=== PATIENT | male | born 1945 | race Hispanic/Latino ===

== ENCOUNTER 2017-07-27 17:54 | Inpatient (IN) | payer MEDICARE ==
[~2017-07-27 17:54] MED LIST: AMIDATE IV ONE
[2017-07-27] MEDS ORDERED: ADRENALIN IV ONE (17:55)
[2017-07-27] MEDS ORDERED: LEVOPHED DRIP 4 MG/NS 250 ML 4 MG/250 ML BAG IV ONE (18:08)
[2017-07-27] MEDS ORDERED: NACL 0.9% 1000 ML 1,000 ML IV ONE (18:18)
[2017-07-27] MEDS ORDERED: ARTIFICIAL TEARS OPHTH OINT OU PRN (18:19)
[2017-07-27] MEDS ORDERED: VASELINE LIP THERAPY TP PRN (18:19)
[2017-07-27] MEDS: LEVOPHED DRIP 4 MG/NS 250 ML 4 MG/250 ML BAG IV SCH ×3 (18:20→18:57)
--- NOTE | 2017-07-27 18:24 | Emergency Department Report ---
ED CPR HPI - General Chief Complaint: Cardiac Arrest/CPR Stated Complaint: CARDIAC ARREST Time Seen by Provider: 07/27/17 18:18 Source: EMS (verbal report received from EMS.ems notes not available at time of chart dictation) Mode of arrival: Stretcher Limitations: Other - History of Present Illness Initial Comments: This is a 71-year-old male who was previously unknown to this provider. Patient brought to the hospital by EMS as out of hospital cardiac arrest. As per verbal report from EMS, patient collapsed, they've had some convulsive-like activity, and lost pulses. EMS reports initial rhythm was either ventricular tachycardia or ventricular fibrillation. Patient received epinephrine in the field, multiple shocks in the field, chest compressions, intubation, high quality CPR, and 300 mg of amiodarone. EMS for further reported that patient was pulseless for approximately 40 minutes prior to arrival to this emergency Department. Upon arrival to the ER, patient is intubated, pupils are fixed and dilated and do not react to light. He is pulseless and his rhythm appears to be pulseless electrical activity. High quality CPR is continued. Patient given 2 g of magnesium sulfate. Standard ACLS interventions are provided. Patient's pulses were able to be obtained in the emergency department. His postresuscitation EKG demonstrated a ventricular escape rhythm. He was markedly unstable, and therefore required emergent central line placement for vasopressor therapy. Given that patient is hemodynamically unstable, and in extremis, standard barrier precautions were not followed, as patient required emergent placement of a central line. Patient started on norepinephrine, and subsequently vasopressin. EKG and case were transmitted to customer support representative, Dr. Missy Hernandez, who indicated he will closely follow with the patient , but also indicated that the patient was not suitable for the catheterization lab at this time given hemodynamic instability, and prolonged downtime. Even convulsive event, there is also concern for possible intracranial hemorrhage. Patient is currently at CT scan getting a CAT scan of the brain, chest, abdomen , pelvis. EMS reports that there is no head trauma, and that patient wasn't home laying down. Contacted [facility], discussed with Dr. 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 MD Complaint: stopped breathing -: minute(s) Place: home Initial Findings in the Field: VTACH/VFIB ROSC in the Field: No Treatments Prior to Arrival: intubation, chest compressions, defribrillated shocks #, epinephrine mgs #, amiodarone, magnesium (given in the emergency room) - Related Data Allergies Allergy/AdvReac Type Severity Reaction Status Date / Time acetaminophen [From Vicodin] Allergy Unknown Verified 07/27/17 18:13 hydrocodone [From Vicodin] Allergy Unknown Verified 07/27/17 18:13 zolpidem [From Ambien] Allergy Unknown Verified 07/27/17 18:13 ED Review of Systems ROS: Stated complaint: CARDIAC ARREST Other details as noted in HPI Comment: Unobtainable due to pts medical conditions ED Past Medical Hx - Past Medical History Hx Hypertension: Yes Hx Heart Attack/AMI: Yes - Social History Smoking Status: Unknown if ever smoked ED Physical Exam - General Limitations: Other (patient intubated, nonverbal) General appearance: obtunded - Head Head exam: Present: atraumatic, normocephalic - Eye Eye exam: Present: other (fixed and dilated pupils they do not react to light). Absent: normal appearance - ENT ENT exam: Present: other (endotracheal tube is noted in the oropharynx) - Neck Neck exam: Present: normal inspection - Respiratory Respiratory exam: Present: rhonchi. Absent: chest wall tenderness, accessory muscle use - Cardiovascular Cardiovascular Exam: Present: normal rhythm, bradycardia, normal heart sounds - GI/Abdominal GI/Abdominal exam: Present: soft, normal bowel sounds. Absent: distended, tenderness, guarding, rebound, rigid, pulsatile mass - exam: Present: normal inspection External exam: Present: normal external exam - Extremities Exam Extremities exam: Absent: tenderness, joint swelling - Back Exam Back exam: Absent: tenderness, CVA tenderness (R) - Neurological Exam Neurological exam: Present: altered - Psychiatric Psychiatric exam: Present: other (intubated, GCS of 3) - Skin Skin exam: Present: dry ED Course Vital Signs 07/27/17 07/27/17 07/27/17 18:02 18:13 18:16 Pulse Rate 28 L 46 L 45 L Respiratory 12 16 15 Rate Blood Pressure 91/62 84/53 Blood Pressure [Left] O2 Sat by Pulse 97 99 Oximetry 07/27/17 07/27/17 07/27/17 18:20 18:30 18:40 Pulse Rate 44 L 39 L 49 L Respiratory 23 16 16 Rate Blood Pressure 87/54 Blood Pressure 87/54 75/52 126/74 [Left] O2 Sat by Pulse 100 96 97 Oximetry 07/27/17 07/27/17 07/27/17 18:46 18:50 19:00 Pulse Rate 54 L 55 L 51 L Respiratory 16 16 22 Rate Blood Pressure 126/74 77/57 Blood Pressure 86/56 [Left] O2 Sat by Pulse 84 99 100 Oximetry 07/27/17 07/27/17 07/27/17 19:16 19:20 19:30 Pulse Rate 51 L 53 L 57 L Respiratory 15 16 Rate Blood Pressure 72/35 69/33 69/30 Blood Pressure [Left] O2 Sat by Pulse 100 100 100 Oximetry 07/27/17 07/27/17 07/27/17 19:46 20:00 20:15 Pulse Rate 58 L 58 L 57 L Respiratory 16 16 16 Rate Blood Pressure 78/45 86/28 146/122 Blood Pressure [Left] O2 Sat by Pulse 100 100 99 Oximetry 07/27/17 07/27/17 07/27/17 20:30 21:03 21:15 Pulse Rate 58 L 61 65 Respiratory 15 13 14 Rate Blood Pressure 67/25 67/25 85/31 Blood Pressure [Left] O2 Sat by Pulse 99 100 Oximetry - Reevaluation(s) Reevaluation #1: 07/27/17 20:54 Differential diagnosis, including but not limited to: Acute coronary syndrome, intracranial hemorrhage, diaphragmatic rupture, Assessment and plan: 71-year-old male with out of hospital cardiac arrest, with return of spontaneous circulation. Case is presented to interventional cardiology, Dr. Hernandez there closely following in consultation. Patient's hemodynamics are tenuous, cardiology indicates not suitable for Property Damage Claims Adjustor at this time, but they would like to be closely appraised of the patient's status. Noncontrast CT scan of the brain is pending to exclude intracranial hemorrhage. Patient's intubation x-ray demonstrated elevated left hemidiaphragm, therefore noncontrast CT scan of chest, abdomen, pelvis pending. We will discussed with critical care provider contracting consultant once his scans have resulted. Reevaluation #2: 07/27/17 22:[address] scan of the brain is negative. CT scan of the chest demonstrates lower lobe pneumonia. CT scan of the abdomen and pelvis suggests no acute or obstructive pathology noted. Patient started on sepsis pathway. Case presented to Hospital physician , Dr. Mcduffie, she accepts the patient to the medical service. Case rediscussed with cardiology, Dr. Hernandez, given sepsis, underlying comorbidities, cardiology does not feel that patient will benefit from emergent catheterization at this time. 07/27/17 22:06 - Consultations Consultation #1: 07/27/17 21:[address] Sagar Anglin, critical care, he agrees with placement into the intensive care unit, this [facility] does not have hypothermia protocol, so therefore the patient cannot be started on hypothermia protocol. - Central Line Placement Left Femoral Consent Obtained: emergent situation Time Out Performed: Yes Patient Placed on Monitor/Pulse Ox: Yes Prep: gloves Central Line Prep: Chlorhexidine scrub Ultrasound Used for Placement: Yes Central Line Lumen Inserted: triple Bloods Obtained for Lab: Yes Central Line Position: good blood return Dressing Applied: Tegaderm Patient Tolerated Procedure: well Complications: none Additional Comments: Patient hemodynamically unstable status post cardiac arrest required emergent placement of central line for vasopressor therapy administration, therefore standard barrier precautions were not followed. ED Medical Decision Making - Lab Data Result diagrams: 07/27/17 18:26 07/27/17 18:26 Vital Signs 07/27/17 07/27/17 07/27/17 18:13 18:20 18:30 Pulse Rate 46 L 44 L 39 L Respiratory 16 23 27 H Rate Blood Pressure 91/62 Blood Pressure 87/54 75/52 [Left] O2 Sat by Pulse 97 100 96 Oximetry 07/27/17 07/27/17 07/27/17 18:40 18:50 19:20 Pulse Rate 49 L 55 L 53 L Respiratory 16 16 Rate Blood Pressure 69/33 Blood Pressure 126/74 86/56 [Left] O2 Sat by Pulse 97 99 100 Oximetry Lab Results 07/27/17 07/27/17 07/27/17 Range/Units 18:24 18:26 18:26 WBC 15.6 H (4.5-11.0) K/mm3 RBC 4.64 (3.65-5.03) M/mm3 Hgb 13.1 (11.8-15.2) gm/dl Hct 41.5 (35.5-45.6) % MCV 89 (84-94) fl MCH 28 (28-32) pg MCHC 32 (32-34) % RDW 14.3 (13.2-15.2) % Plt Count 115 L (140-440) K/mm3 Add Manual Diff Complete Total Counted 100 Seg Neuts % (Manual) 57.0 (40.0-70.0) % Band Neutrophils % 0 % Lymphocytes % (Manual) 36.0 H (13.4-35.0) % Reactive Lymphs % (Man) 0 % Monocytes % (Manual) 7.0 (0.0-7.3) % Eosinophils % (Manual) 0 (0.0-4.3) % Basophils % (Manual) 0 (0.0-1.8) % Metamyelocytes % 0 % Myelocytes % 0 % Promyelocytes % 0 % Blast Cells % 0 % Nucleated RBC % Not Reportable Seg Neutrophils # Man 8.9 H (1.8-7.7) K/mm3 Band Neutrophils # 0.0 K/mm3 Lymphocytes # (Manual) 5.6 H (1.2-5.4) K/mm3 Abs React Lymphs (Man) 0.0 K/mm3 Monocytes # (Manual) 1.1 H (0.0-0.8) K/mm3 Eosinophils # (Manual) 0.0 (0.0-0.4) K/mm3 Basophils # (Manual) 0.0 (0.0-0.1) K/mm3 Metamyelocytes # 0.0 K/mm3 Myelocytes # 0.0 K/mm3 Promyelocytes # 0.0 K/mm3 Blast Cells # 0.0 K/mm3 WBC Morphology Not Reportable Hypersegmented Neuts Not Reportable Hyposegmented Neuts Not Reportable Hypogranular Neuts Not Reportable Smudge Cells Not Reportable Toxic Granulation Not Reportable Toxic Vacuolation Not Reportable Dohle Bodies Not Reportable Pelger-Huet Anomaly Not Reportable [place] Rods Not Reportable Platelet Estimate Consistent w auto Clumped Platelets Not Reportable Plt Clumps, EDTA Not Reportable Large Platelets Not Reportable Giant Platelets Not Reportable Platelet Satelliting Not Reportable Plt Morphology Comment Not Reportable RBC Morphology Not Reportable Dimorphic RBCs Not Reportable Polychromasia Not Reportable Hypochromasia Not Reportable Poikilocytosis Not Reportable Anisocytosis Rare Microcytosis Not Reportable Macrocytosis Not Reportable Spherocytes Not Reportable Pappenheimer Bodies Not Reportable Sickle Cells Not Reportable Target Cells Not Reportable Tear Drop Cells Not Reportable Ovalocytes Not Reportable Helmet Cells Not Reportable [place] Bodies Not Reportable [place] Not Reportable [place] Cells Not Reportable Bite Cells Not Reportable Crenated Cell Not Reportable Elliptocytes Not Reportable Acanthocytes (Spur) Not Reportable Rouleaux Not Reportable Hemoglobin C Crystals Not Reportable Schistocytes Not Reportable Malaria parasites Not Reportable Mina Bodies Not Reportable Hem Pathologist Commnt No PT 15.6 H (12.2-14.9) Sec. INR 1.18 H (0.87-1.13) APTT 38.5 H (24.2-36.6) Sec. POC ABG pH (7.35-7.45) POC ABG pCO2 (35-45) POC ABG pO2 (80-105) POC ABG HCO3 POC ABG Total CO2 POC ABG O2 Sat POC ABG Base Excess FiO2 % Sodium (137-145) mmol/L Potassium (3.6-5.0) mmol/L Chloride (98-107) mmol/L Carbon Dioxide (22-30) mmol/L Anion Gap mmol/L BUN (9-20) mg/dL Creatinine (0.8-1.5) mg/dL Estimated GFR ml/min BUN/Creatinine Ratio % Glucose (75-100) mg/dL Lactic Acid (0.7-2.0) mmol/L Calcium (8.4-10.2) mg/dL Total Creatine Kinase (55-170) units/L CK-MB (CK-2) (0.0-4.0) ng/mL CK-MB (CK-2) Rel Index (0-4) Troponin T (0.00-0.029) ng/mL Triglycerides (2-149) mg/dL Cholesterol (50-199) mg/dL LDL Cholesterol Direct (50-130) mg/dL HDL Cholesterol (40-59) mg/dL Cholesterol/HDL Ratio % Blood Type A POSITIVE Antibody Screen Negative 07/27/17 07/27/17 07/27/17 Range/Units 18:26 19:02 19:25 WBC (4.5-11.0) K/mm3 RBC (3.65-5.03) M/mm3 Hgb (11.8-15.2) gm/dl Hct (35.5-45.6) % MCV (84-94) fl MCH (28-32) pg MCHC (32-34) % RDW (13.2-15.2) % Plt Count (140-440) K/mm3 Add Manual Diff Total Counted Seg Neuts % (Manual) (40.0-70.0) % Band Neutrophils % % Lymphocytes % (Manual) (13.4-35.0) % Reactive Lymphs % (Man) % Monocytes % (Manual) (0.0-7.3) % Eosinophils % (Manual) (0.0-4.3) % Basophils % (Manual) (0.0-1.8) % Metamyelocytes % % Myelocytes % % Promyelocytes % % Blast Cells % % Nucleated RBC % Seg Neutrophils # Man (1.8-7.7) K/mm3 Band Neutrophils # K/mm3 Lymphocytes # (Manual) (1.2-5.4) K/mm3 Abs React Lymphs (Man) K/mm3 Monocytes # (Manual) (0.0-0.8) K/mm3 Eosinophils # (Manual) (0.0-0.4) K/mm3 Basophils # (Manual) (0.0-0.1) K/mm3 Metamyelocytes # K/mm3 Myelocytes # K/mm3 Promyelocytes # K/mm3 Blast Cells # K/mm3 WBC Morphology Hypersegmented Neuts Hyposegmented Neuts Hypogranular Neuts Smudge Cells Toxic Granulation Toxic Vacuolation Dohle Bodies Pelger-Huet Anomaly [place] Rod[place] Platelet Estimate Clumped Platelets Plt Clumps, EDTA Large Platelets Giant Platelets Platelet Satelliting Plt Morphology Comment RBC Morphology Dimorphic RBCs Polychromasia Hypochromasia Poikilocytosis Anisocytosis Microcytosis Macrocytosis Spherocytes Pappenheimer Bodies Sickle Cells Target Cells Tear Drop Cells Ovalocytes Helmet Cells [place] Bodies [place] Cells Bite Cells Crenated Cell Elliptocytes Acanthocytes (Spur) Rouleaux Hemoglobin C Crystals Schistocytes Malaria parasites Mina Bodies Hem Pathologist Commnt PT (12.2-14.9) Sec. INR (0.87-1.13) APTT (24.2-36.6) Sec. POC ABG pH 7.155 L (7.35-7.45) POC ABG pCO2 47.7 H (35-45) POC ABG pO2 229 H (80-105) POC ABG HCO3 16.8 POC ABG Total CO2 18 POC ABG O2 Sat 100 POC ABG Base Excess -12 FiO2 100 % Sodium 143 (137-145) mmol/L Potassium 4.2 (3.6-5.0) mmol/L Chloride 103.6 (98-107) mmol/L Carbon Dioxide 21 L (22-30) mmol/L Anion Gap 23 mmol/L BUN 19 (9-20) mg/dL Creatinine 1.3 (0.8-1.5) mg/dL Estimated GFR 55 ml/min BUN/Creatinine Ratio 15 % Glucose 252 H (75-100) mg/dL Lactic Acid 6.00 H* (0.7-2.0) mmol/L Calcium 7.7 L (8.4-10.2) mg/dL Total Creatine Kinase 101 (55-170) units/L CK-MB (CK-2) 3.9 (0.0-4.0) ng/mL CK-MB (CK-2) Rel Index 3.8 (0-4) Troponin T 0.090 H (0.00-0.029) ng/mL Triglycerides 190 H (2-149) mg/dL Cholesterol 93 (50-199) mg/dL LDL Cholesterol Direct 34 L (50-130) mg/dL HDL Cholesterol 21 L (40-59) mg/dL Cholesterol/HDL Ratio 4.42 % Blood Type Antibody Screen - EKG Data 07/27/17 20:58 EKG #1 demonstrates junctional rhythm, bradycardic, 45 bpm, left axis deviation , QTC prolonged, abnormal EKG, not morphologically consistent with ST elevation myocardial infarction. EKG #2 suggests accelerated junctional rhythm, motion artifact, left axis, 58 bpm, not morphologically consistent with ST elevation myocardial infarction. - Radiology Data Radiology results: report reviewed, image reviewed [facility] [address] [place] [address] XRay Report Signed Patient: MARY SANTANA MR#: [id number] : 1945 Acct:[id number] Age/Sex: 71 / M ADM Date: 07/27/17 Loc: ED Attending Dr: Ordering Physician: KRANTHI VEGA MD Date of Service: 07/27/17 Procedure(s): XR chest 1V ap Accession Number(s): [id number] cc: KRANTHI VEGA MD Fluoro Time In Minutes: FINAL REPORT PROCEDURE: XR CHEST 1V AP TECHNIQUE: Chest radiograph anteroposterior view. CPT 63729 HISTORY: ETT placement COMPARISON: No prior studies are available for comparison. FINDINGS: Heart: Moderate cardiomegaly. One Mediastinum/Vessels: Mild central congestion. Midline sternotomy wires and vascular clips. Lungs/Pleural space: Elevation left hemidiaphragm with left lung base atelectasis. COPD. Bony thorax: No acute osseous abnormality. Life support devices: Endotracheal tube tip 6 centimeters from the bifurcation. NG tube along the esophagus terminating in the left upper quadrant region of fundus. IMPRESSION: Elevation left hemidiaphragm with left lung base atelectasis. Heart is not enlarged with central vascular congestion Transcribed By: WEP Dictated By: ALBER CHOI MD Electronically Authenticated By: ALBER CHOI MD Signed Date/Time: 07/27/17 1606 Critical Care Time: Yes Critical care time in (mins) excluding proc time.: 60 Critical care attestation.: If time is entered above; I have spent that time in minutes in the direct care of this critically ill patient, excluding procedure time. ED Disposition Clinical Impression: SIRS (systemic inflammatory response syndrome), Cardiac arrest Disposition: OP ADMIT IP TO THIS HOSP Is pt being admited?: Yes Condition: Critical Referrals: PRIMARY CARE, [Referring] - 3-5 Days
[2017-07-27] MEDS ORDERED: NACL 0.9% 1000 ML 2,000 ML IV ONE (18:25)
[2017-07-27 18:46] LABS: Hematocrit 41.5 % (35.5-45.6); Hemoglobin 13.1 gm/dl (11.8-15.2); Mean Corpuscular HGB Conc 32 % (32-34); Mean Corpuscular Hemoglobin 28 pg (28-32); Mean Corpuscular Volume 89 fl (84-94); Platelet Count 115 K/mm3 (140-440); Red Blood Count 4.64 M/mm3 (3.65-5.03); Red Cell Distribution Width 14.3 % (13.2-15.2)
[2017-07-27 18:56] LABS: INR 1.18 (0.87-1.13)
[2017-07-27 18:57] LABS: Partial Thromboplastin Time 38.5 Sec. (24.2-36.6)
[2017-07-27] MEDS ORDERED: ATIVAN 100 MG in NACL 0.9% 50 ML, VIAFLEX EMPTY CONTAINER 0 ML IV SCH (19:00)
[2017-07-27] MEDS ORDERED: fentaNYL DRIP Premix 2,000 MCG/100 ML BAG IV SCH (19:00)
[2017-07-27] MEDS ORDERED: NACL 0.9% 500 ML IV SCH (19:00)
[2017-07-27 19:14] LABS: Calcium 7.7 mg/dL (8.4-10.2)
[2017-07-27 19:16] LABS: Creatine Kinase MB 3.9 ng/mL (0.0-4.0)
[2017-07-27 19:29] LABS: Chol/HDL Ratio 4.42 %
[2017-07-27] MEDS: Vasostrict 20 UNIT in NACL 0.9% 100 ML IV SCH (19:35)
[2017-07-27 19:58] LABS: Basophils % (Manual) 0 % (0.0-1.8); Eosinophils % (Manual) 0 % (0.0-4.3); Total Cells Counted 100
[2017-07-27 19:59] LABS: Anisocytosis RARE; Platelet Estimate Consistent w Auto
--- NOTE | 2017-07-27 20:09 | XRay Report ---
FINAL REPORT PROCEDURE: XR CHEST 1V AP TECHNIQUE: Chest radiograph anteroposterior view. CPT 36904 HISTORY: ETT placement COMPARISON: No prior studies are available for comparison. FINDINGS: Heart: Moderate cardiomegaly. One Mediastinum/Vessels: Mild central congestion. Midline sternotomy wires and vascular clips. Lungs/Pleural space: Elevation left hemidiaphragm with left lung base atelectasis. COPD. Bony thorax: No acute osseous abnormality. Life support devices: Endotracheal tube tip 6 centimeters from the bifurcation. NG tube along the esophagus terminating in the left upper quadrant region of fundus. IMPRESSION: Elevation left hemidiaphragm with left lung base atelectasis. Heart is not enlarged with central vascular congestion
--- NOTE | 2017-07-27 21:13 | Cat Scan Report ---
FINAL REPORT PROCEDURE: CT HEAD/BRAIN WO CON TECHNIQUE: Computerized tomography of the head was performed without contrast material. HISTORY: ams COMPARISON: No prior studies are available for comparison. FINDINGS: Skull and scalp: Normal. Paranasal sinuses: Air-fluid level and thickening maxillary sinuses left greater than right Ventricles and subarachnoid spaces: Normal. Cerebrum: No evidence of hemorrhage, acute infarction or mass . Cerebellum and brainstem: No evidence of hemorrhage, acute infarction or mass. Vasculature: No hyperdense MCA Comments: Moderate diffuse atrophy with mild to moderate periventricular microischemic change and central lacunar infarct disease. IMPRESSION: No definite evidence of acute intracranial pathology seen at this time. If symptoms and or concern persists recommend followup MRI.
--- NOTE | 2017-07-27 21:47 | Cat Scan Report ---
FINAL REPORT PROCEDURE: CT ABDOMEN PELVIS WO CON TECHNIQUE: Computerized axial tomography of the abdomen and pelvis was performed without intravenous contrast. This study is performed without intravascular contrast material and its sensitivity for abdominal and pelvic pathology, including neoplasms, inflammation, abscess, free fluid, thrombosis, arterial dissection and infarction, is reduced compared with a contrast enhanced study. HISTORY: cardiac arrest COMPARISON: No prior studies are available for comparison. FINDINGS: Streak artifact related to EKG wires and leads arm positioning Visualized lower thorax: Defer to CT chest. Patchy atelectasis lower lung zones. Elevation left hemidiaphragm. Liver: Enlarged heterogeneous appearing liver with mild perihepatic ascites. Spleen: Splenic atrophy. Gallbladder and biliary system: Metallic clips from prior cholecystectomy Pancreas: No diffuse pancreatic atrophy with slight indistinctness about the pancreatic head. Adrenals: Normal. Kidneys: Heterogeneous kidneys with low attenuated lesions in each kidney largest seen in the right lower kidney in the 4 centimeter range likely cysts. Mild stranding around each kidney. 2 millimeter nephrolith right upper kidney 2 millimeter urolith left mid upper kidney. GI tract: No oral contrast. NG tube in the fundus.. Moderate stool density throughout the large bowel normal caliber appendix. Mild thickening of the mid transverse colon nonspecific. Fluid-filled mildly distended cecum Lymph nodes and mesentery: Normal. Vasculature: Normal. Bladder: Jacob balloon catheter in the decompressed bladder . Reproductive organs: Metallic seed implants in the prostate region Peritoneum: No free fluid. Musculoskeletal structures: No significant abnormality. Other: Bilateral inguinal herniations fat without bowel involvement. Left common femoral venous catheter tip in the external iliac vein IMPRESSION: No acute or obstructive pathology seen of the abdomen pelvis.
--- NOTE | 2017-07-27 21:53 | Cat Scan Report ---
FINAL REPORT PROCEDURE: CT CHEST WO CON TECHNIQUE: Computerized axial tomography of the chest was performed without contrast material. This study is performed without intravenous contrast and the sensitivity for pathology, including neoplasms, adenopathy, abscess, pulmonary embolism and aortic dissection, is reduced. HISTORY: arrest COMPARISON: CT abdomen pelvis today TECHNICAL QUALITY: Satisfactory. FINDINGS: Heart and pericardium: Mild to moderate cardiomegaly. Prior sternotomy Thoracic aorta: Atherosclerosis. Pulmonary vasculature: Mild to moderate central congestion. Indeterminate evaluation of the lumen of the pulmonary vessels without IV contrast Lymph nodes: Mediastinal and hilar lymph nodes mildly prominent. Right pretracheal and left periaortic lymphadenopathy measuring in the 1 x 1.5 centimeter range seen. Lungs/pleural space: Elevation left hemidiaphragm. Airspace process in the left lower lung zone with consolidative features.. Bilateral pleural thickening and posterior lower lung zone atelectasis. Hazy interstitial markings in the lower lung zones with bronchovascular sheath thickening. Trace left pleural effusion. Musculoskeletal structures: No significant abnormality. Upper abdominal structures: Contracted gallbladder with possible stones. Indeterminate for slight stranding around the gallbladder fossa area. Adrenal hyperplasia left adrenal gland Endotracheal tube tip above the bifurcation. NG tube along the esophagus. IMPRESSION: Patchy airspace infiltrate in the left lower lung zone with trace pleural effusion. Elevation left hemidiaphragm. Posterior lower lung zone atelectasis. Heavily calcified atherosclerosis aorta. Endotracheal tube and NG tube in place.
[2017-07-27] MEDS ORDERED: ROCEPHIN/NS 1 GM/50 ML 1 GM/50 ML BAG IV ONE (22:03)
[2017-07-27] MEDS ORDERED: NACL 0.9% 1000 ML IV ONE (22:03)
[2017-07-27] MEDS ORDERED: ASPIRIN PR ONE (22:06)
[2017-07-27 22:13] LABS: Creatine Kinase MB 4.8 ng/mL (0.0-4.0)
[2017-07-27] MEDS ORDERED: ROCEPHIN 1 GM in NACL 0.9% 20 ML IV ONE (22:15)
[2017-07-27] MEDS ORDERED: ZOFRAN IV PRN (22:36)
[2017-07-27] MEDS ORDERED: PROVENTIL IH PRN (22:36)
--- NOTE | 2017-07-27 22:50 | History and Physical Report ---
History of Present Illness Date of examination: 07/27/17 History of present illness: 71 year old man with history of CAD, CHF was brought to the emerghency room after he had a cardiac arrest at home. Spouse at bedside states that he had a cough productive of yellow phlegm, fever 3 days. Today he was healthy and his family at home to put away packages, he became short of breath and 5 minutes later, the family went to check on him, he was not breathing, they started CPR. EMS was called, CPR was continued for another 40 minutes prior to arrival in the emergency room, he had a V. fib or V. tach rhythm for which he was shocked per EMS. CPR was continued in the emergency room, he was hypotensive and placed on levothyroid and vasopressin. Her review of system is unobtainable PAST MEDICAL HISTORY:CAD, CHF PAST SURGICAL HISTORY CABG, wrist: FAMILY HISTORY: Hypertension SOCIAL HISTORY: No alcohol, tobacco or drugs Medications and Allergies Allergies Allergy/AdvReac Type Severity Reaction Status Date / Time acetaminophen [From Vicodin] Allergy Unknown Verified 07/27/17 18:13 hydrocodone [From Vicodin] Allergy Unknown Verified 07/27/17 18:13 zolpidem [From Ambien] Allergy Unknown Verified 07/27/17 18:13 Home Medications Medication Instructions Recorded Confirmed Last Taken Type Aspirin [Aspirin BABY CHEW TAB] 1 tab PO QDAY 07/29/17 07/29/17 07/25/17 History AtorvaSTATin [Lipitor] 40 mg PO QHS 07/29/17 07/29/17 07/25/17 History Clopidogrel [Plavix] 75 mg PO QDAY 07/29/17 07/29/17 07/25/17 History ISOSORBIDE MONOnitrate [Imdur ER] 30 mg PO DAILY 07/29/17 07/29/17 07/25/17 History Spironolactone [Aldactone] 25 mg PO QDAY 07/29/17 07/29/17 07/25/17 History Tamsulosin HCl [Flomax] 1 tab PO QDAY 07/29/17 07/29/17 07/25/17 History Carvedilol [Coreg] 12.5 mg PO BID 07/30/17 07/30/17 07/27/17 09:00 History Sacubitril/Valsartan [Entresto 49 49 - 51 mg PO BID 07/30/17 07/30/17 07/27/17 09:00 History mg-51 mg Tablet] Active Meds: Active Medications Albuterol (Proventil) 2.5 mg IH Q3HRT PRN PRN Reason: Shortness Of Breath Enoxaparin Sodium (Lovenox) 40 mg SUB-Q QDAY DANIEL Hydrophilic Ointment (Vaseline Lip Therapy) 1 applic TP Q2HR PRN PRN Reason: Dry Lips Fentanyl Citrate (Fentanyl Drip Premix) 2,000 mcg in 100 mls @ 5.216 mls/hr IV TITR DANIEL; 1 MCG/KG/HR PRN Reason: Protocol Lorazepam 100 mg/ Sodium Chloride/ Miscellaneous Information 100 mls @ 1 mls/ hr IV TITR DANIEL; 1 MG/HR PRN Reason: Protocol Norepinephrine (Levophed Drip 4 Mg/Ns 250 Ml) 4 mg in 250 mls @ 7.5 mls/hr IV TITR DANIEL; 2 MCG/MIN PRN Reason: Protocol Last Admin: 07/27/17 18:57 Dose: 25 mcg/min, 93.75 mls/hr Vasopressin 20 unit/ Sodium (Chloride) 101 mls @ 9.09 mls/hr IV TITR DANIEL; 0.03 UNITS/MIN PRN Reason: Protocol Last Admin: 07/27/17 19:35 Dose: 0.03 units/min, 9.09 mls/hr Piperacillin Sod/Tazobactam Sod (Zosyn/Ns 3.375gm/50ml) 3.375 gm in 50 mls @ 100 mls/hr IV Q8HR DANIEL PRN Reason: Protocol Multi-Ingred Cream/Lotion/Oil/Oint (Artificial Tears Ophth Oint) 1 applic OU Q4HR PRN PRN Reason: Dry Eye(s) Ondansetron HCl (Zofran) 4 mg IV Q8H PRN PRN Reason: N/V unrelieved by Reglan Sodium Chloride (Nacl 0.9% 500 Ml) 1 ml IV DIRECT DANIEL Exam - Physical Exam Narrative exam: Gen. appearance: Patient lying in bed in no acute distress, intubated HEENT: Normocephalic/atraumatic, pupils non-reactive, unable to do extra occular movement , no scleral icterus, no JVD or thyromegaly or nodule, neck is supple, mucous membrane moist, unable to examine oral cavity Heart: S1-S2, regular rate and rhythm Lungs: Clear to auscultation bilateral breathing comfortable Abdomen: Positive bowel sounds, soft, nondistended, no organomegaly Extremities: No edema, cyanosis, clubbing Neuro:: Sedated Skin: No rash, nodules, warm dry - Constitutional Vitals: Temp Pulse Resp BP Pulse Ox 66 18 112/37 99 07/27/17 22:15 07/27/17 22:15 07/27/17 22:15 07/27/17 22:15 Results - Labs CBC & Chem 7: 08/07/17 05:24 08/07/17 05:24 Labs: Abnormal lab results 07/27/17 07/27/17 07/27/17 Range/Units 18:26 18:26 18:26 WBC 15.6 H (4.5-11.0) K/mm3 Plt Count 115 L (140-440) K/mm3 Lymphocytes % (Manual) 36.0 H (13.4-35.0) % Seg Neutrophils # Man 8.9 H (1.8-7.7) K/mm3 Lymphocytes # (Manual) 5.6 H (1.2-5.4) K/mm3 Monocytes # (Manual) 1.1 H (0.0-0.8) K/mm3 PT 15.6 H (12.2-14.9) Sec. INR 1.18 H (0.87-1.13) APTT 38.5 H (24.2-36.6) Sec. POC ABG pH (7.35-7.45) POC ABG pCO2 (35-45) POC ABG pO2 (80-105) Carbon Dioxide 21 L (22-30) mmol/L Glucose 252 H (75-100) mg/dL Lactic Acid (0.7-2.0) mmol/L Calcium 7.7 L (8.4-10.2) mg/dL CK-MB (CK-2) (0.0-4.0) ng/mL Troponin T 0.090 H (0.00-0.029) ng/mL Triglycerides 190 H (2-149) mg/dL LDL Cholesterol Direct 34 L (50-130) mg/dL HDL Cholesterol 21 L (40-59) mg/dL 07/27/17 07/27/1707/27/17 Range/Units 19:02 19:25 21:43 WBC (4.5-11.0) K/mm3 Plt Count (140-440) K/mm3 Lymphocytes % (Manual) (13.4-35.0) % Seg Neutrophils # Man (1.8-7.7) K/mm3 Lymphocytes # (Manual) (1.2-5.4) K/mm3 Monocytes # (Manual) (0.0-0.8) K/mm3 PT (12.2-14.9) Sec. INR (0.87-1.13) APTT (24.2-36.6) Sec. POC ABG pH 7.155 L (7.35-7.45) POC ABG pCO2 47.7 H (35-45) POC ABG pO2 229 H (80-105) Carbon Dioxide (22-30) mmol/L Glucose (75-100) mg/dL Lactic Acid 6.00 H* (0.7-2.0) mmol/L Calcium (8.4-10.2) mg/dL CK-MB (CK-2) 4.8 H (0.0-4.0) ng/mL Troponin T 0.149 H* D (0.00-0.029) ng/mL Triglycerides (2-149) mg/dL LDL Cholesterol Direct (50-130) mg/dL HDL Cholesterol (40-59) mg/dL - Imaging and Cardiology EKG: image reviewed Chest x-ray: image reviewed CT scan - abdomen: report reviewed CT scan - chest: report reviewed CT Scan - head: report reviewed Assessment and Plan Assessment Cardiac arrest Acute respiratory failure Septic shock Coronary artery disease CHF, stable Thrombocytopenia Plan Admit to medicine Continue levothyroid, vasopressin, and IV fluid, the patient with CHF Start Zosyn, first dose now, vancomycin, continue Rocephin, follow cultures Check serial lactate, check cardiac enzymes, echo Consult cardiology, critical care DT prophylaxis
[2017-07-27 23:19] LABS: Amphetamine Screen,Urine PRESUMPTIVE NEGATIVE; Benzodiazepines Screen,Urine PRESUMPTIVE NEGATIVE; Cannabinoid Screen,Urine PRESUMPTIVE NEGATIVE; Cocaine Screen,Urine PRESUMPTIVE NEGATIVE; Methadone Screen,Urine PRESUMPTIVE NEGATIVE; Opiate Screen,Urine PRESUMPTIVE NEGATIVE
[2017-07-27 23:41] LABS: Creatine Kinase MB 9.4 ng/mL (0.0-4.0)
[2017-07-27 23:51] LABS: Bacteria,Urine 1+ /HPF (Negative); Mucus,Urine FEW /HPF
[2017-07-27 23:57] LABS: Bilirubin,Urine Negative (Negative); Color,Urine Yellow (Yellow)
[2017-07-27 23:58] LABS: Blood,Urine Trace (Negative)
[2017-07-27 23:59] LABS: Nitrite,Urine Negative (Negative); Urobilinogen,Urine < 2.0 mg/dL (<2.0)
[2017-07-28] MEDS: ZOSYN/NS 3.375GM/50ML 3.375 GM/50 ML BAG IV SCH ×2 (00:08→08:40)
[2017-07-28] MEDS: LEVOPHED DRIP 4 MG/NS 250 ML 4 MG/250 ML BAG IV SCH ×2 (00:37→02:52)
[2017-07-28] MEDS ORDERED: LEVOPHED DRIP 4 MG/NS 250 ML 4 MG/250 ML BAG IV SCH (01:00)
[2017-07-28] MEDS ORDERED: VANCOMYCIN/NS 1 GM/250 ML 1 GM/250 ML BAG IV ONE (02:00)
--- NOTE | 2017-07-28 02:39 | XRay Report ---
FINAL REPORT EXAM: XR CHEST 1V AP HISTORY: follow up respiratory failure TECHNIQUE: A portable upright view of the chest was submitted. Comparison is made the study of 07/27/2017. FINDINGS: There are sternotomy sutures. The heart is moderately enlarged. The lungs are mildly congested. There is chronic elevation of the left hemidiaphragm. The ET tube and NG tube appear in good position. The bones and soft tissues otherwise are unchanged. IMPRESSION: Previous bypass surgery. Cardiomegaly with mild vascular congestion.
[2017-07-28] MEDS: Vasostrict 20 UNIT in NACL 0.9% 100 ML IV SCH ×2 (03:44→15:48)
[2017-07-28 06:46] LABS: Hematocrit 42.8 % (35.5-45.6); Hemoglobin 13.3 gm/dl (11.8-15.2); Lymphocytes # (Auto) 1.4 K/mm3 (1.2-5.4); Lymphocytes % (Auto) 8.4 % (13.4-35.0); Mean Corpuscular HGB Conc 31 % (32-34); Mean Corpuscular Hemoglobin 28 pg (28-32); Mean Corpuscular Volume 90 fl (84-94); Monocytes # (Auto) 1.3 K/mm3 (0.0-0.8); Monocytes % (Auto) 7.5 % (0.0-7.3); Platelet Count 141 K/mm3 (140-440); Red Blood Count 4.79 M/mm3 (3.65-5.03); Red Cell Distribution Width 14.5 % (13.2-15.2)
[2017-07-28 07:09] LABS: Calcium 6.8 mg/dL (8.4-10.2)
[2017-07-28 07:11] LABS: Creatine Kinase MB 10.8 ng/mL (0.0-4.0)
--- NOTE | 2017-07-28 08:44 | Progress Note ---
Assessment and Plan Assessment and plan: Cardio-resp arrest at home. Admitted to ICU. He is intubated, on vent. Pulm consulted. As per ED Physician notes, downtime about 40 mins, no pulse for about 40 mins. He had ventricular fib/v tach rhythm, was shocked, given Amiodarone,intubated by paramedics before before brought to ED. CPR continued in ED before he regained pulse. Cardiology and Pulmonology consulted. Shock. Cardiogenic +/- septic shock. He is on 2 pressors-Levophed and Vasopressin. Titrate to keep MAP > 65 Acute kidney Injury due to acute tubular necrosis. Creatinine increased. Was 1.3 on admission, now 2.0. Consult Nephrology. Elevated Troponin. To r/o NSTEMI CAD s/p CABG. cardiology consulted. Ischemic cardiomyopathy Encephalopathy Full code status Discussed with at bedside. I informed her that prognosis is poor because of about 40mins downtime. I discussed code status and she wishes to continue full code. History Interval history: Patient had cardio-resp arrest at home, brought to ED by paramadics, Intubated, on vent Hospitalist Physical - Physical exam Narrative exam: GEN APPEARANCE : Intubated,on ventilator HEENT: Normocephalic, atraumatic NECK : supple, no JVD LUNGS: Clear to auscultation bilaterally, no wheeze, HEART: S1 and S2 regular, no murmurs, rubs or gallop, ABD: Soft, non tender, non distended, normal bowel sounds EXT: No edema, no clubbing, no cyanosis NEURO: Unresponsive, intubated - Constitutional Vitals: Temp Pulse Resp BP Pulse Ox 99.4 F 61 16 119/74 98 07/28/17 07:55 07/28/17 07:40 07/28/17 07:40 07/28/17 07:40 07/28/17 07:40 Results - Labs CBC & Chem 7: 07/28/17 06:30 07/28/17 05:44 Labs: Laboratory Last Values WBC 16.9 K/mm3 (4.5-11.0) H 07/28/17 06:30 RBC 4.79 M/mm3 (3.65-5.03) 07/28/17 06:30 Hgb 13.3 gm/dl (11.8-15.2) 07/28/17 06:30 Hct 42.8 % (35.5-45.6) 07/28/17 06:30 MCV 90 fl (84-94) 07/28/17 06:30 MCH 28 pg (28-32) 07/28/17 06:30 MCHC 31 % (32-34) L 07/28/17 06:30 RDW 14.5 % (13.2-15.2) 07/28/17 06:30 Plt Count 141 K/mm3 (140-440) 07/28/17 06:30 Lymph % (Auto) 8.4 % (13.4-35.0) L 07/28/17 06:30 [place] % (Auto) 7.5 % (0.0-7.3) H 07/28/17 06:30 Eos % (Auto) 0.0 % (0.0-4.3) 07/28/17 06:30 Baso % (Auto) 0.0 % (0.0-1.8) 07/28/17 06:30 Lymph # 1.4 K/mm3 (1.2-5.4) 07/28/17 06:30 [place] # 1.3 K/mm3 (0.0-0.8) H 07/28/17 06:30 Eos # 0.0 K/mm3 (0.0-0.4) 07/28/17 06:30 Baso # 0.0 K/mm3 (0.0-0.1) 07/28/17 06:30 Add Manual Diff Complete 07/27/17 18:26 Total Counted 100 07/27/17 18:26 Seg Neutrophils % 84.1 % (40.0-70.0) H 07/28/17 06:30 Seg Neuts % (Manual) 57.0 % (40.0-70.0) 07/27/17 18:26 Band Neutrophils % 0 % 07/27/17 18:26 Lymphocytes % (Manual) 36.0 % (13.4-35.0) H 07/27/17 18:26 Reactive Lymphs % (Man) 0 % 07/27/17 18:26 Monocytes % (Manual) 7.0 % (0.0-7.3) 07/27/17 18:26 Eosinophils % (Manual) 0 % (0.0-4.3) 07/27/17 18:26 Basophils % (Manual) 0 % (0.0-1.8) 07/27/17 18:26 Metamyelocytes % 0 % 07/27/17 18:26 Myelocytes % 0 % 07/27/17 18:26 Promyelocytes % 0 % 07/27/17 18:26 Blast Cells % 0 % 07/27/17 18:26 Nucleated RBC % Not Reportable 07/27/17 18:26 Seg Neutrophils # 14.2 K/mm3 (1.8-7.7) H 07/28/17 06:30 Seg Neutrophils # Man 8.9 K/mm3 (1.8-7.7) H 07/27/17 18:26 Band Neutrophils # 0.0 K/mm3 07/27/17 18:26 Lymphocytes # (Manual) 5.6 K/mm3 (1.2-5.4) H 07/27/17 18:26 Abs React Lymphs (Man) 0.0 K/mm3 07/27/17 18:26 Monocytes # (Manual) 1.1 K/mm3 (0.0-0.8) H 07/27/17 18:26 Eosinophils # (Manual) 0.0 K/mm3 (0.0-0.4) 07/27/17 18:26 Basophils # (Manual) 0.0 K/mm3 (0.0-0.1) 07/27/17 18:26 Metamyelocytes # 0.0 K/mm3 07/27/17 18:26 Myelocytes # 0.0 K/mm3 07/27/17 18:26 Promyelocytes # 0.0 K/mm3 07/27/17 18:26 Blast Cells # 0.0 K/mm3 07/27/17 18:26 WBC Morphology Not Reportable 07/27/17 18:26 Hypersegmented Neuts Not Reportable 07/27/17 18:26 Hyposegmented Neuts Not Reportable 07/27/17 18:26 Hypogranular Neuts Not Reportable 07/27/17 18:26 Smudge Cells Not Reportable 07/27/17 18:26 Toxic Granulation Not Reportable 07/27/17 18:26 Toxic Vacuolation Not Reportable 07/27/17 18:26 Dohle Bodies Not Reportable 07/27/17 18:26 Pel[place]-Huet Anomaly Not Reportable 07/27/17 18:26 [place] Rods Not Reportable 07/27/17 18:26 Platelet Estimate Consistent w auto 07/27/17 18:26 Clumped Platelets Not Reportable 07/27/17 18:26 Plt Clumps, EDTA Not Reportable 07/27/17 18:26 Large Platelets Not Reportable 07/27/17 18:26 Giant Platelets Not Reportable 07/27/17 18:26 Platelet Satelliting Not Reportable 07/27/17 18:26 Plt Morphology Comment Not Reportable 07/27/17 18:26 RBC Morphology Not Reportable 07/27/17 18:26 Dimorphic RBCs Not Reportable 07/27/17 18:26 Polychromasia Not Reportable 07/27/17 18:26 Hypochromasia Not Reportable 07/27/17 18:26 Poikilocytosis Not Reportable 07/27/17 18:26 Anisocytosis Rare 07/27/17 18:26 Microcytosis Not Reportable 07/27/17 18:26 Macrocytosis Not Reportable 07/27/17 18:26 Spherocytes Not Reportable 07/27/17 18:26 Pappenheimer Bodies Not Reportable 07/27/17 18:26 Sickle Cells Not Reportable 07/27/17 18:26 Target Cells Not Reportable 07/27/17 18:26 Tear Drop Cells Not Reportable 07/27/17 18:26 Ovalocytes Not Reportable 07/27/17 18:26 Helmet Cells Not Reportable 07/27/17 18:26 [place] Bodies Not Reportable 07/27/17 18:26 [place] Rings Not Reportable 07/27/17 18:26 [place] Cells Not Reportable 07/27/17 18:26 Bite Cells Not Reportable 07/27/17 18:26 Crenated Cell Not Reportable 07/27/17 18:26 Elliptocytes Not Reportable 07/27/17 18:26 Acanthocytes (Spur) Not Reportable 07/27/17 18:26 Rouleaux Not Reportable 07/27/17 18:26 Hemoglobin C Crystals Not Reportable 07/27/17 18:26 Schistocytes Not Reportable 07/27/17 18:26 Malaria parasites Not Reportable 07/27/17 18:26 [place] Bodies Not Reportable 07/27/17 18:26 Hem Pathologist Commnt No 07/27/17 18:26 PT 15.6 Sec. (12.2-14.9) H 07/27/17 18:26 INR 1.18 (0.87-1.13) H 07/27/17 18:26 APTT 38.5 Sec. (24.2-36.6) H 07/27/17 18:26 POC ABG pH 7.268 (7.35-7.45) L 07/28/17 05:29 POC ABG pCO2 34.8 (35-45) L 07/28/17 05:29 POC ABG pO2 99 (80-105) 07/28/17 05:29 POC ABG HCO3 15.9 07/28/17 05:29 POC ABG Total CO2 17 07/28/17 05:29 POC ABG O2 Sat 97 07/28/17 05:29 POC ABG Base Excess -11 07/28/17 05:29 FiO2 50 % 07/28/17 05:29 Sodium 146 mmol/L (137-145) H 07/28/17 05:44 Potassium 5.1 mmol/L (3.6-5.0) H D 07/28/17 05:44 Chloride 113.3 mmol/L (98-107) H 07/28/17 05:44 Carbon Dioxide 18 mmol/L (22-30) L 07/28/17 05:44 Anion Gap 20 mmol/L 07/28/17 05:44 BUN 29 mg/dL (9-20) H 07/28/17 05:44 Creatinine 2.0 mg/dL (0.8-1.5) H D 07/28/17 05:44 Estimated GFR 33 ml/min 07/28/17 05:44 BUN/Creatinine Ratio 15 % 07/28/17 05:44 Glucose 194 mg/dL (75-100) H 07/28/17 05:44 POC Glucose 199 (70-105) H 07/28/17 01:47 Lactic Acid 2.10 mmol/L (0.7-2.0) H* 07/28/17 05:44 Calcium 6.8 mg/dL (8.4-10.2) L 07/28/17 05:44 Total Creatine Kinase 434 units/L (55-170) H 07/28/17 05:44 CK-MB (CK-2) 10.8 ng/mL (0.0-4.0) H 07/28/17 05:44 CK-MB (CK-2) Rel Index 2.4 (0-4) 07/28/17 05:44 Troponin T 0.521 ng/mL (0.00-0.029) H* D 07/28/17 05:44 Triglycerides 190 mg/dL (2-149) H 07/27/17 18:26 Cholesterol 93 mg/dL (50-199) 07/27/17 18:26 LDL Cholesterol Direct 34 mg/dL (50-130) L 07/27/17 18:26 HDL Cholesterol 21 mg/dL (40-59) L 07/27/17 18:26 Cholesterol/HDL Ratio 4.42 % 07/27/17 18:26 Urine Color Yellow (Yellow) 07/27/17 22:46 Urine Turbidity Hazy (Clear) 07/27/17 22:46 Urine pH 5.0 (5.0-7.0) 07/27/17 22:46 Ur Specific Telephone 1.030 (1.003-1.030) 07/27/17 22:46 Urine Protein 30 mg/dl mg/dL (Negative) 07/27/17 22:46 Urine Glucose (UA) Negative mg/dL (Negative) 07/27/17 22:46 Urine Ketones Negative mg/dL (Negative) 07/27/17 22:46 Urine Blood Trace (Negative) 07/27/17 22:46 Urine Nitrite Negative (Negative) 07/27/17 22:46 Ur Reducing Substances Not Reportable 07/27/17 22:46 Urine Bilirubin Negative (Negative) 07/27/17 22:46 Urine Ictotest Not Reportable 07/27/17 22:46 Urine Urobilinogen < 2.0 mg/dL (<2.0) 07/27/17 22:46 Ur Leukocyte Esterase Trace (Negative) 07/27/17 22:46 Urine WBC (Auto) 6.0 /HPF (0.0-6.0) 07/27/17 22:46 Urine RBC (Auto) 9.0 /HPF (0.0-6.0) 07/27/17 22:46 U Epithel Cells (Auto) < 1.0 /HPF (0-13.0) 07/27/17 22:46 Urine Bacteria (Auto) 1+ /HPF (Negative) 07/27/17 22:46 Urine Mucus Few /HPF 07/27/17 22:46 Urine Opiates Screen Presumptive negative 07/27/17 22:46 Urine Methadone Screen Presumptive negative 07/27/17 22:46 Ur Barbiturates Screen Presumptive negative 07/27/17 22:46 Ur Phencyclidine Scrn Presumptive negative 07/27/17 22:46 Ur Amphetamines Screen Presumptive negative 07/27/17 22:46 U Benzodiazepines Scrn Presumptive negative 07/27/17 22:46 Urine Cocaine Screen Presumptive negative 07/27/17 22:46 U Marijuana (THC) Screen Presumptive negative 07/27/17 22:46 Drugs of Abuse Note Disclamer 07/27/17 22:46 Blood Type A POSITIVE 07/27/17 18:24 Antibody Screen Negative 07/27/17 18:24
[2017-07-28] MEDS ORDERED: cefTRIAXone 1 GM in NACL 0.9% 20 ML IV SCH (10:00)
[2017-07-28] MEDS ORDERED: LOVENOX SUB-Q SCH (10:00)
--- NOTE | 2017-07-28 11:40 | Consultation ---
History of Present Illness Consult date: 07/28/17 Consult reason: cardiac arrest History of present illness: 71yr old male who is admitted with out of the hospital cardiac arrest. Reported VF in the field requiring defibrillation multiple times. Post rescusitation ECG : ventricular escape rhythm. Patient is currently intubated on mechanical ventilation and on multiple pressors. Medications and Allergies Allergies Allergy/AdvReac Type Severity Reaction Status Date / Time acetaminophen [From Vicodin] Allergy Unknown Verified 07/27/17 18:13 hydrocodone [From Vicodin] Allergy Unknown Verified 07/27/17 18:13 zolpidem [From Ambien] Allergy Unknown Verified 07/27/17 18:13 Active Meds: Active Medications Albuterol (Proventil) 2.5 mg IH Q3HRT PRN PRN Reason: Shortness Of Breath Famotidine (Pepcid) 20 mg IV DAILY DANIEL Hydrophilic Ointment (Vaseline Lip Therapy) 1 applic TP Q2HR PRN PRN Reason: Dry Lips Vasopressin 20 unit/ Sodium (Chloride) 101 mls @ 9.09 mls/hr IV TITR DANIEL; 0.03 UNITS/MIN PRN Reason: Protocol Last Admin: 07/28/17 03:44 Dose: 0.03 units/min, 9.09 mls/hr Norepinephrine (Levophed Drip 4 Mg/Ns 250 Ml) 4 mg in 250 mls @ 7.5 mls/hr IV TITR DANIEL; 2 MCG/MIN PRN Reason: Protocol Influenza Virus Vaccine Quadrival (Fluarix Quad [id number](36 Mos+) 0.5 ml IM .ONCE ONE Stop: 07/28/17 12:01 Multi-Ingred Cream/Lotion/Oil/Oint (Artificial Tears Ophth Oint) 1 applic OU Q4HR PRN PRN Reason: Dry Eye(s) Ondansetron HCl (Zofran) 4 mg IV Q8H PRN PRN Reason: N/V unrelieved by Reglan Pneumococcal Polyvalent Vaccine (Pneumovax 23) 0.5 ml IM .ONCE ONE Stop: 07/28/17 12:01 Sodium Chloride (Nacl 0.9% 500 Ml) 1 ml IV DIRECT DANIEL Physical Examination Vital Signs Pulse Resp 28 L 12 07/27/17 18:02 07/27/17 18:02 General appearance: other (intubated on the vent) Cardiac: Positive: Reg Rate and Rhythm Results 12/21/17 06:30 07/28/17 05:44 Cardiac Enzymes 07/27/17 07/27/17 07/27/17 Range/Units 18:26 21:43 22:47 CK-MB (CK-2) 3.9 4.8 H 9.4 H (0.0-4.0) ng/mL 07/28/17 Range/Units 05:44 CK-MB (CK-2) 10.8 H (0.0-4.0) ng/mL Coagulation 07/27/17 Range/Units 18:26 PT 15.6 H (12.2-14.9) Sec. INR 1.18 H (0.87-1.13) APTT 38.5 H (24.2-36.6) Sec. Lipids 07/27/17 Range/Units 18:26 Triglycerides 190 H (2-149) mg/dL Cholesterol 93 (50-199) mg/dL HDL Cholesterol 21 L (40-59) mg/dL Cholesterol/HDL Ratio 4.42 % CBC 07/27/17 07/28/17 Range/Units 18:26 06:30 WBC 15.6 H 16.9 H (4.5-11.0) K/mm3 RBC 4.64 4.79 (3.65-5.03) M/mm3 Hgb 13.1 13.3 (11.8-15.2) gm/dl Hct 41.5 42.8 (35.5-45.6) % Plt Count 115 L 141 (140-440) K/mm3 Lymph # 1.4 (1.2-5.4) K/mm3 [place] # 1.3 H (0.0-0.8) K/mm3 Eos # 0.0 (0.0-0.4) K/mm3 Baso # 0.0 (0.0-0.1) K/mm3 Comprehensive Metabolic Panel 07/27/17 07/28/17 Range/Units 18:26 05:44 Sodium 143 146 H (137-145) mmol/L Potassium 4.2 5.1 H D (3.6-5.0) mmol/L Chloride 103.6 113.3 H (98-107) mmol/L Carbon Dioxide 21 L 18 L (22-30) mmol/L BUN 19 29 H (9-20) mg/dL Creatinine 1.3 2.0 H D (0.8-1.5) mg/dL Glucose 252 H 194 H (75-100) mg/dL Calcium 7.7 L 6.8 L (8.4-10.2) mg/dL Assessment and Plan Out of the hospital Cardiac arrest Acute respiratory failure on mechanical ventilation Acute renal failure Lactic acidosis Hx of CAD with CABG Hx of Ischemic CMP Recommendations: Amiodarone drip for VF. Echocardiogram for LVEF assessment. Patient is considered not suitable for further ischemic evaluation at this time given hemodynamic instability and prolonged downtime. Continue supportive care.
--- NOTE | 2017-07-28 11:54 | Consultation ---
History of Present Illness Consult date: 07/28/17 Requesting physician: KRANTHI RODRIGUEZ Reason for consult: other (cardiac arrest and acute respiratory failure) History of present illness: 71 y/o male with out of hospital cardiac arrest. CPR started at home and continued here in the ED for at least 40 minutes. Currently on 2 pressors. Started on sedation for "jerks", but I have discontinued those this morning. at bedside. States patient was down at home for at least 10-12 minutes prior to EMS arrival. Patient with extensive cardiac history. Past History Past Medical History: CAD Medications and Allergies Allergies Allergy/AdvReac Type Severity Reaction Status Date / Time acetaminophen [From Vicodin] Allergy Unknown Verified 07/27/17 18:13 hydrocodone [From Vicodin] Allergy Unknown Verified 07/27/17 18:13 zolpidem [From Ambien] Allergy Unknown Verified 07/27/17 18:13 Active Meds: Active Medications Albuterol (Proventil) 2.5 mg IH Q3HRT PRN PRN Reason: Shortness Of Breath Famotidine (Pepcid) 20 mg IV DAILY DANIEL Hydrophilic Ointment (Vaseline Lip Therapy) 1 applic TP Q2HR PRN PRN Reason: Dry Lips Vasopressin 20 unit/ Sodium (Chloride) 101 mls @ 9.09 mls/hr IV TITR DANIEL; 0.03 UNITS/MIN PRN Reason: Protocol Last Admin: 07/28/17 03:44 Dose: 0.03 units/min, 9.09 mls/hr Norepinephrine (Levophed Drip 4 Mg/Ns 250 Ml) 4 mg in 250 mls @ 7.5 mls/hr IV TITR DANIEL; 2 MCG/MIN PRN Reason: Protocol Influenza Virus Vaccine Quadrival (Fluarix Quad [id number](36 Mos+) 0.5 ml IM .ONCE ONE Stop: 07/28/17 12:01 Multi-Ingred Cream/Lotion/Oil/Oint (Artificial Tears Ophth Oint) 1 applic OU Q4HR PRN PRN Reason: Dry Eye(s) Ondansetron HCl (Zofran) 4 mg IV Q8H PRN PRN Reason: N/V unrelieved by Reglan Pneumococcal Polyvalent Vaccine (Pneumovax 23) 0.5 ml IM .ONCE ONE Stop: 07/28/17 12:01 Sodium Chloride (Nacl 0.9% 500 Ml) 1 ml IV DIRECT DANIEL Review of Systems ROS unobtainable: due to endotracheal tube, due to mental status Physical Examination Vital signs: Vital Signs Pulse Resp 28 L 12 07/27/17 18:02 07/27/17 18:02 General appearance: comatose Eyes: non-icteric ENT: other (orally intubated and sedated) Neck: supple Effort: normal Ascultation: Bilateral: clear Percussion: Bilateral: not dull Cardiovascular: regular rate and rhythm Gastrointestinal: hypoactive bowel sounds Extremities: no edema Results - Laboratory Findings CBC and BMP: 07/28/17 06:30 07/28/17 05:44 ABG POC ABG pH 7.268 (7.35-7.45) L 07/28/17 05:29 POC ABG pCO2 34.8 (35-45) L 07/28/17 05:29 POC ABG pO2 99 (80-105) 07/28/17 05:29 POC ABG HCO3 15.9 07/28/17 05:29 POC ABG Total CO2 17 07/28/17 05:29 POC ABG O2 Sat 97 07/28/17 05:29 PT/INR, D-dimer PT 15.6 Sec. (12.2-14.9) H 07/27/17 18:26 INR 1.18 (0.87-1.13) H 07/27/17 18:26 Abnormal lab findings: Abnormal Labs 07/27/17 07/27/17 07/27/17 18:26 18:26 18:26 WBC 15.6 H MCHC Plt Count 115 L Lymph % (Auto) [place] % (Auto) [place] # Seg Neutrophils % Lymphocytes % (Manual) 36.0 H Seg Neutrophils # Seg Neutrophils # Man 8.9 H Lymphocytes # (Manual) 5.6 H Monocytes # (Manual) 1.1 H PT 15.6 H INR 1.18 H APTT 38.5 H POC ABG pH POC ABG pCO2 POC ABG pO2 Sodium Potassium Chloride Carbon Dioxide 21 L BUN Creatinine Glucose 252 H POC Glucose Lactic Acid Calcium 7.7 L Total Creatine Kinase CK-MB (CK-2) CK-MB (CK-2) Rel Index Troponin T 0.090 H Triglycerides 190 H LDL Cholesterol Direct 34 L HDL Cholesterol 21 L 07/27/17 07/27/17 07/27/17 19:02 19:25 21:43 WBC MCHC Plt Count Lymph % (Auto) [place] % (Auto) [place] # Seg Neutrophils % Lymphocytes % (Manual) Seg Neutrophils # Seg Neutrophils # Man Lymphocytes # (Manual) Monocytes # (Manual) PT INR APTT POC ABG pH 7.155 L POC ABG pCO2 47.7 H POC ABG pO2 229 H Sodium Potassium Chloride Carbon Dioxide BUN Creatinine Glucose POC Glucose Lactic Acid 6.00 H* Calcium Total Creatine Kinase CK-MB (CK-2) 4.8 H CK-MB (CK-2) Rel Index Troponin T 0.149 H* D Triglycerides LDL Cholesterol Direct HDL Cholesterol 07/27/17 07/27/17 07/28/17 22:47 22:47 01:47 WBC MCHC Plt Count Lymph % (Auto) [place] % (Auto) [place] # Seg Neutrophils % Lymphocytes % (Manual) Seg Neutrophils # Seg Neutrophils # Man Lymphocytes # (Manual) Monocytes # (Manual) PT INR APTT POC ABG pH POC ABG pCO2 POC ABG pO2 Sodium Potassium Chloride Carbon Dioxide BUN Creatinine Glucose POC Glucose 199 H Lactic Acid 2.40 H* Calcium Total Creatine Kinase 222 H CK-MB (CK-2) 9.4 H CK-MB (CK-2) Rel Index 4.2 H Troponin T 0.852 H* D Triglycerides LDL Cholesterol Direct HDL Cholesterol 07/28/17 07/28/17 07/28/17 05:29 05:44 05:44 WBC MCHC Plt Count Lymph % (Auto) [place] % (Auto) [place] # Seg Neutrophils % Lymphocytes % (Manual) Seg Neutrophils # Seg Neutrophils # Man Lymphocytes # (Manual) Monocytes # (Manual) PT INR APTT POC ABG pH 7.268 L POC ABG pCO2 34.8 L POC ABG pO2 Sodium 146 H Potassium 5.1 H D Chloride 113.3 H Carbon Dioxide 18 L BUN 29 H Creatinine 2.0 H D Glucose 194 H POC Glucose Lactic Acid 2.10 H* Calcium 6.8 L Total Creatine Kinase CK-MB (CK-2) CK-MB (CK-2) Rel Index Troponin T Triglycerides LDL Cholesterol Direct HDL Cholesterol 07/28/17 07/28/17 05:44 06:30 WBC 16.9 H MCHC 31 L Plt Count Lymph % (Auto) 8.4 L [place] % (Auto) 7.5 H [place] # 1.3 H Seg Neutrophils % 84.1 H Lymphocytes % (Manual) Seg Neutrophils # 14.2 H Seg Neutrophils # Man Lymphocytes # (Manual) Monocytes # (Manual) PT INR APTT POC ABG pH POC ABG pCO2 POC ABG pO2 Sodium Potassium Chloride Carbon Dioxide BUN Creatinine Glucose POC Glucose Lactic Acid Calcium Total Creatine Kinase 434 H CK-MB (CK-2) 10.8 H CK-MB (CK-2) Rel Index Troponin T 0.521 H* D Triglycerides LDL Cholesterol Direct HDL Cholesterol - Diagnostic Findings Chest x-ray: image reviewed (cardiomegaly, post-CABG with some pulmonary vascular congestion) Assessment and Plan 71 y/o male with out of hospital cardiac arrest (Vfib/Vtach), with acute renal failure, and metabolic acidosis. 1. Continue vent support, wean FiO2 for sats >88% 2. Discontinue sedation to evaluate neurologic status 3. Agree with renal consult for renal failure 4. Follow up any cardiology recs, if any 5. Long discussion with at bedside. Given prolonged downtime and lack of blood flow to major organs, overall prognosis here is poor. He was started on sedation so I cannot accurately assess his mental state at this time. The understands how sick her (the patient) is but wishes to continue full code status at this time. CCT 31 minutes.
[2017-07-28] MEDS ORDERED: Fluarix Quad 2017-2018(36 MOS+ IM ONE (12:00)
[2017-07-28] MEDS ORDERED: PNEUMOVAX 23 IM ONE (12:00)
--- NOTE | 2017-07-28 13:54 | Consultation ---
History of Present Illness - Reason for Consult Consult date: 07/28/17 acute renal failure Requesting physician: KRANTHI RODRIGUEZ - History of Present Illness 71 year old man with history of CAD, CHF was brought to the emerghency room after he had a cardiac arrest at home. Spouse at bedside states that he had a cough productive of yellow phlegm, fever 3 days. According to her he had pneumonia for which he was being treated with oral antibiotics. Yesterday he was healthy and his family at home to put away packages, he became short of breath and 5 minutes later, the family went to check on him, he was not breathing, they started CPR. EMS was called, CPR was continued for another 40 minutes prior to arrival in the emergency room, he had a V. fib or V. tach rhythm for which he was shocked per EMS. CPR was continued in the emergency room, he was hypotensive and placed on levothyroid and vasopressin. He is currently in the intensive care unit. On the ventilator. Unresponsive. He does have a history of nonsteroidal intake at home. His serum creatinine was 1.0 and admission. It has gone up to 2.0 today and therefore does consultation. Past History Past Medical History: CAD Social history: no significant social history (denies smoking or drinking) Family history: no significant family history (negative for kidney disease) Medications and Allergies Allergies Allergy/AdvReac Type Severity Reaction Status Date / Time acetaminophen [From Vicodin] Allergy Unknown Verified 07/27/17 18:13 hydrocodone [From Vicodin] Allergy Unknown Verified 07/27/17 18:13 zolpidem [From Ambien] Allergy Unknown Verified 07/27/17 18:13 Active Meds: Active Medications Albuterol (Proventil) 2.5 mg IH Q3HRT PRN PRN Reason: Shortness Of Breath Famotidine (Pepcid) 20 mg IV DAILY DANIEL Hydrophilic Ointment (Vaseline Lip Therapy) 1 applic TP Q2HR PRN PRN Reason: Dry Lips Vasopressin 20 unit/ Sodium (Chloride) 101 mls @ 9.09 mls/hr IV TITR DANIEL; 0.03 UNITS/MIN PRN Reason: Protocol Last Admin: 07/28/17 03:44 Dose: 0.03 units/min, 9.09 mls/hr Norepinephrine (Levophed Drip 4 Mg/Ns 250 Ml) 4 mg in 250 mls @ 7.5 mls/hr IV TITR DANIEL; 2 MCG/MIN PRN Reason: Protocol Sodium Chloride (Nacl 0.9% 1000 Ml) 1,000 mls @ 125 mls/hr IV DIRECT DANIEL Multi-Ingred Cream/Lotion/Oil/Oint (Artificial Tears Ophth Oint) 1 applic OU Q4HR PRN PRN Reason: Dry Eye(s) Ondansetron HCl (Zofran) 4 mg IV Q8H PRN PRN Reason: N/V unrelieved by Reglan Sodium Chloride (Nacl 0.9% 500 Ml) 1 ml IV DIRECT DANIEL Review of Systems All systems: negative (negative except as noted above. Obtain from patient's at bedside.) Exam - Vital Signs Vital signs: Vital Signs Pulse Resp 28 L 12 07/27/17 18:02 07/27/17 18:02 - General Appearance General appearance: well-developed, well-nourished, appears stated age, intubated EENT: PERRL, mucous membranes moist Neck: Present: neck supple, trachea midline. Absent: JVD/HJR, Masses Respiratory: Clear to Ascultation Heart: regular, normal heart rate, S1S2, no murmurs Gastrointestinal: Present: normal, normoactive bowel sounds Integumentary: no rash, other (no edema) Results - Lab Results 07/28/17 06:30 07/28/17 05:44 Most recent lab results Calcium 6.8 mg/dL (8.4-10.2) L 07/28/17 05:44 Assessment and Plan Impression * Acute renal failure * Status post cardiac arrest * History of coronary artery disease * Hypertension * Mild metabolic acidosis * Hypotension Recommendations * Patient most likely has progressed to ATN. His urine specific gravity however noted to be elevated. He may have a prerenal component as well. * Shall check a fractional excretion of sodium * Shall do vasculitis workup as well to rule out glomerular disease. He does have 1+ dipstick protein in his urine * Shall add isotonic IV fluid * His acidosis is most likely secondary to lactic acidosis * Renal ultrasound to assess kidney size and echogenicity * He has put out approximately 250 mL of urine overnight. * Monitor fluid status and electrolytes closely. No urgent indication for renal replacement therapy at this time * Discussed possibility of dialysis with patient's and brother at bedside, if renal function fails to improve * Avoid nephrotoxins * Adjust meds for GFR less than 10 * Thank you very much for the consultation. Shall follow along with you
[2017-07-28] MEDS: PEPCID IV SCH (13:58)
[2017-07-28] MEDS: NACL 0.9% 1000 ML 1,000 ML IV SCH ×2 (14:44→22:42)
[2017-07-28] MEDS: CORDARONE 900 MG in D5W 482 ML IV SCH (15:47)
[2017-07-28 16:56] LABS: Amorphous Crystals,Urine Few; Bilirubin,Urine NEG (Negative); Blood,Urine MOD (Negative); Color,Urine Yellow (Yellow); Mucus,Urine FEW /HPF; Nitrite,Urine NEG (Negative); Urobilinogen,Urine < 2.0 mg/dL (<2.0)
[2017-07-28 17:18] LABS: Creatinine,Urine 58.4 mg/dL (0.1-20.0)
[2017-07-28 17:33] LABS: Hepatitis A Antibody IgM Non-Reactive (NonReactive); Hepatitis B Core IgM Non-Reactive (NonReactive); Hepatitis B Surface Antigen Non-Reactive (Negative); Hepatitis C Virus Antibody Non-Reactive (NonReactive)
[2017-07-28 17:34] LABS: Fractional Sodium Excretion 2.6
[2017-07-29] MEDS: Vasostrict 20 UNIT in NACL 0.9% 100 ML IV SCH ×3 (00:35→23:15)
--- NOTE | 2017-07-29 02:44 | XRay Report ---
FINAL REPORT EXAM: XR CHEST 1V AP HISTORY: follow up respiratory failure TECHNIQUE: A portable upright view of the chest was obtained and compared to the study of 07/28/2017. FINDINGS: There are sternotomy sutures. Heart remains moderately enlarged. There is very mild vascular congestion. There are no localized infiltrates. There is stable elevation of the left hemidiaphragm. The ET tube and NG tube appear in good position. The bones and soft tissues are unchanged. IMPRESSION: Cardiomegaly with stable mild congestion. Chronic elevation of left hemidiaphragm. No localized infiltrates since the previous study
--- NOTE | 2017-07-29 05:05 | Progress Note ---
Assessment and Plan 71 y/o male with out of hospital cardiac arrest (Vfib/Vtach), with acute renal failure, and metabolic acidosis. 1. Continue vent support, wean FiO2 for sats >88% 2. Discontinue sedation to evaluate neurologic status. Off now since yesterday morning. Still not awake. Continue no sedation for now. 3. Reviewed renal note. Follow up renal suggestions and work up. 4. Currently on amio drip, will continue 5. Remains on Vasopressin, wean for MAP >65 6. Follow up echo, done but not resulted 7. Follow up AM labs 8. Long discussion with at bedside. Given prolonged downtime and lack of blood flow to major organs, overall prognosis here is poor. He was started on sedation so I cannot accurately assess his mental state at this time. The understands how sick her (the patient) is but wishes to continue full code status at this time. CCT 31 minutes. Subjective Date of service: 07/29/17 Interval history: Called by Nursing this am for fever of 102.6. Patient was last cultured on . Tylenol order given. Family asleep in the closet in room. Patient currently on amio. Levophed is off. sedation is off. Objective Vital Signs - 12hr 07/28/17 07/28/17 07/28/17 17:10 17:20 17:30 Temperature Pulse Rate 69 69 68 Respiratory 16 16 16 Rate Blood Pressure 113/71 119/72 120/72 O2 Sat by Pulse 99 99 98 Oximetry 07/28/17 07/28/17 07/28/17 17:40 17:50 18:00 Temperature Pulse Rate 70 69 72 Respiratory 16 16 16 Rate Blood Pressure 120/72 116/69 117/68 O2 Sat by Pulse 98 98 99 Oximetry 07/28/17 07/28/17 07/28/17 18:10 18:20 18:30 Temperature Pulse Rate 75 71 72 Respiratory 17 16 16 Rate Blood Pressure 117/68 117/69 124/70 O2 Sat by Pulse 99 98 97 Oximetry 07/28/17 07/28/17 07/28/17 18:40 18:50 19:00 Temperature Pulse Rate 72 69 72 Respiratory 16 16 16 Rate Blood Pressure 124/70 116/71 115/69 O2 Sat by Pulse 97 97 98 Oximetry 07/28/17 07/28/17 07/28/17 19:10 19:20 19:30 Temperature Pulse Rate 71 71 73 Respiratory 16 16 16 Rate Blood Pressure 115/69 115/68 112/69 O2 Sat by Pulse 98 97 97 Oximetry 07/28/17 07/28/17 07/28/17 19:40 19:50 19:52 Temperature Pulse Rate 73 71 67 Respiratory 15 14 Rate Blood Pressure 112/69 111/69 111/69 O2 Sat by Pulse 97 97 98 Oximetry 07/28/17 07/28/17 07/28/17 20:00 20:10 20:20 Temperature 98.9 F Pulse Rate 73 74 73 Respiratory 15 17 16 Rate Blood Pressure 115/79 115/79 126/68 O2 Sat by Pulse 97 98 98 Oximetry 07/28/17 07/28/17 07/28/17 20:30 20:40 20:50 Temperature Pulse Rate 74 76 79 Respiratory 16 18 19 Rate Blood Pressure 113/72 113/72 128/84 O2 Sat by Pulse 98 97 97 Oximetry 07/28/17 07/28/17 07/28/17 21:00 21:10 21:20 Temperature Pulse Rate 89 73 79 Respiratory 18 17 16 Rate Blood Pressure 126/78 126/78 128/76 O2 Sat by Pulse 97 97 98 Oximetry 07/28/17 07/28/17 07/28/17 21:30 21:40 21:50 Temperature Pulse Rate 78 77 79 Respiratory 17 17 17 Rate Blood Pressure 119/78 119/78 126/71 O2 Sat by Pulse 97 97 97 Oximetry 07/28/17 07/28/17 07/28/17 22:00 22:10 22:20 Temperature Pulse Rate 77 78 75 Respiratory 17 17 18 Rate Blood Pressure 124/77 128/76 115/73 O2 Sat by Pulse 97 97 97 Oximetry 07/28/17 07/28/17 07/28/17 22:30 22:40 22:50 Temperature Pulse Rate 71 71 71 Respiratory 16 17 17 Rate Blood Pressure 112/73 112/73 119/70 O2 Sat by Pulse 98 98 97 Oximetry 07/28/17 07/28/17 07/28/17 23:00 23:10 23:20 Temperature Pulse Rate 74 70 71 Respiratory 17 19 17 Rate Blood Pressure 115/70 115/70 106/73 O2 Sat by Pulse 97 97 97 Oximetry 07/28/17 07/28/17 07/28/17 23:30 23:40 23:44 Temperature Pulse Rate 74 75 76 Respiratory 21 19 18 Rate Blood Pressure 109/76 109/76 109/76 O2 Sat by Pulse 97 97 97 Oximetry 07/28/17 07/28/17 07/29/17 23:45 23:50 00:00 Temperature 99.8 F H Pulse Rate 76 75 74 Respiratory 19 19 Rate Blood Pressure 109/76 110/74 121/74 O2 Sat by Pulse 97 97 98 Oximetry 07/29/17 07/29/17 07/29/17 00:10 00:20 00:30 Temperature Pulse Rate 75 75 75 Respiratory 19 19 18 Rate Blood Pressure 121/74 126/79 125/77 O2 Sat by Pulse 97 97 97 Oximetry 07/29/17 07/29/17 07/29/17 00:40 00:50 01:00 Temperature Pulse Rate 74 74 75 Respiratory 19 18 20 Rate Blood Pressure 126/79 122/77 114/71 O2 Sat by Pulse 97 97 97 Oximetry 07/29/17 07/29/17 07/29/17 01:10 01:20 01:30 Temperature Pulse Rate 74 74 74 Respiratory 19 19 19 Rate Blood Pressure 114/71 120/77 125/76 O2 Sat by Pulse 97 96 97 Oximetry 07/29/17 07/29/17 07/29/17 01:40 01:50 02:00 Temperature Pulse Rate 74 73 73 Respiratory 19 17 20 Rate Blood Pressure 125/76 119/77 127/78 O2 Sat by Pulse 96 97 97 Oximetry 07/29/17 07/29/17 07/29/17 02:10 02:20 02:30 Temperature Pulse Rate 76 75 78 Respiratory 24 21 17 Rate Blood Pressure 127/78 130/77 134/78 O2 Sat by Pulse 96 96 97 Oximetry 07/29/17 07/29/17 07/29/17 02:40 02:50 03:00 Temperature Pulse Rate 77 82 77 Respiratory 21 18 19 Rate Blood Pressure 130/77 146/90 136/74 O2 Sat by Pulse 97 95 97 Oximetry 07/29/17 07/29/17 07/29/17 03:10 03:20 03:30 Temperature Pulse Rate 75 75 74 Respiratory 18 18 18 Rate Blood Pressure 136/74 122/71 120/71 O2 Sat by Pulse 97 97 97 Oximetry 07/29/17 07/29/17 07/29/17 03:40 03:50 04:00 Temperature 102.6 F H Pulse Rate 75 76 Respiratory 18 18 18 Rate Blood Pressure 122/71 117/69 117/69 O2 Sat by Pulse 96 96 96 Oximetry Constitutional: comatose Eyes: non-icteric ENT: other (orally intubated and sedated) Neck: supple Effort: normal Ascultation: Bilateral: clear Percussion: Bilateral: not dull Cardiovascular: regular rate and rhythm Gastrointestinal: hypoactive bowel sounds Extremities: no edema CBC and BMP: 07/28/17 06:30 07/28/17 16:00 ABG, PT/INR, D-dimer: ABG POC ABG pH 7.304 (7.35-7.45) L 07/29/17 04:02 POC ABG pCO2 31.6 (35-45) L 07/29/17 04:02 POC ABG pO2 96 (80-105) 07/29/17 04:02 POC ABG HCO3 15.7 07/29/17 04:02 POC ABG Total CO2 17 07/29/17 04:02 POC ABG O2 Sat 97 07/29/17 04:02 PT/INR, D-dimer PT 15.6 Sec. (12.2-14.9) H 07/27/17 18:26 INR 1.18 (0.87-1.13) H 07/27/17 18:26 Abnormal lab findings: Abnormal Labs 07/27/17 07/27/17 07/27/17 18:26 18:26 18:26 WBC 15.6 H MCHC Plt Count 115 L Lymph % (Auto) [place] % (Auto) [place] # Seg Neutrophils % Lymphocytes % (Manual) 36.0 H Seg Neutrophils # Seg Neutrophils # Man 8.9 H Lymphocytes # (Manual) 5.6 H Monocytes # (Manual) 1.1 H PT 15.6 H INR 1.18 H APTT 38.5 H POC ABG pH POC ABG pCO2 POC ABG pO2 Sodium Potassium Chloride Carbon Dioxide 21 L BUN Creatinine Glucose 252 H POC Glucose Lactic Acid Calcium 7.7 L Total Creatine Kinase CK-MB (CK-2) CK-MB (CK-2) Rel Index Troponin T 0.090 H Triglycerides 190 H LDL Cholesterol Direct 34 L HDL Cholesterol 21 L Urine WBC (Auto) Urine Creatinine 07/27/17 07/27/17 07/27/17 19:02 19:25 21:43 WBC MCHC Plt Count Lymph % (Auto) [place] % (Auto) [place] # Seg Neutrophils % Lymphocytes % (Manual) Seg Neutrophils # Seg Neutrophils # Man Lymphocytes # (Manual) Monocytes # (Manual) PT INR APTT POC ABG pH 7.155 L POC ABG pCO2 47.7 H POC ABG pO2 229 H Sodium Potassium Chloride Carbon Dioxide BUN Creatinine Glucose POC Glucose Lactic Acid 6.00 H* Calcium Total Creatine Kinase CK-MB (CK-2) 4.8 H CK-MB (CK-2) Rel Index Troponin T 0.149 H* D Triglycerides LDL Cholesterol Direct HDL Cholesterol Urine WBC (Auto) Urine Creatinine 07/27/17 07/27/17 07/28/17 22:47 22:47 01:47 WBC MCHC Plt Count Lymph % (Auto) [place] % (Auto) [place] # Seg Neutrophils % Lymphocytes % (Manual) Seg Neutrophils # Seg Neutrophils # Man Lymphocytes # (Manual) Monocytes # (Manual) PT INR APTT POC ABG pH POC ABG pCO2 POC ABG pO2 Sodium Potassium Chloride Carbon Dioxide BUN Creatinine Glucose POC Glucose 199 H Lactic Acid 2.40 H* Calcium Total Creatine Kinase 222 H CK-MB (CK-2) 9.4 H CK-MB (CK-2) Rel Index 4.2 H Troponin T 0.852 H* D Triglycerides LDL Cholesterol Direct HDL Cholesterol Urine WBC (Auto) Urine Creatinine 07/28/17 07/28/17 07/28/17 05:29 05:44 05:44 WBC MCHC Plt Count Lymph % (Auto) [place] % (Auto) [place] # Seg Neutrophils % Lymphocytes % (Manual) Seg Neutrophils # Seg Neutrophils # Man Lymphocytes # (Manual) Monocytes # (Manual) PT INR APTT POC ABG pH 7.268 L POC ABG pCO2 34.8 L POC ABG pO2 Sodium 146 H Potassium 5.1 H D Chloride 113.3 H Carbon Dioxide 18 L BUN 29 H Creatinine 2.0 H D Glucose 194 H POC Glucose Lactic Acid 2.10 H* Calcium 6.8 L Total Creatine Kinase CK-MB (CK-2) CK-MB (CK-2) Rel Index Troponin T Triglycerides LDL Cholesterol Direct HDL Cholesterol Urine WBC (Auto) Urine Creatinine 07/28/17 07/28/17 07/28/17 05:44 06:30 16:00 WBC 16.9 H MCHC 31 L Plt Count Lymph % (Auto) 8.4 L [place] % (Auto) 7.5 H Rankin # 1.3 H Seg Neutrophils % 84.1 H Lymphocytes % (Manual) Seg Neutrophils # 14.2 H Seg Neutrophils # Man Lymphocytes # (Manual) Monocytes # (Manual) PT INR APTT POC ABG pH POC ABG pCO2 POC ABG pO2 Sodium 146 H Potassium Chloride Carbon Dioxide BUN Creatinine 2.4 H Glucose POC Glucose Lactic Acid Calcium Total Creatine Kinase 434 H CK-MB (CK-2) 10.8 H CK-MB (CK-2) Rel Index Troponin T 0.521 H* D Triglycerides LDL Cholesterol Direct HDL Cholesterol Urine WBC (Auto) Urine Creatinine 07/28/17 07/28/17 07/29/17 16:20 16:20 04:02 WBC MCHC Plt Count Lymph % (Auto) [place] % (Auto) [place] # Seg Neutrophils % Lymphocytes % (Manual) Seg Neutrophils # Seg Neutrophils # Man Lymphocytes # (Manual) Monocytes # (Manual) PT INR APTT POC ABG pH 7.304 L POC ABG pCO2 31.6 L POC ABG pO2 Sodium Potassium Chloride Carbon Dioxide BUN Creatinine Glucose POC Glucose Lactic Acid Calcium Total Creatine Kinase CK-MB (CK-2) CK-MB (CK-2) Rel Index Troponin T Triglycerides LDL Cholesterol Direct HDL Cholesterol Urine WBC (Auto) 12.0 H Urine Creatinine 58.4 H
[2017-07-29] MEDS: NACL 0.9% 1000 ML 1,000 ML IV SCH ×3 (06:12→23:15)
[2017-07-29 06:43] LABS: Hematocrit 38.1 % (35.5-45.6); Hemoglobin 12.3 gm/dl (11.8-15.2); Mean Corpuscular HGB Conc 32 % (32-34); Mean Corpuscular Hemoglobin 29 pg (28-32); Mean Corpuscular Volume 89 fl (84-94); Platelet Count 125 K/mm3 (140-440); Red Blood Count 4.27 M/mm3 (3.65-5.03); Red Cell Distribution Width 14.3 % (13.2-15.2)
[2017-07-29 08:41] LABS: Calcium 6.9 mg/dL (8.4-10.2)
--- NOTE | 2017-07-29 08:46 | Progress Note ---
Assessment and Plan Assessment and plan: Cardio-resp arrest at home. Admitted to ICU. He is intubated, on vent. Pulmonology was consulted and he was evaluated. As per ED Physician notes, downtime about 40 mins, no pulse for about 40 mins. He had ventricular fib/v tach rhythm, was shocked, given Amiodarone,intubated by paramedics before before brought to ED. CPR continued in ED before he regained pulse. Cardiology and Pulmonology following. Cardiology states he is not a candidate for further ischemic evaluation because of current poor condition, co-morbidities. Shock. Cardiogenic +/- septic shock. He is now on Vasopressin only, was on 2 pressors-Levophed and Vasopressin yesterday. Titrate to keep MAP > 65 Acute kidney Injury due to acute tubular necrosis. Creatinine increased to 2.1 today, was 1.3 on admission. Nephrology following Elevated Troponin. To r/o NSTEMI CAD s/p CABG. cardiology consulted. Ischemic cardiomyopathy Encephalopathy Full code status Discussed with at bedside. I informed her that prognosis is poor because of about 40mins downtime. I discussed code status and she wishes to continue full code. History Interval history: Patient had cardio-resp arrest at home, brought to ED by paramadics, Intubated, on vent, Unresponsive Hospitalist Physical - Physical exam Narrative exam: GEN APPEARANCE : Intubated,on ventilator HEENT: Normocephalic, atraumatic NECK : supple, no JVD LUNGS: Clear to auscultation bilaterally, no wheeze, HEART: S1 and S2 regular, no murmurs, rubs or gallop, ABD: Soft, non tender, non distended, normal bowel sounds EXT: No edema, no clubbing, no cyanosis NEURO: Unresponsive, intubated - Constitutional Vitals: Temp Pulse Resp BP Pulse Ox 98.0 F 66 17 103/64 97 07/29/17 07:32 07/29/17 08:08 07/29/17 07:21 07/29/17 08:08 07/29/17 08:08 General appearance: Present: other (intubated on the vent) Results - Labs CBC & Chem 7: 07/29/17 Unknown 07/29/17 05:00 Labs: Laboratory Last Values WBC 14.4 K/mm3 (4.5-11.0) H 07/29/17 Unknown RBC 4.27 M/mm3 (3.65-5.03) 07/29/17 Unknown Hgb 12.3 gm/dl (11.8-15.2) 07/29/17 Unknown Hct 38.1 % (35.5-45.6) 07/29/17 Unknown MCV 89 fl (84-94) 07/29/17 Unknown MCH 29 pg (28-32) 07/29/17 Unknown MCHC 32 % (32-34) 07/29/17 Unknown RDW 14.3 % (13.2-15.2) 07/29/17 Unknown Plt Count 125 K/mm3 (140-440) L 07/29/17 Unknown Lymph % (Auto) 8.4 % (13.4-35.0) L 07/28/17 06:30 [place] % (Auto) 7.5 % (0.0-7.3) H 07/28/17 06:30 Eos % (Auto) 0.0 % (0.0-4.3) 07/28/17 06:30 Baso % (Auto) 0.0 % (0.0-1.8) 07/28/17 06:30 Lymph # 1.4 K/mm3 (1.2-5.4) 07/28/17 06:30 [place] # 1.3 K/mm3 (0.0-0.8) H 07/28/17 06:30 Eos # 0.0 K/mm3 (0.0-0.4) 07/28/17 06:30 Baso # 0.0 K/mm3 (0.0-0.1) 07/28/17 06:30 Add Manual Diff Complete 07/27/17 18:26 Total Counted 100 07/27/17 18:26 Seg Neutrophils % 84.1 % (40.0-70.0) H 07/28/17 06:30 Seg Neuts % (Manual) 57.0 % (40.0-70.0) 07/27/17 18:26 Band Neutrophils % 0 % 07/27/17 18:26 Lymphocytes % (Manual) 36.0 % (13.4-35.0) H 07/27/17 18:26 Reactive Lymphs % (Man) 0 % 07/27/17 18:26 Monocytes % (Manual) 7.0 % (0.0-7.3) 07/27/17 18:26 Eosinophils % (Manual) 0 % (0.0-4.3) 07/27/17 18:26 Basophils % (Manual) 0 % (0.0-1.8) 07/27/17 18:26 Metamyelocytes % 0 % 07/27/17 18:26 Myelocytes % 0 % 07/27/17 18:26 Promyelocytes % 0 % 07/27/17 18:26 Blast Cells % 0 % 07/27/17 18:26 Nucleated RBC % Not Reportable 07/27/17 18:26 Seg Neutrophils # 14.2 K/mm3 (1.8-7.7) H 07/28/17 06:30 Seg Neutrophils # Man 8.9 K/mm3 (1.8-7.7) H 07/27/17 18:26 Band Neutrophils # 0.0 K/mm3 07/27/17 18:26 Lymphocytes # (Manual) 5.6 K/mm3 (1.2-5.4) H 07/27/17 18:26 Abs React Lymphs (Man) 0.0 K/mm3 07/27/17 18:26 Monocytes # (Manual) 1.1 K/mm3 (0.0-0.8) H 07/27/17 18:26 Eosinophils # (Manual) 0.0 K/mm3 (0.0-0.4) 07/27/17 18:26 Basophils # (Manual) 0.0 K/mm3 (0.0-0.1) 07/27/17 18:26 Metamyelocytes # 0.0 K/mm3 07/27/17 18:26 Myelocytes # 0.0 K/mm3 07/27/17 18:26 Promyelocytes # 0.0 K/mm3 07/27/17 18:26 Blast Cells # 0.0 K/mm3 07/27/17 18:26 WBC Morphology Not Reportable 07/27/17 18:26 Hypersegmented Neuts Not Reportable 07/27/17 18:26 Hyposegmented Neuts Not Reportable 07/27/17 18:26 Hypogranular Neuts Not Reportable 07/27/17 18:26 Smudge Cells Not Reportable 07/27/17 18:26 Toxic Granulation Not Reportable 07/27/17 18:26 Toxic Vacuolation Not Reportable 07/27/17 18:26 Dohle Bodies Not Reportable 07/27/17 18:26 Pelger-Huet Anomaly Not Reportable 07/27/17 18:26 [place] Rods Not Reportable 07/27/17 18:26 Platelet Estimate Consistent w auto 07/27/17 18:26 Clumped Platelets Not Reportable 07/27/17 18:26 Plt Clumps, EDTA Not Reportable 07/27/17 18:26 Large Platelets Not Reportable 07/27/17 18:26 Giant Platelets Not Reportable 07/27/17 18:26 Platelet Satelliting Not Reportable 07/27/17 18:26 Plt Morphology Comment Not Reportable 07/27/17 18:26 RBC Morphology Not Reportable 07/27/17 18:26 Dimorphic RBCs Not Reportable 07/27/17 18:26 Polychromasia Not Reportable 07/27/17 18:26 Hypochromasia Not Reportable 07/27/17 18:26 Poikilocytosis Not Reportable 07/27/17 18:26 Anisocytosis Rare 07/27/17 18:26 Microcytosis Not Reportable 07/27/17 18:26 Macrocytosis Not Reportable 07/27/17 18:26 Spherocytes Not Reportable 07/27/17 18:26 Pappenheimer Bodies Not Reportable 07/27/17 18:26 Sickle Cells Not Reportable 07/27/17 18:26 Target Cells Not Reportable 07/27/17 18:26 Tear Drop Cells Not Reportable 07/27/17 18:26 Ovalocytes Not Reportable 07/27/17 18:26 Helmet Cells Not Reportable 07/27/17 18:26 [place] Bodies Not Reportable 07/27/17 18:26 [place] Rings Not Reportable 07/27/17 18:26 [place] Cells Not Reportable 07/27/17 18:26 Bite Cells Not Reportable 07/27/17 18:26 Crenated Cell Not Reportable 07/27/17 18:26 Elliptocytes Not Reportable 07/27/17 18:26 Acanthocytes (Spur) Not Reportable 07/27/17 18:26 Rouleaux Not Reportable 07/27/17 18:26 Hemoglobin C Crystals Not Reportable 07/27/17 18:26 Schistocytes Not Reportable 07/27/17 18:26 Malaria parasites Not Reportable 07/27/17 18:26 [place] Bodies Not Reportable 07/27/17 18:26 Hem Pathologist Commnt No 07/27/17 18:26 PT 15.6 Sec. (12.2-14.9) H 07/27/17 18:26 INR 1.18 (0.87-1.13) H 07/27/17 18:26 APTT 38.5 Sec. (24.2-36.6) H 07/27/17 18:26 POC ABG pH 7.304 (7.35-7.45) L 07/29/17 04:02 POC ABG pCO2 31.6 (35-45) L 07/29/17 04:02 POC ABG pO2 96 (80-105) 07/29/17 04:02 POC ABG HCO3 15.7 07/29/17 04:02 POC ABG Total CO2 17 07/29/17 04:02 POC ABG O2 Sat 97 07/29/17 04:02 POC ABG Base Excess -11 07/29/17 04:02 FiO2 50 % 07/29/17 04:02 Sodium 145 mmol/L (137-145) 07/29/17 05:00 Potassium 4.8 mmol/L (3.6-5.0) 07/29/17 05:00 Chloride 111.7 mmol/L (98-107) H 07/29/17 05:00 Carbon Dioxide 18 mmol/L (22-30) L 07/29/17 05:00 Anion Gap 20 mmol/L 07/29/17 05:00 BUN 37 mg/dL (9-20) H 07/29/17 05:00 Creatinine 2.1 mg/dL (0.8-1.5) H 07/29/17 05:00 Estimated GFR 31 ml/min 07/29/17 05:00 BUN/Creatinine Ratio 18 % 07/29/17 05:00 Glucose 213 mg/dL (75-100) H 07/29/17 05:00 POC Glucose 199 (70-105) H 07/28/17 01:47 Lactic Acid 2.10 mmol/L (0.7-2.0) H* 07/28/17 05:44 Calcium 6.9 mg/dL (8.4-10.2) L 07/29/17 05:00 Total Creatine Kinase 434 units/L (55-170) H 07/28/17 05:44 CK-MB (CK-2) 10.8 ng/mL (0.0-4.0) H 07/28/17 05:44 CK-MB (CK-2) Rel Index 2.4 (0-4) 07/28/17 05:44 Troponin T 0.521 ng/mL (0.00-0.029) H* D 07/28/17 05:44 Triglycerides 190 mg/dL (2-149) H 07/27/17 18:26 Cholesterol 93 mg/dL (50-199) 07/27/17 18:26 LDL Cholesterol Direct 34 mg/dL (50-130) L 07/27/17 18:26 HDL Cholesterol 21 mg/dL (40-59) L 07/27/17 18:26 Cholesterol/HDL Ratio 4.42 % 07/27/17 18:26 Urine Color Yellow (Yellow) 07/28/17 16:20 Urine Turbidity Clear (Clear) 07/28/17 16:20 Urine pH 5.0 (5.0-7.0) 07/28/17 16:20 Ur Specific [place] 1.016 (1.003-1.030) 07/28/17 16:20 Urine Protein 100 mg/dl mg/dL (Negative) 07/28/17 16:20 Urine Glucose (UA) 50 mg/dL (Negative) 07/28/17 16:20 Urine Ketones Neg mg/dL (Negative) 07/28/17 16:20 Urine Blood Mod (Negative) 07/28/17 16:20 Urine Nitrite Neg (Negative) 07/28/17 16:20 Ur Reducing Substances Not Reportable 07/27/17 22:46 Urine Bilirubin Neg (Negative) 07/28/17 16:20 Urine Ictotest Not Reportable 07/27/17 22:46 Urine Urobilinogen < 2.0 mg/dL (<2.0) 07/28/17 16:20 Ur Leukocyte Esterase Neg (Negative) 07/28/17 16:20 Urine WBC (Auto) 12.0 /HPF (0.0-6.0) H 07/28/17 16:20 Urine RBC (Auto) 26.0 /HPF (0.0-6.0) 07/28/17 16:20 U Epithel Cells (Auto) < 1.0 /HPF (0-13.0) 07/28/17 16:20 Urine Bacteria (Auto) 1+ /HPF (Negative) 07/27/17 22:46 Amorphous Crystals Few 07/28/17 16:20 Urine Mucus Few /HPF 07/28/17 16:20 Urine Yeast (Budding) Few /HPF 07/28/17 16:20 Urine Eosinophils None seen (None Seen) 07/28/17 16:20 Urine Creatinine 58.4 mg/dL (0.1-20.0) H 07/28/17 16:20 Urine Sodium 94 mmol/L 07/28/17 16:20 Fraction Sodium Excret 2.6 07/28/17 16:20 Urine Opiates Screen Presumptive negative 07/27/17 22:46 Urine Methadone Screen Presumptive negative 07/27/17 22:46 Ur Barbiturates Screen Presumptive negative 07/27/17 22:46 Ur Phencyclidine Scrn Presumptive negative 07/27/17 22:46 Ur Amphetamines Screen Presumptive negative 07/27/17 22:46 U Benzodiazepines Scrn Presumptive negative 07/27/17 22:46 Urine Cocaine Screen Presumptive negative 07/27/17 22:46 U Marijuana (THC) Screen Presumptive negative 07/27/17 22:46 Drugs of Abuse Note Disclamer 07/27/17 22:46 Hepatitis A IgM Ab Non-reactive (NonReactive) 07/28/17 16:00 Hep Bs Antigen Non-reactive (Negative) 07/28/17 16:00 Hep B Core IgM Ab Non-reactive (NonReactive) 07/28/17 16:00 Hepatitis C Antibody Non-reactive (NonReactive) 07/28/17 16:00 Blood Type A POSITIVE 07/27/17 18:24 Antibody Screen Negative 07/27/17 18:24
--- NOTE | 2017-07-29 09:45 | Progress Note ---
Assessment and Plan Out of the hospital Cardiac arrest Acute respiratory failure on mechanical ventilation Acute renal failure Lactic acidosis Hx of CAD with remote 4v CABG Hx of Ischemic CMP EF 15-20% on echocardiogram reports the patient declined an ICD in the past Subjective Date of service: 07/29/17 Interval history: Intubated on mechanical ventilation without sedation. Family members at bedside. Objective Vital Signs Temp Pulse Resp BP Pulse Ox 07/29/17 09:11 67 16 114/70 97 07/29/17 09:00 69 16 114/70 97 07/29/17 08:51 66 16 105/61 98 07/29/17 08:41 67 16 108/62 98 07/29/17 08:30 66 17 108/62 98 07/29/17 08:21 75 21 113/72 99 07/29/17 08:11 69 16 103/64 97 07/29/17 08:08 66 103/64 97 07/29/17 08:00 66 17 103/64 96 07/29/17 07:51 68 17 102/55 97 07/29/17 07:41 67 16 109/66 97 07/29/17 07:33 100 07/29/17 07:32 98.0 F 07/29/17 07:30 70 19 109/66 96 07/29/17 07:21 67 17 107/61 96 07/29/17 07:11 66 16 102/58 97 07/29/17 07:00 67 15 105/62 97 07/29/17 06:50 68 16 102/58 97 07/29/17 06:40 68 17 99/59 97 07/29/17 06:30 69 16 99/59 97 07/29/17 06:20 68 19 94/57 97 07/29/17 06:10 68 16 104/57 97 07/29/17 06:00 68 16 104/57 96 07/29/17 05:50 71 20 97/55 96 07/29/17 05:40 79 16 97/64 96 07/29/17 05:30 75 23 97/64 95 07/29/17 05:20 72 17 105/57 96 07/29/17 05:10 72 17 101/61 95 07/29/17 05:00 74 19 101/61 95 07/29/17 04:50 76 17 105/59 95 07/29/17 04:40 74 19 119/69 94 17 04:30 74 17 119/69 96 07/29/17 04:20 74 18 113/68 96 07/29/17 04:10 75 18 117/69 95 07/29/17 04:00 102.6 F H 76 20 133/75 97 07/29/17 03:50 76 18 117/69 96 07/29/17 03:40 75 18 122/71 96 07/29/17 03:30 74 18 120/71 97 07/29/17 03:20 75 18 122/71 97 07/29/17 03:10 75 18 136/74 97 07/29/17 03:00 77 19 136/74 97 07/29/17 02:50 82 18 146/90 95 07/29/17 02:40 77 21 130/77 97 07/29/17 02:30 78 17 134/78 97 07/29/17 02:20 75 21 130/77 96 07/29/17 02:10 76 24 127/78 96 07/29/17 02:00 73 20 127/78 97 07/29/17 01:50 73 17 119/77 97 07/29/17 01:40 74 19 125/76 96 07/29/17 01:30 74 19 125/76 97 07/29/17 01:20 74 19 120/77 96 07/29/17 01:10 74 19 114/71 97 07/29/17 01:00 75 20 114/71 97 07/29/17 00:50 74 18 122/77 97 07/29/17 00:40 74 19 126/79 97 07/29/17 00:30 75 18 125/77 97 07/29/17 00:20 75 19 126/79 97 07/29/17 00:10 75 19 121/74 97 07/29/17 00:00 99.8 F H 74 19 121/74 98 17 23:50 75 19 110/74 97 17 23:45 76 109/76 97 17 23:44 76 18 109/76 97 17 23:40 75 19 109/76 97 17 23:30 74 21 109/76 97 17 23:20 71 17 106/73 97 17 23:10 70 19 115/70 97 07/28/17 23:00 74 17 115/70 97 07/28/17 22:50 71 17 119/70 97 17 22:40 71 17 112/73 98 07/28/17 22:30 71 16 112/73 98 07/28/17 22:20 75 18 115/73 97 07/28/17 22:10 78 17 128/76 97 07/28/17 22:00 77 17 124/77 97 07/28/17 21:50 79 17 126/71 97 07/28/17 21:40 77 17 119/78 97 07/28/17 21:30 78 17 119/78 97 07/28/17 21:20 79 16 128/76 98 07/28/17 21:10 73 17 126/78 97 07/28/17 21:00 89 18 126/78 97 07/28/17 20:50 79 19 128/84 97 07/28/17 20:40 76 18 113/72 97 07/28/17 20:30 74 16 113/72 98 07/28/17 20:20 73 16 126/68 98 07/28/17 20:10 74 17 115/79 98 07/28/17 20:00 98.9 F 73 15 115/79 97 07/28/17 19:52 67 111/69 98 07/28/17 19:50 71 14 111/69 97 07/28/17 19:40 73 15 112/69 97 07/28/17 19:30 73 16 112/69 97 07/28/17 19:20 71 16 115/68 97 07/28/17 19:10 71 16 115/69 98 07/28/17 19:00 72 16 115/69 98 07/28/17 18:50 69 16 116/71 97 07/28/17 18:40 72 16 124/70 97 07/28/17 18:30 72 16 124/70 97 07/28/17 18:20 71 16 117/69 98 07/28/17 18:10 75 17 117/68 99 07/28/17 18:00 72 16 117/68 99 17 17:50 69 16 116/69 98 17 17:40 70 16 120/72 98 07/28/17 17:30 68 16 120/72 98 07/28/17 17:20 69 16 119/72 99 07/28/17 17:10 69 16 113/71 99 07/28/17 17:00 66 16 113/71 98 07/28/17 16:50 66 16 107/65 99 07/28/17 16:40 66 16 108/68 99 07/28/17 16:30 66 16 108/68 99 07/28/17 16:20 66 16 105/60 99 07/28/17 16:10 66 16 111/65 98 07/28/17 16:00 64 16 111/65 99 07/28/17 15:58 98.9 F 07/28/17 15:50 65 16 110/67 98 07/28/17 15:40 68 16 106/62 96 07/28/17 15:30 68 16 106/62 98 07/28/17 15:20 68 16 115/68 98 07/28/17 15:10 65 16 123/73 99 07/28/17 15:00 67 16 123/73 99 07/28/17 14:50 66 16 122/72 100 07/28/17 14:40 67 15 118/72 99 07/28/17 14:30 66 16 118/72 100 07/28/17 14:20 65 16 121/69 99 07/28/17 14:10 64 16 112/59 99 07/28/17 14:00 66 16 112/59 98 07/28/17 13:50 65 16 118/73 98 07/28/17 13:40 65 17 110/67 98 07/28/17 13:30 67 16 110/67 98 07/28/17 13:20 64 16 118/69 98 07/28/17 13:10 64 16 119/71 98 07/28/17 13:00 63 16 112/59 98 07/28/17 12:50 64 16 118/71 98 07/28/17 12:40 64 16 115/71 98 07/28/17 12:30 64 16 115/71 98 07/28/17 12:20 63 16 114/69 98 07/28/17 12:10 63 16 109/70 98 07/28/17 12:00 99.3 F 62 16 109/70 98 07/28/17 11:50 62 16 106/64 98 07/28/17 11:40 61 16 112/70 98 07/28/17 11:30 62 16 112/70 98 07/28/17 11:20 61 16 107/66 98 07/28/17 11:10 61 16 108/65 98 07/28/17 11:00 62 16 108/65 98 07/28/17 10:50 62 16 106/66 98 07/28/17 10:40 59 L 16 104/65 98 07/28/17 10:30 62 16 104/65 98 07/28/17 10:20 63 16 104/65 98 07/28/17 10:10 61 16 89/59 97 07/28/17 10:00 64 16 89/59 99 07/28/17 09:50 60 16 93/58 97 07/28/17 09:48 62 93/58 97 07/28/17 09:40 62 16 118/58 98 - Physical Examination General: Other (intubated on the vent) Cardiac: Positive: Reg Rate and Rhythm - Labs and Meds CBC 07/29/17 Range/Units Unknown WBC 14.4 H (4.5-11.0) K/mm3 RBC 4.27 (3.65-5.03) M/mm3 Hgb 12.3 (11.8-15.2) gm/dl Hct 38.1 (35.5-45.6) % Plt Count 125 L (140-440) K/mm3 Comprehensive Metabolic Panel 07/28/17 07/29/17 Range/Units 16:00 05:00 Sodium 146 H 145 (137-145) mmol/L Potassium 4.8 (3.6-5.0) mmol/L Chloride 111.7 H (98-107) mmol/L Carbon Dioxide 18 L (22-30) mmol/L BUN 37 H (9-20) mg/dL Creatinine 2.4 H 2.1 H (0.8-1.5) mg/dL Glucose 213 H (75-100) mg/dL Calcium 6.9 L (8.4-10.2) mg/dL - Imaging and Cardiology EKG: image reviewed
[2017-07-29] MEDS: PEPCID IV SCH (09:54)
--- NOTE | 2017-07-29 12:11 | Progress Note ---
Assessment and Plan Impression * Acute renal failure * Status post cardiac arrest * History of coronary artery disease * Hypertension * Mild metabolic acidosis * Hypotension Recommendations * History of creatinine seems to be plateauing. His fractional excretion of sodium is 2.6%. He most likely has ATN. * He is currently nonoliguric and his serum potassium is also better this morning. No indication for dialysis at this time. * Continue IV hydration for now. * His urine did show 2+ dipstick protein and moderate blood. Follow-up results of vasculitis workup. * Hepatitis B and C both are negative * His acidosis is most likely secondary to lactic acidosis * CT scan of his abdomen showed bilateral kidney cysts as well as stones * Monitor fluid status and electrolytes closely. * Discussed with patient's and brother at bedside, * Avoid nephrotoxins * Adjust meds for GFR less than 10 Subjective Date of service: 07/29/17 Interval history: Patient remains on the ventilator. Currently on 45% FiO2. Unresponsive. Still on 2 pressors. Objective - Vital Signs Vital signs: Vital Signs - 12hr 07/29/17 07/29/17 07/29/17 00:10 00:20 00:30 Temperature Pulse Rate 75 75 75 Respiratory 19 19 18 Rate Blood Pressure 121/74 126/79 125/77 O2 Sat by Pulse 97 97 97 Oximetry 07/29/17 07/29/17 07/29/17 00:40 00:50 01:00 Temperature Pulse Rate 74 74 75 Respiratory 19 18 20 Rate Blood Pressure 126/79 122/77 114/71 O2 Sat by Pulse 97 97 97 Oximetry 07/29/17 07/29/17 07/29/17 01:10 01:20 01:30 Temperature Pulse Rate 74 74 74 Respiratory 19 19 19 Rate Blood Pressure 114/71 120/77 125/76 O2 Sat by Pulse 97 96 97 Oximetry 07/29/17 07/29/17 07/29/17 01:40 01:50 02:00 Temperature Pulse Rate 74 73 73 Respiratory 19 17 20 Rate Blood Pressure 125/76 119/77 127/78 O2 Sat by Pulse 96 97 97 Oximetry 07/29/17 07/29/17 07/29/17 02:10 02:20 02:30 Temperature Pulse Rate 76 75 78 Respiratory 24 21 17 Rate Blood Pressure 127/78 130/77 134/78 O2 Sat by Pulse 96 96 97 Oximetry 12/07/29/17 07/29/17 02:40 02:50 03:00 Temperature Pulse Rate 77 82 77 Respiratory 21 18 19 Rate Blood Pressure 130/77 146/90 136/74 O2 Sat by Pulse 97 95 97 Oximetry 07/29/17 07/29/17 07/29/17 03:10 03:20 03:30 Temperature Pulse Rate 75 75 74 Respiratory 18 18 18 Rate Blood Pressure 136/74 122/71 120/71 O2 Sat by Pulse 97 97 97 Oximetry 07/29/17 07/29/17 07/29/17 03:40 03:50 04:00 Temperature 102.6 F H Pulse Rate 75 76 76 Respiratory 18 18 20 Rate Blood Pressure 122/71 117/69 133/75 O2 Sat by Pulse 96 96 97 Oximetry 07/29/17 07/29/17 07/29/17 04:10 04:20 04:30 Temperature Pulse Rate 75 74 74 Respiratory 18 18 17 Rate Blood Pressure 117/69 113/68 119/69 O2 Sat by Pulse 95 96 96 Oximetry 07/29/17 07/29/17 07/29/17 04:40 04:50 05:00 Temperature Pulse Rate 74 76 74 Respiratory 19 17 19 Rate Blood Pressure 119/69 105/59 101/61 O2 Sat by Pulse 94 95 95 Oximetry 07/29/17 07/29/17 07/29/17 05:10 05:20 05:30 Temperature Pulse Rate 72 72 75 Respiratory 17 17 23 Rate Blood Pressure 101/61 105/57 97/64 O2 Sat by Pulse 95 96 95 Oximetry 07/29/17 07/29/17 07/29/17 05:40 05:50 06:00 Temperature Pulse Rate 79 71 68 Respiratory 16 20 16 Rate Blood Pressure 97/64 97/55 104/57 O2 Sat by Pulse 96 96 96 Oximetry 07/29/17 07/29/17 07/29/17 06:10 06:20 06:30 Temperature Pulse Rate 68 68 69 Respiratory 16 19 16 Rate Blood Pressure 104/57 94/57 99/59 O2 Sat by Pulse 97 97 97 Oximetry 07/29/17 07/29/17 07/29/17 06:40 06:50 07:00 Temperature Pulse Rate 68 68 67 Respiratory 17 16 15 Rate Blood Pressure 99/59 102/58 105/62 O2 Sat by Pulse 97 97 97 Oximetry 12/07/29/17 07/29/17 07:11 07:21 07:30 Temperature Pulse Rate 66 67 70 Respiratory 16 17 19 Rate Blood Pressure 102/58 107/61 109/66 O2 Sat by Pulse 97 96 96 Oximetry 07/29/17 07/29/17 07/29/17 07:32 07:33 07:41 Temperature 98.0 F Pulse Rate 67 Respiratory 16 Rate Blood Pressure 109/66 O2 Sat by Pulse 100 97 Oximetry 07/29/17 07/29/17 07/29/17 07:51 08:00 08:08 Temperature Pulse Rate 68 66 66 Respiratory 17 17 Rate Blood Pressure 102/55 103/64 103/64 O2 Sat by Pulse 97 96 97 Oximetry 07/29/17 07/29/17 07/29/17 08:11 08:21 08:30 Temperature Pulse Rate 69 75 66 Respiratory 16 21 17 Rate Blood Pressure 103/64 113/72 108/62 O2 Sat by Pulse 97 99 98 Oximetry 07/29/17 07/29/17 07/29/17 08:41 08:51 09:00 Temperature Pulse Rate 67 66 69 Respiratory 16 16 16 Rate Blood Pressure 108/62 105/61 114/70 O2 Sat by Pulse 98 98 97 Oximetry 07/29/17 07/29/17 07/29/17 09:11 09:21 09:30 Temperature Pulse Rate 67 67 68 Respiratory 16 16 16 Rate Blood Pressure 114/70 106/63 116/69 O2 Sat by Pulse 97 97 97 Oximetry 07/29/17 07/29/17 07/29/17 09:41 09:51 10:00 Temperature Pulse Rate 67 66 67 Respiratory 16 16 16 Rate Blood Pressure 116/69 108/65 113/70 O2 Sat by Pulse 97 97 97 Oximetry 07/29/17 07/29/17 07/29/17 10:11 10:21 10:30 Temperature Pulse Rate 70 68 67 Respiratory 16 17 17 Rate Blood Pressure 113/70 112/62 118/68 O2 Sat by Pulse 97 97 98 Oximetry 07/29/17 07/29/17 07/29/17 10:41 10:51 11:00 Temperature Pulse Rate 64 66 68 Respiratory 17 16 17 Rate Blood Pressure 118/68 112/62 111/65 O2 Sat by Pulse 97 97 97 Oximetry 07/29/17 07/29/17 07/29/17 11:11 11:21 11:30 Temperature Pulse Rate 69 67 69 Respiratory 17 16 Rate Blood Pressure 111/65 119/70 121/76 O2 Sat by Pulse 97 98 98 Oximetry 07/29/17 11:53 Temperature Pulse Rate Respiratory Rate Blood Pressure O2 Sat by Pulse 98 Oximetry - General Appearance General appearance: well-developed, well-nourished, appears stated age, intubated EENT: PERRL, mucous membranes moist Neck: no JVD, no thyromegaly, no carotid bruit, supple Respiratory: Present: Clear to Ascultation Cardiology: regular, normal heart rate, S1S2, no murmurs Gastrointestinal: normal, normoactive bowel sounds Integumentary: no rash, other (no edema) - Lab 07/29/17 Unknown 07/29/17 05:00 Most recent lab results Calcium 6.9 mg/dL (8.4-10.2) L 07/29/17 05:00 Urine Creatinine 58.4 mg/dL (0.1-20.0) H 07/28/17 16:20 Urine Sodium 94 mmol/L 07/28/17 16:20
[2017-07-29] MEDS: CORDARONE 900 MG in D5W 482 ML IV SCH (14:55)
--- NOTE | 2017-07-30 02:20 | Ultrasound Report ---
FINAL REPORT EXAM: US RENAL BILAT HISTORY: KATELYN TECHNIQUE: Routine imaging was obtained of the kidneys and bladder. FINDINGS: The right kidney measures 12.7 cm x 5.3 cm x 5.6 cm. The cortical thickness is 1.9 cm. There are multiple benign cortical cysts in the right kidney the largest measuring 4.2 cm x 3.5 cm x 4.2 cm. There is a small amount of perinephric fluid on the right side. There is no evidence of hydronephrosis. The overall echotexture of the cortex of the right kidney is increased. The left kidney measures 11.9 cm x 6.4 cm x 4.5 cm. The cortical thickness is 2.0 cm. There are multiple benign cortical cysts in left kidney measuring up to 2.4 cm in diameter. The cortical echotexture is increased also in the left kidney. There is a 7 millimeter shadowing stone centrally in the left kidney. There is no evidence of hydronephrosis. There is a Jacob catheter in the bladder. IMPRESSION: Bilateral cortical cysts in both kidneys noted. No evidence of hydronephrosis Increased cortical texture of both kidneys compatible with underlying renal medical disease Nonobstructing 7 millimeter stone in left kidney. Very small amount of localized fluid in the right perinephric space.
--- NOTE | 2017-07-30 03:41 | XRay Report ---
FINAL REPORT EXAM: XR CHEST 1V AP HISTORY: follow up respiratory failure TECHNIQUE: A portable semi-upright view of the chest was obtained and compared to the study of 07/29/2017. FINDINGS: The heart is mildly enlarged. There are sternotomy sutures. The lungs remain mildly congested. There is elevation of left hemidiaphragm. There are no localized infiltrates. The ET tube and NG tube appear in good position. There are EKG leads overlying the chest wall. The bones and soft tissues are unchanged. IMPRESSION: Cardiomegaly with stable mild congestion. No localized infiltrates or effusions.
[2017-07-30] MEDS: NACL 0.9% 1000 ML 1,000 ML IV SCH (05:32)
[2017-07-30 05:45] LABS: Mean Corpuscular HGB Conc 32 % (32-34); Mean Corpuscular Hemoglobin 28 pg (28-32); Mean Corpuscular Volume 89 fl (84-94); Platelet Count 117 K/mm3 (140-440); Red Blood Count 4.28 M/mm3 (3.65-5.03); Red Cell Distribution Width 14.2 % (13.2-15.2)
[2017-07-30 06:08] LABS: Calcium 6.9 mg/dL (8.4-10.2)
--- NOTE | 2017-07-30 08:40 | Progress Note ---
Assessment and Plan Assessment and plan: Cardio-resp arrest at home. Admitted to ICU. He is intubated, on vent. Pulmonology was consulted and he was evaluated. As per ED Physician notes, downtime about 40 mins, no pulse for about 40 mins. He had ventricular fib/v tach rhythm, was shocked, given Amiodarone,intubated by paramedics before before brought to ED. CPR continued in ED before he regained pulse. Cardiology and Pulmonology following. Cardiology states he is not a candidate for further ischemic evaluation because of current poor condition, co-morbidities. Shock. Cardiogenic +/- septic shock. He is now on Vasopressin only, was on 2 pressors-Levophed and Vasopressin .Titrate to keep MAP > 65 Acute kidney Injury due to acute tubular necrosis. Improving, Creatinine improved 1.8 today. Nephrology following. I discussed with Nephrology. Elevated Troponin. To r/o NSTEMI CAD s/p CABG. cardiology consulted. Ischemic cardiomyopathy Encephalopathy Comatose. he is unresponsive Anoxic encephalopathy, clinically Full code status Discussed with at bedside. I informed her that prognosis is poor because of about 40mins downtime. I discussed code status and she wishes to continue full code. History Interval history: Patient had cardio-resp arrest at home, brought to ED by paramadics, Intubated, on vent, Unresponsive Hospitalist Physical - Physical exam Narrative exam: GEN APPEARANCE : Intubated,on ventilator HEENT: Normocephalic, atraumatic NECK : supple, no JVD LUNGS: Clear to auscultation bilaterally, no wheeze, HEART: S1 and S2 regular, no murmurs, rubs or gallop, ABD: Soft, non tender, non distended, normal bowel sounds EXT: No edema, no clubbing, no cyanosis NEURO: Unresponsive, intubated - Constitutional Vitals: Temp Pulse Resp BP Pulse Ox 99.6 F 72 18 148/88 97 07/30/17 03:39 07/30/17 06:30 07/30/17 06:30 07/30/17 06:30 07/30/17 06:30 General appearance: Present: other (intubated on the vent) Results - Labs CBC & Chem 7: 07/30/17 Unknown 07/30/17 Unknown Labs: Laboratory Last Values WBC 15.6 K/mm3 (4.5-11.0) H 07/30/17 Unknown RBC 4.28 M/mm3 (3.65-5.03) 07/30/17 Unknown Hgb 12.0 gm/dl (11.8-15.2) 07/30/17 Unknown Hct 38.0 % (35.5-45.6) 07/30/17 Unknown MCV 89 fl (84-94) 07/30/17 Unknown MCH 28 pg (28-32) 07/30/17 Unknown MCHC 32 % (32-34) 07/30/17 Unknown RDW 14.2 % (13.2-15.2) 07/30/17 Unknown Plt Count 117 K/mm3 (140-440) L 07/30/17 Unknown Lymph % (Auto) 8.4 % (13.4-35.0) L 07/28/17 06:30 [place] % (Auto) 7.5 % (0.0-7.3) H 07/28/17 06:30 Eos % (Auto) 0.0 % (0.0-4.3) 07/28/17 06:30 Baso % (Auto) 0.0 % (0.0-1.8) 07/28/17 06:30 Lymph # 1.4 K/mm3 (1.2-5.4) 07/28/17 06:30 [place] # 1.3 K/mm3 (0.0-0.8) H 07/28/17 06:30 Eos # 0.0 K/mm3 (0.0-0.4) 07/28/17 06:30 Baso # 0.0 K/mm3 (0.0-0.1) 07/28/17 06:30 Add Manual Diff Complete 07/27/17 18:26 Total Counted 100 07/27/17 18:26 Seg Neutrophils % 84.1 % (40.0-70.0) H 07/28/17 06:30 Seg Neuts % (Manual) 57.0 % (40.0-70.0) 07/27/17 18:26 Band Neutrophils % 0 % 07/27/17 18:26 Lymphocytes % (Manual) 36.0 % (13.4-35.0) H 07/27/17 18:26 Reactive Lymphs % (Man) 0 % 07/27/17 18:26 Monocytes % (Manual) 7.0 % (0.0-7.3) 07/27/17 18:26 Eosinophils % (Manual) 0 % (0.0-4.3) 07/27/17 18:26 Basophils % (Manual) 0 % (0.0-1.8) 07/27/17 18:26 Metamyelocytes % 0 % 07/27/17 18:26 Myelocytes % 0 % 07/27/17 18:26 Promyelocytes % 0 % 07/27/17 18:26 Blast Cells % 0 % 07/27/17 18:26 Nucleated RBC % Not Reportable 07/27/17 18:26 Seg Neutrophils # 14.2 K/mm3 (1.8-7.7) H 07/28/17 06:30 Seg Neutrophils # Man 8.9 K/mm3 (1.8-7.7) H 07/27/17 18:26 Band Neutrophils # 0.0 K/mm3 07/27/17 18:26 Lymphocytes # (Manual) 5.6 K/mm3 (1.2-5.4) H 07/27/17 18:26 Abs React Lymphs (Man) 0.0 K/mm3 07/27/17 18:26 Monocytes # (Manual) 1.1 K/mm3 (0.0-0.8) H 07/27/17 18:26 Eosinophils # (Manual) 0.0 K/mm3 (0.0-0.4) 07/27/17 18:26 Basophils # (Manual) 0.0 K/mm3 (0.0-0.1) 07/27/17 18:26 Metamyelocytes # 0.0 K/mm3 07/27/17 18:26 Myelocytes # 0.0 K/mm3 07/27/17 18:26 Promyelocytes # 0.0 K/mm3 07/27/17 18:26 Blast Cells # 0.0 K/mm3 07/27/17 18:26 WBC Morphology Not Reportable 07/27/17 18:26 Hypersegmented Neuts Not Reportable 07/27/17 18:26 Hyposegmented Neuts Not Reportable 07/27/17 18:26 Hypogranular Neuts Not Reportable 07/27/17 18:26 Smudge Cells Not Reportable 07/27/17 18:26 Toxic Granulation Not Reportable 07/27/17 18:26 Toxic Vacuolation Not Reportable 07/27/17 18:26 Dohle Bodies Not Reportable 07/27/17 18:26 Pelger-Huet Anomaly Not Reportable 07/27/17 18:26 [place] Rods Not Reportable 07/27/17 18:26 Platelet Estimate Consistent w auto 07/27/17 18:26 Clumped Platelets Not Reportable 07/27/17 18:26 Plt Clumps, EDTA Not Reportable 07/27/17 18:26 Large Platelets Not Reportable 07/27/17 18:26 Giant Platelets Not Reportable 07/27/17 18:26 Platelet Satelliting Not Reportable 07/27/17 18:26 Plt Morphology Comment Not Reportable 07/27/17 18:26 RBC Morphology Not Reportable 07/27/17 18:26 Dimorphic RBCs Not Reportable 07/27/17 18:26 Polychromasia Not Reportable 07/27/17 18:26 Hypochromasia Not Reportable 07/27/17 18:26 Poikilocytosis Not Reportable 07/27/17 18:26 Anisocytosis Rare 07/27/17 18:26 Microcytosis Not Reportable 07/27/17 18:26 Macrocytosis Not Reportable 07/27/17 18:26 Spherocytes Not Reportable 07/27/17 18:26 Pappenheimer Bodies Not Reportable 07/27/17 18:26 Sickle Cells Not Reportable 07/27/17 18:26 Target Cells Not Reportable 07/27/17 18:26 Tear Drop Cells Not Reportable 07/27/17 18:26 Ovalocytes Not Reportable 07/27/17 18:26 Helmet Cells Not Reportable 07/27/17 18:26 [place] Bodies Not Reportable 07/27/17 18:26 [place] Rings Not Reportable 07/27/17 18:26 [place] Cells Not Reportable 07/27/17 18:26 Bite Cells Not Reportable 07/27/17 18:26 Crenated Cell Not Reportable 07/27/17 18:26 Elliptocytes Not Reportable 07/27/17 18:26 Acanthocytes (Spur) Not Reportable 07/27/17 18:26 Rouleaux Not Reportable 07/27/17 18:26 Hemoglobin C Crystals Not Reportable 07/27/17 18:26 Schistocytes Not Reportable 07/27/17 18:26 Malaria parasites Not Reportable 07/27/17 18:26 Mina Bodies Not Reportable 07/27/17 18:26 Hem Pathologist Commnt No 07/27/17 18:26 PT 15.6 Sec. (12.2-14.9) H 07/27/17 18:26 INR 1.18 (0.87-1.13) H 07/27/17 18:26 APTT 38.5 Sec. (24.2-36.6) H 07/27/17 18:26 POC ABG pH 7.319 (7.35-7.45) L 07/30/17 04:07 POC ABG pCO2 27.8 (35-45) L 07/30/17 04:07 POC ABG pO2 121 (80-105) H 07/30/17 04:07 POC ABG HCO3 14.3 07/30/17 04:07 POC ABG Total CO2 15 07/30/17 04:07 POC ABG O2 Sat 98 07/30/17 04:07 POC ABG Base Excess -12 07/30/17 04:07 FiO2 40 % 07/30/17 04:07 Sodium 146 mmol/L (137-145) H 07/30/17 Unknown Potassium 4.8 mmol/L (3.6-5.0) 07/30/17 Unknown Chloride 113.8 mmol/L (98-107) H 07/30/17 Unknown Carbon Dioxide 18 mmol/L (22-30) L 07/30/17 Unknown Anion Gap 19 mmol/L 07/30/17 Unknown BUN 36 mg/dL (9-20) H 07/30/17 Unknown Creatinine 1.8 mg/dL (0.8-1.5) H 07/30/17 Unknown Estimated GFR 37 ml/min 07/30/17 Unknown BUN/Creatinine Ratio 20 % 07/30/17 Unknown Glucose 177 mg/dL (75-100) H 07/30/17 Unknown POC Glucose 199 (70-105) H 07/28/17 01:47 Lactic Acid 2.10 mmol/L (0.7-2.0) H* 07/28/17 05:44 Calcium 6.9 mg/dL (8.4-10.2) L 07/30/17 Unknown Total Creatine Kinase 434 units/L (55-170) H 07/28/17 05:44 CK-MB (CK-2) 10.8 ng/mL (0.0-4.0) H 07/28/17 05:44 CK-MB (CK-2) Rel Index 2.4 (0-4) 07/28/17 05:44 Troponin T 0.521 ng/mL (0.00-0.029) H* D 07/28/17 05:44 Triglycerides 190 mg/dL (2-149) H 07/27/17 18:26 Cholesterol 93 mg/dL (50-199) 07/27/17 18:26 LDL Cholesterol Direct 34 mg/dL (50-130) L 07/27/17 18:26 HDL Cholesterol 21 mg/dL (40-59) L 07/27/17 18:26 Cholesterol/HDL Ratio 4.42 % 07/27/17 18:26 Urine Color Yellow (Yellow) 07/28/17 16:20 Urine Turbidity Clear (Clear) 07/28/17 16:20 Urine pH 5.0 (5.0-7.0) 07/28/17 16:20 Ur Specific [place] 1.016 (1.003-1.030) 07/28/17 16:20 Urine Protein 100 mg/dl mg/dL (Negative) 07/28/17 16:20 Urine Glucose (UA) 50 mg/dL (Negative) 07/28/17 16:20 Urine Ketones Neg mg/dL (Negative) 07/28/17 16:20 Urine Blood Mod (Negative) 07/28/17 16:20 Urine Nitrite Neg (Negative) 07/28/17 16:20 Ur Reducing Substances Not Reportable 07/27/17 22:46 Urine Bilirubin Neg (Negative) 07/28/17 16:20 Urine Ictotest Not Reportable 07/27/17 22:46 Urine Urobilinogen < 2.0 mg/dL (<2.0) 07/28/17 16:20 Ur Leukocyte Esterase Neg (Negative) 07/28/17 16:20 Urine WBC (Auto) 12.0 /HPF (0.0-6.0) H 07/28/17 16:20 Urine RBC (Auto) 26.0 /HPF (0.0-6.0) 07/28/17 16:20 U Epithel Cells (Auto) < 1.0 /HPF (0-13.0) 07/28/17 16:20 Urine Bacteria (Auto) 1+ /HPF (Negative) 07/27/17 22:46 Amorphous Crystals Few 07/28/17 16:20 Urine Mucus Few /HPF 07/28/17 16:20 Urine Yeast (Budding) Few /HPF 07/28/17 16:20 Urine Eosinophils None seen (None Seen) 07/28/17 16:20 Urine Creatinine 58.4 mg/dL (0.1-20.0) H 07/28/17 16:20 Urine Sodium 94 mmol/L 07/28/17 16:20 Fraction Sodium Excret 2.6 07/28/17 16:20 Urine Opiates Screen Presumptive negative 07/27/17 22:46 Urine Methadone Screen Presumptive negative 07/27/17 22:46 Ur Barbiturates Screen Presumptive negative 07/27/17 22:46 Ur Phencyclidine Scrn Presumptive negative 07/27/17 22:46 Ur Amphetamines Screen Presumptive negative 07/27/17 22:46 U Benzodiazepines Scrn Presumptive negative 07/27/17 22:46 Urine Cocaine Screen Presumptive negative 07/27/17 22:46 U Marijuana (THC) Screen Presumptive negative 07/27/17 22:46 Drugs of Abuse Note Disclamer 07/27/17 22:46 Hepatitis A IgM Ab Non-reactive (NonReactive) 07/28/17 16:00 Hep Bs Antigen Non-reactive (Negative) 07/28/17 16:00 Hep B Core IgM Ab Non-reactive (NonReactive) 07/28/17 16:00 Hepatitis C Antibody Non-reactive (NonReactive) 07/28/17 16:00 Blood Type A POSITIVE 07/27/17 18:24 Antibody Screen Negative 07/27/17 18:24
[2017-07-30] MEDS: PEPCID IV SCH (09:16)
--- NOTE | 2017-07-30 09:54 | Progress Note ---
Assessment and Plan Out of hospital cardiac arrest 40 minutes of ACLS before ROSC On IV amiodarone Apparently, patient declined ICD 30 days ago Ischemic cardiomyopathy, LVEF 15-20% CAD s/p CABG 2005 at [facility] ONEILL to LAD; COREY to RI; SVG to PLOM; SVG to RV branch and PDA branch Non-specific troponin Not consistent with ACS Acute renal failure Recommendations: Supportive ICU care Neuro assessment and follow-up Any further cardiac intervention will solely depend on neuro recovery Subjective Date of service: 07/30/17 Principal diagnosis: out of hospital cardiac arrest Interval history: Remains unresponsive observation Objective Vital Signs Temp Pulse Pulse Pulse Pulse Pulse Resp 07/30/17 08:45 74 07/30/17 08:41 80 27 H 07/30/17 08:30 68 17 07/30/17 08:21 67 16 07/30/17 08:11 71 19 07/30/17 08:00 100.4 F H 69 69 16 07/30/17 07:51 69 16 07/30/17 07:41 73 18 07/30/17 07:30 69 19 07/30/17 07:21 67 16 07/30/17 07:11 71 26 H 07/30/17 07:00 70 22 07/30/17 06:51 70 19 07/30/17 06:41 77 24 07/30/17 06:30 72 18 07/30/17 06:21 67 16 07/30/17 06:11 71 16 07/30/17 06:00 75 22 07/30/17 05:51 67 18 07/30/17 05:41 72 24 07/30/17 05:30 78 31 H 07/30/17 05:21 72 23 07/30/17 05:11 75 20 07/30/17 05:01 71 19 07/30/17 04:51 78 12 07/30/17 04:41 71 17 07/30/17 04:30 74 19 07/30/17 04:21 68 17 07/30/17 04:11 68 16 07/30/17 04:00 69 25 H 07/30/17 03:52 67 67 67 21 07/30/17 03:51 66 17 07/30/17 03:41 67 17 07/30/17 03:39 99.6 F 07/30/17 03:30 68 17 07/30/17 03:21 72 21 07/30/17 03:11 69 19 07/30/17 03:01 66 17 07/30/17 02:51 69 15 07/30/17 02:41 68 20 07/30/17 02:30 64 17 07/30/17 02:21 63 17 07/30/17 02:11 67 16 07/30/17 02:00 65 16 07/30/17 01:51 65 19 07/30/17 01:41 66 17 07/30/17 01:30 69 17 07/30/17 01:21 69 18 07/30/17 01:11 64 16 07/30/17 01:01 67 20 07/30/17 00:51 69 15 07/30/17 00:41 67 17 07/30/17 00:30 64 17 07/30/17 00:21 65 17 07/30/17 00:11 70 17 07/30/17 00:04 68 07/30/17 00:00 67 18 07/29/17 23:51 67 19 07/29/17 23:41 69 22 07/29/17 23:30 69 21 07/29/17 23:23 69 16 07/29/17 23:21 69 21 07/29/17 23:18 101.8 F H 07/29/17 23:11 68 19 07/29/17 23:01 73 21 07/29/17 22:51 70 18 07/29/17 22:49 76 76 76 22 07/29/17 22:41 71 18 07/29/17 22:30 68 20 07/29/17 22:21 69 18 07/29/17 22:11 66 16 07/29/17 22:00 70 21 07/29/17 21:51 70 24 17 21:41 70 16 17 21:30 69 20 17 21:21 70 19 17 21:11 73 17 07/29/17 21:02 74 07/29/17 21:00 72 16 17 20:51 70 18 07/29/17 20:41 74 26 H 07/29/17 20:30 69 15 17 20:21 68 16 17 20:11 69 17 07/29/17 20:00 99.7 F H 72 17 12/22/17 19:51 68 23 07/29/17 19:41 67 17 07/29/17 19:30 68 18 07/29/17 19:22 67 07/29/17 19:21 68 24 07/29/17 19:11 70 17 07/29/17 19:00 68 17 07/29/17 18:51 67 20 07/29/17 18:41 68 15 07/29/17 18:30 69 28 H 07/29/17 18:21 67 17 07/29/17 18:11 67 18 07/29/17 18:00 67 16 07/29/17 17:51 65 16 07/29/17 17:41 68 20 07/29/17 17:30 68 18 07/29/17 17:21 67 16 07/29/17 17:11 72 23 07/29/17 17:00 68 16 07/29/17 16:51 68 16 07/29/17 16:41 67 17 07/29/17 16:30 69 20 07/29/17 16:21 67 17 07/29/17 16:10 68 18 07/29/17 16:00 99.9 F H 68 18 07/29/17 15:51 72 18 07/29/17 15:47 69 07/29/17 15:41 67 17 07/29/17 15:30 73 16 07/29/17 15:21 68 17 07/29/17 15:11 67 17 07/29/17 15:00 66 18 07/29/17 14:51 70 21 07/29/17 14:41 66 16 07/29/17 14:30 67 16 07/29/17 14:21 69 17 07/29/17 14:11 71 20 07/29/17 14:06 07/29/17 14:00 69 17 07/29/17 13:51 68 18 07/29/17 13:41 71 24 07/29/17 13:30 67 16 07/29/17 13:21 65 16 07/29/17 13:11 68 19 07/29/17 13:00 66 16 07/29/17 12:51 68 17 07/29/17 12:41 66 16 07/29/17 12:30 65 16 07/29/17 12:21 68 16 07/29/17 12:11 68 16 07/29/17 12:00 98.7 F 65 16 07/29/17 11:53 07/29/17 11:51 69 17 07/29/17 11:41 65 16 07/29/17 11:30 69 18 07/29/17 11:21 67 16 07/29/17 11:11 69 17 07/29/17 11:00 68 17 07/29/17 10:51 66 16 07/29/17 10:41 64 17 07/29/17 10:30 67 17 07/29/17 10:21 68 17 07/29/17 10:11 70 16 07/29/17 10:00 67 16 BP Pulse Ox 07/30/17 08:45 169/95 96 07/30/17 08:41 143/78 97 07/30/17 08:30 143/78 96 07/30/17 08:21 146/85 96 07/30/17 08:11 146/85 96 07/30/17 08:00 146/85 97 07/30/17 07:51 148/89 97 07/30/17 07:41 153/83 97 07/30/17 07:30 153/83 97 07/30/17 07:21 150/86 96 07/30/17 07:11 154/87 97 07/30/17 07:00 154/87 97 07/30/17 06:51 151/89 96 07/30/17 06:41 148/88 96 07/30/17 06:30 148/88 97 07/30/17 06:21 137/83 96 07/30/17 06:11 147/87 95 07/30/17 06:00 147/87 95 07/30/17 05:51 144/82 95 07/30/17 05:41 156/97 95 07/30/17 05:30 156/97 95 07/30/17 05:21 136/90 94 07/30/17 05:11 136/90 95 07/30/17 05:01 136/90 95 07/30/17 04:51 136/90 90 07/30/17 04:41 147/90 96 07/30/17 04:30 147/90 96 07/30/17 04:21 149/84 96 07/30/17 04:11 150/87 97 07/30/17 04:00 150/87 98 07/30/17 03:52 98 07/30/17 03:51 146/80 98 07/30/17 03:41 142/90 98 07/30/17 03:39 07/30/17 03:30 142/90 98 07/30/17 03:21 143/92 97 07/30/17 03:11 141/75 98 07/30/17 03:01 141/75 98 07/30/17 02:51 140/80 98 07/30/17 02:41 126/73 98 07/30/17 02:30 126/73 98 07/30/17 02:21 132/77 98 07/30/17 02:11 134/73 98 07/30/17 02:00 134/73 98 07/30/17 01:51 140/86 98 07/30/17 01:41 142/84 98 07/30/17 01:30 142/84 98 07/30/17 01:21 141/84 98 07/30/17 01:11 144/87 98 07/30/17 01:01 151/79 98 07/30/17 00:51 129/82 98 07/30/17 00:41 141/87 97 07/30/17 00:30 141/82 98 07/30/17 00:21 144/87 98 07/30/17 00:11 147/93 98 07/30/17 00:04 150/88 97 07/30/17 00:00 141/87 97 07/29/17 23:51 147/93 98 17 23:41 150/88 98 17 23:30 150/88 97 07/29/17 23:23 141/85 98 17 23:21 141/85 97 07/29/17 23:18 17 23:11 159/89 97 17 23:01 159/89 97 17 22:51 117/78 96 07/29/17 22:49 100 17 22:41 126/74 97 07/29/17 22:30 126/74 97 07/29/17 22:21 121/71 97 17 22:11 136/82 97 17 22:00 136/82 97 17 21:51 127/81 97 17 21:41 128/75 97 17 21:30 128/75 97 17 21:21 124/74 97 17 21:11 133/77 97 17 21:02 07/29/17 21:00 133/77 97 17 20:51 139/77 96 17 20:41 139/89 97 17 20:30 139/89 99 17 20:21 132/78 98 17 20:11 131/78 98 17 20:00 131/78 98 17 19:51 140/78 98 17 19:41 141/81 98 17 19:30 141/81 98 17 19:22 139/82 98 17 19:21 139/82 98 07/29/17 19:11 126/79 98 07/29/17 19:00 126/79 98 17 18:51 133/81 98 17 18:41 128/81 98 17 18:30 128/81 98 17 18:21 130/79 98 07/29/17 18:11 117/70 98 17 18:00 117/70 98 17 17:51 126/70 98 17 17:41 131/78 98 17 17:30 131/78 98 17 17:21 126/76 98 17 17:11 126/77 98 17 17:00 126/77 98 17 16:51 129/74 98 17 16:41 123/75 98 17 16:30 123/75 98 17 16:21 129/76 98 17 16:10 122/74 98 17 16:00 122/74 97 17 15:51 125/67 97 17 15:47 125/67 98 17 15:41 128/71 98 17 15:30 128/71 97 07/29/17 15:21 128/77 98 07/29/17 15:11 132/75 98 07/29/17 15:00 132/75 98 07/29/17 14:51 120/77 97 07/29/17 14:41 122/76 98 07/29/17 14:30 122/76 98 07/29/17 14:21 138/85 98 07/29/17 14:11 131/77 97 07/29/17 14:06 98 07/29/17 14:00 131/77 97 07/29/17 13:51 117/65 97 07/29/17 13:41 112/55 98 07/29/17 13:30 112/55 98 07/29/17 13:21 117/65 98 07/29/17 13:11 117/57 98 07/29/17 13:00 117/57 98 07/29/17 12:51 111/68 97 07/29/17 12:41 113/71 97 07/29/17 12:30 113/71 98 07/29/17 12:21 118/71 97 07/29/17 12:11 105/69 97 07/29/17 12:00 105/69 97 07/29/17 11:53 98 07/29/17 11:51 116/70 96 07/29/17 11:41 121/76 97 07/29/17 11:30 121/76 98 07/29/17 11:21 119/70 98 07/29/17 11:11 111/65 97 07/29/17 11:00 111/65 97 07/29/17 10:51 112/62 97 07/29/17 10:41 118/68 97 07/29/17 10:30 118/68 98 07/29/17 10:21 112/62 97 07/29/17 10:11 113/70 97 07/29/17 10:00 113/70 97 - Physical Examination Narrative exam: Physical examination Vitals reviewed GEN: Ventilated HEENT: Carotids 2+ NECK: Supple CVS: S1 and S2 heard no significant murmur or gallop noted LUNGS/CHEST: Normal auscultation ABD: Soft nontender Extremities: No edema noted normal color NEURO: No response to verbal or pain stimuli General: Other (intubated on the vent) Neck: Positive: neck supple, trachea midline. Negative: JVD/HJR, Masses - Labs and Meds CBC 07/30/17 Range/Units Unknown WBC 15.6 H (4.5-11.0) K/mm3 RBC 4.28 (3.65-5.03) M/mm3 Hgb 12.0 (11.8-15.2) gm/dl Hct 38.0 (35.5-45.6) % Plt Count 117 L (140-440) K/mm3 Comprehensive Metabolic Panel 07/30/17 Range/Units Unknown Sodium 146 H (137-145) mmol/L Potassium 4.8 (3.6-5.0) mmol/L Chloride 113.8 H (98-107) mmol/L Carbon Dioxide 18 L (22-30) mmol/L BUN 36 H (9-20) mg/dL Creatinine 1.8 H (0.8-1.5) mg/dL Glucose 177 H (75-100) mg/dL Calcium 6.9 L (8.4-10.2) mg/dL - Imaging and Cardiology EKG: image reviewed
--- NOTE | 2017-07-30 11:15 | Progress Note ---
Assessment and Plan Impression * Acute renal failure * Status post cardiac arrest * History of coronary artery disease * Hypertension * Mild metabolic acidosis * Hypotension Recommendations * History of creatinine seems to be slowly improving. His fractional excretion of sodium is 2.6%. He most likely has ATN. * He is currently nonoliguric No indication for dialysis at this time. * Serum sodium is rising and his bicarbonate level is also low. She'll change his IV fluid to half normal saline and add 50 and the cues of sodium bicarbonate * Continue IV hydration for now. * His urine did show 2+ dipstick protein and moderate blood. Follow-up results of vasculitis workup. * Hepatitis B and C both are negative * His acidosis is most likely secondary to lactic acidosis * CT scan of his abdomen showed bilateral kidney cysts as well as stones * Monitor fluid status and electrolytes closely. * Avoid nephrotoxins Subjective Date of service: 07/30/17 Principal diagnosis: out of hospital cardiac arrest Interval history: Patient remains in the ICU. Currently on 30% FiO2. Unresponsive. He just came off pressors. Currently on an amiodarone drip. Objective - Vital Signs Vital signs: Vital Signs - 12hr 07/29/17 07/29/17 07/29/17 23:18 23:21 23:23 Temperature 101.8 F H Pulse Rate 69 69 Pulse Rate [ Apical] Pulse Rate [ From Monitor] Pulse Rate [ Left Radial] Pulse Rate [ Right Radial] Respiratory 21 16 Rate Blood Pressure 141/85 141/85 O2 Sat by Pulse 97 98 Oximetry 07/29/17 07/29/17 07/29/17 23:30 23:41 23:51 Temperature Pulse Rate 69 69 67 Pulse Rate [ Apical] Pulse Rate [ From Monitor] Pulse Rate [ Left Radial] Pulse Rate [ Right Radial] Respiratory 21 22 19 Rate Blood Pressure 150/88 150/88 147/93 O2 Sat by Pulse 97 98 98 Oximetry 07/30/17 07/30/17 07/30/17 00:00 00:04 00:11 Temperature Pulse Rate 67 68 70 Pulse Rate [ Apical] Pulse Rate [ From Monitor] Pulse Rate [ Left Radial] Pulse Rate [ Right Radial] Respiratory 18 17 Rate Blood Pressure 141/87 150/88 147/93 O2 Sat by Pulse 97 97 98 Oximetry 07/30/17 07/30/17 07/30/17 00:21 00:30 00:41 Temperature Pulse Rate 65 64 67 Pulse Rate [ Apical] Pulse Rate [ From Monitor] Pulse Rate [ Left Radial] Pulse Rate [ Right Radial] Respiratory 17 17 17 Rate Blood Pressure 144/87 141/82 141/87 O2 Sat by Pulse 98 98 97 Oximetry 07/30/17 07/30/17 07/30/17 00:51 01:01 01:11 Temperature Pulse Rate 69 67 64 Pulse Rate [ Apical] Pulse Rate [ From Monitor] Pulse Rate [ Left Radial] Pulse Rate [ Right Radial] Respiratory 15 20 16 Rate Blood Pressure 129/82 151/79 144/87 O2 Sat by Pulse 98 98 98 Oximetry 07/30/17 07/30/17 07/30/17 01:21 01:30 01:41 Temperature Pulse Rate 69 69 66 Pulse Rate [ Apical] Pulse Rate [ From Monitor] Pulse Rate [ Left Radial] Pulse Rate [ Right Radial] Respiratory 18 17 17 Rate Blood Pressure 141/84 142/84 142/84 O2 Sat by Pulse 98 98 98 Oximetry 07/30/17 07/30/17 07/30/17 01:51 02:00 02:11 Temperature Pulse Rate 65 65 67 Pulse Rate [ Apical] Pulse Rate [ From Monitor] Pulse Rate [ Left Radial] Pulse Rate [ Right Radial] Respiratory 19 16 16 Rate Blood Pressure 140/86 134/73 134/73 O2 Sat by Pulse 98 98 98 Oximetry 07/30/17 07/30/17 07/30/17 02:21 02:30 02:41 Temperature Pulse Rate 63 64 68 Pulse Rate [ Apical] Pulse Rate [ From Monitor] Pulse Rate [ Left Radial] Pulse Rate [ Right Radial] Respiratory 17 17 20 Rate Blood Pressure 132/77 126/73 126/73 O2 Sat by Pulse 98 98 98 Oximetry 07/30/17 07/30/17 07/30/17 02:51 03:01 03:11 Temperature Pulse Rate 69 66 69 Pulse Rate [ Apical] Pulse Rate [ From Monitor] Pulse Rate [ Left Radial] Pulse Rate [ Right Radial] Respiratory 15 17 19 Rate Blood Pressure 140/80 141/75 141/75 O2 Sat by Pulse 98 98 98 Oximetry 07/30/17 07/30/17 07/30/17 03:21 03:30 03:39 Temperature 99.6 F Pulse Rate 72 68 Pulse Rate [ Apical] Pulse Rate [ From Monitor] Pulse Rate [ Left Radial] Pulse Rate [ Right Radial] Respiratory 21 17 Rate Blood Pressure 143/92 142/90 O2 Sat by Pulse 97 98 Oximetry 07/30/17 07/30/17 07/30/17 03:41 03:51 03:52 Temperature Pulse Rate 67 66 Pulse Rate [ 67 Apical] Pulse Rate [ From Monitor] Pulse Rate [ 67 Left Radial] Pulse Rate [ 67 Right Radial] Respiratory 17 17 21 Rate Blood Pressure 142/90 146/80 O2 Sat by Pulse 98 98 98 Oximetry 07/30/17 07/30/17 07/30/17 04:00 04:11 04:21 Temperature Pulse Rate 69 68 68 Pulse Rate [ Apical] Pulse Rate [ From Monitor] Pulse Rate [ Left Radial] Pulse Rate [ Right Radial] Respiratory 25 H 16 17 Rate Blood Pressure 150/87 150/87 149/84 O2 Sat by Pulse 98 97 96 Oximetry 07/30/17 07/30/17 07/30/17 04:30 04:41 04:51 Temperature Pulse Rate 74 71 78 Pulse Rate [ Apical] Pulse Rate [ From Monitor] Pulse Rate [ Left Radial] Pulse Rate [ Right Radial] Respiratory 19 17 12 Rate Blood Pressure 147/90 147/90 136/90 O2 Sat by Pulse 96 96 90 Oximetry 07/30/17 07/30/17 07/30/17 05:01 05:11 05:21 Temperature Pulse Rate 71 75 72 Pulse Rate [ Apical] Pulse Rate [ From Monitor] Pulse Rate [ Left Radial] Pulse Rate [ Right Radial] Respiratory 19 20 23 Rate Blood Pressure 136/90 136/90 136/90 O2 Sat by Pulse 95 95 94 Oximetry 07/30/17 07/30/17 07/30/17 05:30 05:41 05:51 Temperature Pulse Rate 78 72 67 Pulse Rate [ Apical] Pulse Rate [ From Monitor] Pulse Rate [ Left Radial] Pulse Rate [ Right Radial] Respiratory 31 H 24 18 Rate Blood Pressure 156/97 156/97 144/82 O2 Sat by Pulse 95 95 95 Oximetry 07/30/17 07/30/17 07/30/17 06:00 06:11 06:21 Temperature Pulse Rate 75 71 67 Pulse Rate [ Apical] Pulse Rate [ From Monitor] Pulse Rate [ Left Radial] Pulse Rate [ Right Radial] Respiratory 22 16 16 Rate Blood Pressure 147/87 147/87 137/83 O2 Sat by Pulse 95 95 96 Oximetry 07/30/17 07/30/17 07/30/17 06:30 06:41 06:51 Temperature Pulse Rate 72 77 70 Pulse Rate [ Apical] Pulse Rate [ From Monitor] Pulse Rate [ Left Radial] Pulse Rate [ Right Radial] Respiratory 18 24 19 Rate Blood Pressure 148/88 148/88 151/89 O2 Sat by Pulse 97 96 96 Oximetry 07/30/17 07/30/17 07/30/17 07:00 07:11 07:21 Temperature Pulse Rate 70 71 67 Pulse Rate [ Apical] Pulse Rate [ From Monitor] Pulse Rate [ Left Radial] Pulse Rate [ Right Radial] Respiratory 22 26 H 16 Rate Blood Pressure 154/87 154/87 150/86 O2 Sat by Pulse 97 97 96 Oximetry 07/30/17 07/30/17 07/30/17 07:30 07:41 07:51 Temperature Pulse Rate 69 73 69 Pulse Rate [ Apical] Pulse Rate [ From Monitor] Pulse Rate [ Left Radial] Pulse Rate [ Right Radial] Respiratory 19 18 16 Rate Blood Pressure 153/83 153/83 148/89 O2 Sat by Pulse 97 97 97 Oximetry 07/30/17 07/30/17 07/30/17 08:00 08:11 08:21 Temperature 100.4 F H Pulse Rate 69 71 67 Pulse Rate [ Apical] Pulse Rate [ 69 From Monitor] Pulse Rate [ Left Radial] Pulse Rate [ Right Radial] Respiratory 16 19 16 Rate Blood Pressure 146/85 146/85 146/85 O2 Sat by Pulse 97 96 96 Oximetry 07/30/17 07/30/17 07/30/17 08:30 08:41 08:45 Temperature Pulse Rate 68 80 74 Pulse Rate [ Apical] Pulse Rate [ From Monitor] Pulse Rate [ Left Radial] Pulse Rate [ Right Radial] Respiratory 17 27 H Rate Blood Pressure 143/78 143/78 169/95 O2 Sat by Pulse 96 97 96 Oximetry 07/30/17 07/30/17 07/30/17 08:51 09:00 09:11 Temperature Pulse Rate 72 71 71 Pulse Rate [ Apical] Pulse Rate [ From Monitor] Pulse Rate [ Left Radial] Pulse Rate [ Right Radial] Respiratory 20 16 20 Rate Blood Pressure 143/78 152/87 152/87 O2 Sat by Pulse 96 96 96 Oximetry 07/30/17 07/30/17 07/30/17 09:21 09:30 09:41 Temperature Pulse Rate 71 71 71 Pulse Rate [ Apical] Pulse Rate [ From Monitor] Pulse Rate [ Left Radial] Pulse Rate [ Right Radial] Respiratory 21 20 18 Rate Blood Pressure 146/88 148/92 143/83 O2 Sat by Pulse 96 97 97 Oximetry 07/30/17 07/30/17 07/30/17 09:51 10:00 10:11 Temperature Pulse Rate 74 75 74 Pulse Rate [ Apical] Pulse Rate [ From Monitor] Pulse Rate [ Left Radial] Pulse Rate [ Right Radial] Respiratory 22 20 20 Rate Blood Pressure 146/82 145/84 145/84 O2 Sat by Pulse 97 97 96 Oximetry - General Appearance General appearance: well-developed, well-nourished, appears stated age, intubated EENT: PERRL, mucous membranes moist Neck: no JVD, no thyromegaly, no carotid bruit, supple Respiratory: Present: Clear to Ascultation Cardiology: regular, normal heart rate, S1S2, no murmurs Gastrointestinal: normal, normoactive bowel sounds Integumentary: no rash, other (trace to 1+ edema) - Lab 07/30/17 Unknown 07/30/17 Unknown Most recent lab results Calcium 6.9 mg/dL (8.4-10.2) L 07/30/17 Unknown Urine Creatinine 58.4 mg/dL (0.1-20.0) H 07/28/17 16:20 Urine Sodium 94 mmol/L 07/28/17 16:20
[2017-07-30] MEDS: TYLENOL PO PRN (11:50)
--- NOTE | 2017-07-30 12:53 | Consultation ---
History of Present Illness Consult date: 07/30/17 History of present illness: patient seen and spoke to Dr. Sanderson... patient continues on the vent minimal gag reflex... Do's eyes are present and normal PERRL no spontaneous movement... Impression no evidence of recovery from severe anoxic encephalopathy went over the CT of the head from admission and it looks OK to me neuro event did not trigger this arrest full note dictated plan to check EEG will follow Thanks Past History Past Medical History: CAD Social history: no significant social history (denies smoking or drinking) Family history: no significant family history (negative for kidney disease) Medications and Allergies Allergies Allergy/AdvReac Type Severity Reaction Status Date / Time acetaminophen [From Vicodin] Allergy Unknown Verified 07/27/17 18:13 hydrocodone [From Vicodin] Allergy Unknown Verified 07/27/17 18:13 zolpidem [From Ambien] Allergy Unknown Verified 07/27/17 18:13 Home Medications Medication Instructions Recorded Confirmed Last Taken Type Aspirin [Aspirin BABY CHEW TAB] 1 tab PO QDAY 07/29/17 07/29/17 07/25/17 History AtorvaSTATin [Lipitor] 40 mg PO QHS 07/29/17 07/29/17 07/25/17 History Clopidogrel [Plavix] 75 mg PO QDAY 07/29/17 07/29/17 07/25/17 History ISOSORBIDE MONOnitrate [Imdur ER] 30 mg PO DAILY 07/29/17 07/29/17 07/25/17 History Spironolactone [Aldactone] 25 mg PO QDAY 07/29/17 07/29/17 07/25/17 History Tamsulosin HCl [Flomax] 1 tab PO QDAY 07/29/17 07/29/17 07/25/17 History Carvedilol [Coreg] 12.5 mg PO BID 07/30/17 07/30/17 07/27/17 09:00 History Sacubitril/Valsartan [Entresto 49 49 - 51 mg PO BID 07/30/17 07/30/17 07/27/17 09:00 History mg-51 mg Tablet] Active Meds: Active Medications Acetaminophen (Tylenol) 650 mg PO Q6HR PRN PRN Reason: Fever Last Admin: 07/30/17 11:50 Dose: 650 mg Albuterol (Proventil) 2.5 mg IH Q3HRT PRN PRN Reason: Shortness Of Breath Famotidine (Pepcid) 20 mg IV DAILY DANIEL Last Admin: 07/30/17 09:16 Dose: 20 mg Hydrophilic Ointment (Vaseline Lip Therapy) 1 applic TP Q2HR PRN PRN Reason: Dry Lips Vasopressin 20 unit/ Sodium (Chloride) 101 mls @ 9.09 mls/hr IV TITR DANIEL; 0.03 UNITS/MIN PRN Reason: Protocol Last Titration: 07/30/17 09:21 Dose: 0 units/min, 0 mls/hr Norepinephrine (Levophed Drip 4 Mg/Ns 250 Ml) 4 mg in 250 mls @ 7.5 mls/hr IV TITR DANIEL; 2 MCG/MIN PRN Reason: Protocol Amiodarone HCl 900 mg/ (Dextrose) 500 mls @ 33.33 mls/hr IV DIRECT DANIEL; 1 MG /MIN PRN Reason: Protocol Last Admin: 07/29/17 14:55 Dose: 0.5 mg/min, 16.66 mls/hr Sodium Bicarbonate 50 meq/ (Sodium Chloride) 1,050 mls @ 100 mls/hr IV DIRECT DANIEL Multi-Ingred Cream/Lotion/Oil/Oint (Artificial Tears Ophth Oint) 1 applic OU Q4HR PRN PRN Reason: Dry Eye(s) Ondansetron HCl (Zofran) 4 mg IV Q8H PRN PRN Reason: N/V unrelieved by Reglan Sodium Chloride (Nacl 0.9% 500 Ml) 1 ml IV DIRECT DANIEL Physical Examination - Vital Signs Vital Signs: Vital Signs Pulse Resp 28 L 12 07/27/17 18:02 07/27/17 18:02 Results - Laboratory Findings CBC and BMP: 07/30/17 Unknown 07/30/17 Unknown Abnormal Lab Findings: Abnormal Labs 07/27/17 07/27/17 07/27/17 18:26 18:26 18:26 WBC 15.6 H MCHC Plt Count 115 L Lymph % (Auto) [place] % (Auto) [place] # Seg Neutrophils % Lymphocytes % (Manual) 36.0 H Seg Neutrophils # Seg Neutrophils # Man 8.9 H Lymphocytes # (Manual) 5.6 H Monocytes # (Manual) 1.1 H PT 15.6 H INR 1.18 H APTT 38.5 H POC ABG pH POC ABG pCO2 POC ABG pO2 Sodium Potassium Chloride Carbon Dioxide 21 L BUN Creatinine Glucose 252 H POC Glucose Lactic Acid Calcium 7.7 L Total Creatine Kinase CK-MB (CK-2) CK-MB (CK-2) Rel Index Troponin T 0.090 H Triglycerides 190 H LDL Cholesterol Direct 34 L HDL Cholesterol 21 L Urine WBC (Auto) Urine Creatinine 07/27/17 07/27/17 07/27/17 19:02 19:25 21:43 WBC MCHC Plt Count Lymph % (Auto) [place] % (Auto) [place] # Seg Neutrophils % Lymphocytes % (Manual) Seg Neutrophils # Seg Neutrophils # Man Lymphocytes # (Manual) Monocytes # (Manual) PT INR APTT POC ABG pH 7.155 L POC ABG pCO2 47.7 H POC ABG pO2 229 H Sodium Potassium Chloride Carbon Dioxide BUN Creatinine Glucose POC Glucose Lactic Acid 6.00 H* Calcium Total Creatine Kinase CK-MB (CK-2) 4.8 H CK-MB (CK-2) Rel Index Troponin T 0.149 H* D Triglycerides LDL Cholesterol Direct HDL Cholesterol Urine WBC (Auto) Urine Creatinine 07/27/17 07/27/17 07/28/17 22:47 22:47 01:47 WBC MCHC Plt Count Lymph % (Auto) [place] % (Auto) [place] # Seg Neutrophils % Lymphocytes % (Manual) Seg Neutrophils # Seg Neutrophils # Man Lymphocytes # (Manual) Monocytes # (Manual) PT INR APTT POC ABG pH POC ABG pCO2 POC ABG pO2 Sodium Potassium Chloride Carbon Dioxide BUN Creatinine Glucose POC Glucose 199 H Lactic Acid 2.40 H* Calcium Total Creatine Kinase 222 H CK-MB (CK-2) 9.4 H CK-MB (CK-2) Rel Index 4.2 H Troponin T 0.852 H* D Triglycerides LDL Cholesterol Direct HDL Cholesterol Urine WBC (Auto) Urine Creatinine 07/28/17 07/28/17 07/28/17 05:29 05:44 05:44 WBC MCHC Plt Count Lymph % (Auto) [place] % (Auto) [place] # Seg Neutrophils % Lymphocytes % (Manual) Seg Neutrophils # Seg Neutrophils # Man Lymphocytes # (Manual) Monocytes # (Manual) PT INR APTT POC ABG pH 7.268 L POC ABG pCO2 34.8 L POC ABG pO2 Sodium 146 H Potassium 5.1 H D Chloride 113.3 H Carbon Dioxide 18 L BUN 29 H Creatinine 2.0 H D Glucose 194 H POC Glucose Lactic Acid 2.10 H* Calcium 6.8 L Total Creatine Kinase CK-MB (CK-2) CK-MB (CK-2) Rel Index Troponin T Triglycerides LDL Cholesterol Direct HDL Cholesterol Urine WBC (Auto) Urine Creatinine 07/28/17 07/28/17 07/28/17 05:44 06:30 16:00 WBC 16.9 H MCHC 31 L Plt Count Lymph % (Auto) 8.4 L [place] % (Auto) 7.5 H [place] # 1.3 H Seg Neutrophils % 84.1 H Lymphocytes % (Manual) Seg Neutrophils # 14.2 H Seg Neutrophils # Man Lymphocytes # (Manual) Monocytes # (Manual) PT INR APTT POC ABG pH POC ABG pCO2 POC ABG pO2 Sodium 146 H Potassium Chloride Carbon Dioxide BUN Creatinine 2.4 H Glucose POC Glucose Lactic Acid Calcium Total Creatine Kinase 434 H CK-MB (CK-2) 10.8 H CK-MB (CK-2) Rel Index Troponin T 0.521 H* D Triglycerides LDL Cholesterol Direct HDL Cholesterol Urine WBC (Auto) Urine Creatinine 07/28/17 07/28/17 07/29/17 16:20 16:20 04:02 WBC MCHC Plt Count Lymph % (Auto) [place] % (Auto) [place] # Seg Neutrophils % Lymphocytes % (Manual) Seg Neutrophils # Seg Neutrophils # Man Lymphocytes # (Manual) Monocytes # (Manual) PT INR APTT POC ABG pH 7.304 L POC ABG pCO2 31.6 L POC ABG pO2 Sodium Potassium Chloride Carbon Dioxide BUN Creatinine Glucose POC Glucose Lactic Acid Calcium Total Creatine Kinase CK-MB (CK-2) CK-MB (CK-2) Rel Index Troponin T Triglycerides LDL Cholesterol Direct HDL Cholesterol Urine WBC (Auto) 12.0 H Urine Creatinine 58.4 H 07/29/17 07/29/17 07/30/17 05:00 Unknown 04:07 WBC 14.4 H MCHC Plt Count 125 L Lymph % (Auto) [place] % (Auto) [place] # Seg Neutrophils % Lymphocytes % (Manual) Seg Neutrophils # Seg Neutrophils # Man Lymphocytes # (Manual) Monocytes # (Manual) PT INR APTT POC ABG pH 7.319 L POC ABG pCO2 27.8 L POC ABG pO2 121 H Sodium Potassium Chloride 111.7 H Carbon Dioxide 18 L BUN 37 H Creatinine 2.1 H Glucose 213 H POC Glucose Lactic Acid Calcium 6.9 L Total Creatine Kinase CK-MB (CK-2) CK-MB (CK-2) Rel Index Troponin T Triglycerides LDL Cholesterol Direct HDL Cholesterol Urine WBC (Auto) Urine Creatinine 07/30/17 07/30/17 Unknown Unknown WBC 15.6 H MCHC Plt Count 117 L Lymph % (Auto) [place] % (Auto) [place] # Seg Neutrophils % Lymphocytes % (Manual) Seg Neutrophils # Seg Neutrophils # Man Lymphocytes # (Manual) Monocytes # (Manual) PT INR APTT POC ABG pH POC ABG pCO2 POC ABG pO2 Sodium 146 H Potassium Chloride 113.8 H Carbon Dioxide 18 L BUN 36 H Creatinine 1.8 H Glucose 177 H POC Glucose Lactic Acid Calcium 6.9 L Total Creatine Kinase CK-MB (CK-2) CK-MB (CK-2) Rel Index Troponin T Triglycerides LDL Cholesterol Direct HDL Cholesterol Urine WBC (Auto) Urine Creatinine
[2017-07-30] MEDS ORDERED: SODIUM BICARBONATE FEEDTUBE PRN (13:17)
[2017-07-30] MEDS ORDERED: SIMPLE SYRUP FEEDTUBE PRN ×2 (13:17)
[2017-07-30] MEDS ORDERED: PANCREAZE DR 10,500 UNIT FEEDTUBE PRN (13:17)
[2017-07-30] MEDS ORDERED: NACL 0.45% 1000 ML 1,000 ML IV SCH (14:00)
--- NOTE | 2017-07-30 14:28 | Progress Note ---
Assessment and Plan y/o male with out of hospital cardiac arrest (Vfib/Vtach), with acute renal failure, anoxic encephalopathy and metabolic acidosis. Congestive heart failure with ejection fraction of 15-20%. 1. Continue vent support, wean FiO2 for sats >88% 2. Discontinue sedation to evaluate neurologic status. Off now for last 2 days. Still not awake. Continue no sedation for now. Needle consult ordered 3. Reviewed renal note. Follow up renal suggestions and work up. 4. Currently on amio drip, will continue 5. Remains on Vasopressin, wean for MAP >65 6. Consider cardiology elevation 7. Follow up AM labs 8. Monitor temperature, given anoxic encephalopathy and negative cultures recently, suspect central fever. CCT 31 minutes. Subjective Date of service: 07/30/17 Principal diagnosis: out of hospital cardiac arrest Interval history: No significant change remain unresponsive on mechanical ventilator. Family wishes to have neurological evaluation. Continue to have fevers culture data negative 2- 3 days ago Objective Vital Signs - 12hr 07/30/17 07/30/17 07/30/17 02:30 02:41 02:51 Temperature Pulse Rate 64 68 69 Pulse Rate [ Apical] Pulse Rate [ From Monitor] Pulse Rate [ Left Radial] Pulse Rate [ Right Radial] Respiratory 17 20 15 Rate Blood Pressure 126/73 126/73 140/80 O2 Sat by Pulse 98 98 98 Oximetry 07/30/17 07/30/17 07/30/17 03:01 03:11 03:21 Temperature Pulse Rate 66 69 72 Pulse Rate [ Apical] Pulse Rate [ From Monitor] Pulse Rate [ Left Radial] Pulse Rate [ Right Radial] Respiratory 17 19 21 Rate Blood Pressure 141/75 141/75 143/92 O2 Sat by Pulse 98 98 97 Oximetry 07/30/17 07/30/17 07/30/17 03:30 03:39 03:41 Temperature 99.6 F Pulse Rate 68 67 Pulse Rate [ Apical] Pulse Rate [ From Monitor] Pulse Rate [ Left Radial] Pulse Rate [ Right Radial] Respiratory 17 17 Rate Blood Pressure 142/90 142/90 O2 Sat by Pulse 98 98 Oximetry 07/30/17 07/30/17 07/30/17 03:51 03:52 04:00 Temperature Pulse Rate 66 69 Pulse Rate [ 67 Apical] Pulse Rate [ From Monitor] Pulse Rate [ 67 Left Radial] Pulse Rate [ 67 Right Radial] Respiratory 17 21 25 H Rate Blood Pressure 146/80 150/87 O2 Sat by Pulse 98 98 98 Oximetry 07/30/17 07/30/17 07/30/17 04:11 04:21 04:30 Temperature Pulse Rate 68 68 74 Pulse Rate [ Apical] Pulse Rate [ From Monitor] Pulse Rate [ Left Radial] Pulse Rate [ Right Radial] Respiratory 16 17 19 Rate Blood Pressure 150/87 149/84 147/90 O2 Sat by Pulse 97 96 96 Oximetry 07/30/17 07/30/17 07/30/17 04:41 04:51 05:01 Temperature Pulse Rate 71 78 71 Pulse Rate [ Apical] Pulse Rate [ From Monitor] Pulse Rate [ Left Radial] Pulse Rate [ Right Radial] Respiratory 17 12 19 Rate Blood Pressure 147/90 136/90 136/90 O2 Sat by Pulse 96 90 95 Oximetry 07/30/17 07/30/17 07/30/17 05:11 05:21 05:30 Temperature Pulse Rate 75 72 78 Pulse Rate [ Apical] Pulse Rate [ From Monitor] Pulse Rate [ Left Radial] Pulse Rate [ Right Radial] Respiratory 20 23 31 H Rate Blood Pressure 136/90 136/90 156/97 O2 Sat by Pulse 95 94 95 Oximetry 07/30/17 07/30/17 07/30/17 05:41 05:51 06:00 Temperature Pulse Rate 72 67 75 Pulse Rate [ Apical] Pulse Rate [ From Monitor] Pulse Rate [ Left Radial] Pulse Rate [ Right Radial] Respiratory 24 18 22 Rate Blood Pressure 156/97 144/82 147/87 O2 Sat by Pulse 95 95 95 Oximetry 07/30/17 07/30/17 07/30/17 06:11 06:21 06:30 Temperature Pulse Rate 71 67 72 Pulse Rate [ Apical] Pulse Rate [ From Monitor] Pulse Rate [ Left Radial] Pulse Rate [ Right Radial] Respiratory 16 16 18 Rate Blood Pressure 147/87 137/83 148/88 O2 Sat by Pulse 95 96 97 Oximetry 07/30/17 07/30/17 07/30/17 06:41 06:51 07:00 Temperature Pulse Rate 77 70 70 Pulse Rate [ Apical] Pulse Rate [ From Monitor] Pulse Rate [ Left Radial] Pulse Rate [ Right Radial] Respiratory 24 19 22 Rate Blood Pressure 148/88 151/89 154/87 O2 Sat by Pulse 96 96 97 Oximetry 07/30/17 07/30/17 07/30/17 07:11 07:21 07:30 Temperature Pulse Rate 71 67 69 Pulse Rate [ Apical] Pulse Rate [ From Monitor] Pulse Rate [ Left Radial] Pulse Rate [ Right Radial] Respiratory 26 H 16 19 Rate Blood Pressure 154/87 150/86 153/83 O2 Sat by Pulse 97 96 97 Oximetry 07/30/17 07/30/17 07/30/17 07:41 07:51 08:00 Temperature 100.4 F H Pulse Rate 73 69 69 Pulse Rate [ Apical] Pulse Rate [ 69 From Monitor] Pulse Rate [ Left Radial] Pulse Rate [ Right Radial] Respiratory 18 16 16 Rate Blood Pressure 153/83 148/89 146/85 O2 Sat by Pulse 97 97 97 Oximetry 07/30/17 07/30/17 07/30/17 08:11 08:21 08:30 Temperature Pulse Rate 71 67 68 Pulse Rate [ Apical] Pulse Rate [ From Monitor] Pulse Rate [ Left Radial] Pulse Rate [ Right Radial] Respiratory 19 16 17 Rate Blood Pressure 146/85 146/85 143/78 O2 Sat by Pulse 96 96 96 Oximetry 07/30/17 07/30/17 07/30/17 08:41 08:45 08:51 Temperature Pulse Rate 80 74 72 Pulse Rate [ Apical] Pulse Rate [ From Monitor] Pulse Rate [ Left Radial] Pulse Rate [ Right Radial] Respiratory 27 H 20 Rate Blood Pressure 143/78 169/95 143/78 O2 Sat by Pulse 97 96 96 Oximetry 07/30/17 07/30/17 07/30/17 09:00 09:11 09:21 Temperature Pulse Rate 71 71 71 Pulse Rate [ Apical] Pulse Rate [ From Monitor] Pulse Rate [ Left Radial] Pulse Rate [ Right Radial] Respiratory 16 20 21 Rate Blood Pressure 152/87 152/87 146/88 O2 Sat by Pulse 96 96 96 Oximetry 07/30/17 07/30/17 07/30/17 09:30 09:41 09:51 Temperature Pulse Rate 71 71 74 Pulse Rate [ Apical] Pulse Rate [ From Monitor] Pulse Rate [ Left Radial] Pulse Rate [ Right Radial] Respiratory 20 18 22 Rate Blood Pressure 148/92 143/83 146/82 O2 Sat by Pulse 97 97 97 Oximetry 07/30/17 07/30/17 07/30/17 10:00 10:11 10:21 Temperature Pulse Rate 75 74 77 Pulse Rate [ Apical] Pulse Rate [ From Monitor] Pulse Rate [ Left Radial] Pulse Rate [ Right Radial] Respiratory 20 20 17 Rate Blood Pressure 145/84 145/84 143/80 O2 Sat by Pulse 97 96 97 Oximetry 07/30/17 07/30/17 07/30/17 10:30 10:41 10:51 Temperature Pulse Rate 75 78 80 Pulse Rate [ Apical] Pulse Rate [ From Monitor] Pulse Rate [ Left Radial] Pulse Rate [ Right Radial] Respiratory 23 23 20 Rate Blood Pressure 143/84 143/84 135/84 O2 Sat by Pulse 97 96 96 Oximetry 07/30/17 07/30/17 07/30/17 11:00 11:11 11:21 Temperature Pulse Rate 77 78 76 Pulse Rate [ Apical] Pulse Rate [ From Monitor] Pulse Rate [ Left Radial] Pulse Rate [ Right Radial] Respiratory 20 20 17 Rate Blood Pressure 147/79 147/79 148/83 O2 Sat by Pulse 95 96 96 Oximetry 07/30/17 07/30/17 07/30/17 11:30 11:41 11:51 Temperature Pulse Rate 79 78 79 Pulse Rate [ Apical] Pulse Rate [ From Monitor] Pulse Rate [ Left Radial] Pulse Rate [ Right Radial] Respiratory 18 26 H 26 H Rate Blood Pressure 139/82 139/82 145/86 O2 Sat by Pulse 96 95 96 Oximetry 07/30/17 07/30/17 07/30/17 12:00 12:11 12:21 Temperature 101.4 F H Pulse Rate 88 77 76 Pulse Rate [ Apical] Pulse Rate [ 88 From Monitor] Pulse Rate [ Left Radial] Pulse Rate [ Right Radial] Respiratory 25 H 24 21 Rate Blood Pressure 158/83 158/83 152/85 O2 Sat by Pulse 95 96 96 Oximetry 07/30/17 07/30/17 07/30/17 12:30 12:41 12:51 Temperature Pulse Rate 75 74 76 Pulse Rate [ Apical] Pulse Rate [ From Monitor] Pulse Rate [ Left Radial] Pulse Rate [ Right Radial] Respiratory 19 22 17 Rate Blood Pressure 140/78 140/78 150/66 O2 Sat by Pulse 95 95 96 Oximetry 07/30/17 07/30/17 07/30/17 13:00 13:11 13:21 Temperature Pulse Rate 76 75 75 Pulse Rate [ Apical] Pulse Rate [ From Monitor] Pulse Rate [ Left Radial] Pulse Rate [ Right Radial] Respiratory 19 23 19 Rate Blood Pressure 148/83 148/83 143/82 O2 Sat by Pulse 95 95 95 Oximetry 07/30/17 13:30 Temperature Pulse Rate 75 Pulse Rate [ Apical] Pulse Rate [ From Monitor] Pulse Rate [ Left Radial] Pulse Rate [ Right Radial] Respiratory 21 Rate Blood Pressure 145/89 O2 Sat by Pulse 96 Oximetry Constitutional: comatose Eyes: non-icteric ENT: other (orally intubated and sedated) Neck: supple Effort: normal Ascultation: Bilateral: clear Percussion: Bilateral: not dull Cardiovascular: regular rate and rhythm Gastrointestinal: hypoactive bowel sounds Extremities: no edema CBC and BMP: 07/30/17 Unknown 07/30/17 Unknown ABG, PT/INR, D-dimer: ABG POC ABG pH 7.319 (7.35-7.45) L 07/30/17 04:07 POC ABG pCO2 27.8 (35-45) L 07/30/17 04:07 POC ABG pO2 121 (80-105) H 07/30/17 04:07 POC ABG HCO3 14.3 07/30/17 04:07 POC ABG Total CO2 15 07/30/17 04:07 POC ABG O2 Sat 98 07/30/17 04:07 PT/INR, D-dimer PT 15.6 Sec. (12.2-14.9) H 07/27/17 18:26 INR 1.18 (0.87-1.13) H 07/27/17 18:26 Abnormal lab findings: Abnormal Labs 07/27/17 07/27/17 07/27/17 18:26 18:26 18:26 WBC 15.6 H MCHC Plt Count 115 L Lymph % (Auto) Lyman % (Auto) Lyman # Seg Neutrophils % Lymphocytes % (Manual) 36.0 H Seg Neutrophils # Seg Neutrophils # Man 8.9 H Lymphocytes # (Manual) 5.6 H Monocytes # (Manual) 1.1 H PT 15.6 H INR 1.18 H APTT 38.5 H POC ABG pH POC ABG pCO2 POC ABG pO2 Sodium Potassium Chloride Carbon Dioxide 21 L BUN Creatinine Glucose 252 H POC Glucose Lactic Acid Calcium 7.7 L Total Creatine Kinase CK-MB (CK-2) CK-MB (CK-2) Rel Index Troponin T 0.090 H Triglycerides 190 H LDL Cholesterol Direct 34 L HDL Cholesterol 21 L Urine WBC (Auto) Urine Creatinine 07/27/17 07/27/17 07/27/17 19:02 19:25 21:43 WBC MCHC Plt Count Lymph % (Auto) Lyman % (Auto) Lyman # Seg Neutrophils % Lymphocytes % (Manual) Seg Neutrophils # Seg Neutrophils # Man Lymphocytes # (Manual) Monocytes # (Manual) PT INR APTT POC ABG pH 7.155 L POC ABG pCO2 47.7 H POC ABG pO2 229 H Sodium Potassium Chloride Carbon Dioxide BUN Creatinine Glucose POC Glucose Lactic Acid 6.00 H* Calcium Total Creatine Kinase CK-MB (CK-2) 4.8 H CK-MB (CK-2) Rel Index Troponin T 0.149 H* D Triglycerides LDL Cholesterol Direct HDL Cholesterol Urine WBC (Auto) Urine Creatinine 07/27/17 07/27/17 07/28/17 22:47 22:47 01:47 WBC MCHC Plt Count Lymph % (Auto) Lyman % (Auto) Lyman # Seg Neutrophils % Lymphocytes % (Manual) Seg Neutrophils # Seg Neutrophils # Man Lymphocytes # (Manual) Monocytes # (Manual) PT INR APTT POC ABG pH POC ABG pCO2 POC ABG pO2 Sodium Potassium Chloride Carbon Dioxide BUN Creatinine Glucose POC Glucose 199 H Lactic Acid 2.40 H* Calcium Total Creatine Kinase 222 H CK-MB (CK-2) 9.4 H CK-MB (CK-2) Rel Index 4.2 H Troponin T 0.852 H* D Triglycerides LDL Cholesterol Direct HDL Cholesterol Urine WBC (Auto) Urine Creatinine 07/28/17 07/28/17 07/28/17 05:29 05:44 05:44 WBC MCHC Plt Count Lymph % (Auto) Lyman % (Auto) Lyman # Seg Neutrophils % Lymphocytes % (Manual) Seg Neutrophils # Seg Neutrophils # Man Lymphocytes # (Manual) Monocytes # (Manual) PT INR APTT POC ABG pH 7.268 L POC ABG pCO2 34.8 L POC ABG pO2 Sodium 146 H Potassium 5.1 H D Chloride 113.3 H Carbon Dioxide 18 L BUN 29 H Creatinine 2.0 H D Glucose 194 H POC Glucose Lactic Acid 2.10 H* Calcium 6.8 L Total Creatine Kinase CK-MB (CK-2) CK-MB (CK-2) Rel Index Troponin T Triglycerides LDL Cholesterol Direct HDL Cholesterol Urine WBC (Auto) Urine Creatinine 07/28/17 07/28/17 07/28/17 05:44 06:30 16:00 WBC 16.9 H MCHC 31 L Plt Count Lymph % (Auto) 8.4 L Lyman % (Auto) 7.5 H Lyman # 1.3 H Seg Neutrophils % 84.1 H Lymphocytes % (Manual) Seg Neutrophils # 14.2 H Seg Neutrophils # Man Lymphocytes # (Manual) Monocytes # (Manual) PT INR APTT POC ABG pH POC ABG pCO2 POC ABG pO2 Sodium 146 H Potassium Chloride Carbon Dioxide BUN Creatinine 2.4 H Glucose POC Glucose Lactic Acid Calcium Total Creatine Kinase 434 H CK-MB (CK-2) 10.8 H CK-MB (CK-2) Rel Index Troponin T 0.521 H* D Triglycerides LDL Cholesterol Direct HDL Cholesterol Urine WBC (Auto) Urine Creatinine 07/28/17 07/28/17 07/29/17 16:20 16:20 04:02 WBC MCHC Plt Count Lymph % (Auto) Lyman % (Auto) Lyman # Seg Neutrophils % Lymphocytes % (Manual) Seg Neutrophils # Seg Neutrophils # Man Lymphocytes # (Manual) Monocytes # (Manual) PT INR APTT POC ABG pH 7.304 L POC ABG pCO2 31.6 L POC ABG pO2 Sodium Potassium Chloride Carbon Dioxide BUN Creatinine Glucose POC Glucose Lactic Acid Calcium Total Creatine Kinase CK-MB (CK-2) CK-MB (CK-2) Rel Index Troponin T Triglycerides LDL Cholesterol Direct HDL Cholesterol Urine WBC (Auto) 12.0 H Urine Creatinine 58.4 H 07/29/17 07/29/17 07/30/17 05:00 Unknown 04:07 WBC 14.4 H MCHC Plt Count 125 L Lymph % (Auto) Lyman % (Auto) Lyman # Seg Neutrophils % Lymphocytes % (Manual) Seg Neutrophils # Seg Neutrophils # Man Lymphocytes # (Manual) Monocytes # (Manual) PT INR APTT POC ABG pH 7.319 L POC ABG pCO2 27.8 L POC ABG pO2 121 H Sodium Potassium Chloride 111.7 H Carbon Dioxide 18 L BUN 37 H Creatinine 2.1 H Glucose 213 H POC Glucose Lactic Acid Calcium 6.9 L Total Creatine Kinase CK-MB (CK-2) CK-MB (CK-2) Rel Index Troponin T Triglycerides LDL Cholesterol Direct HDL Cholesterol Urine WBC (Auto) Urine Creatinine 07/30/17 07/30/17 Unknown Unknown WBC 15.6 H MCHC Plt Count 117 L Lymph % (Auto) Lyman % (Auto) Lyman # Seg Neutrophils % Lymphocytes % (Manual) Seg Neutrophils # Seg Neutrophils # Man Lymphocytes # (Manual) Monocytes # (Manual) PT INR APTT POC ABG pH POC ABG pCO2 POC ABG pO2 Sodium 146 H Potassium Chloride 113.8 H Carbon Dioxide 18 L BUN 36 H Creatinine 1.8 H Glucose 177 H POC Glucose Lactic Acid Calcium 6.9 L Total Creatine Kinase CK-MB (CK-2) CK-MB (CK-2) Rel Index Troponin T Triglycerides LDL Cholesterol Direct HDL Cholesterol Urine WBC (Auto) Urine Creatinine
[2017-07-30] MEDS: NACL 0.45% 1000 ML 1,000 ML with SODIUM BICARBONATE 50 MEQ IV SCH (15:14)
[2017-07-30] MEDS: CORDARONE 900 MG in D5W 482 ML IV SCH (19:52)
--- NOTE | 2017-07-31 04:43 | XRay Report ---
FINAL REPORT PROCEDURE: XR CHEST 1V AP TECHNIQUE: Chest radiograph anteroposterior view. CPT 88177 HISTORY: follow up respiratory failure COMPARISON: 07/30/2017 FINDINGS: Heart: Heart is enlarged Mediastinum/Vessels: Normal. Lungs/Pleural space: There is suboptimal inspiration. There is atelectasis at the left lung base. There is mild bilateral perihilar pulmonary edema. There are no effusions or pneumothoraces.. Bony thorax: No acute osseous abnormality. Life support devices: ET tube is in the mid trachea. NG tube is in the stomach.. IMPRESSION: Heart is enlarged There is suboptimal inspiration. There is atelectasis at the left lung base. There is mild bilateral perihilar pulmonary edema. There are no effusions or pneumothoraces.. ET tube is in the mid trachea. NG tube is in the stomach.. .
[2017-07-31] MEDS: NACL 0.45% 1000 ML 1,000 ML with SODIUM BICARBONATE 50 MEQ IV SCH ×3 (05:27→15:45)
--- NOTE | 2017-07-31 05:58 | Consultation ---
HISTORY OF PRESENT ILLNESS: This is a 71-year-old white male that was admitted to [facility] on 07/27/2017. This patient presented to the hospital initially with a history of a cardiac arrest and I spoke with Dr. Sanderson, he apparently was brought by an EMS, in and out of the hospital cardiac arrest. By verbal history, the patient collapsed, had a convulsive-like activity. Initial rhythm was ventricular tachycardia, ventricular fibrillation. He was resuscitated in the field and ____ CPR and got 300 mg amiodarone. EMS stated the patient was pulseless for about 40 minutes. When the patient was initially seen in the ED, his pupils were fixed and dilated. The patient was pulseless, his rhythm was pulseless electrical activity. He was given 2 grams of magnesium sulfate at that point and subsequently the patient's pulse was regained. He had a prior history of heart disease and had had a coronary artery bypass surgery, diabetes, hypertension, ischemic cardiomyopathy, ejection fraction of 20%. He has also had a history of congestive heart failure. Subsequent to admission, the patient has remained on the ventilator and is basically unarousable except to deep pain. My examination shows that he has no spontaneous movements. He has an occasional very faint respiration and on checking him, he has a slightly positive gag reflex, but this is very brief and very weak. He has full ocular movements to doll's eye maneuver, does not respond to verbal stimulation, does not have any seizure activity noted. Does not respond to pain spontaneously except a very deep pain and then a very feebly. I do not notice that he has any other reflexive movement such as a blink reflex, such as a grimace such as reactions to verbal stimulation or light stimulation. IMPRESSION: Profound anoxic encephalopathy post-arrest 2 days at this point. I have reviewed over a CT scan on admission and I did not see any evidence of anoxic damage on that CT and there was no bleed. I suspect that the agonal activity the patient had with his movements were more likely than not simply profound agonal movements, which are a vagal response rather than a seizure. I certainly see no seizures at present time. I will have an EEG ordered, this will be facilitated. We will speak to family members at next opportunity. I did speak with Dr. Sanderson about the patient's history and current care pattern. JOB# [id number] ERICH/NORIS
[2017-07-31 06:14] LABS: Hematocrit 38.4 % (35.5-45.6); Hemoglobin 12.3 gm/dl (11.8-15.2); Mean Corpuscular HGB Conc 32 % (32-34); Mean Corpuscular Hemoglobin 28 pg (28-32); Mean Corpuscular Volume 89 fl (84-94); Platelet Count 135 K/mm3 (140-440); Red Blood Count 4.33 M/mm3 (3.65-5.03)
[2017-07-31 06:35] LABS: Calcium 7.1 mg/dL (8.4-10.2)
[2017-07-31] MEDS ORDERED: VANCOMYCIN PHARMACY TO DOSE IV SCH (08:00)
[2017-07-31] MEDS: ZOSYN/NS 4.5GM/100ML 4.5 GM/100 ML VIAL IV SCH ×2 (08:05→14:47)
[2017-07-31] MEDS: TYLENOL PO PRN (09:23)
[2017-07-31] MEDS: PEPCID IV SCH (09:25)
--- NOTE | 2017-07-31 09:43 | Progress Note ---
Assessment and Plan Out of hospital cardiac arrest 40 minutes of ACLS before ROSC On IV amiodarone drip. Change to oral/NGT amiodarone Apparently, patient declined ICD 30 days ago Ischemic cardiomyopathy, LVEF 15-20% CAD s/p CABG 2006 at [place] ONE[place] to LAD; COREY to RI; SVG to PLOM; SVG to RV branch and PDA branch Non-specific troponin Not consistent with ACS Acute renal failure Recommendations: Supportive ICU care Neuro assessment and follow-up, neurology sees no change in clinical status Any further cardiac intervention will solely depend on neuro recovery Subjective Date of service: 07/31/17 Principal diagnosis: out of hospital cardiac arrest Interval history: Remains unresponsive observation Objective Vital Signs Temp Pulse Pulse Pulse Pulse Pulse Resp 07/31/17 08:47 75 07/31/17 08:20 74 21 07/31/17 08:10 70 20 07/31/17 08:00 99.0 F 80 80 26 H 07/31/17 07:50 71 16 07/31/17 07:40 74 22 07/31/17 07:30 72 17 07/31/17 07:20 73 20 07/31/17 07:10 73 20 07/31/17 07:00 73 23 07/31/17 06:50 73 18 07/31/17 06:40 75 24 07/31/17 06:30 73 21 07/31/17 06:20 73 19 07/31/17 06:10 72 22 07/31/17 06:00 75 21 07/31/17 05:50 73 19 07/31/17 05:40 74 21 07/31/17 05:30 74 27 H 07/31/17 05:20 73 23 07/31/17 05:10 73 17 07/31/17 05:00 73 16 07/31/17 04:50 72 16 07/31/17 04:40 73 18 07/31/17 04:30 82 07/31/17 04:20 85 19 07/31/17 04:10 75 19 07/31/17 04:03 75 07/31/17 04:00 75 76 76 76 21 07/31/17 03:50 74 26 H 07/31/17 03:40 74 20 07/31/17 03:33 97.9 F 07/31/17 03:30 75 22 07/31/17 03:20 75 18 12/24/17 03:10 87 31 H 07/31/17 03:00 73 19 07/31/17 02:50 79 18 07/31/17 02:40 75 21 07/31/17 02:30 75 17 07/31/17 02:20 74 24 07/31/17 02:10 74 20 07/31/17 02:00 76 23 07/31/17 01:50 75 21 07/31/17 01:40 77 16 07/31/17 01:30 79 24 07/31/17 01:20 75 20 07/31/17 01:10 77 18 07/31/17 01:00 76 22 07/31/17 00:50 77 20 07/31/17 00:40 76 17 07/31/17 00:30 77 25 H 07/31/17 00:20 77 18 07/31/17 00:10 79 18 07/31/17 00:00 99.5 F 75 17 07/30/17 23:54 79 21 07/30/17 23:50 77 17 07/30/17 23:45 78 78 78 78 17 07/30/17 23:42 76 17 07/30/17 23:40 77 18 07/30/17 23:37 77 07/30/17 23:30 77 23 07/30/17 23:21 80 27 H 07/30/17 23:20 79 22 07/30/17 23:10 76 19 07/30/17 23:00 75 15 07/30/17 22:50 74 21 07/30/17 22:40 78 17 07/30/17 22:30 76 20 07/30/17 22:20 76 18 07/30/17 22:10 77 25 H 07/30/17 22:00 79 18 07/30/17 21:50 75 24 07/30/17 21:40 77 26 H 07/30/17 21:30 78 19 07/30/17 21:20 76 16 07/30/17 21:10 76 18 07/30/17 21:00 77 16 07/30/17 20:50 77 17 07/30/17 20:40 74 21 07/30/17 20:30 78 25 H 07/30/17 20:20 77 22 07/30/17 20:10 78 22 07/30/17 20:00 78 22 07/30/17 19:56 99.7 F H 07/30/17 19:50 79 21 07/30/17 19:45 79 07/30/17 19:40 80 11 L 07/30/17 19:30 79 24 07/30/17 19:20 76 19 07/30/17 19:10 75 20 07/30/17 19:00 76 19 07/30/17 18:50 77 20 07/30/17 18:40 77 20 07/30/17 18:30 78 22 07/30/17 18:20 77 18 07/30/17 18:10 76 17 07/30/17 18:00 74 17 07/30/17 17:50 77 20 07/30/17 17:40 77 20 07/30/17 17:37 78 07/30/17 17:30 79 25 H 07/30/17 17:20 77 19 07/30/17 17:10 75 18 07/30/17 17:00 74 18 07/30/17 16:51 75 19 07/30/17 16:41 75 22 07/30/17 16:31 80 19 07/30/17 16:21 73 22 07/30/17 16:11 75 19 07/30/17 16:00 99.8 F H 74 74 25 H 07/30/17 15:51 76 21 07/30/17 15:41 73 20 07/30/17 15:31 75 22 07/30/17 15:21 73 16 07/30/17 15:11 75 20 07/30/17 15:00 74 17 07/30/17 14:50 75 15 07/30/17 14:41 74 24 17 14:31 78 16 07/30/17 14:21 74 18 07/30/17 14:10 71 18 07/30/17 14:00 72 19 07/30/17 13:51 74 18 07/30/17 13:41 74 24 17 13:30 75 21 07/30/17 13:21 75 19 07/30/17 13:11 75 23 07/30/17 13:00 76 19 07/30/17 12:51 76 17 07/30/17 12:41 74 22 07/30/17 12:30 75 19 07/30/17 12:21 76 21 07/30/17 12:11 77 24 07/30/17 12:00 101.4 F H 74 88 25 H 07/30/17 11:51 79 26 H 07/30/17 11:41 78 26 H 07/30/17 11:30 79 18 07/30/17 11:21 76 17 07/30/17 11:11 78 20 07/30/17 11:00 77 20 07/30/17 10:51 80 20 07/30/17 10:41 78 23 07/30/17 10:30 75 23 07/30/17 10:21 77 17 07/30/17 10:11 74 20 07/30/17 10:00 75 20 07/30/17 09:51 74 22 BP Pulse Ox 07/31/17 08:47 159/73 95 07/31/17 08:20 151/88 95 07/31/17 08:10 151/88 95 07/31/17 08:00 143/95 95 07/31/17 07:50 143/95 95 07/31/17 07:40 143/95 95 07/31/17 07:30 143/95 95 07/31/17 07:20 143/95 96 07/31/17 07:10 143/95 95 07/31/17 07:00 151/88 95 07/31/17 06:50 143/95 95 07/31/17 06:40 143/95 95 07/31/17 06:30 143/95 94 07/31/17 06:20 143/95 95 07/31/17 06:10 143/95 94 07/31/17 06:00 153/91 95 07/31/17 05:50 153/91 95 07/31/17 05:40 153/91 95 07/31/17 05:30 153/91 94 07/31/17 05:20 153/91 94 07/31/17 05:10 153/91 95 07/31/17 05:00 153/91 95 07/31/17 04:50 153/91 95 07/31/17 04:40 153/91 94 07/31/17 04:30 153/91 95 07/31/17 04:20 153/91 93 07/31/17 04:10 153/91 94 07/31/17 04:03 153/91 94 12/24/17 04:00 153/91 94 07/31/17 03:50 149/87 94 07/31/17 03:40 149/87 94 07/31/17 03:33 07/31/17 03:30 149/87 94 07/31/17 03:20 149/87 94 07/31/17 03:10 149/87 94 07/31/17 03:00 152/92 95 07/31/17 02:50 152/92 95 07/31/17 02:40 152/92 95 07/31/17 02:30 152/92 95 07/31/17 02:20 152/92 95 07/31/17 02:10 152/92 95 07/31/17 02:00 149/92 93 07/31/17 01:50 152/92 94 07/31/17 01:40 152/92 94 07/31/17 01:30 152/92 94 07/31/17 01:20 152/92 95 07/31/17 01:10 152/92 95 07/31/17 01:00 155/89 95 07/31/17 00:50 155/89 95 07/31/17 00:40 155/89 95 07/31/17 00:30 155/89 95 07/31/17 00:20 155/89 95 07/31/17 00:10 155/89 95 07/31/17 00:00 155/89 95 07/30/17 23:54 147/91 95 07/30/17 23:50 147/91 96 17 23:45 99 17 23:42 147/91 95 17 23:40 147/91 95 17 23:37 147/91 95 17 23:30 147/91 94 17 23:21 147/91 95 17 23:20 147/91 91 17 23:10 147/91 95 17 23:00 149/95 95 17 22:50 149/95 94 17 22:40 149/95 95 17 22:30 149/95 94 17 22:20 149/95 94 17 22:10 149/95 94 17 22:00 148/87 94 17 21:50 148/87 94 17 21:40 148/87 95 17 21:30 148/87 95 17 21:20 148/87 96 17 21:10 148/87 95 17 21:00 148/87 94 17 20:50 158/87 93 17 20:40 158/87 94 17 20:30 158/87 94 17 20:20 158/87 94 17 20:10 158/87 93 17 20:00 152/92 93 17 19:56 07/30/17 19:50 152/92 94 17 19:45 152/92 93 17 19:40 152/92 93 17 19:30 152/92 94 17 19:20 175/105 95 17 19:10 166/97 95 17 19:00 169/81 96 17 18:50 169/81 95 17 18:40 169/81 95 17 18:30 155/100 95 17 18:20 155/100 96 17 18:10 159/99 95 17 18:00 158/89 96 17 17:50 158/89 95 17 17:40 168/97 95 17 17:37 167/97 95 17 17:30 158/108 95 17 17:20 158/108 96 17 17:10 96 17 17:00 170/95 96 17 16:51 170/95 96 17 16:41 165/97 95 17 16:31 162/103 95 17 16:21 159/93 95 17 16:11 158/98 95 17 16:00 164/98 95 17 15:51 159/96 95 17 15:41 158/98 95 07/30/17 15:31 158/98 95 07/30/17 15:21 154/95 95 07/30/17 15:11 153/91 95 07/30/17 15:00 153/91 96 07/30/17 14:50 149/88 96 07/30/17 14:41 149/88 96 07/30/17 14:31 149/88 96 07/30/17 14:21 143/87 95 07/30/17 14:10 144/84 94 07/30/17 14:00 144/84 94 07/30/17 13:51 145/81 96 07/30/17 13:41 145/89 95 07/30/17 13:30 145/89 96 07/30/17 13:21 143/82 95 07/30/17 13:11 148/83 95 07/30/17 13:00 148/83 95 07/30/17 12:51 150/66 96 07/30/17 12:41 140/78 95 07/30/17 12:30 140/78 95 07/30/17 12:21 152/85 96 07/30/17 12:11 158/83 96 07/30/17 12:00 145/87 96 07/30/17 11:51 145/86 96 07/30/17 11:41 139/82 95 07/30/17 11:30 139/82 96 07/30/17 11:21 148/83 96 07/30/17 11:11 147/79 96 07/30/17 11:00 147/79 95 07/30/17 10:51 135/84 96 07/30/17 10:41 143/84 96 07/30/17 10:30 143/84 97 07/30/17 10:21 143/80 97 07/30/17 10:11 145/84 96 07/30/17 10:00 145/84 97 07/30/17 09:51 146/82 97 - Physical Examination Narrative exam: Physical examination Vitals reviewed GEN: Ventilated HEENT: Carotids 2+ NECK: Supple CVS: S1 and S2 heard no significant murmur or gallop noted LUNGS/CHEST: Normal auscultation ABD: Soft nontender Extremities: No edema noted normal color NEURO: No response to verbal or pain stimuli General: Other (intubated on the vent) Neck: Positive: neck supple, trachea midline. Negative: JVD/HJR, Masses - Labs and Meds CBC 07/31/17 Range/Units 05:00 WBC 18.5 H (4.5-11.0) K/mm3 RBC 4.33 (3.65-5.03) M/mm3 Hgb 12.3 (11.8-15.2) gm/dl Hct 38.4 (35.5-45.6) % Plt Count 135 L (140-440) K/mm3 Comprehensive Metabolic Panel 07/31/17 Range/Units 05:00 Sodium 148 H (137-145) mmol/L Potassium 4.2 (3.6-5.0) mmol/L Chloride 112.8 H (98-107) mmol/L Carbon Dioxide 20 L (22-30) mmol/L BUN 33 H (9-20) mg/dL Creatinine 1.6 H (0.8-1.5) mg/dL Glucose 188 H (75-100) mg/dL Calcium 7.1 L (8.4-10.2) mg/dL - Imaging and Cardiology EKG: image reviewed
[2017-07-31] MEDS ORDERED: VANCOMYCIN 1,500 MG in NACL 0.9% 500 ML 500 ML IV NR (10:00)
[2017-07-31] MEDS ORDERED: HEPARIN SUB-Q SCH (10:00)
[2017-07-31] MEDS: CORDARONE PO SCH ×2 (10:57→21:30)
--- NOTE | 2017-07-31 11:15 | Progress Note ---
Assessment and Plan Impression * Acute renal failure * Status post cardiac arrest * History of coronary artery disease * Hypertension * Mild metabolic acidosis * Hypotension Recommendations * His serum creatinine is improving. His fractional excretion of sodium is 2.6%. He most likely has ATN. * He is currently nonoliguric No indication for dialysis at this time. * Serum sodium is rising . Add free water to the NG tube. Bicarbonate level is also improving. Reduce bicarbonate drip. * Continue IV hydration for now. * His urine did show 2+ dipstick protein and moderate blood. Follow-up results of vasculitis workup. * Hepatitis B and C both are negative * His acidosis is most likely secondary to lactic acidosis * CT scan of his abdomen showed bilateral kidney cysts as well as stones * Monitor fluid status and electrolytes closely. * Avoid nephrotoxins * His blood pressure is noted to be elevated. Shall add carvedilol present antihypertensive regimen Subjective Date of service: 07/31/17 Principal diagnosis: out of hospital cardiac arrest Interval history: Patient remains in ICU. He is currently on 25% FiO2. His blood pressure noted to be elevated. He currently has an NG tube in place. Objective - Vital Signs Vital signs: Vital Signs - 12hr 07/30/17 07/30/17 07/30/17 23:20 23:21 23:30 Temperature Pulse Rate 79 80 77 Pulse Rate [ Apical] Pulse Rate [ From Monitor] Pulse Rate [ Left Radial] Pulse Rate [ Right Radial] Respiratory 22 27 H 23 Rate Blood Pressure 147/91 147/91 147/91 O2 Sat by Pulse 91 95 94 Oximetry 07/30/17 07/30/17 07/30/17 23:37 23:40 23:42 Temperature Pulse Rate 77 77 76 Pulse Rate [ Apical] Pulse Rate [ From Monitor] Pulse Rate [ Left Radial] Pulse Rate [ Right Radial] Respiratory 18 17 Rate Blood Pressure 147/91 147/91 147/91 O2 Sat by Pulse 95 95 95 Oximetry 07/30/17 07/30/17 07/30/17 23:45 23:50 23:54 Temperature Pulse Rate 77 79 Pulse Rate [ 78 Apical] Pulse Rate [ 78 From Monitor] Pulse Rate [ 78 Left Radial] Pulse Rate [ 78 Right Radial] Respiratory 17 17 21 Rate Blood Pressure 147/91 147/91 O2 Sat by Pulse 99 96 95 Oximetry 07/31/17 07/31/17 07/31/17 00:00 00:10 00:20 Temperature 99.5 F Pulse Rate 75 79 77 Pulse Rate [ Apical] Pulse Rate [ From Monitor] Pulse Rate [ Left Radial] Pulse Rate [ Right Radial] Respiratory 17 18 18 Rate Blood Pressure 155/89 155/89 155/89 O2 Sat by Pulse 95 95 95 Oximetry 07/31/17 07/31/17 07/31/17 00:30 00:40 00:50 Temperature Pulse Rate 77 76 77 Pulse Rate [ Apical] Pulse Rate [ From Monitor] Pulse Rate [ Left Radial] Pulse Rate [ Right Radial] Respiratory 25 H 17 20 Rate Blood Pressure 155/89 155/89 155/89 O2 Sat by Pulse 95 95 95 Oximetry 07/31/17 07/31/17 07/31/17 01:00 01:10 01:20 Temperature Pulse Rate 76 77 75 Pulse Rate [ Apical] Pulse Rate [ From Monitor] Pulse Rate [ Left Radial] Pulse Rate [ Right Radial] Respiratory 22 18 20 Rate Blood Pressure 155/89 152/92 152/92 O2 Sat by Pulse 95 95 95 Oximetry 07/31/17 07/31/17 07/31/17 01:30 01:40 01:50 Temperature Pulse Rate 79 77 75 Pulse Rate [ Apical] Pulse Rate [ From Monitor] Pulse Rate [ Left Radial] Pulse Rate [ Right Radial] Respiratory 24 16 21 Rate Blood Pressure 152/92 152/92 152/92 O2 Sat by Pulse 94 94 94 Oximetry 07/31/17 07/31/17 07/31/17 02:00 02:10 02:20 Temperature Pulse Rate 76 74 74 Pulse Rate [ Apical] Pulse Rate [ From Monitor] Pulse Rate [ Left Radial] Pulse Rate [ Right Radial] Respiratory 23 20 24 Rate Blood Pressure 149/92 152/92 152/92 O2 Sat by Pulse 93 95 95 Oximetry 07/31/17 07/31/17 07/31/17 02:30 02:40 02:50 Temperature Pulse Rate 75 75 79 Pulse Rate [ Apical] Pulse Rate [ From Monitor] Pulse Rate [ Left Radial] Pulse Rate [ Right Radial] Respiratory 17 21 18 Rate Blood Pressure 152/92 152/92 152/92 O2 Sat by Pulse 95 95 95 Oximetry 07/31/17 07/31/17 07/31/17 03:00 03:10 03:20 Temperature Pulse Rate 73 87 75 Pulse Rate [ Apical] Pulse Rate [ From Monitor] Pulse Rate [ Left Radial] Pulse Rate [ Right Radial] Respiratory 19 31 H 18 Rate Blood Pressure 152/92 149/87 149/87 O2 Sat by Pulse 95 94 94 Oximetry 07/31/17 07/31/17 07/31/17 03:30 03:33 03:40 Temperature 97.9 F Pulse Rate 75 74 Pulse Rate [ Apical] Pulse Rate [ From Monitor] Pulse Rate [ Left Radial] Pulse Rate [ Right Radial] Respiratory 22 20 Rate Blood Pressure 149/87 149/87 O2 Sat by Pulse 94 94 Oximetry 07/31/17 07/31/17 07/31/17 03:50 04:00 04:03 Temperature Pulse Rate 74 75 75 Pulse Rate [ 76 Apical] Pulse Rate [ 76 From Monitor] Pulse Rate [ Left Radial] Pulse Rate [ 76 Right Radial] Respiratory 26 H 21 Rate Blood Pressure 149/87 153/91 153/91 O2 Sat by Pulse 94 94 94 Oximetry 07/31/17 07/31/17 07/31/17 04:10 04:20 04:30 Temperature Pulse Rate 75 85 82 Pulse Rate [ Apical] Pulse Rate [ From Monitor] Pulse Rate [ Left Radial] Pulse Rate [ Right Radial] Respiratory 19 19 Rate Blood Pressure 153/91 153/91 153/91 O2 Sat by Pulse 94 93 95 Oximetry 07/31/17 07/31/17 07/31/17 04:40 04:50 05:00 Temperature Pulse Rate 73 72 73 Pulse Rate [ Apical] Pulse Rate [ From Monitor] Pulse Rate [ Left Radial] Pulse Rate [ Right Radial] Respiratory 18 16 16 Rate Blood Pressure 153/91 153/91 153/91 O2 Sat by Pulse 94 95 95 Oximetry 07/31/17 07/31/17 07/31/17 05:10 05:20 05:30 Temperature Pulse Rate 73 73 74 Pulse Rate [ Apical] Pulse Rate [ From Monitor] Pulse Rate [ Left Radial] Pulse Rate [ Right Radial] Respiratory 17 23 27 H Rate Blood Pressure 153/91 153/91 153/91 O2 Sat by Pulse 95 94 94 Oximetry 07/31/17 07/31/17 07/31/17 05:40 05:50 06:00 Temperature Pulse Rate 74 73 75 Pulse Rate [ Apical] Pulse Rate [ From Monitor] Pulse Rate [ Left Radial] Pulse Rate [ Right Radial] Respiratory 21 19 21 Rate Blood Pressure 153/91 153/91 153/91 O2 Sat by Pulse 95 95 95 Oximetry 07/31/17 07/31/17 07/31/17 06:10 06:20 06:30 Temperature Pulse Rate 72 73 73 Pulse Rate [ Apical] Pulse Rate [ From Monitor] Pulse Rate [ Left Radial] Pulse Rate [ Right Radial] Respiratory 22 19 21 Rate Blood Pressure 143/95 143/95 143/95 O2 Sat by Pulse 94 95 94 Oximetry 07/31/17 07/31/17 07/31/17 06:40 06:50 07:00 Temperature Pulse Rate 75 73 73 Pulse Rate [ Apical] Pulse Rate [ From Monitor] Pulse Rate [ Left Radial] Pulse Rate [ Right Radial] Respiratory 24 18 23 Rate Blood Pressure 143/95 143/95 151/88 O2 Sat by Pulse 95 95 95 Oximetry 07/31/17 07/31/17 07/31/17 07:10 07:20 07:30 Temperature Pulse Rate 73 73 72 Pulse Rate [ Apical] Pulse Rate [ From Monitor] Pulse Rate [ Left Radial] Pulse Rate [ Right Radial] Respiratory 20 20 17 Rate Blood Pressure 143/95 143/95 143/95 O2 Sat by Pulse 95 96 95 Oximetry 07/31/17 07/31/17 07/31/17 07:40 07:50 08:00 Temperature 99.0 F Pulse Rate 74 71 80 Pulse Rate [ Apical] Pulse Rate [ 80 From Monitor] Pulse Rate [ Left Radial] Pulse Rate [ Right Radial] Respiratory 22 16 26 H Rate Blood Pressure 143/95 143/95 143/95 O2 Sat by Pulse 95 95 95 Oximetry 07/31/17 07/31/17 07/31/17 08:10 08:20 08:30 Temperature Pulse Rate 70 74 68 Pulse Rate [ Apical] Pulse Rate [ From Monitor] Pulse Rate [ Left Radial] Pulse Rate [ Right Radial] Respiratory 20 21 20 Rate Blood Pressure 151/88 151/88 151/88 O2 Sat by Pulse 95 95 95 Oximetry 07/31/17 07/31/17 07/31/17 08:40 08:47 08:50 Temperature Pulse Rate 74 75 74 Pulse Rate [ Apical] Pulse Rate [ From Monitor] Pulse Rate [ Left Radial] Pulse Rate [ Right Radial] Respiratory 22 15 Rate Blood Pressure 151/88 159/73 159/73 O2 Sat by Pulse 95 95 95 Oximetry 07/31/17 07/31/17 07/31/17 09:00 09:10 09:20 Temperature Pulse Rate 82 74 72 Pulse Rate [ Apical] Pulse Rate [ From Monitor] Pulse Rate [ Left Radial] Pulse Rate [ Right Radial] Respiratory 29 H 19 24 Rate Blood Pressure 159/73 176/101 176/101 O2 Sat by Pulse 95 94 95 Oximetry 07/31/17 07/31/17 07/31/17 09:30 09:40 09:50 Temperature Pulse Rate 72 72 73 Pulse Rate [ Apical] Pulse Rate [ From Monitor] Pulse Rate [ Left Radial] Pulse Rate [ Right Radial] Respiratory 21 16 23 Rate Blood Pressure 176/101 195/93 195/93 O2 Sat by Pulse 95 95 95 Oximetry 07/31/17 07/31/17 07/31/17 10:00 10:10 10:20 Temperature Pulse Rate 72 71 71 Pulse Rate [ Apical] Pulse Rate [ From Monitor] Pulse Rate [ Left Radial] Pulse Rate [ Right Radial] Respiratory 19 17 21 Rate Blood Pressure 195/93 184/91 184/91 O2 Sat by Pulse 95 96 95 Oximetry 07/31/17 07/31/17 07/31/17 10:30 10:40 10:50 Temperature Pulse Rate 68 71 69 Pulse Rate [ Apical] Pulse Rate [ From Monitor] Pulse Rate [ Left Radial] Pulse Rate [ Right Radial] Respiratory 17 22 22 Rate Blood Pressure 184/91 184/91 184/91 O2 Sat by Pulse 95 95 95 Oximetry 07/31/17 11:00 Temperature Pulse Rate 69 Pulse Rate [ Apical] Pulse Rate [ From Monitor] Pulse Rate [ Left Radial] Pulse Rate [ Right Radial] Respiratory 21 Rate Blood Pressure 201/90 O2 Sat by Pulse 95 Oximetry - General Appearance General appearance: well-developed, well-nourished, appears stated age, intubated EENT: PERRL, mucous membranes moist Neck: no JVD, no thyromegaly Respiratory: Present: Clear to Ascultation Cardiology: regular, normal heart rate, S1S2, no murmurs Gastrointestinal: normal, normoactive bowel sounds Integumentary: other (1+ edema) - Lab 07/31/17 05:00 07/31/17 05:00 Most recent lab results Calcium 7.1 mg/dL (8.4-10.2) L 07/31/17 05:00 Urine Creatinine 58.4 mg/dL (0.1-20.0) H 07/28/17 16:20 Urine Sodium 94 mmol/L 12/21/17 16:20
--- NOTE | 2017-07-31 13:35 | Progress Note ---
Assessment and Plan y/o male with out of hospital cardiac arrest (Vfib/Vtach), with acute renal failure, anoxic encephalopathy and metabolic acidosis. Congestive heart failure with ejection fraction of 15-20%. Blood pressure is elevated 1. Continue vent support, wean FiO2 for sats >88% 2. Discontinue sedation to evaluate neurologic status. Off now for last 2 days. Still not awake. Continue no sedation for now. Needle consult ordered 3. Reviewed renal note. Follow up renal suggestions and work up. 4. Currently on amio drip, 5. Remains off Vasopressin, 6. Consider cardiology elevation 7. Follow seems to have increased today 8. Monitor temperature, given anoxic encephalopathy and negative cultures recently, suspect central fever. 9. Monitor blood pressure, controlled per attending CCT 31 minutes. Subjective Date of service: 07/31/17 Principal diagnosis: out of hospital cardiac arrest Interval history: No significant change remain unresponsive on mechanical ventilator. Family wishes to have neurological evaluation. No longer has fevers culture data negative 2- 3 days ago Objective Vital Signs - 12hr 07/31/17 07/31/17 07/31/17 01:30 01:40 01:50 Temperature Pulse Rate 79 77 75 Pulse Rate [ Apical] Pulse Rate [ From Monitor] Pulse Rate [ Right Radial] Respiratory 24 16 21 Rate Blood Pressure 152/92 152/92 152/92 O2 Sat by Pulse 94 94 94 Oximetry 07/31/17 07/31/17 07/31/17 02:00 02:10 02:20 Temperature Pulse Rate 76 74 74 Pulse Rate [ Apical] Pulse Rate [ From Monitor] Pulse Rate [ Right Radial] Respiratory 23 20 24 Rate Blood Pressure 149/92 152/92 152/92 O2 Sat by Pulse 93 95 95 Oximetry 07/31/17 07/31/17 07/31/17 02:30 02:40 02:50 Temperature Pulse Rate 75 75 79 Pulse Rate [ Apical] Pulse Rate [ From Monitor] Pulse Rate [ Right Radial] Respiratory 17 21 18 Rate Blood Pressure 152/92 152/92 152/92 O2 Sat by Pulse 95 95 95 Oximetry 07/31/17 07/31/17 07/31/17 03:00 03:10 03:20 Temperature Pulse Rate 73 87 75 Pulse Rate [ Apical] Pulse Rate [ From Monitor] Pulse Rate [ Right Radial] Respiratory 19 31 H 18 Rate Blood Pressure 152/92 149/87 149/87 O2 Sat by Pulse 95 94 94 Oximetry 07/31/17 07/31/17 07/31/17 03:30 03:33 03:40 Temperature 97.9 F Pulse Rate 75 74 Pulse Rate [ Apical] Pulse Rate [ From Monitor] Pulse Rate [ Right Radial] Respiratory 22 20 Rate Blood Pressure 149/87 149/87 O2 Sat by Pulse 94 94 Oximetry 07/31/17 07/31/17 07/31/17 03:50 04:00 04:03 Temperature Pulse Rate 74 75 75 Pulse Rate [ 76 Apical] Pulse Rate [ 76 From Monitor] Pulse Rate [ 76 Right Radial] Respiratory 26 H 21 Rate Blood Pressure 149/87 153/91 153/91 O2 Sat by Pulse 94 94 94 Oximetry 07/31/17 07/31/17 07/31/17 04:10 04:20 04:30 Temperature Pulse Rate 75 85 82 Pulse Rate [ Apical] Pulse Rate [ From Monitor] Pulse Rate [ Right Radial] Respiratory 19 19 Rate Blood Pressure 153/91 153/91 153/91 O2 Sat by Pulse 94 93 95 Oximetry 07/31/17 07/31/17 07/31/17 04:40 04:50 05:00 Temperature Pulse Rate 73 72 73 Pulse Rate [ Apical] Pulse Rate [ From Monitor] Pulse Rate [ Right Radial] Respiratory 18 16 16 Rate Blood Pressure 153/91 153/91 153/91 O2 Sat by Pulse 94 95 95 Oximetry 07/31/17 07/31/17 07/31/17 05:10 05:20 05:30 Temperature Pulse Rate 73 73 74 Pulse Rate [ Apical] Pulse Rate [ From Monitor] Pulse Rate [ Right Radial] Respiratory 17 23 27 H Rate Blood Pressure 153/91 153/91 153/91 O2 Sat by Pulse 95 94 94 Oximetry 07/31/17 07/31/17 07/31/17 05:40 05:50 06:00 Temperature Pulse Rate 74 73 75 Pulse Rate [ Apical] Pulse Rate [ From Monitor] Pulse Rate [ Right Radial] Respiratory 21 19 21 Rate Blood Pressure 153/91 153/91 153/91 O2 Sat by Pulse 95 95 95 Oximetry 07/31/17 07/31/17 07/31/17 06:10 06:20 06:30 Temperature Pulse Rate 72 73 73 Pulse Rate [ Apical] Pulse Rate [ From Monitor] Pulse Rate [ Right Radial] Respiratory 22 19 21 Rate Blood Pressure 143/95 143/95 143/95 O2 Sat by Pulse 94 95 94 Oximetry 07/31/17 07/31/17 07/31/17 06:40 06:50 07:00 Temperature Pulse Rate 75 73 73 Pulse Rate [ Apical] Pulse Rate [ From Monitor] Pulse Rate [ Right Radial] Respiratory 24 18 23 Rate Blood Pressure 143/95 143/95 151/88 O2 Sat by Pulse 95 95 95 Oximetry 07/31/17 07/31/17 07/31/17 07:10 07:20 07:30 Temperature Pulse Rate 73 73 72 Pulse Rate [ Apical] Pulse Rate [ From Monitor] Pulse Rate [ Right Radial] Respiratory 20 20 17 Rate Blood Pressure 143/95 143/95 143/95 O2 Sat by Pulse 95 96 95 Oximetry 07/31/17 07/31/17 07/31/17 07:40 07:50 08:00 Temperature 99.0 F Pulse Rate 74 71 80 Pulse Rate [ Apical] Pulse Rate [ 80 From Monitor] Pulse Rate [ Right Radial] Respiratory 22 16 26 H Rate Blood Pressure 143/95 143/95 143/95 O2 Sat by Pulse 95 95 95 Oximetry 07/31/17 07/31/17 07/31/17 08:10 08:20 08:30 Temperature Pulse Rate 70 74 68 Pulse Rate [ Apical] Pulse Rate [ From Monitor] Pulse Rate [ Right Radial] Respiratory 20 21 20 Rate Blood Pressure 151/88 151/88 151/88 O2 Sat by Pulse 95 95 95 Oximetry 07/31/17 07/31/17 07/31/17 08:40 08:47 08:50 Temperature Pulse Rate 74 75 74 Pulse Rate [ Apical] Pulse Rate [ From Monitor] Pulse Rate [ Right Radial] Respiratory 22 15 Rate Blood Pressure 151/88 159/73 159/73 O2 Sat by Pulse 95 95 95 Oximetry 07/31/17 07/31/17 07/31/17 09:00 09:10 09:20 Temperature Pulse Rate 82 74 72 Pulse Rate [ Apical] Pulse Rate [ From Monitor] Pulse Rate [ Right Radial] Respiratory 29 H 19 24 Rate Blood Pressure 159/73 176/101 176/101 O2 Sat by Pulse 95 94 95 Oximetry 07/31/17 07/31/17 07/31/17 09:30 09:40 09:50 Temperature Pulse Rate 72 72 73 Pulse Rate [ Apical] Pulse Rate [ From Monitor] Pulse Rate [ Right Radial] Respiratory 21 16 23 Rate Blood Pressure 176/101 195/93 195/93 O2 Sat by Pulse 95 95 95 Oximetry 07/31/17 07/31/17 07/31/17 10:00 10:10 10:20 Temperature Pulse Rate 72 71 71 Pulse Rate [ Apical] Pulse Rate [ From Monitor] Pulse Rate [ Right Radial] Respiratory 19 17 21 Rate Blood Pressure 195/93 184/91 184/91 O2 Sat by Pulse 95 96 95 Oximetry 07/31/17 07/31/17 07/31/17 10:30 10:40 10:50 Temperature Pulse Rate 68 71 69 Pulse Rate [ Apical] Pulse Rate [ From Monitor] Pulse Rate [ Right Radial] Respiratory 17 22 22 Rate Blood Pressure 184/91 184/91 184/91 O2 Sat by Pulse 95 95 95 Oximetry 07/31/17 07/31/17 07/31/17 11:00 11:54 12:00 Temperature 99.6 F Pulse Rate 69 69 Pulse Rate [ Apical] Pulse Rate [ From Monitor] Pulse Rate [ Right Radial] Respiratory 21 Rate Blood Pressure 201/90 149/90 O2 Sat by Pulse 95 94 Oximetry Constitutional: comatose Eyes: non-icteric ENT: other (orally intubated and sedated) Neck: supple Effort: normal Ascultation: Bilateral: clear Percussion: Bilateral: not dull Cardiovascular: regular rate and rhythm Gastrointestinal: hypoactive bowel sounds Extremities: no edema CBC and BMP: 07/31/17 05:00 07/31/17 05:00 ABG, PT/INR, D-dimer: ABG POC ABG pH 7.399 (7.35-7.45) 07/31/17 04:13 POC ABG pCO2 26.8 (35-45) L 07/31/17 04:13 POC ABG pO2 74 (80-105) L 07/31/17 04:13 POC ABG HCO3 16.6 07/31/17 04:13 POC ABG Total CO2 17 07/31/17 04:13 POC ABG O2 Sat 95 07/31/17 04:13 PT/INR, D-dimer PT 15.6 Sec. (12.2-14.9) H 07/27/17 18:26 INR 1.18 (0.87-1.13) H 07/27/17 18:26 Abnormal lab findings: Abnormal Labs 1207/27/17 07/27/17 18:26 18:26 18:26 WBC 15.6 H MCHC Plt Count 115 L Lymph % (Auto) Tyrrell % (Auto) Tyrrell # Seg Neutrophils % Lymphocytes % (Manual) 36.0 H Seg Neutrophils # Seg Neutrophils # Man 8.9 H Lymphocytes # (Manual) 5.6 H Monocytes # (Manual) 1.1 H PT 15.6 H INR 1.18 H APTT 38.5 H POC ABG pH POC ABG pCO2 POC ABG pO2 Sodium Potassium Chloride Carbon Dioxide 21 L BUN Creatinine Glucose 252 H POC Glucose Lactic Acid Calcium 7.7 L Total Creatine Kinase CK-MB (CK-2) CK-MB (CK-2) Rel Index Troponin T 0.090 H Triglycerides 190 H LDL Cholesterol Direct 34 L HDL Cholesterol 21 L Urine WBC (Auto) Urine Creatinine 07/27/17 07/27/17 07/27/17 19:02 19:25 21:43 WBC MCHC Plt Count Lymph % (Auto) Tyrrell % (Auto) Tyrrell # Seg Neutrophils % Lymphocytes % (Manual) Seg Neutrophils # Seg Neutrophils # Man Lymphocytes # (Manual) Monocytes # (Manual) PT INR APTT POC ABG pH 7.155 L POC ABG pCO2 47.7 H POC ABG pO2 229 H Sodium Potassium Chloride Carbon Dioxide BUN Creatinine Glucose POC Glucose Lactic Acid 6.00 H* Calcium Total Creatine Kinase CK-MB (CK-2) 4.8 H CK-MB (CK-2) Rel Index Troponin T 0.149 H* D Triglycerides LDL Cholesterol Direct HDL Cholesterol Urine WBC (Auto) Urine Creatinine 07/27/17 07/27/17 07/28/17 22:47 22:47 01:47 WBC MCHC Plt Count Lymph % (Auto) Tyrrell % (Auto) Tyrrell # Seg Neutrophils % Lymphocytes % (Manual) Seg Neutrophils # Seg Neutrophils # Man Lymphocytes # (Manual) Monocytes # (Manual) PT INR APTT POC ABG pH POC ABG pCO2 POC ABG pO2 Sodium Potassium Chloride Carbon Dioxide BUN Creatinine Glucose POC Glucose 199 H Lactic Acid 2.40 H* Calcium Total Creatine Kinase 222 H CK-MB (CK-2) 9.4 H CK-MB (CK-2) Rel Index 4.2 H Troponin T 0.852 H* D Triglycerides LDL Cholesterol Direct HDL Cholesterol Urine WBC (Auto) Urine Creatinine 07/28/17 07/28/17 07/28/17 05:29 05:44 05:44 WBC MCHC Plt Count Lymph % (Auto) Tyrrell % (Auto) Tyrrell # Seg Neutrophils % Lymphocytes % (Manual) Seg Neutrophils # Seg Neutrophils # Man Lymphocytes # (Manual) Monocytes # (Manual) PT INR APTT POC ABG pH 7.268 L POC ABG pCO2 34.8 L POC ABG pO2 Sodium 146 H Potassium 5.1 H D Chloride 113.3 H Carbon Dioxide 18 L BUN 29 H Creatinine 2.0 H D Glucose 194 H POC Glucose Lactic Acid 2.10 H* Calcium 6.8 L Total Creatine Kinase CK-MB (CK-2) CK-MB (CK-2) Rel Index Troponin T Triglycerides LDL Cholesterol Direct HDL Cholesterol Urine WBC (Auto) Urine Creatinine 07/28/17 07/28/17 07/28/17 05:44 06:30 16:00 WBC 16.9 H MCHC 31 L Plt Count Lymph % (Auto) 8.4 L Tyrrell % (Auto) 7.5 H Tyrrell # 1.3 H Seg Neutrophils % 84.1 H Lymphocytes % (Manual) Seg Neutrophils # 14.2 H Seg Neutrophils # Man Lymphocytes # (Manual) Monocytes # (Manual) PT INR APTT POC ABG pH POC ABG pCO2 POC ABG pO2 Sodium 146 H Potassium Chloride Carbon Dioxide BUN Creatinine 2.4 H Glucose POC Glucose Lactic Acid Calcium Total Creatine Kinase 434 H CK-MB (CK-2) 10.8 H CK-MB (CK-2) Rel Index Troponin T 0.521 H* D Triglycerides LDL Cholesterol Direct HDL Cholesterol Urine WBC (Auto) Urine Creatinine 07/28/17 07/28/17 07/29/17 16:20 16:20 04:02 WBC MCHC Plt Count Lymph % (Auto) Tyrrell % (Auto) Tyrrell # Seg Neutrophils % Lymphocytes % (Manual) Seg Neutrophils # Seg Neutrophils # Man Lymphocytes # (Manual) Monocytes # (Manual) PT INR APTT POC ABG pH 7.304 L POC ABG pCO2 31.6 L POC ABG pO2 Sodium Potassium Chloride Carbon Dioxide BUN Creatinine Glucose POC Glucose Lactic Acid Calcium Total Creatine Kinase CK-MB (CK-2) CK-MB (CK-2) Rel Index Troponin T Triglycerides LDL Cholesterol Direct HDL Cholesterol Urine WBC (Auto) 12.0 H Urine Creatinine 58.4 H 07/29/17 07/29/17 07/30/17 05:00 Unknown 04:07 WBC 14.4 H MCHC Plt Count 125 L Lymph % (Auto) Tyrrell % (Auto) Tyrrell # Seg Neutrophils % Lymphocytes % (Manual) Seg Neutrophils # Seg Neutrophils # Man Lymphocytes # (Manual) Monocytes # (Manual) PT INR APTT POC ABG pH 7.319 L POC ABG pCO2 27.8 L POC ABG pO2 121 H Sodium Potassium Chloride 111.7 H Carbon Dioxide 18 L BUN 37 H Creatinine 2.1 H Glucose 213 H POC Glucose Lactic Acid Calcium 6.9 L Total Creatine Kinase CK-MB (CK-2) CK-MB (CK-2) Rel Index Troponin T Triglycerides LDL Cholesterol Direct HDL Cholesterol Urine WBC (Auto) Urine Creatinine 07/30/17 07/30/17 07/30/17 12:43 17:22 23:27 WBC MCHC Plt Count Lymph % (Auto) Tyrrell % (Auto) Tyrrell # Seg Neutrophils % Lymphocytes % (Manual) Seg Neutrophils # Seg Neutrophils # Man Lymphocytes # (Manual) Monocytes # (Manual) PT INR APTT POC ABG pH POC ABG pCO2 POC ABG pO2 Sodium Potassium Chloride Carbon Dioxide BUN Creatinine Glucose POC Glucose 134 H 117 H 173 H Lactic Acid Calcium Total Creatine Kinase CK-MB (CK-2) CK-MB (CK-2) Rel Index Troponin T Triglycerides LDL Cholesterol Direct HDL Cholesterol Urine WBC (Auto) Urine Creatinine 07/30/17 07/30/17 07/31/17 Unknown Unknown 04:13 WBC 15.6 H MCHC Plt Count 117 L Lymph % (Auto) Tyrrell % (Auto) Tyrrell # Seg Neutrophils % Lymphocytes % (Manual) Seg Neutrophils # Seg Neutrophils # Man Lymphocytes # (Manual) Monocytes # (Manual) PT INR APTT POC ABG pH POC ABG pCO2 26.8 L POC ABG pO2 74 L Sodium 146 H Potassium Chloride 113.8 H Carbon Dioxide 18 L BUN 36 H Creatinine 1.8 H Glucose 177 H POC Glucose Lactic Acid Calcium 6.9 L Total Creatine Kinase CK-MB (CK-2) CK-MB (CK-2) Rel Index Troponin T Triglycerides LDL Cholesterol Direct HDL Cholesterol Urine WBC (Auto) Urine Creatinine 07/31/17 07/31/17 07/31/17 05:00 05:00 05:01 WBC 18.5 H MCHC Plt Count 135 L Lymph % (Auto) Tyrrell % (Auto) Tyrrell # Seg Neutrophils % Lymphocytes % (Manual) Seg Neutrophils # Seg Neutrophils # Man Lymphocytes # (Manual) Monocytes # (Manual) PT INR APTT POC ABG pH POC ABG pCO2 POC ABG pO2 Sodium 148 H Potassium Chloride 112.8 H Carbon Dioxide 20 L BUN 33 H Creatinine 1.6 H Glucose 188 H POC Glucose 219 H Lactic Acid Calcium 7.1 L Total Creatine Kinase CK-MB (CK-2) CK-MB (CK-2) Rel Index Troponin T Triglycerides LDL Cholesterol Direct HDL Cholesterol Urine WBC (Auto) Urine Creatinine
[2017-07-31] MEDS: COREG PO SCH ×2 (14:34→21:31)
--- NOTE | 2017-07-31 15:07 | Progress Note ---
Assessment and Plan Assessment and plan: Cardio-resp arrest at home. Admitted to ICU. All interdisciplinary notes reviewed. Patient is unresponsive, family in the room. He is intubated, on vent. As per ED Physician notes, downtime about 40 mins, no pulse for about 40 mins. He had ventricular fib/v tach rhythm, was shocked, given Amiodarone, intubated by paramedics before before brought to ED. CPR continued in ED before he regained pulse. Cardiology and Pulmonology following. Cardiology states he is not a candidate for further ischemic evaluation because of current poor condition, co-morbidities. Shock. Cardiogenic +/- septic shock. He is off vasopressor, BPs moderately high. will monitor Acute kidney Injury due to acute tubular necrosis. Improving, Creatinine improved 1.6 today. Nephrology following. I discussed with Nephrology. CAD s/p CABG. cardiology note reviewed and appreciated Ischemic cardiomyopathy: EF 15 - 20 % Acute Encephalopathy: Secondary to cardiac arrest. Likely anoxic encephalopathy Patient is unresponsive Hypernatremia: Increase free water intake Leukocytosis: Blood cultures no growth to date. Continue Zosyn Hyperglycemia: Monitor blood sugars with sliding scale coverage for now Full code status Subjective Date of service: 07/31/17 Principal diagnosis: out of hospital cardiac arrest Interval history: Patient is intubated and unresponsive He is off vasopressors and blood pressure is mildly elevated Family in the room Discussed with family about his condition Objective - Constitutional Vitals: Vital Signs - 12hr 07/31/17 07/31/17 07/31/17 03:10 03:20 03:30 Temperature Pulse Rate 87 75 75 Pulse Rate [ Apical] Pulse Rate [ From Monitor] Pulse Rate [ Right Radial] Respiratory 31 H 18 22 Rate Blood Pressure 149/87 149/87 149/87 O2 Sat by Pulse 94 94 94 Oximetry 07/31/17 07/31/17 07/31/17 03:33 03:40 03:50 Temperature 97.9 F Pulse Rate 74 74 Pulse Rate [ Apical] Pulse Rate [ From Monitor] Pulse Rate [ Right Radial] Respiratory 20 26 H Rate Blood Pressure 149/87 149/87 O2 Sat by Pulse 94 94 Oximetry 07/31/17 07/31/17 07/31/17 04:00 04:03 04:10 Temperature Pulse Rate 75 75 75 Pulse Rate [ 76 Apical] Pulse Rate [ 76 From Monitor] Pulse Rate [ 76 Right Radial] Respiratory 21 19 Rate Blood Pressure 153/91 153/91 153/91 O2 Sat by Pulse 94 94 94 Oximetry 07/31/17 07/31/17 07/31/17 04:20 04:30 04:40 Temperature Pulse Rate 85 82 73 Pulse Rate [ Apical] Pulse Rate [ From Monitor] Pulse Rate [ Right Radial] Respiratory 19 18 Rate Blood Pressure 153/91 153/91 153/91 O2 Sat by Pulse 93 95 94 Oximetry 07/31/17 07/31/17 07/31/17 04:50 05:00 05:10 Temperature Pulse Rate 72 73 73 Pulse Rate [ Apical] Pulse Rate [ From Monitor] Pulse Rate [ Right Radial] Respiratory 16 16 17 Rate Blood Pressure 153/91 153/91 153/91 O2 Sat by Pulse 95 95 95 Oximetry 07/31/17 07/31/17 07/31/17 05:20 05:30 05:40 Temperature Pulse Rate 73 74 74 Pulse Rate [ Apical] Pulse Rate [ From Monitor] Pulse Rate [ Right Radial] Respiratory 23 27 H 21 Rate Blood Pressure 153/91 153/91 153/91 O2 Sat by Pulse 94 94 95 Oximetry 07/31/17 07/31/17 07/31/17 05:50 06:00 06:10 Temperature Pulse Rate 73 75 72 Pulse Rate [ Apical] Pulse Rate [ From Monitor] Pulse Rate [ Right Radial] Respiratory 19 21 22 Rate Blood Pressure 153/91 153/91 143/95 O2 Sat by Pulse 95 95 94 Oximetry 07/31/17 07/31/17 07/31/17 06:20 06:30 06:40 Temperature Pulse Rate 73 73 75 Pulse Rate [ Apical] Pulse Rate [ From Monitor] Pulse Rate [ Right Radial] Respiratory 19 21 24 Rate Blood Pressure 143/95 143/95 143/95 O2 Sat by Pulse 95 94 95 Oximetry 07/31/17 07/31/17 07/31/17 06:50 07:00 07:10 Temperature Pulse Rate 73 73 73 Pulse Rate [ Apical] Pulse Rate [ From Monitor] Pulse Rate [ Right Radial] Respiratory 18 23 20 Rate Blood Pressure 143/95 151/88 143/95 O2 Sat by Pulse 95 95 95 Oximetry 07/31/17 07/31/17 07/31/17 07:20 07:30 07:40 Temperature Pulse Rate 73 72 74 Pulse Rate [ Apical] Pulse Rate [ From Monitor] Pulse Rate [ Right Radial] Respiratory 20 17 22 Rate Blood Pressure 143/95 143/95 143/95 O2 Sat by Pulse 96 95 95 Oximetry 07/31/17 07/31/17 07/31/17 07:50 08:00 08:10 Temperature 99.0 F Pulse Rate 71 80 70 Pulse Rate [ Apical] Pulse Rate [ 80 From Monitor] Pulse Rate [ Right Radial] Respiratory 16 26 H 20 Rate Blood Pressure 143/95 143/95 151/88 O2 Sat by Pulse 95 95 95 Oximetry 07/31/17 07/31/17 07/31/17 08:20 08:30 08:40 Temperature Pulse Rate 74 68 74 Pulse Rate [ Apical] Pulse Rate [ From Monitor] Pulse Rate [ Right Radial] Respiratory 21 20 22 Rate Blood Pressure 151/88 151/88 151/88 O2 Sat by Pulse 95 95 95 Oximetry 07/31/17 07/31/17 07/31/17 08:47 08:50 09:00 Temperature Pulse Rate 75 74 82 Pulse Rate [ Apical] Pulse Rate [ From Monitor] Pulse Rate [ Right Radial] Respiratory 15 29 H Rate Blood Pressure 159/73 159/73 159/73 O2 Sat by Pulse 95 95 95 Oximetry 07/31/17 07/31/17 07/31/17 09:10 09:20 09:30 Temperature Pulse Rate 74 72 72 Pulse Rate [ Apical] Pulse Rate [ From Monitor] Pulse Rate [ Right Radial] Respiratory 19 24 21 Rate Blood Pressure 176/101 176/101 176/101 O2 Sat by Pulse 94 95 95 Oximetry 07/31/17 07/31/17 07/31/17 09:40 09:50 10:00 Temperature Pulse Rate 72 73 72 Pulse Rate [ Apical] Pulse Rate [ From Monitor] Pulse Rate [ Right Radial] Respiratory 16 23 19 Rate Blood Pressure 195/93 195/93 195/93 O2 Sat by Pulse 95 95 95 Oximetry 07/31/17 07/31/17 07/31/17 10:10 10:20 10:30 Temperature Pulse Rate 71 71 68 Pulse Rate [ Apical] Pulse Rate [ From Monitor] Pulse Rate [ Right Radial] Respiratory 17 21 17 Rate Blood Pressure 184/91 184/91 184/91 O2 Sat by Pulse 96 95 95 Oximetry 07/31/17 07/31/17 07/31/17 10:40 10:50 11:00 Temperature Pulse Rate 71 69 69 Pulse Rate [ Apical] Pulse Rate [ From Monitor] Pulse Rate [ Right Radial] Respiratory 22 22 21 Rate Blood Pressure 184/91 184/91 201/90 O2 Sat by Pulse 95 95 95 Oximetry 07/31/17 07/31/17 07/31/17 11:54 12:00 14:34 Temperature 99.6 F Pulse Rate 69 65 Pulse Rate [ Apical] Pulse Rate [ From Monitor] Pulse Rate [ Right Radial] Respiratory Rate Blood Pressure 149/90 152/89 O2 Sat by Pulse 94 Oximetry General appearance: Present: no acute distress, other (unresponsive) - EENT Eyes: PERRL - Neck Neck: supple, no masses or JVD - Respiratory Respiratory: bilateral: CTA - Cardiovascular Rhythm: regular Heart Sounds: Present: S1 & S2 Extremities: No edema - Gastrointestinal General gastrointestinal: Present: soft. Absent: hepatomegaly, splenomegaly Rectal Exam: deferred - Integumentary Integumentary: clear - Neurologic Neurologic: other (patient is unresponsive and intubated) - Labs CBC & Chem 7: 07/31/17 05:00 07/31/17 05:00 Labs: Abnormal lab results 07/30/17 07/30/17 07/30/17 Range/Units 12:43 17:22 23:27 WBC (4.5-11.0) K/mm3 Plt Count (140-440) K/mm3 POC ABG pCO2 (35-45) POC ABG pO2 (80-105) Sodium (137-145) mmol/L Chloride (98-107) mmol/L Carbon Dioxide (22-30) mmol/L BUN (9-20) mg/dL Creatinine (0.8-1.5) mg/dL Glucose (75-100) mg/dL POC Glucose 134 H 117 H 173 H (70-105) Calcium (8.4-10.2) mg/dL 07/31/17 07/31/17 07/31/17 Range/Units 04:13 05:00 05:00 WBC 18.5 H (4.5-11.0) K/mm3 Plt Count 135 L (140-440) K/mm3 POC ABG pCO2 26.8 L (35-45) POC ABG pO2 74 L (80-105) Sodium 148 H (137-145) mmol/L Chloride 112.8 H (98-107) mmol/L Carbon Dioxide 20 L (22-30) mmol/L BUN 33 H (9-20) mg/dL Creatinine 1.6 H (0.8-1.5) mg/dL Glucose 188 H (75-100) mg/dL POC Glucose (70-105) Calcium 7.1 L (8.4-10.2) mg/dL 07/31/17 07/31/17 Range/Units 05:01 14:36 WBC (4.5-11.0) K/mm3 Plt Count (140-440) K/mm3 POC ABG pCO2 (35-45) POC ABG pO2 (80-105) Sodium (137-145) mmol/L Chloride (98-107) mmol/L Carbon Dioxide (22-30) mmol/L BUN (9-20) mg/dL Creatinine (0.8-1.5) mg/dL Glucose (75-100) mg/dL POC Glucose 219 H 199 H (70-105) Calcium (8.4-10.2) mg/dL
[2017-07-31] MEDS ORDERED: ZOSYN/NS 4.5GM/100ML 4.5 GM/100 ML VIAL IV SCH (16:00)
[2017-07-31] MEDS: ZOSYN/NS 3.375GM/50ML 3.375 GM/50 ML BAG IV SCH (21:33)
--- NOTE | 2017-07-31 22:20 | XRay Report ---
FINAL REPORT EXAM: XR ABDOMEN 1V AP HISTORY: dobbhoff tube placement TECHNIQUE: KUB will was performed Comparison: Chest x-ray 07/30 FINDINGS: Limited KUB demonstrates placement of a weighted feeding tube with the tip in the region the gastric body. Recommend the patient return in the right lateral decubitus position and the Dobhoff tube be advanced slowly approximately 15-18 centimeters. Bowel gas pattern is nonspecific. There has been previous median sternotomy. Cardiac silhouette is enlarged. There is left basal consolidation and possibly effusion. Nasogastric tube has been removed. IMPRESSION: Weighted tip feeding tube in the region of the gastric body. It should be slowly advanced approximately 15-18 centimeters with the patient in the right lateral decubitus position. Nasogastric tube has been removed. Persistent left basal consolidation and marked cardiomegaly.
[2017-08-01] MEDS: NOVOLOG SUB-Q SCH ×2 (01:42→22:02)
--- NOTE | 2017-08-01 02:44 | XRay Report ---
FINAL REPORT EXAM: XR CHEST 1V AP HISTORY: follow up respiratory failure TECHNIQUE: A portable upright view of the chest was obtained and compared to the study of 07/31/2017. FINDINGS: The heart remains enlarged. There are sternotomy sutures. The ET tube appears in good position above the pérez. The Dobhoff tube is coiled in the stomach. The lungs remain mildly congested. There are bilateral effusions. There are atelectatic changes left lung base. The bones and soft tissues do not show any acute changes. IMPRESSION: Stable pulmonary edema with bilateral effusions. Stable atelectatic changes in the left lung base.
[2017-08-01 04:35] LABS: Hematocrit 36.9 % (35.5-45.6); Hemoglobin 12.2 gm/dl (11.8-15.2); Mean Corpuscular HGB Conc 33 % (32-34); Mean Corpuscular Hemoglobin 28 pg (28-32); Mean Corpuscular Volume 86 fl (84-94); Platelet Count 129 K/mm3 (140-440); Red Cell Distribution Width 13.8 % (13.2-15.2)
[2017-08-01 04:58] LABS: Calcium 7.3 mg/dL (8.4-10.2)
[2017-08-01] MEDS: ZOSYN/NS 3.375GM/50ML 3.375 GM/50 ML BAG IV SCH ×3 (06:38→17:36)
[2017-08-01] MEDS: NACL 0.45% 1000 ML 1,000 ML with SODIUM BICARBONATE 50 MEQ IV SCH (07:00)
[2017-08-01] MEDS: COREG PO SCH ×2 (10:09→22:02)
[2017-08-01] MEDS: CORDARONE PO SCH ×2 (10:09→22:02)
[2017-08-01] MEDS: PEPCID IV SCH ×2 (10:10→22:07)
[2017-08-01] MEDS: VANCOMYCIN 1,250 MG in NACL 0.9% 250ML 250 ML IV SCH (10:18)
--- NOTE | 2017-08-01 10:53 | Progress Note ---
Assessment and Plan Out of hospital cardiac arrest 40 minutes of ACLS before ROSC Off IV amiodarone drip. Currently on oral/NGT amiodarone Apparently, patient declined ICD 30 days ago Ischemic cardiomyopathy, LVEF 15-20% CAD s/p CABG 2006 at [place] ONEILL to LAD; COREY to RI; SVG to PLOM; SVG to RV branch and PDA branch Non-specific troponin Not consistent with ACS Acute renal failure Recommendations: Supportive ICU care Neuro assessment and follow-up, neurology sees no change in clinical status Any further cardiac intervention will solely depend on neuro recovery Subjective Principal diagnosis: out of hospital cardiac arrest Interval history: Remains unresponsive observation Objective Vital Signs Temp Pulse Pulse Pulse Pulse Pulse Resp 08/01/17 10:09 84 08/01/17 09:50 84 08/01/17 08:00 99.7 F H 08/01/17 06:21 73 23 08/01/17 06:11 72 25 H 08/01/17 06:01 77 16 08/01/17 05:51 08/01/17 05:41 72 18 08/01/17 05:31 72 19 08/01/17 05:21 72 20 08/01/17 05:10 73 16 08/01/17 05:00 72 19 08/01/17 04:50 70 19 08/01/17 04:40 70 19 08/01/17 04:30 70 18 08/01/17 04:20 71 16 08/01/17 04:10 70 21 08/01/17 04:00 70 71 71 71 18 08/01/17 03:50 70 22 08/01/17 03:40 70 25 H 08/01/17 03:37 97.6 F 08/01/17 03:30 69 19 08/01/17 03:20 67 24 08/01/17 03:10 69 16 08/01/17 03:08 72 08/01/17 03:00 70 18 08/01/17 02:51 68 18 08/01/17 02:41 68 17 08/01/17 02:31 68 17 08/01/17 02:21 66 12 08/01/17 02:11 68 10 L 08/01/17 02:00 69 24 08/01/17 01:51 68 17 08/01/17 01:41 68 17 08/01/17 01:31 69 17 08/01/17 01:21 69 14 08/01/17 01:10 67 21 08/01/17 01:00 67 19 08/01/17 00:50 66 17 08/01/17 00:40 66 24 08/01/17 00:30 67 16 08/01/17 00:20 66 21 08/01/17 00:10 83 24 08/01/17 00:00 65 72 72 72 72 17 07/31/17 23:50 66 18 07/31/17 23:47 100.1 F H 07/31/17 23:40 66 24 07/31/17 23:30 66 25 H 07/31/17 23:21 66 07/31/17 23:20 67 19 07/31/17 23:10 66 26 H 07/31/17 23:00 66 18 07/31/17 22:50 67 20 07/31/17 22:40 65 22 07/31/17 22:30 63 19 07/31/17 22:20 66 20 07/31/17 22:10 65 23 07/31/17 22:04 68 18 07/31/17 22:00 64 21 07/31/17 21:50 67 23 07/31/17 21:40 65 24 07/31/17 21:31 65 07/31/17 21:30 65 17 07/31/17 21:20 66 25 H 07/31/17 21:10 68 13 07/31/17 21:00 67 22 07/31/17 20:50 75 15 07/31/17 20:40 68 24 07/31/17 20:30 66 16 07/31/17 20:20 66 17 07/31/17 20:10 07/31/17 20:00 66 83 83 83 83 23 07/31/17 19:50 65 26 H 07/31/17 19:43 67 07/31/17 19:40 98 F 66 23 07/31/17 19:30 64 23 07/31/17 19:20 65 21 07/31/17 19:10 66 24 07/31/17 19:00 65 22 07/31/17 18:50 65 22 07/31/17 18:40 65 24 07/31/17 18:30 76 29 H 07/31/17 18:20 64 22 07/31/17 18:10 62 23 12/24/17 18:00 63 22 07/31/17 17:50 64 20 07/31/17 17:40 65 20 07/31/17 17:30 64 23 07/31/17 17:20 63 22 07/31/17 17:10 65 24 07/31/17 17:00 64 21 07/31/17 16:50 64 23 07/31/17 16:40 63 22 07/31/17 16:30 64 18 07/31/17 16:20 65 22 07/31/17 16:10 63 23 07/31/17 16:00 64 64 21 07/31/17 15:59 99.1 F 07/31/17 15:50 64 20 07/31/17 15:40 67 25 H 07/31/17 15:33 72 07/31/17 15:30 71 23 07/31/17 15:20 66 19 07/31/17 15:10 67 17 07/31/17 15:00 66 23 07/31/17 14:50 68 21 07/31/17 14:40 66 22 07/31/17 14:34 65 07/31/17 14:30 66 23 07/31/17 14:20 66 22 07/31/17 14:10 66 18 07/31/17 14:00 66 20 07/31/17 13:50 66 23 07/31/17 13:40 66 20 07/31/17 13:30 64 22 07/31/17 13:20 67 22 07/31/17 13:10 72 28 H 07/31/17 13:00 73 25 H 07/31/17 12:50 76 16 07/31/17 12:40 67 21 07/31/17 12:30 67 23 07/31/17 12:20 67 22 07/31/17 12:10 67 24 07/31/17 12:00 99.6 F 71 71 26 H 07/31/17 11:54 69 07/31/17 11:50 77 18 07/31/17 11:40 67 21 07/31/17 11:30 67 21 07/31/17 11:20 67 19 07/31/17 11:10 70 23 07/31/17 11:00 69 21 Resp BP Pulse Ox 08/01/17 10:09 156/87 08/01/17 09:50 156/87 93 08/01/17 08:00 17 06:21 135/79 94 17 06:11 135/79 94 17 06:01 135/79 92 17 05:51 135/79 94 17 05:41 135/79 94 17 05:31 135/79 94 17 05:21 135/79 93 17 05:10 135/79 94 17 05:00 135/79 94 17 04:50 145/82 94 17 04:40 145/82 94 17 04:30 145/82 94 17 04:20 145/82 94 17 04:10 145/82 94 08/01/17 04:00 145/82 95 17 03:50 147/86 94 17 03:40 147/86 95 17 03:37 17 03:30 147/90 95 17 03:20 147/90 96 17 03:10 147/90 94 08/01/17 03:08 147/86 94 08/01/17 03:00 147/86 95 17 02:51 147/90 95 17 02:41 147/90 95 17 02:31 147/90 94 17 02:21 147/90 94 17 02:11 147/90 94 17 02:00 147/90 95 17 01:51 152/91 96 17 01:41 152/91 95 17 01:31 146/83 94 17 01:21 146/83 94 17 01:10 146/83 95 17 01:00 152/91 95 17 00:50 146/83 95 17 00:40 146/83 94 17 00:30 146/83 95 17 00:20 146/83 94 17 00:10 146/83 93 12/25/17 00:00 146/83 95 07/31/17 23:50 154/88 95 07/31/17 23:47 07/31/17 23:40 154/88 95 07/31/17 23:30 154/88 95 07/31/17 23:21 154/88 94 07/31/17 23:20 154/88 94 07/31/17 23:10 154/88 94 07/31/17 23:00 154/88 95 07/31/17 22:50 154/88 95 07/31/17 22:40 154/88 95 07/31/17 22:30 154/88 94 07/31/17 22:20 154/88 94 07/31/17 22:10 154/88 94 07/31/17 22:04 154/88 95 07/31/17 22:00 18 154/88 95 07/31/17 21:50 160/91 95 07/31/17 21:40 160/91 95 07/31/17 21:31 160/65 07/31/17 21:30 160/91 95 07/31/17 21:20 160/91 94 07/31/17 21:10 160/91 96 07/31/17 21:00 155/85 95 07/31/17 20:50 155/85 95 07/31/17 20:40 155/85 96 07/31/17 20:30 155/85 96 07/31/17 20:20 155/85 96 07/31/17 20:10 155/85 95 07/31/17 20:00 150/88 95 07/31/17 19:50 150/88 97 07/31/17 19:43 150/88 95 07/31/17 19:40 150/88 95 07/31/17 19:30 150/88 95 07/31/17 19:20 150/88 96 07/31/17 19:10 150/88 95 07/31/17 19:00 150/90 95 07/31/17 18:50 150/90 95 07/31/17 18:40 150/90 95 07/31/17 18:30 150/90 95 07/31/17 18:20 150/90 95 07/31/17 18:10 150/90 95 07/31/17 18:00 150/90 95 07/31/17 17:50 148/90 96 07/31/17 17:40 148/90 95 07/31/17 17:30 148/90 96 07/31/17 17:20 148/90 94 07/31/17 17:10 148/90 95 07/31/17 17:00 148/90 95 07/31/17 16:50 147/92 95 07/31/17 16:40 147/92 95 07/31/17 16:30 147/92 94 07/31/17 16:20 147/92 94 07/31/17 16:10 147/92 94 07/31/17 16:00 141/86 95 07/31/17 15:59 07/31/17 15:50 141/86 95 07/31/17 15:40 141/86 96 07/31/17 15:33 141/86 93 07/31/17 15:30 141/86 94 07/31/17 15:20 141/86 95 07/31/17 15:10 141/86 94 07/31/17 15:00 141/86 94 07/31/17 14:50 152/89 95 07/31/17 14:40 152/89 94 07/31/17 14:34 152/89 07/31/17 14:30 152/89 94 07/31/17 14:20 152/89 95 07/31/17 14:10 152/89 95 07/31/17 14:00 152/89 95 07/31/17 13:50 159/108 94 07/31/17 13:40 159/108 95 07/31/17 13:30 159/108 94 07/31/17 13:20 159/108 93 07/31/17 13:10 159/108 93 07/31/17 13:00 157/98 86 07/31/17 12:50 157/98 93 07/31/17 12:40 157/98 94 07/31/17 12:30 157/98 94 07/31/17 12:20 157/98 94 07/31/17 12:10 157/98 94 07/31/17 12:00 157/98 95 07/31/17 11:54 149/90 94 07/31/17 11:50 149/90 94 07/31/17 11:40 149/90 95 07/31/17 11:30 149/90 96 07/31/17 11:20 201/90 95 07/31/17 11:10 201/90 95 07/31/17 11:00 95 - Physical Examination Narrative exam: Physical examination Vitals reviewed GEN: Ventilated HEENT: Carotids 2+ NECK: Supple CVS: S1 and S2 heard no significant murmur or gallop noted LUNGS/CHEST: Normal auscultation ABD: Soft nontender Extremities: No edema noted normal color NEURO: No response to verbal or pain stimuli General: Other (intubated on the vent) Neck: Positive: neck supple, trachea midline. Negative: JVD/HJR, Masses - Labs and Meds CBC 08/01/17 Range/Units 04:10 WBC 19.3 H (4.5-11.0) K/mm3 RBC 4.30 (3.65-5.03) M/mm3 Hgb 12.2 (11.8-15.2) gm/dl Hct 36.9 (35.5-45.6) % Plt Count 129 L (140-440) K/mm3 Comprehensive Metabolic Panel 08/01/17 Range/Units 04:10 Sodium 148 H (137-145) mmol/L Potassium 3.7 (3.6-5.0) mmol/L Chloride 113.2 H (98-107) mmol/L Carbon Dioxide 21 L (22-30) mmol/L BUN 29 H (9-20) mg/dL Creatinine 1.3 (0.8-1.5) mg/dL Glucose 173 H (75-100) mg/dL Calcium 7.3 L (8.4-10.2) mg/dL - Imaging and Cardiology EKG: image reviewed
--- NOTE | 2017-08-01 10:58 | Progress Note ---
Assessment and Plan Impression * Acute renal failure * Status post cardiac arrest * History of coronary artery disease * Hypertension * Mild metabolic acidosis * Hypotension Recommendations * His serum creatinine is improving. His fractional excretion of sodium is 2.6%. He most likely has ATN. * He is currently nonoliguric No indication for dialysis at this time. * Serum sodium is rising . Continue free water to the NG tube. * He is getting edematous and blood pressure is elevated. Shall discontinue his IV fluid. Shall also given small dose of Lasix. * His urine did show 2+ dipstick protein and moderate blood. Follow-up results of vasculitis workup. * Hepatitis B and C both are negative * His acidosis is most likely secondary to lactic acidosis * CT scan of his abdomen showed bilateral kidney cysts as well as stones * Monitor fluid status and electrolytes closely. * Avoid nephrotoxins * His blood pressure is better today. * Discussed with patient's family at bedside Subjective Date of service: 08/01/17 Principal diagnosis: out of hospital cardiac arrest Interval history: Patient remains on the ventilator. Currently on 25% FiO2. Unresponsive. Off sedation. Objective - Vital Signs Vital signs: Vital Signs - 12hr 07/31/17 07/31/17 07/31/17 23:00 23:10 23:20 Temperature Pulse Rate 66 66 67 Pulse Rate [ Apical] Pulse Rate [ From Monitor] Pulse Rate [ Left Radial] Pulse Rate [ Right Radial] Respiratory 18 26 H 19 Rate Blood Pressure 154/88 154/88 154/88 O2 Sat by Pulse 95 94 94 Oximetry 07/31/17 07/31/17 07/31/17 23:21 23:30 23:40 Temperature Pulse Rate 66 66 66 Pulse Rate [ Apical] Pulse Rate [ From Monitor] Pulse Rate [ Left Radial] Pulse Rate [ Right Radial] Respiratory 25 H 24 Rate Blood Pressure 154/88 154/88 154/88 O2 Sat by Pulse 94 95 95 Oximetry 07/31/17 07/31/17 08/01/17 23:47 23:50 00:00 Temperature 100.1 F H Pulse Rate 66 65 Pulse Rate [ 72 Apical] Pulse Rate [ 72 From Monitor] Pulse Rate [ 72 Left Radial] Pulse Rate [ 72 Right Radial] Respiratory 18 17 Rate Blood Pressure 154/88 146/83 O2 Sat by Pulse 95 95 Oximetry 08/01/17 08/01/17 08/01/17 00:10 00:20 00:30 Temperature Pulse Rate 83 66 67 Pulse Rate [ Apical] Pulse Rate [ From Monitor] Pulse Rate [ Left Radial] Pulse Rate [ Right Radial] Respiratory 24 21 16 Rate Blood Pressure 146/83 146/83 146/83 O2 Sat by Pulse 93 94 95 Oximetry 08/01/17 08/01/17 08/01/17 00:40 00:50 01:00 Temperature Pulse Rate 66 66 67 Pulse Rate [ Apical] Pulse Rate [ From Monitor] Pulse Rate [ Left Radial] Pulse Rate [ Right Radial] Respiratory 24 17 19 Rate Blood Pressure 146/83 146/83 152/91 O2 Sat by Pulse 94 95 95 Oximetry 08/01/17 08/01/17 08/01/17 01:10 01:21 01:31 Temperature Pulse Rate 67 69 69 Pulse Rate [ Apical] Pulse Rate [ From Monitor] Pulse Rate [ Left Radial] Pulse Rate [ Right Radial] Respiratory 21 14 17 Rate Blood Pressure 146/83 146/83 146/83 O2 Sat by Pulse 95 94 94 Oximetry 08/01/17 08/01/17 08/01/17 01:41 01:51 02:00 Temperature Pulse Rate 68 68 69 Pulse Rate [ Apical] Pulse Rate [ From Monitor] Pulse Rate [ Left Radial] Pulse Rate [ Right Radial] Respiratory 17 17 24 Rate Blood Pressure 152/91 152/91 147/90 O2 Sat by Pulse 95 96 95 Oximetry 08/01/17 08/01/17 08/01/17 02:11 02:21 02:31 Temperature Pulse Rate 68 66 68 Pulse Rate [ Apical] Pulse Rate [ From Monitor] Pulse Rate [ Left Radial] Pulse Rate [ Right Radial] Respiratory 10 L 12 17 Rate Blood Pressure 147/90 147/90 147/90 O2 Sat by Pulse 94 94 94 Oximetry 08/01/17 08/01/17 08/01/17 02:41 02:51 03:00 Temperature Pulse Rate 68 68 70 Pulse Rate [ Apical] Pulse Rate [ From Monitor] Pulse Rate [ Left Radial] Pulse Rate [ Right Radial] Respiratory 17 18 18 Rate Blood Pressure 147/90 147/90 147/86 O2 Sat by Pulse 95 95 95 Oximetry 08/01/17 08/01/17 08/01/17 03:08 03:10 03:20 Temperature Pulse Rate 72 69 67 Pulse Rate [ Apical] Pulse Rate [ From Monitor] Pulse Rate [ Left Radial] Pulse Rate [ Right Radial] Respiratory 16 24 Rate Blood Pressure 147/86 147/90 147/90 O2 Sat by Pulse 94 94 96 Oximetry 08/01/17 08/01/17 08/01/17 03:30 03:37 03:40 Temperature 97.6 F Pulse Rate 69 70 Pulse Rate [ Apical] Pulse Rate [ From Monitor] Pulse Rate [ Left Radial] Pulse Rate [ Right Radial] Respiratory 19 25 H Rate Blood Pressure 147/90 147/86 O2 Sat by Pulse 95 95 Oximetry 08/01/17 08/01/17 08/01/17 03:50 04:00 04:10 Temperature Pulse Rate 70 70 70 Pulse Rate [ 71 Apical] Pulse Rate [ 71 From Monitor] Pulse Rate [ Left Radial] Pulse Rate [ 71 Right Radial] Respiratory 22 18 21 Rate Blood Pressure 147/86 145/82 145/82 O2 Sat by Pulse 94 95 94 Oximetry 08/01/17 08/01/17 08/01/17 04:20 04:30 04:40 Temperature Pulse Rate 71 70 70 Pulse Rate [ Apical] Pulse Rate [ From Monitor] Pulse Rate [ Left Radial] Pulse Rate [ Right Radial] Respiratory 16 18 19 Rate Blood Pressure 145/82 145/82 145/82 O2 Sat by Pulse 94 94 94 Oximetry 08/01/17 08/01/17 08/01/17 04:50 05:00 05:10 Temperature Pulse Rate 70 72 73 Pulse Rate [ Apical] Pulse Rate [ From Monitor] Pulse Rate [ Left Radial] Pulse Rate [ Right Radial] Respiratory 19 19 16 Rate Blood Pressure 145/82 135/79 135/79 O2 Sat by Pulse 94 94 94 Oximetry 08/01/17 08/01/17 08/01/17 05:21 05:31 05:41 Temperature Pulse Rate 72 72 72 Pulse Rate [ Apical] Pulse Rate [ From Monitor] Pulse Rate [ Left Radial] Pulse Rate [ Right Radial] Respiratory 20 19 18 Rate Blood Pressure 135/79 135/79 135/79 O2 Sat by Pulse 93 94 94 Oximetry 08/01/17 08/01/17 08/01/17 05:51 06:01 06:11 Temperature Pulse Rate 77 72 Pulse Rate [ Apical] Pulse Rate [ From Monitor] Pulse Rate [ Left Radial] Pulse Rate [ Right Radial] Respiratory 16 25 H Rate Blood Pressure 135/79 135/79 135/79 O2 Sat by Pulse 94 92 94 Oximetry 1208/01/17 08/01/17 06:21 08:00 09:50 Temperature 99.7 F H Pulse Rate 73 84 Pulse Rate [ Apical] Pulse Rate [ From Monitor] Pulse Rate [ Left Radial] Pulse Rate [ Right Radial] Respiratory 23 Rate Blood Pressure 135/79 156/87 O2 Sat by Pulse 94 93 Oximetry 08/01/17 10:09 Temperature Pulse Rate 84 Pulse Rate [ Apical] Pulse Rate [ From Monitor] Pulse Rate [ Left Radial] Pulse Rate [ Right Radial] Respiratory Rate Blood Pressure 156/87 O2 Sat by Pulse Oximetry - General Appearance General appearance: well-developed, well-nourished, appears stated age, intubated EENT: PERRL, mucous membranes moist Neck: no JVD, no thyromegaly, no carotid bruit, supple Respiratory: Present: Clear to Ascultation Cardiology: regular, normal heart rate, S1S2, no murmurs Gastrointestinal: normal, normoactive bowel sounds Integumentary: no rash, other (1+ edema) - Lab 08/01/17 04:10 08/01/17 04:10 Most recent lab results Calcium 7.3 mg/dL (8.4-10.2) L 08/01/17 04:10 Urine Creatinine 58.4 mg/dL (0.1-20.0) H 07/28/17 16:20 Urine Sodium 94 mmol/L 07/28/17 16:20
[2017-08-01] MEDS ORDERED: LASIX IV ONE ×2 (10:59→11:30)
--- NOTE | 2017-08-01 12:39 | Progress Note ---
Assessment and Plan Assessment and plan: Cardio-resp arrest at home. Admitted to ICU. All interdisciplinary notes reviewed. Patient is unresponsive, . He is intubated, on vent. Shock. Cardiogenic +/- septic shock. He is off vasopressor, BP is fair. will monitor Acute kidney Injury due to acute tubular necrosis. Improving, Creatinine improved 1.3 today. Nephrology following. CAD s/p CABG. cardiology note reviewed and appreciated Ischemic cardiomyopathy: EF 15 - 20 % Acute Encephalopathy: Secondary to cardiac arrest. Likely anoxic encephalopathy Patient is unresponsive Hypernatremia: Increase free water intake Leukocytosis: Progressively worsening Blood cultures no growth to date. Continue Zosyn/ vanco We'll request ID consult Hyperglycemia: Monitor blood sugars with sliding scale coverage for now Full code status Subjective Date of service: 08/01/17 Principal diagnosis: out of hospital cardiac arrest Interval history: Patient is intubated and unresponsive He is off vasopressors and blood pressure is fair Family is not in the room All interdisciplinary notes reviewed Labs reviewed Objective - Constitutional Vitals: Vital Signs - 12hr 08/01/17 08/01/17 08/01/17 00:40 00:50 01:00 Temperature Pulse Rate 66 66 67 Pulse Rate [ Apical] Pulse Rate [ From Monitor] Pulse Rate [ Right Radial] Respiratory 24 17 19 Rate Blood Pressure 146/83 146/83 152/91 O2 Sat by Pulse 94 95 95 Oximetry 08/01/17 08/01/17 08/01/17 01:10 01:21 01:31 Temperature Pulse Rate 67 69 69 Pulse Rate [ Apical] Pulse Rate [ From Monitor] Pulse Rate [ Right Radial] Respiratory 21 14 17 Rate Blood Pressure 146/83 146/83 146/83 O2 Sat by Pulse 95 94 94 Oximetry 08/01/17 08/01/17 08/01/17 01:41 01:51 02:00 Temperature Pulse Rate 68 68 69 Pulse Rate [ Apical] Pulse Rate [ From Monitor] Pulse Rate [ Right Radial] Respiratory 17 17 24 Rate Blood Pressure 152/91 152/91 147/90 O2 Sat by Pulse 95 96 95 Oximetry 08/01/17 08/01/17 08/01/17 02:11 02:21 02:31 Temperature Pulse Rate 68 66 68 Pulse Rate [ Apical] Pulse Rate [ From Monitor] Pulse Rate [ Right Radial] Respiratory 10 L 12 17 Rate Blood Pressure 147/90 147/90 147/90 O2 Sat by Pulse 94 94 94 Oximetry 08/01/17 08/01/17 08/01/17 02:41 02:51 03:00 Temperature Pulse Rate 68 68 70 Pulse Rate [ Apical] Pulse Rate [ From Monitor] Pulse Rate [ Right Radial] Respiratory 17 18 18 Rate Blood Pressure 147/90 147/90 147/86 O2 Sat by Pulse 95 95 95 Oximetry 08/01/17 08/01/17 08/01/17 03:08 03:10 03:20 Temperature Pulse Rate 72 69 67 Pulse Rate [ Apical] Pulse Rate [ From Monitor] Pulse Rate [ Right Radial] Respiratory 16 24 Rate Blood Pressure 147/86 147/90 147/90 O2 Sat by Pulse 94 94 96 Oximetry 08/01/17 08/01/17 08/01/17 03:30 03:37 03:40 Temperature 97.6 F Pulse Rate 69 70 Pulse Rate [ Apical] Pulse Rate [ From Monitor] Pulse Rate [ Right Radial] Respiratory 19 25 H Rate Blood Pressure 147/90 147/86 O2 Sat by Pulse 95 95 Oximetry 08/01/17 08/01/17 08/01/17 03:50 04:00 04:10 Temperature Pulse Rate 70 70 70 Pulse Rate [ 71 Apical] Pulse Rate [ 71 From Monitor] Pulse Rate [ 71 Right Radial] Respiratory 22 18 21 Rate Blood Pressure 147/86 145/82 145/82 O2 Sat by Pulse 94 95 94 Oximetry 08/01/17 08/01/17 08/01/17 04:20 04:30 04:40 Temperature Pulse Rate 71 70 70 Pulse Rate [ Apical] Pulse Rate [ From Monitor] Pulse Rate [ Right Radial] Respiratory 16 18 19 Rate Blood Pressure 145/82 145/82 145/82 O2 Sat by Pulse 94 94 94 Oximetry 08/01/17 08/01/17 08/01/17 04:50 05:00 05:10 Temperature Pulse Rate 70 72 73 Pulse Rate [ Apical] Pulse Rate [ From Monitor] Pulse Rate [ Right Radial] Respiratory 19 19 16 Rate Blood Pressure 145/82 135/79 135/79 O2 Sat by Pulse 94 94 94 Oximetry 08/01/17 08/01/17 08/01/17 05:21 05:31 05:41 Temperature Pulse Rate 72 72 72 Pulse Rate [ Apical] Pulse Rate [ From Monitor] Pulse Rate [ Right Radial] Respiratory 20 19 18 Rate Blood Pressure 135/79 135/79 135/79 O2 Sat by Pulse 93 94 94 Oximetry 08/01/17 08/01/17 08/01/17 05:51 06:01 06:11 Temperature Pulse Rate 77 72 Pulse Rate [ Apical] Pulse Rate [ From Monitor] Pulse Rate [ Right Radial] Respiratory 16 25 H Rate Blood Pressure 135/79 135/79 135/79 O2 Sat by Pulse 94 92 94 Oximetry 08/01/17 08/01/17 08/01/17 06:21 08:00 09:50 Temperature 99.7 F H Pulse Rate 73 84 Pulse Rate [ Apical] Pulse Rate [ From Monitor] Pulse Rate [ Right Radial] Respiratory 23 Rate Blood Pressure 135/79 156/87 O2 Sat by Pulse 94 93 Oximetry 08/01/17 10:09 Temperature Pulse Rate 84 Pulse Rate [ Apical] Pulse Rate [ From Monitor] Pulse Rate [ Right Radial] Respiratory Rate Blood Pressure 156/87 O2 Sat by Pulse Oximetry General appearance: Present: no acute distress, other (unresponsive) - Neck Neck: supple, no masses or JVD - Respiratory Respiratory effort: other (intubated and on assist control) Respiratory: bilateral: rhonchi - Cardiovascular Rhythm: regular Heart Sounds: Present: S1 & S2 Extremities: No edema - Gastrointestinal General gastrointestinal: Present: soft, non-tender. Absent: hepatomegaly, splenomegaly - Integumentary Integumentary: clear - Labs CBC & Chem 7: 08/01/17 04:10 08/01/17 04:10 Labs: Abnormal lab results 07/31/17 07/31/17 08/01/17 Range/Units 14:36 17:57 00:02 WBC (4.5-11.0) K/mm3 Plt Count (140-440) K/mm3 POC ABG pH (7.35-7.45) POC ABG pCO2 (35-45) POC ABG pO2 (80-105) Sodium (137-145) mmol/L Chloride (98-107) mmol/L Carbon Dioxide (22-30) mmol/L BUN (9-20) mg/dL Glucose (75-100) mg/dL POC Glucose 199 H 216 H 131 H (70-105) Calcium (8.4-10.2) mg/dL 08/01/17 08/01/17 08/01/17 Range/Units 03:22 04:10 04:10 WBC 19.3 H (4.5-11.0) K/mm3 Plt Count 129 L (140-440) K/mm3 POC ABG pH 7.481 H (7.35-7.45) POC ABG pCO2 29.6 L (35-45) POC ABG pO2 65 L (80-105) Sodium 148 H (137-145) mmol/L Chloride 113.2 H (98-107) mmol/L Carbon Dioxide 21 L (22-30) mmol/L BUN 29 H (9-20) mg/dL Glucose 173 H (75-100) mg/dL POC Glucose (70-105) Calcium 7.3 L (8.4-10.2) mg/dL 08/01/17 Range/Units 05:18 WBC (4.5-11.0) K/mm3 Plt Count (140-440) K/mm3 POC ABG pH (7.35-7.45) POC ABG pCO2 (35-45) POC ABG pO2 (80-105) Sodium (137-145) mmol/L Chloride (98-107) mmol/L Carbon Dioxide (22-30) mmol/L BUN (9-20) mg/dL Glucose (75-100) mg/dL POC Glucose 179 H (70-105) Calcium (8.4-10.2) mg/dL
[2017-08-01] MEDS: TYLENOL PO PRN (13:51)
--- NOTE | 2017-08-01 16:18 | Progress Note ---
Assessment and Plan y/o male with out of hospital cardiac arrest (Vfib/Vtach), with acute renal failure, anoxic encephalopathy and metabolic acidosis. Congestive heart failure with ejection fraction of 15-20%. Blood pressure is elevated. Recurrence of fever and progressive elevation in WBC counts. 1. Continue vent support, wean FiO2 for sats >88% 2. Continue to monitor off sedation 3. Reviewed renal note. Follow up renal suggestions and work up. 4. Currently on amio drip, 5. Remains off Vasopressin, 6. Consider cardiology elevation 7. Fever seems to have increased today, we will reculture. Patient is on vancomycin and Zosyn 8. Monitor temperature, given anoxic encephalopathy and negative cultures recently, suspect central fever. 9. Monitor blood pressure, controlled per attending CCT 31 minutes. Subjective Date of service: 08/01/17 Principal diagnosis: out of hospital cardiac arrest Interval history: No significant change remain unresponsive on mechanical ventilator. Family wishes to have neurological evaluation.Now has fevers culture data negative 2- 3 days ago Objective Vital Signs - 12hr 08/01/17 08/01/17 08/01/17 04:20 04:30 04:40 Temperature Pulse Rate 71 70 70 Pulse Rate [ Apical] Pulse Rate [ From Monitor] Pulse Rate [ Left Radial] Pulse Rate [ Right Radial] Respiratory 16 18 19 Rate Blood Pressure 145/82 145/82 145/82 O2 Sat by Pulse 94 94 94 Oximetry 08/01/17 08/01/17 08/01/17 04:50 05:00 05:10 Temperature Pulse Rate 70 72 73 Pulse Rate [ Apical] Pulse Rate [ From Monitor] Pulse Rate [ Left Radial] Pulse Rate [ Right Radial] Respiratory 19 19 16 Rate Blood Pressure 145/82 135/79 135/79 O2 Sat by Pulse 94 94 94 Oximetry 08/01/17 08/01/17 08/01/17 05:21 05:31 05:41 Temperature Pulse Rate 72 72 72 Pulse Rate [ Apical] Pulse Rate [ From Monitor] Pulse Rate [ Left Radial] Pulse Rate [ Right Radial] Respiratory 20 19 18 Rate Blood Pressure 135/79 135/79 135/79 O2 Sat by Pulse 93 94 94 Oximetry 08/01/17 08/01/17 08/01/17 05:51 06:01 06:11 Temperature Pulse Rate 77 72 Pulse Rate [ Apical] Pulse Rate [ From Monitor] Pulse Rate [ Left Radial] Pulse Rate [ Right Radial] Respiratory 16 25 H Rate Blood Pressure 135/79 135/79 135/79 O2 Sat by Pulse 94 92 94 Oximetry 08/01/17 08/01/17 08/01/17 06:21 08:00 09:50 Temperature 99.7 F H Pulse Rate 73 84 Pulse Rate [ 85 Apical] Pulse Rate [ 87 From Monitor] Pulse Rate [ 82 Left Radial] Pulse Rate [ 80 Right Radial] Respiratory 23 15 Rate Blood Pressure 135/79 156/87 O2 Sat by Pulse 94 93 93 Oximetry 08/01/17 08/01/17 10:09 14:45 Temperature Pulse Rate 84 73 Pulse Rate [ Apical] Pulse Rate [ From Monitor] Pulse Rate [ Left Radial] Pulse Rate [ Right Radial] Respiratory Rate Blood Pressure 156/87 143/71 O2 Sat by Pulse 94 Oximetry Constitutional: comatose Eyes: non-icteric ENT: other (orally intubated and sedated) Neck: supple Effort: normal Ascultation: Bilateral: clear Percussion: Bilateral: not dull Cardiovascular: regular rate and rhythm Gastrointestinal: hypoactive bowel sounds Extremities: no edema CBC and BMP: 08/01/17 04:10 08/01/17 04:10 ABG, PT/INR, D-dimer: ABG POC ABG pH 7.481 (7.35-7.45) H 08/01/17 03:22 POC ABG pCO2 29.6 (35-45) L 08/01/17 03:22 POC ABG pO2 65 (80-105) L 08/01/17 03:22 POC ABG HCO3 22.1 08/01/17 03:22 POC ABG Total CO2 23 08/01/17 03:22 POC ABG O2 Sat 94 08/01/17 03:22 PT/INR, D-dimer PT 15.6 Sec. (12.2-14.9) H 07/27/17 18:26 INR 1.18 (0.87-1.13) H 07/27/17 18:26 Abnormal lab findings: Abnormal Labs 07/27/17 07/27/17 07/27/17 18:26 18:26 18:26 WBC 15.6 H MCHC Plt Count 115 L Lymph % (Auto) Gilliam % (Auto) Gilliam # Seg Neutrophils % Lymphocytes % (Manual) 36.0 H Seg Neutrophils # Seg Neutrophils # Man 8.9 H Lymphocytes # (Manual) 5.6 H Monocytes # (Manual) 1.1 H PT 15.6 H INR 1.18 H APTT 38.5 H POC ABG pH POC ABG pCO2 POC ABG pO2 Sodium Potassium Chloride Carbon Dioxide 21 L BUN Creatinine Glucose 252 H POC Glucose Lactic Acid Calcium 7.7 L Total Creatine Kinase CK-MB (CK-2) CK-MB (CK-2) Rel Index Troponin T 0.090 H Triglycerides 190 H LDL Cholesterol Direct 34 L HDL Cholesterol 21 L Urine WBC (Auto) Urine Creatinine 07/27/17 07/27/17 07/27/17 19:02 19:25 21:43 WBC MCHC Plt Count Lymph % (Auto) Gilliam % (Auto) Gilliam # Seg Neutrophils % Lymphocytes % (Manual) Seg Neutrophils # Seg Neutrophils # Man Lymphocytes # (Manual) Monocytes # (Manual) PT INR APTT POC ABG pH 7.155 L POC ABG pCO2 47.7 H POC ABG pO2 229 H Sodium Potassium Chloride Carbon Dioxide BUN Creatinine Glucose POC Glucose Lactic Acid 6.00 H* Calcium Total Creatine Kinase CK-MB (CK-2) 4.8 H CK-MB (CK-2) Rel Index Troponin T 0.149 H* D Triglycerides LDL Cholesterol Direct HDL Cholesterol Urine WBC (Auto) Urine Creatinine 07/27/17 07/27/17 07/28/17 22:47 22:47 01:47 WBC MCHC Plt Count Lymph % (Auto) Gilliam % (Auto) Gilliam # Seg Neutrophils % Lymphocytes % (Manual) Seg Neutrophils # Seg Neutrophils # Man Lymphocytes # (Manual) Monocytes # (Manual) PT INR APTT POC ABG pH POC ABG pCO2 POC ABG pO2 Sodium Potassium Chloride Carbon Dioxide BUN Creatinine Glucose POC Glucose 199 H Lactic Acid 2.40 H* Calcium Total Creatine Kinase 222 H CK-MB (CK-2) 9.4 H CK-MB (CK-2) Rel Index 4.2 H Troponin T 0.852 H* D Triglycerides LDL Cholesterol Direct HDL Cholesterol Urine WBC (Auto) Urine Creatinine 07/28/17 07/28/17 07/28/17 05:29 05:44 05:44 WBC MCHC Plt Count Lymph % (Auto) Gilliam % (Auto) Gilliam # Seg Neutrophils % Lymphocytes % (Manual) Seg Neutrophils # Seg Neutrophils # Man Lymphocytes # (Manual) Monocytes # (Manual) PT INR APTT POC ABG pH 7.268 L POC ABG pCO2 34.8 L POC ABG pO2 Sodium 146 H Potassium 5.1 H D Chloride 113.3 H Carbon Dioxide 18 L BUN 29 H Creatinine 2.0 H D Glucose 194 H POC Glucose Lactic Acid 2.10 H* Calcium 6.8 L Total Creatine Kinase CK-MB (CK-2) CK-MB (CK-2) Rel Index Troponin T Triglycerides LDL Cholesterol Direct HDL Cholesterol Urine WBC (Auto) Urine Creatinine 07/28/17 07/28/17 07/28/17 05:44 06:30 16:00 WBC 16.9 H MCHC 31 L Plt Count Lymph % (Auto) 8.4 L Gilliam % (Auto) 7.5 H Gilliam # 1.3 H Seg Neutrophils % 84.1 H Lymphocytes % (Manual) Seg Neutrophils # 14.2 H Seg Neutrophils # Man Lymphocytes # (Manual) Monocytes # (Manual) PT INR APTT POC ABG pH POC ABG pCO2 POC ABG pO2 Sodium 146 H Potassium Chloride Carbon Dioxide BUN Creatinine 2.4 H Glucose POC Glucose Lactic Acid Calcium Total Creatine Kinase 434 H CK-MB (CK-2) 10.8 H CK-MB (CK-2) Rel Index Troponin T 0.521 H* D Triglycerides LDL Cholesterol Direct HDL Cholesterol Urine WBC (Auto) Urine Creatinine 07/28/17 07/28/17 07/29/17 16:20 16:20 04:02 WBC MCHC Plt Count Lymph % (Auto) Gilliam % (Auto) Gilliam # Seg Neutrophils % Lymphocytes % (Manual) Seg Neutrophils # Seg Neutrophils # Man Lymphocytes # (Manual) Monocytes # (Manual) PT INR APTT POC ABG pH 7.304 L POC ABG pCO2 31.6 L POC ABG pO2 Sodium Potassium Chloride Carbon Dioxide BUN Creatinine Glucose POC Glucose Lactic Acid Calcium Total Creatine Kinase CK-MB (CK-2) CK-MB (CK-2) Rel Index Troponin T Triglycerides LDL Cholesterol Direct HDL Cholesterol Urine WBC (Auto) 12.0 H Urine Creatinine 58.4 H 07/29/17 07/29/17 07/30/17 05:00 Unknown 04:07 WBC 14.4 H MCHC Plt Count 125 L Lymph % (Auto) Gilliam % (Auto) Gilliam # Seg Neutrophils % Lymphocytes % (Manual) Seg Neutrophils # Seg Neutrophils # Man Lymphocytes # (Manual) Monocytes # (Manual) PT INR APTT POC ABG pH 7.319 L POC ABG pCO2 27.8 L POC ABG pO2 121 H Sodium Potassium Chloride 111.7 H Carbon Dioxide 18 L BUN 37 H Creatinine 2.1 H Glucose 213 H POC Glucose Lactic Acid Calcium 6.9 L Total Creatine Kinase CK-MB (CK-2) CK-MB (CK-2) Rel Index Troponin T Triglycerides LDL Cholesterol Direct HDL Cholesterol Urine WBC (Auto) Urine Creatinine 07/30/17 07/30/17 07/30/17 12:43 17:22 23:27 WBC MCHC Plt Count Lymph % (Auto) Gilliam % (Auto) Gilliam # Seg Neutrophils % Lymphocytes % (Manual) Seg Neutrophils # Seg Neutrophils # Man Lymphocytes # (Manual) Monocytes # (Manual) PT INR APTT POC ABG pH POC ABG pCO2 POC ABG pO2 Sodium Potassium Chloride Carbon Dioxide BUN Creatinine Glucose POC Glucose 134 H 117 H 173 H Lactic Acid Calcium Total Creatine Kinase CK-MB (CK-2) CK-MB (CK-2) Rel Index Troponin T Triglycerides LDL Cholesterol Direct HDL Cholesterol Urine WBC (Auto) Urine Creatinine 07/30/17 07/30/17 07/31/17 Unknown Unknown 04:13 WBC 15.6 H MCHC Plt Count 117 L Lymph % (Auto) Gilliam % (Auto) Gilliam # Seg Neutrophils % Lymphocytes % (Manual) Seg Neutrophils # Seg Neutrophils # Man Lymphocytes # (Manual) Monocytes # (Manual) PT INR APTT POC ABG pH POC ABG pCO2 26.8 L POC ABG pO2 74 L Sodium 146 H Potassium Chloride 113.8 H Carbon Dioxide 18 L BUN 36 H Creatinine 1.8 H Glucose 177 H POC Glucose Lactic Acid Calcium 6.9 L Total Creatine Kinase CK-MB (CK-2) CK-MB (CK-2) Rel Index Troponin T Triglycerides LDL Cholesterol Direct HDL Cholesterol Urine WBC (Auto) Urine Creatinine 07/31/17 07/31/17 07/31/17 05:00 05:00 05:01 WBC 18.5 H MCHC Plt Count 135 L Lymph % (Auto) Gilliam % (Auto) Gilliam # Seg Neutrophils % Lymphocytes % (Manual) Seg Neutrophils # Seg Neutrophils # Man Lymphocytes # (Manual) Monocytes # (Manual) PT INR APTT POC ABG pH POC ABG pCO2 POC ABG pO2 Sodium 148 H Potassium Chloride 112.8 H Carbon Dioxide 20 L BUN 33 H Creatinine 1.6 H Glucose 188 H POC Glucose 219 H Lactic Acid Calcium 7.1 L Total Creatine Kinase CK-MB (CK-2) CK-MB (CK-2) Rel Index Troponin T Triglycerides LDL Cholesterol Direct HDL Cholesterol Urine WBC (Auto) Urine Creatinine 07/31/17 07/31/17 08/01/17 14:36 17:57 00:02 WBC MCHC Plt Count Lymph % (Auto) Gilliam % (Auto) Gilliam # Seg Neutrophils % Lymphocytes % (Manual) Seg Neutrophils # Seg Neutrophils # Man Lymphocytes # (Manual) Monocytes # (Manual) PT INR APTT POC ABG pH POC ABG pCO2 POC ABG pO2 Sodium Potassium Chloride Carbon Dioxide BUN Creatinine Glucose POC Glucose 199 H 216 H 131 H Lactic Acid Calcium Total Creatine Kinase CK-MB (CK-2) CK-MB (CK-2) Rel Index Troponin T Triglycerides LDL Cholesterol Direct HDL Cholesterol Urine WBC (Auto) Urine Creatinine 08/01/17 08/01/17 08/01/17 03:22 04:10 04:10 WBC 19.3 H MCHC Plt Count 129 L Lymph % (Auto) Gilliam % (Auto) Gilliam # Seg Neutrophils % Lymphocytes % (Manual) Seg Neutrophils # Seg Neutrophils # Man Lymphocytes # (Manual) Monocytes # (Manual) PT INR APTT POC ABG pH 7.481 H POC ABG pCO2 29.6 L POC ABG pO2 65 L Sodium 148 H Potassium Chloride 113.2 H Carbon Dioxide 21 L BUN 29 H Creatinine Glucose 173 H POC Glucose Lactic Acid Calcium 7.3 L Total Creatine Kinase CK-MB (CK-2) CK-MB (CK-2) Rel Index Troponin T Triglycerides LDL Cholesterol Direct HDL Cholesterol Urine WBC (Auto) Urine Creatinine 08/01/17 05:18 WBC MCHC Plt Count Lymph % (Auto) Gilliam % (Auto) Gilliam # Seg Neutrophils % Lymphocytes % (Manual) Seg Neutrophils # Seg Neutrophils # Man Lymphocytes # (Manual) Monocytes # (Manual) PT INR APTT POC ABG pH POC ABG pCO2 POC ABG pO2 Sodium Potassium Chloride Carbon Dioxide BUN Creatinine Glucose POC Glucose 179 H Lactic Acid Calcium Total Creatine Kinase CK-MB (CK-2) CK-MB (CK-2) Rel Index Troponin T Triglycerides LDL Cholesterol Direct HDL Cholesterol Urine WBC (Auto) Urine Creatinine
--- NOTE | 2017-08-01 16:57 | Consultation ---
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 Per his , patient has been complaining of a- week history of productive yellow cough and chest congestion. He did not have pneumonia or flu shot. Denies sick contact. Denies fever, chills, N/V/D, urinary symptoms. As per verbal report from EMS, patient collapsed, they've had some convulsive-like activity, and lost pulses. EMS reports initial rhythm was either ventricular tachycardia or ventricular fibrillation. Patient received epinephrine in the field, multiple shocks in the field, chest compressions, intubation, high quality CPR, and 300 mg of amiodarone. EMS for further reported that patient was pulseless for approximately 40 minutes prior to arrival to this emergency Department. Upon arrival to the ER, patient is intubated, pupils are fixed and dilated and do not react to light. He is pulseless and his rhythm appears to be pulseless electrical activity. High quality CPR was continued. He was then placed on vasopressor therapy. Initial temperature 99.4, heart rate 28 which went down to 46. Respirations 12. Blood pressure 191/62. Initial white count 15.6. Hemoglobin 13.1. Platelets 115. CT they have the head was negative. Chest x-ray showed left hemidiaphragm elevation and left sided atelectasis. CT chest showed patchy airspace disease with left sided trace pleural effusion. Current Antimicrobials: Zosyn 07/31 Vancomycin 07/31 Previous Antimicrobials: Microbiology: Blood cultures: 07/27 ngtd Respiratory cultures: 07/27 normal resp niko Urine cultures: 07/28 neg Past History Past Medical History: CAD Social history: no significant social history (denies smoking or drinking) Family history: no significant family history (negative for kidney disease) Medications and Allergies Allergies Allergy/AdvReac Type Severity Reaction Status Date / Time acetaminophen [From Vicodin] Allergy Unknown Verified 07/27/17 18:13 hydrocodone [From Vicodin] Allergy Unknown Verified 07/27/17 18:13 zolpidem [From Ambien] Allergy Unknown Verified 07/27/17 18:13 Home Medications Medication Instructions Recorded Confirmed Last Taken Type Aspirin [Aspirin BABY CHEW TAB] 1 tab PO QDAY 07/29/17 07/29/17 07/25/17 History AtorvaSTATin [Lipitor] 40 mg PO QHS 07/29/17 07/29/17 07/25/17 History Clopidogrel [Plavix] 75 mg PO QDAY 07/29/17 07/29/17 07/25/17 History ISOSORBIDE MONOnitrate [Imdur ER] 30 mg PO DAILY 07/29/17 07/29/17 07/25/17 History Spironolactone [Aldactone] 25 mg PO QDAY 07/29/17 07/29/17 07/25/17 History Tamsulosin HCl [Flomax] 1 tab PO QDAY 07/29/17 07/29/17 07/25/17 History Carvedilol [Coreg] 12.5 mg PO BID 07/30/17 07/30/17 07/27/17 09:00 History Sacubitril/Valsartan [Entresto 49 49 - 51 mg PO BID 07/30/17 07/30/17 07/27/17 09:00 History mg-51 mg Tablet] Active Meds: Active Medications Acetaminophen (Tylenol) 650 mg PO Q6HR PRN PRN Reason: Fever Last Admin: 08/01/17 13:51 Dose: 650 mg Albuterol (Proventil) 2.5 mg IH Q3HRT PRN PRN Reason: Shortness Of Breath Amiodarone HCl (Cordarone) 200 mg PO BID [facility] Last Admin: 08/01/17 10:09 Dose: 200 mg Lipase/Protease/Amylase (Pancreaze Dr 10,500 Unit) 1 each FEEDTUBE PRN PRN PRN Reason: For Clogged Feeding Tube Last Admin: 07/31/17 10:07 Dose: 1 each Carvedilol (Coreg) 3.125 mg PO BID [facility] Last Admin: 08/01/17 10:09 Dose: 3.125 mg Famotidine (Pepcid) 20 mg IV BID DANIEL Hydrophilic Ointment (Vaseline Lip Therapy) 1 applic TP Q2HR PRN PRN Reason: Dry Lips Vasopressin 20 unit/ Sodium (Chloride) 101 mls @ 9.09 mls/hr IV TITR DANIEL; 0.03 UNITS/MIN PRN Reason: Protocol Last Titration: 07/30/17 09:21 Dose: 0 units/min, 0 mls/hr Norepinephrine (Levophed Drip 4 Mg/Ns 250 Ml) 4 mg in 250 mls @ 7.5 mls/hr IV TITR DANIEL; 2 MCG/MIN PRN Reason: Protocol Vancomycin HCl 1,250 mg/ (Sodium Chloride) 262.5 mls @ 166.667 mls/hr IV Q24H DANIEL Last Admin: 08/01/17 10:18 Dose: 166.667 mls/hr Piperacillin Sod/Tazobactam Sod (Zosyn/Ns 3.375gm/50ml) 3.375 gm in 50 mls @ 100 mls/hr IV Q6HR DANIEL PRN Reason: Protocol Last Admin: 08/01/17 11:50 Dose: 100 mls/hr Insulin Aspart (Novolog) 0 units SUB-Q QHS DANIEL PRN Reason: Protocol Last Admin: 08/01/17 01:42 Dose: Not Given Insulin Human Regular (Novolin R) 0 units SUB-Q Q6HR DANIEL PRN Reason: Protocol Last Admin: 08/01/17 06:00 Dose: 1 units Multi-Ingred Cream/Lotion/Oil/Oint (Artificial Tears Ophth Oint) 1 applic OU Q4HR PRN PRN Reason: Dry Eye(s) Ondansetron HCl (Zofran) 4 mg IV Q8H PRN PRN Reason: N/V unrelieved by Reglan Simple Syrup (Simple Syrup) 15 ml FEEDTUBE PRN PRN PRN Reason: Hypoglycemia Simple Syrup (Simple Syrup) 30 ml FEEDTUBE PRN PRN PRN Reason: Hypoglycemia Sodium Bicarbonate (Sodium Bicarbonate) 325 mg FEEDTUBE PRN PRN PRN Reason: For Clogged Feeding Tube Last Admin: 07/31/17 10:06 Dose: 162.5 mg Sodium Chloride (Nacl 0.9% 500 Ml) 1 ml IV DIRECT DANIEL Vancomycin HCl (Vancomycin Pharmacy To Dose) 1 each IV PKCONSULT DANIEL PRN Reason: Protocol Review of Systems ROS unobtainable: due to mental status Physical Examination - Physical Exam Narrative exam: General appearance: sedated on the vent Eyes: anicteric sclerae, moist conjunctivae; no lid-lag; PERRLA HENT: Atraumatic; oropharynx +ETT + NGT Neck: Trachea midline; supple, no thyromegaly or lymphadenopathy Lungs: CTA, with normal respiratory effort and no intercostal retractions CV: RRR Abdomen: Soft, non-tender Extremities: No peripheral edema or extremity lymphadenopathy Skin: Normal temperature, turgor and texture; no rash, ulcers or subcutaneous nodules Psych: sedated Neuro: sedated Lines: femoral line - Constitutional Vitals: Vital Signs Temp Pulse Resp BP Pulse Ox 99.7 F H 73 15 143/71 94 08/01/17 08:00 08/01/17 14:45 08/01/17 08:00 08/01/17 14:45 08/01/17 14:45 Temperature -Last 24 Hours Temperature 99.7 F Temperature 97.6 F Temperature 100.1 F Temperature 98 F Results - Labs CBC & Chem 7: 08/01/17 04:10 08/01/17 04:10 Labs: Abnormal lab results 07/31/17 08/01/17 08/01/17 Range/Units 17:57 00:02 03:22 WBC (4.5-11.0) K/mm3 Plt Count (140-440) K/mm3 POC ABG pH 7.481 H (7.35-7.45) POC ABG pCO2 29.6 L (35-45) POC ABG pO2 65 L (80-105) Sodium (137-145) mmol/L Chloride (98-107) mmol/L Carbon Dioxide (22-30) mmol/L BUN (9-20) mg/dL Glucose (75-100) mg/dL POC Glucose 216 H 131 H (70-105) Calcium (8.4-10.2) mg/dL 08/01/17 08/01/17 08/01/17 Range/Units 04:10 04:10 05:18 WBC 19.3 H (4.5-11.0) K/mm3 Plt Count 129 L (140-440) K/mm3 POC ABG pH (7.35-7.45) POC ABG pCO2 (35-45) POC ABG pO2 (80-105) Sodium 148 H (137-145) mmol/L Chloride 113.2 H (98-107) mmol/L Carbon Dioxide 21 L (22-30) mmol/L BUN 29 H (9-20) mg/dL Glucose 173 H (75-100) mg/dL POC Glucose 179 H (70-105) Calcium 7.3 L (8.4-10.2) mg/dL Assessment and Plan Assessment: 1) S/P prolonged cardiac arrest with presumed sepsis with initial septic vs cardiogenic shock: Present on admission, manifested by low grade fever, hypotension, leukocytosis, increased lactate. Septic Etiology most likely - pneumonia. 2) Presumed aspiration versus CAP pneumonia: CT chest showed patchy airspace disease with left sided trace pleural effusion. Resp culture + normal resp niko 3) Respiratory failure 4) Encephalopathy / seizures post cardiac arrest 5) CAD s/p CABG 6) Diabetes, 7) Ischemic cardiac myopathy with an ejection fraction of 20-25% 8) Thrombocytopenia Plan: -follow-up blood cultures -obtain respiratory cultures, C-reactive protein (CRP) -check influenza antigen PCR in nasopharinx -check Legionella urine antigen, Streptococcus pneumoniae urine antigen -continue zosyn and vanco for now -add levaquin -neuro eval +/- brain MRI in view of ongoing seizures Prognosis guarded Thank you Dr Peralta for your consultation, will follow up with you. Kathie Magdaleno MD Infectious Diseases Specialist [facility] ([facility] M [phone] O [phone]
[2017-08-01 21:22] LABS: Bilirubin,Urine NEG (Negative); Blood,Urine MOD (Negative); Color,Urine Yellow (Yellow); Mucus,Urine FEW /HPF; Nitrite,Urine NEG (Negative); Urobilinogen,Urine < 2.0 mg/dL (<2.0)
[2017-08-02] MEDS: ZOSYN/NS 3.375GM/50ML 3.375 GM/50 ML BAG IV SCH ×5 (03:30→23:39)
[2017-08-02 05:15] LABS: Calcium 6.8 mg/dL (8.4-10.2)
[2017-08-02 07:35] LABS: Hematocrit 36.2 % (35.5-45.6); Hemoglobin 11.7 gm/dl (11.8-15.2); Mean Corpuscular HGB Conc 32 % (32-34); Mean Corpuscular Hemoglobin 28 pg (28-32); Mean Corpuscular Volume 86 fl (84-94); Platelet Count 127 K/mm3 (140-440); Red Blood Count 4.22 M/mm3 (3.65-5.03); Red Cell Distribution Width 14.5 % (13.2-15.2)
--- NOTE | 2017-08-02 07:52 | XRay Report ---
PORTABLE CHEST INDICATION: Follow up respiratory failure. COMPARISON: Yesterday. FINDINGS: Portable, frontal chest radiograph, 1:30 PM, 10/03/2016 demonstrates slight increased right lower lung haziness/pleural fluid with greater obscuration of the right hemidiaphragm. Stable left mid to lower lung opacity with obscured hemidiaphragm. Stable cardiomediastinal silhouette/possible cardiomegaly, post CABG changes, endotracheal tube and a Dobbhoff tube looped in the proximal stomach with its tip directed cephalad. EKG leads. Stable bones. CONCLUSION: 1. Mild increased right basilar hazy opacity/effusion, as above. 2. Otherwise stable exam. Thank you for the opportunity to participate in this patient's care.
[2017-08-02] MEDS: PEPCID IV SCH ×2 (09:13→21:41)
[2017-08-02] MEDS: COREG PO SCH ×2 (09:13→21:41)
[2017-08-02] MEDS: CORDARONE PO SCH ×2 (09:13→21:42)
[2017-08-02] MEDS: VANCOMYCIN 1,250 MG in NACL 0.9% 250ML 250 ML IV SCH (09:13)
--- NOTE | 2017-08-02 11:01 | Progress Note ---
Assessment and Plan Assessment: 1) S/P prolonged cardiac arrest with presumed sepsis with initial septic vs cardiogenic shock: still high fever and worsening leukocytosis. Etiology ? pneumonia 2) Presumed aspiration versus CAP pneumonia: -CT chest showed patchy airspace disease with left sided trace pleural effusion. -Resp culture + normal resp niko -CXR repeat increased RLL opacities -influenza neg -crp=4 3) Respiratory failure 4) Encephalopathy / seizures post cardiac arrest 5) CAD s/p CABG 6) Diabetes 7) Ischemic cardiac myopathy with an ejection fraction of 20-25% 8) Thrombocytopenia - better Plan: -follow-up Legionella urine antigen, Streptococcus pneumoniae urine antigen -continue zosyn - day 3 -stop vanco for now -neuro eval +/- brain MRI in view of ongoing seizures Prognosis guarded Thank you Dr Hernandez for your consultation, will follow up with you. Kathie Magdaleno MD Infectious Diseases Specialist [facility] ([facility]) M [phone] O [phone] Subjective Date of service: 08/02/17 Principal diagnosis: out of hospital cardiac arrest Interval history: Remains on the vent on CPAP, intubated, had a tmax 103.7 Current Antimicrobials: Zosyn 07/31 Vancomycin 07/31 Previous Antimicrobials: Microbiology: Blood cultures: 07/27 ngtd Respiratory cultures: 07/27 normal resp niko Urine cultures: 07/28 neg Objective - Exam Narrative Exam: General appearance: sedated on the vent Eyes: anicteric sclerae, moist conjunctivae; no lid-lag; PERRLA HENT: Atraumatic; oropharynx +ETT + NGT Neck: Trachea midline; supple, no thyromegaly or lymphadenopathy Lungs: marcin rhonchi CV: RRR Abdomen: Soft, non-tender Extremities: No peripheral edema or extremity lymphadenopathy Skin: Normal temperature, turgor and texture; no rash, ulcers or subcutaneous nodules Psych: sedated Neuro: sedated Lines: femoral line - Constitutional Vitals: Vital Signs Temp Pulse Resp BP Pulse Ox 99.5 F 72 32 H 159/94 94 08/02/17 10:11 08/02/17 10:10 08/02/17 10:10 08/02/17 10:10 08/02/17 10:10 Temperature -Last 24 Hours Temperature 99.5 F Temperature 99.1 F Temperature 98.9 F Temperature 99.0 F Temperature 100.7 F Temperature 103.1 F - Labs CBC & Chem 7: 08/02/17 07:09 08/02/17 04:10 Labs: Abnormal lab results 07/28/17 07/28/17 08/01/17 Range/Units 16:00 16:00 11:55 WBC (4.5-11.0) K/mm3 Hgb (11.8-15.2) gm/dl Plt Count (140-440) K/mm3 POC ABG pH (7.35-7.45) POC ABG pCO2 (35-45) POC ABG pO2 (80-105) Sodium (137-145) mmol/L Chloride (98-107) mmol/L BUN (9-20) mg/dL Glucose (75-100) mg/dL POC Glucose 174 H (70-105) Calcium (8.4-10.2) mg/dL C-Reactive Protein (0.00-1.30) mg/dL Complement C3 67 L (90-180) mg/dL Complement C4 14 L (16-47) mg/dL 08/01/17 08/01/17 08/01/17 Range/Units 18:13 19:42 22:01 WBC (4.5-11.0) K/mm3 Hgb (11.8-15.2) gm/dl Plt Count (140-440) K/mm3 POC ABG pH (7.35-7.45) POC ABG pCO2 (35-45) POC ABG pO2 (80-105) Sodium (137-145) mmol/L Chloride (98-107) mmol/L BUN (9-20) mg/dL Glucose (75-100) mg/dL POC Glucose 189 H 165 H (70-105) Calcium (8.4-10.2) mg/dL C-Reactive Protein 4.00 H (0.00-1.30) mg/dL Complement C3 (90-180) mg/dL Complement C4 (16-47) mg/dL 08/02/17 08/02/17 08/02/17 Range/Units 03:40 04:10 06:00 WBC (4.5-11.0) K/mm3 Hgb (11.8-15.2) gm/dl Plt Count (140-440) K/mm3 POC ABG pH 7.474 H (7.35-7.45) POC ABG pCO2 33.8 L (35-45) POC ABG pO2 73 L (80-105) Sodium 148 H (137-145) mmol/L Chloride 109.3 H (98-107) mmol/L BUN 31 H (9-20) mg/dL Glucose 168 H (75-100) mg/dL POC Glucose 172 H (70-105) Calcium 6.8 L (8.4-10.2) mg/dL C-Reactive Protein (0.00-1.30) mg/dL Complement C3 (90-180) mg/dL Complement C4 (16-47) mg/dL 08/02/17 Range/Units 07:09 WBC 20.1 H (4.5-11.0) K/mm3 Hgb 11.7 L (11.8-15.2) gm/dl Plt Count 127 L (140-440) K/mm3 POC ABG pH (7.35-7.45) POC ABG pCO2 (35-45) POC ABG pO2 (80-105) Sodium (137-145) mmol/L Chloride (98-107) mmol/L BUN (9-20) mg/dL Glucose (75-100) mg/dL POC Glucose (70-105) Calcium (8.4-10.2) mg/dL C-Reactive Protein (0.00-1.30) mg/dL Complement C3 (90-180) mg/dL Complement C4 (16-47) mg/dL
--- NOTE | 2017-08-02 11:33 | Progress Note ---
Assessment and Plan Impression * Acute renal failure * Status post cardiac arrest * History of coronary artery disease * Hypertension * Mild metabolic acidosis * Hypernatremia Recommendations * His serum creatinine seems to be leveling off. His fractional excretion of sodium is 2.6%. He most likely has ATN. * He is currently nonoliguric No indication for dialysis at this time. * Serum sodium is still elevated. Continue free water to the NG tube. * He is getting edematous and blood pressure is elevated. His IV fluids have been discontinued. * His urine did show 2+ dipstick protein and moderate blood. Follow-up results of vasculitis workup. * Hepatitis B and C both are negative * His acidosis has been corrected. Shall discontinue oral sodium bicarbonate * CT scan of his abdomen showed bilateral kidney cysts as well as stones * Monitor fluid status and electrolytes closely. * Avoid nephrotoxins * His blood pressure is better today. * Discussed with patient's family at bedside Subjective Date of service: 08/02/17 Principal diagnosis: out of hospital cardiac arrest Interval history: Patient remains on the ventilator. On 25% FiO2. Unresponsive. Objective - Vital Signs Vital signs: Vital Signs - 12hr 08/01/17 08/01/17 08/02/17 23:40 23:50 00:00 Temperature 98.9 F Pulse Rate 61 66 62 Pulse Rate [ From Monitor] Respiratory 16 15 19 Rate Respiratory Rate [ Generalized] Blood Pressure 140/79 140/79 142/84 O2 Sat by Pulse 95 96 94 Oximetry 08/02/17 08/02/17 08/02/17 00:10 00:20 00:30 Temperature Pulse Rate 63 63 68 Pulse Rate [ From Monitor] Respiratory 17 17 19 Rate Respiratory Rate [ Generalized] Blood Pressure 142/84 142/84 142/84 O2 Sat by Pulse 95 94 95 Oximetry 08/02/17 08/02/17 08/02/17 00:40 00:45 00:50 Temperature Pulse Rate 74 63 64 Pulse Rate [ From Monitor] Respiratory 24 16 20 Rate Respiratory 17 Rate [ Generalized] Blood Pressure 142/84 142/84 O2 Sat by Pulse 91 96 93 Oximetry 08/02/17 08/02/17 08/02/17 01:00 01:10 01:20 Temperature Pulse Rate 65 64 64 Pulse Rate [ From Monitor] Respiratory 17 17 23 Rate Respiratory Rate [ Generalized] Blood Pressure 149/92 149/92 149/92 O2 Sat by Pulse 93 93 93 Oximetry 08/02/17 08/02/17 08/02/17 01:30 01:40 01:50 Temperature Pulse Rate 63 63 62 Pulse Rate [ From Monitor] Respiratory 16 18 17 Rate Respiratory Rate [ Generalized] Blood Pressure 149/92 149/92 149/92 O2 Sat by Pulse 94 93 94 Oximetry 08/02/17 08/02/17 08/02/17 02:00 02:10 02:20 Temperature Pulse Rate 63 63 63 Pulse Rate [ From Monitor] Respiratory 17 19 18 Rate Respiratory Rate [ Generalized] Blood Pressure 150/86 150/86 150/86 O2 Sat by Pulse 94 94 94 Oximetry 08/02/17 08/02/17 08/02/17 02:30 02:40 02:50 Temperature Pulse Rate 63 64 63 Pulse Rate [ From Monitor] Respiratory 22 18 19 Rate Respiratory Rate [ Generalized] Blood Pressure 150/86 150/86 150/86 O2 Sat by Pulse 94 94 94 Oximetry 08/02/17 08/02/17 08/02/17 02:55 03:00 03:10 Temperature Pulse Rate 63 63 Pulse Rate [ From Monitor] Respiratory 16 16 20 Rate Respiratory Rate [ Generalized] Blood Pressure 150/86 150/86 O2 Sat by Pulse 96 95 94 Oximetry 08/02/17 08/02/17 08/02/17 03:20 03:26 03:30 Temperature Pulse Rate 64 64 64 Pulse Rate [ From Monitor] Respiratory 20 18 Rate Respiratory Rate [ Generalized] Blood Pressure 150/86 150/86 150/86 O2 Sat by Pulse 94 95 95 Oximetry 08/02/17 08/02/17 08/02/17 03:40 03:50 04:00 Temperature 99.1 F Pulse Rate 65 63 64 Pulse Rate [ From Monitor] Respiratory 20 18 17 Rate Respiratory Rate [ Generalized] Blood Pressure 150/86 150/86 152/85 O2 Sat by Pulse 95 95 95 Oximetry 08/02/17 08/02/17 08/02/17 04:10 04:20 04:30 Temperature Pulse Rate 64 65 64 Pulse Rate [ From Monitor] Respiratory 20 23 16 Rate Respiratory Rate [ Generalized] Blood Pressure 150/86 150/86 150/86 O2 Sat by Pulse 95 95 95 Oximetry 08/02/17 08/02/17 08/02/17 04:40 04:50 05:00 Temperature Pulse Rate 63 66 65 Pulse Rate [ From Monitor] Respiratory 23 22 17 Rate Respiratory Rate [ Generalized] Blood Pressure 150/86 150/86 155/89 O2 Sat by Pulse 95 95 96 Oximetry 08/02/17 08/02/17 08/02/17 05:10 05:20 05:30 Temperature Pulse Rate 64 63 63 Pulse Rate [ From Monitor] Respiratory 19 19 17 Rate Respiratory Rate [ Generalized] Blood Pressure 155/89 155/89 155/89 O2 Sat by Pulse 95 96 95 Oximetry 08/02/17 08/02/17 08/02/17 05:40 05:50 06:00 Temperature Pulse Rate 64 63 63 Pulse Rate [ From Monitor] Respiratory 20 18 16 Rate Respiratory Rate [ Generalized] Blood Pressure 155/89 155/89 133/76 O2 Sat by Pulse 95 94 94 Oximetry 08/02/17 08/02/17 08/02/17 06:03 06:10 06:20 Temperature Pulse Rate 71 67 Pulse Rate [ From Monitor] Respiratory 26 H 17 Rate Respiratory Rate [ Generalized] Blood Pressure 155/89 155/89 O2 Sat by Pulse 96 95 95 Oximetry 08/02/17 08/02/17 08/02/17 06:30 06:40 06:50 Temperature Pulse Rate 70 71 67 Pulse Rate [ From Monitor] Respiratory 16 24 25 H Rate Respiratory Rate [ Generalized] Blood Pressure 155/89 133/76 133/76 O2 Sat by Pulse 93 96 95 Oximetry 08/02/17 08/02/17 08/02/17 07:00 07:10 07:20 Temperature Pulse Rate 67 67 68 Pulse Rate [ From Monitor] Respiratory 19 19 25 H Rate Respiratory Rate [ Generalized] Blood Pressure 152/85 152/85 152/85 O2 Sat by Pulse 95 95 95 Oximetry 08/02/17 08/02/17 08/02/17 07:30 07:40 07:50 Temperature Pulse Rate 68 68 68 Pulse Rate [ From Monitor] Respiratory 22 21 21 Rate Respiratory Rate [ Generalized] Blood Pressure 152/85 152/85 152/85 O2 Sat by Pulse 95 95 95 Oximetry 08/02/17 08/02/17 08/02/17 08:00 08:10 08:20 Temperature Pulse Rate 67 68 68 Pulse Rate [ 72 From Monitor] Respiratory 19 17 19 Rate Respiratory Rate [ Generalized] Blood Pressure 146/83 146/83 146/83 O2 Sat by Pulse 95 95 95 Oximetry 12/08/02/17 08/02/17 08:30 08:40 08:50 Temperature Pulse Rate 68 69 70 Pulse Rate [ From Monitor] Respiratory 19 29 H 29 H Rate Respiratory Rate [ Generalized] Blood Pressure 146/83 146/83 146/83 O2 Sat by Pulse 95 94 95 Oximetry 08/02/17 08/02/17 08/02/17 09:00 09:10 09:13 Temperature Pulse Rate 72 71 71 Pulse Rate [ From Monitor] Respiratory 30 H 31 H Rate Respiratory Rate [ Generalized] Blood Pressure 146/83 156/87 156/87 O2 Sat by Pulse 94 94 Oximetry 08/02/17 08/02/17 08/02/17 09:20 09:30 09:40 Temperature Pulse Rate 72 71 71 Pulse Rate [ From Monitor] Respiratory 33 H 31 H 33 H Rate Respiratory Rate [ Generalized] Blood Pressure 156/87 156/87 156/87 O2 Sat by Pulse 94 94 94 Oximetry 08/02/17 08/02/17 08/02/17 09:50 10:00 10:10 Temperature Pulse Rate 72 81 72 Pulse Rate [ From Monitor] Respiratory 30 H 32 H 32 H Rate Respiratory Rate [ Generalized] Blood Pressure 156/87 156/87 159/94 O2 Sat by Pulse 94 88 94 Oximetry 08/02/17 10:11 Temperature 99.5 F Pulse Rate Pulse Rate [ From Monitor] Respiratory Rate Respiratory Rate [ Generalized] Blood Pressure O2 Sat by Pulse Oximetry - General Appearance General appearance: well-developed, well-nourished, appears stated age, intubated EENT: PERRL, mucous membranes moist Neck: no JVD, no thyromegaly, no carotid bruit, supple Respiratory: Present: Clear to Ascultation Cardiology: regular, normal heart rate, S1S2, no murmurs Gastrointestinal: normal, normoactive bowel sounds Integumentary: no rash, other (trace to 1+ edema) - Lab 08/02/17 07:09 08/02/17 04:10 Most recent lab results Calcium 6.8 mg/dL (8.4-10.2) L 08/02/17 04:10 Urine Creatinine 58.4 mg/dL (0.1-20.0) H 07/28/17 16:20 Urine Sodium 94 mmol/L 07/28/17 16:20
--- NOTE | 2017-08-02 12:08 | Progress Note ---
Assessment and Plan - Patient Problems (1) Cardiac arrest Current Visit: Yes Status: Acute Plan to address problem: Patient is status post out of hospital cardiopulmonary arrest. Cardiac arrest was manifested by ventricular fibrillation. Post resuscitation, has remained stable sinus rhythm on IV and now oral amiodarone. He has a history of coronary artery disease, previous coronary artery bypass, ischemic cardiomyopathy. He is reported to have declined a recommendation for prophylactic ICD by his doctors at [facility]. We'll continue supportive care for his hemodynamics and continue anti-ischemic cardiac medications as tolerated. Neurology consultation and follow-up is in place for his neuro status assessment. Subjective Date of service: 08/02/17 Principal diagnosis: out of hospital cardiac arrest Interval history: Patient is unresponsive, on the vent, stable sinus rhythm on traffic monitor specialist, blood pressure 150 systolic. Objective Vital Signs Temp Pulse Pulse Resp Resp BP Pulse Ox 08/02/17 11:30 67 27 H 146/94 94 08/02/17 11:20 68 30 H 146/94 93 08/02/17 11:10 75 29 H 146/94 94 08/02/17 11:00 69 24 146/94 94 08/02/17 10:50 68 29 H 159/94 95 08/02/17 10:40 69 30 H 159/94 95 08/02/17 10:30 71 30 H 159/94 94 08/02/17 10:20 71 30 H 159/94 94 08/02/17 10:11 99.5 F 08/02/17 10:10 72 32 H 159/94 94 08/02/17 10:00 81 32 H 156/87 88 08/02/17 09:50 72 30 H 156/87 94 08/02/17 09:40 71 33 H 156/87 94 08/02/17 09:30 71 31 H 156/87 94 08/02/17 09:20 72 33 H 156/87 94 08/02/17 09:13 71 156/87 08/02/17 09:10 71 31 H 156/87 94 08/02/17 09:00 72 30 H 146/83 94 08/02/17 08:50 70 29 H 146/83 95 08/02/17 08:40 69 29 H 146/83 94 08/02/17 08:30 68 19 146/83 95 08/02/17 08:20 68 19 146/83 95 08/02/17 08:10 68 17 146/83 95 08/02/17 08:00 67 72 19 146/83 95 08/02/17 07:50 68 21 152/85 95 08/02/17 07:40 68 21 152/85 95 08/02/17 07:30 68 22 152/85 95 08/02/17 07:20 68 25 H 152/85 95 08/02/17 07:10 67 19 152/85 95 08/02/17 07:00 67 19 152/85 95 08/02/17 06:50 67 25 H 133/76 95 08/02/17 06:40 71 24 133/76 96 08/02/17 06:30 70 16 155/89 93 08/02/17 06:20 67 17 155/89 95 08/02/17 06:10 71 26 H 155/89 95 08/02/17 06:03 96 08/02/17 06:00 63 16 133/76 94 08/02/17 05:50 63 18 155/89 94 08/02/17 05:40 64 20 155/89 95 08/02/17 05:30 63 17 155/89 95 08/02/17 05:20 63 19 155/89 96 08/02/17 05:10 64 19 155/89 95 08/02/17 05:00 65 17 155/89 96 08/02/17 04:50 66 22 150/86 95 08/02/17 04:40 63 23 150/86 95 08/02/17 04:30 64 16 150/86 95 08/02/17 04:20 65 23 150/86 95 08/02/17 04:10 64 20 150/86 95 08/02/17 04:00 99.1 F 64 17 152/85 95 08/02/17 03:50 63 18 150/86 95 08/02/17 03:40 65 20 150/86 95 08/02/17 03:30 64 18 150/86 95 08/02/17 03:26 64 150/86 95 08/02/17 03:20 64 20 150/86 94 08/02/17 03:10 63 20 150/86 94 08/02/17 03:00 63 16 150/86 95 08/02/17 02:55 16 96 08/02/17 02:50 63 19 150/86 94 08/02/17 02:40 64 18 150/86 94 08/02/17 02:30 63 22 150/86 94 08/02/17 02:20 63 18 150/86 94 08/02/17 02:10 63 19 150/86 94 08/02/17 02:00 63 17 150/86 94 08/02/17 01:50 62 17 149/92 94 08/02/17 01:40 63 18 149/92 93 08/02/17 01:30 63 16 149/92 94 08/02/17 01:20 64 23 149/92 93 08/02/17 01:10 64 17 149/92 93 08/02/17 01:00 65 17 149/92 93 08/02/17 00:50 64 20 142/84 93 08/02/17 00:45 63 16 17 96 08/02/17 00:40 74 24 142/84 91 08/02/17 00:30 68 19 142/84 95 08/02/17 00:20 63 17 142/84 94 08/02/17 00:10 63 17 142/84 95 08/02/17 00:00 98.9 F 62 19 142/84 94 08/01/17 23:50 66 15 140/79 96 08/01/17 23:40 61 16 140/79 95 08/01/17 23:30 62 21 140/79 95 08/01/17 23:20 62 15 140/79 95 08/01/17 23:19 62 140/79 95 08/01/17 23:10 63 19 95 08/01/17 23:00 61 13 126/69 95 08/01/17 22:51 61 16 126/69 95 08/01/17 22:41 62 19 126/69 95 08/01/17 22:31 64 23 126/69 95 08/01/17 22:21 64 20 126/69 95 08/01/17 22:11 66 19 126/69 95 08/01/17 22:10 61 17 17 96 08/01/17 22:07 69 15 126/69 95 08/01/17 22:02 61 125/69 08/01/17 22:00 61 15 126/69 92 08/01/17 21:51 63 16 125/69 92 08/01/17 21:41 60 17 125/69 93 08/01/17 21:31 60 16 125/69 94 08/01/17 21:21 61 18 125/69 94 08/01/17 21:11 60 16 125/69 94 08/01/17 21:00 60 17 125/69 94 08/01/17 20:51 60 18 118/71 94 08/01/17 20:41 59 L 16 118/71 94 08/01/17 20:31 60 20 118/71 94 08/01/17 20:21 59 L 16 118/71 93 08/01/17 20:11 60 16 118/71 93 08/01/17 20:00 99.0 F 59 L 16 118/71 93 08/01/17 19:51 59 L 18 125/71 94 08/01/17 19:45 59 L 16 97 08/01/17 19:41 60 18 125/71 94 08/01/17 19:33 60 125/71 94 08/01/17 19:31 59 L 20 125/71 93 08/01/17 19:21 57 L 16 125/71 96 08/01/17 19:11 59 L 16 125/71 95 08/01/17 19:00 59 L 16 125/71 94 08/01/17 18:51 60 17 119/71 95 08/01/17 18:41 60 17 119/71 95 08/01/17 18:40 70 119/71 95 08/01/17 18:31 61 17 119/71 95 08/01/17 18:20 61 16 119/71 94 08/01/17 18:10 62 16 119/71 94 08/01/17 18:00 62 16 119/71 94 08/01/17 17:50 63 16 139/81 94 08/01/17 17:40 64 18 139/81 95 08/01/17 17:30 64 16 139/81 95 08/01/17 17:20 64 18 139/81 95 08/01/17 17:10 64 19 139/81 94 08/01/17 17:00 66 22 135/72 94 08/01/17 16:50 65 18 135/72 95 08/01/17 16:40 68 23 135/72 94 08/01/17 16:30 67 19 135/72 93 08/01/17 16:20 68 18 135/72 94 08/01/17 16:10 72 19 135/72 94 08/01/17 16:00 100.7 F H 69 17 143/71 93 08/01/17 15:50 71 17 143/71 94 08/01/17 15:40 73 17 143/71 94 08/01/17 15:30 74 26 H 143/71 93 08/01/17 15:20 79 18 143/71 94 08/01/17 15:10 72 23 143/71 93 08/01/17 15:00 77 24 143/71 92 08/01/17 14:50 72 26 H 141/75 92 08/01/17 14:45 73 143/71 94 08/01/17 14:40 77 25 H 141/75 92 08/01/17 14:30 78 17 141/75 91 08/01/17 14:20 80 20 141/75 91 08/01/17 14:10 85 23 141/75 91 08/01/17 14:00 78 28 H 148/87 93 08/01/17 13:50 79 29 H 148/87 93 08/01/17 13:40 79 29 H 148/87 93 08/01/17 13:30 80 25 H 148/87 93 08/01/17 13:20 80 24 148/87 93 08/01/17 13:10 80 19 148/87 93 08/01/17 13:00 80 22 148/87 93 08/01/17 12:50 80 20 164/95 93 08/01/17 12:40 80 22 164/95 93 08/01/17 12:30 88 26 H 164/95 92 08/01/17 12:20 83 29 H 164/95 93 08/01/17 12:10 83 26 H 164/95 91 - Physical Examination General: Other (intubated on the vent) Neck: Positive: neck supple, trachea midline. Negative: JVD/HJR, Masses Cardiac: Positive: Reg Rate and Rhythm Lungs: Positive: Decreased Breath Sounds Neuro: Positive: Other (unresponsive on the vent) Abdomen: Positive: Soft Skin: Positive: Clear Extremities: Absent: edema - Labs and Meds CBC 08/02/17 Range/Units 07:09 WBC 20.1 H (4.5-11.0) K/mm3 RBC 4.22 (3.65-5.03) M/mm3 Hgb 11.7 L (11.8-15.2) gm/dl Hct 36.2 (35.5-45.6) % Plt Count 127 L (140-440) K/mm3 Comprehensive Metabolic Panel 08/02/17 Range/Units 04:10 Sodium 148 H (137-145) mmol/L Potassium 3.7 (3.6-5.0) mmol/L Chloride 109.3 H (98-107) mmol/L Carbon Dioxide 26 (22-30) mmol/L BUN 31 H (9-20) mg/dL Creatinine 1.4 (0.8-1.5) mg/dL Glucose 168 H (75-100) mg/dL Calcium 6.8 L (8.4-10.2) mg/dL - Imaging and Cardiology EKG: image reviewed
--- NOTE | 2017-08-02 15:18 | Progress Note ---
Assessment and Plan Imp: 1. S/p CP arrest, ? primary cardiac event (e.g. arrhythmia) in setting of ICMP 2. Anoxic enceph 3. Acute respiratory failure, hypoxia 4. KATELYN 5. Hypernatremia 6. ICMP 7. 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 ? LLL aspiration pneumonia/sepsis Rec: 1. ABX per ID; f/u cultures; fever may be central 2. Remove groin line as has been HD stable off pressors 3. Hold all sedation 4. D/c IVFs; cont. TFs; increase free water per FT 5. Awaiting neurology recs/EEG, etc. 6. GI PPx 7. SCDs; monitor platelets 8. Guarded prognosis Plan of care reviewed with patient's , she understand/agree CCt 31 minutes Subjective Date of service: 08/02/17 Principal diagnosis: out of hospital cardiac arrest Interval history: No events. On vent. Unresponsive although eyes open. Off all pressors. Active Medications Acetaminophen (Tylenol) 650 mg PO Q6HR PRN PRN Reason: Fever Last Admin: 08/01/17 13:51 Dose: 650 mg Albuterol (Proventil) 2.5 mg IH Q3HRT PRN PRN Reason: Shortness Of Breath Amiodarone HCl (Cordarone) 200 mg PO BID [facility] Last Admin: 08/02/17 09:13 Dose: 200 mg Lipase/Protease/Amylase (Pancreaze Dr 10,500 Unit) 1 each FEEDTUBE PRN PRN PRN Reason: For Clogged Feeding Tube Last Admin: 07/31/17 10:07 Dose: 1 each Carvedilol (Coreg) 3.125 mg PO BID [facility] Last Admin: 08/02/17 09:13 Dose: 3.125 mg Famotidine (Pepcid) 20 mg IV BID [facility] Last Admin: 08/02/17 09:13 Dose: 20 mg Hydrophilic Ointment (Vaseline Lip Therapy) 1 applic TP Q2HR PRN PRN Reason: Dry Lips Vasopressin 20 unit/ Sodium (Chloride) 101 mls @ 9.09 mls/hr IV TITR DANIEL; 0.03 UNITS/MIN PRN Reason: Protocol Last Titration: 07/30/17 09:21 Dose: 0 units/min, 0 mls/hr Norepinephrine (Levophed Drip 4 Mg/Ns 250 Ml) 4 mg in 250 mls @ 7.5 mls/hr IV TITR DANIEL; 2 MCG/MIN PRN Reason: Protocol Piperacillin Sod/Tazobactam Sod (Zosyn/Ns 3.375gm/50ml) 3.375 gm in 50 mls @ 100 mls/hr IV Q6HR DANIEL PRN Reason: Protocol Last Admin: 08/02/17 13:29 Dose: 100 mls/hr Insulin Aspart (Novolog) 0 units SUB-Q QHS DANIEL PRN Reason: Protocol Last Admin: 08/01/17 22:02 Dose: 2 units Insulin Human Regular (Novolin R) 0 units SUB-Q Q6HR DANIEL PRN Reason: Protocol Last Admin: 08/02/17 12:59 Dose: Not Given Lorazepam (Ativan) 1 mg IV Q4H PRN PRN Reason: seizures/twitching Multi-Ingred Cream/Lotion/Oil/Oint (Artificial Tears Ophth Oint) 1 applic OU Q4HR PRN PRN Reason: Dry Eye(s) Ondansetron HCl (Zofran) 4 mg IV Q8H PRN PRN Reason: N/V unrelieved by Reglan Simple Syrup (Simple Syrup) 15 ml FEEDTUBE PRN PRN PRN Reason: Hypoglycemia Simple Syrup (Simple Syrup) 30 ml FEEDTUBE PRN PRN PRN Reason: Hypoglycemia Sodium Chloride (Nacl 0.9% 500 Ml) 1 ml IV DIRECT DANIEL Vancomycin HCl (Vancomycin Pharmacy To Dose) 1 each IV PKCONSULT DANIEL PRN Reason: Protocol Objective Vital Signs - 12hr 08/02/17 08/02/17 08/02/17 03:20 03:26 03:30 Temperature Pulse Rate 64 64 64 Pulse Rate [ From Monitor] Respiratory 20 18 Rate Blood Pressure 150/86 150/86 150/86 O2 Sat by Pulse 94 95 95 Oximetry 08/02/17 08/02/17 08/02/17 03:40 03:50 04:00 Temperature 99.1 F Pulse Rate 65 63 64 Pulse Rate [ From Monitor] Respiratory 20 18 17 Rate Blood Pressure 150/86 150/86 152/85 O2 Sat by Pulse 95 95 95 Oximetry 08/02/17 08/02/17 08/02/17 04:10 04:20 04:30 Temperature Pulse Rate 64 65 64 Pulse Rate [ From Monitor] Respiratory 20 23 16 Rate Blood Pressure 150/86 150/86 150/86 O2 Sat by Pulse 95 95 95 Oximetry 08/02/17 08/02/17 08/02/17 04:40 04:50 05:00 Temperature Pulse Rate 63 66 65 Pulse Rate [ From Monitor] Respiratory 23 22 17 Rate Blood Pressure 150/86 150/86 155/89 O2 Sat by Pulse 95 95 96 Oximetry 08/02/17 08/02/17 08/02/17 05:10 05:20 05:30 Temperature Pulse Rate 64 63 63 Pulse Rate [ From Monitor] Respiratory 19 19 17 Rate Blood Pressure 155/89 155/89 155/89 O2 Sat by Pulse 95 96 95 Oximetry 08/02/17 08/02/17 08/02/17 05:40 05:50 06:00 Temperature Pulse Rate 64 63 63 Pulse Rate [ From Monitor] Respiratory 20 18 16 Rate Blood Pressure 155/89 155/89 133/76 O2 Sat by Pulse 95 94 94 Oximetry 08/02/17 08/02/17 08/02/17 06:03 06:10 06:20 Temperature Pulse Rate 71 67 Pulse Rate [ From Monitor] Respiratory 26 H 17 Rate Blood Pressure 155/89 155/89 O2 Sat by Pulse 96 95 95 Oximetry 08/02/17 08/02/17 08/02/17 06:30 06:40 06:50 Temperature Pulse Rate 70 71 67 Pulse Rate [ From Monitor] Respiratory 16 24 25 H Rate Blood Pressure 155/89 133/76 133/76 O2 Sat by Pulse 93 96 95 Oximetry 08/02/17 08/02/17 08/02/17 07:00 07:10 07:20 Temperature Pulse Rate 67 67 68 Pulse Rate [ From Monitor] Respiratory 19 19 25 H Rate Blood Pressure 152/85 152/85 152/85 O2 Sat by Pulse 95 95 95 Oximetry 08/02/17 08/02/17 08/02/17 07:30 07:40 07:50 Temperature Pulse Rate 68 68 68 Pulse Rate [ From Monitor] Respiratory 22 21 21 Rate Blood Pressure 152/85 152/85 152/85 O2 Sat by Pulse 95 95 95 Oximetry 08/02/17 08/02/17 08/02/17 08:00 08:10 08:20 Temperature Pulse Rate 67 68 68 Pulse Rate [ 72 From Monitor] Respiratory 19 17 19 Rate Blood Pressure 146/83 146/83 146/83 O2 Sat by Pulse 95 95 95 Oximetry 08/02/17 08/02/17 08/02/17 08:30 08:40 08:50 Temperature Pulse Rate 68 69 70 Pulse Rate [ From Monitor] Respiratory 19 29 H 29 H Rate Blood Pressure 146/83 146/83 146/83 O2 Sat by Pulse 95 94 95 Oximetry 08/02/17 08/02/17 08/02/17 09:00 09:10 09:13 Temperature Pulse Rate 72 71 71 Pulse Rate [ From Monitor] Respiratory 30 H 31 H Rate Blood Pressure 146/83 156/87 156/87 O2 Sat by Pulse 94 94 Oximetry 08/02/17 08/02/17 08/02/17 09:20 09:30 09:40 Temperature Pulse Rate 72 71 71 Pulse Rate [ From Monitor] Respiratory 33 H 31 H 33 H Rate Blood Pressure 156/87 156/87 156/87 O2 Sat by Pulse 94 94 94 Oximetry 08/02/17 08/02/17 08/02/17 09:50 10:00 10:10 Temperature Pulse Rate 72 81 72 Pulse Rate [ From Monitor] Respiratory 30 H 32 H 32 H Rate Blood Pressure 156/87 156/87 159/94 O2 Sat by Pulse 94 88 94 Oximetry 08/02/17 08/02/17 08/02/17 10:11 10:20 10:30 Temperature 99.5 F Pulse Rate 71 71 Pulse Rate [ From Monitor] Respiratory 30 H 30 H Rate Blood Pressure 159/94 159/94 O2 Sat by Pulse 94 94 Oximetry 08/02/17 08/02/17 08/02/17 10:40 10:50 11:00 Temperature Pulse Rate 69 68 69 Pulse Rate [ From Monitor] Respiratory 30 H 29 H 24 Rate Blood Pressure 159/94 159/94 146/94 O2 Sat by Pulse 95 95 94 Oximetry 08/02/17 08/02/17 08/02/17 11:10 11:20 11:30 Temperature Pulse Rate 75 68 67 Pulse Rate [ From Monitor] Respiratory 29 H 30 H 27 H Rate Blood Pressure 146/94 146/94 146/94 O2 Sat by Pulse 94 93 94 Oximetry 08/02/17 08/02/17 08/02/17 11:40 11:50 11:59 Temperature Pulse Rate 67 68 64 Pulse Rate [ From Monitor] Respiratory 26 H 28 H Rate Blood Pressure 146/94 146/94 139/82 O2 Sat by Pulse 94 94 94 Oximetry 08/02/17 08/02/17 08/02/17 12:00 12:10 12:20 Temperature Pulse Rate 64 64 63 Pulse Rate [ From Monitor] Respiratory 18 22 19 Rate Blood Pressure 139/82 139/82 146/94 O2 Sat by Pulse 93 93 93 Oximetry 08/02/17 08/02/17 08/02/17 12:30 12:40 12:50 Temperature Pulse Rate 63 63 67 Pulse Rate [ From Monitor] Respiratory 15 15 14 Rate Blood Pressure 146/94 146/94 146/94 O2 Sat by Pulse 93 93 94 Oximetry 08/02/17 08/02/17 08/02/17 12:53 13:00 13:10 Temperature 98.7 F Pulse Rate 66 65 Pulse Rate [ From Monitor] Respiratory 25 H 17 Rate Blood Pressure 152/86 152/86 O2 Sat by Pulse 93 95 Oximetry 08/02/17 08/02/17 08/02/17 13:20 13:30 13:40 Temperature Pulse Rate 65 65 65 Pulse Rate [ From Monitor] Respiratory 20 17 17 Rate Blood Pressure 152/86 152/86 152/86 O2 Sat by Pulse 94 94 95 Oximetry 08/02/17 08/02/17 08/02/17 13:50 14:00 14:10 Temperature Pulse Rate 64 65 65 Pulse Rate [ From Monitor] Respiratory 17 15 14 Rate Blood Pressure 152/86 155/89 155/89 O2 Sat by Pulse 96 95 95 Oximetry 08/02/17 08/02/17 08/02/17 14:20 14:30 14:40 Temperature Pulse Rate 65 66 66 Pulse Rate [ From Monitor] Respiratory 21 14 21 Rate Blood Pressure 152/86 152/86 152/86 O2 Sat by Pulse 94 95 95 Oximetry Constitutional: comatose (eyes open, not following commands, flaccid extremities ) Eyes: non-icteric ENT: oropharynx moist Neck: supple Effort: normal Ascultation: Bilateral: clear Cardiovascular: regular rate and rhythm (no mrg) Gastrointestinal: normoactive bowel sounds, soft, non-tender, non-distended Integumentary: normal Extremities: no cyanosis, no edema, pink and warm Neurologic: other (see above) Psychiatric: other (unable to assess) CBC and BMP: 08/02/17 07:09 08/02/17 04:10 ABG, PT/INR, D-dimer: ABG POC ABG pH 7.474 (7.35-7.45) H 08/02/17 03:40 POC ABG pCO2 33.8 (35-45) L 08/02/17 03:40 POC ABG pO2 73 (80-105) L 08/02/17 03:40 POC ABG HCO3 24.9 08/02/17 03:40 POC ABG Total CO2 26 08/02/17 03:40 POC ABG O2 Sat 96 08/02/17 03:40 PT/INR, D-dimer PT 15.6 Sec. (12.2-14.9) H 07/27/17 18:26 INR 1.18 (0.87-1.13) H 07/27/17 18:26 Abnormal lab findings: Abnormal Labs 07/27/17 07/27/17 07/27/17 18:26 18:26 18:26 WBC 15.6 H Hgb MCHC Plt Count 115 L Lymph % (Auto) [place] % (Auto) [place] # Seg Neutrophils % Lymphocytes % (Manual) 36.0 H Seg Neutrophils # Seg Neutrophils # Man 8.9 H Lymphocytes # (Manual) 5.6 H Monocytes # (Manual) 1.1 H PT 15.6 H INR 1.18 H APTT 38.5 H POC ABG pH POC ABG pCO2 POC ABG pO2 Sodium Potassium Chloride Carbon Dioxide 21 L BUN Creatinine Glucose 252 H POC Glucose Lactic Acid Calcium 7.7 L Total Creatine Kinase CK-MB (CK-2) CK-MB (CK-2) Rel Index Troponin T 0.090 H C-Reactive Protein Triglycerides 190 H LDL Cholesterol Direct 34 L HDL Cholesterol 21 L Urine WBC (Auto) Urine Creatinine Complement C3 Complement C4 07/27/17 07/27/17 07/27/17 19:02 19:25 21:43 WBC Hgb MCHC Plt Count Lymph % (Auto) [place] % (Auto) [place] # Seg Neutrophils % Lymphocytes % (Manual) Seg Neutrophils # Seg Neutrophils # Man Lymphocytes # (Manual) Monocytes # (Manual) PT INR APTT POC ABG pH 7.155 L POC ABG pCO2 47.7 H POC ABG pO2 229 H Sodium Potassium Chloride Carbon Dioxide BUN Creatinine Glucose POC Glucose Lactic Acid 6.00 H* Calcium Total Creatine Kinase CK-MB (CK-2) 4.8 H CK-MB (CK-2) Rel Index Troponin T 0.149 H* D C-Reactive Protein Triglycerides LDL Cholesterol Direct HDL Cholesterol Urine WBC (Auto) Urine Creatinine Complement C3 Complement C4 07/27/17 07/27/17 07/28/17 22:47 22:47 01:47 WBC Hgb MCHC Plt Count Lymph % (Auto) [place] % (Auto) [place] # Seg Neutrophils % Lymphocytes % (Manual) Seg Neutrophils # Seg Neutrophils # Man Lymphocytes # (Manual) Monocytes # (Manual) PT INR APTT POC ABG pH POC ABG pCO2 POC ABG pO2 Sodium Potassium Chloride Carbon Dioxide BUN Creatinine Glucose POC Glucose 199 H Lactic Acid 2.40 H* Calcium Total Creatine Kinase 222 H CK-MB (CK-2) 9.4 H CK-MB (CK-2) Rel Index 4.2 H Troponin T 0.852 H* D C-Reactive Protein Triglycerides LDL Cholesterol Direct HDL Cholesterol Urine WBC (Auto) Urine Creatinine Complement C3 Complement C4 07/28/17 07/28/17 07/28/17 05:29 05:44 05:44 WBC Hgb MCHC Plt Count Lymph % (Auto) [place] % (Auto) [place] # Seg Neutrophils % Lymphocytes % (Manual) Seg Neutrophils # Seg Neutrophils # Man Lymphocytes # (Manual) Monocytes # (Manual) PT INR APTT POC ABG pH 7.268 L POC ABG pCO2 34.8 L POC ABG pO2 Sodium 146 H Potassium 5.1 H D Chloride 113.3 H Carbon Dioxide 18 L BUN 29 H Creatinine 2.0 H D Glucose 194 H POC Glucose Lactic Acid 2.10 H* Calcium 6.8 L Total Creatine Kinase CK-MB (CK-2) CK-MB (CK-2) Rel Index Troponin T C-Reactive Protein Triglycerides LDL Cholesterol Direct HDL Cholesterol Urine WBC (Auto) Urine Creatinine Complement C3 Complement C4 07/28/17 07/28/17 07/28/17 05:44 06:30 16:00 WBC 16.9 H Hgb MCHC 31 L Plt Count Lymph % (Auto) 8.4 L [place] % (Auto) 7.5 H [place] # 1.3 H Seg Neutrophils % 84.1 H Lymphocytes % (Manual) Seg Neutrophils # 14.2 H Seg Neutrophils # Man Lymphocytes # (Manual) Monocytes # (Manual) PT INR APTT POC ABG pH POC ABG pCO2 POC ABG pO2 Sodium 146 H Potassium Chloride Carbon Dioxide BUN Creatinine 2.4 H Glucose POC Glucose Lactic Acid Calcium Total Creatine Kinase 434 H CK-MB (CK-2) 10.8 H CK-MB (CK-2) Rel Index Troponin T 0.521 H* D C-Reactive Protein Triglycerides LDL Cholesterol Direct HDL Cholesterol Urine WBC (Auto) Urine Creatinine Complement C3 Complement C4 07/28/17 07/28/17 07/28/17 16:00 16:00 16:20 WBC Hgb MCHC Plt Count Lymph % (Auto) [place] % (Auto) [place] # Seg Neutrophils % Lymphocytes % (Manual) Seg Neutrophils # Seg Neutrophils # Man Lymphocytes # (Manual) Monocytes # (Manual) PT INR APTT POC ABG pH POC ABG pCO2 POC ABG pO2 Sodium Potassium Chloride Carbon Dioxide BUN Creatinine Glucose POC Glucose Lactic Acid Calcium Total Creatine Kinase CK-MB (CK-2) CK-MB (CK-2) Rel Index Troponin T C-Reactive Protein Triglycerides LDL Cholesterol Direct HDL Cholesterol Urine WBC (Auto) 12.0 H Urine Creatinine Complement C3 67 L Complement C4 14 L 07/28/17 07/29/17 07/29/17 16:20 04:02 05:00 WBC Hgb MCHC Plt Count Lymph % (Auto) [place] % (Auto) [place] # Seg Neutrophils % Lymphocytes % (Manual) Seg Neutrophils # Seg Neutrophils # Man Lymphocytes # (Manual) Monocytes # (Manual) PT INR APTT POC ABG pH 7.304 L POC ABG pCO2 31.6 L POC ABG pO2 Sodium Potassium Chloride 111.7 H Carbon Dioxide 18 L BUN 37 H Creatinine 2.1 H Glucose 213 H POC Glucose Lactic Acid Calcium 6.9 L Total Creatine Kinase CK-MB (CK-2) CK-MB (CK-2) Rel Index Troponin T C-Reactive Protein Triglycerides LDL Cholesterol Direct HDL Cholesterol Urine WBC (Auto) Urine Creatinine 58.4 H Complement C3 Complement C4 07/29/17 07/30/17 07/30/17 Unknown 04:07 12:43 WBC 14.4 H Hgb MCHC Plt Count 125 L Lymph % (Auto) [place] % (Auto) [place] # Seg Neutrophils % Lymphocytes % (Manual) Seg Neutrophils # Seg Neutrophils # Man Lymphocytes # (Manual) Monocytes # (Manual) PT INR APTT POC ABG pH 7.319 L POC ABG pCO2 27.8 L POC ABG pO2 121 H Sodium Potassium Chloride Carbon Dioxide BUN Creatinine Glucose POC Glucose 134 H Lactic Acid Calcium Total Creatine Kinase CK-MB (CK-2) CK-MB (CK-2) Rel Index Troponin T C-Reactive Protein Triglycerides LDL Cholesterol Direct HDL Cholesterol Urine WBC (Auto) Urine Creatinine Complement C3 Complement C4 07/30/17 07/30/17 07/30/17 17:22 23:27 Unknown WBC Hgb MCHC Plt Count Lymph % (Auto) [place] % (Auto) [place] # Seg Neutrophils % Lymphocytes % (Manual) Seg Neutrophils # Seg Neutrophils # Man Lymphocytes # (Manual) Monocytes # (Manual) PT INR APTT POC ABG pH POC ABG pCO2 POC ABG pO2 Sodium 146 H Potassium Chloride 113.8 H Carbon Dioxide 18 L BUN 36 H Creatinine 1.8 H Glucose 177 H POC Glucose 117 H 173 H Lactic Acid Calcium 6.9 L Total Creatine Kinase CK-MB (CK-2) CK-MB (CK-2) Rel Index Troponin T C-Reactive Protein Triglycerides LDL Cholesterol Direct HDL Cholesterol Urine WBC (Auto) Urine Creatinine Complement C3 Complement C4 07/30/17 07/31/17 07/31/17 Unknown 04:13 05:00 WBC 15.6 H Hgb MCHC Plt Count 117 L Lymph % (Auto) [place] % (Auto) [place] # Seg Neutrophils % Lymphocytes % (Manual) Seg Neutrophils # Seg Neutrophils # Man Lymphocytes # (Manual) Monocytes # (Manual) PT INR APTT POC ABG pH POC ABG pCO2 26.8 L POC ABG pO2 74 L Sodium 148 H Potassium Chloride 112.8 H Carbon Dioxide 20 L BUN 33 H Creatinine 1.6 H Glucose 188 H POC Glucose Lactic Acid Calcium 7.1 L Total Creatine Kinase CK-MB (CK-2) CK-MB (CK-2) Rel Index Troponin T C-Reactive Protein Triglycerides LDL Cholesterol Direct HDL Cholesterol Urine WBC (Auto) Urine Creatinine Complement C3 Complement C4 07/31/17 07/31/17 07/31/17 05:00 05:01 14:36 WBC 18.5 H Hgb MCHC Plt Count 135 L Lymph % (Auto) [place] % (Auto) [place] # Seg Neutrophils % Lymphocytes % (Manual) Seg Neutrophils # Seg Neutrophils # Man Lymphocytes # (Manual) Monocytes # (Manual) PT INR APTT POC ABG pH POC ABG pCO2 POC ABG pO2 Sodium Potassium Chloride Carbon Dioxide BUN Creatinine Glucose POC Glucose 219 H 199 H Lactic Acid Calcium Total Creatine Kinase CK-MB (CK-2) CK-MB (CK-2) Rel Index Troponin T C-Reactive Protein Triglycerides LDL Cholesterol Direct HDL Cholesterol Urine WBC (Auto) Urine Creatinine Complement C3 Complement C4 07/31/17 08/01/17 08/01/17 17:57 00:02 03:22 WBC Hgb MCHC Plt Count Lymph % (Auto) [place] % (Auto) [place] # Seg Neutrophils % Lymphocytes % (Manual) Seg Neutrophils # Seg Neutrophils # Man Lymphocytes # (Manual) Monocytes # (Manual) PT INR APTT POC ABG pH 7.481 H POC ABG pCO2 29.6 L POC ABG pO2 65 L Sodium Potassium Chloride Carbon Dioxide BUN Creatinine Glucose POC Glucose 216 H 131 H Lactic Acid Calcium Total Creatine Kinase CK-MB (CK-2) CK-MB (CK-2) Rel Index Troponin T C-Reactive Protein Triglycerides LDL Cholesterol Direct HDL Cholesterol Urine WBC (Auto) Urine Creatinine Complement C3 Complement C4 08/01/17 08/01/17 08/01/17 04:10 04:10 05:18 WBC 19.3 H Hgb MCHC Plt Count 129 L Lymph % (Auto) [place] % (Auto) [place] # Seg Neutrophils % Lymphocytes % (Manual) Seg Neutrophils # Seg Neutrophils # Man Lymphocytes # (Manual) Monocytes # (Manual) PT INR APTT POC ABG pH POC ABG pCO2 POC ABG pO2 Sodium 148 H Potassium Chloride 113.2 H Carbon Dioxide 21 L BUN 29 H Creatinine Glucose 173 H POC Glucose 179 H Lactic Acid Calcium 7.3 L Total Creatine Kinase CK-MB (CK-2) CK-MB (CK-2) Rel Index Troponin T C-Reactive Protein Triglycerides LDL Cholesterol Direct HDL Cholesterol Urine WBC (Auto) Urine Creatinine Complement C3 Complement C4 08/01/17 08/01/17 08/01/17 11:55 18:13 19:42 WBC Hgb MCHC Plt Count Lymph % (Auto) [place] % (Auto) [place] # Seg Neutrophils % Lymphocytes % (Manual) Seg Neutrophils # Seg Neutrophils # Man Lymphocytes # (Manual) Monocytes # (Manual) PT INR APTT POC ABG pH POC ABG pCO2 POC ABG pO2 Sodium Potassium Chloride Carbon Dioxide BUN Creatinine Glucose POC Glucose 174 H 189 H Lactic Acid Calcium Total Creatine Kinase CK-MB (CK-2) CK-MB (CK-2) Rel Index Troponin T C-Reactive Protein 4.00 H Triglycerides LDL Cholesterol Direct HDL Cholesterol Urine WBC (Auto) Urine Creatinine Complement C3 Complement C4 08/01/17 08/02/17 08/02/17 22:01 03:40 04:10 WBC Hgb MCHC Plt Count Lymph % (Auto) [place] % (Auto) [place] # Seg Neutrophils % Lymphocytes % (Manual) Seg Neutrophils # Seg Neutrophils # Man Lymphocytes # (Manual) Monocytes # (Manual) PT INR APTT POC ABG pH 7.474 H POC ABG pCO2 33.8 L POC ABG pO2 73 L Sodium 148 H Potassium Chloride 109.3 H Carbon Dioxide BUN 31 H Creatinine Glucose 168 H POC Glucose 165 H Lactic Acid Calcium 6.8 L Total Creatine Kinase CK-MB (CK-2) CK-MB (CK-2) Rel Index Troponin T C-Reactive Protein Triglycerides LDL Cholesterol Direct HDL Cholesterol Urine WBC (Auto) Urine Creatinine Complement C3 Complement C4 08/02/17 08/02/17 08/02/17 06:00 07:09 11:25 WBC 20.1 H Hgb 11.7 L MCHC Plt Count 127 L Lymph % (Auto) [place] % (Auto) [place] # Seg Neutrophils % Lymphocytes % (Manual) Seg Neutrophils # Seg Neutrophils # Man Lymphocytes # (Manual) Monocytes # (Manual) PT INR APTT POC ABG pH POC ABG pCO2 POC ABG pO2 Sodium Potassium Chloride Carbon Dioxide BUN Creatinine Glucose POC Glucose 172 H 159 H Lactic Acid Calcium Total Creatine Kinase CK-MB (CK-2) CK-MB (CK-2) Rel Index Troponin T C-Reactive Protein Triglycerides LDL Cholesterol Direct HDL Cholesterol Urine WBC (Auto) Urine Creatinine Complement C3 Complement C4 Chest x-ray: report reviewed, image reviewed
[2017-08-02] MEDS ORDERED: TRIPLE ANTIBIOTIC TP ONE ×2 (15:49→15:57)
--- NOTE | 2017-08-02 16:41 | Consultation ---
History of Present Illness Consult date: 08/02/17 History of present illness: follow up neuro exam reveals him to have eyes open and does \looks around hard to tell if this is purposeful no spontaneous limb movements Stacia is in the room and do not see that he responds to verbal stimulation exlained to the the clinical course of illness will check EEG at present he is in minimally responsive state Past History Past Medical History: CAD Social history: no significant social history (denies smoking or drinking) Family history: no significant family history (negative for kidney disease) Medications and Allergies Allergies Allergy/AdvReac Type Severity Reaction Status Date / Time acetaminophen [From Vicodin] Allergy Unknown Verified 07/27/17 18:13 hydrocodone [From Vicodin] Allergy Unknown Verified 07/27/17 18:13 zolpidem [From Ambien] Allergy Unknown Verified 07/27/17 18:13 Home Medications Medication Instructions Recorded Confirmed Last Taken Type Aspirin [Aspirin BABY CHEW TAB] 1 tab PO QDAY 07/29/17 07/29/17 07/25/17 History AtorvaSTATin [Lipitor] 40 mg PO QHS 07/29/17 07/29/17 07/25/17 History Clopidogrel [Plavix] 75 mg PO QDAY 07/29/17 07/29/17 07/25/17 History ISOSORBIDE MONOnitrate [Imdur ER] 30 mg PO DAILY 07/29/17 07/29/17 07/25/17 History Spironolactone [Aldactone] 25 mg PO QDAY 07/29/17 07/29/17 07/25/17 History Tamsulosin HCl [Flomax] 1 tab PO QDAY 07/29/17 07/29/17 07/25/17 History Carvedilol [Coreg] 12.5 mg PO BID 07/30/17 07/30/17 07/27/17 09:00 History Sacubitril/Valsartan [Entresto 49 49 - 51 mg PO BID 07/30/17 07/30/17 07/27/17 09:00 History mg-51 mg Tablet] Active Meds: Active Medications Acetaminophen (Tylenol) 650 mg PO Q6HR PRN PRN Reason: Fever Last Admin: 08/01/17 13:51 Dose: 650 mg Albuterol (Proventil) 2.5 mg IH Q3HRT PRN PRN Reason: Shortness Of Breath Amiodarone HCl (Cordarone) 200 mg PO BID [facility] Last Admin: 08/02/17 09:13 Dose: 200 mg Lipase/Protease/Amylase (Pancrelaurita Cuenca 10,500 Unit) 1 each FEEDTUBE PRN PRN PRN Reason: For Clogged Feeding Tube Last Admin: 07/31/17 10:07 Dose: 1 each Carvedilol (Coreg) 3.125 mg PO BID [facility] Last Admin: 08/02/17 09:13 Dose: 3.125 mg Famotidine (Pepcid) 20 mg IV BID [facility] Last Admin: 08/02/17 09:13 Dose: 20 mg Hydrophilic Ointment (Vaseline Lip Therapy) 1 applic TP Q2HR PRN PRN Reason: Dry Lips Vasopressin 20 unit/ Sodium (Chloride) 101 mls @ 9.09 mls/hr IV TITR DANIEL; 0.03 UNITS/MIN PRN Reason: Protocol Last Titration: 07/30/17 09:21 Dose: 0 units/min, 0 mls/hr Norepinephrine (Levophed Drip 4 Mg/Ns 250 Ml) 4 mg in 250 mls @ 7.5 mls/hr IV TITR DANIEL; 2 MCG/MIN PRN Reason: Protocol Piperacillin Sod/Tazobactam Sod (Zosyn/Ns 3.375gm/50ml) 3.375 gm in 50 mls @ 100 mls/hr IV Q6HR DANIEL PRN Reason: Protocol Last Admin: 08/02/17 13:29 Dose: 100 mls/hr Insulin Aspart (Novolog) 0 units SUB-Q QHS [facility] PRN Reason: Protocol Last Admin: 08/01/17 22:02 Dose: 2 units Insulin Human Regular (Novolin R) 0 units SUB-Q Q6HR [facility] PRN Reason: Protocol Last Admin: 08/02/17 12:59 Dose: Not Given Lorazepam (Ativan) 1 mg IV Q4H PRN PRN Reason: seizures/twitching Multi-Ingred Cream/Lotion/Oil/Oint (Artificial Tears Ophth Oint) 1 applic OU Q4HR PRN PRN Reason: Dry Eye(s) Ondansetron HCl (Zofran) 4 mg IV Q8H PRN PRN Reason: N/V unrelieved by Reglan Simple Syrup (Simple Syrup) 15 ml FEEDTUBE PRN PRN PRN Reason: Hypoglycemia Simple Syrup (Simple Syrup) 30 ml FEEDTUBE PRN PRN PRN Reason: Hypoglycemia Sodium Chloride (Nacl 0.9% 500 Ml) 1 ml IV DIRECT DANIEL Vancomycin HCl (Vancomycin Pharmacy To Dose) 1 each IV PKCONSULT DANIEL PRN Reason: Protocol Physical Examination - Vital Signs Vital Signs: Vital Signs Pulse Resp 28 L 12 07/27/17 18:02 07/27/17 18:02 Results - Laboratory Findings CBC and BMP: 08/02/17 07:09 08/02/17 04:10 Abnormal Lab Findings: Abnormal Labs 07/27/17 07/27/17 07/27/17 18:26 18:26 18:26 WBC 15.6 H Hgb MCHC Plt Count 115 L Lymph % (Auto) [place] % (Auto) [place] # Seg Neutrophils % Lymphocytes % (Manual) 36.0 H Seg Neutrophils # Seg Neutrophils # Man 8.9 H Lymphocytes # (Manual) 5.6 H Monocytes # (Manual) 1.1 H PT 15.6 H INR 1.18 H APTT 38.5 H POC ABG pH POC ABG pCO2 POC ABG pO2 Sodium Potassium Chloride Carbon Dioxide 21 L BUN Creatinine Glucose 252 H POC Glucose Lactic Acid Calcium 7.7 L Total Creatine Kinase CK-MB (CK-2) CK-MB (CK-2) Rel Index Troponin T 0.090 H C-Reactive Protein Triglycerides 190 H LDL Cholesterol Direct 34 L HDL Cholesterol 21 L Urine WBC (Auto) Urine Creatinine Complement C3 Complement C4 07/27/17 07/27/17 07/27/17 19:02 19:25 21:43 WBC Hgb MCHC Plt Count Lymph % (Auto) [place] % (Auto) [place] # Seg Neutrophils % Lymphocytes % (Manual) Seg Neutrophils # Seg Neutrophils # Man Lymphocytes # (Manual) Monocytes # (Manual) PT INR APTT POC ABG pH 7.155 L POC ABG pCO2 47.7 H POC ABG pO2 229 H Sodium Potassium Chloride Carbon Dioxide BUN Creatinine Glucose POC Glucose Lactic Acid 6.00 H* Calcium Total Creatine Kinase CK-MB (CK-2) 4.8 H CK-MB (CK-2) Rel Index Troponin T 0.149 H* D C-Reactive Protein Triglycerides LDL Cholesterol Direct HDL Cholesterol Urine WBC (Auto) Urine Creatinine Complement C3 Complement C4 07/27/17 07/27/1717 22:47 22:47 01:47 WBC Hgb MCHC Plt Count Lymph % (Auto) [place] % (Auto) [place] # Seg Neutrophils % Lymphocytes % (Manual) Seg Neutrophils # Seg Neutrophils # Man Lymphocytes # (Manual) Monocytes # (Manual) PT INR APTT POC ABG pH POC ABG pCO2 POC ABG pO2 Sodium Potassium Chloride Carbon Dioxide BUN Creatinine Glucose POC Glucose 199 H Lactic Acid 2.40 H* Calcium Total Creatine Kinase 222 H CK-MB (CK-2) 9.4 H CK-MB (CK-2) Rel Index 4.2 H Troponin T 0.852 H* D C-Reactive Protein Triglycerides LDL Cholesterol Direct HDL Cholesterol Urine WBC (Auto) Urine Creatinine Complement C3 Complement C4 07/28/17 07/28/17 07/28/17 05:29 05:44 05:44 WBC Hgb MCHC Plt Count Lymph % (Auto) [place] % (Auto) [place] # Seg Neutrophils % Lymphocytes % (Manual) Seg Neutrophils # Seg Neutrophils # Man Lymphocytes # (Manual) Monocytes # (Manual) PT INR APTT POC ABG pH 7.268 L POC ABG pCO2 34.8 L POC ABG pO2 Sodium 146 H Potassium 5.1 H D Chloride 113.3 H Carbon Dioxide 18 L BUN 29 H Creatinine 2.0 H D Glucose 194 H POC Glucose Lactic Acid 2.10 H* Calcium 6.8 L Total Creatine Kinase CK-MB (CK-2) CK-MB (CK-2) Rel Index Troponin T C-Reactive Protein Triglycerides LDL Cholesterol Direct HDL Cholesterol Urine WBC (Auto) Urine Creatinine Complement C3 Complement C4 07/28/17 07/28/17 07/28/17 05:44 06:30 16:00 WBC 16.9 H Hgb MCHC 31 L Plt Count Lymph % (Auto) 8.4 L [place] % (Auto) 7.5 H [place] # 1.3 H Seg Neutrophils % 84.1 H Lymphocytes % (Manual) Seg Neutrophils # 14.2 H Seg Neutrophils # Man Lymphocytes # (Manual) Monocytes # (Manual) PT INR APTT POC ABG pH POC ABG pCO2 POC ABG pO2 Sodium 146 H Potassium Chloride Carbon Dioxide BUN Creatinine 2.4 H Glucose POC Glucose Lactic Acid Calcium Total Creatine Kinase 434 H CK-MB (CK-2) 10.8 H CK-MB (CK-2) Rel Index Troponin T 0.521 H* D C-Reactive Protein Triglycerides LDL Cholesterol Direct HDL Cholesterol Urine WBC (Auto) Urine Creatinine Complement C3 Complement C4 07/28/17 07/28/17 07/28/17 16:00 16:00 16:20 WBC Hgb MCHC Plt Count Lymph % (Auto) [place] % (Auto) [place] # Seg Neutrophils % Lymphocytes % (Manual) Seg Neutrophils # Seg Neutrophils # Man Lymphocytes # (Manual) Monocytes # (Manual) PT INR APTT POC ABG pH POC ABG pCO2 POC ABG pO2 Sodium Potassium Chloride Carbon Dioxide BUN Creatinine Glucose POC Glucose Lactic Acid Calcium Total Creatine Kinase CK-MB (CK-2) CK-MB (CK-2) Rel Index Troponin T C-Reactive Protein Triglycerides LDL Cholesterol Direct HDL Cholesterol Urine WBC (Auto) 12.0 H Urine Creatinine Complement C3 67 L Complement C4 14 L 07/28/17 07/29/17 07/29/17 16:20 04:02 05:00 WBC Hgb MCHC Plt Count Lymph % (Auto) [place] % (Auto) [place] # Seg Neutrophils % Lymphocytes % (Manual) Seg Neutrophils # Seg Neutrophils # Man Lymphocytes # (Manual) Monocytes # (Manual) PT INR APTT POC ABG pH 7.304 L POC ABG pCO2 31.6 L POC ABG pO2 Sodium Potassium Chloride 111.7 H Carbon Dioxide 18 L BUN 37 H Creatinine 2.1 H Glucose 213 H POC Glucose Lactic Acid Calcium 6.9 L Total Creatine Kinase CK-MB (CK-2) CK-MB (CK-2) Rel Index Troponin T C-Reactive Protein Triglycerides LDL Cholesterol Direct HDL Cholesterol Urine WBC (Auto) Urine Creatinine 58.4 H Complement C3 Complement C4 07/29/17 07/30/17 07/30/17 Unknown 04:07 12:43 WBC 14.4 H Hgb MCHC Plt Count 125 L Lymph % (Auto) [place] % (Auto) [place] # Seg Neutrophils % Lymphocytes % (Manual) Seg Neutrophils # Seg Neutrophils # Man Lymphocytes # (Manual) Monocytes # (Manual) PT INR APTT POC ABG pH 7.319 L POC ABG pCO2 27.8 L POC ABG pO2 121 H Sodium Potassium Chloride Carbon Dioxide BUN Creatinine Glucose POC Glucose 134 H Lactic Acid Calcium Total Creatine Kinase CK-MB (CK-2) CK-MB (CK-2) Rel Index Troponin T C-Reactive Protein Triglycerides LDL Cholesterol Direct HDL Cholesterol Urine WBC (Auto) Urine Creatinine Complement C3 Complement C4 07/30/17 07/30/17 07/30/17 17:22 23:27 Unknown WBC Hgb MCHC Plt Count Lymph % (Auto) [place] % (Auto) [place] # Seg Neutrophils % Lymphocytes % (Manual) Seg Neutrophils # Seg Neutrophils # Man Lymphocytes # (Manual) Monocytes # (Manual) PT INR APTT POC ABG pH POC ABG pCO2 POC ABG pO2 Sodium 146 H Potassium Chloride 113.8 H Carbon Dioxide 18 L BUN 36 H Creatinine 1.8 H Glucose 177 H POC Glucose 117 H 173 H Lactic Acid Calcium 6.9 L Total Creatine Kinase CK-MB (CK-2) CK-MB (CK-2) Rel Index Troponin T C-Reactive Protein Triglycerides LDL Cholesterol Direct HDL Cholesterol Urine WBC (Auto) Urine Creatinine Complement C3 Complement C4 07/30/17 07/31/17 07/31/17 Unknown 04:13 05:00 WBC 15.6 H Hgb MCHC Plt Count 117 L Lymph % (Auto) [place] % (Auto) [place] # Seg Neutrophils % Lymphocytes % (Manual) Seg Neutrophils # Seg Neutrophils # Man Lymphocytes # (Manual) Monocytes # (Manual) PT INR APTT POC ABG pH POC ABG pCO2 26.8 L POC ABG pO2 74 L Sodium 148 H Potassium Chloride 112.8 H Carbon Dioxide 20 L BUN 33 H Creatinine 1.6 H Glucose 188 H POC Glucose Lactic Acid Calcium 7.1 L Total Creatine Kinase CK-MB (CK-2) CK-MB (CK-2) Rel Index Troponin T C-Reactive Protein Triglycerides LDL Cholesterol Direct HDL Cholesterol Urine WBC (Auto) Urine Creatinine Complement C3 Complement C4 07/31/17 07/31/17 07/31/17 05:00 05:01 14:36 WBC 18.5 H Hgb MCHC Plt Count 135 L Lymph % (Auto) [place] % (Auto) [place] # Seg Neutrophils % Lymphocytes % (Manual) Seg Neutrophils # Seg Neutrophils # Man Lymphocytes # (Manual) Monocytes # (Manual) PT INR APTT POC ABG pH POC ABG pCO2 POC ABG pO2 Sodium Potassium Chloride Carbon Dioxide BUN Creatinine Glucose POC Glucose 219 H 199 H Lactic Acid Calcium Total Creatine Kinase CK-MB (CK-2) CK-MB (CK-2) Rel Index Troponin T C-Reactive Protein Triglycerides LDL Cholesterol Direct HDL Cholesterol Urine WBC (Auto) Urine Creatinine Complement C3 Complement C4 07/31/17 08/01/17 08/01/17 17:57 00:02 03:22 WBC Hgb MCHC Plt Count Lymph % (Auto) [place] % (Auto) [place] # Seg Neutrophils % Lymphocytes % (Manual) Seg Neutrophils # Seg Neutrophils # Man Lymphocytes # (Manual) Monocytes # (Manual) PT INR APTT POC ABG pH 7.481 H POC ABG pCO2 29.6 L POC ABG pO2 65 L Sodium Potassium Chloride Carbon Dioxide BUN Creatinine Glucose POC Glucose 216 H 131 H Lactic Acid Calcium Total Creatine Kinase CK-MB (CK-2) CK-MB (CK-2) Rel Index Troponin T C-Reactive Protein Triglycerides LDL Cholesterol Direct HDL Cholesterol Urine WBC (Auto) Urine Creatinine Complement C3 Complement C4 08/01/17 08/01/17 08/01/17 04:10 04:10 05:18 WBC 19.3 H Hgb MCHC Plt Count 129 L Lymph % (Auto) [place] % (Auto) [place] # Seg Neutrophils % Lymphocytes % (Manual) Seg Neutrophils # Seg Neutrophils # Man Lymphocytes # (Manual) Monocytes # (Manual) PT INR APTT POC ABG pH POC ABG pCO2 POC ABG pO2 Sodium 148 H Potassium Chloride 113.2 H Carbon Dioxide 21 L BUN 29 H Creatinine Glucose 173 H POC Glucose 179 H Lactic Acid Calcium 7.3 L Total Creatine Kinase CK-MB (CK-2) CK-MB (CK-2) Rel Index Troponin T C-Reactive Protein Triglycerides LDL Cholesterol Direct HDL Cholesterol Urine WBC (Auto) Urine Creatinine Complement C3 Complement C4 08/01/17 08/01/17 08/01/17 11:55 18:13 19:42 WBC Hgb MCHC Plt Count Lymph % (Auto) [place] % (Auto) [place] # Seg Neutrophils % Lymphocytes % (Manual) Seg Neutrophils # Seg Neutrophils # Man Lymphocytes # (Manual) Monocytes # (Manual) PT INR APTT POC ABG pH POC ABG pCO2 POC ABG pO2 Sodium Potassium Chloride Carbon Dioxide BUN Creatinine Glucose POC Glucose 174 H 189 H Lactic Acid Calcium Total Creatine Kinase CK-MB (CK-2) CK-MB (CK-2) Rel Index Troponin T C-Reactive Protein 4.00 H Triglycerides LDL Cholesterol Direct HDL Cholesterol Urine WBC (Auto) Urine Creatinine Complement C3 Complement C4 08/01/17 08/02/17 08/02/17 22:01 03:40 04:10 WBC Hgb MCHC Plt Count Lymph % (Auto) [place] % (Auto) [place] # Seg Neutrophils % Lymphocytes % (Manual) Seg Neutrophils # Seg Neutrophils # Man Lymphocytes # (Manual) Monocytes # (Manual) PT INR APTT POC ABG pH 7.474 H POC ABG pCO2 33.8 L POC ABG pO2 73 L Sodium 148 H Potassium Chloride 109.3 H Carbon Dioxide BUN 31 H Creatinine Glucose 168 H POC Glucose 165 H Lactic Acid Calcium 6.8 L Total Creatine Kinase CK-MB (CK-2) CK-MB (CK-2) Rel Index Troponin T C-Reactive Protein Triglycerides LDL Cholesterol Direct HDL Cholesterol Urine WBC (Auto) Urine Creatinine Complement C3 Complement C4 08/02/17 08/02/17 08/02/17 06:00 07:09 11:25 WBC 20.1 H Hgb 11.7 L MCHC Plt Count 127 L Lymph % (Auto) [place] % (Auto) [place] # Seg Neutrophils % Lymphocytes % (Manual) Seg Neutrophils # Seg Neutrophils # Man Lymphocytes # (Manual) Monocytes # (Manual) PT INR APTT POC ABG pH POC ABG pCO2 POC ABG pO2 Sodium Potassium Chloride Carbon Dioxide BUN Creatinine Glucose POC Glucose 172 H 159 H Lactic Acid Calcium Total Creatine Kinase CK-MB (CK-2) CK-MB (CK-2) Rel Index Troponin T C-Reactive Protein Triglycerides LDL Cholesterol Direct HDL Cholesterol Urine WBC (Auto) Urine Creatinine Complement C3 Complement C4
--- NOTE | 2017-08-02 17:34 | Progress Note ---
Assessment and Plan 71 year old man with history of CAD, CHF was brought to the emerghency room after he had a cardiac arrest at home. He had a cough productive of yellow phlegm, fever 3 days. EMS was called, CPR was continued for another 40 minutes prior to arrival in the emergency room, he had a V. fib or V. tach rhythm for which he was shocked per EMS. CPR was continued in the emergency room, he was hypotensive and placed on levothyroid and vasopressin. Remains unresponsive. Neurologist evaluating EEG pending - Cardio-resp arrest at home. All interdisciplinary notes reviewed. Remiains unresponsive. Intubated and vent supported. - Shock. Cardiogenic +/- septic shock. off vasopressor, BP is stable. - Acute kidney Injury due to acute tubular necrosis. Improving, Creatinine improved to nl. Bun slightly levated Nephrology following. - CAD s/p CABG. 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 Anoxic encephalopathy. EEG for evolution of cerebrovascular function. Neurologist following. Discussed with Dr. Brown - Hypernatremia: Increase free water intake - Leukocytosis: From presumed aspiration pneumonia versus community acquired pneumonia. Blood cultures no growth to date. Continue Zosyn/ vanco ID following - Seizure: Post arrest. Neurologist on board. - Hyperglycemia: Monitor blood sugars with sliding scale coverage for now - Full code status Discussed at length with patient's regarding patient's status. Discussed with neurologreina Brown - Prophylaxis with Lovenox, GI with Pepcid. Spent 35 minutes of critical care time in direct patient, review of consultants recommendation, laboratory and radiological data Subjective Date of service: 08/02/17 Principal diagnosis: cardiac arrest at home. Intubated and unresponcsive Interval history: No new cultures reported to me by the nurse. Patient remains intubated. Unresponsive. Patient is by depressed side Objective - Constitutional Vitals: Vital Signs - 12hr 08/02/17 08/02/17 08/02/17 05:30 05:40 05:50 Temperature Pulse Rate 63 64 63 Pulse Rate [ From Monitor] Respiratory 17 20 18 Rate Blood Pressure 155/89 155/89 155/89 O2 Sat by Pulse 95 95 94 Oximetry 08/02/17 08/02/17 08/02/17 06:00 06:03 06:10 Temperature Pulse Rate 63 71 Pulse Rate [ From Monitor] Respiratory 16 26 H Rate Blood Pressure 133/76 155/89 O2 Sat by Pulse 94 96 95 Oximetry 08/02/17 08/02/17 08/02/17 06:20 06:30 06:40 Temperature Pulse Rate 67 70 71 Pulse Rate [ From Monitor] Respiratory 17 16 24 Rate Blood Pressure 155/89 155/89 133/76 O2 Sat by Pulse 95 93 96 Oximetry 08/02/17 08/02/17 08/02/17 06:50 07:00 07:10 Temperature Pulse Rate 67 67 67 Pulse Rate [ From Monitor] Respiratory 25 H 19 19 Rate Blood Pressure 133/76 152/85 152/85 O2 Sat by Pulse 95 95 95 Oximetry 08/02/17 08/02/17 08/02/17 07:20 07:30 07:40 Temperature Pulse Rate 68 68 68 Pulse Rate [ From Monitor] Respiratory 25 H 22 21 Rate Blood Pressure 152/85 152/85 152/85 O2 Sat by Pulse 95 95 95 Oximetry 08/02/17 08/02/17 08/02/17 07:50 08:00 08:10 Temperature Pulse Rate 68 67 68 Pulse Rate [ 72 From Monitor] Respiratory 21 19 17 Rate Blood Pressure 152/85 146/83 146/83 O2 Sat by Pulse 95 95 95 Oximetry 08/02/17 08/02/17 08/02/17 08:20 08:30 08:40 Temperature Pulse Rate 68 68 69 Pulse Rate [ From Monitor] Respiratory 19 19 29 H Rate Blood Pressure 146/83 146/83 146/83 O2 Sat by Pulse 95 95 94 Oximetry 08/02/17 08/02/17 08/02/17 08:50 09:00 09:10 Temperature Pulse Rate 70 72 71 Pulse Rate [ From Monitor] Respiratory 29 H 30 H 31 H Rate Blood Pressure 146/83 146/83 156/87 O2 Sat by Pulse 95 94 94 Oximetry 08/02/17 08/02/17 08/02/17 09:13 09:20 09:30 Temperature Pulse Rate 71 72 71 Pulse Rate [ From Monitor] Respiratory 33 H 31 H Rate Blood Pressure 156/87 156/87 156/87 O2 Sat by Pulse 94 94 Oximetry 08/02/17 08/02/17 08/02/17 09:40 09:50 10:00 Temperature Pulse Rate 71 72 81 Pulse Rate [ From Monitor] Respiratory 33 H 30 H 32 H Rate Blood Pressure 156/87 156/87 156/87 O2 Sat by Pulse 94 94 88 Oximetry 08/02/17 08/02/17 08/02/17 10:10 10:11 10:20 Temperature 99.5 F Pulse Rate 72 71 Pulse Rate [ From Monitor] Respiratory 32 H 30 H Rate Blood Pressure 159/94 159/94 O2 Sat by Pulse 94 94 Oximetry 08/02/17 08/02/17 08/02/17 10:30 10:40 10:50 Temperature Pulse Rate 71 69 68 Pulse Rate [ From Monitor] Respiratory 30 H 30 H 29 H Rate Blood Pressure 159/94 159/94 159/94 O2 Sat by Pulse 94 95 95 Oximetry 08/02/17 08/02/17 08/02/17 11:00 11:10 11:20 Temperature Pulse Rate 69 75 68 Pulse Rate [ From Monitor] Respiratory 24 29 H 30 H Rate Blood Pressure 146/94 146/94 146/94 O2 Sat by Pulse 94 94 93 Oximetry 08/02/17 08/02/17 08/02/17 11:30 11:40 11:50 Temperature Pulse Rate 67 67 68 Pulse Rate [ From Monitor] Respiratory 27 H 26 H 28 H Rate Blood Pressure 146/94 146/94 146/94 O2 Sat by Pulse 94 94 94 Oximetry 08/02/17 08/02/17 08/02/17 11:59 12:00 12:10 Temperature Pulse Rate 64 64 64 Pulse Rate [ From Monitor] Respiratory 18 22 Rate Blood Pressure 139/82 139/82 139/82 O2 Sat by Pulse 94 93 93 Oximetry 08/02/17 08/02/17 08/02/17 12:20 12:30 12:40 Temperature Pulse Rate 63 63 63 Pulse Rate [ From Monitor] Respiratory 19 15 15 Rate Blood Pressure 146/94 146/94 146/94 O2 Sat by Pulse 93 93 93 Oximetry 08/02/17 08/02/17 08/02/17 12:50 12:53 13:00 Temperature 98.7 F Pulse Rate 67 66 Pulse Rate [ From Monitor] Respiratory 14 25 H Rate Blood Pressure 146/94 152/86 O2 Sat by Pulse 94 93 Oximetry 08/02/17 08/02/17 08/02/17 13:10 13:20 13:30 Temperature Pulse Rate 65 65 65 Pulse Rate [ From Monitor] Respiratory 17 20 17 Rate Blood Pressure 152/86 152/86 152/86 O2 Sat by Pulse 95 94 94 Oximetry 08/02/17 08/02/17 08/02/17 13:40 13:50 14:00 Temperature Pulse Rate 65 64 65 Pulse Rate [ From Monitor] Respiratory 17 17 15 Rate Blood Pressure 152/86 152/86 155/89 O2 Sat by Pulse 95 96 95 Oximetry 08/02/17 08/02/17 08/02/17 14:10 14:20 14:30 Temperature Pulse Rate 65 65 66 Pulse Rate [ From Monitor] Respiratory 14 21 14 Rate Blood Pressure 155/89 152/86 152/86 O2 Sat by Pulse 95 94 95 Oximetry 08/02/17 08/02/17 08/02/17 14:40 14:50 15:00 Temperature Pulse Rate 66 66 65 Pulse Rate [ From Monitor] Respiratory 21 17 21 Rate Blood Pressure 152/86 152/86 158/90 O2 Sat by Pulse 95 94 94 Oximetry 08/02/17 08/02/17 08/02/17 15:10 15:20 15:30 Temperature Pulse Rate 65 66 66 Pulse Rate [ From Monitor] Respiratory 16 14 14 Rate Blood Pressure 158/90 155/89 155/89 O2 Sat by Pulse 94 95 95 Oximetry 08/02/17 08/02/17 08/02/17 15:40 15:50 15:56 Temperature Pulse Rate 67 67 67 Pulse Rate [ From Monitor] Respiratory 17 23 Rate Blood Pressure 155/89 158/90 158/90 O2 Sat by Pulse 94 94 94 Oximetry 08/02/17 08/02/17 08/02/17 16:00 16:10 16:20 Temperature Pulse Rate 71 67 67 Pulse Rate [ From Monitor] Respiratory 16 19 18 Rate Blood Pressure 166/97 166/97 166/97 O2 Sat by Pulse 99 94 94 Oximetry 08/02/17 08/02/17 08/02/17 16:22 16:30 16:40 Temperature 99.5 F Pulse Rate 67 67 Pulse Rate [ From Monitor] Respiratory 17 16 Rate Blood Pressure 166/97 166/97 O2 Sat by Pulse 94 94 Oximetry 08/02/17 08/02/17 16:50 17:00 Temperature Pulse Rate 67 68 Pulse Rate [ From Monitor] Respiratory 18 17 Rate Blood Pressure 166/97 158/85 O2 Sat by Pulse 94 94 Oximetry General appearance: Present: no acute distress, well-nourished - EENT Eyes: PERRL, EOM intact - Neck Neck: supple, normal ROM - Respiratory Respiratory effort: normal Respiratory: bilateral: CTA - Cardiovascular Rhythm: regular Heart Sounds: Present: S1 & S2. Absent: gallop, rub Extremities: pulses intact, No edema, normal color, Full ROM - Gastrointestinal General gastrointestinal: Present: soft, non-tender - Integumentary Integumentary: clear, warm, dry - Musculoskeletal Musculoskeletal: 1, strength equal bilaterally - Neurologic Neurologic: moves all extremities - Psychiatric Psychiatric: memory intact, appropriate mood/affect, intact judgment & insight - Labs CBC & Chem 7: 08/02/17 07:09 08/02/17 04:10 Labs: Abnormal lab results 07/28/17 07/28/17 08/01/17 Range/Units 16:00 16:00 11:55 WBC (4.5-11.0) K/mm3 Hgb (11.8-15.2) gm/dl Plt Count (140-440) K/mm3 POC ABG pH (7.35-7.45) POC ABG pCO2 (35-45) POC ABG pO2 (80-105) Sodium (137-145) mmol/L Chloride (98-107) mmol/L BUN (9-20) mg/dL Glucose (75-100) mg/dL POC Glucose 174 H (70-105) Calcium (8.4-10.2) mg/dL C-Reactive Protein (0.00-1.30) mg/dL Complement C3 67 L (90-180) mg/dL Complement C4 14 L (16-47) mg/dL 08/01/17 08/01/17 08/01/17 Range/Units 18:13 19:42 22:01 WBC (4.5-11.0) K/mm3 Hgb (11.8-15.2) gm/dl Plt Count (140-440) K/mm3 POC ABG pH (7.35-7.45) POC ABG pCO2 (35-45) POC ABG pO2 (80-105) Sodium (137-145) mmol/L Chloride (98-107) mmol/L BUN (9-20) mg/dL Glucose (75-100) mg/dL POC Glucose 189 H 165 H (70-105) Calcium (8.4-10.2) mg/dL C-Reactive Protein 4.00 H (0.00-1.30) mg/dL Complement C3 (90-180) mg/dL Complement C4 (16-47) mg/dL 08/02/17 08/02/17 08/02/17 Range/Units 03:40 04:10 06:00 WBC (4.5-11.0) K/mm3 Hgb (11.8-15.2) gm/dl Plt Count (140-440) K/mm3 POC ABG pH 7.474 H (7.35-7.45) POC ABG pCO2 33.8 L (35-45) POC ABG pO2 73 L (80-105) Sodium 148 H (137-145) mmol/L Chloride 109.3 H (98-107) mmol/L BUN 31 H (9-20) mg/dL Glucose 168 H (75-100) mg/dL POC Glucose 172 H (70-105) Calcium 6.8 L (8.4-10.2) mg/dL C-Reactive Protein (0.00-1.30) mg/dL Complement C3 (90-180) mg/dL Complement C4 (16-47) mg/dL 08/02/17 08/02/17 Range/Units 07:09 11:25 WBC 20.1 H (4.5-11.0) K/mm3 Hgb 11.7 L (11.8-15.2) gm/dl Plt Count 127 L (140-440) K/mm3 POC ABG pH (7.35-7.45) POC ABG pCO2 (35-45) POC ABG pO2 (80-105) Sodium (137-145) mmol/L Chloride (98-107) mmol/L BUN (9-20) mg/dL Glucose (75-100) mg/dL POC Glucose 159 H (70-105) Calcium (8.4-10.2) mg/dL C-Reactive Protein (0.00-1.30) mg/dL Complement C3 (90-180) mg/dL Complement C4 (16-47) mg/dL
[2017-08-02] MEDS ORDERED: ASPIRIN PO SCH (18:00)
[2017-08-02] MEDS: ZESTRIL PO SCH (18:14)
[2017-08-02] MEDS: BABY ASPIRIN FEEDTUBE SCH (21:41)
[2017-08-02] MEDS: LOVENOX SUB-Q SCH (21:42)
[2017-08-02] MEDS: NOVOLOG SUB-Q SCH (22:53)
[2017-08-03 03:54] LABS: Basophils % (Auto) 0.1 % (0.0-1.8); Eosinophils # (Auto) 0.1 K/mm3 (0.0-0.4); Eosinophils % (Auto) 0.4 % (0.0-4.3); Hematocrit 36.2 % (35.5-45.6); Hemoglobin 11.9 gm/dl (11.8-15.2); Lymphocytes # (Auto) 1.4 K/mm3 (1.2-5.4); Mean Corpuscular HGB Conc 33 % (32-34); Mean Corpuscular Hemoglobin 29 pg (28-32); Mean Corpuscular Volume 87 fl (84-94); Monocytes # (Auto) 2.2 K/mm3 (0.0-0.8); Monocytes % (Auto) 11.1 % (0.0-7.3); Platelet Count 130 K/mm3 (140-440); Red Blood Count 4.15 M/mm3 (3.65-5.03); Red Cell Distribution Width 14.2 % (13.2-15.2)
[2017-08-03 04:07] LABS: Calcium 6.9 mg/dL (8.4-10.2)
[2017-08-03 05:00] LABS: Albumin 2.9 g/dL (3.8-4.8); Gamma Globulin 0.5 g/dL (0.8-1.7)
[2017-08-03] MEDS: ZOSYN/NS 3.375GM/50ML 3.375 GM/50 ML BAG IV SCH ×3 (05:00→17:36)
--- NOTE | 2017-08-03 06:16 | XRay Report ---
FINAL REPORT PROCEDURE: XR CHEST 1V AP TECHNIQUE: Chest radiograph anteroposterior view. CPT 38331 HISTORY: follow up respiratory failure COMPARISON: No prior studies are available for comparison. FINDINGS: Heart: Enlarged Mediastinum/Vessels: Normal. Lungs/Pleural space: There are infiltrates and effusion at the left lung base. There are no pneumothoraces.. Bony thorax: No acute osseous abnormality. Life support devices: ET tube is in the mid trachea. NG tube is in the stomach.. IMPRESSION: Heart is enlarged.. There are infiltrates and effusion at the left lung base. There are no pneumothoraces.. ET tube is in the mid trachea. NG tube is in the stomach..
--- NOTE | 2017-08-03 08:33 | Progress Note ---
Assessment and Plan 71 year old man with history of CAD, CHF was brought to the emerghency room after he had a cardiac arrest at home. He had a cough productive of yellow phlegm, fever 3 days. EMS was called, CPR was continued for another 40 minutes prior to arrival in the emergency room, he had a V. fib or V. tach rhythm for which he was shocked per EMS. CPR was continued in the emergency room, he was hypotensive and placed on levothyroid and vasopressin. Remains unresponsive. Neurologist evaluating EEG pending - Cardio-resp arrest at home. All interdisciplinary notes reviewed. Remains unresponsive. Intubated and vent supported. Opening eyes - Shock. Cardiogenic +/- septic shock. off vasopressor, BP is stable. - Acute kidney Injury due to acute tubular necrosis. Improving, Creatinine improved to nl. BUN slightly elevated Nephrology following. - CAD s/p CABG. 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 Anoxic encephalopathy. EEG for evolution of cerebral function. Neurologist following. Discussed with Dr. Brown - Hypernatremia: Increase free water intake - Leukocytosis: From presumed aspiration pneumonia versus community acquired pneumonia. Blood cultures no growth to date. Continue Zosyn/ vanco ID following -Pneumonia: left lobar, likely aspiration Blood culture so far are neg. - Seizure: Post arrest. Neurologist on board. - Hyperglycemia: Monitor blood sugars with sliding scale coverage for now - Full code status Discussed at length with patient's regarding patient's status. Discussed with marium Brown - Prophylaxis with Lovenox, GI with Pepcid. Spent 33 minutes of critical care time in direct patient, review of consultants recommendation, laboratory and radiological data Discussed with pt at [facility]. Subjective Date of service: 08/03/17 Principal diagnosis: cardiac arrest at home. Intubated and unresponcsive Interval history: Pt seen and examined. Consulted with his nurse. No overnight event reported. Reviewed laboratory and radiological data. Pt in [facility] room. Pt open eyes but not tracking Objective - Constitutional Vitals: Vital Signs - 12hr 08/02/17 08/02/17 08/02/17 20:30 21:00 21:30 Temperature Pulse Rate 67 68 67 Pulse Rate [ From Monitor] Respiratory 16 20 18 Rate Blood Pressure 161/90 157/91 157/91 O2 Sat by Pulse 95 95 95 Oximetry 08/02/17 08/02/17 08/02/17 21:41 22:00 22:22 Temperature Pulse Rate 68 67 64 Pulse Rate [ From Monitor] Respiratory 17 17 Rate Blood Pressure 157/91 147/84 147/84 O2 Sat by Pulse 96 96 Oximetry 08/02/17 08/02/17 08/02/17 22:30 23:00 23:30 Temperature Pulse Rate 63 62 60 Pulse Rate [ From Monitor] Respiratory 16 17 17 Rate Blood Pressure 147/84 123/68 123/68 O2 Sat by Pulse 96 95 95 Oximetry 08/02/17 08/03/17 08/03/17 23:45 00:00 00:30 Temperature 99.6 F Pulse Rate 64 64 Pulse Rate [ 65 From Monitor] Respiratory 20 19 19 Rate Blood Pressure 145/82 145/82 O2 Sat by Pulse 95 95 96 Oximetry 08/03/17 08/03/17 08/03/17 00:53 01:00 01:30 Temperature Pulse Rate 63 63 62 Pulse Rate [ From Monitor] Respiratory 20 14 Rate Blood Pressure 139/81 139/81 139/81 O2 Sat by Pulse 97 95 96 Oximetry 08/03/17 08/03/17 08/03/17 02:00 02:30 03:00 Temperature Pulse Rate 63 62 62 Pulse Rate [ From Monitor] Respiratory 19 17 15 Rate Blood Pressure 139/81 139/81 147/82 O2 Sat by Pulse 94 95 96 Oximetry 08/03/17 08/03/17 08/03/17 03:30 04:00 04:16 Temperature 99.8 F H Pulse Rate 63 61 60 Pulse Rate [ 59 L From Monitor] Respiratory 19 17 Rate Blood Pressure 147/82 146/83 146/83 O2 Sat by Pulse 95 93 93 Oximetry 08/03/17 08/03/17 08/03/17 04:30 05:00 05:30 Temperature Pulse Rate 59 L 57 L 63 Pulse Rate [ From Monitor] Respiratory 16 15 17 Rate Blood Pressure 147/82 147/82 132/70 O2 Sat by Pulse 94 95 Oximetry 08/03/17 08/03/17 08/03/17 06:00 06:30 07:00 Temperature Pulse Rate 62 62 61 Pulse Rate [ From Monitor] Respiratory 18 17 19 Rate Blood Pressure 158/87 158/87 157/86 O2 Sat by Pulse 93 94 92 Oximetry 08/03/17 08/03/17 08/03/17 07:30 07:32 08:00 Temperature Pulse Rate 61 61 61 Pulse Rate [ 60 From Monitor] Respiratory 19 16 Rate Blood Pressure 157/86 157/86 161/88 O2 Sat by Pulse 94 92 92 Oximetry General appearance: Present: no acute distress, well-nourished (intubated and vent supported), other - EENT Eyes: PERRL, EOM intact ENT: other (corneal reflexes intact) - Neck Neck: supple, normal ROM - Respiratory Respiratory effort: normal Respiratory: bilateral: diminished - Breasts Breasts: change in shape - Cardiovascular Rhythm: regular Heart Sounds: Present: S1 & S2. Absent: gallop, rub Extremities: pulses intact, normal color, Full ROM - Gastrointestinal General gastrointestinal: Present: soft, non-tender, non-distended, normal bowel sounds - Integumentary Integumentary: clear, warm, dry - Musculoskeletal Musculoskeletal: other (intubated) - Neurologic Neurologic: other (unresponsive) - Psychiatric Psychiatric: other (un reponsive) - Labs CBC & Chem 7: 08/03/17 03:29 08/03/17 03:29 Labs: Abnormal lab results 07/29/17 08/02/17 08/02/17 Range/Units Unknown 00:01 11:25 WBC (4.5-11.0) K/mm3 Plt Count (140-440) K/mm3 Lymph % (Auto) (13.4-35.0) % [place] % (Auto) (0.0-7.3) % [place] # (0.0-0.8) K/mm3 Seg Neutrophils % (40.0-70.0) % Seg Neutrophils # (1.8-7.7) K/mm3 POC ABG pH (7.35-7.45) POC ABG pO2 (80-105) Sodium (137-145) mmol/L Chloride (98-107) mmol/L BUN (9-20) mg/dL Glucose (75-100) mg/dL POC Glucose 129 H 159 H (70-105) Calcium (8.4-10.2) mg/dL Serum Total Protein 4.9 L (6.1-8.1) g/dL Albumin 2.9 L (3.8-4.8) g/dL Gmfzd-4-Yeslfpkvu 0.4 H (0.2-0.3) g/dL Gamma Globulins 0.5 L (0.8-1.7) g/dL PEP Interpretation see below H 08/02/17 08/02/17 08/03/17 Range/Units 17:46 22:30 00:05 WBC (4.5-11.0) K/mm3 Plt Count (140-440) K/mm3 Lymph % (Auto) (13.4-35.0) % [place] % (Auto) (0.0-7.3) % [place] # (0.0-0.8) K/mm3 Seg Neutrophils % (40.0-70.0) % Seg Neutrophils # (1.8-7.7) K/mm3 POC ABG pH (7.35-7.45) POC ABG pO2 (80-105) Sodium (137-145) mmol/L Chloride (98-107) mmol/L BUN (9-20) mg/dL Glucose (75-100) mg/dL POC Glucose 171 H 179 H 199 H (70-105) Calcium (8.4-10.2) mg/dL Serum Total Protein (6.1-8.1) g/dL Albumin (3.8-4.8) g/dL Ybkvc-2-Qqwvcrlnx (0.2-0.3) g/dL Gamma Globulins (0.8-1.7) g/dL PEP Interpretation 08/03/17 08/03/17 08/03/17 Range/Units 03:29 03:29 05:40 WBC 19.9 H (4.5-11.0) K/mm3 Plt Count 130 L (140-440) K/mm3 Lymph % (Auto) 7.0 L (13.4-35.0) % [place] % (Auto) 11.1 H (0.0-7.3) % [place] # 2.2 H (0.0-0.8) K/mm3 Seg Neutrophils % 81.4 H (40.0-70.0) % Seg Neutrophils # 16.2 H (1.8-7.7) K/mm3 POC ABG pH 7.468 H (7.35-7.45) POC ABG pO2 70 L (80-105) Sodium 148 H (137-145) mmol/L Chloride 109.1 H (98-107) mmol/L BUN 32 H (9-20) mg/dL Glucose 179 H (75-100) mg/dL POC Glucose (70-105) Calcium 6.9 L (8.4-10.2) mg/dL Serum Total Protein (6.1-8.1) g/dL Albumin (3.8-4.8) g/dL Yirxa-5-Wvgxrjdii (0.2-0.3) g/dL Gamma Globulins (0.8-1.7) g/dL PEP Interpretation 08/03/17 Range/Units 06:01 WBC (4.5-11.0) K/mm3 Plt Count (140-440) K/mm3 Lymph % (Auto) (13.4-35.0) % [place] % (Auto) (0.0-7.3) % [place] # (0.0-0.8) K/mm3 Seg Neutrophils % (40.0-70.0) % Seg Neutrophils # (1.8-7.7) K/mm3 POC ABG pH (7.35-7.45) POC ABG pO2 (80-105) Sodium (137-145) mmol/L Chloride (98-107) mmol/L BUN (9-20) mg/dL Glucose (75-100) mg/dL POC Glucose 179 H (70-105) Calcium (8.4-10.2) mg/dL Serum Total Protein (6.1-8.1) g/dL Albumin (3.8-4.8) g/dL Nrgzn-0-Qbuazbhhw (0.2-0.3) g/dL Gamma Globulins (0.8-1.7) g/dL PEP Interpretation
[2017-08-03] MEDS: LASIX IV SCH (09:19)
[2017-08-03] MEDS: COREG PO SCH ×2 (09:19→21:59)
[2017-08-03] MEDS: BABY ASPIRIN FEEDTUBE SCH (09:19)
[2017-08-03] MEDS: PEPCID IV SCH ×2 (09:19→22:07)
[2017-08-03] MEDS: CORDARONE PO SCH ×2 (09:20→22:07)
[2017-08-03] MEDS: ZESTRIL PO SCH (09:20)
--- NOTE | 2017-08-03 10:20 | Progress Note ---
Assessment and Plan Ventricular fibrillation 40 minutes of ACLS before ROSC Apparently, patient declined ICD 30 days ago Anoxic encephalopathy Ischemic cardiomyopathy, LVEF 15-20% CAD s/p CABG 2006 at [place] ONEILL to LAD; COREY to RI; SVG to PLOM; SVG to RV branch and PDA branch Non-specific troponin Not consistent with ACS Acute renal failure LLL pneumonia Recommendations: Supportive ICU care Neuro assessment and follow-up Any further cardiac intervention will solely depend on neuro recovery Discussed in details with family at the bedside Awaiting EEG Subjective Date of service: 08/03/17 Principal diagnosis: cardiac arrest at home. Intubated and unresponcsive Interval history: No cardiac events on tele Objective Vital Signs Temp Pulse Pulse Resp BP Pulse Ox 08/03/17 09:30 62 16 161/88 94 08/03/17 09:20 62 154/83 08/03/17 09:19 62 154/83 08/03/17 09:00 63 16 154/83 90 08/03/17 08:30 71 25 H 161/88 95 08/03/17 08:00 100.4 F H 61 60 16 161/88 92 08/03/17 07:32 61 157/86 92 08/03/17 07:30 61 19 157/86 94 08/03/17 07:00 61 19 157/86 92 08/03/17 06:30 62 17 158/87 94 08/03/17 06:00 62 18 158/87 93 08/03/17 05:30 63 17 132/70 95 08/03/17 05:00 57 L 15 147/82 08/03/17 04:30 59 L 16 147/82 94 08/03/17 04:16 60 146/83 93 08/03/17 04:00 99.8 F H 61 59 L 17 146/83 93 08/03/17 03:30 63 19 147/82 95 08/03/17 03:00 62 15 147/82 96 08/03/17 02:30 62 17 139/81 95 08/03/17 02:00 63 19 139/81 94 08/03/17 01:30 62 14 139/81 96 08/03/17 01:00 63 20 139/81 95 08/03/17 00:53 63 139/81 97 08/03/17 00:30 64 19 145/82 96 08/03/17 00:00 99.6 F 64 19 145/82 95 08/02/17 23:45 65 20 95 08/02/17 23:30 60 17 123/68 95 08/02/17 23:00 62 17 123/68 95 08/02/17 22:30 63 16 147/84 96 08/02/17 22:22 64 17 147/84 96 08/02/17 22:00 67 17 147/84 96 08/02/17 21:41 68 157/91 08/02/17 21:30 67 18 157/91 95 08/02/17 21:00 68 20 157/91 95 08/02/17 20:30 67 16 161/90 95 08/02/17 20:00 66 67 20 161/90 95 08/02/17 19:56 100.4 F H 08/02/17 19:30 65 10 L 154/89 95 08/02/17 19:00 63 16 134/75 94 08/02/17 18:30 65 19 154/89 94 08/02/17 18:20 65 17 154/89 94 08/02/17 18:14 66 154/89 08/02/17 18:10 66 17 154/89 94 08/02/17 18:00 67 21 154/89 93 08/02/17 17:50 68 19 158/85 94 08/02/17 17:40 68 17 158/85 95 08/02/17 17:30 68 17 158/85 94 08/02/17 17:20 64 16 158/85 94 08/02/17 17:10 66 17 158/85 94 08/02/17 17:00 68 17 158/85 94 08/02/17 16:50 67 18 166/97 94 08/02/17 16:40 67 16 166/97 94 08/02/17 16:30 67 17 166/97 94 08/02/17 16:22 99.5 F 08/02/17 16:20 67 18 166/97 94 08/02/17 16:10 67 19 166/97 94 08/02/17 16:00 71 16 166/97 99 08/02/17 15:56 67 158/90 94 08/02/17 15:50 67 23 158/90 94 08/02/17 15:40 67 17 155/89 94 08/02/17 15:30 66 14 155/89 95 08/02/17 15:20 66 14 155/89 95 08/02/17 15:10 65 16 158/90 94 08/02/17 15:00 65 21 158/90 94 08/02/17 14:50 66 17 152/86 94 08/02/17 14:40 66 21 152/86 95 08/02/17 14:30 66 14 152/86 95 08/02/17 14:20 65 21 152/86 94 08/02/17 14:10 65 14 155/89 95 08/02/17 14:00 65 15 155/89 95 08/02/17 13:50 64 17 152/86 96 08/02/17 13:40 65 17 152/86 95 08/02/17 13:30 65 17 152/86 94 08/02/17 13:20 65 20 152/86 94 08/02/17 13:10 65 17 152/86 95 08/02/17 13:00 66 25 H 152/86 93 08/02/17 12:53 98.7 F 08/02/17 12:50 67 14 146/94 94 08/02/17 12:40 63 15 146/94 93 08/02/17 12:30 63 15 146/94 93 08/02/17 12:20 63 19 146/94 93 08/02/17 12:10 64 22 139/82 93 08/02/17 12:00 64 18 139/82 93 08/02/17 11:59 64 139/82 94 08/02/17 11:50 68 28 H 146/94 94 08/02/17 11:40 67 26 H 146/94 94 08/02/17 11:30 67 27 H 146/94 94 08/02/17 11:20 68 30 H 146/94 93 08/02/17 11:10 75 29 H 146/94 94 08/02/17 11:00 69 24 146/94 94 08/02/17 10:50 68 29 H 159/94 95 08/02/17 10:40 69 30 H 159/94 95 08/02/17 10:30 71 30 H 159/94 94 08/02/17 10:20 71 30 H 159/94 94 - Physical Examination General: Other (intubated on the vent) Neck: Positive: neck supple, trachea midline. Negative: JVD/HJR, Masses Cardiac: Positive: Reg Rate and Rhythm Lungs: Positive: Ventilated Respirations Neuro: Positive: Other (unresponsive on the vent) Abdomen: Positive: Soft Skin: Positive: Clear Extremities: Absent: edema - Labs and Meds CBC 08/03/17 Range/Units 03:29 WBC 19.9 H (4.5-11.0) K/mm3 RBC 4.15 (3.65-5.03) M/mm3 Hgb 11.9 (11.8-15.2) gm/dl Hct 36.2 (35.5-45.6) % Plt Count 130 L (140-440) K/mm3 Lymph # 1.4 (1.2-5.4) K/mm3 [place] # 2.2 H (0.0-0.8) K/mm3 Eos # 0.1 (0.0-0.4) K/mm3 Baso # 0.0 (0.0-0.1) K/mm3 Comprehensive Metabolic Panel 07/29/17 08/03/17 Range/Units Unknown 03:29 Sodium 148 H (137-145) mmol/L Potassium 3.9 (3.6-5.0) mmol/L Chloride 109.1 H (98-107) mmol/L Carbon Dioxide 26 (22-30) mmol/L BUN 32 H (9-20) mg/dL Creatinine 1.3 (0.8-1.5) mg/dL Glucose 179 H (75-100) mg/dL Calcium 6.9 L (8.4-10.2) mg/dL Albumin 2.9 L (3.8-4.8) g/dL - Imaging and Cardiology EKG: image reviewed
--- NOTE | 2017-08-03 10:20 | Progress Note ---
Assessment and Plan Impression * Nonoliguric acute kidney injury due to ischemic ATN s/p cardiac arrest --Hepatitis B and C both are negative --Abd/Pelvis CT - bilateral kidney cysts as well as stones * Status post OOH cardiac arrest * History of coronary artery disease * Hypertension * Metabolic acidosis * Hypernatremia * Microscopic hematuria/proteinuria Recommendations * No indication for renal replacement therapy. * Continue free water to the NG tube. * Recommend holding diuresis for now - Na elevated, FiO2 25% * Await pending vasculitis workup. * Monitor fluid status and electrolytes closely. * Avoid nephrotoxins * Family member at bedside - questions answered Subjective Date of service: 08/03/17 Principal diagnosis: cardiac arrest at home. Intubated and unresponcsive Interval history: No acute events overnight Objective - Vital Signs Vital signs: Vital Signs - 12hr 08/02/17 08/02/17 08/02/17 22:22 22:30 23:00 Temperature Pulse Rate 64 63 62 Pulse Rate [ From Monitor] Respiratory 17 16 17 Rate Blood Pressure 147/84 147/84 123/68 O2 Sat by Pulse 96 96 95 Oximetry 08/02/17 08/02/17 08/03/17 23:30 23:45 00:00 Temperature 99.6 F Pulse Rate 60 64 Pulse Rate [ 65 From Monitor] Respiratory 17 20 19 Rate Blood Pressure 123/68 145/82 O2 Sat by Pulse 95 95 95 Oximetry 08/03/17 08/03/17 08/03/17 00:30 00:53 01:00 Temperature Pulse Rate 64 63 63 Pulse Rate [ From Monitor] Respiratory 19 20 Rate Blood Pressure 145/82 139/81 139/81 O2 Sat by Pulse 96 97 95 Oximetry 08/03/17 08/03/17 08/03/17 01:30 02:00 02:30 Temperature Pulse Rate 62 63 62 Pulse Rate [ From Monitor] Respiratory 14 19 17 Rate Blood Pressure 139/81 139/81 139/81 O2 Sat by Pulse 96 94 95 Oximetry 08/03/17 08/03/17 08/03/17 03:00 03:30 04:00 Temperature 99.8 F H Pulse Rate 62 63 61 Pulse Rate [ 59 L From Monitor] Respiratory 15 19 17 Rate Blood Pressure 147/82 147/82 146/83 O2 Sat by Pulse 96 95 93 Oximetry 08/03/17 08/03/17 08/03/17 04:16 04:30 05:00 Temperature Pulse Rate 60 59 L 57 L Pulse Rate [ From Monitor] Respiratory 16 15 Rate Blood Pressure 146/83 147/82 147/82 O2 Sat by Pulse 93 94 Oximetry 08/03/17 08/03/17 08/03/17 05:30 06:00 06:30 Temperature Pulse Rate 63 62 62 Pulse Rate [ From Monitor] Respiratory 17 18 17 Rate Blood Pressure 132/70 158/87 158/87 O2 Sat by Pulse 95 93 94 Oximetry 08/03/17 08/03/17 08/03/17 07:00 07:30 07:32 Temperature Pulse Rate 61 61 61 Pulse Rate [ From Monitor] Respiratory 19 19 Rate Blood Pressure 157/86 157/86 157/86 O2 Sat by Pulse 92 94 92 Oximetry 08/03/17 08/03/17 08/03/17 08:00 08:30 09:00 Temperature 100.4 F H Pulse Rate 61 71 63 Pulse Rate [ 60 From Monitor] Respiratory 16 25 H 16 Rate Blood Pressure 161/88 161/88 154/83 O2 Sat by Pulse 92 95 90 Oximetry 08/03/17 08/03/17 08/03/17 09:19 09:20 09:30 Temperature Pulse Rate 62 62 62 Pulse Rate [ From Monitor] Respiratory 16 Rate Blood Pressure 154/83 154/83 161/88 O2 Sat by Pulse 94 Oximetry - General Appearance General appearance: well-developed, well-nourished, intubated EENT: ATNC Respiratory: Present: Other (coarse BS) Cardiology: regular, S1S2 Gastrointestinal: normal, no tenderness, no distended Integumentary: no rash, warm and dry Musculoskeletal: other (trace edema) - Lab 08/03/17 03:29 08/03/17 03:29 Most recent lab results Calcium 6.9 mg/dL (8.4-10.2) L 08/03/17 03:29 Urine Creatinine 58.4 mg/dL (0.1-20.0) H 07/28/17 16:20 Urine Sodium 94 mmol/L 07/28/17 16:20
--- NOTE | 2017-08-03 11:22 | Progress Note ---
Assessment and Plan Assessment: 1) S/P prolonged cardiac arrest with presumed sepsis with initial septic vs cardiogenic shock: still fever and leukocytosis. Etiology ? pneumonia 2) Presumed aspiration versus CAP pneumonia: -CT chest showed patchy airspace disease with left sided trace pleural effusion. -Resp culture + normal resp niko -CXR repeat increased RLL opacities -influenza neg -crp=4 3) Respiratory failure 4) Encephalopathy / seizures post cardiac arrest 5) CAD s/p CABG 6) Diabetes 7) Ischemic cardiac myopathy with an ejection fraction of 20-25% 8) Thrombocytopenia - better 9) KATELYN - better 10) Low complement levels ? Plan: -follow-up Legionella urine antigen, Streptococcus pneumoniae urine antigen -continue zosyn - day 4 of 7 -neuro eval +/- EGG Prognosis guarded Thank you Dr Hernandez for your consultation, will follow up with you. Kathie Magdaleno MD Infectious Diseases Specialist [facility] M [phone] Subjective Date of service: 08/03/17 Principal diagnosis: cardiac arrest at home. Intubated and unresponcsive Interval history: Remains on the vent intubated, fio2 25% p5, had a tmax 100.4 Current Antimicrobials: Zosyn 07/31 Vancomycin 07/31 Previous Antimicrobials: Microbiology: Blood cultures: 07/27 ngtd Respiratory cultures: 07/27 normal resp niko Urine cultures: 07/28 neg Influenza: neg Objective - Exam Narrative Exam: General appearance: sedated on the vent Eyes: anicteric sclerae, moist conjunctivae; no lid-lag; PERRLA HENT: Atraumatic; oropharynx +ETT + NGT Neck: Trachea midline; supple, no thyromegaly or lymphadenopathy Lungs: marcin rhonchi CV: RRR Abdomen: Soft, non-tender Extremities: No peripheral edema or extremity lymphadenopathy Skin: Normal temperature, turgor and texture; no rash, ulcers or subcutaneous nodules Psych: sedated Neuro: sedated Lines: femoral line - Constitutional Vitals: Vital Signs Temp Pulse Resp BP Pulse Ox 100.4 F H 60 16 149/83 92 08/03/17 08:00 08/03/17 11:00 08/03/17 11:00 08/03/17 11:00 08/03/17 11:00 Temperature -Last 24 Hours Temperature 100.4 F Temperature 99.8 F Temperature 99.6 F Temperature 100.4 F Temperature 99.5 F Temperature 98.7 F - Labs CBC & Chem 7: 08/03/17 03:29 08/03/17 03:29 Labs: Abnormal lab results 07/29/17 08/02/17 08/02/17 Range/Units Unknown 00:01 11:25 WBC (4.5-11.0) K/mm3 Plt Count (140-440) K/mm3 Lymph % (Auto) (13.4-35.0) % [place] % (Auto) (0.0-7.3) % [place] # (0.0-0.8) K/mm3 Seg Neutrophils % (40.0-70.0) % Seg Neutrophils # (1.8-7.7) K/mm3 POC ABG pH (7.35-7.45) POC ABG pO2 (80-105) Sodium (137-145) mmol/L Chloride (98-107) mmol/L BUN (9-20) mg/dL Glucose (75-100) mg/dL POC Glucose 129 H 159 H (70-105) Calcium (8.4-10.2) mg/dL Serum Total Protein 4.9 L (6.1-8.1) g/dL Albumin 2.9 L (3.8-4.8) g/dL Idylb-7-Ernxgreoi 0.4 H (0.2-0.3) g/dL Gamma Globulins 0.5 L (0.8-1.7) g/dL PEP Interpretation see below H 08/02/17 08/02/17 08/03/17 Range/Units 17:46 22:30 00:05 WBC (4.5-11.0) K/mm3 Plt Count (140-440) K/mm3 Lymph % (Auto) (13.4-35.0) % [place] % (Auto) (0.0-7.3) % [place] # (0.0-0.8) K/mm3 Seg Neutrophils % (40.0-70.0) % Seg Neutrophils # (1.8-7.7) K/mm3 POC ABG pH (7.35-7.45) POC ABG pO2 (80-105) Sodium (137-145) mmol/L Chloride (98-107) mmol/L BUN (9-20) mg/dL Glucose (75-100) mg/dL POC Glucose 171 H 179 H 199 H (70-105) Calcium (8.4-10.2) mg/dL Serum Total Protein (6.1-8.1) g/dL Albumin (3.8-4.8) g/dL Bfumv-3-Vdrunwoxi (0.2-0.3) g/dL Gamma Globulins (0.8-1.7) g/dL PEP Interpretation 08/03/17 08/03/17 08/03/17 Range/Units 03:29 03:29 05:40 WBC 19.9 H (4.5-11.0) K/mm3 Plt Count 130 L (140-440) K/mm3 Lymph % (Auto) 7.0 L (13.4-35.0) % [place] % (Auto) 11.1 H (0.0-7.3) % [place] # 2.2 H (0.0-0.8) K/mm3 Seg Neutrophils % 81.4 H (40.0-70.0) % Seg Neutrophils # 16.2 H (1.8-7.7) K/mm3 POC ABG pH 7.468 H (7.35-7.45) POC ABG pO2 70 L (80-105) Sodium 148 H (137-145) mmol/L Chloride 109.1 H (98-107) mmol/L BUN 32 H (9-20) mg/dL Glucose 179 H (75-100) mg/dL POC Glucose (70-105) Calcium 6.9 L (8.4-10.2) mg/dL Serum Total Protein (6.1-8.1) g/dL Albumin (3.8-4.8) g/dL Eqlro-0-Sgdqkdmap (0.2-0.3) g/dL Gamma Globulins (0.8-1.7) g/dL PEP Interpretation 08/03/17 Range/Units 06:01 WBC (4.5-11.0) K/mm3 Plt Count (140-440) K/mm3 Lymph % (Auto) (13.4-35.0) % [place] % (Auto) (0.0-7.3) % [place] # (0.0-0.8) K/mm3 Seg Neutrophils % (40.0-70.0) % Seg Neutrophils # (1.8-7.7) K/mm3 POC ABG pH (7.35-7.45) POC ABG pO2 (80-105) Sodium (137-145) mmol/L Chloride (98-107) mmol/L BUN (9-20) mg/dL Glucose (75-100) mg/dL POC Glucose 179 H (70-105) Calcium (8.4-10.2) mg/dL Serum Total Protein (6.1-8.1) g/dL Albumin (3.8-4.8) g/dL Bvryv-3-Ffdxrgkvs (0.2-0.3) g/dL Gamma Globulins (0.8-1.7) g/dL PEP Interpretation
--- NOTE | 2017-08-03 13:35 | Consultation ---
History of Present Illness - Reason for Consult Consult date: 08/03/17 - History of Present Illness spoke to no basic change in exam plan EEG patient is neuro stable explained ourse of therapy to her Past History Past Medical History: CAD Social history: no significant social history (denies smoking or drinking) Family history: no significant family history (negative for kidney disease) Medications and Allergies Allergies Allergy/AdvReac Type Severity Reaction Status Date / Time acetaminophen [From Vicodin] Allergy Unknown Verified 07/27/17 18:13 hydrocodone [From Vicodin] Allergy Unknown Verified 07/27/17 18:13 zolpidem [From Ambien] Allergy Unknown Verified 07/27/17 18:13 Home Medications Medication Instructions Recorded Confirmed Last Taken Type Aspirin [Aspirin BABY CHEW TAB] 1 tab PO QDAY 07/29/17 07/29/17 07/25/17 History AtorvaSTATin [Lipitor] 40 mg PO QHS 07/29/17 07/29/17 07/25/17 History Clopidogrel [Plavix] 75 mg PO QDAY 07/29/17 07/29/17 07/25/17 History ISOSORBIDE MONOnitrate [Imdur ER] 30 mg PO DAILY 07/29/17 07/29/17 07/25/17 History Spironolactone [Aldactone] 25 mg PO QDAY 07/29/17 07/29/17 07/25/17 History Tamsulosin HCl [Flomax] 1 tab PO QDAY 07/29/17 07/29/17 07/25/17 History Carvedilol [Coreg] 12.5 mg PO BID 07/30/17 07/30/17 07/27/17 09:00 History Sacubitril/Valsartan [Entresto 49 49 - 51 mg PO BID 07/30/17 07/30/17 07/27/17 09:00 History mg-51 mg Tablet] Active Meds: Active Medications Acetaminophen (Tylenol) 650 mg PO Q6HR PRN PRN Reason: Fever Last Admin: 08/01/17 13:51 Dose: 650 mg Albuterol (Proventil) 2.5 mg IH Q3HRT PRN PRN Reason: Shortness Of Breath Amiodarone HCl (Cordarone) 200 mg PO BID DANIEL Last Admin: 08/03/17 09:20 Dose: 200 mg Lipase/Protease/Amylase (Pancreaze Dr 10,500 Unit) 1 each FEEDTUBE PRN PRN PRN Reason: For Clogged Feeding Tube Last Admin: 07/31/17 10:07 Dose: 1 each Aspirin (Baby Aspirin) 81 mg FEEDTUBE QDAY [facility] Last Admin: 08/03/17 09:19 Dose: 81 mg Carvedilol (Coreg) 3.125 mg PO BID [facility] Last Admin: 08/03/17 09:19 Dose: 3.125 mg Enoxaparin Sodium (Lovenox) 40 mg SUB-Q QDAY@2200 [facility] Last Admin: 08/02/17 21:42 Dose: 40 mg Famotidine (Pepcid) 20 mg IV BID [facility] Last Admin: 08/03/17 09:19 Dose: 20 mg Furosemide (Lasix) 20 mg IV QDAY [facility] Last Admin: 08/03/17 09:19 Dose: 20 mg Hydrophilic Ointment (Vaseline Lip Therapy) 1 applic TP Q2HR PRN PRN Reason: Dry Lips Vasopressin 20 unit/ Sodium (Chloride) 101 mls @ 9.09 mls/hr IV TITR DANIEL; 0.03 UNITS/MIN PRN Reason: Protocol Last Titration: 07/30/17 09:21 Dose: 0 units/min, 0 mls/hr Norepinephrine (Levophed Drip 4 Mg/Ns 250 Ml) 4 mg in 250 mls @ 7.5 mls/hr IV TITR DANIEL; 2 MCG/MIN PRN Reason: Protocol Piperacillin Sod/Tazobactam Sod (Zosyn/Ns 3.375gm/50ml) 3.375 gm in 50 mls @ 100 mls/hr IV Q6HR DANIEL PRN Reason: Protocol Last Admin: 08/03/17 12:11 Dose: 100 mls/hr Insulin Aspart (Novolog) 0 units SUB-Q QHS DANIEL PRN Reason: Protocol Last Admin: 08/02/17 22:53 Dose: 2 units Insulin Human Regular (Novolin R) 0 units SUB-Q Q6HR DANIEL PRN Reason: Protocol Last Admin: 08/03/17 12:11 Dose: 1 units Lisinopril (Zestril) 5 mg PO QDAY [facility] Last Admin: 08/03/17 09:20 Dose: 5 mg Lorazepam (Ativan) 1 mg IV Q4H PRN PRN Reason: seizures/twitching Multi-Ingred Cream/Lotion/Oil/Oint (Artificial Tears Ophth Oint) 1 applic OU Q4HR PRN PRN Reason: Dry Eye(s) Ondansetron HCl (Zofran) 4 mg IV Q8H PRN PRN Reason: N/V unrelieved by Reglan Simple Syrup (Simple Syrup) 15 ml FEEDTUBE PRN PRN PRN Reason: Hypoglycemia Simple Syrup (Simple Syrup) 30 ml FEEDTUBE PRN PRN PRN Reason: Hypoglycemia Sodium Chloride (Nacl 0.9% 500 Ml) 1 ml IV DIRECT DANIEL Exam - Constitutional Vitals: Temp Pulse Resp BP Pulse Ox 100.4 F H 61 16 150/81 92 08/03/17 08:00 08/03/17 13:00 08/03/17 13:00 08/03/17 13:00 08/03/17 13:00 Results - Labs CBC & Chem 7: 08/03/17 03:29 08/03/17 03:29 Labs: Abnormal lab results 07/29/17 08/02/17 08/02/17 Range/Units Unknown 00:01 17:46 WBC (4.5-11.0) K/mm3 Plt Count (140-440) K/mm3 Lymph % (Auto) (13.4-35.0) % [place] % (Auto) (0.0-7.3) % Meade # (0.0-0.8) K/mm3 Seg Neutrophils % (40.0-70.0) % Seg Neutrophils # (1.8-7.7) K/mm3 POC ABG pH (7.35-7.45) POC ABG pO2 (80-105) Sodium (137-145) mmol/L Chloride (98-107) mmol/L BUN (9-20) mg/dL Glucose (75-100) mg/dL POC Glucose 129 H 171 H (70-105) Calcium (8.4-10.2) mg/dL Serum Total Protein 4.9 L (6.1-8.1) g/dL Albumin 2.9 L (3.8-4.8) g/dL Oreve-9-Hwjfvrsde 0.4 H (0.2-0.3) g/dL Gamma Globulins 0.5 L (0.8-1.7) g/dL PEP Interpretation see below H 08/02/17 08/03/17 08/03/17 Range/Units 22:30 00:05 03:29 WBC (4.5-11.0) K/mm3 Plt Count (140-440) K/mm3 Lymph % (Auto) (13.4-35.0) % [place] % (Auto) (0.0-7.3) % [place]ade # (0.0-0.8) K/mm3 Seg Neutrophils % (40.0-70.0) % Seg Neutrophils # (1.8-7.7) K/mm3 POC ABG pH (7.35-7.45) POC ABG pO2 (80-105) Sodium 148 H (137-145) mmol/L Chloride 109.1 H (98-107) mmol/L BUN 32 H (9-20) mg/dL Glucose 179 H (75-100) mg/dL POC Glucose 179 H 199 H (70-105) Calcium 6.9 L (8.4-10.2) mg/dL Serum Total Protein (6.1-8.1) g/dL Albumin (3.8-4.8) g/dL Azpvc-8-Szzilhewl (0.2-0.3) g/dL Gamma Globulins (0.8-1.7) g/dL PEP Interpretation 08/03/17 08/03/17 08/03/17 Range/Units 03:29 05:40 06:01 WBC 19.9 H (4.5-11.0) K/mm3 Plt Count 130 L (140-440) K/mm3 Lymph % (Auto) 7.0 L (13.4-35.0) % [place] % (Auto) 11.1 H (0.0-7.3) % Meade # 2.2 H (0.0-0.8) K/mm3 Seg Neutrophils % 81.4 H (40.0-70.0) % Seg Neutrophils # 16.2 H (1.8-7.7) K/mm3 POC ABG pH 7.468 H (7.35-7.45) POC ABG pO2 70 L (80-105) Sodium (137-145) mmol/L Chloride (98-107) mmol/L BUN (9-20) mg/dL Glucose (75-100) mg/dL POC Glucose 179 H (70-105) Calcium (8.4-10.2) mg/dL Serum Total Protein (6.1-8.1) g/dL Albumin (3.8-4.8) g/dL Adqzh-1-Aawgmtmdm (0.2-0.3) g/dL Gamma Globulins (0.8-1.7) g/dL PEP Interpretation
--- NOTE | 2017-08-03 14:25 | Progress Note ---
Assessment and Plan Imp: 1. S/p CP arrest, ? primary cardiac event (e.g. arrhythmia) in setting of ICMP 2. Anoxic enceph 3. Acute respiratory failure, hypoxia 4. KATELYN 5. Hypernatremia 6. ICMP 7. 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 ? LLL aspiration pneumonia/sepsis Rec: 1. ABX per ID; f/u cultures; fever may be central 2. Removed groin line 3. Hold all sedation 4. D/c IVFs; cont. TFs; increased free water per FT; defer Lasix to renal 5. Awaiting neurology recs/EEG, etc. 6. GI PPx 7. SCDs; monitor platelets 8. Guarded prognosis Plan of care reviewed with patient's , she understand/agree CCt 31 minutes Subjective Date of service: 08/03/17 Principal diagnosis: cardiac arrest at home. Intubated and unresponcsive Interval history: No events. On vent. Unresponsive although eyes open. Off all pressors. Active Medications Acetaminophen (Tylenol) 650 mg PO Q6HR PRN PRN Reason: Fever Last Admin: 08/01/17 13:51 Dose: 650 mg Albuterol (Proventil) 2.5 mg IH Q3HRT PRN PRN Reason: Shortness Of Breath Amiodarone HCl (Cordarone) 200 mg PO BID [facility] Last Admin: 08/03/17 09:20 Dose: 200 mg Lipase/Protease/Amylase (Pancreaze Dr 10,500 Unit) 1 each FEEDTUBE PRN PRN PRN Reason: For Clogged Feeding Tube Last Admin: 07/31/17 10:07 Dose: 1 each Aspirin (Baby Aspirin) 81 mg FEEDTUBE QDAY [facility] Last Admin: 08/03/17 09:19 Dose: 81 mg Carvedilol (Coreg) 3.125 mg PO BID [facility] Last Admin: 08/03/17 09:19 Dose: 3.125 mg Enoxaparin Sodium (Lovenox) 40 mg SUB-Q QDAY@2200 [facility] Last Admin: 08/02/17 21:42 Dose: 40 mg Famotidine (Pepcid) 20 mg IV BID [facility] Last Admin: 08/03/17 09:19 Dose: 20 mg Furosemide (Lasix) 20 mg IV QDAY [facility] Last Admin: 08/03/17 09:19 Dose: 20 mg Hydrophilic Ointment (Vaseline Lip Therapy) 1 applic TP Q2HR PRN PRN Reason: Dry Lips Vasopressin 20 unit/ Sodium (Chloride) 101 mls @ 9.09 mls/hr IV TITR DANIEL; 0.03 UNITS/MIN PRN Reason: Protocol Last Titration: 07/30/17 09:21 Dose: 0 units/min, 0 mls/hr Norepinephrine (Levophed Drip 4 Mg/Ns 250 Ml) 4 mg in 250 mls @ 7.5 mls/hr IV TITR DANIEL; 2 MCG/MIN PRN Reason: Protocol Piperacillin Sod/Tazobactam Sod (Zosyn/Ns 3.375gm/50ml) 3.375 gm in 50 mls @ 100 mls/hr IV Q6HR DANIEL PRN Reason: Protocol Last Admin: 08/03/17 12:11 Dose: 100 mls/hr Insulin Aspart (Novolog) 0 units SUB-Q QHS DANIEL PRN Reason: Protocol Last Admin: 08/02/17 22:53 Dose: 2 units Insulin Human Regular (Novolin R) 0 units SUB-Q Q6HR DANIEL PRN Reason: Protocol Last Admin: 08/03/17 12:11 Dose: 1 units Lisinopril (Zestril) 5 mg PO QDAY DANIEL Last Admin: 08/03/17 09:20 Dose: 5 mg Lorazepam (Ativan) 1 mg IV Q4H PRN PRN Reason: seizures/twitching Multi-Ingred Cream/Lotion/Oil/Oint (Artificial Tears Ophth Oint) 1 applic OU Q4HR PRN PRN Reason: Dry Eye(s) Ondansetron HCl (Zofran) 4 mg IV Q8H PRN PRN Reason: N/V unrelieved by Reglan Simple Syrup (Simple Syrup) 15 ml FEEDTUBE PRN PRN PRN Reason: Hypoglycemia Simple Syrup (Simple Syrup) 30 ml FEEDTUBE PRN PRN PRN Reason: Hypoglycemia Sodium Chloride (Nacl 0.9% 500 Ml) 1 ml IV DIRECT DANIEL Objective Vital Signs - 12hr 08/03/17 08/03/17 08/03/17 02:30 03:00 03:30 Temperature Pulse Rate 62 62 63 Pulse Rate [ From Monitor] Respiratory 17 15 19 Rate Blood Pressure 139/81 147/82 147/82 O2 Sat by Pulse 95 96 95 Oximetry 08/03/17 08/03/17 08/03/17 04:00 04:16 04:30 Temperature 99.8 F H Pulse Rate 61 60 59 L Pulse Rate [ 59 L From Monitor] Respiratory 17 16 Rate Blood Pressure 146/83 146/83 147/82 O2 Sat by Pulse 93 93 94 Oximetry 08/03/17 08/03/17 08/03/17 05:00 05:30 06:00 Temperature Pulse Rate 57 L 63 62 Pulse Rate [ From Monitor] Respiratory 15 17 18 Rate Blood Pressure 147/82 132/70 158/87 O2 Sat by Pulse 95 93 Oximetry 08/03/17 08/03/17 08/03/17 06:30 07:00 07:30 Temperature Pulse Rate 62 61 61 Pulse Rate [ From Monitor] Respiratory 17 19 19 Rate Blood Pressure 158/87 157/86 157/86 O2 Sat by Pulse 94 92 94 Oximetry 08/03/17 08/03/17 08/03/17 07:32 08:00 08:30 Temperature 100.4 F H Pulse Rate 61 61 71 Pulse Rate [ 60 From Monitor] Respiratory 16 25 H Rate Blood Pressure 157/86 161/88 161/88 O2 Sat by Pulse 92 92 95 Oximetry 08/03/17 08/03/17 08/03/17 09:00 09:19 09:20 Temperature Pulse Rate 63 62 62 Pulse Rate [ From Monitor] Respiratory 16 Rate Blood Pressure 154/83 154/83 154/83 O2 Sat by Pulse 90 Oximetry 08/03/17 08/03/17 08/03/17 09:30 10:00 10:30 Temperature Pulse Rate 62 60 59 L Pulse Rate [ From Monitor] Respiratory 16 16 16 Rate Blood Pressure 161/88 141/77 141/77 O2 Sat by Pulse 94 92 94 Oximetry 08/03/17 08/03/17 08/03/17 11:00 11:30 11:38 Temperature Pulse Rate 60 62 60 Pulse Rate [ From Monitor] Respiratory 16 16 Rate Blood Pressure 149/83 149/83 149/83 O2 Sat by Pulse 92 95 92 Oximetry 08/03/17 08/03/17 08/03/17 12:00 12:30 13:00 Temperature 100.2 F H Pulse Rate 62 61 61 Pulse Rate [ From Monitor] Respiratory 17 17 16 Rate Blood Pressure 153/81 153/81 150/81 O2 Sat by Pulse 91 94 92 Oximetry 08/03/17 08/03/17 13:30 14:00 Temperature Pulse Rate 61 60 Pulse Rate [ From Monitor] Respiratory 16 16 Rate Blood Pressure 150/81 151/83 O2 Sat by Pulse 95 93 Oximetry Constitutional: comatose (eyes open, not following commands, flaccid extremities ) Eyes: non-icteric ENT: oropharynx moist Neck: supple Effort: normal Ascultation: Bilateral: clear Cardiovascular: regular rate and rhythm (no mrg) Gastrointestinal: normoactive bowel sounds, soft, non-tender, non-distended Integumentary: normal Extremities: no cyanosis, no edema, pink and warm Neurologic: other (see above) Psychiatric: other (unable to assess) CBC and BMP: 08/03/17 03:29 08/03/17 03:29 ABG, PT/INR, D-dimer: ABG POC ABG pH 7.468 (7.35-7.45) H 08/03/17 05:40 POC ABG pCO2 37.0 (35-45) 08/03/17 05:40 POC ABG pO2 70 (80-105) L 08/03/17 05:40 POC ABG HCO3 26.8 08/03/17 05:40 POC ABG Total CO2 28 08/03/17 05:40 POC ABG O2 Sat 95 08/03/17 05:40 PT/INR, D-dimer PT 15.6 Sec. (12.2-14.9) H 07/27/17 18:26 INR 1.18 (0.87-1.13) H 07/27/17 18:26 Abnormal lab findings: Abnormal Labs 07/27/17 07/27/17 07/27/17 18:26 18:26 18:26 WBC 15.6 H Hgb MCHC Plt Count 115 L Lymph % (Auto) [place] % (Auto) [place] # Seg Neutrophils % Lymphocytes % (Manual) 36.0 H Seg Neutrophils # Seg Neutrophils # Man 8.9 H Lymphocytes # (Manual) 5.6 H Monocytes # (Manual) 1.1 H PT 15.6 H INR 1.18 H APTT 38.5 H POC ABG pH POC ABG pCO2 POC ABG pO2 Sodium Potassium Chloride Carbon Dioxide 21 L BUN Creatinine Glucose 252 H POC Glucose Lactic Acid Calcium 7.7 L Total Creatine Kinase CK-MB (CK-2) CK-MB (CK-2) Rel Index Troponin T 0.090 H C-Reactive Protein Serum Total Protein Albumin Obnzk-5-Dfkrbaozo Gamma Globulins PEP Interpretation Triglycerides 190 H LDL Cholesterol Direct 34 L HDL Cholesterol 21 L Urine WBC (Auto) Urine Creatinine Complement C3 Complement C4 07/27/17 07/27/17 07/27/17 19:02 19:25 21:43 WBC Hgb MCHC Plt Count Lymph % (Auto) [place] % (Auto) [place] # Seg Neutrophils % Lymphocytes % (Manual) Seg Neutrophils # Seg Neutrophils # Man Lymphocytes # (Manual) Monocytes # (Manual) PT INR APTT POC ABG pH 7.155 L POC ABG pCO2 47.7 H POC ABG pO2 229 H Sodium Potassium Chloride Carbon Dioxide BUN Creatinine Glucose POC Glucose Lactic Acid 6.00 H* Calcium Total Creatine Kinase CK-MB (CK-2) 4.8 H CK-MB (CK-2) Rel Index Troponin T 0.149 H* D C-Reactive Protein Serum Total Protein Albumin Dwwow-0-Tcebpgiop Gamma Globulins PEP Interpretation Triglycerides LDL Cholesterol Direct HDL Cholesterol Urine WBC (Auto) Urine Creatinine Complement C3 Complement C4 07/27/17 07/27/17 07/28/17 22:47 22:47 01:47 WBC Hgb MCHC Plt Count Lymph % (Auto) [place] % (Auto) [place] # Seg Neutrophils % Lymphocytes % (Manual) Seg Neutrophils # Seg Neutrophils # Man Lymphocytes # (Manual) Monocytes # (Manual) PT INR APTT POC ABG pH POC ABG pCO2 POC ABG pO2 Sodium Potassium Chloride Carbon Dioxide BUN Creatinine Glucose POC Glucose 199 H Lactic Acid 2.40 H* Calcium Total Creatine Kinase 222 H CK-MB (CK-2) 9.4 H CK-MB (CK-2) Rel Index 4.2 H Troponin T 0.852 H* D C-Reactive Protein Serum Total Protein Albumin Yxfow-6-Xzfbzkvdu Gamma Globulins PEP Interpretation Triglycerides LDL Cholesterol Direct HDL Cholesterol Urine WBC (Auto) Urine Creatinine Complement C3 Complement C4 07/28/17 07/28/17 07/28/17 05:29 05:44 05:44 WBC Hgb MCHC Plt Count Lymph % (Auto) [place] % (Auto) [place] # Seg Neutrophils % Lymphocytes % (Manual) Seg Neutrophils # Seg Neutrophils # Man Lymphocytes # (Manual) Monocytes # (Manual) PT INR APTT POC ABG pH 7.268 L POC ABG pCO2 34.8 L POC ABG pO2 Sodium 146 H Potassium 5.1 H D Chloride 113.3 H Carbon Dioxide 18 L BUN 29 H Creatinine 2.0 H D Glucose 194 H POC Glucose Lactic Acid 2.10 H* Calcium 6.8 L Total Creatine Kinase CK-MB (CK-2) CK-MB (CK-2) Rel Index Troponin T C-Reactive Protein Serum Total Protein Albumin Oipcz-3-Wuhpxnptn Gamma Globulins PEP Interpretation Triglycerides LDL Cholesterol Direct HDL Cholesterol Urine WBC (Auto) Urine Creatinine Complement C3 Complement C4 07/28/17 07/28/17 07/28/17 05:44 06:30 16:00 WBC 16.9 H Hgb MCHC 31 L Plt Count Lymph % (Auto) 8.4 L [place] % (Auto) 7.5 H [place] # 1.3 H Seg Neutrophils % 84.1 H Lymphocytes % (Manual) Seg Neutrophils # 14.2 H Seg Neutrophils # Man Lymphocytes # (Manual) Monocytes # (Manual) PT INR APTT POC ABG pH POC ABG pCO2 POC ABG pO2 Sodium 146 H Potassium Chloride Carbon Dioxide BUN Creatinine 2.4 H Glucose POC Glucose Lactic Acid Calcium Total Creatine Kinase 434 H CK-MB (CK-2) 10.8 H CK-MB (CK-2) Rel Index Troponin T 0.521 H* D C-Reactive Protein Serum Total Protein Albumin Ovaii-1-Ieamwofpj Gamma Globulins PEP Interpretation Triglycerides LDL Cholesterol Direct HDL Cholesterol Urine WBC (Auto) Urine Creatinine Complement C3 Complement C4 07/28/17 07/28/17 07/28/17 16:00 16:00 16:20 WBC Hgb MCHC Plt Count Lymph % (Auto) [place] % (Auto) [place] # Seg Neutrophils % Lymphocytes % (Manual) Seg Neutrophils # Seg Neutrophils # Man Lymphocytes # (Manual) Monocytes # (Manual) PT INR APTT POC ABG pH POC ABG pCO2 POC ABG pO2 Sodium Potassium Chloride Carbon Dioxide BUN Creatinine Glucose POC Glucose Lactic Acid Calcium Total Creatine Kinase CK-MB (CK-2) CK-MB (CK-2) Rel Index Troponin T C-Reactive Protein Serum Total Protein Albumin Fcevd-7-Ntooakfsu Gamma Globulins PEP Interpretation Triglycerides LDL Cholesterol Direct HDL Cholesterol Urine WBC (Auto) 12.0 H Urine Creatinine Complement C3 67 L Complement C4 14 L 07/28/17 07/29/17 07/29/17 16:20 04:02 05:00 WBC Hgb MCHC Plt Count Lymph % (Auto) [place] % (Auto) [place] # Seg Neutrophils % Lymphocytes % (Manual) Seg Neutrophils # Seg Neutrophils # Man Lymphocytes # (Manual) Monocytes # (Manual) PT INR APTT POC ABG pH 7.304 L POC ABG pCO2 31.6 L POC ABG pO2 Sodium Potassium Chloride 111.7 H Carbon Dioxide 18 L BUN 37 H Creatinine 2.1 H Glucose 213 H POC Glucose Lactic Acid Calcium 6.9 L Total Creatine Kinase CK-MB (CK-2) CK-MB (CK-2) Rel Index Troponin T C-Reactive Protein Serum Total Protein Albumin Yxpul-3-Rsvirxgbr Gamma Globulins PEP Interpretation Triglycerides LDL Cholesterol Direct HDL Cholesterol Urine WBC (Auto) Urine Creatinine 58.4 H Complement C3 Complement C4 07/29/17 07/29/17 07/30/17 Unknown Unknown 04:07 WBC 14.4 H Hgb MCHC Plt Count 125 L Lymph % (Auto) [place] % (Auto) [place] # Seg Neutrophils % Lymphocytes % (Manual) Seg Neutrophils # Seg Neutrophils # Man Lymphocytes # (Manual) Monocytes # (Manual) PT INR APTT POC ABG pH 7.319 L POC ABG pCO2 27.8 L POC ABG pO2 121 H Sodium Potassium Chloride Carbon Dioxide BUN Creatinine Glucose POC Glucose Lactic Acid Calcium Total Creatine Kinase CK-MB (CK-2) CK-MB (CK-2) Rel Index Troponin T C-Reactive Protein Serum Total Protein 4.9 L Albumin 2.9 L Xziag-7-Dlzaghwxw 0.4 H Gamma Globulins 0.5 L PEP Interpretation see below H Triglycerides LDL Cholesterol Direct HDL Cholesterol Urine WBC (Auto) Urine Creatinine Complement C3 Complement C4 07/30/17 07/30/17 07/30/17 12:43 17:22 23:27 WBC Hgb MCHC Plt Count Lymph % (Auto) [place] % (Auto) [place] # Seg Neutrophils % Lymphocytes % (Manual) Seg Neutrophils # Seg Neutrophils # Man Lymphocytes # (Manual) Monocytes # (Manual) PT INR APTT POC ABG pH POC ABG pCO2 POC ABG pO2 Sodium Potassium Chloride Carbon Dioxide BUN Creatinine Glucose POC Glucose 134 H 117 H 173 H Lactic Acid Calcium Total Creatine Kinase CK-MB (CK-2) CK-MB (CK-2) Rel Index Troponin T C-Reactive Protein Serum Total Protein Albumin Kvqdd-5-Hhtrpjwdz Gamma Globulins PEP Interpretation Triglycerides LDL Cholesterol Direct HDL Cholesterol Urine WBC (Auto) Urine Creatinine Complement C3 Complement C4 07/30/17 07/30/17 07/31/17 Unknown Unknown 04:13 WBC 15.6 H Hgb MCHC Plt Count 117 L Lymph % (Auto) [place] % (Auto) [place] # Seg Neutrophils % Lymphocytes % (Manual) Seg Neutrophils # Seg Neutrophils # Man Lymphocytes # (Manual) Monocytes # (Manual) PT INR APTT POC ABG pH POC ABG pCO2 26.8 L POC ABG pO2 74 L Sodium 146 H Potassium Chloride 113.8 H Carbon Dioxide 18 L BUN 36 H Creatinine 1.8 H Glucose 177 H POC Glucose Lactic Acid Calcium 6.9 L Total Creatine Kinase CK-MB (CK-2) CK-MB (CK-2) Rel Index Troponin T C-Reactive Protein Serum Total Protein Albumin Ownkp-0-Niygadhkn Gamma Globulins PEP Interpretation Triglycerides LDL Cholesterol Direct HDL Cholesterol Urine WBC (Auto) Urine Creatinine Complement C3 Complement C4 07/31/17 07/31/17 07/31/17 05:00 05:00 05:01 WBC 18.5 H Hgb MCHC Plt Count 135 L Lymph % (Auto) [place] % (Auto) [place] # Seg Neutrophils % Lymphocytes % (Manual) Seg Neutrophils # Seg Neutrophils # Man Lymphocytes # (Manual) Monocytes # (Manual) PT INR APTT POC ABG pH POC ABG pCO2 POC ABG pO2 Sodium 148 H Potassium Chloride 112.8 H Carbon Dioxide 20 L BUN 33 H Creatinine 1.6 H Glucose 188 H POC Glucose 219 H Lactic Acid Calcium 7.1 L Total Creatine Kinase CK-MB (CK-2) CK-MB (CK-2) Rel Index Troponin T C-Reactive Protein Serum Total Protein Albumin Ajlpw-0-Txjnzusjy Gamma Globulins PEP Interpretation Triglycerides LDL Cholesterol Direct HDL Cholesterol Urine WBC (Auto) Urine Creatinine Complement C3 Complement C4 07/31/17 07/31/17 08/01/17 14:36 17:57 00:02 WBC Hgb MCHC Plt Count Lymph % (Auto) [place] % (Auto) [place] # Seg Neutrophils % Lymphocytes % (Manual) Seg Neutrophils # Seg Neutrophils # Man Lymphocytes # (Manual) Monocytes # (Manual) PT INR APTT POC ABG pH POC ABG pCO2 POC ABG pO2 Sodium Potassium Chloride Carbon Dioxide BUN Creatinine Glucose POC Glucose 199 H 216 H 131 H Lactic Acid Calcium Total Creatine Kinase CK-MB (CK-2) CK-MB (CK-2) Rel Index Troponin T C-Reactive Protein Serum Total Protein Albumin Uznin-4-Yroyhhzhq Gamma Globulins PEP Interpretation Triglycerides LDL Cholesterol Direct HDL Cholesterol Urine WBC (Auto) Urine Creatinine Complement C3 Complement C4 08/01/17 08/01/17 08/01/17 03:22 04:10 04:10 WBC 19.3 H Hgb MCHC Plt Count 129 L Lymph % (Auto) [place] % (Auto) [place] # Seg Neutrophils % Lymphocytes % (Manual) Seg Neutrophils # Seg Neutrophils # Man Lymphocytes # (Manual) Monocytes # (Manual) PT INR APTT POC ABG pH 7.481 H POC ABG pCO2 29.6 L POC ABG pO2 65 L Sodium 148 H Potassium Chloride 113.2 H Carbon Dioxide 21 L BUN 29 H Creatinine Glucose 173 H POC Glucose Lactic Acid Calcium 7.3 L Total Creatine Kinase CK-MB (CK-2) CK-MB (CK-2) Rel Index Troponin T C-Reactive Protein Serum Total Protein Albumin Ygncl-7-Pmigrktja Gamma Globulins PEP Interpretation Triglycerides LDL Cholesterol Direct HDL Cholesterol Urine WBC (Auto) Urine Creatinine Complement C3 Complement C4 08/01/17 08/01/17 08/01/17 05:18 11:55 18:13 WBC Hgb MCHC Plt Count Lymph % (Auto) [place] % (Auto) [place] # Seg Neutrophils % Lymphocytes % (Manual) Seg Neutrophils # Seg Neutrophils # Man Lymphocytes # (Manual) Monocytes # (Manual) PT INR APTT POC ABG pH POC ABG pCO2 POC ABG pO2 Sodium Potassium Chloride Carbon Dioxide BUN Creatinine Glucose POC Glucose 179 H 174 H 189 H Lactic Acid Calcium Total Creatine Kinase CK-MB (CK-2) CK-MB (CK-2) Rel Index Troponin T C-Reactive Protein Serum Total Protein Albumin Yqfie-1-Khrxarkjl Gamma Globulins PEP Interpretation Triglycerides LDL Cholesterol Direct HDL Cholesterol Urine WBC (Auto) Urine Creatinine Complement C3 Complement C4 08/01/17 08/01/17 08/02/17 19:42 22:01 00:01 WBC Hgb MCHC Plt Count Lymph % (Auto) [place] % (Auto) [place] # Seg Neutrophils % Lymphocytes % (Manual) Seg Neutrophils # Seg Neutrophils # Man Lymphocytes # (Manual) Monocytes # (Manual) PT INR APTT POC ABG pH POC ABG pCO2 POC ABG pO2 Sodium Potassium Chloride Carbon Dioxide BUN Creatinine Glucose POC Glucose 165 H 129 H Lactic Acid Calcium Total Creatine Kinase CK-MB (CK-2) CK-MB (CK-2) Rel Index Troponin T C-Reactive Protein 4.00 H Serum Total Protein Albumin Fqkst-9-Fndjipmgi Gamma Globulins PEP Interpretation Triglycerides LDL Cholesterol Direct HDL Cholesterol Urine WBC (Auto) Urine Creatinine Complement C3 Complement C4 08/02/17 08/02/17 08/02/17 03:40 04:10 06:00 WBC Hgb MCHC Plt Count Lymph % (Auto) [place] % (Auto) [place] # Seg Neutrophils % Lymphocytes % (Manual) Seg Neutrophils # Seg Neutrophils # Man Lymphocytes # (Manual) Monocytes # (Manual) PT INR APTT POC ABG pH 7.474 H POC ABG pCO2 33.8 L POC ABG pO2 73 L Sodium 148 H Potassium Chloride 109.3 H Carbon Dioxide BUN 31 H Creatinine Glucose 168 H POC Glucose 172 H Lactic Acid Calcium 6.8 L Total Creatine Kinase CK-MB (CK-2) CK-MB (CK-2) Rel Index Troponin T C-Reactive Protein Serum Total Protein Albumin Svjpl-7-Ojohdxfmh Gamma Globulins PEP Interpretation Triglycerides LDL Cholesterol Direct HDL Cholesterol Urine WBC (Auto) Urine Creatinine Complement C3 Complement C4 08/02/17 08/02/17 08/02/17 07:09 11:25 17:46 WBC 20.1 H Hgb 11.7 L MCHC Plt Count 127 L Lymph % (Auto) [place] % (Auto) [place] # Seg Neutrophils % Lymphocytes % (Manual) Seg Neutrophils # Seg Neutrophils # Man Lymphocytes # (Manual) Monocytes # (Manual) PT INR APTT POC ABG pH POC ABG pCO2 POC ABG pO2 Sodium Potassium Chloride Carbon Dioxide BUN Creatinine Glucose POC Glucose 159 H 171 H Lactic Acid Calcium Total Creatine Kinase CK-MB (CK-2) CK-MB (CK-2) Rel Index Troponin T C-Reactive Protein Serum Total Protein Albumin Syqmu-5-Olmcstrgq Gamma Globulins PEP Interpretation Triglycerides LDL Cholesterol Direct HDL Cholesterol Urine WBC (Auto) Urine Creatinine Complement C3 Complement C4 08/02/17 08/03/17 08/03/17 22:30 00:05 03:29 WBC Hgb MCHC Plt Count Lymph % (Auto) [place] % (Auto) [place] # Seg Neutrophils % Lymphocytes % (Manual) Seg Neutrophils # Seg Neutrophils # Man Lymphocytes # (Manual) Monocytes # (Manual) PT INR APTT POC ABG pH POC ABG pCO2 POC ABG pO2 Sodium 148 H Potassium Chloride 109.1 H Carbon Dioxide BUN 32 H Creatinine Glucose 179 H POC Glucose 179 H 199 H Lactic Acid Calcium 6.9 L Total Creatine Kinase CK-MB (CK-2) CK-MB (CK-2) Rel Index Troponin T C-Reactive Protein Serum Total Protein Albumin Dwres-1-Umqkluvxq Gamma Globulins PEP Interpretation Triglycerides LDL Cholesterol Direct HDL Cholesterol Urine WBC (Auto) Urine Creatinine Complement C3 Complement C4 08/03/17 08/03/17 08/03/17 03:29 05:40 06:01 WBC 19.9 H Hgb MCHC Plt Count 130 L Lymph % (Auto) 7.0 L [place] % (Auto) 11.1 H [place] # 2.2 H Seg Neutrophils % 81.4 H Lymphocytes % (Manual) Seg Neutrophils # 16.2 H Seg Neutrophils # Man Lymphocytes # (Manual) Monocytes # (Manual) PT INR APTT POC ABG pH 7.468 H POC ABG pCO2 POC ABG pO2 70 L Sodium Potassium Chloride Carbon Dioxide BUN Creatinine Glucose POC Glucose 179 H Lactic Acid Calcium Total Creatine Kinase CK-MB (CK-2) CK-MB (CK-2) Rel Index Troponin T C-Reactive Protein Serum Total Protein Albumin Bkvpj-2-Hhdicpaow Gamma Globulins PEP Interpretation Triglycerides LDL Cholesterol Direct HDL Cholesterol Urine WBC (Auto) Urine Creatinine Complement C3 Complement C4 Chest x-ray: report reviewed, image reviewed (no change in LLL infiltrate)
[2017-08-03 20:40] LABS: Myeloperoxidase Antibody <1.0 AI (<1.0)
[2017-08-03] MEDS: LOVENOX SUB-Q SCH (22:01)
[2017-08-04] MEDS: ZOSYN/NS 3.375GM/50ML 3.375 GM/50 ML BAG IV SCH ×4 (00:21→17:56)
[2017-08-04 06:11] LABS: Basophils % (Auto) 0.2 % (0.0-1.8); Eosinophils # (Auto) 0.1 K/mm3 (0.0-0.4); Eosinophils % (Auto) 0.6 % (0.0-4.3); Hemoglobin 11.7 gm/dl (11.8-15.2); Lymphocytes # (Auto) 0.8 K/mm3 (1.2-5.4); Mean Corpuscular HGB Conc 32 % (32-34); Mean Corpuscular Hemoglobin 27 pg (28-32); Mean Corpuscular Volume 87 fl (84-94); Monocytes # (Auto) 1.6 K/mm3 (0.0-0.8); Monocytes % (Auto) 9.5 % (0.0-7.3); Platelet Count 160 K/mm3 (140-440); Red Blood Count 4.27 M/mm3 (3.65-5.03); Red Cell Distribution Width 14.2 % (13.2-15.2)
[2017-08-04] MEDS: NOVOLOG SUB-Q SCH ×2 (06:13→22:00)
[2017-08-04 06:26] LABS: Calcium 7.6 mg/dL (8.4-10.2)
[2017-08-04] MEDS: CORDARONE PO SCH ×2 (09:06→21:36)
[2017-08-04] MEDS: LASIX IV SCH (09:06)
[2017-08-04] MEDS: ZESTRIL PO SCH (09:06)
[2017-08-04] MEDS: PEPCID IV SCH ×2 (09:06→21:36)
[2017-08-04] MEDS: COREG PO SCH ×2 (09:07→21:35)
[2017-08-04] MEDS: BABY ASPIRIN FEEDTUBE SCH (09:07)
--- NOTE | 2017-08-04 09:07 | Progress Note ---
Assessment and Plan - Patient Problems (1) Ventricular fibrillation Current Visit: Yes Status: Acute (2) CAD (coronary artery disease) Current Visit: Yes Status: Acute (3) Cardiomyopathy Current Visit: Yes Status: Acute Subjective Date of service: 08/04/17 Principal diagnosis: cardiac arrest at home. Intubated and unresponcsive Interval history: Ventricular fibrillation 40 minutes of ACLS before ROSC Apparently, patient declined ICD 30 days ago Anoxic encephalopathy Ischemic cardiomyopathy, LVEF 15-20% CAD s/p CABG 2006 at [place] [facility] to LAD; COREY to RI; SVG to PLOM; SVG to RV branch and PDA branch Non-specific troponin Not consistent with ACS Acute renal failure LLL pneumonia Recommendations: Supportive ICU care Neuro assessment and follow-up Any further cardiac intervention will solely depend on neuro recovery Discussed in details with family at the bedside Awaiting EEG Objective Vital Signs Temp Pulse Resp BP Pulse Ox 08/04/17 08:00 98.2 F 56 L 22 160/88 94 08/04/17 07:57 56 L 145/84 95 08/04/17 07:47 94 08/04/17 07:30 56 L 16 145/84 95 08/04/17 07:00 54 L 11 L 145/84 92 08/04/17 06:30 54 L 13 153/88 94 08/04/17 06:00 56 L 15 153/88 91 08/04/17 05:30 57 L 13 159/92 94 08/04/17 05:00 58 L 12 159/92 93 08/04/17 04:40 53 L 133/76 96 08/04/17 04:30 53 L 17 152/82 95 08/04/17 04:00 56 L 15 152/82 94 08/04/17 03:44 98.8 F 08/04/17 03:30 55 L 16 152/82 93 08/04/17 03:00 56 L 16 152/82 91 08/04/17 02:30 56 L 16 155/84 94 08/04/17 02:00 65 17 145/86 93 08/04/17 01:30 55 L 16 155/84 94 08/04/17 01:00 57 L 16 155/84 91 08/04/17 00:30 57 L 16 162/85 93 08/04/17 00:04 57 L 16 162/85 93 08/04/17 00:00 57 L 19 162/85 96 08/03/17 23:50 70 97 08/03/17 23:30 59 L 17 155/78 94 08/03/17 23:27 99.6 F 08/03/17 23:00 73 25 H 157/82 98 08/03/17 22:30 57 L 13 157/82 96 08/03/17 22:00 58 L 17 168/84 93 08/03/17 21:59 58 L 157/82 08/03/17 21:30 73 16 168/84 96 08/03/17 21:00 72 22 168/84 96 08/03/17 20:30 62 16 168/84 96 08/03/17 20:00 64 18 168/84 93 08/03/17 19:51 100.7 F H 08/03/17 19:33 59 L 154/80 96 08/03/17 19:30 60 21 154/80 94 08/03/17 19:00 58 L 16 154/80 90 08/03/17 18:30 60 16 155/83 94 08/03/17 18:00 59 L 16 155/83 91 08/03/17 17:30 58 L 16 154/84 94 08/03/17 17:01 58 L 16 94 08/03/17 16:30 58 L 16 160/85 94 08/03/17 16:00 100.1 F H 64 17 160/85 94 08/03/17 15:57 58 L 151/79 94 08/03/17 15:30 57 L 16 151/79 94 08/03/17 15:00 57 L 16 151/79 91 08/03/17 14:30 59 L 16 150/81 95 08/03/17 14:00 60 16 151/83 93 08/03/17 13:30 61 16 150/81 95 08/03/17 13:00 61 16 150/81 92 08/03/17 12:30 61 17 153/81 94 08/03/17 12:00 100.2 F H 62 17 153/81 91 08/03/17 11:38 60 149/83 92 08/03/17 11:30 62 16 149/83 95 08/03/17 11:00 60 16 149/83 92 08/03/17 10:30 59 L 16 141/77 94 08/03/17 10:00 60 16 141/77 92 08/03/17 09:30 62 16 161/88 94 08/03/17 09:20 62 154/83 08/03/17 09:19 62 154/83 - Physical Examination General: Other (intubated on the vent) Neck: Positive: neck supple, trachea midline. Negative: JVD/HJR, Masses Cardiac: Positive: Reg Rate and Rhythm Lungs: Positive: clear to auscultation Neuro: Positive: Other (unresponsive on the vent) Abdomen: Positive: Soft Skin: Positive: Clear Extremities: Absent: edema - Labs and Meds CBC 08/04/17 Range/Units 05:44 WBC 16.8 H (4.5-11.0) K/mm3 RBC 4.27 (3.65-5.03) M/mm3 Hgb 11.7 L (11.8-15.2) gm/dl Hct 37.0 (35.5-45.6) % Plt Count 160 (140-440) K/mm3 Lymph # 0.8 L (1.2-5.4) K/mm3 King # 1.6 H (0.0-0.8) K/mm3 Eos # 0.1 (0.0-0.4) K/mm3 Baso # 0.0 (0.0-0.1) K/mm3 Comprehensive Metabolic Panel 08/04/17 Range/Units 05:44 Sodium 148 H (137-145) mmol/L Potassium 3.6 (3.6-5.0) mmol/L Chloride 108.1 H (98-107) mmol/L Carbon Dioxide 28 (22-30) mmol/L BUN 31 H (9-20) mg/dL Creatinine 1.2 (0.8-1.5) mg/dL Glucose 181 H (75-100) mg/dL Calcium 7.6 L (8.4-10.2) mg/dL - Imaging and Cardiology EKG: image reviewed
--- NOTE | 2017-08-04 09:19 | Progress Note ---
Assessment and Plan Impression * Nonoliguric acute kidney injury due to ischemic ATN s/p cardiac arrest --Hepatitis B and C both are negative --Abd/Pelvis CT - bilateral kidney cysts as well as stones * Status post OOH cardiac arrest- ventricular fibrillation * Ischemic cardiomyopathy, LVEF 15-20% * Coronary artery disease s/p CABG 2005 * Hypertension * Metabolic acidosis * Hypernatremia * Microscopic hematuria/proteinuria * MRSA+sputum Recommendations * No indication for renal replacement therapy. * Continue free water to the NG tube. * Hold diuresis - Na elevated, FiO2 25% * Await pending vasculitis workup. * Abx per primary team * Monitor fluid status and electrolytes closely. * Avoid nephrotoxins Subjective Date of service: 08/04/17 Principal diagnosis: cardiac arrest at home. Intubated and unresponcsive Interval history: No acute events overnight Objective - Vital Signs Vital signs: Vital Signs - 12hr 08/03/17 08/03/17 08/03/17 21:30 21:59 22:00 Temperature Pulse Rate 73 58 L 58 L Respiratory 16 17 Rate Blood Pressure 168/84 157/82 168/84 O2 Sat by Pulse 96 93 Oximetry 08/03/17 08/03/17 08/03/17 22:30 23:00 23:27 Temperature 99.6 F Pulse Rate 57 L 73 Respiratory 13 25 H Rate Blood Pressure 157/82 157/82 O2 Sat by Pulse 96 98 Oximetry 08/03/17 08/03/17 08/04/17 23:30 23:50 00:00 Temperature Pulse Rate 59 L 70 57 L Respiratory 17 19 Rate Blood Pressure 155/78 162/85 O2 Sat by Pulse 94 97 96 Oximetry 08/04/17 08/04/17 08/04/17 00:04 00:30 01:00 Temperature Pulse Rate 57 L 57 L 57 L Respiratory 16 16 16 Rate Blood Pressure 162/85 162/85 155/84 O2 Sat by Pulse 93 93 91 Oximetry 08/04/17 08/04/17 08/04/17 01:30 02:00 02:30 Temperature Pulse Rate 55 L 65 56 L Respiratory 16 17 16 Rate Blood Pressure 155/84 145/86 155/84 O2 Sat by Pulse 94 93 94 Oximetry 08/04/17 08/04/17 08/04/17 03:00 03:30 03:44 Temperature 98.8 F Pulse Rate 56 L 55 L Respiratory 16 16 Rate Blood Pressure 152/82 152/82 O2 Sat by Pulse 91 93 Oximetry 08/04/17 08/04/17 08/04/17 04:00 04:30 04:40 Temperature Pulse Rate 56 L 53 L 53 L Respiratory 15 17 Rate Blood Pressure 152/82 152/82 133/76 O2 Sat by Pulse 94 95 96 Oximetry 08/04/17 08/04/17 08/04/17 05:00 05:30 06:00 Temperature Pulse Rate 58 L 57 L 56 L Respiratory 12 13 15 Rate Blood Pressure 159/92 159/92 153/88 O2 Sat by Pulse 93 94 91 Oximetry 08/04/17 08/04/17 08/04/17 06:30 07:00 07:30 Temperature Pulse Rate 54 L 54 L 56 L Respiratory 13 11 L 16 Rate Blood Pressure 153/88 145/84 145/84 O2 Sat by Pulse 94 92 95 Oximetry 08/04/17 08/04/17 08/04/17 07:47 07:57 08:00 Temperature 98.2 F Pulse Rate 56 L 56 L Respiratory 22 Rate Blood Pressure 145/84 160/88 O2 Sat by Pulse 94 95 94 Oximetry 08/04/17 08/04/17 08/04/17 08:30 08:46 09:00 Temperature Pulse Rate 56 L 57 L 57 L Respiratory 22 21 21 Rate Blood Pressure 160/88 160/88 164/79 O2 Sat by Pulse 94 95 92 Oximetry 08/04/17 08/04/17 09:06 09:07 Temperature Pulse Rate 67 67 Respiratory Rate Blood Pressure 164/79 164/79 O2 Sat by Pulse Oximetry - General Appearance General appearance: intubated EENT: ATNC, other (ETT in place) Neck: no JVD Respiratory: Present: Other (coarse breath sounds) Cardiology: regular, S1S2 Gastrointestinal: normal, no tenderness, no distended Integumentary: no rash, warm and dry Musculoskeletal: other (trace edema) Psychiatric: cooperative - Lab 08/04/17 05:44 08/04/17 05:44 Most recent lab results Calcium 7.6 mg/dL (8.4-10.2) L 08/04/17 05:44 Urine Creatinine 58.4 mg/dL (0.1-20.0) H 07/28/17 16:20 Urine Sodium 94 mmol/L 07/28/17 16:20
--- NOTE | 2017-08-04 10:42 | Progress Note ---
Assessment and Plan Assessment: 1) S/P prolonged cardiac arrest with presumed sepsis with initial septic vs cardiogenic shock: still fever and leukocytosis better. Etiology ? pneumonia ? central fever 2) Presumed aspiration versus CAP pneumonia: -CT chest showed patchy airspace disease with left sided trace pleural effusion. 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 Plan: -add vanco -continue zosyn - day 5 of 7 -monitor fever and leukocytosis Prognosis guarded I will be off until Aug 10, but available over the phone, please call me for questions. Thank you Dr Blanchard for your consultation, will follow up with you. Kathie Magdaleno MD Infectious Diseases Specialist [facility], [place], [facility] ([facility]) M [phone] O [phone] Subjective Date of service: 08/04/17 Principal diagnosis: cardiac arrest at home. Intubated and unresponcsive Interval history: Remains on the vent intubated, fio2 25% p5, had a tmax 100.7 Current Antimicrobials: Zosyn 07/31 Previous Antimicrobials: Vancomycin 07/31-08/02 Microbiology: Blood cultures: 07/27 ngtd Respiratory cultures: 07/27 normal resp niko Urine cultures: 07/28 neg Influenza: neg Objective - Exam Narrative Exam: General appearance: sedated on the vent Eyes: anicteric sclerae, moist conjunctivae; no lid-lag; PERRLA HENT: Atraumatic; oropharynx +ETT + NGT Neck: Trachea midline; supple, no thyromegaly or lymphadenopathy Lungs: marcin rhonchi CV: RRR Abdomen: Soft, non-tender Extremities: No peripheral edema or extremity lymphadenopathy Skin: Normal temperature, turgor and texture; no rash, ulcers or subcutaneous nodules Psych: sedated Neuro: sedated Lines: femoral line - Constitutional Vitals: Vital Signs Temp Pulse Resp BP Pulse Ox 98.2 F 56 L 20 149/79 90 08/04/17 08:00 08/04/17 10:00 08/04/17 10:00 08/04/17 10:00 08/04/17 10:00 Temperature -Last 24 Hours Temperature 98.2 F Temperature 98.8 F Temperature 99.6 F Temperature 100.7 F Temperature 100.1 F Temperature 100.2 F - Labs CBC & Chem 7: 08/04/17 05:44 08/04/17 05:44 Labs: Abnormal lab results 08/03/17 08/03/17 08/04/17 Range/Units 11:43 17:34 00:02 WBC (4.5-11.0) K/mm3 Hgb (11.8-15.2) gm/dl MCH (28-32) pg Lymph % (Auto) (13.4-35.0) % Benzie % (Auto) (0.0-7.3) % Lymph # (1.2-5.4) K/mm3 [place]zie # (0.0-0.8) K/mm3 Seg Neutrophils % (40.0-70.0) % Seg Neutrophils # (1.8-7.7) K/mm3 Sodium (137-145) mmol/L Chloride (98-107) mmol/L BUN (9-20) mg/dL Glucose (75-100) mg/dL POC Glucose 166 H 193 H 191 H (70-105) Calcium (8.4-10.2) mg/dL 08/04/17 08/04/17 08/04/17 Range/Units 05:18 05:44 05:44 WBC 16.8 H (4.5-11.0) K/mm3 Hgb 11.7 L (11.8-15.2) gm/dl MCH 27 L (28-32) pg Lymph % (Auto) 5.0 L (13.4-35.0) % Benzie % (Auto) 9.5 H (0.0-7.3) % Lymph # 0.8 L (1.2-5.4) K/mm3 Benzie # 1.6 H (0.0-0.8) K/mm3 Seg Neutrophils % 84.7 H (40.0-70.0) % Seg Neutrophils # 14.2 H (1.8-7.7) K/mm3 Sodium 148 H (137-145) mmol/L Chloride 108.1 H (98-107) mmol/L BUN 31 H (9-20) mg/dL Glucose 181 H (75-100) mg/dL POC Glucose 173 H (70-105) Calcium 7.6 L (8.4-10.2) mg/dL
[2017-08-04] MEDS ORDERED: D5W 1,000 ML IV SCH (13:00)
[2017-08-04] MEDS ORDERED: VANCOMYCIN VIAL 1,000 MG in NACL 0.9% 100 ML IV SCH (13:00)
[2017-08-04] MEDS ORDERED: VANCOMYCIN PHARMACY TO DOSE IV SCH (13:00)
[2017-08-04] MEDS: VANCOMYCIN 1,250 MG in NACL 0.9% 250ML 250 ML IV SCH (13:46)
--- NOTE | 2017-08-04 15:00 | Progress Note ---
Assessment and Plan Assessment and plan: 71 year old man with history of CAD, CHF was brought to the emerghency room after he had a cardiac arrest at home. He had a cough productive of yellow phlegm, fever 3 days. EMS was called, CPR was continued for another 40 minutes prior to arrival in the emergency room, he had a V. fib or V. tach rhythm for which he was shocked per EMS. CPR was continued in the emergency room, he was hypotensive and placed on levothyroid and vasopressin. Remains unresponsive. Neurologist evaluating EEG pending - Cardio-resp arrest at home. All interdisciplinary notes reviewed. Remains unresponsive. Intubated and vent supported. Opening eyes only, -comatose Persistent vegetative state -need to have family meeting and discuss goals of care. -would recommend comfort care and hospice placement vs trache and PEG then NH placement - Shock. Cardiogenic +/- septic shock. V fib sp shock off vasopressor, BP is stable. -Apparently, patient declined ICD 30 days ago Acute hypoxic Respiratory failure on MV >96 hours -continue vent Ischemic cardiomyopathy, LVEF 15-20% CAD s/p CABG 2005 at [place] to LAD; COREY to RI; SVG to PLOM; SVG to RV branch and PDA branch Non-specific troponin Not consistent with ACS Acute renal failure - Acute kidney Injury due to acute tubular necrosis. Improving, Creatinine improved to nl. BUN slightly elevated Nephrology following. - CAD s/p CABG. 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 Anoxic encephalopathy. EEG for evolution of cerebral function. Neurologist following. Discussed with Dr. Brown - Hypernatremia: Increase free water by G tube - Leukocytosis: From presumed aspiration pneumonia versus community acquired pneumonia. Blood cultures no growth to date. Continue Zosyn/ vanco ID following -Pneumonia/Septic shock: left lobar, likely aspiration Blood culture so far are neg. continue abx -influenza neg, legionella neg, Strep pneumoniae neg -crp=4 -repeat resp cx 08/01 +MRSA (likely a colonizer) - Seizure: Post arrest. Neurologist on board. - Hyperglycemia: Monitor blood sugars with sliding scale coverage for now - Full code status Discussed at length with patient's regarding patient's status. Discussed with neurologreina Brown - Prophylaxis with Lovenox, GI with Pepcid. The high probability of a clinically significant, sudden or life threatening deterioration of the [cv, neuro, renal, pulmonary] system(s) required my full and direct attention, intervention and personal management. The aggregate critical care time was [66] minutes. This time is in addition to time spent performing reported procedures but includes the following: [] Data Review and interpretation [] Patient assessment and monitoring of vital signs [] Documentation [] Medication orders and management History Interval history: intubated, comatose no fever, no vomiting, no agitation, no distress but comatose Hospitalist Physical - Constitutional Vitals: Temp Pulse Resp BP Pulse Ox 97.5 F L 57 L 23 140/81 95 08/04/17 12:00 08/04/17 14:30 08/04/17 14:30 08/04/17 14:30 08/04/17 14:30 General appearance: Present: no acute distress, well-nourished (intubated and vent supported), other - EENT Eyes: Present: PERRL ENT: dentition normal - Neck Neck: Present: supple - Respiratory Respiratory: bilateral: other (ventialted breath sounds) - Cardiovascular Rhythm: regular Heart Sounds: Present: S1 & S2 - Extremities Extremities: no ischemia Peripheral Pulses: within normal limits - Abdominal General gastrointestinal: soft, non-tender - Integumentary Integumentary: Present: clear, warm, dry - Psychiatric Psychiatric: other (comatose) - Neurologic Neurologic: other (comatose) Results - Labs CBC & Chem 7: 08/05/17 07:34 08/05/17 07:34 Labs: Laboratory Last Values WBC 16.8 K/mm3 (4.5-11.0) H 08/04/17 05:44 RBC 4.27 M/mm3 (3.65-5.03) 08/04/17 05:44 Hgb 11.7 gm/dl (11.8-15.2) L 08/04/17 05:44 Hct 37.0 % (35.5-45.6) 08/04/17 05:44 MCV 87 fl (84-94) 08/04/17 05:44 MCH 27 pg (28-32) L 08/04/17 05:44 MCHC 32 % (32-34) 08/04/17 05:44 RDW 14.2 % (13.2-15.2) 08/04/17 05:44 Plt Count 160 K/mm3 (140-440) 08/04/17 05:44 Lymph % (Auto) 5.0 % (13.4-35.0) L 08/04/17 05:44 [place] % (Auto) 9.5 % (0.0-7.3) H 08/04/17 05:44 Eos % (Auto) 0.6 % (0.0-4.3) 08/04/17 05:44 Baso % (Auto) 0.2 % (0.0-1.8) 08/04/17 05:44 Lymph # 0.8 K/mm3 (1.2-5.4) L 08/04/17 05:44 [place] # 1.6 K/mm3 (0.0-0.8) H 08/04/17 05:44 Eos # 0.1 K/mm3 (0.0-0.4) 08/04/17 05:44 Baso # 0.0 K/mm3 (0.0-0.1) 08/04/17 05:44 Add Manual Diff Complete 07/27/17 18:26 Total Counted 100 07/27/17 18:26 Seg Neutrophils % 84.7 % (40.0-70.0) H 08/04/17 05:44 Seg Neuts % (Manual) 57.0 % (40.0-70.0) 07/27/17 18:26 Band Neutrophils % 0 % 07/27/17 18:26 Lymphocytes % (Manual) 36.0 % (13.4-35.0) H 07/27/17 18:26 Reactive Lymphs % (Man) 0 % 07/27/17 18:26 Monocytes % (Manual) 7.0 % (0.0-7.3) 07/27/17 18:26 Eosinophils % (Manual) 0 % (0.0-4.3) 07/27/17 18:26 Basophils % (Manual) 0 % (0.0-1.8) 07/27/17 18:26 Metamyelocytes % 0 % 07/27/17 18:26 Myelocytes % 0 % 07/27/17 18:26 Promyelocytes % 0 % 07/27/17 18:26 Blast Cells % 0 % 07/27/17 18:26 Nucleated RBC % Not Reportable 07/27/17 18:26 Seg Neutrophils # 14.2 K/mm3 (1.8-7.7) H 08/04/17 05:44 Seg Neutrophils # Man 8.9 K/mm3 (1.8-7.7) H 07/27/17 18:26 Band Neutrophils # 0.0 K/mm3 07/27/17 18:26 Lymphocytes # (Manual) 5.6 K/mm3 (1.2-5.4) H 07/27/17 18:26 Abs React Lymphs (Man) 0.0 K/mm3 07/27/17 18:26 Monocytes # (Manual) 1.1 K/mm3 (0.0-0.8) H 07/27/17 18:26 Eosinophils # (Manual) 0.0 K/mm3 (0.0-0.4) 07/27/17 18:26 Basophils # (Manual) 0.0 K/mm3 (0.0-0.1) 07/27/17 18:26 Metamyelocytes # 0.0 K/mm3 07/27/17 18:26 Myelocytes # 0.0 K/mm3 07/27/17 18:26 Promyelocytes # 0.0 K/mm3 07/27/17 18:26 Blast Cells # 0.0 K/mm3 07/27/17 18:26 WBC Morphology Not Reportable 07/27/17 18:26 Hypersegmented Neuts Not Reportable 07/27/17 18:26 Hyposegmented Neuts Not Reportable 07/27/17 18:26 Hypogranular Neuts Not Reportable 07/27/17 18:26 Smudge Cells Not Reportable 07/27/17 18:26 Toxic Granulation Not Reportable 07/27/17 18:26 Toxic Vacuolation Not Reportable 07/27/17 18:26 Dohle Bodies Not Reportable 07/27/17 18:26 Pelger-Huet Anomaly Not Reportable 07/27/17 18:26 [place] Rods Not Reportable 07/27/17 18:26 Platelet Estimate Consistent w auto 07/27/17 18:26 Clumped Platelets Not Reportable 07/27/17 18:26 Plt Clumps, EDTA Not Reportable 07/27/17 18:26 Large Platelets Not Reportable 07/27/17 18:26 Giant Platelets Not Reportable 07/27/17 18:26 Platelet Satelliting Not Reportable 07/27/17 18:26 Plt Morphology Comment Not Reportable 07/27/17 18:26 RBC Morphology Not Reportable 07/27/17 18:26 Dimorphic RBCs Not Reportable 07/27/17 18:26 Polychromasia Not Reportable 07/27/17 18:26 Hypochromasia Not Reportable 07/27/17 18:26 Poikilocytosis Not Reportable 07/27/17 18:26 Anisocytosis Rare 07/27/17 18:26 Microcytosis Not Reportable 07/27/17 18:26 Macrocytosis Not Reportable 07/27/17 18:26 Spherocytes Not Reportable 07/27/17 18:26 Pappenheimer Bodies Not Reportable 07/27/17 18:26 Sickle Cells Not Reportable 07/27/17 18:26 Target Cells Not Reportable 07/27/17 18:26 Tear Drop Cells Not Reportable 07/27/17 18:26 Ovalocytes Not Reportable 07/27/17 18:26 Helmet Cells Not Reportable 07/27/17 18:26 [place] Bodies Not Reportable 07/27/17 18:26 [place] Rings Not Reportable 07/27/17 18:26 Moiz Cells Not Reportable 07/27/17 18:26 Bite Cells Not Reportable 07/27/17 18:26 Crenated Cell Not Reportable 07/27/17 18:26 Elliptocytes Not Reportable 07/27/17 18:26 Acanthocytes (Spur) Not Reportable 07/27/17 18:26 Rouleaux Not Reportable 07/27/17 18:26 Hemoglobin C Crystals Not Reportable 07/27/17 18:26 Schistocytes Not Reportable 07/27/17 18:26 Malaria parasites Not Reportable 07/27/17 18:26 Mina Bodies Not Reportable 07/27/17 18:26 Hem Pathologist Commnt No 07/27/17 18:26 PT 15.6 Sec. (12.2-14.9) H 07/27/17 18:26 INR 1.18 (0.87-1.13) H 07/27/17 18:26 APTT 38.5 Sec. (24.2-36.6) H 07/27/17 18:26 POC ABG pH 7.490 (7.35-7.45) H 08/04/17 10:58 POC ABG pCO2 39.0 (35-45) 08/04/17 10:58 POC ABG pO2 71 (80-105) L 08/04/17 10:58 POC ABG HCO3 29.7 08/04/17 10:58 POC ABG Total CO2 31 08/04/17 10:58 POC ABG O2 Sat 95 08/04/17 10:58 POC ABG Base Excess 6 08/04/17 10:58 FiO2 25 % 08/04/17 10:58 Sodium 148 mmol/L (137-145) H 08/04/17 05:44 Potassium 3.6 mmol/L (3.6-5.0) 08/04/17 05:44 Chloride 108.1 mmol/L (98-107) H 08/04/17 05:44 Carbon Dioxide 28 mmol/L (22-30) 08/04/17 05:44 Anion Gap 16 mmol/L 08/04/17 05:44 BUN 31 mg/dL (9-20) H 08/04/17 05:44 Creatinine 1.2 mg/dL (0.8-1.5) 08/04/17 05:44 Estimated GFR 60 ml/min 08/04/17 05:44 BUN/Creatinine Ratio 26 % 08/04/17 05:44 Glucose 181 mg/dL (75-100) H 08/04/17 05:44 POC Glucose 173 (70-105) H 08/04/17 05:18 Lactic Acid 1.80 mmol/L (0.7-2.0) 08/03/17 03:29 Calcium 7.6 mg/dL (8.4-10.2) L 08/04/17 05:44 Total Creatine Kinase 434 units/L (55-170) H 07/28/17 05:44 CK-MB (CK-2) 10.8 ng/mL (0.0-4.0) H 07/28/17 05:44 CK-MB (CK-2) Rel Index 2.4 (0-4) 07/28/17 05:44 Troponin T 0.521 ng/mL (0.00-0.029) H* D 07/28/17 05:44 C-Reactive Protein 4.00 mg/dL (0.00-1.30) H 08/01/17 19:42 Serum Total Protein 4.9 g/dL (6.1-8.1) L 07/29/17 Unknown Albumin 2.9 g/dL (3.8-4.8) L 07/29/17 Unknown Cjgtn-3-Nktkoxduq 0.4 g/dL (0.2-0.3) H 07/29/17 Unknown Dmjko-0-Notliwhkn 0.6 g/dL (0.5-0.9) 07/29/17 Unknown Beta Globulins 0.2 g/dL (0.2-0.5) 07/29/17 Unknown Gamma Globulins 0.5 g/dL (0.8-1.7) L 07/29/17 Unknown Abnorm Protein Band 1 see below 07/29/17 Unknown PEP Interpretation see below H 07/29/17 Unknown Triglycerides 190 mg/dL (2-149) H 07/27/17 18:26 Cholesterol 93 mg/dL (50-199) 07/27/17 18:26 LDL Cholesterol Direct 34 mg/dL (50-130) L 07/27/17 18:26 HDL Cholesterol 21 mg/dL (40-59) L 07/27/17 18:26 Cholesterol/HDL Ratio 4.42 % 07/27/17 18:26 Urine Color Yellow (Yellow) 08/01/17 19:45 Urine Turbidity Clear (Clear) 08/01/17 19:45 Urine pH 6.0 (5.0-7.0) 08/01/17 19:45 Ur Specific [place] 1.018 (1.003-1.030) 08/01/17 19:45 Urine Protein 30 mg/dl mg/dL (Negative) 08/01/17 19:45 Urine Glucose (UA) 50 mg/dL (Negative) 08/01/17 19:45 Urine Ketones Neg mg/dL (Negative) 08/01/17 19:45 Urine Blood Mod (Negative) 08/01/17 19:45 Urine Nitrite Neg (Negative) 08/01/17 19:45 Ur Reducing Substances Not Reportable 07/27/17 22:46 Urine Bilirubin Neg (Negative) 08/01/17 19:45 Urine Ictotest Not Reportable 07/27/17 22:46 Urine Urobilinogen < 2.0 mg/dL (<2.0) 08/01/17 19:45 Ur Leukocyte Esterase Neg (Negative) 08/01/17 19:45 Urine WBC (Auto) 1.0 /HPF (0.0-6.0) 08/01/17 19:45 Urine RBC (Auto) 2.0 /HPF (0.0-6.0) 08/01/17 19:45 U Epithel Cells (Auto) < 1.0 /HPF (0-13.0) 08/01/17 19:45 Urine Bacteria (Auto) 1+ /HPF (Negative) 07/27/17 22:46 Amorphous Crystals Few 07/28/17 16:20 Urine Mucus Few /HPF 08/01/17 19:45 Urine Yeast (Budding) Few /HPF 07/28/17 16:20 Urine Eosinophils None seen (None Seen) 07/28/17 16:20 Urine Creatinine 58.4 mg/dL (0.1-20.0) H 07/28/17 16:20 Urine Sodium 94 mmol/L 07/28/17 16:20 Fraction Sodium Excret 2.6 07/28/17 16:20 Vancomycin Trough 7.4 ug/mL (5.0-20.0) 08/03/17 08:52 Urine Opiates Screen Presumptive negative 07/27/17 22:46 Urine Methadone Screen Presumptive negative 07/27/17 22:46 Ur Barbiturates Screen Presumptive negative 07/27/17 22:46 Ur Phencyclidine Scrn Presumptive negative 07/27/17 22:46 Ur Amphetamines Screen Presumptive negative 07/27/17 22:46 U Benzodiazepines Scrn Presumptive negative 07/27/17 22:46 Urine Cocaine Screen Presumptive negative 07/27/17 22:46 U Marijuana (THC) Screen Presumptive negative 07/27/17 22:46 Drugs of Abuse Note Disclamer 07/27/17 22:46 Proteinase 3 (PR3) Ab <1.0 AI (<1.0) 07/28/17 16:00 Myeloperoxidase Ab <1.0 AI (<1.0) 07/28/17 16:00 Double Strand DNA Ab <1 IU/mL (<=4) 12/21/17 16:00 Complement C3 67 mg/dL (90-180) L 07/28/17 16:00 Complement C4 14 mg/dL (16-47) L 07/28/17 16:00 Hepatitis A IgM Ab Non-reactive (NonReactive) 07/28/17 16:00 Hep Bs Antigen Non-reactive (Negative) 07/28/17 16:00 Hep B Core IgM Ab Non-reactive (NonReactive) 07/28/17 16:00 Hepatitis C Antibody Non-reactive (NonReactive) 07/28/17 16:00 Urine Legionella Ag Not detected (Not Detected) 08/01/17 19:45 Miscellaneous Test Flexitest 1 08/01/17 19:45 Blood Type A POSITIVE 07/27/17 18:24 Antibody Screen Negative 07/27/17 18:24
--- NOTE | 2017-08-04 15:12 | Progress Note ---
Assessment and Plan Imp: 1. S/p CP arrest, ? primary cardiac event (e.g. arrhythmia) in setting of ICMP 2. Anoxic enceph 3. Acute respiratory failure, hypoxia 4. KATELYN 5. Hypernatremia 6. ICMP 7. 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 ? LLL aspiration pneumonia/sepsis Rec: 1. ABX per ID; fever may be central; rare MRSA could be contamination/ colonization but Vanco resumed for now 2. Removed groin line 3. Holding all sedation 4. Cont. TFs; free water per FT; hold Lasix; gentle D5W to correct sodium 5. Awaiting neurology recs/EEG, etc. 6. GI PPx 7. SCDs; monitor platelets 8. Tolerating PSV but mentation precludes extubation; this is vent d#8; likely will need trach/PEG next week and seems to understand this 9. Guarded prognosis Plan of care reviewed with patient's , she understand/agree CCt 31 minutes Subjective Date of service: 08/04/17 Principal diagnosis: cardiac arrest at home. Intubated and unresponcsive Interval history: No events. On vent. Unresponsive although eyes open. Off all pressors. Active Medications Acetaminophen (Tylenol) 650 mg PO Q6HR PRN PRN Reason: Fever Last Admin: 08/01/17 13:51 Dose: 650 mg Albuterol (Proventil) 2.5 mg IH Q3HRT PRN PRN Reason: Shortness Of Breath Amiodarone HCl (Cordarone) 200 mg PO BID [facility] Last Admin: 08/04/17 09:06 Dose: 200 mg Lipase/Protease/Amylase (Pancreaze Dr 10,500 Unit) 1 each FEEDTUBE PRN PRN PRN Reason: For Clogged Feeding Tube Last Admin: 07/31/17 10:07 Dose: 1 each Aspirin (Baby Aspirin) 81 mg FEEDTUBE QDAY [facility] Last Admin: 08/04/17 09:07 Dose: 81 mg Carvedilol (Coreg) 3.125 mg PO BID [facility] Last Admin: 08/04/17 09:07 Dose: 3.125 mg Enoxaparin Sodium (Lovenox) 40 mg SUB-Q QDAY@2200 [facility] Last Admin: 08/03/17 22:01 Dose: 40 mg Famotidine (Pepcid) 20 mg IV BID [facility] Last Admin: 08/04/17 09:06 Dose: 20 mg Hydrophilic Ointment (Vaseline Lip Therapy) 1 applic TP Q2HR PRN PRN Reason: Dry Lips Vasopressin 20 unit/ Sodium (Chloride) 101 mls @ 9.09 mls/hr IV TITR DANIEL; 0.03 UNITS/MIN PRN Reason: Protocol Last Titration: 07/30/17 09:21 Dose: 0 units/min, 0 mls/hr Norepinephrine (Levophed Drip 4 Mg/Ns 250 Ml) 4 mg in 250 mls @ 7.5 mls/hr IV TITR DANIEL; 2 MCG/MIN PRN Reason: Protocol Piperacillin Sod/Tazobactam Sod (Zosyn/Ns 3.375gm/50ml) 3.375 gm in 50 mls @ 100 mls/hr IV Q6HR DANIEL PRN Reason: Protocol Last Admin: 08/04/17 12:43 Dose: 100 mls/hr Dextrose (D5w) 1,000 mls @ 50 mls/hr IV DIRECT DANEIL Stop: 08/05/17 08:59 Last Admin: 08/04/17 13:40 Dose: 50 mls/hr Vancomycin HCl 1,250 mg/ (Sodium Chloride) 262.5 mls @ 166.667 mls/hr IV Q24H [facility] Last Admin: 08/04/17 13:46 Dose: 166.667 mls/hr Insulin Aspart (Novolog) 0 units SUB-Q QHS DANIEL PRN Reason: Protocol Last Admin: 08/04/17 06:13 Dose: Not Given Insulin Human Regular (Novolin R) 0 units SUB-Q Q6HR [facility] PRN Reason: Protocol Last Admin: 08/04/17 12:42 Dose: 1 units Lisinopril (Zestril) 5 mg PO QDAY [facility] Last Admin: 08/04/17 09:06 Dose: 5 mg Lorazepam (Ativan) 1 mg IV Q4H PRN PRN Reason: seizures/twitching Multi-Ingred Cream/Lotion/Oil/Oint (Artificial Tears Ophth Oint) 1 applic OU Q4HR PRN PRN Reason: Dry Eye(s) Ondansetron HCl (Zofran) 4 mg IV Q8H PRN PRN Reason: N/V unrelieved by Reglan Simple Syrup (Simple Syrup) 15 ml FEEDTUBE PRN PRN PRN Reason: Hypoglycemia Simple Syrup (Simple Syrup) 30 ml FEEDTUBE PRN PRN PRN Reason: Hypoglycemia Sodium Chloride (Nacl 0.9% 500 Ml) 1 ml IV DIRECT DANIEL Vancomycin HCl (Vancomycin Pharmacy To Dose) 1 each IV PKCONSULT DANIEL PRN Reason: Protocol Objective Vital Signs - 12hr 08/04/17 08/04/17 08/04/17 03:30 03:44 04:00 Temperature 98.8 F Pulse Rate 55 L 56 L Respiratory 16 15 Rate Blood Pressure 152/82 152/82 O2 Sat by Pulse 93 94 Oximetry 08/04/17 08/04/17 08/04/17 04:30 04:40 05:00 Temperature Pulse Rate 53 L 53 L 58 L Respiratory 17 12 Rate Blood Pressure 152/82 133/76 159/92 O2 Sat by Pulse 95 96 93 Oximetry 08/04/17 08/04/17 08/04/17 05:30 06:00 06:30 Temperature Pulse Rate 57 L 56 L 54 L Respiratory 13 15 13 Rate Blood Pressure 159/92 153/88 153/88 O2 Sat by Pulse 94 91 94 Oximetry 08/04/17 08/04/17 08/04/17 07:00 07:30 07:47 Temperature Pulse Rate 54 L 56 L Respiratory 11 L 16 Rate Blood Pressure 145/84 145/84 O2 Sat by Pulse 92 95 94 Oximetry 08/04/17 08/04/17 08/04/17 07:57 08:00 08:30 Temperature 98.2 F Pulse Rate 56 L 56 L 56 L Respiratory 22 22 Rate Blood Pressure 145/84 160/88 160/88 O2 Sat by Pulse 95 94 94 Oximetry 08/04/17 08/04/17 08/04/17 08:46 09:00 09:06 Temperature Pulse Rate 57 L 57 L 67 Respiratory 21 21 Rate Blood Pressure 160/88 164/79 164/79 O2 Sat by Pulse 95 92 Oximetry 08/04/17 08/04/17 08/04/17 09:07 09:16 09:30 Temperature Pulse Rate 67 56 L 54 L Respiratory 21 20 Rate Blood Pressure 164/79 164/79 164/79 O2 Sat by Pulse 95 95 Oximetry 08/04/17 08/04/17 08/04/17 09:46 10:00 10:16 Temperature Pulse Rate 55 L 56 L 55 L Respiratory 20 20 19 Rate Blood Pressure 164/79 149/79 164/79 O2 Sat by Pulse 94 90 95 Oximetry 08/04/17 08/04/17 08/04/17 10:30 10:46 10:56 Temperature Pulse Rate 53 L 55 L 54 L Respiratory 20 20 19 Rate Blood Pressure 164/79 164/79 149/79 O2 Sat by Pulse 95 93 95 Oximetry 08/04/17 08/04/17 08/04/17 11:00 11:16 11:30 Temperature Pulse Rate 57 L 57 L 55 L Respiratory 19 21 22 Rate Blood Pressure 141/73 141/73 141/73 O2 Sat by Pulse 91 94 95 Oximetry 08/04/17 08/04/17 08/04/17 11:46 11:48 12:00 Temperature 97.5 F L Pulse Rate 55 L 56 L Respiratory 21 20 Rate Blood Pressure 141/73 139/82 O2 Sat by Pulse 95 99 93 Oximetry 08/04/17 08/04/17 08/04/17 12:16 12:30 12:46 Temperature Pulse Rate 57 L 57 L 59 L Respiratory 22 22 25 H Rate Blood Pressure 139/82 141/73 141/73 O2 Sat by Pulse 95 95 94 Oximetry 08/04/17 08/04/17 08/04/17 13:00 13:16 13:30 Temperature Pulse Rate 57 L 56 L 57 L Respiratory 21 21 22 Rate Blood Pressure 137/77 137/77 137/77 O2 Sat by Pulse 92 95 95 Oximetry 08/04/17 08/04/17 08/04/17 13:46 14:00 14:16 Temperature Pulse Rate 57 L 57 L 57 L Respiratory 22 23 21 Rate Blood Pressure 137/77 140/81 140/81 O2 Sat by Pulse 95 93 95 Oximetry 08/04/17 14:30 Temperature Pulse Rate 57 L Respiratory 23 Rate Blood Pressure 140/81 O2 Sat by Pulse 95 Oximetry Constitutional: comatose (eyes open, not following commands, flaccid extremities ) Eyes: non-icteric ENT: oropharynx moist Neck: supple Effort: normal Ascultation: Bilateral: clear Cardiovascular: regular rate and rhythm (no mrg) Gastrointestinal: normoactive bowel sounds, soft, non-tender, non-distended Integumentary: normal Extremities: no cyanosis, no edema, pink and warm Neurologic: other (see above) Psychiatric: other (unable to assess) CBC and BMP: 08/04/17 05:44 08/04/17 05:44 ABG, PT/INR, D-dimer: ABG POC ABG pH 7.490 (7.35-7.45) H 08/04/17 10:58 POC ABG pCO2 39.0 (35-45) 08/04/17 10:58 POC ABG pO2 71 (80-105) L 08/04/17 10:58 POC ABG HCO3 29.7 08/04/17 10:58 POC ABG Total CO2 31 08/04/17 10:58 POC ABG O2 Sat 95 08/04/17 10:58 PT/INR, D-dimer PT 15.6 Sec. (12.2-14.9) H 07/27/17 18:26 INR 1.18 (0.87-1.13) H 07/27/17 18:26 Abnormal lab findings: Abnormal Labs 07/27/17 07/27/17 07/27/17 18:26 18:26 18:26 WBC 15.6 H Hgb MCH MCHC Plt Count 115 L Lymph % (Auto) [place] % (Auto) Lymph # [place] # Seg Neutrophils % Lymphocytes % (Manual) 36.0 H Seg Neutrophils # Seg Neutrophils # Man 8.9 H Lymphocytes # (Manual) 5.6 H Monocytes # (Manual) 1.1 H PT 15.6 H INR 1.18 H APTT 38.5 H POC ABG pH POC ABG pCO2 POC ABG pO2 Sodium Potassium Chloride Carbon Dioxide 21 L BUN Creatinine Glucose 252 H POC Glucose Lactic Acid Calcium 7.7 L Total Creatine Kinase CK-MB (CK-2) CK-MB (CK-2) Rel Index Troponin T 0.090 H C-Reactive Protein Serum Total Protein Albumin Khrec-0-Rlbyutquu Gamma Globulins PEP Interpretation Triglycerides 190 H LDL Cholesterol Direct 34 L HDL Cholesterol 21 L Urine WBC (Auto) Urine Creatinine Complement C3 Complement C4 07/27/17 07/27/17 07/27/17 19:02 19:25 21:43 WBC Hgb MCH MCHC Plt Count Lymph % (Auto) [place] % (Auto) Lymph # [place] # Seg Neutrophils % Lymphocytes % (Manual) Seg Neutrophils # Seg Neutrophils # Man Lymphocytes # (Manual) Monocytes # (Manual) PT INR APTT POC ABG pH 7.155 L POC ABG pCO2 47.7 H POC ABG pO2 229 H Sodium Potassium Chloride Carbon Dioxide BUN Creatinine Glucose POC Glucose Lactic Acid 6.00 H* Calcium Total Creatine Kinase CK-MB (CK-2) 4.8 H CK-MB (CK-2) Rel Index Troponin T 0.149 H* D C-Reactive Protein Serum Total Protein Albumin Qsyxj-6-Ovjlwhzut Gamma Globulins PEP Interpretation Triglycerides LDL Cholesterol Direct HDL Cholesterol Urine WBC (Auto) Urine Creatinine Complement C3 Complement C4 07/27/17 07/27/17 07/28/17 22:47 22:47 01:47 WBC Hgb MCH MCHC Plt Count Lymph % (Auto) [place] % (Auto) Lymph # [place] # Seg Neutrophils % Lymphocytes % (Manual) Seg Neutrophils # Seg Neutrophils # Man Lymphocytes # (Manual) Monocytes # (Manual) PT INR APTT POC ABG pH POC ABG pCO2 POC ABG pO2 Sodium Potassium Chloride Carbon Dioxide BUN Creatinine Glucose POC Glucose 199 H Lactic Acid 2.40 H* Calcium Total Creatine Kinase 222 H CK-MB (CK-2) 9.4 H CK-MB (CK-2) Rel Index 4.2 H Troponin T 0.852 H* D C-Reactive Protein Serum Total Protein Albumin Mnjkx-9-Tkbqzvvno Gamma Globulins PEP Interpretation Triglycerides LDL Cholesterol Direct HDL Cholesterol Urine WBC (Auto) Urine Creatinine Complement C3 Complement C4 07/28/17 07/28/17 07/28/17 05:29 05:44 05:44 WBC Hgb MCH MCHC Plt Count Lymph % (Auto) [place] % (Auto) Lymph # [place] # Seg Neutrophils % Lymphocytes % (Manual) Seg Neutrophils # Seg Neutrophils # Man Lymphocytes # (Manual) Monocytes # (Manual) PT INR APTT POC ABG pH 7.268 L POC ABG pCO2 34.8 L POC ABG pO2 Sodium 146 H Potassium 5.1 H D Chloride 113.3 H Carbon Dioxide 18 L BUN 29 H Creatinine 2.0 H D Glucose 194 H POC Glucose Lactic Acid 2.10 H* Calcium 6.8 L Total Creatine Kinase CK-MB (CK-2) CK-MB (CK-2) Rel Index Troponin T C-Reactive Protein Serum Total Protein Albumin Mjgfy-9-Poghewsoq Gamma Globulins PEP Interpretation Triglycerides LDL Cholesterol Direct HDL Cholesterol Urine WBC (Auto) Urine Creatinine Complement C3 Complement C4 1207/28/17 07/28/17 05:44 06:30 16:00 WBC 16.9 H Hgb MCH MCHC 31 L Plt Count Lymph % (Auto) 8.4 L [place] % (Auto) 7.5 H Lymph # [place] # 1.3 H Seg Neutrophils % 84.1 H Lymphocytes % (Manual) Seg Neutrophils # 14.2 H Seg Neutrophils # Man Lymphocytes # (Manual) Monocytes # (Manual) PT INR APTT POC ABG pH POC ABG pCO2 POC ABG pO2 Sodium 146 H Potassium Chloride Carbon Dioxide BUN Creatinine 2.4 H Glucose POC Glucose Lactic Acid Calcium Total Creatine Kinase 434 H CK-MB (CK-2) 10.8 H CK-MB (CK-2) Rel Index Troponin T 0.521 H* D C-Reactive Protein Serum Total Protein Albumin Ttoca-2-Pbymcijur Gamma Globulins PEP Interpretation Triglycerides LDL Cholesterol Direct HDL Cholesterol Urine WBC (Auto) Urine Creatinine Complement C3 Complement C4 07/28/17 07/28/17 07/28/17 16:00 16:00 16:20 WBC Hgb MCH MCHC Plt Count Lymph % (Auto) [place] % (Auto) Lymph # [place] # Seg Neutrophils % Lymphocytes % (Manual) Seg Neutrophils # Seg Neutrophils # Man Lymphocytes # (Manual) Monocytes # (Manual) PT INR APTT POC ABG pH POC ABG pCO2 POC ABG pO2 Sodium Potassium Chloride Carbon Dioxide BUN Creatinine Glucose POC Glucose Lactic Acid Calcium Total Creatine Kinase CK-MB (CK-2) CK-MB (CK-2) Rel Index Troponin T C-Reactive Protein Serum Total Protein Albumin Rouwy-6-Oliyldrft Gamma Globulins PEP Interpretation Triglycerides LDL Cholesterol Direct HDL Cholesterol Urine WBC (Auto) 12.0 H Urine Creatinine Complement C3 67 L Complement C4 14 L 07/28/17 07/29/17 07/29/17 16:20 04:02 05:00 WBC Hgb MCH MCHC Plt Count Lymph % (Auto) [place] % (Auto) Lymph # [place] # Seg Neutrophils % Lymphocytes % (Manual) Seg Neutrophils # Seg Neutrophils # Man Lymphocytes # (Manual) Monocytes # (Manual) PT INR APTT POC ABG pH 7.304 L POC ABG pCO2 31.6 L POC ABG pO2 Sodium Potassium Chloride 111.7 H Carbon Dioxide 18 L BUN 37 H Creatinine 2.1 H Glucose 213 H POC Glucose Lactic Acid Calcium 6.9 L Total Creatine Kinase CK-MB (CK-2) CK-MB (CK-2) Rel Index Troponin T C-Reactive Protein Serum Total Protein Albumin Xgqhj-9-Cegfmsdwm Gamma Globulins PEP Interpretation Triglycerides LDL Cholesterol Direct HDL Cholesterol Urine WBC (Auto) Urine Creatinine 58.4 H Complement C3 Complement C4 07/29/17 07/29/17 07/30/17 Unknown Unknown 04:07 WBC 14.4 H Hgb MCH MCHC Plt Count 125 L Lymph % (Auto) [place] % (Auto) Lymph # [place] # Seg Neutrophils % Lymphocytes % (Manual) Seg Neutrophils # Seg Neutrophils # Man Lymphocytes # (Manual) Monocytes # (Manual) PT INR APTT POC ABG pH 7.319 L POC ABG pCO2 27.8 L POC ABG pO2 121 H Sodium Potassium Chloride Carbon Dioxide BUN Creatinine Glucose POC Glucose Lactic Acid Calcium Total Creatine Kinase CK-MB (CK-2) CK-MB (CK-2) Rel Index Troponin T C-Reactive Protein Serum Total Protein 4.9 L Albumin 2.9 L Xejpq-3-Fbpyomcaz 0.4 H Gamma Globulins 0.5 L PEP Interpretation see below H Triglycerides LDL Cholesterol Direct HDL Cholesterol Urine WBC (Auto) Urine Creatinine Complement C3 Complement C4 07/30/17 07/30/17 07/30/17 12:43 17:22 23:27 WBC Hgb MCH MCHC Plt Count Lymph % (Auto) [place] % (Auto) Lymph # [place] # Seg Neutrophils % Lymphocytes % (Manual) Seg Neutrophils # Seg Neutrophils # Man Lymphocytes # (Manual) Monocytes # (Manual) PT INR APTT POC ABG pH POC ABG pCO2 POC ABG pO2 Sodium Potassium Chloride Carbon Dioxide BUN Creatinine Glucose POC Glucose 134 H 117 H 173 H Lactic Acid Calcium Total Creatine Kinase CK-MB (CK-2) CK-MB (CK-2) Rel Index Troponin T C-Reactive Protein Serum Total Protein Albumin Ndyoq-8-Zmgrydsxh Gamma Globulins PEP Interpretation Triglycerides LDL Cholesterol Direct HDL Cholesterol Urine WBC (Auto) Urine Creatinine Complement C3 Complement C4 07/30/17 07/30/17 07/31/17 Unknown Unknown 04:13 WBC 15.6 H Hgb MCH MCHC Plt Count 117 L Lymph % (Auto) [place] % (Auto) Lymph # [place] # Seg Neutrophils % Lymphocytes % (Manual) Seg Neutrophils # Seg Neutrophils # Man Lymphocytes # (Manual) Monocytes # (Manual) PT INR APTT POC ABG pH POC ABG pCO2 26.8 L POC ABG pO2 74 L Sodium 146 H Potassium Chloride 113.8 H Carbon Dioxide 18 L BUN 36 H Creatinine 1.8 H Glucose 177 H POC Glucose Lactic Acid Calcium 6.9 L Total Creatine Kinase CK-MB (CK-2) CK-MB (CK-2) Rel Index Troponin T C-Reactive Protein Serum Total Protein Albumin Qongj-1-Nkavasxnl Gamma Globulins PEP Interpretation Triglycerides LDL Cholesterol Direct HDL Cholesterol Urine WBC (Auto) Urine Creatinine Complement C3 Complement C4 07/31/17 07/31/17 07/31/17 05:00 05:00 05:01 WBC 18.5 H Hgb MCH MCHC Plt Count 135 L Lymph % (Auto) [place] % (Auto) Lymph # [place] # Seg Neutrophils % Lymphocytes % (Manual) Seg Neutrophils # Seg Neutrophils # Man Lymphocytes # (Manual) Monocytes # (Manual) PT INR APTT POC ABG pH POC ABG pCO2 POC ABG pO2 Sodium 148 H Potassium Chloride 112.8 H Carbon Dioxide 20 L BUN 33 H Creatinine 1.6 H Glucose 188 H POC Glucose 219 H Lactic Acid Calcium 7.1 L Total Creatine Kinase CK-MB (CK-2) CK-MB (CK-2) Rel Index Troponin T C-Reactive Protein Serum Total Protein Albumin Xsyhw-2-Qnmcpxzve Gamma Globulins PEP Interpretation Triglycerides LDL Cholesterol Direct HDL Cholesterol Urine WBC (Auto) Urine Creatinine Complement C3 Complement C4 07/31/17 07/31/17 08/01/17 14:36 17:57 00:02 WBC Hgb MCH MCHC Plt Count Lymph % (Auto) [place] % (Auto) Lymph # [place] # Seg Neutrophils % Lymphocytes % (Manual) Seg Neutrophils # Seg Neutrophils # Man Lymphocytes # (Manual) Monocytes # (Manual) PT INR APTT POC ABG pH POC ABG pCO2 POC ABG pO2 Sodium Potassium Chloride Carbon Dioxide BUN Creatinine Glucose POC Glucose 199 H 216 H 131 H Lactic Acid Calcium Total Creatine Kinase CK-MB (CK-2) CK-MB (CK-2) Rel Index Troponin T C-Reactive Protein Serum Total Protein Albumin Fjjgp-0-Tutgjtbsa Gamma Globulins PEP Interpretation Triglycerides LDL Cholesterol Direct HDL Cholesterol Urine WBC (Auto) Urine Creatinine Complement C3 Complement C4 08/01/17 08/01/17 08/01/17 03:22 04:10 04:10 WBC 19.3 H Hgb MCH MCHC Plt Count 129 L Lymph % (Auto) [place] % (Auto) Lymph # [place] # Seg Neutrophils % Lymphocytes % (Manual) Seg Neutrophils # Seg Neutrophils # Man Lymphocytes # (Manual) Monocytes # (Manual) PT INR APTT POC ABG pH 7.481 H POC ABG pCO2 29.6 L POC ABG pO2 65 L Sodium 148 H Potassium Chloride 113.2 H Carbon Dioxide 21 L BUN 29 H Creatinine Glucose 173 H POC Glucose Lactic Acid Calcium 7.3 L Total Creatine Kinase CK-MB (CK-2) CK-MB (CK-2) Rel Index Troponin T C-Reactive Protein Serum Total Protein Albumin Ujsde-7-Rngqreoqf Gamma Globulins PEP Interpretation Triglycerides LDL Cholesterol Direct HDL Cholesterol Urine WBC (Auto) Urine Creatinine Complement C3 Complement C4 08/01/17 08/01/17 08/01/17 05:18 11:55 18:13 WBC Hgb MCH MCHC Plt Count Lymph % (Auto) [place] % (Auto) Lymph # [place] # Seg Neutrophils % Lymphocytes % (Manual) Seg Neutrophils # Seg Neutrophils # Man Lymphocytes # (Manual) Monocytes # (Manual) PT INR APTT POC ABG pH POC ABG pCO2 POC ABG pO2 Sodium Potassium Chloride Carbon Dioxide BUN Creatinine Glucose POC Glucose 179 H 174 H 189 H Lactic Acid Calcium Total Creatine Kinase CK-MB (CK-2) CK-MB (CK-2) Rel Index Troponin T C-Reactive Protein Serum Total Protein Albumin Afavq-0-Xjumysque Gamma Globulins PEP Interpretation Triglycerides LDL Cholesterol Direct HDL Cholesterol Urine WBC (Auto) Urine Creatinine Complement C3 Complement C4 08/01/17 08/01/17 08/02/17 19:42 22:01 00:01 WBC Hgb MCH MCHC Plt Count Lymph % (Auto) [place] % (Auto) Lymph # [place] # Seg Neutrophils % Lymphocytes % (Manual) Seg Neutrophils # Seg Neutrophils # Man Lymphocytes # (Manual) Monocytes # (Manual) PT INR APTT POC ABG pH POC ABG pCO2 POC ABG pO2 Sodium Potassium Chloride Carbon Dioxide BUN Creatinine Glucose POC Glucose 165 H 129 H Lactic Acid Calcium Total Creatine Kinase CK-MB (CK-2) CK-MB (CK-2) Rel Index Troponin T C-Reactive Protein 4.00 H Serum Total Protein Albumin Tkjzg-4-Lbncpgoaa Gamma Globulins PEP Interpretation Triglycerides LDL Cholesterol Direct HDL Cholesterol Urine WBC (Auto) Urine Creatinine Complement C3 Complement C4 08/02/17 08/02/17 08/02/17 03:40 04:10 06:00 WBC Hgb MCH MCHC Plt Count Lymph % (Auto) [place] % (Auto) Lymph # [place] # Seg Neutrophils % Lymphocytes % (Manual) Seg Neutrophils # Seg Neutrophils # Man Lymphocytes # (Manual) Monocytes # (Manual) PT INR APTT POC ABG pH 7.474 H POC ABG pCO2 33.8 L POC ABG pO2 73 L Sodium 148 H Potassium Chloride 109.3 H Carbon Dioxide BUN 31 H Creatinine Glucose 168 H POC Glucose 172 H Lactic Acid Calcium 6.8 L Total Creatine Kinase CK-MB (CK-2) CK-MB (CK-2) Rel Index Troponin T C-Reactive Protein Serum Total Protein Albumin Dodsh-1-Ymfcyrlfu Gamma Globulins PEP Interpretation Triglycerides LDL Cholesterol Direct HDL Cholesterol Urine WBC (Auto) Urine Creatinine Complement C3 Complement C4 08/02/17 08/02/17 08/02/17 07:09 11:25 17:46 WBC 20.1 H Hgb 11.7 L MCH MCHC Plt Count 127 L Lymph % (Auto) [place] % (Auto) Lymph # [place] # Seg Neutrophils % Lymphocytes % (Manual) Seg Neutrophils # Seg Neutrophils # Man Lymphocytes # (Manual) Monocytes # (Manual) PT INR APTT POC ABG pH POC ABG pCO2 POC ABG pO2 Sodium Potassium Chloride Carbon Dioxide BUN Creatinine Glucose POC Glucose 159 H 171 H Lactic Acid Calcium Total Creatine Kinase CK-MB (CK-2) CK-MB (CK-2) Rel Index Troponin T C-Reactive Protein Serum Total Protein Albumin Dnfod-7-Pptuemosd Gamma Globulins PEP Interpretation Triglycerides LDL Cholesterol Direct HDL Cholesterol Urine WBC (Auto) Urine Creatinine Complement C3 Complement C4 08/02/17 08/03/17 08/03/17 22:30 00:05 03:29 WBC Hgb MCH MCHC Plt Count Lymph % (Auto) [place] % (Auto) Lymph # [place] # Seg Neutrophils % Lymphocytes % (Manual) Seg Neutrophils # Seg Neutrophils # Man Lymphocytes # (Manual) Monocytes # (Manual) PT INR APTT POC ABG pH POC ABG pCO2 POC ABG pO2 Sodium 148 H Potassium Chloride 109.1 H Carbon Dioxide BUN 32 H Creatinine Glucose 179 H POC Glucose 179 H 199 H Lactic Acid Calcium 6.9 L Total Creatine Kinase CK-MB (CK-2) CK-MB (CK-2) Rel Index Troponin T C-Reactive Protein Serum Total Protein Albumin Zkcey-7-Qjqavimrh Gamma Globulins PEP Interpretation Triglycerides LDL Cholesterol Direct HDL Cholesterol Urine WBC (Auto) Urine Creatinine Complement C3 Complement C4 08/03/17 08/03/17 08/03/17 03:29 05:40 06:01 WBC 19.9 H Hgb MCH MCHC Plt Count 130 L Lymph % (Auto) 7.0 L [place] % (Auto) 11.1 H Lymph # [place] # 2.2 H Seg Neutrophils % 81.4 H Lymphocytes % (Manual) Seg Neutrophils # 16.2 H Seg Neutrophils # Man Lymphocytes # (Manual) Monocytes # (Manual) PT INR APTT POC ABG pH 7.468 H POC ABG pCO2 POC ABG pO2 70 L Sodium Potassium Chloride Carbon Dioxide BUN Creatinine Glucose POC Glucose 179 H Lactic Acid Calcium Total Creatine Kinase CK-MB (CK-2) CK-MB (CK-2) Rel Index Troponin T C-Reactive Protein Serum Total Protein Albumin Iqzjz-1-Mzhmuzvwy Gamma Globulins PEP Interpretation Triglycerides LDL Cholesterol Direct HDL Cholesterol Urine WBC (Auto) Urine Creatinine Complement C3 Complement C4 08/03/17 08/03/17 08/04/17 11:43 17:34 00:02 WBC Hgb MCH MCHC Plt Count Lymph % (Auto) [place] % (Auto) Lymph # [place] # Seg Neutrophils % Lymphocytes % (Manual) Seg Neutrophils # Seg Neutrophils # Man Lymphocytes # (Manual) Monocytes # (Manual) PT INR APTT POC ABG pH POC ABG pCO2 POC ABG pO2 Sodium Potassium Chloride Carbon Dioxide BUN Creatinine Glucose POC Glucose 166 H 193 H 191 H Lactic Acid Calcium Total Creatine Kinase CK-MB (CK-2) CK-MB (CK-2) Rel Index Troponin T C-Reactive Protein Serum Total Protein Albumin Lyhxv-0-Xibulfcde Gamma Globulins PEP Interpretation Triglycerides LDL Cholesterol Direct HDL Cholesterol Urine WBC (Auto) Urine Creatinine Complement C3 Complement C4 08/04/17 08/04/17 08/04/17 05:18 05:44 05:44 WBC 16.8 H Hgb 11.7 L MCH 27 L MCHC Plt Count Lymph % (Auto) 5.0 L [place] % (Auto) 9.5 H Lymph # 0.8 L [place] # 1.6 H Seg Neutrophils % 84.7 H Lymphocytes % (Manual) Seg Neutrophils # 14.2 H Seg Neutrophils # Man Lymphocytes # (Manual) Monocytes # (Manual) PT INR APTT POC ABG pH POC ABG pCO2 POC ABG pO2 Sodium 148 H Potassium Chloride 108.1 H Carbon Dioxide BUN 31 H Creatinine Glucose 181 H POC Glucose 173 H Lactic Acid Calcium 7.6 L Total Creatine Kinase CK-MB (CK-2) CK-MB (CK-2) Rel Index Troponin T C-Reactive Protein Serum Total Protein Albumin Zqbge-0-Oucwmrfkn Gamma Globulins PEP Interpretation Triglycerides LDL Cholesterol Direct HDL Cholesterol Urine WBC (Auto) Urine Creatinine Complement C3 Complement C4 08/04/17 10:58 WBC Hgb MCH MCHC Plt Count Lymph % (Auto) [place] % (Auto) Lymph # [place] # Seg Neutrophils % Lymphocytes % (Manual) Seg Neutrophils # Seg Neutrophils # Man Lymphocytes # (Manual) Monocytes # (Manual) PT INR APTT POC ABG pH 7.490 H POC ABG pCO2 POC ABG pO2 71 L Sodium Potassium Chloride Carbon Dioxide BUN Creatinine Glucose POC Glucose Lactic Acid Calcium Total Creatine Kinase CK-MB (CK-2) CK-MB (CK-2) Rel Index Troponin T C-Reactive Protein Serum Total Protein Albumin [id number] Gamma Globulins PEP Interpretation Triglycerides LDL Cholesterol Direct HDL Cholesterol Urine WBC (Auto) Urine Creatinine Complement C3 Complement C4 Chest x-ray: report reviewed, image reviewed
[2017-08-05] MEDS: LOVENOX SUB-Q SCH ×2 (01:43→21:12)
[2017-08-05] MEDS: ZOSYN/NS 3.375GM/50ML 3.375 GM/50 ML BAG IV SCH ×3 (01:45→14:14)
[2017-08-05 08:03] LABS: Basophils # (Auto) 0.1 K/mm3 (0.0-0.1); Eosinophils # (Auto) 0.3 K/mm3 (0.0-0.4); Eosinophils % (Auto) 1.9 % (0.0-4.3); Hematocrit 32.3 % (35.5-45.6); Hemoglobin 10.6 gm/dl (11.8-15.2); Lymphocytes % (Auto) 6.7 % (13.4-35.0); Mean Corpuscular HGB Conc 33 % (32-34); Mean Corpuscular Hemoglobin 28 pg (28-32); Mean Corpuscular Volume 86 fl (84-94); Monocytes # (Auto) 1.2 K/mm3 (0.0-0.8); Monocytes % (Auto) 8.6 % (0.0-7.3); Platelet Count 165 K/mm3 (140-440); Red Blood Count 3.76 M/mm3 (3.65-5.03); Red Cell Distribution Width 14.1 % (13.2-15.2)
[2017-08-05 08:26] LABS: BUN/Creatinine Ratio 29; Blood Urea Nitrogen 32 mg/dL (9-20); Calcium 7.6 mg/dL (8.4-10.2); Hemolysis Index 37
--- NOTE | 2017-08-05 09:08 | Progress Note ---
Assessment and Plan Impression * Nonoliguric acute kidney injury due to ischemic ATN s/p cardiac arrest --Hepatitis B and C both are negative --Abd/Pelvis CT - bilateral kidney cysts as well as stones * Status post OOH cardiac arrest- ventricular fibrillation * Ischemic cardiomyopathy, LVEF 15-20% * Coronary artery disease s/p CABG 2005 * Hypertension * Metabolic acidosis * Hypernatremia * Microscopic hematuria/proteinuria * MRSA+sputum Recommendations * No indication for renal replacement therapy. * Needs free water - continue 250ml [id number] * Hold diuresis - Na elevated, FiO2 25% * Await pending vasculitis workup. * Abx per primary team * Monitor fluid status and electrolytes closely. * Avoid nephrotoxins * Will follow peripherally Subjective Date of service: 08/05/17 Principal diagnosis: cardiac arrest at home. Intubated and unresponcsive Interval history: No acute events overnight Objective - Vital Signs Vital signs: Vital Signs - 12hr 08/04/17 08/04/17 08/04/17 21:16 21:30 21:35 Temperature Pulse Rate 57 L 54 L 56 L Respiratory 16 16 Rate Respiratory Rate [ Generalized] Blood Pressure 141/77 141/77 141/77 O2 Sat by Pulse 95 95 Oximetry 08/04/17 08/04/17 08/04/17 21:46 22:00 22:02 Temperature Pulse Rate 58 L 55 L 55 L Respiratory 16 17 16 Rate Respiratory 16 Rate [ Generalized] Blood Pressure 153/80 159/87 159/87 O2 Sat by Pulse 95 95 94 Oximetry 08/04/17 08/04/17 08/04/17 22:16 22:30 22:46 Temperature Pulse Rate 54 L 54 L 53 L Respiratory 17 15 16 Rate Respiratory Rate [ Generalized] Blood Pressure 159/87 159/87 159/87 O2 Sat by Pulse 94 95 95 Oximetry 08/04/17 08/04/17 08/04/17 23:00 23:16 23:30 Temperature Pulse Rate 56 L 53 L 51 L Respiratory 15 16 16 Rate Respiratory Rate [ Generalized] Blood Pressure 153/89 153/89 153/89 O2 Sat by Pulse 94 94 94 Oximetry 08/04/17 08/04/17 08/05/17 23:46 23:55 00:00 Temperature 99.0 F Pulse Rate 54 L 53 L Respiratory 16 16 Rate Respiratory Rate [ Generalized] Blood Pressure 159/87 159/87 O2 Sat by Pulse 94 Oximetry 08/05/17 08/05/17 08/05/17 00:04 00:16 00:25 Temperature Pulse Rate 56 L 52 L 56 L Respiratory 16 Rate Respiratory 16 Rate [ Generalized] Blood Pressure 153/89 153/89 O2 Sat by Pulse 95 94 96 Oximetry 08/05/17 08/05/17 08/05/17 00:30 00:46 01:00 Temperature Pulse Rate 55 L 54 L 56 L Respiratory 15 16 16 Rate Respiratory Rate [ Generalized] Blood Pressure 153/89 124/62 124/62 O2 Sat by Pulse 94 94 Oximetry 08/05/17 08/05/17 08/05/17 01:16 01:30 01:46 Temperature Pulse Rate 55 L 60 56 L Respiratory 16 17 17 Rate Respiratory Rate [ Generalized] Blood Pressure 144/66 144/66 144/66 O2 Sat by Pulse 94 96 95 Oximetry 08/05/17 08/05/17 08/05/17 02:00 02:16 02:30 Temperature Pulse Rate 57 L 56 L 60 Respiratory 17 16 17 Rate Respiratory Rate [ Generalized] Blood Pressure 138/78 144/66 144/66 O2 Sat by Pulse 93 94 95 Oximetry 08/05/17 08/05/17 08/05/17 02:46 03:00 03:16 Temperature Pulse Rate 57 L 55 L 54 L Respiratory 17 16 16 Rate Respiratory Rate [ Generalized] Blood Pressure 144/66 143/79 138/77 O2 Sat by Pulse 95 92 94 Oximetry 08/05/17 08/05/17 08/05/17 03:30 03:46 03:51 Temperature 98.5 F Pulse Rate 55 L 53 L 55 L Respiratory 17 15 Rate Respiratory Rate [ Generalized] Blood Pressure 138/77 138/77 143/79 O2 Sat by Pulse 95 94 95 Oximetry 08/05/17 08/05/17 08/05/17 04:00 04:16 04:30 Temperature Pulse Rate 53 L 54 L 59 L Respiratory 17 15 16 Rate Respiratory Rate [ Generalized] Blood Pressure 138/77 122/68 122/68 O2 Sat by Pulse 94 95 Oximetry 08/05/17 08/05/17 08/05/17 04:46 04:50 05:00 Temperature Pulse Rate 54 L 53 L 53 L Respiratory 16 16 Rate Respiratory 16 Rate [ Generalized] Blood Pressure 122/68 122/68 O2 Sat by Pulse 95 96 97 Oximetry 08/05/17 08/05/17 08/05/17 05:16 05:30 05:46 Temperature Pulse Rate 53 L 53 L 54 L Respiratory 15 22 18 Rate Respiratory Rate [ Generalized] Blood Pressure 150/83 150/83 150/83 O2 Sat by Pulse 97 96 96 Oximetry 08/05/17 08/05/17 08/05/17 06:00 06:16 06:30 Temperature Pulse Rate 57 L 51 L 52 L Respiratory 16 16 16 Rate Respiratory Rate [ Generalized] Blood Pressure 150/83 146/82 146/82 O2 Sat by Pulse 96 96 95 Oximetry 08/05/17 08/05/17 08/05/17 06:46 07:00 07:16 Temperature Pulse Rate 52 L 52 L 52 L Respiratory 16 16 16 Rate Respiratory Rate [ Generalized] Blood Pressure 146/82 146/82 126/70 O2 Sat by Pulse 95 95 95 Oximetry 08/05/17 08/05/17 08/05/17 07:30 07:46 08:00 Temperature Pulse Rate 52 L 52 L 51 L Respiratory 15 16 16 Rate Respiratory Rate [ Generalized] Blood Pressure 126/70 126/70 133/73 O2 Sat by Pulse 95 95 94 Oximetry 08/05/17 08/05/17 08:08 08:11 Temperature Pulse Rate 53 L 61 Respiratory 15 Rate Respiratory Rate [ Generalized] Blood Pressure 133/73 133/73 O2 Sat by Pulse 94 95 Oximetry - General Appearance General appearance: intubated EENT: ATNC Respiratory: Present: Clear to Ascultation Cardiology: regular, S1S2 Gastrointestinal: no tenderness, no distended Integumentary: no rash, warm and dry Musculoskeletal: other (no edema) - Lab 08/05/17 07:34 08/05/17 07:34 Most recent lab results Calcium 7.6 mg/dL (8.4-10.2) L 08/05/17 07:34 Phosphorus 1.90 mg/dL (2.5-4.5) L 08/05/17 07:34 Magnesium 2.10 mg/dL (1.7-2.3) 08/05/17 07:34 Urine Creatinine 58.4 mg/dL (0.1-20.0) H 07/28/17 16:20 Urine Sodium 94 mmol/L 07/28/17 16:20
[2017-08-05] MEDS: ZESTRIL PO SCH (11:15)
[2017-08-05] MEDS: BABY ASPIRIN FEEDTUBE SCH (11:15)
[2017-08-05] MEDS: COREG PO SCH ×2 (11:15→21:12)
[2017-08-05] MEDS: CORDARONE PO SCH ×2 (11:15→21:13)
[2017-08-05] MEDS: PEPCID IV SCH ×2 (11:16→21:12)
--- NOTE | 2017-08-05 12:59 | Progress Note ---
Assessment and Plan Out of the hospital Cardiac arrest 40 minutes of ACLS before ROSC Family member reports patient declined ICD 30 days ago Anoxic encephalopathy Ischemic cardiomyopathy, LVEF 15-20% CAD s/p CABG 2006 at [place] ONEILL to LAD; COREY to RI; SVG to PLOM; SVG to RV branch and PDA branch Non-specific troponin Acute renal failure LLL pneumonia Supportive cardiac management. Subjective Date of service: 08/05/17 Principal diagnosis: cardiac arrest at home. Intubated and unresponcsive Interval history: Remains intubated on mechanical ventilation. Family members at bedside. Objective Vital Signs Temp Pulse Resp Resp BP Pulse Ox 08/05/17 11:11 60 21 155/85 96 08/05/17 08:11 61 15 133/73 95 08/05/17 08:08 53 L 133/73 94 08/05/17 08:00 51 L 16 133/73 94 08/05/17 07:46 52 L 16 126/70 95 08/05/17 07:30 52 L 15 126/70 95 08/05/17 07:16 52 L 16 126/70 95 08/05/17 07:00 52 L 16 146/82 95 08/05/17 06:46 52 L 16 146/82 95 08/05/17 06:30 52 L 16 146/82 95 08/05/17 06:16 51 L 16 146/82 96 08/05/17 06:00 57 L 16 150/83 96 08/05/17 05:46 54 L 18 150/83 96 08/05/17 05:30 53 L 22 150/83 96 08/05/17 05:16 53 L 15 150/83 97 08/05/17 05:00 53 L 16 122/68 97 08/05/17 04:50 53 L 16 96 08/05/17 04:46 54 L 16 122/68 95 08/05/17 04:30 59 L 16 122/68 95 08/05/17 04:16 54 L 15 122/68 94 08/05/17 04:00 53 L 17 138/77 08/05/17 03:51 55 L 143/79 95 08/05/17 03:46 98.5 F 53 L 15 138/77 94 08/05/17 03:30 55 L 17 138/77 95 08/05/17 03:16 54 L 16 138/77 94 08/05/17 03:00 55 L 16 143/79 92 08/05/17 02:46 57 L 17 144/66 95 08/05/17 02:30 60 17 144/66 95 08/05/17 02:16 56 L 16 144/66 94 08/05/17 02:00 57 L 17 138/78 93 08/05/17 01:46 56 L 17 144/66 95 08/05/17 01:30 60 17 144/66 96 08/05/17 01:16 55 L 16 144/66 94 08/05/17 01:00 56 L 16 124/62 08/05/17 00:46 54 L 16 124/62 94 08/05/17 00:30 55 L 15 153/89 94 08/05/17 00:25 56 L 16 96 08/05/17 00:16 52 L 16 153/89 94 08/05/17 00:04 56 L 153/89 95 08/05/17 00:00 53 L 16 159/87 08/04/17 23:55 99.0 F 08/04/17 23:46 54 L 16 159/87 94 08/04/17 23:30 51 L 16 153/89 94 08/04/17 23:16 53 L 16 153/89 94 08/04/17 23:00 56 L 15 153/89 94 08/04/17 22:46 53 L 16 159/87 95 08/04/17 22:30 54 L 15 159/87 95 08/04/17 22:16 54 L 17 159/87 94 08/04/17 22:02 55 L 16 159/87 94 08/04/17 22:00 55 L 17 16 159/87 95 08/04/17 21:46 58 L 16 153/80 95 08/04/17 21:35 56 L 141/77 08/04/17 21:30 54 L 16 141/77 95 08/04/17 21:16 57 L 16 141/77 95 08/04/17 21:00 54 L 16 141/77 93 08/04/17 20:46 55 L 16 153/80 94 08/04/17 20:30 56 L 16 153/80 94 08/04/17 20:20 57 L 153/80 95 08/04/17 20:16 58 L 23 153/80 95 08/04/17 20:12 98.1 F 08/04/17 20:00 60 25 H 157/81 92 08/04/17 19:46 58 L 23 157/81 95 08/04/17 19:30 58 L 22 157/81 95 08/04/17 19:16 62 17 141/81 94 08/04/17 19:00 62 23 16 141/81 95 08/04/17 18:46 61 25 H 157/81 95 08/04/17 18:30 57 L 23 157/81 95 08/04/17 18:16 59 L 23 157/81 95 08/04/17 18:00 57 L 22 144/81 93 08/04/17 17:46 55 L 21 144/81 95 08/04/17 17:30 58 L 25 H 144/81 96 08/04/17 17:16 54 L 23 144/81 95 08/04/17 17:00 55 L 23 140/82 08/04/17 16:46 55 L 23 140/82 96 08/04/17 16:30 54 L 22 140/82 95 08/04/17 16:16 57 L 24 140/82 95 08/04/17 16:00 98.7 F 56 L 24 148/82 95 08/04/17 15:46 58 L 22 148/82 95 08/04/17 15:38 56 L 24 148/82 95 08/04/17 15:30 57 L 23 148/82 95 08/04/17 15:16 57 L 23 148/82 95 08/04/17 15:00 56 L 23 140/81 92 08/04/17 14:46 59 L 26 H 140/81 95 08/04/17 14:30 57 L 23 140/81 95 08/04/17 14:16 57 L 21 140/81 95 08/04/17 14:00 57 L 23 140/81 93 08/04/17 13:46 57 L 22 137/77 95 08/04/17 13:30 57 L 22 137/77 95 08/04/17 13:16 56 L 21 137/77 95 08/04/17 13:00 57 L 21 137/77 92 - Physical Examination General: Other (intubated on the vent) Cardiac: Positive: Reg Rate and Rhythm - Labs and Meds CBC 08/05/17 Range/Units 07:34 WBC 14.4 H (4.5-11.0) K/mm3 RBC 3.76 (3.65-5.03) M/mm3 Hgb 10.6 L (11.8-15.2) gm/dl Hct 32.3 L (35.5-45.6) % Plt Count 165 (140-440) K/mm3 Lymph # 1.0 L (1.2-5.4) K/mm3 [place] # 1.2 H (0.0-0.8) K/mm3 Eos # 0.3 (0.0-0.4) K/mm3 Baso # 0.1 (0.0-0.1) K/mm3 Comprehensive Metabolic Panel 08/05/17 Range/Units 07:34 Sodium 148 H (137-145) mmol/L Potassium 3.9 (3.6-5.0) mmol/L Chloride 107.7 H (98-107) mmol/L Carbon Dioxide 27 (22-30) mmol/L BUN 32 H (9-20) mg/dL Creatinine 1.1 (0.8-1.5) mg/dL Glucose 241 H (75-100) mg/dL Calcium 7.6 L (8.4-10.2) mg/dL - Imaging and Cardiology EKG: image reviewed
--- NOTE | 2017-08-05 13:26 | Progress Note ---
Assessment and Plan Imp: 1. S/p CP arrest, ? primary cardiac event (e.g. arrhythmia) in setting of ICMP 2. Anoxic enceph 3. Acute respiratory failure, hypoxia 4. KATELYN 5. Hypernatremia 6. ICMP 7. 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 ? LLL aspiration pneumonia/sepsis Rec: 1. ABX per ID; fever may be central; rare MRSA could be contamination/ colonization but Vanco resumed for now 2. Removed groin line 3. Holding all sedation 4. Cont. TFs; free water per FT; holding Lasix; continue gentle D5W to correct sodium 5. Awaiting neurology recs/EEG, etc. 6. GI PPx 7. SCDs; monitor platelets 8. Tolerating PSV but mentation precludes extubation; this is vent d#9; likely will need trach/PEG next week and seems to understand this 9. Guarded prognosis Plan of care reviewed with patient's , she understand/agree Complex decision-making Subjective Date of service: 08/05/17 Principal diagnosis: cardiac arrest at home. Intubated and unresponcsive Interval history: No events. On vent. Unresponsive although eyes open. Off all pressors. Fever better. Active Medications Acetaminophen (Tylenol) 650 mg PO Q6HR PRN PRN Reason: Fever Last Admin: 08/01/17 13:51 Dose: 650 mg Albuterol (Proventil) 2.5 mg IH Q3HRT PRN PRN Reason: Shortness Of Breath Amiodarone HCl (Cordarone) 200 mg PO BID [facility] Last Admin: 08/05/17 11:15 Dose: 200 mg Lipase/Protease/Amylase (Pancreaze Dr 10,500 Unit) 1 each FEEDTUBE PRN PRN PRN Reason: For Clogged Feeding Tube Last Admin: 07/31/17 10:07 Dose: 1 each Aspirin (Baby Aspirin) 81 mg FEEDTUBE QDAY [facility] Last Admin: 08/05/17 11:15 Dose: 81 mg Carvedilol (Coreg) 3.125 mg PO BID [facility] Last Admin: 08/05/17 11:15 Dose: 3.125 mg Enoxaparin Sodium (Lovenox) 40 mg SUB-Q QDAY@2200 [facility] Last Admin: 08/05/17 01:43 Dose: 40 mg Famotidine (Pepcid) 20 mg IV BID [facility] Last Admin: 08/05/17 11:16 Dose: 20 mg Hydrophilic Ointment (Vaseline Lip Therapy) 1 applic TP Q2HR PRN PRN Reason: Dry Lips Vasopressin 20 unit/ Sodium (Chloride) 101 mls @ 9.09 mls/hr IV TITR DANIEL; 0.03 UNITS/MIN PRN Reason: Protocol Last Titration: 07/30/17 09:21 Dose: 0 units/min, 0 mls/hr Norepinephrine (Levophed Drip 4 Mg/Ns 250 Ml) 4 mg in 250 mls @ 7.5 mls/hr IV TITR DANIEL; 2 MCG/MIN PRN Reason: Protocol Piperacillin Sod/Tazobactam Sod (Zosyn/Ns 3.375gm/50ml) 3.375 gm in 50 mls @ 100 mls/hr IV Q6HR DANIEL PRN Reason: Protocol Last Admin: 08/05/17 05:30 Dose: 100 mls/hr Vancomycin HCl 1,250 mg/ (Sodium Chloride) 262.5 mls @ 166.667 mls/hr IV Q24H [facility] Last Admin: 08/04/17 13:46 Dose: 166.667 mls/hr Dextrose (D5w) 1,000 mls @ 75 mls/hr IV DIRECT [facility] Potassium Phosphate 15 mmol/ (Sodium Chloride) 255 mls @ 125 mls/hr IV ONCE ONE Stop: 08/05/17 15:25 Insulin Aspart (Novolog) 0 units SUB-Q QHS [facility] PRN Reason: Protocol Last Admin: 08/04/17 22:00 Dose: Not Given Insulin Human Regular (Novolin R) 0 units SUB-Q Q6HR [facility] PRN Reason: Protocol Last Admin: 08/05/17 13:14 Dose: 3 units Lisinopril (Zestril) 5 mg PO QDAY [facility] Last Admin: 08/05/17 11:15 Dose: 5 mg Lorazepam (Ativan) 1 mg IV Q4H PRN PRN Reason: seizures/twitching Multi-Ingred Cream/Lotion/Oil/Oint (Artificial Tears Ophth Oint) 1 applic OU Q4HR PRN PRN Reason: Dry Eye(s) Ondansetron HCl (Zofran) 4 mg IV Q8H PRN PRN Reason: N/V unrelieved by Reglan Simple Syrup (Simple Syrup) 15 ml FEEDTUBE PRN PRN PRN Reason: Hypoglycemia Simple Syrup (Simple Syrup) 30 ml FEEDTUBE PRN PRN PRN Reason: Hypoglycemia Sodium Chloride (Nacl 0.9% 500 Ml) 1 ml IV DIRECT DANIEL Vancomycin HCl (Vancomycin Pharmacy To Dose) 1 each IV PKCONSULT DANIEL PRN Reason: Protocol Objective Vital Signs - 12hr 08/05/17 08/05/17 08/05/17 01:30 01:46 02:00 Temperature Pulse Rate 60 56 L 57 L Respiratory 17 17 17 Rate Respiratory Rate [ Generalized] Blood Pressure 144/66 144/66 138/78 O2 Sat by Pulse 96 95 93 Oximetry 08/05/17 08/05/17 08/05/17 02:16 02:30 02:46 Temperature Pulse Rate 56 L 60 57 L Respiratory 16 17 17 Rate Respiratory Rate [ Generalized] Blood Pressure 144/66 144/66 144/66 O2 Sat by Pulse 94 95 95 Oximetry 08/05/17 08/05/17 08/05/17 03:00 03:16 03:30 Temperature Pulse Rate 55 L 54 L 55 L Respiratory 16 16 17 Rate Respiratory Rate [ Generalized] Blood Pressure 143/79 138/77 138/77 O2 Sat by Pulse 92 94 95 Oximetry 08/05/17 08/05/17 08/05/17 03:46 03:51 04:00 Temperature 98.5 F Pulse Rate 53 L 55 L 53 L Respiratory 15 17 Rate Respiratory Rate [ Generalized] Blood Pressure 138/77 143/79 138/77 O2 Sat by Pulse 94 95 Oximetry 08/05/17 08/05/17 08/05/17 04:16 04:30 04:46 Temperature Pulse Rate 54 L 59 L 54 L Respiratory 15 16 16 Rate Respiratory Rate [ Generalized] Blood Pressure 122/68 122/68 122/68 O2 Sat by Pulse 94 95 95 Oximetry 08/05/17 08/05/17 08/05/17 04:50 05:00 05:16 Temperature Pulse Rate 53 L 53 L 53 L Respiratory 16 15 Rate Respiratory 16 Rate [ Generalized] Blood Pressure 122/68 150/83 O2 Sat by Pulse 96 97 97 Oximetry 08/05/17 08/05/17 08/05/17 05:30 05:46 06:00 Temperature Pulse Rate 53 L 54 L 57 L Respiratory 22 18 16 Rate Respiratory Rate [ Generalized] Blood Pressure 150/83 150/83 150/83 O2 Sat by Pulse 96 96 96 Oximetry 08/05/17 08/05/17 08/05/17 06:16 06:30 06:46 Temperature Pulse Rate 51 L 52 L 52 L Respiratory 16 16 16 Rate Respiratory Rate [ Generalized] Blood Pressure 146/82 146/82 146/82 O2 Sat by Pulse 96 95 95 Oximetry 08/05/17 08/05/17 08/05/17 07:00 07:16 07:30 Temperature Pulse Rate 52 L 52 L 52 L Respiratory 16 16 15 Rate Respiratory Rate [ Generalized] Blood Pressure 146/82 126/70 126/70 O2 Sat by Pulse 95 95 95 Oximetry 08/05/17 08/05/17 08/05/17 07:46 08:00 08:08 Temperature Pulse Rate 52 L 51 L 53 L Respiratory 16 16 Rate Respiratory Rate [ Generalized] Blood Pressure 126/70 133/73 133/73 O2 Sat by Pulse 95 94 94 Oximetry 08/05/17 08/05/17 08:11 11:11 Temperature Pulse Rate 61 60 Respiratory 15 21 Rate Respiratory Rate [ Generalized] Blood Pressure 133/73 155/85 O2 Sat by Pulse 95 96 Oximetry Constitutional: comatose (eyes open, not following commands, flaccid extremities ) Eyes: non-icteric ENT: oropharynx moist Neck: supple Effort: normal Ascultation: Bilateral: clear Cardiovascular: regular rate and rhythm (no mrg) Gastrointestinal: normoactive bowel sounds, soft, non-tender, non-distended Integumentary: normal Extremities: no cyanosis, no edema, pink and warm Neurologic: other (see above) Psychiatric: other (unable to assess) CBC and BMP: 08/05/17 07:34 08/05/17 07:34 ABG, PT/INR, D-dimer: ABG POC ABG pH 7.490 (7.35-7.45) H 08/04/17 10:58 POC ABG pCO2 39.0 (35-45) 08/04/17 10:58 POC ABG pO2 71 (80-105) L 08/04/17 10:58 POC ABG HCO3 29.7 08/04/17 10:58 POC ABG Total CO2 31 08/04/17 10:58 POC ABG O2 Sat 95 08/04/17 10:58 PT/INR, D-dimer PT 15.6 Sec. (12.2-14.9) H 07/27/17 18:26 INR 1.18 (0.87-1.13) H 07/27/17 18:26 Abnormal lab findings: Abnormal Labs 07/27/17 07/27/17 07/27/17 18:26 18:26 18:26 WBC 15.6 H Hgb Hct MCH MCHC Plt Count 115 L Lymph % (Auto) Lares % (Auto) Lymph # Lares # Seg Neutrophils % Lymphocytes % (Manual) 36.0 H Seg Neutrophils # Seg Neutrophils # Man 8.9 H Lymphocytes # (Manual) 5.6 H Monocytes # (Manual) 1.1 H PT 15.6 H INR 1.18 H APTT 38.5 H POC ABG pH POC ABG pCO2 POC ABG pO2 Sodium Potassium Chloride Carbon Dioxide 21 L BUN Creatinine Glucose 252 H POC Glucose Lactic Acid Calcium 7.7 L Phosphorus Total Creatine Kinase CK-MB (CK-2) CK-MB (CK-2) Rel Index Troponin T 0.090 H C-Reactive Protein Serum Total Protein Albumin Mftoo-5-Ilbgdptkz Gamma Globulins PEP Interpretation Triglycerides 190 H LDL Cholesterol Direct 34 L HDL Cholesterol 21 L Urine WBC (Auto) Urine Creatinine Complement C3 Complement C4 07/27/17 07/27/17 07/27/17 19:02 19:25 21:43 WBC Hgb Hct MCH MCHC Plt Count Lymph % (Auto) Lares % (Auto) Lymph # La[place] # Seg Neutrophils % Lymphocytes % (Manual) Seg Neutrophils # Seg Neutrophils # Man Lymphocytes # (Manual) Monocytes # (Manual) PT INR APTT POC ABG pH 7.155 L POC ABG pCO2 47.7 H POC ABG pO2 229 H Sodium Potassium Chloride Carbon Dioxide BUN Creatinine Glucose POC Glucose Lactic Acid 6.00 H* Calcium Phosphorus Total Creatine Kinase CK-MB (CK-2) 4.8 H CK-MB (CK-2) Rel Index Troponin T 0.149 H* D C-Reactive Protein Serum Total Protein Albumin Ennfc-6-Hmxblhnjd Gamma Globulins PEP Interpretation Triglycerides LDL Cholesterol Direct HDL Cholesterol Urine WBC (Auto) Urine Creatinine Complement C3 Complement C4 07/27/17 07/27/17 07/28/17 22:47 22:47 01:47 WBC Hgb Hct MCH MCHC Plt Count Lymph % (Auto) Lares % (Auto) Lymph # La[place] # Seg Neutrophils % Lymphocytes % (Manual) Seg Neutrophils # Seg Neutrophils # Man Lymphocytes # (Manual) Monocytes # (Manual) PT INR APTT POC ABG pH POC ABG pCO2 POC ABG pO2 Sodium Potassium Chloride Carbon Dioxide BUN Creatinine Glucose POC Glucose 199 H Lactic Acid 2.40 H* Calcium Phosphorus Total Creatine Kinase 222 H CK-MB (CK-2) 9.4 H CK-MB (CK-2) Rel Index 4.2 H Troponin T 0.852 H* D C-Reactive Protein Serum Total Protein Albumin Vaqxa-0-Bfjmvjkmq Gamma Globulins PEP Interpretation Triglycerides LDL Cholesterol Direct HDL Cholesterol Urine WBC (Auto) Urine Creatinine Complement C3 Complement C4 07/28/17 07/28/17 07/28/17 05:29 05:44 05:44 WBC Hgb Hct MCH MCHC Plt Count Lymph % (Auto) Lares % (Auto) Lymph # [place] # Seg Neutrophils % Lymphocytes % (Manual) Seg Neutrophils # Seg Neutrophils # Man Lymphocytes # (Manual) Monocytes # (Manual) PT INR APTT POC ABG pH 7.268 L POC ABG pCO2 34.8 L POC ABG pO2 Sodium 146 H Potassium 5.1 H D Chloride 113.3 H Carbon Dioxide 18 L BUN 29 H Creatinine 2.0 H D Glucose 194 H POC Glucose Lactic Acid 2.10 H* Calcium 6.8 L Phosphorus Total Creatine Kinase CK-MB (CK-2) CK-MB (CK-2) Rel Index Troponin T C-Reactive Protein Serum Total Protein Albumin Mxewf-2-Nfuljhssg Gamma Globulins PEP Interpretation Triglycerides LDL Cholesterol Direct HDL Cholesterol Urine WBC (Auto) Urine Creatinine Complement C3 Complement C4 07/28/17 07/28/17 07/28/17 05:44 06:30 16:00 WBC 16.9 H Hgb Hct MCH MCHC 31 L Plt Count Lymph % (Auto) 8.4 L [place] % (Auto) 7.5 H Lymph # Lares # 1.3 H Seg Neutrophils % 84.1 H Lymphocytes % (Manual) Seg Neutrophils # 14.2 H Seg Neutrophils # Man Lymphocytes # (Manual) Monocytes # (Manual) PT INR APTT POC ABG pH POC ABG pCO2 POC ABG pO2 Sodium 146 H Potassium Chloride Carbon Dioxide BUN Creatinine 2.4 H Glucose POC Glucose Lactic Acid Calcium Phosphorus Total Creatine Kinase 434 H CK-MB (CK-2) 10.8 H CK-MB (CK-2) Rel Index Troponin T 0.521 H* D C-Reactive Protein Serum Total Protein Albumin Gcznx-9-Jrpgwdcmx Gamma Globulins PEP Interpretation Triglycerides LDL Cholesterol Direct HDL Cholesterol Urine WBC (Auto) Urine Creatinine Complement C3 Complement C4 07/28/17 07/28/17 07/28/17 16:00 16:00 16:20 WBC Hgb Hct MCH MCHC Plt Count Lymph % (Auto) [place] % (Auto) Lymph # [place] # Seg Neutrophils % Lymphocytes % (Manual) Seg Neutrophils # Seg Neutrophils # Man Lymphocytes # (Manual) Monocytes # (Manual) PT INR APTT POC ABG pH POC ABG pCO2 POC ABG pO2 Sodium Potassium Chloride Carbon Dioxide BUN Creatinine Glucose POC Glucose Lactic Acid Calcium Phosphorus Total Creatine Kinase CK-MB (CK-2) CK-MB (CK-2) Rel Index Troponin T C-Reactive Protein Serum Total Protein Albumin Bpnay-7-Ccqbokahk Gamma Globulins PEP Interpretation Triglycerides LDL Cholesterol Direct HDL Cholesterol Urine WBC (Auto) 12.0 H Urine Creatinine Complement C3 67 L Complement C4 14 L 07/28/17 07/29/17 07/29/17 16:20 04:02 05:00 WBC Hgb Hct MCH MCHC Plt Count Lymph % (Auto) Lares % (Auto) Lymph # [place] # Seg Neutrophils % Lymphocytes % (Manual) Seg Neutrophils # Seg Neutrophils # Man Lymphocytes # (Manual) Monocytes # (Manual) PT INR APTT POC ABG pH 7.304 L POC ABG pCO2 31.6 L POC ABG pO2 Sodium Potassium Chloride 111.7 H Carbon Dioxide 18 L BUN 37 H Creatinine 2.1 H Glucose 213 H POC Glucose Lactic Acid Calcium 6.9 L Phosphorus Total Creatine Kinase CK-MB (CK-2) CK-MB (CK-2) Rel Index Troponin T C-Reactive Protein Serum Total Protein Albumin Oqhlk-9-Zybafqqxr Gamma Globulins PEP Interpretation Triglycerides LDL Cholesterol Direct HDL Cholesterol Urine WBC (Auto) Urine Creatinine 58.4 H Complement C3 Complement C4 07/29/17 07/29/17 07/30/17 Unknown Unknown 04:07 WBC 14.4 H Hgb Hct MCH MCHC Plt Count 125 L Lymph % (Auto) [place]res % (Auto) Lymph # [place] # Seg Neutrophils % Lymphocytes % (Manual) Seg Neutrophils # Seg Neutrophils # Man Lymphocytes # (Manual) Monocytes # (Manual) PT INR APTT POC ABG pH 7.319 L POC ABG pCO2 27.8 L POC ABG pO2 121 H Sodium Potassium Chloride Carbon Dioxide BUN Creatinine Glucose POC Glucose Lactic Acid Calcium Phosphorus Total Creatine Kinase CK-MB (CK-2) CK-MB (CK-2) Rel Index Troponin T C-Reactive Protein Serum Total Protein 4.9 L Albumin 2.9 L Bxfwp-3-Zsfwpmrrb 0.4 H Gamma Globulins 0.5 L PEP Interpretation see below H Triglycerides LDL Cholesterol Direct HDL Cholesterol Urine WBC (Auto) Urine Creatinine Complement C3 Complement C4 07/30/17 07/30/17 07/30/17 12:43 17:22 23:27 WBC Hgb Hct MCH MCHC Plt Count Lymph % (Auto) [place] % (Auto) Lymph # [place] # Seg Neutrophils % Lymphocytes % (Manual) Seg Neutrophils # Seg Neutrophils # Man Lymphocytes # (Manual) Monocytes # (Manual) PT INR APTT POC ABG pH POC ABG pCO2 POC ABG pO2 Sodium Potassium Chloride Carbon Dioxide BUN Creatinine Glucose POC Glucose 134 H 117 H 173 H Lactic Acid Calcium Phosphorus Total Creatine Kinase CK-MB (CK-2) CK-MB (CK-2) Rel Index Troponin T C-Reactive Protein Serum Total Protein Albumin Raaqn-9-Tgmsxchxs Gamma Globulins PEP Interpretation Triglycerides LDL Cholesterol Direct HDL Cholesterol Urine WBC (Auto) Urine Creatinine Complement C3 Complement C4 07/30/17 07/30/17 07/31/17 Unknown Unknown 04:13 WBC 15.6 H Hgb Hct MCH MCHC Plt Count 117 L Lymph % (Auto) [place]res % (Auto) Lymph # [place] # Seg Neutrophils % Lymphocytes % (Manual) Seg Neutrophils # Seg Neutrophils # Man Lymphocytes # (Manual) Monocytes # (Manual) PT INR APTT POC ABG pH POC ABG pCO2 26.8 L POC ABG pO2 74 L Sodium 146 H Potassium Chloride 113.8 H Carbon Dioxide 18 L BUN 36 H Creatinine 1.8 H Glucose 177 H POC Glucose Lactic Acid Calcium 6.9 L Phosphorus Total Creatine Kinase CK-MB (CK-2) CK-MB (CK-2) Rel Index Troponin T C-Reactive Protein Serum Total Protein Albumin Youir-5-Lmvcgqadn Gamma Globulins PEP Interpretation Triglycerides LDL Cholesterol Direct HDL Cholesterol Urine WBC (Auto) Urine Creatinine Complement C3 Complement C4 07/31/17 07/31/17 07/31/17 05:00 05:00 05:01 WBC 18.5 H Hgb Hct MCH MCHC Plt Count 135 L Lymph % (Auto) [place]res % (Auto) Lymph # [place] # Seg Neutrophils % Lymphocytes % (Manual) Seg Neutrophils # Seg Neutrophils # Man Lymphocytes # (Manual) Monocytes # (Manual) PT INR APTT POC ABG pH POC ABG pCO2 POC ABG pO2 Sodium 148 H Potassium Chloride 112.8 H Carbon Dioxide 20 L BUN 33 H Creatinine 1.6 H Glucose 188 H POC Glucose 219 H Lactic Acid Calcium 7.1 L Phosphorus Total Creatine Kinase CK-MB (CK-2) CK-MB (CK-2) Rel Index Troponin T C-Reactive Protein Serum Total Protein Albumin Dbeos-4-Ktycqfnky Gamma Globulins PEP Interpretation Triglycerides LDL Cholesterol Direct HDL Cholesterol Urine WBC (Auto) Urine Creatinine Complement C3 Complement C4 07/31/17 07/31/17 08/01/17 14:36 17:57 00:02 WBC Hgb Hct MCH MCHC Plt Count Lymph % (Auto) [place]res % (Auto) Lymph # [place] # Seg Neutrophils % Lymphocytes % (Manual) Seg Neutrophils # Seg Neutrophils # Man Lymphocytes # (Manual) Monocytes # (Manual) PT INR APTT POC ABG pH POC ABG pCO2 POC ABG pO2 Sodium Potassium Chloride Carbon Dioxide BUN Creatinine Glucose POC Glucose 199 H 216 H 131 H Lactic Acid Calcium Phosphorus Total Creatine Kinase CK-MB (CK-2) CK-MB (CK-2) Rel Index Troponin T C-Reactive Protein Serum Total Protein Albumin Nknzg-6-Uzknpvjos Gamma Globulins PEP Interpretation Triglycerides LDL Cholesterol Direct HDL Cholesterol Urine WBC (Auto) Urine Creatinine Complement C3 Complement C4 08/01/17 08/01/17 08/01/17 03:22 04:10 04:10 WBC 19.3 H Hgb Hct MCH MCHC Plt Count 129 L Lymph % (Auto) [place]res % (Auto) Lymph # [place] # Seg Neutrophils % Lymphocytes % (Manual) Seg Neutrophils # Seg Neutrophils # Man Lymphocytes # (Manual) Monocytes # (Manual) PT INR APTT POC ABG pH 7.481 H POC ABG pCO2 29.6 L POC ABG pO2 65 L Sodium 148 H Potassium Chloride 113.2 H Carbon Dioxide 21 L BUN 29 H Creatinine Glucose 173 H POC Glucose Lactic Acid Calcium 7.3 L Phosphorus Total Creatine Kinase CK-MB (CK-2) CK-MB (CK-2) Rel Index Troponin T C-Reactive Protein Serum Total Protein Albumin Uxhdv-1-Kdebdceea Gamma Globulins PEP Interpretation Triglycerides LDL Cholesterol Direct HDL Cholesterol Urine WBC (Auto) Urine Creatinine Complement C3 Complement C4 08/01/17 08/01/17 08/01/17 05:18 11:55 18:13 WBC Hgb Hct MCH MCHC Plt Count Lymph % (Auto) [place]res % (Auto) Lymph # [place] # Seg Neutrophils % Lymphocytes % (Manual) Seg Neutrophils # Seg Neutrophils # Man Lymphocytes # (Manual) Monocytes # (Manual) PT INR APTT POC ABG pH POC ABG pCO2 POC ABG pO2 Sodium Potassium Chloride Carbon Dioxide BUN Creatinine Glucose POC Glucose 179 H 174 H 189 H Lactic Acid Calcium Phosphorus Total Creatine Kinase CK-MB (CK-2) CK-MB (CK-2) Rel Index Troponin T C-Reactive Protein Serum Total Protein Albumin Kobss-3-Fmnluiieb Gamma Globulins PEP Interpretation Triglycerides LDL Cholesterol Direct HDL Cholesterol Urine WBC (Auto) Urine Creatinine Complement C3 Complement C4 08/01/17 08/01/17 08/02/17 19:42 22:01 00:01 WBC Hgb Hct MCH MCHC Plt Count Lymph % (Auto) [place]res % (Auto) Lymph # [place] # Seg Neutrophils % Lymphocytes % (Manual) Seg Neutrophils # Seg Neutrophils # Man Lymphocytes # (Manual) Monocytes # (Manual) PT INR APTT POC ABG pH POC ABG pCO2 POC ABG pO2 Sodium Potassium Chloride Carbon Dioxide BUN Creatinine Glucose POC Glucose 165 H 129 H Lactic Acid Calcium Phosphorus Total Creatine Kinase CK-MB (CK-2) CK-MB (CK-2) Rel Index Troponin T C-Reactive Protein 4.00 H Serum Total Protein Albumin Uqjyj-8-Wrdtkpjem Gamma Globulins PEP Interpretation Triglycerides LDL Cholesterol Direct HDL Cholesterol Urine WBC (Auto) Urine Creatinine Complement C3 Complement C4 08/02/17 08/02/17 08/02/17 03:40 04:10 06:00 WBC Hgb Hct MCH MCHC Plt Count Lymph % (Auto) [place]res % (Auto) Lymph # [place] # Seg Neutrophils % Lymphocytes % (Manual) Seg Neutrophils # Seg Neutrophils # Man Lymphocytes # (Manual) Monocytes # (Manual) PT INR APTT POC ABG pH 7.474 H POC ABG pCO2 33.8 L POC ABG pO2 73 L Sodium 148 H Potassium Chloride 109.3 H Carbon Dioxide BUN 31 H Creatinine Glucose 168 H POC Glucose 172 H Lactic Acid Calcium 6.8 L Phosphorus Total Creatine Kinase CK-MB (CK-2) CK-MB (CK-2) Rel Index Troponin T C-Reactive Protein Serum Total Protein Albumin Afihj-2-Zgvyhaded Gamma Globulins PEP Interpretation Triglycerides LDL Cholesterol Direct HDL Cholesterol Urine WBC (Auto) Urine Creatinine Complement C3 Complement C4 08/02/17 08/02/17 08/02/17 07:09 11:25 17:46 WBC 20.1 H Hgb 11.7 L Hct MCH MCHC Plt Count 127 L Lymph % (Auto) [place] % (Auto) Lymph # [place] # Seg Neutrophils % Lymphocytes % (Manual) Seg Neutrophils # Seg Neutrophils # Man Lymphocytes # (Manual) Monocytes # (Manual) PT INR APTT POC ABG pH POC ABG pCO2 POC ABG pO2 Sodium Potassium Chloride Carbon Dioxide BUN Creatinine Glucose POC Glucose 159 H 171 H Lactic Acid Calcium Phosphorus Total Creatine Kinase CK-MB (CK-2) CK-MB (CK-2) Rel Index Troponin T C-Reactive Protein Serum Total Protein Albumin Dizxy-7-Nrfpfepfc Gamma Globulins PEP Interpretation Triglycerides LDL Cholesterol Direct HDL Cholesterol Urine WBC (Auto) Urine Creatinine Complement C3 Complement C4 08/02/17 08/03/17 08/03/17 22:30 00:05 03:29 WBC Hgb Hct MCH MCHC Plt Count Lymph % (Auto) Lares % (Auto) Lymph # [place] # Seg Neutrophils % Lymphocytes % (Manual) Seg Neutrophils # Seg Neutrophils # Man Lymphocytes # (Manual) Monocytes # (Manual) PT INR APTT POC ABG pH POC ABG pCO2 POC ABG pO2 Sodium 148 H Potassium Chloride 109.1 H Carbon Dioxide BUN 32 H Creatinine Glucose 179 H POC Glucose 179 H 199 H Lactic Acid Calcium 6.9 L Phosphorus Total Creatine Kinase CK-MB (CK-2) CK-MB (CK-2) Rel Index Troponin T C-Reactive Protein Serum Total Protein Albumin Mpvpc-2-Unmvhmbbt Gamma Globulins PEP Interpretation Triglycerides LDL Cholesterol Direct HDL Cholesterol Urine WBC (Auto) Urine Creatinine Complement C3 Complement C4 08/03/17 08/03/17 08/03/17 03:29 05:40 06:01 WBC 19.9 H Hgb Hct MCH MCHC Plt Count 130 L Lymph % (Auto) 7.0 L [place] % (Auto) 11.1 H Lymph # [place]res # 2.2 H Seg Neutrophils % 81.4 H Lymphocytes % (Manual) Seg Neutrophils # 16.2 H Seg Neutrophils # Man Lymphocytes # (Manual) Monocytes # (Manual) PT INR APTT POC ABG pH 7.468 H POC ABG pCO2 POC ABG pO2 70 L Sodium Potassium Chloride Carbon Dioxide BUN Creatinine Glucose POC Glucose 179 H Lactic Acid Calcium Phosphorus Total Creatine Kinase CK-MB (CK-2) CK-MB (CK-2) Rel Index Troponin T C-Reactive Protein Serum Total Protein Albumin Kgepc-6-Qumeyqdul Gamma Globulins PEP Interpretation Triglycerides LDL Cholesterol Direct HDL Cholesterol Urine WBC (Auto) Urine Creatinine Complement C3 Complement C4 08/03/17 08/03/17 08/04/17 11:43 17:34 00:02 WBC Hgb Hct MCH MCHC Plt Count Lymph % (Auto) [place] % (Auto) Lymph # [place] # Seg Neutrophils % Lymphocytes % (Manual) Seg Neutrophils # Seg Neutrophils # Man Lymphocytes # (Manual) Monocytes # (Manual) PT INR APTT POC ABG pH POC ABG pCO2 POC ABG pO2 Sodium Potassium Chloride Carbon Dioxide BUN Creatinine Glucose POC Glucose 166 H 193 H 191 H Lactic Acid Calcium Phosphorus Total Creatine Kinase CK-MB (CK-2) CK-MB (CK-2) Rel Index Troponin T C-Reactive Protein Serum Total Protein Albumin Sjwqt-5-Eaitvmrqw Gamma Globulins PEP Interpretation Triglycerides LDL Cholesterol Direct HDL Cholesterol Urine WBC (Auto) Urine Creatinine Complement C3 Complement C4 08/04/17 08/04/17 08/04/17 05:18 05:44 05:44 WBC 16.8 H Hgb 11.7 L Hct MCH 27 L MCHC Plt Count Lymph % (Auto) 5.0 L [place] % (Auto) 9.5 H Lymph # 0.8 L [place] # 1.6 H Seg Neutrophils % 84.7 H Lymphocytes % (Manual) Seg Neutrophils # 14.2 H Seg Neutrophils # Man Lymphocytes # (Manual) Monocytes # (Manual) PT INR APTT POC ABG pH POC ABG pCO2 POC ABG pO2 Sodium 148 H Potassium Chloride 108.1 H Carbon Dioxide BUN 31 H Creatinine Glucose 181 H POC Glucose 173 H Lactic Acid Calcium 7.6 L Phosphorus Total Creatine Kinase CK-MB (CK-2) CK-MB (CK-2) Rel Index Troponin T C-Reactive Protein Serum Total Protein Albumin Tsdar-0-Stngwaxny Gamma Globulins PEP Interpretation Triglycerides LDL Cholesterol Direct HDL Cholesterol Urine WBC (Auto) Urine Creatinine Complement C3 Complement C4 08/04/17 08/04/17 08/04/17 10:58 12:34 17:35 WBC Hgb Hct MCH MCHC Plt Count Lymph % (Auto) [place] % (Auto) Lymph # [place] # Seg Neutrophils % Lymphocytes % (Manual) Seg Neutrophils # Seg Neutrophils # Man Lymphocytes # (Manual) Monocytes # (Manual) PT INR APTT POC ABG pH 7.490 H POC ABG pCO2 POC ABG pO2 71 L Sodium Potassium Chloride Carbon Dioxide BUN Creatinine Glucose POC Glucose 191 H 188 H Lactic Acid Calcium Phosphorus Total Creatine Kinase CK-MB (CK-2) CK-MB (CK-2) Rel Index Troponin T C-Reactive Protein Serum Total Protein Albumin Relwv-1-Lkpkflrka Gamma Globulins PEP Interpretation Triglycerides LDL Cholesterol Direct HDL Cholesterol Urine WBC (Auto) Urine Creatinine Complement C3 Complement C4 08/05/17 08/05/17 08/05/17 00:00 05:32 07:34 WBC 14.4 H Hgb 10.6 L Hct 32.3 L MCH MCHC Plt Count Lymph % (Auto) 6.7 L [place] % (Auto) 8.6 H Lymph # 1.0 L Lares # 1.2 H Seg Neutrophils % 81.8 H Lymphocytes % (Manual) Seg Neutrophils # 11.8 H Seg Neutrophils # Man Lymphocytes # (Manual) Monocytes # (Manual) PT INR APTT POC ABG pH POC ABG pCO2 POC ABG pO2 Sodium Potassium Chloride Carbon Dioxide BUN Creatinine Glucose POC Glucose 216 H 240 H Lactic Acid Calcium Phosphorus Total Creatine Kinase CK-MB (CK-2) CK-MB (CK-2) Rel Index Troponin T C-Reactive Protein Serum Total Protein Albumin [id number] Gamma Globulins PEP Interpretation Triglycerides LDL Cholesterol Direct HDL Cholesterol Urine WBC (Auto) Urine Creatinine Complement C3 Complement C4 08/05/17 08/05/17 07:34 12:36 WBC Hgb Hct MCH MCHC Plt Count Lymph % (Auto) Lares % (Auto) Lymph # Lares # Seg Neutrophils % Lymphocytes % (Manual) Seg Neutrophils # Seg Neutrophils # Man Lymphocytes # (Manual) Monocytes # (Manual) PT INR APTT POC ABG pH POC ABG pCO2 POC ABG pO2 Sodium 148 H Potassium Chloride 107.7 H Carbon Dioxide BUN 32 H Creatinine Glucose 241 H POC Glucose 206 H Lactic Acid Calcium 7.6 L Phosphorus 1.90 L Total Creatine Kinase CK-MB (CK-2) CK-MB (CK-2) Rel Index Troponin T C-Reactive Protein Serum Total Protein Albumin [id number] Gamma Globulins PEP Interpretation Triglycerides LDL Cholesterol Direct HDL Cholesterol Urine WBC (Auto) Urine Creatinine Complement C3 Complement C4 Chest x-ray: report reviewed, image reviewed
[2017-08-05] MEDS ORDERED: KPHOS 15 MMOL in NACL 0.9% 250ML 250 ML IV ONE (14:23)
[2017-08-05] MEDS: VANCOMYCIN 1,250 MG in NACL 0.9% 250ML 250 ML IV SCH (14:45)
--- NOTE | 2017-08-05 16:11 | Progress Note ---
Assessment and Plan Assessment and plan: 71 year old man with history of CAD, CHF was brought to the emerghency room after he had a cardiac arrest at home. He had a cough productive of yellow phlegm, fever 3 days. EMS was called, CPR was continued for another 40 minutes prior to arrival in the emergency room, he had a V. fib or V. tach rhythm for which he was shocked per EMS. CPR was continued in the emergency room, he was hypotensive and placed on levophed and vasopressin. Remains unresponsive. Neurologist evaluating EEG pending - Cardio-resp arrest at home. All interdisciplinary notes reviewed. Remains unresponsive. Intubated and vent supported. Opening eyes only, -comatose Persistent vegetative state -need to have family meeting and discuss goals of care. -would recommend comfort care and hospice placement vs trache and PEG then NH placement - Shock. Cardiogenic +/- septic shock. V fib sp shock off vasopressor, BP is stable. -Apparently, patient declined ICD 30 days ago Acute hypoxic Respiratory failure on MV >96 hours -continue vent Ischemic cardiomyopathy, LVEF 15-20% CAD s/p CABG 2005 at [place] [facility] to LAD; COREY to RI; SVG to PLOM; SVG to RV branch and PDA branch Non-specific troponin Not consistent with ACS Acute renal failure - Acute kidney Injury due to acute tubular necrosis. Improving, Creatinine improved to nl. BUN slightly elevated Nephrology following. - CAD s/p CABG. 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 Anoxic encephalopathy. EEG for evolution of cerebral function. Neurologist following. Discussed with Dr. Brown - Hypernatremia: Increase free water by G tube - Leukocytosis: From presumed aspiration pneumonia versus community acquired pneumonia. Blood cultures no growth to date. Continue Zosyn/ vanco ID following -Pneumonia/Septic shock: left lobar, likely aspiration Blood culture so far are neg. continue abx -influenza neg, legionella neg, Strep pneumoniae neg -crp=4 -repeat resp cx 08/01 +MRSA (likely a colonizer) - Seizure: Post arrest. Neurologist on board. - Hyperglycemia: Monitor blood sugars with sliding scale coverage for now - Full code status Discussed at length with patient's regarding patient's status. Discussed with neurologreina Brown - Prophylaxis with Lovenox, GI with Pepcid. The high probability of a clinically significant, sudden or life threatening deterioration of the [cv, neuro, renal, pulmonary] system(s) required my full and direct attention, intervention and personal management. The aggregate critical care time was [32] minutes. This time is in addition to time spent performing reported procedures but includes the following: [x] Data Review and interpretation [x] Patient assessment and monitoring of vital signs [x] Documentation [x] Medication orders and management History Interval history: Patient was seen and evaluated this morning, patient is non communicative. Hospitalist Physical - Physical exam Narrative exam: Patient was on mechanical ventilation, currently on CPAP trial. The patient appeared well nourished and normally developed. Vital signs as documented. Head exam is unremarkable. No scleral icterus . Neck is without jugular venous distension, thyromegaly, or carotid bruits. Lungs are clear to auscultation. Cardiac exam reveals regular rate and Rhythm. First and second heart sounds normal. No murmurs, rubs or gallops. Abdominal exam reveals normal bowel sounds, no masses, no organomegaly and no aortic enlargement. Extremities are nonedematous and both femoral and pedal pulses are normal. ACID TESTER: Comatose. - Constitutional Vitals: Temp Pulse Resp BP Pulse Ox 98.5 F 55 L 21 156/85 96 08/05/17 03:46 08/05/17 14:26 08/05/17 14:26 08/05/17 14:26 08/05/17 14:26 General appearance: Present: no acute distress, well-nourished (intubated and vent supported), other Results - Labs CBC & Chem 7: 08/05/17 07:34 08/05/17 07:34 Labs: Laboratory Last Values WBC 14.4 K/mm3 (4.5-11.0) H 08/05/17 07:34 RBC 3.76 M/mm3 (3.65-5.03) 08/05/17 07:34 Hgb 10.6 gm/dl (11.8-15.2) L 08/05/17 07:34 Hct 32.3 % (35.5-45.6) L 08/05/17 07:34 MCV 86 fl (84-94) 08/05/17 07:34 MCH 28 pg (28-32) 08/05/17 07:34 MCHC 33 % (32-34) 08/05/17 07:34 RDW 14.1 % (13.2-15.2) 08/05/17 07:34 Plt Count 165 K/mm3 (140-440) 08/05/17 07:34 Lymph % (Auto) 6.7 % (13.4-35.0) L 08/05/17 07:34 Lee % (Auto) 8.6 % (0.0-7.3) H 08/05/17 07:34 Eos % (Auto) 1.9 % (0.0-4.3) 08/05/17 07:34 Baso % (Auto) 1.0 % (0.0-1.8) 08/05/17 07:34 Lymph # 1.0 K/mm3 (1.2-5.4) L 08/05/17 07:34 Lee # 1.2 K/mm3 (0.0-0.8) H 08/05/17 07:34 Eos # 0.3 K/mm3 (0.0-0.4) 08/05/17 07:34 Baso # 0.1 K/mm3 (0.0-0.1) 08/05/17 07:34 Add Manual Diff Complete 07/27/17 18:26 Total Counted 100 07/27/17 18:26 Seg Neutrophils % 81.8 % (40.0-70.0) H 08/05/17 07:34 Seg Neuts % (Manual) 57.0 % (40.0-70.0) 07/27/17 18:26 Band Neutrophils % 0 % 07/27/17 18:26 Lymphocytes % (Manual) 36.0 % (13.4-35.0) H 07/27/17 18:26 Reactive Lymphs % (Man) 0 % 07/27/17 18:26 Monocytes % (Manual) 7.0 % (0.0-7.3) 07/27/17 18:26 Eosinophils % (Manual) 0 % (0.0-4.3) 07/27/17 18:26 Basophils % (Manual) 0 % (0.0-1.8) 07/27/17 18:26 Metamyelocytes % 0 % 07/27/17 18:26 Myelocytes % 0 % 07/27/17 18:26 Promyelocytes % 0 % 07/27/17 18:26 Blast Cells % 0 % 07/27/17 18:26 Nucleated RBC % Not Reportable 07/27/17 18:26 Seg Neutrophils # 11.8 K/mm3 (1.8-7.7) H 08/05/17 07:34 Seg Neutrophils # Man 8.9 K/mm3 (1.8-7.7) H 07/27/17 18:26 Band Neutrophils # 0.0 K/mm3 07/27/17 18:26 Lymphocytes # (Manual) 5.6 K/mm3 (1.2-5.4) H 07/27/17 18:26 Abs React Lymphs (Man) 0.0 K/mm3 07/27/17 18:26 Monocytes # (Manual) 1.1 K/mm3 (0.0-0.8) H 07/27/17 18:26 Eosinophils # (Manual) 0.0 K/mm3 (0.0-0.4) 07/27/17 18:26 Basophils # (Manual) 0.0 K/mm3 (0.0-0.1) 07/27/17 18:26 Metamyelocytes # 0.0 K/mm3 07/27/17 18:26 Myelocytes # 0.0 K/mm3 07/27/17 18:26 Promyelocytes # 0.0 K/mm3 07/27/17 18:26 Blast Cells # 0.0 K/mm3 07/27/17 18:26 WBC Morphology Not Reportable 07/27/17 18:26 Hypersegmented Neuts Not Reportable 07/27/17 18:26 Hyposegmented Neuts Not Reportable 07/27/17 18:26 Hypogranular Neuts Not Reportable 07/27/17 18:26 Smudge Cells Not Reportable 07/27/17 18:26 Toxic Granulation Not Reportable 07/27/17 18:26 Toxic Vacuolation Not Reportable 07/27/17 18:26 Dohle Bodies Not Reportable 07/27/17 18:26 Pelger-Huet Anomaly Not Reportable 07/27/17 18:26 [place] Rods Not Reportable 07/27/17 18:26 Platelet Estimate Consistent w auto 07/27/17 18:26 Clumped Platelets Not Reportable 07/27/17 18:26 Plt Clumps, EDTA Not Reportable 07/27/17 18:26 Large Platelets Not Reportable 07/27/17 18:26 Giant Platelets Not Reportable 07/27/17 18:26 Platelet Satelliting Not Reportable 07/27/17 18:26 Plt Morphology Comment Not Reportable 07/27/17 18:26 RBC Morphology Not Reportable 07/27/17 18:26 Dimorphic RBCs Not Reportable 07/27/17 18:26 Polychromasia Not Reportable 07/27/17 18:26 Hypochromasia Not Reportable 07/27/17 18:26 Poikilocytosis Not Reportable 07/27/17 18:26 Anisocytosis Rare 07/27/17 18:26 Microcytosis Not Reportable 07/27/17 18:26 Macrocytosis Not Reportable 07/27/17 18:26 Spherocytes Not Reportable 07/27/17 18:26 Pappenheimer Bodies Not Reportable 07/27/17 18:26 Sickle Cells Not Reportable 07/27/17 18:26 Target Cells Not Reportable 07/27/17 18:26 Tear Drop Cells Not Reportable 07/27/17 18:26 Ovalocytes Not Reportable 07/27/17 18:26 Helmet Cells Not Reportable 07/27/17 18:26 [place] Bodies Not Reportable 07/27/17 18:26 [place] Rings Not Reportable 07/27/17 18:26 [place] Cells Not Reportable 07/27/17 18:26 Bite Cells Not Reportable 07/27/17 18:26 Crenated Cell Not Reportable 07/27/17 18:26 Elliptocytes Not Reportable 07/27/17 18:26 Acanthocytes (Spur) Not Reportable 07/27/17 18:26 Rouleaux Not Reportable 07/27/17 18:26 Hemoglobin C Crystals Not Reportable 07/27/17 18:26 Schistocytes Not Reportable 07/27/17 18:26 Malaria parasites Not Reportable 07/27/17 18:26 Mina Bodies Not Reportable 07/27/17 18:26 Hem Pathologist Commnt No 07/27/17 18:26 PT 15.6 Sec. (12.2-14.9) H 07/27/17 18:26 INR 1.18 (0.87-1.13) H 07/27/17 18:26 APTT 38.5 Sec. (24.2-36.6) H 07/27/17 18:26 POC ABG pH 7.490 (7.35-7.45) H 08/04/17 10:58 POC ABG pCO2 39.0 (35-45) 08/04/17 10:58 POC ABG pO2 71 (80-105) L 08/04/17 10:58 POC ABG HCO3 29.7 08/04/17 10:58 POC ABG Total CO2 31 08/04/17 10:58 POC ABG O2 Sat 95 08/04/17 10:58 POC ABG Base Excess 6 08/04/17 10:58 FiO2 25 % 08/04/17 10:58 Sodium 148 mmol/L (137-145) H 08/05/17 07:34 Potassium 3.9 mmol/L (3.6-5.0) 08/05/17 07:34 Chloride 107.7 mmol/L (98-107) H 08/05/17 07:34 Carbon Dioxide 27 mmol/L (22-30) 08/05/17 07:34 Anion Gap 17 mmol/L 08/05/17 07:34 BUN 32 mg/dL (9-20) H 08/05/17 07:34 Creatinine 1.1 mg/dL (0.8-1.5) 08/05/17 07:34 Estimated GFR > 60 ml/min 08/05/17 07:34 BUN/Creatinine Ratio 29 % 08/05/17 07:34 Glucose 241 mg/dL (75-100) H 08/05/17 07:34 POC Glucose 206 (70-105) H 08/05/17 12:36 Lactic Acid 1.80 mmol/L (0.7-2.0) 08/03/17 03:29 Calcium 7.6 mg/dL (8.4-10.2) L 08/05/17 07:34 Phosphorus 1.90 mg/dL (2.5-4.5) L 08/05/17 07:34 Magnesium 2.10 mg/dL (1.7-2.3) 08/05/17 07:34 Total Creatine Kinase 434 units/L (55-170) H 07/28/17 05:44 CK-MB (CK-2) 10.8 ng/mL (0.0-4.0) H 07/28/17 05:44 CK-MB (CK-2) Rel Index 2.4 (0-4) 07/28/17 05:44 Troponin T 0.521 ng/mL (0.00-0.029) H* D 07/28/17 05:44 C-Reactive Protein 4.00 mg/dL (0.00-1.30) H 08/01/17 19:42 Serum Total Protein 4.9 g/dL (6.1-8.1) L 07/29/17 Unknown Albumin 2.9 g/dL (3.8-4.8) L 07/29/17 Unknown Gtony-9-Jhubfbjjx 0.4 g/dL (0.2-0.3) H 07/29/17 Unknown Ismvf-5-Baptxfbew 0.6 g/dL (0.5-0.9) 07/29/17 Unknown Beta Globulins 0.2 g/dL (0.2-0.5) 07/29/17 Unknown Gamma Globulins 0.5 g/dL (0.8-1.7) L 07/29/17 Unknown Abnorm Protein Band 1 see below 07/29/17 Unknown PEP Interpretation see below H 07/29/17 Unknown Triglycerides 190 mg/dL (2-149) H 07/27/17 18:26 Cholesterol 93 mg/dL (50-199) 07/27/17 18:26 LDL Cholesterol Direct 34 mg/dL (50-130) L 07/27/17 18:26 HDL Cholesterol 21 mg/dL (40-59) L 07/27/17 18:26 Cholesterol/HDL Ratio 4.42 % 07/27/17 18:26 Urine Color Yellow (Yellow) 08/01/17 19:45 Urine Turbidity Clear (Clear) 08/01/17 19:45 Urine pH 6.0 (5.0-7.0) 08/01/17 19:45 Ur Specific Barre 1.018 (1.003-1.030) 08/01/17 19:45 Urine Protein 30 mg/dl mg/dL (Negative) 08/01/17 19:45 Urine Glucose (UA) 50 mg/dL (Negative) 08/01/17 19:45 Urine Ketones Neg mg/dL (Negative) 08/01/17 19:45 Urine Blood Mod (Negative) 08/01/17 19:45 Urine Nitrite Neg (Negative) 08/01/17 19:45 Ur Reducing Substances Not Reportable 07/27/17 22:46 Urine Bilirubin Neg (Negative) 08/01/17 19:45 Urine Ictotest Not Reportable 07/27/17 22:46 Urine Urobilinogen < 2.0 mg/dL (<2.0) 08/01/17 19:45 Ur Leukocyte Esterase Neg (Negative) 08/01/17 19:45 Urine WBC (Auto) 1.0 /HPF (0.0-6.0) 08/01/17 19:45 Urine RBC (Auto) 2.0 /HPF (0.0-6.0) 08/01/17 19:45 U Epithel Cells (Auto) < 1.0 /HPF (0-13.0) 08/01/17 19:45 Urine Bacteria (Auto) 1+ /HPF (Negative) 07/27/17 22:46 Amorphous Crystals Few 07/28/17 16:20 Urine Mucus Few /HPF 08/01/17 19:45 Urine Yeast (Budding) Few /HPF 07/28/17 16:20 Urine Eosinophils None seen (None Seen) 07/28/17 16:20 Urine Creatinine 58.4 mg/dL (0.1-20.0) H 07/28/17 16:20 Urine Sodium 94 mmol/L 07/28/17 16:20 Fraction Sodium Excret 2.6 07/28/17 16:20 Vancomycin Trough 7.4 ug/mL (5.0-20.0) 08/03/17 08:52 Urine Opiates Screen Presumptive negative 07/27/17 22:46 Urine Methadone Screen Presumptive negative 07/27/17 22:46 Ur Barbiturates Screen Presumptive negative 07/27/17 22:46 Ur Phencyclidine Scrn Presumptive negative 07/27/17 22:46 Ur Amphetamines Screen Presumptive negative 07/27/17 22:46 U Benzodiazepines Scrn Presumptive negative 07/27/17 22:46 Urine Cocaine Screen Presumptive negative 07/27/17 22:46 U Marijuana (THC) Screen Presumptive negative 07/27/17 22:46 Drugs of Abuse Note Disclamer 07/27/17 22:46 Proteinase 3 (PR3) Ab <1.0 AI (<1.0) 07/28/17 16:00 Myeloperoxidase Ab <1.0 AI (<1.0) 07/28/17 16:00 Double Strand DNA Ab <1 IU/mL (<=4) 07/28/17 16:00 Complement C3 67 mg/dL (90-180) L 07/28/17 16:00 Complement C4 14 mg/dL (16-47) L 07/28/17 16:00 Hepatitis A IgM Ab Non-reactive (NonReactive) 07/28/17 16:00 Hep Bs Antigen Non-reactive (Negative) 07/28/17 16:00 Hep B Core IgM Ab Non-reactive (NonReactive) 07/28/17 16:00 Hepatitis C Antibody Non-reactive (NonReactive) 07/28/17 16:00 Urine Legionella Ag Not detected (Not Detected) 08/01/17 19:45 Miscellaneous Test Flexitest 1 08/01/17 19:45 Blood Type A POSITIVE 07/27/17 18:24 Antibody Screen Negative 07/27/17 18:24
[2017-08-05] MEDS: D5W 1,000 ML IV SCH (21:14)
[2017-08-05] MEDS: NOVOLOG SUB-Q SCH (22:42)
[2017-08-06] MEDS: ZOSYN/NS 3.375GM/50ML 3.375 GM/50 ML BAG IV SCH ×5 (00:10→18:30)
[2017-08-06 05:43] LABS: Basophils % (Auto) 0.1 % (0.0-1.8); Eosinophils # (Auto) 0.2 K/mm3 (0.0-0.4); Eosinophils % (Auto) 1.3 % (0.0-4.3); Hemoglobin 11.6 gm/dl (11.8-15.2); Lymphocytes # (Auto) 0.9 K/mm3 (1.2-5.4); Lymphocytes % (Auto) 5.8 % (13.4-35.0); Mean Corpuscular HGB Conc 32 % (32-34); Mean Corpuscular Hemoglobin 29 pg (28-32); Mean Corpuscular Volume 89 fl (84-94); Monocytes # (Auto) 1.5 K/mm3 (0.0-0.8); Monocytes % (Auto) 9.3 % (0.0-7.3); Platelet Count 182 K/mm3 (140-440); Red Blood Count 4.06 M/mm3 (3.65-5.03); Red Cell Distribution Width 14.3 % (13.2-15.2)
[2017-08-06 06:11] LABS: BUN/Creatinine Ratio 30; Blood Urea Nitrogen 30 mg/dL (9-20); Hemolysis Index 51
[2017-08-06] MEDS: PEPCID IV SCH ×2 (10:01→21:37)
[2017-08-06] MEDS: CORDARONE PO SCH ×2 (10:01→23:50)
[2017-08-06] MEDS: COREG PO SCH ×2 (10:01→23:51)
[2017-08-06] MEDS: BABY ASPIRIN FEEDTUBE SCH (10:01)
[2017-08-06] MEDS: ZESTRIL PO SCH (10:01)
[2017-08-06] MEDS: D5W 1,000 ML IV SCH (11:23)
--- NOTE | 2017-08-06 12:10 | Progress Note ---
Assessment and Plan - Patient Problems (1) Cardiac arrest Current Visit: Yes Status: Acute Plan to address problem: Patient is status post out of hospital cardiopulmonary arrest. Cardiac arrest was manifested by ventricular fibrillation. Post resuscitation, has remained stable sinus rhythm on IV and now oral amiodarone. He has a history of coronary artery disease, previous coronary artery bypass, ischemic cardiomyopathy. He is reported to have declined a recommendation for prophylactic ICD by his doctors at [facility]. We'll continue supportive care for his hemodynamics and continue anti-ischemic cardiac medications as tolerated. Neurology consultation and follow-up is in place for his neuro status assessment. Subjective Date of service: 08/06/17 Principal diagnosis: cardiac arrest at home. Intubated and unresponcsive Interval history: Patient is unresponsive, on the vent, stable sinus rhythm on bus driver/monitor. Objective Vital Signs Temp Pulse Resp Resp BP Pulse Ox 08/06/17 12:00 97.8 F 08/06/17 11:45 51 L 16 148/55 97 08/06/17 10:27 53 L 148/55 97 08/06/17 08:00 98.3 F 08/06/17 05:56 97 08/06/17 05:45 53 L 16 148/55 97 08/06/17 05:31 51 L 16 148/55 96 08/06/17 05:15 58 L 16 148/55 95 08/06/17 05:01 60 19 148/55 94 08/06/17 04:55 59 L 144/68 96 08/06/17 04:45 53 L 16 144/68 95 08/06/17 04:31 58 L 18 144/68 96 08/06/17 04:15 59 L 15 144/68 96 08/06/17 04:01 55 L 16 144/68 96 08/06/17 04:00 98.5 F 08/06/17 03:45 53 L 16 154/80 96 08/06/17 03:31 71 19 154/80 98 08/06/17 03:15 53 L 16 154/80 96 08/06/17 03:01 51 L 16 154/80 94 08/06/17 02:45 53 L 16 139/77 95 08/06/17 02:31 51 L 16 139/77 95 08/06/17 02:15 51 L 16 139/77 95 08/06/17 02:01 52 L 16 129/85 96 08/06/17 02:00 53 L 08/06/17 01:45 53 L 16 139/77 94 08/06/17 01:30 54 L 15 139/77 96 08/06/17 01:16 53 L 16 139/77 95 08/06/17 01:00 51 L 15 142/76 95 08/06/17 00:46 59 L 16 142/76 95 08/06/17 00:30 50 L 16 142/76 95 08/06/17 00:16 55 L 16 142/76 94 08/06/17 00:10 58 L 17 97 08/06/17 00:00 98.1 F 52 L 16 132/77 94 08/05/17 23:46 52 L 16 132/77 95 08/05/17 23:36 52 L 132/77 96 08/05/17 23:30 54 L 16 132/77 96 08/05/17 23:16 54 L 16 132/77 95 08/05/17 23:02 51 L 16 132/77 97 08/05/17 23:00 51 L 16 132/77 95 08/05/17 22:46 55 L 16 133/79 96 08/05/17 22:30 56 L 16 133/79 95 08/05/17 22:16 55 L 16 137/67 95 08/05/17 22:00 56 L 16 133/79 95 08/05/17 21:46 61 17 133/79 96 08/05/17 21:30 53 L 16 133/79 96 08/05/17 21:16 54 L 16 133/79 97 08/05/17 21:12 55 L 133/79 08/05/17 21:10 58 L 97 08/05/17 21:00 55 L 16 146/84 96 08/05/17 20:46 60 18 146/84 96 08/05/17 20:30 55 L 15 146/84 97 08/05/17 20:16 54 L 16 146/84 96 08/05/17 20:00 97.3 F L 54 L 16 139/85 96 08/05/17 19:46 57 L 16 139/85 97 08/05/17 19:45 54 L 139/85 96 08/05/17 19:30 59 L 16 16 139/85 97 08/05/17 19:16 57 L 21 139/85 95 08/05/17 19:00 60 22 146/77 97 08/05/17 18:46 60 18 146/77 96 08/05/17 18:30 60 22 146/77 96 08/05/17 18:16 57 L 20 146/77 96 08/05/17 18:00 56 L 21 145/75 96 08/05/17 17:46 58 L 21 145/75 96 08/05/17 17:30 57 L 21 145/75 96 08/05/17 17:16 54 L 21 152/85 96 08/05/17 17:00 56 L 21 145/75 96 08/05/17 16:46 54 L 19 145/75 97 08/05/17 16:30 61 23 145/75 97 08/05/17 16:16 54 L 19 145/75 96 08/05/17 16:00 97.9 F 54 L 19 156/85 95 08/05/17 15:46 55 L 21 156/85 96 08/05/17 15:30 54 L 20 156/85 96 08/05/17 15:16 56 L 19 156/85 96 08/05/17 15:00 54 L 21 146/87 94 08/05/17 14:46 55 L 21 156/85 97 08/05/17 14:30 57 L 21 156/85 97 08/05/17 14:26 55 L 21 156/85 96 08/05/17 14:16 54 L 21 156/85 97 08/05/17 14:00 53 L 20 147/88 96 08/05/17 13:46 53 L 20 147/88 96 08/05/17 13:30 53 L 19 147/88 97 08/05/17 13:16 53 L 20 147/88 97 08/05/17 13:00 54 L 20 155/90 95 08/05/17 12:46 52 L 21 147/88 97 08/05/17 12:30 55 L 20 147/88 96 08/05/17 12:16 53 L 20 147/88 96 - Physical Examination General: Other (intubated on the vent) Neck: Positive: neck supple, trachea midline. Negative: JVD/HJR, Masses Cardiac: Positive: Reg Rate and Rhythm Lungs: Positive: Decreased Breath Sounds Neuro: Positive: Other (unresponsive on the vent) Abdomen: Positive: Soft Skin: Positive: Clear Extremities: Absent: edema - Labs and Meds CBC 08/06/17 Range/Units 04:34 WBC 16.2 H (4.5-11.0) K/mm3 RBC 4.06 (3.65-5.03) M/mm3 Hgb 11.6 L (11.8-15.2) gm/dl Hct 36.0 (35.5-45.6) % Plt Count 182 (140-440) K/mm3 Lymph # 0.9 L (1.2-5.4) K/mm3 Bandera # 1.5 H (0.0-0.8) K/mm3 Eos # 0.2 (0.0-0.4) K/mm3 Baso # 0.0 (0.0-0.1) K/mm3 Comprehensive Metabolic Panel 08/06/17 Range/Units 04:34 Sodium 144 (137-145) mmol/L Potassium 4.4 (3.6-5.0) mmol/L Chloride 103.7 (98-107) mmol/L Carbon Dioxide 26 (22-30) mmol/L BUN 30 H (9-20) mg/dL Creatinine 1.0 (0.8-1.5) mg/dL Glucose 241 H (75-100) mg/dL Calcium 8.0 L (8.4-10.2) mg/dL - Imaging and Cardiology EKG: image reviewed
--- NOTE | 2017-08-06 13:02 | Consultation ---
History of Present Illness Consult date: 08/06/17 History of present illness: last EEG was no showing active seizure activity, EEG is slow plan repeat CT of the head on tuesday plan further w.u Past History Past Medical History: CAD Social history: no significant social history (denies smoking or drinking) Family history: no significant family history (negative for kidney disease) Medications and Allergies Allergies Allergy/AdvReac Type Severity Reaction Status Date / Time acetaminophen [From Vicodin] Allergy Unknown Verified 07/27/17 18:13 hydrocodone [From Vicodin] Allergy Unknown Verified 07/27/17 18:13 zolpidem [From Ambien] Allergy Unknown Verified 07/27/17 18:13 Home Medications Medication Instructions Recorded Confirmed Last Taken Type Aspirin [Aspirin BABY CHEW TAB] 1 tab PO QDAY 07/29/17 07/29/17 07/25/17 History AtorvaSTATin [Lipitor] 40 mg PO QHS 07/29/17 07/29/17 07/25/17 History Clopidogrel [Plavix] 75 mg PO QDAY 07/29/17 07/29/17 07/25/17 History ISOSORBIDE MONOnitrate [Imdur ER] 30 mg PO DAILY 07/29/17 07/29/17 07/25/17 History Spironolactone [Aldactone] 25 mg PO QDAY 07/29/17 07/29/17 07/25/17 History Tamsulosin HCl [Flomax] 1 tab PO QDAY 07/29/17 07/29/17 07/25/17 History Carvedilol [Coreg] 12.5 mg PO BID 07/30/17 07/30/17 07/27/17 09:00 History Sacubitril/Valsartan [Entresto 49 49 - 51 mg PO BID 07/30/17 07/30/17 07/27/17 09:00 History mg-51 mg Tablet] Active Meds: Active Medications Acetaminophen (Tylenol) 650 mg PO Q6HR PRN PRN Reason: Fever Last Admin: 08/01/17 13:51 Dose: 650 mg Albuterol (Proventil) 2.5 mg IH Q3HRT PRN PRN Reason: Shortness Of Breath Amiodarone HCl (Cordarone) 200 mg PO BID DANIEL Last Admin: 08/06/17 10:01 Dose: 200 mg Lipase/Protease/Amylase (Sarah Cuenca 10,500 Unit) 1 each FEEDTUBE PRN PRN PRN Reason: For Clogged Feeding Tube Last Admin: 07/31/17 10:07 Dose: 1 each Aspirin (Baby Aspirin) 81 mg FEEDTUBE QDAY [facility] Last Admin: 08/06/17 10:01 Dose: 81 mg Carvedilol (Coreg) 3.125 mg PO BID [facility] Last Admin: 08/06/17 10:01 Dose: 3.125 mg Enoxaparin Sodium (Lovenox) 40 mg SUB-Q QDAY@2200 [facility] Last Admin: 08/05/17 21:12 Dose: 40 mg Famotidine (Pepcid) 20 mg IV BID [facility] Last Admin: 08/06/17 10:01 Dose: 20 mg Hydrophilic Ointment (Vaseline Lip Therapy) 1 applic TP Q2HR PRN PRN Reason: Dry Lips Vasopressin 20 unit/ Sodium (Chloride) 101 mls @ 9.09 mls/hr IV TITR DANIEL; 0.03 UNITS/MIN PRN Reason: Protocol Last Titration: 07/30/17 09:21 Dose: 0 units/min, 0 mls/hr Norepinephrine (Levophed Drip 4 Mg/Ns 250 Ml) 4 mg in 250 mls @ 7.5 mls/hr IV TITR DANIEL; 2 MCG/MIN PRN Reason: Protocol Piperacillin Sod/Tazobactam Sod (Zosyn/Ns 3.375gm/50ml) 3.375 gm in 50 mls @ 100 mls/hr IV Q6HR DANIEL PRN Reason: Protocol Last Admin: 08/06/17 05:43 Dose: 100 mls/hr Vancomycin HCl 1,250 mg/ (Sodium Chloride) 262.5 mls @ 166.667 mls/hr IV Q24H [facility] Last Admin: 08/04/17 13:46 Dose: 166.667 mls/hr Dextrose (D5w) 1,000 mls @ 75 mls/hr IV DIRECT [facility] Last Admin: 08/06/17 11:23 Dose: 75 mls/hr Insulin Aspart (Novolog) 0 units SUB-Q QHS DANIEL PRN Reason: Protocol Last Admin: 08/05/17 22:42 Dose: 2 units Insulin Human Regular (Novolin R) 0 units SUB-Q Q6HR DANIEL PRN Reason: Protocol Last Admin: 08/06/17 05:53 Dose: 2 units Lisinopril (Zestril) 5 mg PO QDAY DANIEL Last Admin: 08/06/17 10:01 Dose: 5 mg Lorazepam (Ativan) 1 mg IV Q4H PRN PRN Reason: seizures/twitching Multi-Ingred Cream/Lotion/Oil/Oint (Artificial Tears Ophth Oint) 1 applic OU Q4HR PRN PRN Reason: Dry Eye(s) Ondansetron HCl (Zofran) 4 mg IV Q8H PRN PRN Reason: N/V unrelieved by Reglan Simple Syrup (Simple Syrup) 15 ml FEEDTUBE PRN PRN PRN Reason: Hypoglycemia Simple Syrup (Simple Syrup) 30 ml FEEDTUBE PRN PRN PRN Reason: Hypoglycemia Sodium Chloride (Nacl 0.9% 500 Ml) 1 ml IV DIRECT DANIEL Vancomycin HCl (Vancomycin Pharmacy To Dose) 1 each IV PKCONSULT DANIEL PRN Reason: Protocol Physical Examination - Vital Signs Vital Signs: Vital Signs Pulse Resp 28 L 12 07/27/17 18:02 07/27/17 18:02 Results - Laboratory Findings CBC and BMP: 08/06/17 04:34 08/06/17 04:34 Abnormal Lab Findings: Abnormal Labs 07/27/17 07/27/17 07/27/17 18:26 18:26 18:26 WBC 15.6 H Hgb Hct MCH MCHC Plt Count 115 L Lymph % (Auto) [place] % (Auto) Lymph # [place] # Seg Neutrophils % Lymphocytes % (Manual) 36.0 H Seg Neutrophils # Seg Neutrophils # Man 8.9 H Lymphocytes # (Manual) 5.6 H Monocytes # (Manual) 1.1 H PT 15.6 H INR 1.18 H APTT 38.5 H POC ABG pH POC ABG pCO2 POC ABG pO2 Sodium Potassium Chloride Carbon Dioxide 21 L BUN Creatinine Glucose 252 H POC Glucose Lactic Acid Calcium 7.7 L Phosphorus Total Creatine Kinase CK-MB (CK-2) CK-MB (CK-2) Rel Index Troponin T 0.090 H C-Reactive Protein Serum Total Protein Albumin Qhjdf-0-Umvwasihn Gamma Globulins PEP Interpretation Triglycerides 190 H LDL Cholesterol Direct 34 L HDL Cholesterol 21 L Urine WBC (Auto) Urine Creatinine Complement C3 Complement C4 07/27/17 07/27/17 07/27/17 19:02 19:25 21:43 WBC Hgb Hct MCH MCHC Plt Count Lymph % (Auto) [place] % (Auto) Lymph # [place] # Seg Neutrophils % Lymphocytes % (Manual) Seg Neutrophils # Seg Neutrophils # Man Lymphocytes # (Manual) Monocytes # (Manual) PT INR APTT POC ABG pH 7.155 L POC ABG pCO2 47.7 H POC ABG pO2 229 H Sodium Potassium Chloride Carbon Dioxide BUN Creatinine Glucose POC Glucose Lactic Acid 6.00 H* Calcium Phosphorus Total Creatine Kinase CK-MB (CK-2) 4.8 H CK-MB (CK-2) Rel Index Troponin T 0.149 H* D C-Reactive Protein Serum Total Protein Albumin Hifmp-7-Gthalnhna Gamma Globulins PEP Interpretation Triglycerides LDL Cholesterol Direct HDL Cholesterol Urine WBC (Auto) Urine Creatinine Complement C3 Complement C4 07/27/17 07/27/17 07/28/17 22:47 22:47 01:47 WBC Hgb Hct MCH MCHC Plt Count Lymph % (Auto) [place] % (Auto) Lymph # [place] # Seg Neutrophils % Lymphocytes % (Manual) Seg Neutrophils # Seg Neutrophils # Man Lymphocytes # (Manual) Monocytes # (Manual) PT INR APTT POC ABG pH POC ABG pCO2 POC ABG pO2 Sodium Potassium Chloride Carbon Dioxide BUN Creatinine Glucose POC Glucose 199 H Lactic Acid 2.40 H* Calcium Phosphorus Total Creatine Kinase 222 H CK-MB (CK-2) 9.4 H CK-MB (CK-2) Rel Index 4.2 H Troponin T 0.852 H* D C-Reactive Protein Serum Total Protein Albumin Cwaxr-4-Gdliexcqe Gamma Globulins PEP Interpretation Triglycerides LDL Cholesterol Direct HDL Cholesterol Urine WBC (Auto) Urine Creatinine Complement C3 Complement C4 07/28/17 07/28/17 07/28/17 05:29 05:44 05:44 WBC Hgb Hct MCH MCHC Plt Count Lymph % (Auto) [place] % (Auto) Lymph # [place] # Seg Neutrophils % Lymphocytes % (Manual) Seg Neutrophils # Seg Neutrophils # Man Lymphocytes # (Manual) Monocytes # (Manual) PT INR APTT POC ABG pH 7.268 L POC ABG pCO2 34.8 L POC ABG pO2 Sodium 146 H Potassium 5.1 H D Chloride 113.3 H Carbon Dioxide 18 L BUN 29 H Creatinine 2.0 H D Glucose 194 H POC Glucose Lactic Acid 2.10 H* Calcium 6.8 L Phosphorus Total Creatine Kinase CK-MB (CK-2) CK-MB (CK-2) Rel Index Troponin T C-Reactive Protein Serum Total Protein Albumin Clkqu-6-Tyosgrjza Gamma Globulins PEP Interpretation Triglycerides LDL Cholesterol Direct HDL Cholesterol Urine WBC (Auto) Urine Creatinine Complement C3 Complement C4 07/28/17 07/28/17 07/28/17 05:44 06:30 16:00 WBC 16.9 H Hgb Hct MCH MCHC 31 L Plt Count Lymph % (Auto) 8.4 L [place] % (Auto) 7.5 H Lymph # [place] # 1.3 H Seg Neutrophils % 84.1 H Lymphocytes % (Manual) Seg Neutrophils # 14.2 H Seg Neutrophils # Man Lymphocytes # (Manual) Monocytes # (Manual) PT INR APTT POC ABG pH POC ABG pCO2 POC ABG pO2 Sodium 146 H Potassium Chloride Carbon Dioxide BUN Creatinine 2.4 H Glucose POC Glucose Lactic Acid Calcium Phosphorus Total Creatine Kinase 434 H CK-MB (CK-2) 10.8 H CK-MB (CK-2) Rel Index Troponin T 0.521 H* D C-Reactive Protein Serum Total Protein Albumin Srfrt-5-Zrkpmwilj Gamma Globulins PEP Interpretation Triglycerides LDL Cholesterol Direct HDL Cholesterol Urine WBC (Auto) Urine Creatinine Complement C3 Complement C4 07/28/17 07/28/17 07/28/17 16:00 16:00 16:20 WBC Hgb Hct MCH MCHC Plt Count Lymph % (Auto) [place] % (Auto) Lymph # [place] # Seg Neutrophils % Lymphocytes % (Manual) Seg Neutrophils # Seg Neutrophils # Man Lymphocytes # (Manual) Monocytes # (Manual) PT INR APTT POC ABG pH POC ABG pCO2 POC ABG pO2 Sodium Potassium Chloride Carbon Dioxide BUN Creatinine Glucose POC Glucose Lactic Acid Calcium Phosphorus Total Creatine Kinase CK-MB (CK-2) CK-MB (CK-2) Rel Index Troponin T C-Reactive Protein Serum Total Protein Albumin Rddah-7-Aosluauhz Gamma Globulins PEP Interpretation Triglycerides LDL Cholesterol Direct HDL Cholesterol Urine WBC (Auto) 12.0 H Urine Creatinine Complement C3 67 L Complement C4 14 L 07/28/17 07/29/17 07/29/17 16:20 04:02 05:00 WBC Hgb Hct MCH MCHC Plt Count Lymph % (Auto) [place] % (Auto) Lymph # [place] # Seg Neutrophils % Lymphocytes % (Manual) Seg Neutrophils # Seg Neutrophils # Man Lymphocytes # (Manual) Monocytes # (Manual) PT INR APTT POC ABG pH 7.304 L POC ABG pCO2 31.6 L POC ABG pO2 Sodium Potassium Chloride 111.7 H Carbon Dioxide 18 L BUN 37 H Creatinine 2.1 H Glucose 213 H POC Glucose Lactic Acid Calcium 6.9 L Phosphorus Total Creatine Kinase CK-MB (CK-2) CK-MB (CK-2) Rel Index Troponin T C-Reactive Protein Serum Total Protein Albumin Shtcv-2-Icuflrsgz Gamma Globulins PEP Interpretation Triglycerides LDL Cholesterol Direct HDL Cholesterol Urine WBC (Auto) Urine Creatinine 58.4 H Complement C3 Complement C4 07/29/17 07/29/17 07/30/17 Unknown Unknown 04:07 WBC 14.4 H Hgb Hct MCH MCHC Plt Count 125 L Lymph % (Auto) [place] % (Auto) Lymph # [place] # Seg Neutrophils % Lymphocytes % (Manual) Seg Neutrophils # Seg Neutrophils # Man Lymphocytes # (Manual) Monocytes # (Manual) PT INR APTT POC ABG pH 7.319 L POC ABG pCO2 27.8 L POC ABG pO2 121 H Sodium Potassium Chloride Carbon Dioxide BUN Creatinine Glucose POC Glucose Lactic Acid Calcium Phosphorus Total Creatine Kinase CK-MB (CK-2) CK-MB (CK-2) Rel Index Troponin T C-Reactive Protein Serum Total Protein 4.9 L Albumin 2.9 L Gztcz-8-Mmqvwgpso 0.4 H Gamma Globulins 0.5 L PEP Interpretation see below H Triglycerides LDL Cholesterol Direct HDL Cholesterol Urine WBC (Auto) Urine Creatinine Complement C3 Complement C4 07/30/17 07/30/17 07/30/17 12:43 17:22 23:27 WBC Hgb Hct MCH MCHC Plt Count Lymph % (Auto) [place] % (Auto) Lymph # [place] # Seg Neutrophils % Lymphocytes % (Manual) Seg Neutrophils # Seg Neutrophils # Man Lymphocytes # (Manual) Monocytes # (Manual) PT INR APTT POC ABG pH POC ABG pCO2 POC ABG pO2 Sodium Potassium Chloride Carbon Dioxide BUN Creatinine Glucose POC Glucose 134 H 117 H 173 H Lactic Acid Calcium Phosphorus Total Creatine Kinase CK-MB (CK-2) CK-MB (CK-2) Rel Index Troponin T C-Reactive Protein Serum Total Protein Albumin Vfoou-3-Ucwxxdser Gamma Globulins PEP Interpretation Triglycerides LDL Cholesterol Direct HDL Cholesterol Urine WBC (Auto) Urine Creatinine Complement C3 Complement C4 07/30/17 07/30/17 07/31/17 Unknown Unknown 04:13 WBC 15.6 H Hgb Hct MCH MCHC Plt Count 117 L Lymph % (Auto) [place] % (Auto) Lymph # [place] # Seg Neutrophils % Lymphocytes % (Manual) Seg Neutrophils # Seg Neutrophils # Man Lymphocytes # (Manual) Monocytes # (Manual) PT INR APTT POC ABG pH POC ABG pCO2 26.8 L POC ABG pO2 74 L Sodium 146 H Potassium Chloride 113.8 H Carbon Dioxide 18 L BUN 36 H Creatinine 1.8 H Glucose 177 H POC Glucose Lactic Acid Calcium 6.9 L Phosphorus Total Creatine Kinase CK-MB (CK-2) CK-MB (CK-2) Rel Index Troponin T C-Reactive Protein Serum Total Protein Albumin Odxjk-3-Wetsyiljm Gamma Globulins PEP Interpretation Triglycerides LDL Cholesterol Direct HDL Cholesterol Urine WBC (Auto) Urine Creatinine Complement C3 Complement C4 07/31/17 07/31/17 07/31/17 05:00 05:00 05:01 WBC 18.5 H Hgb Hct MCH MCHC Plt Count 135 L Lymph % (Auto) [place] % (Auto) Lymph # [place] # Seg Neutrophils % Lymphocytes % (Manual) Seg Neutrophils # Seg Neutrophils # Man Lymphocytes # (Manual) Monocytes # (Manual) PT INR APTT POC ABG pH POC ABG pCO2 POC ABG pO2 Sodium 148 H Potassium Chloride 112.8 H Carbon Dioxide 20 L BUN 33 H Creatinine 1.6 H Glucose 188 H POC Glucose 219 H Lactic Acid Calcium 7.1 L Phosphorus Total Creatine Kinase CK-MB (CK-2) CK-MB (CK-2) Rel Index Troponin T C-Reactive Protein Serum Total Protein Albumin Truhw-8-Vbiupoycx Gamma Globulins PEP Interpretation Triglycerides LDL Cholesterol Direct HDL Cholesterol Urine WBC (Auto) Urine Creatinine Complement C3 Complement C4 07/31/17 07/31/17 08/01/17 14:36 17:57 00:02 WBC Hgb Hct MCH MCHC Plt Count Lymph % (Auto) [place] % (Auto) Lymph # [place] # Seg Neutrophils % Lymphocytes % (Manual) Seg Neutrophils # Seg Neutrophils # Man Lymphocytes # (Manual) Monocytes # (Manual) PT INR APTT POC ABG pH POC ABG pCO2 POC ABG pO2 Sodium Potassium Chloride Carbon Dioxide BUN Creatinine Glucose POC Glucose 199 H 216 H 131 H Lactic Acid Calcium Phosphorus Total Creatine Kinase CK-MB (CK-2) CK-MB (CK-2) Rel Index Troponin T C-Reactive Protein Serum Total Protein Albumin Metui-1-Fkjciqpeo Gamma Globulins PEP Interpretation Triglycerides LDL Cholesterol Direct HDL Cholesterol Urine WBC (Auto) Urine Creatinine Complement C3 Complement C4 08/01/17 08/01/17 08/01/17 03:22 04:10 04:10 WBC 19.3 H Hgb Hct MCH MCHC Plt Count 129 L Lymph % (Auto) [place] % (Auto) Lymph # [place] # Seg Neutrophils % Lymphocytes % (Manual) Seg Neutrophils # Seg Neutrophils # Man Lymphocytes # (Manual) Monocytes # (Manual) PT INR APTT POC ABG pH 7.481 H POC ABG pCO2 29.6 L POC ABG pO2 65 L Sodium 148 H Potassium Chloride 113.2 H Carbon Dioxide 21 L BUN 29 H Creatinine Glucose 173 H POC Glucose Lactic Acid Calcium 7.3 L Phosphorus Total Creatine Kinase CK-MB (CK-2) CK-MB (CK-2) Rel Index Troponin T C-Reactive Protein Serum Total Protein Albumin Cbvmr-0-Nxoihzqwp Gamma Globulins PEP Interpretation Triglycerides LDL Cholesterol Direct HDL Cholesterol Urine WBC (Auto) Urine Creatinine Complement C3 Complement C4 08/01/17 08/01/17 08/01/17 05:18 11:55 18:13 WBC Hgb Hct MCH MCHC Plt Count Lymph % (Auto) [place] % (Auto) Lymph # [place] # Seg Neutrophils % Lymphocytes % (Manual) Seg Neutrophils # Seg Neutrophils # Man Lymphocytes # (Manual) Monocytes # (Manual) PT INR APTT POC ABG pH POC ABG pCO2 POC ABG pO2 Sodium Potassium Chloride Carbon Dioxide BUN Creatinine Glucose POC Glucose 179 H 174 H 189 H Lactic Acid Calcium Phosphorus Total Creatine Kinase CK-MB (CK-2) CK-MB (CK-2) Rel Index Troponin T C-Reactive Protein Serum Total Protein Albumin Kcowd-2-Lwqofecyh Gamma Globulins PEP Interpretation Triglycerides LDL Cholesterol Direct HDL Cholesterol Urine WBC (Auto) Urine Creatinine Complement C3 Complement C4 08/01/17 08/01/17 08/02/17 19:42 22:01 00:01 WBC Hgb Hct MCH MCHC Plt Count Lymph % (Auto) [place] % (Auto) Lymph # [place] # Seg Neutrophils % Lymphocytes % (Manual) Seg Neutrophils # Seg Neutrophils # Man Lymphocytes # (Manual) Monocytes # (Manual) PT INR APTT POC ABG pH POC ABG pCO2 POC ABG pO2 Sodium Potassium Chloride Carbon Dioxide BUN Creatinine Glucose POC Glucose 165 H 129 H Lactic Acid Calcium Phosphorus Total Creatine Kinase CK-MB (CK-2) CK-MB (CK-2) Rel Index Troponin T C-Reactive Protein 4.00 H Serum Total Protein Albumin Nfele-9-Ubtyvbrxl Gamma Globulins PEP Interpretation Triglycerides LDL Cholesterol Direct HDL Cholesterol Urine WBC (Auto) Urine Creatinine Complement C3 Complement C4 08/02/17 08/02/17 08/02/17 03:40 04:10 06:00 WBC Hgb Hct MCH MCHC Plt Count Lymph % (Auto) [place] % (Auto) Lymph # [place] # Seg Neutrophils % Lymphocytes % (Manual) Seg Neutrophils # Seg Neutrophils # Man Lymphocytes # (Manual) Monocytes # (Manual) PT INR APTT POC ABG pH 7.474 H POC ABG pCO2 33.8 L POC ABG pO2 73 L Sodium 148 H Potassium Chloride 109.3 H Carbon Dioxide BUN 31 H Creatinine Glucose 168 H POC Glucose 172 H Lactic Acid Calcium 6.8 L Phosphorus Total Creatine Kinase CK-MB (CK-2) CK-MB (CK-2) Rel Index Troponin T C-Reactive Protein Serum Total Protein Albumin Jmmee-3-Pojavkhnj Gamma Globulins PEP Interpretation Triglycerides LDL Cholesterol Direct HDL Cholesterol Urine WBC (Auto) Urine Creatinine Complement C3 Complement C4 08/02/17 08/02/17 08/02/17 07:09 11:25 17:46 WBC 20.1 H Hgb 11.7 L Hct MCH MCHC Plt Count 127 L Lymph % (Auto) [place] % (Auto) Lymph # [place] # Seg Neutrophils % Lymphocytes % (Manual) Seg Neutrophils # Seg Neutrophils # Man Lymphocytes # (Manual) Monocytes # (Manual) PT INR APTT POC ABG pH POC ABG pCO2 POC ABG pO2 Sodium Potassium Chloride Carbon Dioxide BUN Creatinine Glucose POC Glucose 159 H 171 H Lactic Acid Calcium Phosphorus Total Creatine Kinase CK-MB (CK-2) CK-MB (CK-2) Rel Index Troponin T C-Reactive Protein Serum Total Protein Albumin Ftcet-0-Ixhemuuiu Gamma Globulins PEP Interpretation Triglycerides LDL Cholesterol Direct HDL Cholesterol Urine WBC (Auto) Urine Creatinine Complement C3 Complement C4 08/02/17 08/03/17 08/03/17 22:30 00:05 03:29 WBC Hgb Hct MCH MCHC Plt Count Lymph % (Auto) [place] % (Auto) Lymph # [place] # Seg Neutrophils % Lymphocytes % (Manual) Seg Neutrophils # Seg Neutrophils # Man Lymphocytes # (Manual) Monocytes # (Manual) PT INR APTT POC ABG pH POC ABG pCO2 POC ABG pO2 Sodium 148 H Potassium Chloride 109.1 H Carbon Dioxide BUN 32 H Creatinine Glucose 179 H POC Glucose 179 H 199 H Lactic Acid Calcium 6.9 L Phosphorus Total Creatine Kinase CK-MB (CK-2) CK-MB (CK-2) Rel Index Troponin T C-Reactive Protein Serum Total Protein Albumin Rgzcj-9-Cmfubkyov Gamma Globulins PEP Interpretation Triglycerides LDL Cholesterol Direct HDL Cholesterol Urine WBC (Auto) Urine Creatinine Complement C3 Complement C4 08/03/17 08/03/17 08/03/17 03:29 05:40 06:01 WBC 19.9 H Hgb Hct MCH MCHC Plt Count 130 L Lymph % (Auto) 7.0 L [place] % (Auto) 11.1 H Lymph # [place] # 2.2 H Seg Neutrophils % 81.4 H Lymphocytes % (Manual) Seg Neutrophils # 16.2 H Seg Neutrophils # Man Lymphocytes # (Manual) Monocytes # (Manual) PT INR APTT POC ABG pH 7.468 H POC ABG pCO2 POC ABG pO2 70 L Sodium Potassium Chloride Carbon Dioxide BUN Creatinine Glucose POC Glucose 179 H Lactic Acid Calcium Phosphorus Total Creatine Kinase CK-MB (CK-2) CK-MB (CK-2) Rel Index Troponin T C-Reactive Protein Serum Total Protein Albumin Ldhky-5-Waudljafy Gamma Globulins PEP Interpretation Triglycerides LDL Cholesterol Direct HDL Cholesterol Urine WBC (Auto) Urine Creatinine Complement C3 Complement C4 08/03/17 08/03/17 08/04/17 11:43 17:34 00:02 WBC Hgb Hct MCH MCHC Plt Count Lymph % (Auto) [place] % (Auto) Lymph # [place] # Seg Neutrophils % Lymphocytes % (Manual) Seg Neutrophils # Seg Neutrophils # Man Lymphocytes # (Manual) Monocytes # (Manual) PT INR APTT POC ABG pH POC ABG pCO2 POC ABG pO2 Sodium Potassium Chloride Carbon Dioxide BUN Creatinine Glucose POC Glucose 166 H 193 H 191 H Lactic Acid Calcium Phosphorus Total Creatine Kinase CK-MB (CK-2) CK-MB (CK-2) Rel Index Troponin T C-Reactive Protein Serum Total Protein Albumin Efyab-9-Btqjthsek Gamma Globulins PEP Interpretation Triglycerides LDL Cholesterol Direct HDL Cholesterol Urine WBC (Auto) Urine Creatinine Complement C3 Complement C4 08/04/17 08/04/17 08/04/17 05:18 05:44 05:44 WBC 16.8 H Hgb 11.7 L Hct MCH 27 L MCHC Plt Count Lymph % (Auto) 5.0 L [place] % (Auto) 9.5 H Lymph # 0.8 L [place] # 1.6 H Seg Neutrophils % 84.7 H Lymphocytes % (Manual) Seg Neutrophils # 14.2 H Seg Neutrophils # Man Lymphocytes # (Manual) Monocytes # (Manual) PT INR APTT POC ABG pH POC ABG pCO2 POC ABG pO2 Sodium 148 H Potassium Chloride 108.1 H Carbon Dioxide BUN 31 H Creatinine Glucose 181 H POC Glucose 173 H Lactic Acid Calcium 7.6 L Phosphorus Total Creatine Kinase CK-MB (CK-2) CK-MB (CK-2) Rel Index Troponin T C-Reactive Protein Serum Total Protein Albumin Gjrra-6-Sbfonsxel Gamma Globulins PEP Interpretation Triglycerides LDL Cholesterol Direct HDL Cholesterol Urine WBC (Auto) Urine Creatinine Complement C3 Complement C4 08/04/17 08/04/17 08/04/17 10:58 12:34 17:35 WBC Hgb Hct MCH MCHC Plt Count Lymph % (Auto) [place] % (Auto) Lymph # [place] # Seg Neutrophils % Lymphocytes % (Manual) Seg Neutrophils # Seg Neutrophils # Man Lymphocytes # (Manual) Monocytes # (Manual) PT INR APTT POC ABG pH 7.490 H POC ABG pCO2 POC ABG pO2 71 L Sodium Potassium Chloride Carbon Dioxide BUN Creatinine Glucose POC Glucose 191 H 188 H Lactic Acid Calcium Phosphorus Total Creatine Kinase CK-MB (CK-2) CK-MB (CK-2) Rel Index Troponin T C-Reactive Protein Serum Total Protein Albumin Krrmj-8-Lxuvoafzc Gamma Globulins PEP Interpretation Triglycerides LDL Cholesterol Direct HDL Cholesterol Urine WBC (Auto) Urine Creatinine Complement C3 Complement C4 08/05/17 08/05/17 08/05/17 00:00 05:32 07:34 WBC 14.4 H Hgb 10.6 L Hct 32.3 L MCH MCHC Plt Count Lymph % (Auto) 6.7 L [place] % (Auto) 8.6 H Lymph # 1.0 L [place] # 1.2 H Seg Neutrophils % 81.8 H Lymphocytes % (Manual) Seg Neutrophils # 11.8 H Seg Neutrophils # Man Lymphocytes # (Manual) Monocytes # (Manual) PT INR APTT POC ABG pH POC ABG pCO2 POC ABG pO2 Sodium Potassium Chloride Carbon Dioxide BUN Creatinine Glucose POC Glucose 216 H 240 H Lactic Acid Calcium Phosphorus Total Creatine Kinase CK-MB (CK-2) CK-MB (CK-2) Rel Index Troponin T C-Reactive Protein Serum Total Protein Albumin Wznqi-4-Ofurhzeqv Gamma Globulins PEP Interpretation Triglycerides LDL Cholesterol Direct HDL Cholesterol Urine WBC (Auto) Urine Creatinine Complement C3 Complement C4 08/05/17 08/05/17 08/05/17 07:34 12:36 17:51 WBC Hgb Hct MCH MCHC Plt Count Lymph % (Auto) [place] % (Auto) Lymph # [place] # Seg Neutrophils % Lymphocytes % (Manual) Seg Neutrophils # Seg Neutrophils # Man Lymphocytes # (Manual) Monocytes # (Manual) PT INR APTT POC ABG pH POC ABG pCO2 POC ABG pO2 Sodium 148 H Potassium Chloride 107.7 H Carbon Dioxide BUN 32 H Creatinine Glucose 241 H POC Glucose 206 H 190 H Lactic Acid Calcium 7.6 L Phosphorus 1.90 L Total Creatine Kinase CK-MB (CK-2) CK-MB (CK-2) Rel Index Troponin T C-Reactive Protein Serum Total Protein Albumin Tcgzy-6-Yehlklljp Gamma Globulins PEP Interpretation Triglycerides LDL Cholesterol Direct HDL Cholesterol Urine WBC (Auto) Urine Creatinine Complement C3 Complement C4 08/05/17 08/06/17 08/06/17 22:11 00:35 04:34 WBC 16.2 H Hgb 11.6 L Hct MCH MCHC Plt Count Lymph % (Auto) 5.8 L [place] % (Auto) 9.3 H Lymph # 0.9 L [place] # 1.5 H Seg Neutrophils % 83.5 H Lymphocytes % (Manual) Seg Neutrophils # 13.5 H Seg Neutrophils # Man Lymphocytes # (Manual) Monocytes # (Manual) PT INR APTT POC ABG pH POC ABG pCO2 POC ABG pO2 Sodium Potassium Chloride Carbon Dioxide BUN Creatinine Glucose POC Glucose 169 H 191 H Lactic Acid Calcium Phosphorus Total Creatine Kinase CK-MB (CK-2) CK-MB (CK-2) Rel Index Troponin T C-Reactive Protein Serum Total Protein Albumin Uspnc-3-Pymsfezsb Gamma Globulins PEP Interpretation Triglycerides LDL Cholesterol Direct HDL Cholesterol Urine WBC (Auto) Urine Creatinine Complement C3 Complement C4 08/06/17 08/06/17 08/06/17 04:34 05:44 11:45 WBC Hgb Hct MCH MCHC Plt Count Lymph % (Auto) [place] % (Auto) Lymph # [place] # Seg Neutrophils % Lymphocytes % (Manual) Seg Neutrophils # Seg Neutrophils # Man Lymphocytes # (Manual) Monocytes # (Manual) PT INR APTT POC ABG pH POC ABG pCO2 POC ABG pO2 Sodium Potassium Chloride Carbon Dioxide BUN 30 H Creatinine Glucose 241 H POC Glucose 223 H 239 H Lactic Acid Calcium 8.0 L Phosphorus Total Creatine Kinase CK-MB (CK-2) CK-MB (CK-2) Rel Index Troponin T C-Reactive Protein Serum Total Protein Albumin Ngplz-1-Wkfkqicfv Gamma Globulins PEP Interpretation Triglycerides LDL Cholesterol Direct HDL Cholesterol Urine WBC (Auto) Urine Creatinine Complement C3 Complement C4
[2017-08-06] MEDS: VANCOMYCIN 1,250 MG in NACL 0.9% 250ML 250 ML IV SCH (14:45)
--- NOTE | 2017-08-06 15:38 | Progress Note ---
Assessment and Plan Assessment and plan: 71 year old man with history of CAD, CHF was brought to the emergency room after he had a cardiac arrest at home. He had a cough productive of yellow phlegm, fever 3 days. EMS was called, CPR was continued for another 40 minutes prior to arrival in the emergency room, he had a V. fib or V. tach rhythm for which he was shocked per EMS. CPR was continued in the emergency room, he was hypotensive and placed on levophed and vasopressin. Remains unresponsive. Neurologist evaaluated him EEG no active seizure. Showed slow waves Cardio-resp arrest at home. - Patient is comatose, on amiodarone Persistent vegetative state - Patient admitted PEG and trach placement Shock. Cardiogenic +/- septic shock. V fib sp shock off vasopressor, BP is stable. -Apparently, patient declined ICD 30 days ago Acute hypoxic Respiratory failure on MV >96 hours -continue vent management Ischemic cardiomyopathy, LVEF 15-20% - CAD s/p CABG 2005 at [place] - ONEILL to LAD; COREY to RI; SVG to PLOM; SVG to RV branch and PDA branch Non-specific troponin - Not consistent with ACS Acute kidney Injury due to acute tubular necrosis - Resolved CAD s/p CABG. cardiology note reviewed and appreciated Continue carvedilol, aspirin, lisinopril Ischemic cardiomyopathy: EF 15 - 20 % - Patient had declined AICD placement by his civil designer at [place] Anoxic Encephalopathy: - Secondary to cardiac arrest. - Anoxic encephalopathy. EEG showed no active seizure, slow waves - Dr. Brown following Hypernatremia - Resolved Leukocytosis: From presumed aspiration pneumonia versus community acquired pneumonia. Blood cultures no growth to date. Continue Zosyn/ vanco ID following Pneumonia/Septic shock: left lobar, likely aspiration Blood culture so far are neg. continue abx -influenza neg, legionella neg, Strep pneumoniae neg -crp=4 -repeat resp cx 08/01 +MRSA (likely a colonizer) Hyperglycemia: Monitor blood sugars with sliding scale coverage for now - Full code status - Prophylaxis with Lovenox, GI with Pepcid. The high probability of a clinically significant, sudden or life threatening deterioration of the [cv, neuro, renal, pulmonary] system(s) required my full and direct attention, intervention and personal management. The aggregate critical care time was [32] minutes. This time is in addition to time spent performing reported procedures but includes the following: [x] Data Review and interpretation [x] Patient assessment and monitoring of vital signs [x] Documentation [x] Medication orders and management History Interval history: Patient was seen and evaluated this morning, patient is non communicative. Hospitalist Physical - Physical exam Narrative exam: Patient was on mechanical ventilation, currently on CPAP trial. The patient appeared well nourished and normally developed. Vital signs as documented. Head exam is unremarkable. No scleral icterus . Neck is without jugular venous distension, thyromegaly, or carotid bruits. Lungs are clear to auscultation. Cardiac exam reveals regular rate and Rhythm. First and second heart sounds normal. No murmurs, rubs or gallops. Abdominal exam reveals normal bowel sounds, no masses, no organomegaly and no aortic enlargement. Extremities are nonedematous and both femoral and pedal pulses are normal. NURSING TECHN: Comatose. - Constitutional Vitals: Temp Pulse Resp BP Pulse Ox 97.8 F 55 L 21 156/82 96 08/06/17 12:00 08/06/17 13:44 08/06/17 13:44 08/06/17 13:44 08/06/17 13:44 General appearance: Present: no acute distress, well-nourished (intubated and vent supported), other Results - Labs CBC & Chem 7: 08/06/17 04:34 08/06/17 04:34 Labs: Laboratory Last Values WBC 16.2 K/mm3 (4.5-11.0) H 08/06/17 04:34 RBC 4.06 M/mm3 (3.65-5.03) 08/06/17 04:34 Hgb 11.6 gm/dl (11.8-15.2) L 08/06/17 04:34 Hct 36.0 % (35.5-45.6) 08/06/17 04:34 MCV 89 fl (84-94) 08/06/17 04:34 MCH 29 pg (28-32) 08/06/17 04:34 MCHC 32 % (32-34) 08/06/17 04:34 RDW 14.3 % (13.2-15.2) 08/06/17 04:34 Plt Count 182 K/mm3 (140-440) 08/06/17 04:34 Lymph % (Auto) 5.8 % (13.4-35.0) L 08/06/17 04:34 Waldo % (Auto) 9.3 % (0.0-7.3) H 08/06/17 04:34 Eos % (Auto) 1.3 % (0.0-4.3) 08/06/17 04:34 Baso % (Auto) 0.1 % (0.0-1.8) 08/06/17 04:34 Lymph # 0.9 K/mm3 (1.2-5.4) L 08/06/17 04:34 Waldo # 1.5 K/mm3 (0.0-0.8) H 08/06/17 04:34 Eos # 0.2 K/mm3 (0.0-0.4) 08/06/17 04:34 Baso # 0.0 K/mm3 (0.0-0.1) 08/06/17 04:34 Add Manual Diff Complete 07/27/17 18:26 Total Counted 100 07/27/17 18:26 Seg Neutrophils % 83.5 % (40.0-70.0) H 08/06/17 04:34 Seg Neuts % (Manual) 57.0 % (40.0-70.0) 07/27/17 18:26 Band Neutrophils % 0 % 07/27/17 18:26 Lymphocytes % (Manual) 36.0 % (13.4-35.0) H 07/27/17 18:26 Reactive Lymphs % (Man) 0 % 07/27/17 18:26 Monocytes % (Manual) 7.0 % (0.0-7.3) 07/27/17 18:26 Eosinophils % (Manual) 0 % (0.0-4.3) 07/27/17 18:26 Basophils % (Manual) 0 % (0.0-1.8) 07/27/17 18:26 Metamyelocytes % 0 % 07/27/17 18:26 Myelocytes % 0 % 07/27/17 18:26 Promyelocytes % 0 % 07/27/17 18:26 Blast Cells % 0 % 07/27/17 18:26 Nucleated RBC % Not Reportable 07/27/17 18:26 Seg Neutrophils # 13.5 K/mm3 (1.8-7.7) H 08/06/17 04:34 Seg Neutrophils # Man 8.9 K/mm3 (1.8-7.7) H 07/27/17 18:26 Band Neutrophils # 0.0 K/mm3 07/27/17 18:26 Lymphocytes # (Manual) 5.6 K/mm3 (1.2-5.4) H 07/27/17 18:26 Abs React Lymphs (Man) 0.0 K/mm3 07/27/17 18:26 Monocytes # (Manual) 1.1 K/mm3 (0.0-0.8) H 07/27/17 18:26 Eosinophils # (Manual) 0.0 K/mm3 (0.0-0.4) 07/27/17 18:26 Basophils # (Manual) 0.0 K/mm3 (0.0-0.1) 07/27/17 18:26 Metamyelocytes # 0.0 K/mm3 07/27/17 18:26 Myelocytes # 0.0 K/mm3 07/27/17 18:26 Promyelocytes # 0.0 K/mm3 07/27/17 18:26 Blast Cells # 0.0 K/mm3 07/27/17 18:26 WBC Morphology Not Reportable 07/27/17 18:26 Hypersegmented Neuts Not Reportable 07/27/17 18:26 Hyposegmented Neuts Not Reportable 07/27/17 18:26 Hypogranular Neuts Not Reportable 07/27/17 18:26 Smudge Cells Not Reportable 07/27/17 18:26 Toxic Granulation Not Reportable 07/27/17 18:26 Toxic Vacuolation Not Reportable 07/27/17 18:26 Dohle Bodies Not Reportable 07/27/17 18:26 Pelger-Huet Anomaly Not Reportable 07/27/17 18:26 Zion Rods Not Reportable 07/27/17 18:26 Platelet Estimate Consistent w auto 07/27/17 18:26 Clumped Platelets Not Reportable 07/27/17 18:26 Plt Clumps, EDTA Not Reportable 07/27/17 18:26 Large Platelets Not Reportable 07/27/17 18:26 Giant Platelets Not Reportable 07/27/17 18:26 Platelet Satelliting Not Reportable 07/27/17 18:26 Plt Morphology Comment Not Reportable 07/27/17 18:26 RBC Morphology Not Reportable 07/27/17 18:26 Dimorphic RBCs Not Reportable 07/27/17 18:26 Polychromasia Not Reportable 07/27/17 18:26 Hypochromasia Not Reportable 07/27/17 18:26 Poikilocytosis Not Reportable 07/27/17 18:26 Anisocytosis Rare 07/27/17 18:26 Microcytosis Not Reportable 07/27/17 18:26 Macrocytosis Not Reportable 07/27/17 18:26 Spherocytes Not Reportable 07/27/17 18:26 Pappenheimer Bodies Not Reportable 07/27/17 18:26 Sickle Cells Not Reportable 07/27/17 18:26 Target Cells Not Reportable 07/27/17 18:26 Tear Drop Cells Not Reportable 07/27/17 18:26 Ovalocytes Not Reportable 07/27/17 18:26 Helmet Cells Not Reportable 07/27/17 18:26 [place] Bodies Not Reportable 07/27/17 18:26 [place] Rings Not Reportable 07/27/17 18:26 Moiz Cells Not Reportable 07/27/17 18:26 Bite Cells Not Reportable 07/27/17 18:26 Crenated Cell Not Reportable 07/27/17 18:26 Elliptocytes Not Reportable 07/27/17 18:26 Acanthocytes (Spur) Not Reportable 07/27/17 18:26 Rouleaux Not Reportable 07/27/17 18:26 Hemoglobin C Crystals Not Reportable 07/27/17 18:26 Schistocytes Not Reportable 07/27/17 18:26 Malaria parasites Not Reportable 07/27/17 18:26 Mina Bodies Not Reportable 07/27/17 18:26 Hem Pathologist Commnt No 07/27/17 18:26 PT 15.6 Sec. (12.2-14.9) H 07/27/17 18:26 INR 1.18 (0.87-1.13) H 07/27/17 18:26 APTT 38.5 Sec. (24.2-36.6) H 07/27/17 18:26 POC ABG pH 7.490 (7.35-7.45) H 08/04/17 10:58 POC ABG pCO2 39.0 (35-45) 08/04/17 10:58 POC ABG pO2 71 (80-105) L 08/04/17 10:58 POC ABG HCO3 29.7 08/04/17 10:58 POC ABG Total CO2 31 08/04/17 10:58 POC ABG O2 Sat 95 08/04/17 10:58 POC ABG Base Excess 6 08/04/17 10:58 FiO2 25 % 08/04/17 10:58 Sodium 144 mmol/L (137-145) 08/06/17 04:34 Potassium 4.4 mmol/L (3.6-5.0) 08/06/17 04:34 Chloride 103.7 mmol/L (98-107) 08/06/17 04:34 Carbon Dioxide 26 mmol/L (22-30) 08/06/17 04:34 Anion Gap 19 mmol/L 08/06/17 04:34 BUN 30 mg/dL (9-20) H 08/06/17 04:34 Creatinine 1.0 mg/dL (0.8-1.5) 08/06/17 04:34 Estimated GFR > 60 ml/min 08/06/17 04:34 BUN/Creatinine Ratio 30 % 08/06/17 04:34 Glucose 241 mg/dL (75-100) H 08/06/17 04:34 POC Glucose 239 (70-105) H 08/06/17 11:45 Lactic Acid 1.80 mmol/L (0.7-2.0) 08/03/17 03:29 Calcium 8.0 mg/dL (8.4-10.2) L 08/06/17 04:34 Phosphorus 1.90 mg/dL (2.5-4.5) L 08/05/17 07:34 Magnesium 2.10 mg/dL (1.7-2.3) 08/05/17 07:34 Total Creatine Kinase 434 units/L (55-170) H 07/28/17 05:44 CK-MB (CK-2) 10.8 ng/mL (0.0-4.0) H 07/28/17 05:44 CK-MB (CK-2) Rel Index 2.4 (0-4) 07/28/17 05:44 Troponin T 0.521 ng/mL (0.00-0.029) H* D 07/28/17 05:44 C-Reactive Protein 4.00 mg/dL (0.00-1.30) H 08/01/17 19:42 Serum Total Protein 4.9 g/dL (6.1-8.1) L 07/29/17 Unknown Albumin 2.9 g/dL (3.8-4.8) L 07/29/17 Unknown Rcdez-1-Igczmfpzr 0.4 g/dL (0.2-0.3) H 07/29/17 Unknown Crcjm-4-Bfpvzuqzz 0.6 g/dL (0.5-0.9) 07/29/17 Unknown Beta Globulins 0.2 g/dL (0.2-0.5) 07/29/17 Unknown Gamma Globulins 0.5 g/dL (0.8-1.7) L 07/29/17 Unknown Abnorm Protein Band 1 see below 07/29/17 Unknown PEP Interpretation see below H 07/29/17 Unknown Triglycerides 190 mg/dL (2-149) H 07/27/17 18:26 Cholesterol 93 mg/dL (50-199) 07/27/17 18:26 LDL Cholesterol Direct 34 mg/dL (50-130) L 07/27/17 18:26 HDL Cholesterol 21 mg/dL (40-59) L 07/27/17 18:26 Cholesterol/HDL Ratio 4.42 % 07/27/17 18:26 Urine Color Yellow (Yellow) 08/01/17 19:45 Urine Turbidity Clear (Clear) 08/01/17 19:45 Urine pH 6.0 (5.0-7.0) 08/01/17 19:45 Ur Specific Imperial 1.018 (1.003-1.030) 08/01/17 19:45 Urine Protein 30 mg/dl mg/dL (Negative) 08/01/17 19:45 Urine Glucose (UA) 50 mg/dL (Negative) 08/01/17 19:45 Urine Ketones Neg mg/dL (Negative) 08/01/17 19:45 Urine Blood Mod (Negative) 08/01/17 19:45 Urine Nitrite Neg (Negative) 08/01/17 19:45 Ur Reducing Substances Not Reportable 07/27/17 22:46 Urine Bilirubin Neg (Negative) 08/01/17 19:45 Urine Ictotest Not Reportable 07/27/17 22:46 Urine Urobilinogen < 2.0 mg/dL (<2.0) 08/01/17 19:45 Ur Leukocyte Esterase Neg (Negative) 08/01/17 19:45 Urine WBC (Auto) 1.0 /HPF (0.0-6.0) 08/01/17 19:45 Urine RBC (Auto) 2.0 /HPF (0.0-6.0) 08/01/17 19:45 U Epithel Cells (Auto) < 1.0 /HPF (0-13.0) 08/01/17 19:45 Urine Bacteria (Auto) 1+ /HPF (Negative) 07/27/17 22:46 Amorphous Crystals Few 07/28/17 16:20 Urine Mucus Few /HPF 08/01/17 19:45 Urine Yeast (Budding) Few /HPF 07/28/17 16:20 Urine Eosinophils None seen (None Seen) 07/28/17 16:20 Urine Creatinine 58.4 mg/dL (0.1-20.0) H 07/28/17 16:20 Urine Sodium 94 mmol/L 07/28/17 16:20 Fraction Sodium Excret 2.6 07/28/17 16:20 Vancomycin Trough 7.4 ug/mL (5.0-20.0) 08/03/17 08:52 Urine Opiates Screen Presumptive negative 07/27/17 22:46 Urine Methadone Screen Presumptive negative 07/27/17 22:46 Ur Barbiturates Screen Presumptive negative 07/27/17 22:46 Ur Phencyclidine Scrn Presumptive negative 07/27/17 22:46 Ur Amphetamines Screen Presumptive negative 07/27/17 22:46 U Benzodiazepines Scrn Presumptive negative 07/27/17 22:46 Urine Cocaine Screen Presumptive negative 07/27/17 22:46 U Marijuana (THC) Screen Presumptive negative 07/27/17 22:46 Drugs of Abuse Note Disclamer 07/27/17 22:46 Proteinase 3 (PR3) Ab <1.0 AI (<1.0) 07/28/17 16:00 Myeloperoxidase Ab <1.0 AI (<1.0) 07/28/17 16:00 Double Strand DNA Ab <1 IU/mL (<=4) 07/28/17 16:00 Complement C3 67 mg/dL (90-180) L 07/28/17 16:00 Complement C4 14 mg/dL (16-47) L 07/28/17 16:00 Hepatitis A IgM Ab Non-reactive (NonReactive) 07/28/17 16:00 Hep Bs Antigen Non-reactive (Negative) 07/28/17 16:00 Hep B Core IgM Ab Non-reactive (NonReactive) 07/28/17 16:00 Hepatitis C Antibody Non-reactive (NonReactive) 07/28/17 16:00 Urine Legionella Ag Not detected (Not Detected) 08/01/17 19:45 Miscellaneous Test Flexitest 1 08/01/17 19:45 Blood Type A POSITIVE 07/27/17 18:24 Antibody Screen Negative 07/27/17 18:24
--- NOTE | 2017-08-06 16:44 | Progress Note ---
Assessment and Plan 1. S/p CP arrest, ? primary cardiac event (e.g. arrhythmia) in setting of ICMP 2. Anoxic enceph 3. Acute respiratory failure, hypoxia and rapid shallow breathing index is about 60-80 however, breathing appears to be more labored at the present time. No obvious congestion otherwise. 4. KATELYN 5. Hypernatremia. Been corrected 6. ICMP 7. 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 ? LLL aspiration pneumonia/sepsis Recommendations Back to bed ventilator support, AC mode Continue spontaneous breathing trials every morning. Waiting for EEG report, follow-up neurology opinion regarding metabolic encephalopathy. If neurological status forbids Extubation, we'll then recommend tracheotomy. Discussed with the patient in detail. All questions answered. Critical care time was 31 minutes of [id number] evaluation and coordination of care. Subjective Date of service: 08/06/17 Principal diagnosis: cardiac arrest at home. Intubated and unresponcsive Interval history: Intubated. Unresponsive off sedation. at the bedside. Objective Vital Signs - 12hr 08/06/17 08/06/17 08/06/17 04:45 04:55 05:01 Temperature Pulse Rate 53 L 59 L 60 Respiratory 16 19 Rate Blood Pressure 144/68 144/68 148/55 O2 Sat by Pulse 95 96 94 Oximetry 08/06/17 08/06/17 08/06/17 05:15 05:31 05:45 Temperature Pulse Rate 58 L 51 L 53 L Respiratory 16 16 16 Rate Blood Pressure 148/55 148/55 148/55 O2 Sat by Pulse 95 96 97 Oximetry 08/06/17 08/06/17 08/06/17 05:56 06:01 06:15 Temperature Pulse Rate 56 L 52 L Respiratory 17 15 Rate Blood Pressure 156/52 156/52 O2 Sat by Pulse 97 97 96 Oximetry 08/06/17 08/06/17 08/06/17 06:31 06:45 07:01 Temperature Pulse Rate 58 L 50 L 51 L Respiratory 17 16 15 Rate Blood Pressure 156/52 156/52 138/94 O2 Sat by Pulse 98 97 95 Oximetry 08/06/17 08/06/17 08/06/17 07:15 07:31 07:45 Temperature Pulse Rate 49 L 49 L 48 L Respiratory 16 16 16 Rate Blood Pressure 138/94 138/94 138/94 O2 Sat by Pulse 98 98 97 Oximetry 08/06/17 08/06/17 08/06/17 08:00 08:01 08:15 Temperature 98.3 F Pulse Rate 52 L 50 L Respiratory 16 12 Rate Blood Pressure 138/94 157/78 O2 Sat by Pulse 97 96 Oximetry 08/06/17 08/06/17 08/06/17 08:31 08:45 09:01 Temperature Pulse Rate 51 L 51 L 53 L Respiratory 16 16 16 Rate Blood Pressure 157/78 157/78 148/75 O2 Sat by Pulse 98 98 95 Oximetry 08/06/17 08/06/17 08/06/17 09:15 09:31 09:45 Temperature Pulse Rate 53 L 54 L 54 L Respiratory 16 17 16 Rate Blood Pressure 148/75 148/75 148/75 O2 Sat by Pulse 98 97 98 Oximetry 08/06/17 08/06/17 08/06/17 10:01 10:15 10:27 Temperature Pulse Rate 50 L 50 L 53 L Respiratory 16 16 Rate Blood Pressure 136/68 136/68 148/55 O2 Sat by Pulse 95 97 97 Oximetry 08/06/17 08/06/17 08/06/17 10:31 10:45 11:01 Temperature Pulse Rate 66 56 L 58 L Respiratory 24 16 17 Rate Blood Pressure 136/68 136/68 136/68 O2 Sat by Pulse 95 96 94 Oximetry 08/06/17 08/06/17 08/06/17 11:15 11:31 11:45 Temperature Pulse Rate 52 L 54 L 56 L Respiratory 16 16 21 Rate Blood Pressure 158/75 158/75 158/75 O2 Sat by Pulse 95 95 95 Oximetry 08/06/17 08/06/17 08/06/17 12:00 12:01 12:15 Temperature 97.8 F Pulse Rate 60 55 L Respiratory 21 22 Rate Blood Pressure 148/80 148/80 O2 Sat by Pulse 95 97 Oximetry 08/06/17 08/06/17 08/06/17 12:31 12:45 13:01 Temperature Pulse Rate 54 L 55 L 54 L Respiratory 21 22 21 Rate Blood Pressure 148/80 148/80 156/82 O2 Sat by Pulse 96 97 95 Oximetry 08/06/17 08/06/17 08/06/17 13:15 13:31 13:44 Temperature Pulse Rate 57 L 55 L 55 L Respiratory 21 21 21 Rate Blood Pressure 156/82 156/82 156/82 O2 Sat by Pulse 97 96 96 Oximetry 08/06/17 15:49 Temperature 98.7 F Pulse Rate Respiratory Rate Blood Pressure O2 Sat by Pulse Oximetry Constitutional: comatose (eyes open, not following commands, flaccid extremities ), other (obese, breathing appears to be labored slightly on pressure support/ CPAP) Eyes: non-icteric ENT: oropharynx moist Neck: supple, no JVD Effort: normal Ascultation: Bilateral: clear, diminished breath sounds Percussion: Bilateral: not dull Cardiovascular: regular rate and rhythm Gastrointestinal: normoactive bowel sounds, soft, non-tender, non-distended Integumentary: normal Extremities: no cyanosis, no edema, pink and warm Neurologic: other (see above) Psychiatric: other (unable to assess) CBC and BMP: 08/06/17 04:34 08/06/17 04:34 ABG, PT/INR, D-dimer: ABG POC ABG pH 7.490 (7.35-7.45) H 08/04/17 10:58 POC ABG pCO2 39.0 (35-45) 08/04/17 10:58 POC ABG pO2 71 (80-105) L 08/04/17 10:58 POC ABG HCO3 29.7 08/04/17 10:58 POC ABG Total CO2 31 08/04/17 10:58 POC ABG O2 Sat 95 08/04/17 10:58 PT/INR, D-dimer PT 15.6 Sec. (12.2-14.9) H 07/27/17 18:26 INR 1.18 (0.87-1.13) H 07/27/17 18:26 Abnormal lab findings: Abnormal Labs 07/27/17 07/27/17 07/27/17 18:26 18:26 18:26 WBC 15.6 H Hgb Hct MCH MCHC Plt Count 115 L Lymph % (Auto) [place] % (Auto) Lymph # [place] # Seg Neutrophils % Lymphocytes % (Manual) 36.0 H Seg Neutrophils # Seg Neutrophils # Man 8.9 H Lymphocytes # (Manual) 5.6 H Monocytes # (Manual) 1.1 H PT 15.6 H INR 1.18 H APTT 38.5 H POC ABG pH POC ABG pCO2 POC ABG pO2 Sodium Potassium Chloride Carbon Dioxide 21 L BUN Creatinine Glucose 252 H POC Glucose Lactic Acid Calcium 7.7 L Phosphorus Total Creatine Kinase CK-MB (CK-2) CK-MB (CK-2) Rel Index Troponin T 0.090 H C-Reactive Protein Serum Total Protein Albumin Jmiwa-4-Ltvylbooa Gamma Globulins PEP Interpretation Triglycerides 190 H LDL Cholesterol Direct 34 L HDL Cholesterol 21 L Urine WBC (Auto) Urine Creatinine Complement C3 Complement C4 07/27/17 07/27/17 07/27/17 19:02 19:25 21:43 WBC Hgb Hct MCH MCHC Plt Count Lymph % (Auto) [place] % (Auto) Lymph # [place] # Seg Neutrophils % Lymphocytes % (Manual) Seg Neutrophils # Seg Neutrophils # Man Lymphocytes # (Manual) Monocytes # (Manual) PT INR APTT POC ABG pH 7.155 L POC ABG pCO2 47.7 H POC ABG pO2 229 H Sodium Potassium Chloride Carbon Dioxide BUN Creatinine Glucose POC Glucose Lactic Acid 6.00 H* Calcium Phosphorus Total Creatine Kinase CK-MB (CK-2) 4.8 H CK-MB (CK-2) Rel Index Troponin T 0.149 H* D C-Reactive Protein Serum Total Protein Albumin Bmfvo-9-Eiypvbrvw Gamma Globulins PEP Interpretation Triglycerides LDL Cholesterol Direct HDL Cholesterol Urine WBC (Auto) Urine Creatinine Complement C3 Complement C4 07/27/17 07/27/17 07/28/17 22:47 22:47 01:47 WBC Hgb Hct MCH MCHC Plt Count Lymph % (Auto) [place] % (Auto) Lymph # [place] # Seg Neutrophils % Lymphocytes % (Manual) Seg Neutrophils # Seg Neutrophils # Man Lymphocytes # (Manual) Monocytes # (Manual) PT INR APTT POC ABG pH POC ABG pCO2 POC ABG pO2 Sodium Potassium Chloride Carbon Dioxide BUN Creatinine Glucose POC Glucose 199 H Lactic Acid 2.40 H* Calcium Phosphorus Total Creatine Kinase 222 H CK-MB (CK-2) 9.4 H CK-MB (CK-2) Rel Index 4.2 H Troponin T 0.852 H* D C-Reactive Protein Serum Total Protein Albumin Vkcpg-0-Lyjrqzpvc Gamma Globulins PEP Interpretation Triglycerides LDL Cholesterol Direct HDL Cholesterol Urine WBC (Auto) Urine Creatinine Complement C3 Complement C4 07/28/17 07/28/17 07/28/17 05:29 05:44 05:44 WBC Hgb Hct MCH MCHC Plt Count Lymph % (Auto) [place] % (Auto) Lymph # [place] # Seg Neutrophils % Lymphocytes % (Manual) Seg Neutrophils # Seg Neutrophils # Man Lymphocytes # (Manual) Monocytes # (Manual) PT INR APTT POC ABG pH 7.268 L POC ABG pCO2 34.8 L POC ABG pO2 Sodium 146 H Potassium 5.1 H D Chloride 113.3 H Carbon Dioxide 18 L BUN 29 H Creatinine 2.0 H D Glucose 194 H POC Glucose Lactic Acid 2.10 H* Calcium 6.8 L Phosphorus Total Creatine Kinase CK-MB (CK-2) CK-MB (CK-2) Rel Index Troponin T C-Reactive Protein Serum Total Protein Albumin Qjosx-4-Kokkkoxdd Gamma Globulins PEP Interpretation Triglycerides LDL Cholesterol Direct HDL Cholesterol Urine WBC (Auto) Urine Creatinine Complement C3 Complement C4 07/28/17 07/28/17 07/28/17 05:44 06:30 16:00 WBC 16.9 H Hgb Hct MCH MCHC 31 L Plt Count Lymph % (Auto) 8.4 L [place] % (Auto) 7.5 H Lymph # [place] # 1.3 H Seg Neutrophils % 84.1 H Lymphocytes % (Manual) Seg Neutrophils # 14.2 H Seg Neutrophils # Man Lymphocytes # (Manual) Monocytes # (Manual) PT INR APTT POC ABG pH POC ABG pCO2 POC ABG pO2 Sodium 146 H Potassium Chloride Carbon Dioxide BUN Creatinine 2.4 H Glucose POC Glucose Lactic Acid Calcium Phosphorus Total Creatine Kinase 434 H CK-MB (CK-2) 10.8 H CK-MB (CK-2) Rel Index Troponin T 0.521 H* D C-Reactive Protein Serum Total Protein Albumin Erurz-0-Dkwuujpaw Gamma Globulins PEP Interpretation Triglycerides LDL Cholesterol Direct HDL Cholesterol Urine WBC (Auto) Urine Creatinine Complement C3 Complement C4 07/28/17 07/28/17 07/28/17 16:00 16:00 16:20 WBC Hgb Hct MCH MCHC Plt Count Lymph % (Auto) [place] % (Auto) Lymph # [place] # Seg Neutrophils % Lymphocytes % (Manual) Seg Neutrophils # Seg Neutrophils # Man Lymphocytes # (Manual) Monocytes # (Manual) PT INR APTT POC ABG pH POC ABG pCO2 POC ABG pO2 Sodium Potassium Chloride Carbon Dioxide BUN Creatinine Glucose POC Glucose Lactic Acid Calcium Phosphorus Total Creatine Kinase CK-MB (CK-2) CK-MB (CK-2) Rel Index Troponin T C-Reactive Protein Serum Total Protein Albumin Jsgpk-1-Dofgqlubr Gamma Globulins PEP Interpretation Triglycerides LDL Cholesterol Direct HDL Cholesterol Urine WBC (Auto) 12.0 H Urine Creatinine Complement C3 67 L Complement C4 14 L 07/28/17 07/29/17 07/29/17 16:20 04:02 05:00 WBC Hgb Hct MCH MCHC Plt Count Lymph % (Auto) [place] % (Auto) Lymph # [place] # Seg Neutrophils % Lymphocytes % (Manual) Seg Neutrophils # Seg Neutrophils # Man Lymphocytes # (Manual) Monocytes # (Manual) PT INR APTT POC ABG pH 7.304 L POC ABG pCO2 31.6 L POC ABG pO2 Sodium Potassium Chloride 111.7 H Carbon Dioxide 18 L BUN 37 H Creatinine 2.1 H Glucose 213 H POC Glucose Lactic Acid Calcium 6.9 L Phosphorus Total Creatine Kinase CK-MB (CK-2) CK-MB (CK-2) Rel Index Troponin T C-Reactive Protein Serum Total Protein Albumin Ftigk-7-Zeglbjzpm Gamma Globulins PEP Interpretation Triglycerides LDL Cholesterol Direct HDL Cholesterol Urine WBC (Auto) Urine Creatinine 58.4 H Complement C3 Complement C4 07/29/17 07/29/17 07/30/17 Unknown Unknown 04:07 WBC 14.4 H Hgb Hct MCH MCHC Plt Count 125 L Lymph % (Auto) [place] % (Auto) Lymph # [place] # Seg Neutrophils % Lymphocytes % (Manual) Seg Neutrophils # Seg Neutrophils # Man Lymphocytes # (Manual) Monocytes # (Manual) PT INR APTT POC ABG pH 7.319 L POC ABG pCO2 27.8 L POC ABG pO2 121 H Sodium Potassium Chloride Carbon Dioxide BUN Creatinine Glucose POC Glucose Lactic Acid Calcium Phosphorus Total Creatine Kinase CK-MB (CK-2) CK-MB (CK-2) Rel Index Troponin T C-Reactive Protein Serum Total Protein 4.9 L Albumin 2.9 L Tknld-2-Czunvnynn 0.4 H Gamma Globulins 0.5 L PEP Interpretation see below H Triglycerides LDL Cholesterol Direct HDL Cholesterol Urine WBC (Auto) Urine Creatinine Complement C3 Complement C4 07/30/17 07/30/17 07/30/17 12:43 17:22 23:27 WBC Hgb Hct MCH MCHC Plt Count Lymph % (Auto) [place] % (Auto) Lymph # [place] # Seg Neutrophils % Lymphocytes % (Manual) Seg Neutrophils # Seg Neutrophils # Man Lymphocytes # (Manual) Monocytes # (Manual) PT INR APTT POC ABG pH POC ABG pCO2 POC ABG pO2 Sodium Potassium Chloride Carbon Dioxide BUN Creatinine Glucose POC Glucose 134 H 117 H 173 H Lactic Acid Calcium Phosphorus Total Creatine Kinase CK-MB (CK-2) CK-MB (CK-2) Rel Index Troponin T C-Reactive Protein Serum Total Protein Albumin Zvioh-0-Wwmxqgpam Gamma Globulins PEP Interpretation Triglycerides LDL Cholesterol Direct HDL Cholesterol Urine WBC (Auto) Urine Creatinine Complement C3 Complement C4 07/30/17 07/30/17 07/31/17 Unknown Unknown 04:13 WBC 15.6 H Hgb Hct MCH MCHC Plt Count 117 L Lymph % (Auto) [place] % (Auto) Lymph # [place] # Seg Neutrophils % Lymphocytes % (Manual) Seg Neutrophils # Seg Neutrophils # Man Lymphocytes # (Manual) Monocytes # (Manual) PT INR APTT POC ABG pH POC ABG pCO2 26.8 L POC ABG pO2 74 L Sodium 146 H Potassium Chloride 113.8 H Carbon Dioxide 18 L BUN 36 H Creatinine 1.8 H Glucose 177 H POC Glucose Lactic Acid Calcium 6.9 L Phosphorus Total Creatine Kinase CK-MB (CK-2) CK-MB (CK-2) Rel Index Troponin T C-Reactive Protein Serum Total Protein Albumin Nvdje-5-Thycmwvha Gamma Globulins PEP Interpretation Triglycerides LDL Cholesterol Direct HDL Cholesterol Urine WBC (Auto) Urine Creatinine Complement C3 Complement C4 07/31/17 07/31/17 07/31/17 05:00 05:00 05:01 WBC 18.5 H Hgb Hct MCH MCHC Plt Count 135 L Lymph % (Auto) [place] % (Auto) Lymph # [place] # Seg Neutrophils % Lymphocytes % (Manual) Seg Neutrophils # Seg Neutrophils # Man Lymphocytes # (Manual) Monocytes # (Manual) PT INR APTT POC ABG pH POC ABG pCO2 POC ABG pO2 Sodium 148 H Potassium Chloride 112.8 H Carbon Dioxide 20 L BUN 33 H Creatinine 1.6 H Glucose 188 H POC Glucose 219 H Lactic Acid Calcium 7.1 L Phosphorus Total Creatine Kinase CK-MB (CK-2) CK-MB (CK-2) Rel Index Troponin T C-Reactive Protein Serum Total Protein Albumin Nwidg-0-Wtnsfdhsv Gamma Globulins PEP Interpretation Triglycerides LDL Cholesterol Direct HDL Cholesterol Urine WBC (Auto) Urine Creatinine Complement C3 Complement C4 07/31/17 07/31/17 08/01/17 14:36 17:57 00:02 WBC Hgb Hct MCH MCHC Plt Count Lymph % (Auto) [place] % (Auto) Lymph # [place] # Seg Neutrophils % Lymphocytes % (Manual) Seg Neutrophils # Seg Neutrophils # Man Lymphocytes # (Manual) Monocytes # (Manual) PT INR APTT POC ABG pH POC ABG pCO2 POC ABG pO2 Sodium Potassium Chloride Carbon Dioxide BUN Creatinine Glucose POC Glucose 199 H 216 H 131 H Lactic Acid Calcium Phosphorus Total Creatine Kinase CK-MB (CK-2) CK-MB (CK-2) Rel Index Troponin T C-Reactive Protein Serum Total Protein Albumin Jcypo-2-Nbxratgqi Gamma Globulins PEP Interpretation Triglycerides LDL Cholesterol Direct HDL Cholesterol Urine WBC (Auto) Urine Creatinine Complement C3 Complement C4 08/01/17 08/01/17 08/01/17 03:22 04:10 04:10 WBC 19.3 H Hgb Hct MCH MCHC Plt Count 129 L Lymph % (Auto) [place] % (Auto) Lymph # [place] # Seg Neutrophils % Lymphocytes % (Manual) Seg Neutrophils # Seg Neutrophils # Man Lymphocytes # (Manual) Monocytes # (Manual) PT INR APTT POC ABG pH 7.481 H POC ABG pCO2 29.6 L POC ABG pO2 65 L Sodium 148 H Potassium Chloride 113.2 H Carbon Dioxide 21 L BUN 29 H Creatinine Glucose 173 H POC Glucose Lactic Acid Calcium 7.3 L Phosphorus Total Creatine Kinase CK-MB (CK-2) CK-MB (CK-2) Rel Index Troponin T C-Reactive Protein Serum Total Protein Albumin Sjcbf-1-Fybywplqq Gamma Globulins PEP Interpretation Triglycerides LDL Cholesterol Direct HDL Cholesterol Urine WBC (Auto) Urine Creatinine Complement C3 Complement C4 08/01/17 08/01/17 08/01/17 05:18 11:55 18:13 WBC Hgb Hct MCH MCHC Plt Count Lymph % (Auto) [place] % (Auto) Lymph # [place] # Seg Neutrophils % Lymphocytes % (Manual) Seg Neutrophils # Seg Neutrophils # Man Lymphocytes # (Manual) Monocytes # (Manual) PT INR APTT POC ABG pH POC ABG pCO2 POC ABG pO2 Sodium Potassium Chloride Carbon Dioxide BUN Creatinine Glucose POC Glucose 179 H 174 H 189 H Lactic Acid Calcium Phosphorus Total Creatine Kinase CK-MB (CK-2) CK-MB (CK-2) Rel Index Troponin T C-Reactive Protein Serum Total Protein Albumin Wiwul-2-Niszorxuf Gamma Globulins PEP Interpretation Triglycerides LDL Cholesterol Direct HDL Cholesterol Urine WBC (Auto) Urine Creatinine Complement C3 Complement C4 08/01/17 08/01/17 08/02/17 19:42 22:01 00:01 WBC Hgb Hct MCH MCHC Plt Count Lymph % (Auto) [place] % (Auto) Lymph # [place] # Seg Neutrophils % Lymphocytes % (Manual) Seg Neutrophils # Seg Neutrophils # Man Lymphocytes # (Manual) Monocytes # (Manual) PT INR APTT POC ABG pH POC ABG pCO2 POC ABG pO2 Sodium Potassium Chloride Carbon Dioxide BUN Creatinine Glucose POC Glucose 165 H 129 H Lactic Acid Calcium Phosphorus Total Creatine Kinase CK-MB (CK-2) CK-MB (CK-2) Rel Index Troponin T C-Reactive Protein 4.00 H Serum Total Protein Albumin Joqit-2-Yquwortzd Gamma Globulins PEP Interpretation Triglycerides LDL Cholesterol Direct HDL Cholesterol Urine WBC (Auto) Urine Creatinine Complement C3 Complement C4 08/02/17 08/02/17 08/02/17 03:40 04:10 06:00 WBC Hgb Hct MCH MCHC Plt Count Lymph % (Auto) [place] % (Auto) Lymph # [place] # Seg Neutrophils % Lymphocytes % (Manual) Seg Neutrophils # Seg Neutrophils # Man Lymphocytes # (Manual) Monocytes # (Manual) PT INR APTT POC ABG pH 7.474 H POC ABG pCO2 33.8 L POC ABG pO2 73 L Sodium 148 H Potassium Chloride 109.3 H Carbon Dioxide BUN 31 H Creatinine Glucose 168 H POC Glucose 172 H Lactic Acid Calcium 6.8 L Phosphorus Total Creatine Kinase CK-MB (CK-2) CK-MB (CK-2) Rel Index Troponin T C-Reactive Protein Serum Total Protein Albumin Cfnoz-5-Jcwbtenjg Gamma Globulins PEP Interpretation Triglycerides LDL Cholesterol Direct HDL Cholesterol Urine WBC (Auto) Urine Creatinine Complement C3 Complement C4 08/02/17 08/02/17 08/02/17 07:09 11:25 17:46 WBC 20.1 H Hgb 11.7 L Hct MCH MCHC Plt Count 127 L Lymph % (Auto) [place] % (Auto) Lymph # [place] # Seg Neutrophils % Lymphocytes % (Manual) Seg Neutrophils # Seg Neutrophils # Man Lymphocytes # (Manual) Monocytes # (Manual) PT INR APTT POC ABG pH POC ABG pCO2 POC ABG pO2 Sodium Potassium Chloride Carbon Dioxide BUN Creatinine Glucose POC Glucose 159 H 171 H Lactic Acid Calcium Phosphorus Total Creatine Kinase CK-MB (CK-2) CK-MB (CK-2) Rel Index Troponin T C-Reactive Protein Serum Total Protein Albumin Stfai-6-Gdlolnzth Gamma Globulins PEP Interpretation Triglycerides LDL Cholesterol Direct HDL Cholesterol Urine WBC (Auto) Urine Creatinine Complement C3 Complement C4 08/02/17 08/03/17 08/03/17 22:30 00:05 03:29 WBC Hgb Hct MCH MCHC Plt Count Lymph % (Auto) [place] % (Auto) Lymph # [place] # Seg Neutrophils % Lymphocytes % (Manual) Seg Neutrophils # Seg Neutrophils # Man Lymphocytes # (Manual) Monocytes # (Manual) PT INR APTT POC ABG pH POC ABG pCO2 POC ABG pO2 Sodium 148 H Potassium Chloride 109.1 H Carbon Dioxide BUN 32 H Creatinine Glucose 179 H POC Glucose 179 H 199 H Lactic Acid Calcium 6.9 L Phosphorus Total Creatine Kinase CK-MB (CK-2) CK-MB (CK-2) Rel Index Troponin T C-Reactive Protein Serum Total Protein Albumin Zxodc-4-Xacsabahx Gamma Globulins PEP Interpretation Triglycerides LDL Cholesterol Direct HDL Cholesterol Urine WBC (Auto) Urine Creatinine Complement C3 Complement C4 08/03/17 08/03/17 08/03/17 03:29 05:40 06:01 WBC 19.9 H Hgb Hct MCH MCHC Plt Count 130 L Lymph % (Auto) 7.0 L [place] % (Auto) 11.1 H Lymph # [place] # 2.2 H Seg Neutrophils % 81.4 H Lymphocytes % (Manual) Seg Neutrophils # 16.2 H Seg Neutrophils # Man Lymphocytes # (Manual) Monocytes # (Manual) PT INR APTT POC ABG pH 7.468 H POC ABG pCO2 POC ABG pO2 70 L Sodium Potassium Chloride Carbon Dioxide BUN Creatinine Glucose POC Glucose 179 H Lactic Acid Calcium Phosphorus Total Creatine Kinase CK-MB (CK-2) CK-MB (CK-2) Rel Index Troponin T C-Reactive Protein Serum Total Protein Albumin Knyge-1-Izdiicyzk Gamma Globulins PEP Interpretation Triglycerides LDL Cholesterol Direct HDL Cholesterol Urine WBC (Auto) Urine Creatinine Complement C3 Complement C4 08/03/17 08/03/17 08/04/17 11:43 17:34 00:02 WBC Hgb Hct MCH MCHC Plt Count Lymph % (Auto) [place] % (Auto) Lymph # [place] # Seg Neutrophils % Lymphocytes % (Manual) Seg Neutrophils # Seg Neutrophils # Man Lymphocytes # (Manual) Monocytes # (Manual) PT INR APTT POC ABG pH POC ABG pCO2 POC ABG pO2 Sodium Potassium Chloride Carbon Dioxide BUN Creatinine Glucose POC Glucose 166 H 193 H 191 H Lactic Acid Calcium Phosphorus Total Creatine Kinase CK-MB (CK-2) CK-MB (CK-2) Rel Index Troponin T C-Reactive Protein Serum Total Protein Albumin Dfyvq-6-Pktlgcbbw Gamma Globulins PEP Interpretation Triglycerides LDL Cholesterol Direct HDL Cholesterol Urine WBC (Auto) Urine Creatinine Complement C3 Complement C4 08/04/17 08/04/17 08/04/17 05:18 05:44 05:44 WBC 16.8 H Hgb 11.7 L Hct MCH 27 L MCHC Plt Count Lymph % (Auto) 5.0 L [place] % (Auto) 9.5 H Lymph # 0.8 L [place] # 1.6 H Seg Neutrophils % 84.7 H Lymphocytes % (Manual) Seg Neutrophils # 14.2 H Seg Neutrophils # Man Lymphocytes # (Manual) Monocytes # (Manual) PT INR APTT POC ABG pH POC ABG pCO2 POC ABG pO2 Sodium 148 H Potassium Chloride 108.1 H Carbon Dioxide BUN 31 H Creatinine Glucose 181 H POC Glucose 173 H Lactic Acid Calcium 7.6 L Phosphorus Total Creatine Kinase CK-MB (CK-2) CK-MB (CK-2) Rel Index Troponin T C-Reactive Protein Serum Total Protein Albumin Oujfx-1-Yarcxfufv Gamma Globulins PEP Interpretation Triglycerides LDL Cholesterol Direct HDL Cholesterol Urine WBC (Auto) Urine Creatinine Complement C3 Complement C4 08/04/17 08/04/17 08/04/17 10:58 12:34 17:35 WBC Hgb Hct MCH MCHC Plt Count Lymph % (Auto) [place] % (Auto) Lymph # [place] # Seg Neutrophils % Lymphocytes % (Manual) Seg Neutrophils # Seg Neutrophils # Man Lymphocytes # (Manual) Monocytes # (Manual) PT INR APTT POC ABG pH 7.490 H POC ABG pCO2 POC ABG pO2 71 L Sodium Potassium Chloride Carbon Dioxide BUN Creatinine Glucose POC Glucose 191 H 188 H Lactic Acid Calcium Phosphorus Total Creatine Kinase CK-MB (CK-2) CK-MB (CK-2) Rel Index Troponin T C-Reactive Protein Serum Total Protein Albumin Mtpty-6-Twsonjnyr Gamma Globulins PEP Interpretation Triglycerides LDL Cholesterol Direct HDL Cholesterol Urine WBC (Auto) Urine Creatinine Complement C3 Complement C4 08/05/17 08/05/17 08/05/17 00:00 05:32 07:34 WBC 14.4 H Hgb 10.6 L Hct 32.3 L MCH MCHC Plt Count Lymph % (Auto) 6.7 L [place] % (Auto) 8.6 H Lymph # 1.0 L [place] # 1.2 H Seg Neutrophils % 81.8 H Lymphocytes % (Manual) Seg Neutrophils # 11.8 H Seg Neutrophils # Man Lymphocytes # (Manual) Monocytes # (Manual) PT INR APTT POC ABG pH POC ABG pCO2 POC ABG pO2 Sodium Potassium Chloride Carbon Dioxide BUN Creatinine Glucose POC Glucose 216 H 240 H Lactic Acid Calcium Phosphorus Total Creatine Kinase CK-MB (CK-2) CK-MB (CK-2) Rel Index Troponin T C-Reactive Protein Serum Total Protein Albumin Bvkhz-7-Rhfkfvqrd Gamma Globulins PEP Interpretation Triglycerides LDL Cholesterol Direct HDL Cholesterol Urine WBC (Auto) Urine Creatinine Complement C3 Complement C4 08/05/17 08/05/17 08/05/17 07:34 12:36 17:51 WBC Hgb Hct MCH MCHC Plt Count Lymph % (Auto) [place] % (Auto) Lymph # [place] # Seg Neutrophils % Lymphocytes % (Manual) Seg Neutrophils # Seg Neutrophils # Man Lymphocytes # (Manual) Monocytes # (Manual) PT INR APTT POC ABG pH POC ABG pCO2 POC ABG pO2 Sodium 148 H Potassium Chloride 107.7 H Carbon Dioxide BUN 32 H Creatinine Glucose 241 H POC Glucose 206 H 190 H Lactic Acid Calcium 7.6 L Phosphorus 1.90 L Total Creatine Kinase CK-MB (CK-2) CK-MB (CK-2) Rel Index Troponin T C-Reactive Protein Serum Total Protein Albumin Mnquy-5-Plkjphrtr Gamma Globulins PEP Interpretation Triglycerides LDL Cholesterol Direct HDL Cholesterol Urine WBC (Auto) Urine Creatinine Complement C3 Complement C4 08/05/17 08/06/17 08/06/17 22:11 00:35 04:34 WBC 16.2 H Hgb 11.6 L Hct MCH MCHC Plt Count Lymph % (Auto) 5.8 L [place] % (Auto) 9.3 H Lymph # 0.9 L [place] # 1.5 H Seg Neutrophils % 83.5 H Lymphocytes % (Manual) Seg Neutrophils # 13.5 H Seg Neutrophils # Man Lymphocytes # (Manual) Monocytes # (Manual) PT INR APTT POC ABG pH POC ABG pCO2 POC ABG pO2 Sodium Potassium Chloride Carbon Dioxide BUN Creatinine Glucose POC Glucose 169 H 191 H Lactic Acid Calcium Phosphorus Total Creatine Kinase CK-MB (CK-2) CK-MB (CK-2) Rel Index Troponin T C-Reactive Protein Serum Total Protein Albumin Fyjrx-0-Reyespbyl Gamma Globulins PEP Interpretation Triglycerides LDL Cholesterol Direct HDL Cholesterol Urine WBC (Auto) Urine Creatinine Complement C3 Complement C4 08/06/17 08/06/17 08/06/17 04:34 05:44 11:45 WBC Hgb Hct MCH MCHC Plt Count Lymph % (Auto) [place] % (Auto) Lymph # [place] # Seg Neutrophils % Lymphocytes % (Manual) Seg Neutrophils # Seg Neutrophils # Man Lymphocytes # (Manual) Monocytes # (Manual) PT INR APTT POC ABG pH POC ABG pCO2 POC ABG pO2 Sodium Potassium Chloride Carbon Dioxide BUN 30 H Creatinine Glucose 241 H POC Glucose 223 H 239 H Lactic Acid Calcium 8.0 L Phosphorus Total Creatine Kinase CK-MB (CK-2) CK-MB (CK-2) Rel Index Troponin T C-Reactive Protein Serum Total Protein Albumin Pnemx-8-Goqvsfeoq Gamma Globulins PEP Interpretation Triglycerides LDL Cholesterol Direct HDL Cholesterol Urine WBC (Auto) Urine Creatinine Complement C3 Complement C4 Chest x-ray: image reviewed, other
[2017-08-06] MEDS: LOVENOX SUB-Q SCH (21:37)
[2017-08-07] MEDS: NOVOLOG SUB-Q SCH (00:06)
[2017-08-07] MEDS: D5W 1,000 ML IV SCH ×3 (00:08→22:55)
[2017-08-07] MEDS: ZOSYN/NS 3.375GM/50ML 3.375 GM/50 ML BAG IV SCH ×4 (03:41→18:55)
[2017-08-07 05:52] LABS: Basophils # (Auto) 0.1 K/mm3 (0.0-0.1); Basophils % (Auto) 0.6 % (0.0-1.8); Eosinophils # (Auto) 0.2 K/mm3 (0.0-0.4); Eosinophils % (Auto) 1.7 % (0.0-4.3); Hematocrit 31.4 % (35.5-45.6); Hemoglobin 10.4 gm/dl (11.8-15.2); Lymphocytes # (Auto) 0.8 K/mm3 (1.2-5.4); Lymphocytes % (Auto) 5.8 % (13.4-35.0); Mean Corpuscular HGB Conc 33 % (32-34); Mean Corpuscular Hemoglobin 29 pg (28-32); Mean Corpuscular Volume 88 fl (84-94); Monocytes # (Auto) 1.2 K/mm3 (0.0-0.8); Monocytes % (Auto) 8.7 % (0.0-7.3); Platelet Count 144 K/mm3 (140-440); Red Blood Count 3.58 M/mm3 (3.65-5.03); Red Cell Distribution Width 14.4 % (13.2-15.2)
[2017-08-07 06:18] LABS: BUN/Creatinine Ratio 31; Blood Urea Nitrogen 28 mg/dL (9-20); Calcium 7.8 mg/dL (8.4-10.2); Hemolysis Index 29
[2017-08-07] MEDS: ZESTRIL PO SCH (10:29)
[2017-08-07] MEDS: PEPCID IV SCH ×2 (10:29→22:56)
[2017-08-07] MEDS: COREG PO SCH ×2 (10:29→22:00)
[2017-08-07] MEDS: BABY ASPIRIN FEEDTUBE SCH (10:29)
--- NOTE | 2017-08-07 12:07 | Consultation ---
History of Present Illness Consult date: 08/07/17 History of present illness: Reviewed the pulmonary note OK to proceed with taper and extubation.... I did speak to about EEG report( provided my expert analysis of prognosis for recovery from arrest) prognosis will depend on respond to vent taper proceed with protocol for taper Past History Past Medical History: CAD Social history: no significant social history (denies smoking or drinking) Family history: no significant family history (negative for kidney disease) Medications and Allergies Allergies Allergy/AdvReac Type Severity Reaction Status Date / Time acetaminophen [From Vicodin] Allergy Unknown Verified 07/27/17 18:13 hydrocodone [From Vicodin] Allergy Unknown Verified 07/27/17 18:13 zolpidem [From Ambien] Allergy Unknown Verified 07/27/17 18:13 Home Medications Medication Instructions Recorded Confirmed Last Taken Type Aspirin [Aspirin BABY CHEW TAB] 1 tab PO QDAY 07/29/17 07/29/17 07/25/17 History AtorvaSTATin [Lipitor] 40 mg PO QHS 07/29/17 07/29/17 07/25/17 History Clopidogrel [Plavix] 75 mg PO QDAY 07/29/17 07/29/17 07/25/17 History ISOSORBIDE MONOnitrate [Imdur ER] 30 mg PO DAILY 07/29/17 07/29/17 07/25/17 History Spironolactone [Aldactone] 25 mg PO QDAY 07/29/17 07/29/17 07/25/17 History Tamsulosin HCl [Flomax] 1 tab PO QDAY 07/29/17 07/29/17 07/25/17 History Carvedilol [Coreg] 12.5 mg PO BID 07/30/17 07/30/17 07/27/17 09:00 History Sacubitril/Valsartan [Entresto 49 49 - 51 mg PO BID 07/30/17 07/30/17 07/27/17 09:00 History mg-51 mg Tablet] Active Meds: Active Medications Acetaminophen (Tylenol) 650 mg PO Q6HR PRN PRN Reason: Fever Last Admin: 08/01/17 13:51 Dose: 650 mg Albuterol (Proventil) 2.5 mg IH Q3HRT PRN PRN Reason: Shortness Of Breath Amiodarone HCl (Cordarone) 200 mg PO BID DANIEL Last Admin: 08/06/17 23:50 Dose: Not Given Lipase/Protease/Amylase (Pancreamirae Dr 10,500 Unit) 1 each FEEDTUBE PRN PRN PRN Reason: For Clogged Feeding Tube Last Admin: 07/31/17 10:07 Dose: 1 each Aspirin (Baby Aspirin) 81 mg FEEDTUBE QDAY [facility] Last Admin: 08/07/17 10:29 Dose: 81 mg Carvedilol (Coreg) 3.125 mg PO BID [facility] Last Admin: 08/07/17 10:29 Dose: 3.125 mg Enoxaparin Sodium (Lovenox) 40 mg SUB-Q QDAY@2200 [facility] Last Admin: 08/06/17 21:37 Dose: 40 mg Famotidine (Pepcid) 20 mg IV BID [facility] Last Admin: 08/07/17 10:29 Dose: 20 mg Hydrophilic Ointment (Vaseline Lip Therapy) 1 applic TP Q2HR PRN PRN Reason: Dry Lips Vasopressin 20 unit/ Sodium (Chloride) 101 mls @ 9.09 mls/hr IV TITR DANIEL; 0.03 UNITS/MIN PRN Reason: Protocol Last Titration: 07/30/17 09:21 Dose: 0 units/min, 0 mls/hr Norepinephrine (Levophed Drip 4 Mg/Ns 250 Ml) 4 mg in 250 mls @ 7.5 mls/hr IV TITR DANIEL; 2 MCG/MIN PRN Reason: Protocol Piperacillin Sod/Tazobactam Sod (Zosyn/Ns 3.375gm/50ml) 3.375 gm in 50 mls @ 100 mls/hr IV Q6HR DANIEL PRN Reason: Protocol Last Admin: 08/07/17 05:35 Dose: 100 mls/hr Vancomycin HCl 1,250 mg/ (Sodium Chloride) 262.5 mls @ 166.667 mls/hr IV Q24H [facility] Last Admin: 08/06/17 14:45 Dose: 166.667 mls/hr Dextrose (D5w) 1,000 mls @ 75 mls/hr IV DIRECT [facility] Last Admin: 08/07/17 00:08 Dose: 75 mls/hr Insulin Aspart (Novolog) 0 units SUB-Q QHS DANIEL PRN Reason: Protocol Last Admin: 08/07/17 00:06 Dose: 3 units Insulin Human Regular (Novolin R) 0 units SUB-Q Q6HR DANIEL PRN Reason: Protocol Last Admin: 08/07/17 06:22 Dose: 1 units Lisinopril (Zestril) 5 mg PO QDAY [facility] Last Admin: 08/07/17 10:29 Dose: 5 mg Lorazepam (Ativan) 1 mg IV Q4H PRN PRN Reason: seizures/twitching Multi-Ingred Cream/Lotion/Oil/Oint (Artificial Tears Ophth Oint) 1 applic OU Q4HR PRN PRN Reason: Dry Eye(s) Ondansetron HCl (Zofran) 4 mg IV Q8H PRN PRN Reason: N/V unrelieved by Reglan Simple Syrup (Simple Syrup) 15 ml FEEDTUBE PRN PRN PRN Reason: Hypoglycemia Simple Syrup (Simple Syrup) 30 ml FEEDTUBE PRN PRN PRN Reason: Hypoglycemia Sodium Chloride (Nacl 0.9% 500 Ml) 1 ml IV DIRECT DANIEL Vancomycin HCl (Vancomycin Pharmacy To Dose) 1 each IV PKCONSULT DANIEL PRN Reason: Protocol Physical Examination - Vital Signs Vital Signs: Vital Signs Pulse Resp 28 L 12 07/27/17 18:02 07/27/17 18:02 Results - Laboratory Findings CBC and BMP: 08/07/17 05:24 08/07/17 05:24 Abnormal Lab Findings: Abnormal Labs 07/27/17 07/27/17 07/27/17 18:26 18:26 18:26 WBC 15.6 H RBC Hgb Hct MCH MCHC Plt Count 115 L Lymph % (Auto) [place] % (Auto) Lymph # [place] # Seg Neutrophils % Lymphocytes % (Manual) 36.0 H Seg Neutrophils # Seg Neutrophils # Man 8.9 H Lymphocytes # (Manual) 5.6 H Monocytes # (Manual) 1.1 H PT 15.6 H INR 1.18 H APTT 38.5 H POC ABG pH POC ABG pCO2 POC ABG pO2 Sodium Potassium Chloride Carbon Dioxide 21 L BUN Creatinine Glucose 252 H POC Glucose Lactic Acid Calcium 7.7 L Phosphorus Total Creatine Kinase CK-MB (CK-2) CK-MB (CK-2) Rel Index Troponin T 0.090 H C-Reactive Protein Serum Total Protein Albumin Exqws-8-Eggtgnlkm Gamma Globulins PEP Interpretation Triglycerides 190 H LDL Cholesterol Direct 34 L HDL Cholesterol 21 L Urine WBC (Auto) Urine Creatinine Complement C3 Complement C4 07/27/17 07/27/17 07/27/17 19:02 19:25 21:43 WBC RBC Hgb Hct MCH MCHC Plt Count Lymph % (Auto) [place] % (Auto) Lymph # [place] # Seg Neutrophils % Lymphocytes % (Manual) Seg Neutrophils # Seg Neutrophils # Man Lymphocytes # (Manual) Monocytes # (Manual) PT INR APTT POC ABG pH 7.155 L POC ABG pCO2 47.7 H POC ABG pO2 229 H Sodium Potassium Chloride Carbon Dioxide BUN Creatinine Glucose POC Glucose Lactic Acid 6.00 H* Calcium Phosphorus Total Creatine Kinase CK-MB (CK-2) 4.8 H CK-MB (CK-2) Rel Index Troponin T 0.149 H* D C-Reactive Protein Serum Total Protein Albumin Wunts-1-Ospuwzgbt Gamma Globulins PEP Interpretation Triglycerides LDL Cholesterol Direct HDL Cholesterol Urine WBC (Auto) Urine Creatinine Complement C3 Complement C4 07/27/17 07/27/17 07/28/17 22:47 22:47 01:47 WBC RBC Hgb Hct MCH MCHC Plt Count Lymph % (Auto) [place] % (Auto) Lymph # [place] # Seg Neutrophils % Lymphocytes % (Manual) Seg Neutrophils # Seg Neutrophils # Man Lymphocytes # (Manual) Monocytes # (Manual) PT INR APTT POC ABG pH POC ABG pCO2 POC ABG pO2 Sodium Potassium Chloride Carbon Dioxide BUN Creatinine Glucose POC Glucose 199 H Lactic Acid 2.40 H* Calcium Phosphorus Total Creatine Kinase 222 H CK-MB (CK-2) 9.4 H CK-MB (CK-2) Rel Index 4.2 H Troponin T 0.852 H* D C-Reactive Protein Serum Total Protein Albumin Wvbie-6-Sqainjgdf Gamma Globulins PEP Interpretation Triglycerides LDL Cholesterol Direct HDL Cholesterol Urine WBC (Auto) Urine Creatinine Complement C3 Complement C4 07/28/17 07/28/17 07/28/17 05:29 05:44 05:44 WBC RBC Hgb Hct MCH MCHC Plt Count Lymph % (Auto) [place] % (Auto) Lymph # [place] # Seg Neutrophils % Lymphocytes % (Manual) Seg Neutrophils # Seg Neutrophils # Man Lymphocytes # (Manual) Monocytes # (Manual) PT INR APTT POC ABG pH 7.268 L POC ABG pCO2 34.8 L POC ABG pO2 Sodium 146 H Potassium 5.1 H D Chloride 113.3 H Carbon Dioxide 18 L BUN 29 H Creatinine 2.0 H D Glucose 194 H POC Glucose Lactic Acid 2.10 H* Calcium 6.8 L Phosphorus Total Creatine Kinase CK-MB (CK-2) CK-MB (CK-2) Rel Index Troponin T C-Reactive Protein Serum Total Protein Albumin Rusnj-7-Tivdurdzr Gamma Globulins PEP Interpretation Triglycerides LDL Cholesterol Direct HDL Cholesterol Urine WBC (Auto) Urine Creatinine Complement C3 Complement C4 07/28/17 07/28/17 07/28/17 05:44 06:30 16:00 WBC 16.9 H RBC Hgb Hct MCH MCHC 31 L Plt Count Lymph % (Auto) 8.4 L [place] % (Auto) 7.5 H Lymph # [place] # 1.3 H Seg Neutrophils % 84.1 H Lymphocytes % (Manual) Seg Neutrophils # 14.2 H Seg Neutrophils # Man Lymphocytes # (Manual) Monocytes # (Manual) PT INR APTT POC ABG pH POC ABG pCO2 POC ABG pO2 Sodium 146 H Potassium Chloride Carbon Dioxide BUN Creatinine 2.4 H Glucose POC Glucose Lactic Acid Calcium Phosphorus Total Creatine Kinase 434 H CK-MB (CK-2) 10.8 H CK-MB (CK-2) Rel Index Troponin T 0.521 H* D C-Reactive Protein Serum Total Protein Albumin Vdbcp-7-Kgaurnygz Gamma Globulins PEP Interpretation Triglycerides LDL Cholesterol Direct HDL Cholesterol Urine WBC (Auto) Urine Creatinine Complement C3 Complement C4 07/28/17 07/28/17 07/28/17 16:00 16:00 16:20 WBC RBC Hgb Hct MCH MCHC Plt Count Lymph % (Auto) [place] % (Auto) Lymph # [place] # Seg Neutrophils % Lymphocytes % (Manual) Seg Neutrophils # Seg Neutrophils # Man Lymphocytes # (Manual) Monocytes # (Manual) PT INR APTT POC ABG pH POC ABG pCO2 POC ABG pO2 Sodium Potassium Chloride Carbon Dioxide BUN Creatinine Glucose POC Glucose Lactic Acid Calcium Phosphorus Total Creatine Kinase CK-MB (CK-2) CK-MB (CK-2) Rel Index Troponin T C-Reactive Protein Serum Total Protein Albumin Rkumz-3-Bhpujdkhc Gamma Globulins PEP Interpretation Triglycerides LDL Cholesterol Direct HDL Cholesterol Urine WBC (Auto) 12.0 H Urine Creatinine Complement C3 67 L Complement C4 14 L 07/28/17 07/29/17 07/29/17 16:20 04:02 05:00 WBC RBC Hgb Hct MCH MCHC Plt Count Lymph % (Auto) [place] % (Auto) Lymph # [place] # Seg Neutrophils % Lymphocytes % (Manual) Seg Neutrophils # Seg Neutrophils # Man Lymphocytes # (Manual) Monocytes # (Manual) PT INR APTT POC ABG pH 7.304 L POC ABG pCO2 31.6 L POC ABG pO2 Sodium Potassium Chloride 111.7 H Carbon Dioxide 18 L BUN 37 H Creatinine 2.1 H Glucose 213 H POC Glucose Lactic Acid Calcium 6.9 L Phosphorus Total Creatine Kinase CK-MB (CK-2) CK-MB (CK-2) Rel Index Troponin T C-Reactive Protein Serum Total Protein Albumin Lazhu-9-Cohyxyatp Gamma Globulins PEP Interpretation Triglycerides LDL Cholesterol Direct HDL Cholesterol Urine WBC (Auto) Urine Creatinine 58.4 H Complement C3 Complement C4 07/29/17 07/29/17 07/30/17 Unknown Unknown 04:07 WBC 14.4 H RBC Hgb Hct MCH MCHC Plt Count 125 L Lymph % (Auto) [place] % (Auto) Lymph # [place] # Seg Neutrophils % Lymphocytes % (Manual) Seg Neutrophils # Seg Neutrophils # Man Lymphocytes # (Manual) Monocytes # (Manual) PT INR APTT POC ABG pH 7.319 L POC ABG pCO2 27.8 L POC ABG pO2 121 H Sodium Potassium Chloride Carbon Dioxide BUN Creatinine Glucose POC Glucose Lactic Acid Calcium Phosphorus Total Creatine Kinase CK-MB (CK-2) CK-MB (CK-2) Rel Index Troponin T C-Reactive Protein Serum Total Protein 4.9 L Albumin 2.9 L Xnlkm-8-Nlqlmehzl 0.4 H Gamma Globulins 0.5 L PEP Interpretation see below H Triglycerides LDL Cholesterol Direct HDL Cholesterol Urine WBC (Auto) Urine Creatinine Complement C3 Complement C4 07/30/17 07/30/17 07/30/17 12:43 17:22 23:27 WBC RBC Hgb Hct MCH MCHC Plt Count Lymph % (Auto) [place] % (Auto) Lymph # [place] # Seg Neutrophils % Lymphocytes % (Manual) Seg Neutrophils # Seg Neutrophils # Man Lymphocytes # (Manual) Monocytes # (Manual) PT INR APTT POC ABG pH POC ABG pCO2 POC ABG pO2 Sodium Potassium Chloride Carbon Dioxide BUN Creatinine Glucose POC Glucose 134 H 117 H 173 H Lactic Acid Calcium Phosphorus Total Creatine Kinase CK-MB (CK-2) CK-MB (CK-2) Rel Index Troponin T C-Reactive Protein Serum Total Protein Albumin Xkmmq-5-Ngwnmlkct Gamma Globulins PEP Interpretation Triglycerides LDL Cholesterol Direct HDL Cholesterol Urine WBC (Auto) Urine Creatinine Complement C3 Complement C4 07/30/17 07/30/17 07/31/17 Unknown Unknown 04:13 WBC 15.6 H RBC Hgb Hct MCH MCHC Plt Count 117 L Lymph % (Auto) [place] % (Auto) Lymph # [place] # Seg Neutrophils % Lymphocytes % (Manual) Seg Neutrophils # Seg Neutrophils # Man Lymphocytes # (Manual) Monocytes # (Manual) PT INR APTT POC ABG pH POC ABG pCO2 26.8 L POC ABG pO2 74 L Sodium 146 H Potassium Chloride 113.8 H Carbon Dioxide 18 L BUN 36 H Creatinine 1.8 H Glucose 177 H POC Glucose Lactic Acid Calcium 6.9 L Phosphorus Total Creatine Kinase CK-MB (CK-2) CK-MB (CK-2) Rel Index Troponin T C-Reactive Protein Serum Total Protein Albumin Gceyc-3-Xuosoygza Gamma Globulins PEP Interpretation Triglycerides LDL Cholesterol Direct HDL Cholesterol Urine WBC (Auto) Urine Creatinine Complement C3 Complement C4 07/31/17 07/31/17 07/31/17 05:00 05:00 05:01 WBC 18.5 H RBC Hgb Hct MCH MCHC Plt Count 135 L Lymph % (Auto) [place] % (Auto) Lymph # [place] # Seg Neutrophils % Lymphocytes % (Manual) Seg Neutrophils # Seg Neutrophils # Man Lymphocytes # (Manual) Monocytes # (Manual) PT INR APTT POC ABG pH POC ABG pCO2 POC ABG pO2 Sodium 148 H Potassium Chloride 112.8 H Carbon Dioxide 20 L BUN 33 H Creatinine 1.6 H Glucose 188 H POC Glucose 219 H Lactic Acid Calcium 7.1 L Phosphorus Total Creatine Kinase CK-MB (CK-2) CK-MB (CK-2) Rel Index Troponin T C-Reactive Protein Serum Total Protein Albumin Zypck-1-Pdqpmkgep Gamma Globulins PEP Interpretation Triglycerides LDL Cholesterol Direct HDL Cholesterol Urine WBC (Auto) Urine Creatinine Complement C3 Complement C4 07/31/17 07/31/17 08/01/17 14:36 17:57 00:02 WBC RBC Hgb Hct MCH MCHC Plt Count Lymph % (Auto) [place] % (Auto) Lymph # [place] # Seg Neutrophils % Lymphocytes % (Manual) Seg Neutrophils # Seg Neutrophils # Man Lymphocytes # (Manual) Monocytes # (Manual) PT INR APTT POC ABG pH POC ABG pCO2 POC ABG pO2 Sodium Potassium Chloride Carbon Dioxide BUN Creatinine Glucose POC Glucose 199 H 216 H 131 H Lactic Acid Calcium Phosphorus Total Creatine Kinase CK-MB (CK-2) CK-MB (CK-2) Rel Index Troponin T C-Reactive Protein Serum Total Protein Albumin Rldrk-4-Imheoygtq Gamma Globulins PEP Interpretation Triglycerides LDL Cholesterol Direct HDL Cholesterol Urine WBC (Auto) Urine Creatinine Complement C3 Complement C4 08/01/17 08/01/17 08/01/17 03:22 04:10 04:10 WBC 19.3 H RBC Hgb Hct MCH MCHC Plt Count 129 L Lymph % (Auto) [place] % (Auto) Lymph # [place] # Seg Neutrophils % Lymphocytes % (Manual) Seg Neutrophils # Seg Neutrophils # Man Lymphocytes # (Manual) Monocytes # (Manual) PT INR APTT POC ABG pH 7.481 H POC ABG pCO2 29.6 L POC ABG pO2 65 L Sodium 148 H Potassium Chloride 113.2 H Carbon Dioxide 21 L BUN 29 H Creatinine Glucose 173 H POC Glucose Lactic Acid Calcium 7.3 L Phosphorus Total Creatine Kinase CK-MB (CK-2) CK-MB (CK-2) Rel Index Troponin T C-Reactive Protein Serum Total Protein Albumin Jymoq-1-Jmwxjvpyl Gamma Globulins PEP Interpretation Triglycerides LDL Cholesterol Direct HDL Cholesterol Urine WBC (Auto) Urine Creatinine Complement C3 Complement C4 08/01/17 08/01/17 08/01/17 05:18 11:55 18:13 WBC RBC Hgb Hct MCH MCHC Plt Count Lymph % (Auto) [place] % (Auto) Lymph # [place] # Seg Neutrophils % Lymphocytes % (Manual) Seg Neutrophils # Seg Neutrophils # Man Lymphocytes # (Manual) Monocytes # (Manual) PT INR APTT POC ABG pH POC ABG pCO2 POC ABG pO2 Sodium Potassium Chloride Carbon Dioxide BUN Creatinine Glucose POC Glucose 179 H 174 H 189 H Lactic Acid Calcium Phosphorus Total Creatine Kinase CK-MB (CK-2) CK-MB (CK-2) Rel Index Troponin T C-Reactive Protein Serum Total Protein Albumin Zxelg-5-Lnwbhftdm Gamma Globulins PEP Interpretation Triglycerides LDL Cholesterol Direct HDL Cholesterol Urine WBC (Auto) Urine Creatinine Complement C3 Complement C4 08/01/17 08/01/17 08/02/17 19:42 22:01 00:01 WBC RBC Hgb Hct MCH MCHC Plt Count Lymph % (Auto) [place] % (Auto) Lymph # [place] # Seg Neutrophils % Lymphocytes % (Manual) Seg Neutrophils # Seg Neutrophils # Man Lymphocytes # (Manual) Monocytes # (Manual) PT INR APTT POC ABG pH POC ABG pCO2 POC ABG pO2 Sodium Potassium Chloride Carbon Dioxide BUN Creatinine Glucose POC Glucose 165 H 129 H Lactic Acid Calcium Phosphorus Total Creatine Kinase CK-MB (CK-2) CK-MB (CK-2) Rel Index Troponin T C-Reactive Protein 4.00 H Serum Total Protein Albumin Ojdae-3-Spaubhpfo Gamma Globulins PEP Interpretation Triglycerides LDL Cholesterol Direct HDL Cholesterol Urine WBC (Auto) Urine Creatinine Complement C3 Complement C4 08/02/17 08/02/17 08/02/17 03:40 04:10 06:00 WBC RBC Hgb Hct MCH MCHC Plt Count Lymph % (Auto) [place] % (Auto) Lymph # [place] # Seg Neutrophils % Lymphocytes % (Manual) Seg Neutrophils # Seg Neutrophils # Man Lymphocytes # (Manual) Monocytes # (Manual) PT INR APTT POC ABG pH 7.474 H POC ABG pCO2 33.8 L POC ABG pO2 73 L Sodium 148 H Potassium Chloride 109.3 H Carbon Dioxide BUN 31 H Creatinine Glucose 168 H POC Glucose 172 H Lactic Acid Calcium 6.8 L Phosphorus Total Creatine Kinase CK-MB (CK-2) CK-MB (CK-2) Rel Index Troponin T C-Reactive Protein Serum Total Protein Albumin Fpwzb-7-Ddproymkj Gamma Globulins PEP Interpretation Triglycerides LDL Cholesterol Direct HDL Cholesterol Urine WBC (Auto) Urine Creatinine Complement C3 Complement C4 08/02/17 08/02/17 08/02/17 07:09 11:25 17:46 WBC 20.1 H RBC Hgb 11.7 L Hct MCH MCHC Plt Count 127 L Lymph % (Auto) [place] % (Auto) Lymph # [place] # Seg Neutrophils % Lymphocytes % (Manual) Seg Neutrophils # Seg Neutrophils # Man Lymphocytes # (Manual) Monocytes # (Manual) PT INR APTT POC ABG pH POC ABG pCO2 POC ABG pO2 Sodium Potassium Chloride Carbon Dioxide BUN Creatinine Glucose POC Glucose 159 H 171 H Lactic Acid Calcium Phosphorus Total Creatine Kinase CK-MB (CK-2) CK-MB (CK-2) Rel Index Troponin T C-Reactive Protein Serum Total Protein Albumin Dqkkg-8-Fufcbqqvd Gamma Globulins PEP Interpretation Triglycerides LDL Cholesterol Direct HDL Cholesterol Urine WBC (Auto) Urine Creatinine Complement C3 Complement C4 08/02/17 08/03/17 08/03/17 22:30 00:05 03:29 WBC RBC Hgb Hct MCH MCHC Plt Count Lymph % (Auto) [place] % (Auto) Lymph # [place] # Seg Neutrophils % Lymphocytes % (Manual) Seg Neutrophils # Seg Neutrophils # Man Lymphocytes # (Manual) Monocytes # (Manual) PT INR APTT POC ABG pH POC ABG pCO2 POC ABG pO2 Sodium 148 H Potassium Chloride 109.1 H Carbon Dioxide BUN 32 H Creatinine Glucose 179 H POC Glucose 179 H 199 H Lactic Acid Calcium 6.9 L Phosphorus Total Creatine Kinase CK-MB (CK-2) CK-MB (CK-2) Rel Index Troponin T C-Reactive Protein Serum Total Protein Albumin Wlift-9-Upmxeonnr Gamma Globulins PEP Interpretation Triglycerides LDL Cholesterol Direct HDL Cholesterol Urine WBC (Auto) Urine Creatinine Complement C3 Complement C4 08/03/17 08/03/17 08/03/17 03:29 05:40 06:01 WBC 19.9 H RBC Hgb Hct MCH MCHC Plt Count 130 L Lymph % (Auto) 7.0 L [place] % (Auto) 11.1 H Lymph # [place] # 2.2 H Seg Neutrophils % 81.4 H Lymphocytes % (Manual) Seg Neutrophils # 16.2 H Seg Neutrophils # Man Lymphocytes # (Manual) Monocytes # (Manual) PT INR APTT POC ABG pH 7.468 H POC ABG pCO2 POC ABG pO2 70 L Sodium Potassium Chloride Carbon Dioxide BUN Creatinine Glucose POC Glucose 179 H Lactic Acid Calcium Phosphorus Total Creatine Kinase CK-MB (CK-2) CK-MB (CK-2) Rel Index Troponin T C-Reactive Protein Serum Total Protein Albumin Hqbob-6-Ontcrhkkg Gamma Globulins PEP Interpretation Triglycerides LDL Cholesterol Direct HDL Cholesterol Urine WBC (Auto) Urine Creatinine Complement C3 Complement C4 08/03/17 08/03/17 08/04/17 11:43 17:34 00:02 WBC RBC Hgb Hct MCH MCHC Plt Count Lymph % (Auto) [place] % (Auto) Lymph # [place] # Seg Neutrophils % Lymphocytes % (Manual) Seg Neutrophils # Seg Neutrophils # Man Lymphocytes # (Manual) Monocytes # (Manual) PT INR APTT POC ABG pH POC ABG pCO2 POC ABG pO2 Sodium Potassium Chloride Carbon Dioxide BUN Creatinine Glucose POC Glucose 166 H 193 H 191 H Lactic Acid Calcium Phosphorus Total Creatine Kinase CK-MB (CK-2) CK-MB (CK-2) Rel Index Troponin T C-Reactive Protein Serum Total Protein Albumin Kuzje-3-Lhymzifol Gamma Globulins PEP Interpretation Triglycerides LDL Cholesterol Direct HDL Cholesterol Urine WBC (Auto) Urine Creatinine Complement C3 Complement C4 08/04/17 08/04/17 08/04/17 05:18 05:44 05:44 WBC 16.8 H RBC Hgb 11.7 L Hct MCH 27 L MCHC Plt Count Lymph % (Auto) 5.0 L [place] % (Auto) 9.5 H Lymph # 0.8 L [place] # 1.6 H Seg Neutrophils % 84.7 H Lymphocytes % (Manual) Seg Neutrophils # 14.2 H Seg Neutrophils # Man Lymphocytes # (Manual) Monocytes # (Manual) PT INR APTT POC ABG pH POC ABG pCO2 POC ABG pO2 Sodium 148 H Potassium Chloride 108.1 H Carbon Dioxide BUN 31 H Creatinine Glucose 181 H POC Glucose 173 H Lactic Acid Calcium 7.6 L Phosphorus Total Creatine Kinase CK-MB (CK-2) CK-MB (CK-2) Rel Index Troponin T C-Reactive Protein Serum Total Protein Albumin Rfutw-3-Syvaigbkq Gamma Globulins PEP Interpretation Triglycerides LDL Cholesterol Direct HDL Cholesterol Urine WBC (Auto) Urine Creatinine Complement C3 Complement C4 08/04/17 08/04/17 08/04/17 10:58 12:34 17:35 WBC RBC Hgb Hct MCH MCHC Plt Count Lymph % (Auto) [place] % (Auto) Lymph # [place] # Seg Neutrophils % Lymphocytes % (Manual) Seg Neutrophils # Seg Neutrophils # Man Lymphocytes # (Manual) Monocytes # (Manual) PT INR APTT POC ABG pH 7.490 H POC ABG pCO2 POC ABG pO2 71 L Sodium Potassium Chloride Carbon Dioxide BUN Creatinine Glucose POC Glucose 191 H 188 H Lactic Acid Calcium Phosphorus Total Creatine Kinase CK-MB (CK-2) CK-MB (CK-2) Rel Index Troponin T C-Reactive Protein Serum Total Protein Albumin Cqcqy-0-Hpscinkkx Gamma Globulins PEP Interpretation Triglycerides LDL Cholesterol Direct HDL Cholesterol Urine WBC (Auto) Urine Creatinine Complement C3 Complement C4 08/05/17 08/05/17 08/05/17 00:00 05:32 07:34 WBC 14.4 H RBC Hgb 10.6 L Hct 32.3 L MCH MCHC Plt Count Lymph % (Auto) 6.7 L [place] % (Auto) 8.6 H Lymph # 1.0 L [place] # 1.2 H Seg Neutrophils % 81.8 H Lymphocytes % (Manual) Seg Neutrophils # 11.8 H Seg Neutrophils # Man Lymphocytes # (Manual) Monocytes # (Manual) PT INR APTT POC ABG pH POC ABG pCO2 POC ABG pO2 Sodium Potassium Chloride Carbon Dioxide BUN Creatinine Glucose POC Glucose 216 H 240 H Lactic Acid Calcium Phosphorus Total Creatine Kinase CK-MB (CK-2) CK-MB (CK-2) Rel Index Troponin T C-Reactive Protein Serum Total Protein Albumin Cqrsc-1-Dyulyxdwb Gamma Globulins PEP Interpretation Triglycerides LDL Cholesterol Direct HDL Cholesterol Urine WBC (Auto) Urine Creatinine Complement C3 Complement C4 08/05/17 08/05/17 08/05/17 07:34 12:36 17:51 WBC RBC Hgb Hct MCH MCHC Plt Count Lymph % (Auto) [place] % (Auto) Lymph # [place] # Seg Neutrophils % Lymphocytes % (Manual) Seg Neutrophils # Seg Neutrophils # Man Lymphocytes # (Manual) Monocytes # (Manual) PT INR APTT POC ABG pH POC ABG pCO2 POC ABG pO2 Sodium 148 H Potassium Chloride 107.7 H Carbon Dioxide BUN 32 H Creatinine Glucose 241 H POC Glucose 206 H 190 H Lactic Acid Calcium 7.6 L Phosphorus 1.90 L Total Creatine Kinase CK-MB (CK-2) CK-MB (CK-2) Rel Index Troponin T C-Reactive Protein Serum Total Protein Albumin Rcwlh-5-Szwevxtdq Gamma Globulins PEP Interpretation Triglycerides LDL Cholesterol Direct HDL Cholesterol Urine WBC (Auto) Urine Creatinine Complement C3 Complement C4 08/05/17 08/06/17 08/06/17 22:11 00:35 04:34 WBC 16.2 H RBC Hgb 11.6 L Hct MCH MCHC Plt Count Lymph % (Auto) 5.8 L [place] % (Auto) 9.3 H Lymph # 0.9 L [place] # 1.5 H Seg Neutrophils % 83.5 H Lymphocytes % (Manual) Seg Neutrophils # 13.5 H Seg Neutrophils # Man Lymphocytes # (Manual) Monocytes # (Manual) PT INR APTT POC ABG pH POC ABG pCO2 POC ABG pO2 Sodium Potassium Chloride Carbon Dioxide BUN Creatinine Glucose POC Glucose 169 H 191 H Lactic Acid Calcium Phosphorus Total Creatine Kinase CK-MB (CK-2) CK-MB (CK-2) Rel Index Troponin T C-Reactive Protein Serum Total Protein Albumin Odmbl-9-Vyzrdaqne Gamma Globulins PEP Interpretation Triglycerides LDL Cholesterol Direct HDL Cholesterol Urine WBC (Auto) Urine Creatinine Complement C3 Complement C4 08/06/17 08/06/17 08/06/17 04:34 05:44 11:45 WBC RBC Hgb Hct MCH MCHC Plt Count Lymph % (Auto) [place] % (Auto) Lymph # [place] # Seg Neutrophils % Lymphocytes % (Manual) Seg Neutrophils # Seg Neutrophils # Man Lymphocytes # (Manual) Monocytes # (Manual) PT INR APTT POC ABG pH POC ABG pCO2 POC ABG pO2 Sodium Potassium Chloride Carbon Dioxide BUN 30 H Creatinine Glucose 241 H POC Glucose 223 H 239 H Lactic Acid Calcium 8.0 L Phosphorus Total Creatine Kinase CK-MB (CK-2) CK-MB (CK-2) Rel Index Troponin T C-Reactive Protein Serum Total Protein Albumin [id number] Gamma Globulins PEP Interpretation Triglycerides LDL Cholesterol Direct HDL Cholesterol Urine WBC (Auto) Urine Creatinine Complement C3 Complement C4 08/06/17 08/06/17 08/07/17 17:55 23:43 05:24 WBC 13.5 H RBC 3.58 L Hgb 10.4 L Hct 31.4 L MCH MCHC Plt Count Lymph % (Auto) 5.8 L [place] % (Auto) 8.7 H Lymph # 0.8 L [place] # 1.2 H Seg Neutrophils % 83.2 H Lymphocytes % (Manual) Seg Neutrophils # 11.2 H Seg Neutrophils # Man Lymphocytes # (Manual) Monocytes # (Manual) PT INR APTT POC ABG pH POC ABG pCO2 POC ABG pO2 Sodium Potassium Chloride Carbon Dioxide BUN Creatinine Glucose POC Glucose 227 H 243 H Lactic Acid Calcium Phosphorus Total Creatine Kinase CK-MB (CK-2) CK-MB (CK-2) Rel Index Troponin T C-Reactive Protein Serum Total Protein Albumin Nhmat-[id number] Gamma Globulins PEP Interpretation Triglycerides LDL Cholesterol Direct HDL Cholesterol Urine WBC (Auto) Urine Creatinine Complement C3 Complement C4 08/07/17 08/07/17 05:24 05:38 WBC RBC Hgb Hct MCH MCHC Plt Count Lymph % (Auto) [place] % (Auto) Lymph # [place] # Seg Neutrophils % Lymphocytes % (Manual) Seg Neutrophils # Seg Neutrophils # Man Lymphocytes # (Manual) Monocytes # (Manual) PT INR APTT POC ABG pH POC ABG pCO2 POC ABG pO2 Sodium Potassium Chloride Carbon Dioxide BUN 28 H Creatinine Glucose 184 H POC Glucose 192 H Lactic Acid Calcium 7.8 L Phosphorus Total Creatine Kinase CK-MB (CK-2) CK-MB (CK-2) Rel Index Troponin T C-Reactive Protein Serum Total Protein Albumin [id number] Gamma Globulins PEP Interpretation Triglycerides LDL Cholesterol Direct HDL Cholesterol Urine WBC (Auto) Urine Creatinine Complement C3 Complement C4
--- NOTE | 2017-08-07 12:10 | Progress Note ---
Assessment and Plan S/p CP arrest, post primary cardiac event ( arrhythmia) in setting of ICMP Anoxic encephalopathy Acute respiratory failure, hypoxia and rapid shallow breathing index is about 60 -80 however, breathing appears to be more labored at the present time. No obvious congestion otherwise. KATELYN Hypernatremia. 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 CXR better SHERI review pre admission Sx with MRSA + culture. Contact isolation Recommendations Continue spontaneous breathing trials every morning. Neuro comments , EEG data regarding metabolic encephalopathy appreciated. If neurological status forbids extubation, proceed with tracheotomy x respiratory failure/SHERI. Discussed with the patient in detail. All questions answered. Critical care time was 31 minutes of vygm-jd-zwji evaluation and coordination of care. Subjective Date of service: 08/07/17 Principal diagnosis: cardiac arrest at home. Intubated and unresponcsive Interval history: Intubated. Unresponsive off sedation. Unchanged per RN report Objective Vital Signs - 12hr 08/07/17 08/07/17 08/07/17 00:15 00:31 00:45 Temperature Pulse Rate 61 58 L 53 L Pulse Rate [ Apical] Pulse Rate [ Right Dorsalis Pedis] Respiratory 22 16 16 Rate Blood Pressure 110/63 110/63 110/63 O2 Sat by Pulse 95 96 96 Oximetry 08/07/17 08/07/17 08/07/17 01:01 01:15 01:30 Temperature Pulse Rate 60 52 L 53 L Pulse Rate [ Apical] Pulse Rate [ Right Dorsalis Pedis] Respiratory 18 16 16 Rate Blood Pressure 127/75 127/75 127/75 O2 Sat by Pulse 90 96 96 Oximetry 08/07/17 08/07/17 08/07/17 01:45 02:00 02:15 Temperature Pulse Rate 63 54 L 54 L Pulse Rate [ Apical] Pulse Rate [ Right Dorsalis Pedis] Respiratory 16 16 16 Rate Blood Pressure 127/75 130/68 130/68 O2 Sat by Pulse 96 93 96 Oximetry 08/07/17 08/07/17 08/07/17 02:31 02:45 03:01 Temperature Pulse Rate 52 L 56 L 80 Pulse Rate [ Apical] Pulse Rate [ Right Dorsalis Pedis] Respiratory 16 18 19 Rate Blood Pressure 130/68 130/68 104/84 O2 Sat by Pulse 96 95 96 Oximetry 08/07/17 08/07/17 08/07/17 03:15 03:31 03:45 Temperature Pulse Rate 55 L 61 54 L Pulse Rate [ Apical] Pulse Rate [ Right Dorsalis Pedis] Respiratory 17 16 16 Rate Blood Pressure 104/84 104/84 104/84 O2 Sat by Pulse 97 96 97 Oximetry 08/07/17 08/07/17 08/07/17 04:00 04:01 04:15 Temperature 98.8 F Pulse Rate 54 L 52 L Pulse Rate [ 50 L Apical] Pulse Rate [ 50 L Right Dorsalis Pedis] Respiratory 16 16 16 Rate Blood Pressure 104/84 128/68 O2 Sat by Pulse 97 97 Oximetry 08/07/17 08/07/17 08/07/17 04:31 04:34 04:45 Temperature Pulse Rate 56 L 55 L 54 L Pulse Rate [ Apical] Pulse Rate [ Right Dorsalis Pedis] Respiratory 16 16 Rate Blood Pressure 128/68 128/68 128/68 O2 Sat by Pulse 98 97 97 Oximetry 08/07/17 08/07/17 08/07/17 05:00 05:15 05:31 Temperature Pulse Rate 49 L 50 L 60 Pulse Rate [ Apical] Pulse Rate [ Right Dorsalis Pedis] Respiratory 16 16 13 Rate Blood Pressure 129/66 129/66 129/66 O2 Sat by Pulse 98 98 97 Oximetry 08/07/17 08/07/17 08/07/17 05:45 06:01 06:15 Temperature Pulse Rate 53 L 52 L 57 L Pulse Rate [ Apical] Pulse Rate [ Right Dorsalis Pedis] Respiratory 14 13 15 Rate Blood Pressure 129/66 136/73 136/73 O2 Sat by Pulse 95 95 97 Oximetry 08/07/17 08/07/17 08/07/17 06:31 06:45 08:49 Temperature Pulse Rate 51 L 49 L 51 L Pulse Rate [ Apical] Pulse Rate [ Right Dorsalis Pedis] Respiratory 16 16 Rate Blood Pressure 136/73 136/73 124/70 O2 Sat by Pulse 97 97 98 Oximetry 08/07/17 08/07/17 09:10 12:04 Temperature Pulse Rate 56 L 52 L Pulse Rate [ Apical] Pulse Rate [ Right Dorsalis Pedis] Respiratory 20 18 Rate Blood Pressure 178/87 139/77 O2 Sat by Pulse 97 98 Oximetry Constitutional: comatose (eyes open only when stimulated, not following commands , flaccid extremities), other (obese, breathing appears to be labored slightly on pressure support/CPAP) Eyes: non-icteric ENT: oropharynx moist Neck: supple, no JVD Effort: normal Ascultation: Bilateral: clear, diminished breath sounds Percussion: Bilateral: not dull Cardiovascular: regular rate and rhythm Gastrointestinal: normoactive bowel sounds, soft, non-tender, non-distended Integumentary: normal Extremities: no cyanosis, no edema, pink and warm Neurologic: other (see above) Psychiatric: other (unable to assess) CBC and BMP: 08/07/17 05:24 08/07/17 05:24 ABG, PT/INR, D-dimer: ABG POC ABG pH 7.490 (7.35-7.45) H 08/04/17 10:58 POC ABG pCO2 39.0 (35-45) 08/04/17 10:58 POC ABG pO2 71 (80-105) L 08/04/17 10:58 POC ABG HCO3 29.7 08/04/17 10:58 POC ABG Total CO2 31 08/04/17 10:58 POC ABG O2 Sat 95 08/04/17 10:58 PT/INR, D-dimer PT 15.6 Sec. (12.2-14.9) H 07/27/17 18:26 INR 1.18 (0.87-1.13) H 07/27/17 18:26 Abnormal lab findings: Abnormal Labs 07/27/17 07/27/17 07/27/17 18:26 18:26 18:26 WBC 15.6 H RBC Hgb Hct MCH MCHC Plt Count 115 L Lymph % (Auto) [place] % (Auto) Lymph # [place] # Seg Neutrophils % Lymphocytes % (Manual) 36.0 H Seg Neutrophils # Seg Neutrophils # Man 8.9 H Lymphocytes # (Manual) 5.6 H Monocytes # (Manual) 1.1 H PT 15.6 H INR 1.18 H APTT 38.5 H POC ABG pH POC ABG pCO2 POC ABG pO2 Sodium Potassium Chloride Carbon Dioxide 21 L BUN Creatinine Glucose 252 H POC Glucose Lactic Acid Calcium 7.7 L Phosphorus Total Creatine Kinase CK-MB (CK-2) CK-MB (CK-2) Rel Index Troponin T 0.090 H C-Reactive Protein Serum Total Protein Albumin Ckqbx-2-Zyomgqcbb Gamma Globulins PEP Interpretation Triglycerides 190 H LDL Cholesterol Direct 34 L HDL Cholesterol 21 L Urine WBC (Auto) Urine Creatinine Complement C3 Complement C4 07/27/17 07/27/17 07/27/17 19:02 19:25 21:43 WBC RBC Hgb Hct MCH MCHC Plt Count Lymph % (Auto) [place] % (Auto) Lymph # [place] # Seg Neutrophils % Lymphocytes % (Manual) Seg Neutrophils # Seg Neutrophils # Man Lymphocytes # (Manual) Monocytes # (Manual) PT INR APTT POC ABG pH 7.155 L POC ABG pCO2 47.7 H POC ABG pO2 229 H Sodium Potassium Chloride Carbon Dioxide BUN Creatinine Glucose POC Glucose Lactic Acid 6.00 H* Calcium Phosphorus Total Creatine Kinase CK-MB (CK-2) 4.8 H CK-MB (CK-2) Rel Index Troponin T 0.149 H* D C-Reactive Protein Serum Total Protein Albumin Sswlm-7-Oivycubyc Gamma Globulins PEP Interpretation Triglycerides LDL Cholesterol Direct HDL Cholesterol Urine WBC (Auto) Urine Creatinine Complement C3 Complement C4 07/27/17 07/27/17 07/28/17 22:47 22:47 01:47 WBC RBC Hgb Hct MCH MCHC Plt Count Lymph % (Auto) [place] % (Auto) Lymph # [place] # Seg Neutrophils % Lymphocytes % (Manual) Seg Neutrophils # Seg Neutrophils # Man Lymphocytes # (Manual) Monocytes # (Manual) PT INR APTT POC ABG pH POC ABG pCO2 POC ABG pO2 Sodium Potassium Chloride Carbon Dioxide BUN Creatinine Glucose POC Glucose 199 H Lactic Acid 2.40 H* Calcium Phosphorus Total Creatine Kinase 222 H CK-MB (CK-2) 9.4 H CK-MB (CK-2) Rel Index 4.2 H Troponin T 0.852 H* D C-Reactive Protein Serum Total Protein Albumin Sodql-3-Zmwkufvrp Gamma Globulins PEP Interpretation Triglycerides LDL Cholesterol Direct HDL Cholesterol Urine WBC (Auto) Urine Creatinine Complement C3 Complement C4 07/28/17 07/28/17 07/28/17 05:29 05:44 05:44 WBC RBC Hgb Hct MCH MCHC Plt Count Lymph % (Auto) [place] % (Auto) Lymph # [place] # Seg Neutrophils % Lymphocytes % (Manual) Seg Neutrophils # Seg Neutrophils # Man Lymphocytes # (Manual) Monocytes # (Manual) PT INR APTT POC ABG pH 7.268 L POC ABG pCO2 34.8 L POC ABG pO2 Sodium 146 H Potassium 5.1 H D Chloride 113.3 H Carbon Dioxide 18 L BUN 29 H Creatinine 2.0 H D Glucose 194 H POC Glucose Lactic Acid 2.10 H* Calcium 6.8 L Phosphorus Total Creatine Kinase CK-MB (CK-2) CK-MB (CK-2) Rel Index Troponin T C-Reactive Protein Serum Total Protein Albumin Kksiq-8-Rgqeksoax Gamma Globulins PEP Interpretation Triglycerides LDL Cholesterol Direct HDL Cholesterol Urine WBC (Auto) Urine Creatinine Complement C3 Complement C4 07/28/17 07/28/17 07/28/17 05:44 06:30 16:00 WBC 16.9 H RBC Hgb Hct MCH MCHC 31 L Plt Count Lymph % (Auto) 8.4 L [place] % (Auto) 7.5 H Lymph # [place] # 1.3 H Seg Neutrophils % 84.1 H Lymphocytes % (Manual) Seg Neutrophils # 14.2 H Seg Neutrophils # Man Lymphocytes # (Manual) Monocytes # (Manual) PT INR APTT POC ABG pH POC ABG pCO2 POC ABG pO2 Sodium 146 H Potassium Chloride Carbon Dioxide BUN Creatinine 2.4 H Glucose POC Glucose Lactic Acid Calcium Phosphorus Total Creatine Kinase 434 H CK-MB (CK-2) 10.8 H CK-MB (CK-2) Rel Index Troponin T 0.521 H* D C-Reactive Protein Serum Total Protein Albumin Dkgtt-9-Aolrdpnqj Gamma Globulins PEP Interpretation Triglycerides LDL Cholesterol Direct HDL Cholesterol Urine WBC (Auto) Urine Creatinine Complement C3 Complement C4 07/28/17 07/28/17 07/28/17 16:00 16:00 16:20 WBC RBC Hgb Hct MCH MCHC Plt Count Lymph % (Auto) [place] % (Auto) Lymph # [place] # Seg Neutrophils % Lymphocytes % (Manual) Seg Neutrophils # Seg Neutrophils # Man Lymphocytes # (Manual) Monocytes # (Manual) PT INR APTT POC ABG pH POC ABG pCO2 POC ABG pO2 Sodium Potassium Chloride Carbon Dioxide BUN Creatinine Glucose POC Glucose Lactic Acid Calcium Phosphorus Total Creatine Kinase CK-MB (CK-2) CK-MB (CK-2) Rel Index Troponin T C-Reactive Protein Serum Total Protein Albumin Qhnaa-5-Nuhfgjxvw Gamma Globulins PEP Interpretation Triglycerides LDL Cholesterol Direct HDL Cholesterol Urine WBC (Auto) 12.0 H Urine Creatinine Complement C3 67 L Complement C4 14 L 07/28/17 07/29/17 07/29/17 16:20 04:02 05:00 WBC RBC Hgb Hct MCH MCHC Plt Count Lymph % (Auto) [place] % (Auto) Lymph # [place] # Seg Neutrophils % Lymphocytes % (Manual) Seg Neutrophils # Seg Neutrophils # Man Lymphocytes # (Manual) Monocytes # (Manual) PT INR APTT POC ABG pH 7.304 L POC ABG pCO2 31.6 L POC ABG pO2 Sodium Potassium Chloride 111.7 H Carbon Dioxide 18 L BUN 37 H Creatinine 2.1 H Glucose 213 H POC Glucose Lactic Acid Calcium 6.9 L Phosphorus Total Creatine Kinase CK-MB (CK-2) CK-MB (CK-2) Rel Index Troponin T C-Reactive Protein Serum Total Protein Albumin Lupvh-8-Vacxlnzum Gamma Globulins PEP Interpretation Triglycerides LDL Cholesterol Direct HDL Cholesterol Urine WBC (Auto) Urine Creatinine 58.4 H Complement C3 Complement C4 07/29/17 07/29/17 07/30/17 Unknown Unknown 04:07 WBC 14.4 H RBC Hgb Hct MCH MCHC Plt Count 125 L Lymph % (Auto) [place] % (Auto) Lymph # [place] # Seg Neutrophils % Lymphocytes % (Manual) Seg Neutrophils # Seg Neutrophils # Man Lymphocytes # (Manual) Monocytes # (Manual) PT INR APTT POC ABG pH 7.319 L POC ABG pCO2 27.8 L POC ABG pO2 121 H Sodium Potassium Chloride Carbon Dioxide BUN Creatinine Glucose POC Glucose Lactic Acid Calcium Phosphorus Total Creatine Kinase CK-MB (CK-2) CK-MB (CK-2) Rel Index Troponin T C-Reactive Protein Serum Total Protein 4.9 L Albumin 2.9 L Sbeha-1-Nmkwmwank 0.4 H Gamma Globulins 0.5 L PEP Interpretation see below H Triglycerides LDL Cholesterol Direct HDL Cholesterol Urine WBC (Auto) Urine Creatinine Complement C3 Complement C4 07/30/17 07/30/17 07/30/17 12:43 17:22 23:27 WBC RBC Hgb Hct MCH MCHC Plt Count Lymph % (Auto) [place] % (Auto) Lymph # [place] # Seg Neutrophils % Lymphocytes % (Manual) Seg Neutrophils # Seg Neutrophils # Man Lymphocytes # (Manual) Monocytes # (Manual) PT INR APTT POC ABG pH POC ABG pCO2 POC ABG pO2 Sodium Potassium Chloride Carbon Dioxide BUN Creatinine Glucose POC Glucose 134 H 117 H 173 H Lactic Acid Calcium Phosphorus Total Creatine Kinase CK-MB (CK-2) CK-MB (CK-2) Rel Index Troponin T C-Reactive Protein Serum Total Protein Albumin Dyqgz-8-Nvddjnaly Gamma Globulins PEP Interpretation Triglycerides LDL Cholesterol Direct HDL Cholesterol Urine WBC (Auto) Urine Creatinine Complement C3 Complement C4 07/30/17 07/30/17 07/31/17 Unknown Unknown 04:13 WBC 15.6 H RBC Hgb Hct MCH MCHC Plt Count 117 L Lymph % (Auto) [place] % (Auto) Lymph # [place] # Seg Neutrophils % Lymphocytes % (Manual) Seg Neutrophils # Seg Neutrophils # Man Lymphocytes # (Manual) Monocytes # (Manual) PT INR APTT POC ABG pH POC ABG pCO2 26.8 L POC ABG pO2 74 L Sodium 146 H Potassium Chloride 113.8 H Carbon Dioxide 18 L BUN 36 H Creatinine 1.8 H Glucose 177 H POC Glucose Lactic Acid Calcium 6.9 L Phosphorus Total Creatine Kinase CK-MB (CK-2) CK-MB (CK-2) Rel Index Troponin T C-Reactive Protein Serum Total Protein Albumin Lkbwu-2-Ziangnalu Gamma Globulins PEP Interpretation Triglycerides LDL Cholesterol Direct HDL Cholesterol Urine WBC (Auto) Urine Creatinine Complement C3 Complement C4 07/31/17 07/31/17 07/31/17 05:00 05:00 05:01 WBC 18.5 H RBC Hgb Hct MCH MCHC Plt Count 135 L Lymph % (Auto) [place] % (Auto) Lymph # [place] # Seg Neutrophils % Lymphocytes % (Manual) Seg Neutrophils # Seg Neutrophils # Man Lymphocytes # (Manual) Monocytes # (Manual) PT INR APTT POC ABG pH POC ABG pCO2 POC ABG pO2 Sodium 148 H Potassium Chloride 112.8 H Carbon Dioxide 20 L BUN 33 H Creatinine 1.6 H Glucose 188 H POC Glucose 219 H Lactic Acid Calcium 7.1 L Phosphorus Total Creatine Kinase CK-MB (CK-2) CK-MB (CK-2) Rel Index Troponin T C-Reactive Protein Serum Total Protein Albumin Nudro-4-Opdjrulre Gamma Globulins PEP Interpretation Triglycerides LDL Cholesterol Direct HDL Cholesterol Urine WBC (Auto) Urine Creatinine Complement C3 Complement C4 07/31/17 07/31/17 08/01/17 14:36 17:57 00:02 WBC RBC Hgb Hct MCH MCHC Plt Count Lymph % (Auto) [place] % (Auto) Lymph # [place] # Seg Neutrophils % Lymphocytes % (Manual) Seg Neutrophils # Seg Neutrophils # Man Lymphocytes # (Manual) Monocytes # (Manual) PT INR APTT POC ABG pH POC ABG pCO2 POC ABG pO2 Sodium Potassium Chloride Carbon Dioxide BUN Creatinine Glucose POC Glucose 199 H 216 H 131 H Lactic Acid Calcium Phosphorus Total Creatine Kinase CK-MB (CK-2) CK-MB (CK-2) Rel Index Troponin T C-Reactive Protein Serum Total Protein Albumin Mwhxg-4-Murpmiros Gamma Globulins PEP Interpretation Triglycerides LDL Cholesterol Direct HDL Cholesterol Urine WBC (Auto) Urine Creatinine Complement C3 Complement C4 08/01/17 08/01/17 08/01/17 03:22 04:10 04:10 WBC 19.3 H RBC Hgb Hct MCH MCHC Plt Count 129 L Lymph % (Auto) [place] % (Auto) Lymph # [place] # Seg Neutrophils % Lymphocytes % (Manual) Seg Neutrophils # Seg Neutrophils # Man Lymphocytes # (Manual) Monocytes # (Manual) PT INR APTT POC ABG pH 7.481 H POC ABG pCO2 29.6 L POC ABG pO2 65 L Sodium 148 H Potassium Chloride 113.2 H Carbon Dioxide 21 L BUN 29 H Creatinine Glucose 173 H POC Glucose Lactic Acid Calcium 7.3 L Phosphorus Total Creatine Kinase CK-MB (CK-2) CK-MB (CK-2) Rel Index Troponin T C-Reactive Protein Serum Total Protein Albumin Eoinj-3-Scbwoojmt Gamma Globulins PEP Interpretation Triglycerides LDL Cholesterol Direct HDL Cholesterol Urine WBC (Auto) Urine Creatinine Complement C3 Complement C4 08/01/17 08/01/17 08/01/17 05:18 11:55 18:13 WBC RBC Hgb Hct MCH MCHC Plt Count Lymph % (Auto) [place] % (Auto) Lymph # [place] # Seg Neutrophils % Lymphocytes % (Manual) Seg Neutrophils # Seg Neutrophils # Man Lymphocytes # (Manual) Monocytes # (Manual) PT INR APTT POC ABG pH POC ABG pCO2 POC ABG pO2 Sodium Potassium Chloride Carbon Dioxide BUN Creatinine Glucose POC Glucose 179 H 174 H 189 H Lactic Acid Calcium Phosphorus Total Creatine Kinase CK-MB (CK-2) CK-MB (CK-2) Rel Index Troponin T C-Reactive Protein Serum Total Protein Albumin Vspjb-0-Lndzbuwfk Gamma Globulins PEP Interpretation Triglycerides LDL Cholesterol Direct HDL Cholesterol Urine WBC (Auto) Urine Creatinine Complement C3 Complement C4 08/01/17 08/01/17 08/02/17 19:42 22:01 00:01 WBC RBC Hgb Hct MCH MCHC Plt Count Lymph % (Auto) [place] % (Auto) Lymph # [place] # Seg Neutrophils % Lymphocytes % (Manual) Seg Neutrophils # Seg Neutrophils # Man Lymphocytes # (Manual) Monocytes # (Manual) PT INR APTT POC ABG pH POC ABG pCO2 POC ABG pO2 Sodium Potassium Chloride Carbon Dioxide BUN Creatinine Glucose POC Glucose 165 H 129 H Lactic Acid Calcium Phosphorus Total Creatine Kinase CK-MB (CK-2) CK-MB (CK-2) Rel Index Troponin T C-Reactive Protein 4.00 H Serum Total Protein Albumin Dctjp-0-Zfgmgcses Gamma Globulins PEP Interpretation Triglycerides LDL Cholesterol Direct HDL Cholesterol Urine WBC (Auto) Urine Creatinine Complement C3 Complement C4 08/02/17 08/02/17 08/02/17 03:40 04:10 06:00 WBC RBC Hgb Hct MCH MCHC Plt Count Lymph % (Auto) [place] % (Auto) Lymph # [place] # Seg Neutrophils % Lymphocytes % (Manual) Seg Neutrophils # Seg Neutrophils # Man Lymphocytes # (Manual) Monocytes # (Manual) PT INR APTT POC ABG pH 7.474 H POC ABG pCO2 33.8 L POC ABG pO2 73 L Sodium 148 H Potassium Chloride 109.3 H Carbon Dioxide BUN 31 H Creatinine Glucose 168 H POC Glucose 172 H Lactic Acid Calcium 6.8 L Phosphorus Total Creatine Kinase CK-MB (CK-2) CK-MB (CK-2) Rel Index Troponin T C-Reactive Protein Serum Total Protein Albumin Szxwu-6-Crybexewj Gamma Globulins PEP Interpretation Triglycerides LDL Cholesterol Direct HDL Cholesterol Urine WBC (Auto) Urine Creatinine Complement C3 Complement C4 08/02/17 08/02/17 08/02/17 07:09 11:25 17:46 WBC 20.1 H RBC Hgb 11.7 L Hct MCH MCHC Plt Count 127 L Lymph % (Auto) [place] % (Auto) Lymph # [place] # Seg Neutrophils % Lymphocytes % (Manual) Seg Neutrophils # Seg Neutrophils # Man Lymphocytes # (Manual) Monocytes # (Manual) PT INR APTT POC ABG pH POC ABG pCO2 POC ABG pO2 Sodium Potassium Chloride Carbon Dioxide BUN Creatinine Glucose POC Glucose 159 H 171 H Lactic Acid Calcium Phosphorus Total Creatine Kinase CK-MB (CK-2) CK-MB (CK-2) Rel Index Troponin T C-Reactive Protein Serum Total Protein Albumin Kufux-0-Lilfhemai Gamma Globulins PEP Interpretation Triglycerides LDL Cholesterol Direct HDL Cholesterol Urine WBC (Auto) Urine Creatinine Complement C3 Complement C4 08/02/17 08/03/17 08/03/17 22:30 00:05 03:29 WBC RBC Hgb Hct MCH MCHC Plt Count Lymph % (Auto) [place] % (Auto) Lymph # [place] # Seg Neutrophils % Lymphocytes % (Manual) Seg Neutrophils # Seg Neutrophils # Man Lymphocytes # (Manual) Monocytes # (Manual) PT INR APTT POC ABG pH POC ABG pCO2 POC ABG pO2 Sodium 148 H Potassium Chloride 109.1 H Carbon Dioxide BUN 32 H Creatinine Glucose 179 H POC Glucose 179 H 199 H Lactic Acid Calcium 6.9 L Phosphorus Total Creatine Kinase CK-MB (CK-2) CK-MB (CK-2) Rel Index Troponin T C-Reactive Protein Serum Total Protein Albumin Pckuh-9-Grvmgkaww Gamma Globulins PEP Interpretation Triglycerides LDL Cholesterol Direct HDL Cholesterol Urine WBC (Auto) Urine Creatinine Complement C3 Complement C4 08/03/17 08/03/17 08/03/17 03:29 05:40 06:01 WBC 19.9 H RBC Hgb Hct MCH MCHC Plt Count 130 L Lymph % (Auto) 7.0 L [place] % (Auto) 11.1 H Lymph # [place] # 2.2 H Seg Neutrophils % 81.4 H Lymphocytes % (Manual) Seg Neutrophils # 16.2 H Seg Neutrophils # Man Lymphocytes # (Manual) Monocytes # (Manual) PT INR APTT POC ABG pH 7.468 H POC ABG pCO2 POC ABG pO2 70 L Sodium Potassium Chloride Carbon Dioxide BUN Creatinine Glucose POC Glucose 179 H Lactic Acid Calcium Phosphorus Total Creatine Kinase CK-MB (CK-2) CK-MB (CK-2) Rel Index Troponin T C-Reactive Protein Serum Total Protein Albumin Mzjoy-0-Wuscnbkum Gamma Globulins PEP Interpretation Triglycerides LDL Cholesterol Direct HDL Cholesterol Urine WBC (Auto) Urine Creatinine Complement C3 Complement C4 08/03/17 08/03/17 08/04/17 11:43 17:34 00:02 WBC RBC Hgb Hct MCH MCHC Plt Count Lymph % (Auto) [place] % (Auto) Lymph # [place] # Seg Neutrophils % Lymphocytes % (Manual) Seg Neutrophils # Seg Neutrophils # Man Lymphocytes # (Manual) Monocytes # (Manual) PT INR APTT POC ABG pH POC ABG pCO2 POC ABG pO2 Sodium Potassium Chloride Carbon Dioxide BUN Creatinine Glucose POC Glucose 166 H 193 H 191 H Lactic Acid Calcium Phosphorus Total Creatine Kinase CK-MB (CK-2) CK-MB (CK-2) Rel Index Troponin T C-Reactive Protein Serum Total Protein Albumin Znpab-9-Wbmfiuvtt Gamma Globulins PEP Interpretation Triglycerides LDL Cholesterol Direct HDL Cholesterol Urine WBC (Auto) Urine Creatinine Complement C3 Complement C4 08/04/17 08/04/17 08/04/17 05:18 05:44 05:44 WBC 16.8 H RBC Hgb 11.7 L Hct MCH 27 L MCHC Plt Count Lymph % (Auto) 5.0 L [place] % (Auto) 9.5 H Lymph # 0.8 L [place] # 1.6 H Seg Neutrophils % 84.7 H Lymphocytes % (Manual) Seg Neutrophils # 14.2 H Seg Neutrophils # Man Lymphocytes # (Manual) Monocytes # (Manual) PT INR APTT POC ABG pH POC ABG pCO2 POC ABG pO2 Sodium 148 H Potassium Chloride 108.1 H Carbon Dioxide BUN 31 H Creatinine Glucose 181 H POC Glucose 173 H Lactic Acid Calcium 7.6 L Phosphorus Total Creatine Kinase CK-MB (CK-2) CK-MB (CK-2) Rel Index Troponin T C-Reactive Protein Serum Total Protein Albumin Iupgo-4-Lmyyhhchr Gamma Globulins PEP Interpretation Triglycerides LDL Cholesterol Direct HDL Cholesterol Urine WBC (Auto) Urine Creatinine Complement C3 Complement C4 08/04/17 08/04/17 08/04/17 10:58 12:34 17:35 WBC RBC Hgb Hct MCH MCHC Plt Count Lymph % (Auto) [place] % (Auto) Lymph # [place] # Seg Neutrophils % Lymphocytes % (Manual) Seg Neutrophils # Seg Neutrophils # Man Lymphocytes # (Manual) Monocytes # (Manual) PT INR APTT POC ABG pH 7.490 H POC ABG pCO2 POC ABG pO2 71 L Sodium Potassium Chloride Carbon Dioxide BUN Creatinine Glucose POC Glucose 191 H 188 H Lactic Acid Calcium Phosphorus Total Creatine Kinase CK-MB (CK-2) CK-MB (CK-2) Rel Index Troponin T C-Reactive Protein Serum Total Protein Albumin Yfwxy-7-Opznzsjsb Gamma Globulins PEP Interpretation Triglycerides LDL Cholesterol Direct HDL Cholesterol Urine WBC (Auto) Urine Creatinine Complement C3 Complement C4 08/05/17 08/05/17 08/05/17 00:00 05:32 07:34 WBC 14.4 H RBC Hgb 10.6 L Hct 32.3 L MCH MCHC Plt Count Lymph % (Auto) 6.7 L [place] % (Auto) 8.6 H Lymph # 1.0 L [place] # 1.2 H Seg Neutrophils % 81.8 H Lymphocytes % (Manual) Seg Neutrophils # 11.8 H Seg Neutrophils # Man Lymphocytes # (Manual) Monocytes # (Manual) PT INR APTT POC ABG pH POC ABG pCO2 POC ABG pO2 Sodium Potassium Chloride Carbon Dioxide BUN Creatinine Glucose POC Glucose 216 H 240 H Lactic Acid Calcium Phosphorus Total Creatine Kinase CK-MB (CK-2) CK-MB (CK-2) Rel Index Troponin T C-Reactive Protein Serum Total Protein Albumin Cuqxm-0-Vyxypebwt Gamma Globulins PEP Interpretation Triglycerides LDL Cholesterol Direct HDL Cholesterol Urine WBC (Auto) Urine Creatinine Complement C3 Complement C4 08/05/17 08/05/17 08/05/17 07:34 12:36 17:51 WBC RBC Hgb Hct MCH MCHC Plt Count Lymph % (Auto) [place] % (Auto) Lymph # [place] # Seg Neutrophils % Lymphocytes % (Manual) Seg Neutrophils # Seg Neutrophils # Man Lymphocytes # (Manual) Monocytes # (Manual) PT INR APTT POC ABG pH POC ABG pCO2 POC ABG pO2 Sodium 148 H Potassium Chloride 107.7 H Carbon Dioxide BUN 32 H Creatinine Glucose 241 H POC Glucose 206 H 190 H Lactic Acid Calcium 7.6 L Phosphorus 1.90 L Total Creatine Kinase CK-MB (CK-2) CK-MB (CK-2) Rel Index Troponin T C-Reactive Protein Serum Total Protein Albumin Zirst-6-Djxfrprng Gamma Globulins PEP Interpretation Triglycerides LDL Cholesterol Direct HDL Cholesterol Urine WBC (Auto) Urine Creatinine Complement C3 Complement C4 08/05/17 08/06/17 08/06/17 22:11 00:35 04:34 WBC 16.2 H RBC Hgb 11.6 L Hct MCH MCHC Plt Count Lymph % (Auto) 5.8 L [place] % (Auto) 9.3 H Lymph # 0.9 L [place] # 1.5 H Seg Neutrophils % 83.5 H Lymphocytes % (Manual) Seg Neutrophils # 13.5 H Seg Neutrophils # Man Lymphocytes # (Manual) Monocytes # (Manual) PT INR APTT POC ABG pH POC ABG pCO2 POC ABG pO2 Sodium Potassium Chloride Carbon Dioxide BUN Creatinine Glucose POC Glucose 169 H 191 H Lactic Acid Calcium Phosphorus Total Creatine Kinase CK-MB (CK-2) CK-MB (CK-2) Rel Index Troponin T C-Reactive Protein Serum Total Protein Albumin Zjgiz-9-Trwkuecen Gamma Globulins PEP Interpretation Triglycerides LDL Cholesterol Direct HDL Cholesterol Urine WBC (Auto) Urine Creatinine Complement C3 Complement C4 08/06/17 08/06/17 08/06/17 04:34 05:44 11:45 WBC RBC Hgb Hct MCH MCHC Plt Count Lymph % (Auto) [place] % (Auto) Lymph # [place] # Seg Neutrophils % Lymphocytes % (Manual) Seg Neutrophils # Seg Neutrophils # Man Lymphocytes # (Manual) Monocytes # (Manual) PT INR APTT POC ABG pH POC ABG pCO2 POC ABG pO2 Sodium Potassium Chloride Carbon Dioxide BUN 30 H Creatinine Glucose 241 H POC Glucose 223 H 239 H Lactic Acid Calcium 8.0 L Phosphorus Total Creatine Kinase CK-MB (CK-2) CK-MB (CK-2) Rel Index Troponin T C-Reactive Protein Serum Total Protein Albumin Xdskj-4-Jfcfnaukl Gamma Globulins PEP Interpretation Triglycerides LDL Cholesterol Direct HDL Cholesterol Urine WBC (Auto) Urine Creatinine Complement C3 Complement C4 08/06/17 08/06/17 08/07/17 17:55 23:43 05:24 WBC 13.5 H RBC 3.58 L Hgb 10.4 L Hct 31.4 L MCH MCHC Plt Count Lymph % (Auto) 5.8 L [place] % (Auto) 8.7 H Lymph # 0.8 L [place] # 1.2 H Seg Neutrophils % 83.2 H Lymphocytes % (Manual) Seg Neutrophils # 11.2 H Seg Neutrophils # Man Lymphocytes # (Manual) Monocytes # (Manual) PT INR APTT POC ABG pH POC ABG pCO2 POC ABG pO2 Sodium Potassium Chloride Carbon Dioxide BUN Creatinine Glucose POC Glucose 227 H 243 H Lactic Acid Calcium Phosphorus Total Creatine Kinase CK-MB (CK-2) CK-MB (CK-2) Rel Index Troponin T C-Reactive Protein Serum Total Protein Albumin Eafdm-6-Zsobokseb Gamma Globulins PEP Interpretation Triglycerides LDL Cholesterol Direct HDL Cholesterol Urine WBC (Auto) Urine Creatinine Complement C3 Complement C4 08/07/17 08/07/17 05:24 05:38 WBC RBC Hgb Hct MCH MCHC Plt Count Lymph % (Auto) [place] % (Auto) Lymph # [place] # Seg Neutrophils % Lymphocytes % (Manual) Seg Neutrophils # Seg Neutrophils # Man Lymphocytes # (Manual) Monocytes # (Manual) PT INR APTT POC ABG pH POC ABG pCO2 POC ABG pO2 Sodium Potassium Chloride Carbon Dioxide BUN 28 H Creatinine Glucose 184 H POC Glucose 192 H Lactic Acid Calcium 7.8 L Phosphorus Total Creatine Kinase CK-MB (CK-2) CK-MB (CK-2) Rel Index Troponin T C-Reactive Protein Serum Total Protein Albumin Nskep-8-Rwiqzeraq Gamma Globulins PEP Interpretation Triglycerides LDL Cholesterol Direct HDL Cholesterol Urine WBC (Auto) Urine Creatinine Complement C3 Complement C4
--- NOTE | 2017-08-07 13:16 | Progress Note ---
Assessment and Plan - Patient Problems (1) Cardiac arrest Current Visit: Yes Status: Acute Plan to address problem: Patient is status post out of hospital cardiopulmonary arrest. Cardiac arrest was manifested by ventricular fibrillation. Post resuscitation, has remained stable sinus rhythm on IV and now oral amiodarone. He has a history of coronary artery disease, previous coronary artery bypass, ischemic cardiomyopathy. He is reported to have declined a recommendation for prophylactic ICD by his doctors at [facility]. We'll continue supportive care for his hemodynamics and continue anti-ischemic cardiac medications as tolerated. Neurology consultation and follow-up is in place for his neuro status assessment. Subjective Date of service: 08/07/17 Principal diagnosis: cardiac arrest at home. Intubated and unresponcsive Interval history: Patient is unresponsive, on the vent, stable sinus rhythm on teletypesetter monitor. Objective Vital Signs Temp Pulse Pulse Pulse Resp Resp BP 08/07/17 12:04 52 L 18 139/77 08/07/17 09:10 56 L 20 178/87 08/07/17 08:49 51 L 124/70 08/07/17 06:45 49 L 16 136/73 08/07/17 06:31 51 L 16 136/73 08/07/17 06:15 57 L 15 136/73 08/07/17 06:01 52 L 13 136/73 08/07/17 05:45 53 L 14 129/66 08/07/17 05:31 60 13 129/66 08/07/17 05:15 50 L 16 129/66 08/07/17 05:00 49 L 16 129/66 08/07/17 04:45 54 L 16 128/68 08/07/17 04:34 55 L 128/68 08/07/17 04:31 56 L 16 128/68 08/07/17 04:15 52 L 16 128/68 08/07/17 04:01 54 L 16 104/84 08/07/17 04:00 98.8 F 50 L 50 L 16 08/07/17 03:45 54 L 16 104/84 08/07/17 03:31 61 16 104/84 08/07/17 03:15 55 L 17 104/84 08/07/17 03:01 80 19 104/84 08/07/17 02:45 56 L 18 130/68 08/07/17 02:31 52 L 16 130/68 08/07/17 02:15 54 L 16 130/68 08/07/17 02:00 54 L 16 130/68 08/07/17 01:45 63 16 127/75 08/07/17 01:30 53 L 16 127/75 08/07/17 01:15 52 L 16 127/75 08/07/17 01:01 60 18 127/75 08/07/17 00:45 53 L 16 110/63 08/07/17 00:31 58 L 16 110/63 08/07/17 00:15 61 22 110/63 08/07/17 00:01 52 L 122/70 08/07/17 00:00 98.3 F 51 L 59 L 59 L 16 110/63 08/06/17 23:51 54 L 115/63 08/06/17 23:45 54 L 17 122/70 08/06/17 23:31 52 L 16 122/70 08/06/17 23:15 54 L 17 122/70 08/06/17 23:01 54 L 16 122/70 08/06/17 22:45 63 18 115/63 08/06/17 22:33 54 L 16 115/63 08/06/17 22:31 53 L 16 115/63 08/06/17 22:15 59 L 13 115/63 08/06/17 22:00 56 L 17 16 115/63 08/06/17 21:45 54 L 16 131/74 08/06/17 21:31 56 L 16 131/74 08/06/17 21:15 54 L 16 131/74 08/06/17 21:00 58 L 15 131/74 08/06/17 20:45 54 L 16 130/65 08/06/17 20:31 55 L 17 130/65 08/06/17 20:15 56 L 16 130/65 08/06/17 20:00 98.7 F 51 L 54 L 54 L 16 130/65 08/06/17 19:52 52 L 134/71 08/06/17 19:45 51 L 16 134/71 08/06/17 19:31 52 L 16 134/71 08/06/17 19:15 51 L 16 134/71 08/06/17 19:00 54 L 17 134/71 08/06/17 18:55 57 L 141/70 08/06/17 18:45 54 L 21 141/74 08/06/17 18:31 59 L 25 H 141/74 08/06/17 18:15 61 22 141/74 08/06/17 18:01 53 L 22 141/74 08/06/17 17:45 53 L 22 135/81 08/06/17 17:31 51 L 22 135/81 08/06/17 17:25 54 L 20 141/74 08/06/17 17:15 59 L 22 135/81 08/06/17 17:01 54 L 22 135/81 08/06/17 16:45 54 L 23 145/85 08/06/17 16:31 54 L 22 145/85 08/06/17 16:15 55 L 21 145/85 08/06/17 16:01 59 L 20 145/85 08/06/17 15:49 98.7 F 08/06/17 15:45 56 L 21 150/77 08/06/17 15:31 58 L 20 150/77 08/06/17 15:15 53 L 23 150/77 08/06/17 15:01 58 L 21 150/77 08/06/17 14:45 60 15 156/74 08/06/17 14:31 60 16 156/74 08/06/17 14:15 56 L 22 156/74 08/06/17 14:01 54 L 22 156/74 08/06/17 13:45 21 156/82 08/06/17 13:44 55 L 21 156/82 08/06/17 13:31 55 L 21 156/82 08/06/17 13:15 57 L 21 156/82 Pulse Ox 08/07/17 12:04 98 08/07/17 09:10 97 08/07/17 08:49 98 08/07/17 06:45 97 08/07/17 06:31 97 08/07/17 06:15 97 08/07/17 06:01 95 08/07/17 05:45 95 08/07/17 05:31 97 08/07/17 05:15 98 08/07/17 05:00 98 08/07/17 04:45 97 08/07/17 04:34 97 08/07/17 04:31 98 08/07/17 04:15 97 08/07/17 04:01 08/07/17 04:00 97 08/07/17 03:45 97 08/07/17 03:31 96 08/07/17 03:15 97 08/07/17 03:01 96 08/07/17 02:45 95 08/07/17 02:31 96 08/07/17 02:15 96 08/07/17 02:00 93 08/07/17 01:45 96 08/07/17 01:30 96 08/07/17 01:15 96 08/07/17 01:01 90 08/07/17 00:45 96 08/07/17 00:31 96 08/07/17 00:15 95 08/07/17 00:01 96 08/07/17 00:00 94 08/06/17 23:51 08/06/17 23:45 95 08/06/17 23:31 95 08/06/17 23:15 96 08/06/17 23:01 93 08/06/17 22:45 95 08/06/17 22:33 95 08/06/17 22:31 95 08/06/17 22:15 95 08/06/17 22:00 93 08/06/17 21:45 96 08/06/17 21:31 95 08/06/17 21:15 94 08/06/17 21:00 93 08/06/17 20:45 94 08/06/17 20:31 95 08/06/17 20:15 94 08/06/17 20:00 96 08/06/17 19:52 97 08/06/17 19:45 95 08/06/17 19:31 94 08/06/17 19:15 96 08/06/17 19:00 94 08/06/17 18:55 97 08/06/17 18:45 96 08/06/17 18:31 95 08/06/17 18:15 96 08/06/17 18:01 95 08/06/17 17:45 96 08/06/17 17:31 96 08/06/17 17:25 96 08/06/17 17:15 97 08/06/17 17:01 95 17 16:45 96 17 16:31 96 08/06/17 16:15 97 08/06/17 16:01 95 08/06/17 15:49 08/06/17 15:45 95 08/06/17 15:31 96 08/06/17 15:15 96 08/06/17 15:01 94 08/06/17 14:45 96 08/06/17 14:31 95 08/06/17 14:15 95 08/06/17 14:01 96 08/06/17 13:45 96 08/06/17 13:44 96 08/06/17 13:31 96 08/06/17 13:15 97 - Physical Examination General: Other (intubated on the vent) Neck: Positive: neck supple, trachea midline. Negative: JVD/HJR, Masses Cardiac: Positive: Reg Rate and Rhythm Lungs: Positive: Decreased Breath Sounds Neuro: Positive: Other (unresponsive on the vent) Abdomen: Positive: Soft Skin: Positive: Clear Extremities: Absent: edema - Labs and Meds CBC 08/07/17 Range/Units 05:24 WBC 13.5 H (4.5-11.0) K/mm3 RBC 3.58 L (3.65-5.03) M/mm3 Hgb 10.4 L (11.8-15.2) gm/dl Hct 31.4 L (35.5-45.6) % Plt Count 144 (140-440) K/mm3 Lymph # 0.8 L (1.2-5.4) K/mm3 [place] # 1.2 H (0.0-0.8) K/mm3 Eos # 0.2 (0.0-0.4) K/mm3 Baso # 0.1 (0.0-0.1) K/mm3 Comprehensive Metabolic Panel 08/07/17 Range/Units 05:24 Sodium 144 (137-145) mmol/L Potassium 3.8 (3.6-5.0) mmol/L Chloride 105.7 (98-107) mmol/L Carbon Dioxide 27 (22-30) mmol/L BUN 28 H (9-20) mg/dL Creatinine 0.9 (0.8-1.5) mg/dL Glucose 184 H (75-100) mg/dL Calcium 7.8 L (8.4-10.2) mg/dL - Imaging and Cardiology EKG: image reviewed
[2017-08-07] MEDS: VANCOMYCIN 1,250 MG in NACL 0.9% 250ML 250 ML IV SCH (14:00)
--- NOTE | 2017-08-07 15:57 | Progress Note ---
Assessment and Plan Assessment and plan: 71 year old man with history of CAD, CHF was brought to the emergency room after he had a cardiac arrest at home. He had a cough productive of yellow phlegm, fever 3 days. EMS was called, CPR was continued for another 40 minutes prior to arrival in the emergency room, he had a V. fib or V. tach rhythm for which he was shocked per EMS. CPR was continued in the emergency room, he was hypotensive and placed on levophed and vasopressin. Remains unresponsive. Neurologist evaaluated him EEG no active seizure. Showed slow waves Cardio-resp arrest at home. - Patient is comatose, on amiodarone Persistent vegetative state - Patient admitted PEG and trach placement Shock. Cardiogenic +/- septic shock. V fib sp shock off vasopressor, BP is stable. -Apparently, patient declined ICD 30 days ago Acute hypoxic Respiratory failure on MV >96 hours -continue vent management Ischemic cardiomyopathy, LVEF 15-20% - CAD s/p CABG 2005 at [place] - ONEILL to LAD; COREY to RI; SVG to PLOM; SVG to RV branch and PDA branch Non-specific troponin - Not consistent with ACS Acute kidney Injury due to acute tubular necrosis - Resolved CAD s/p CABG. 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 - Anoxic encephalopathy. EEG showed no active seizure, slow waves - Dr. Brown following Hypernatremia - Resolved Leukocytosis: From presumed aspiration pneumonia versus community acquired pneumonia. Blood cultures no growth to date. Continue Zosyn/ vanco ID following Pneumonia/Septic shock: left lobar, likely aspiration Blood culture so far are neg. continue abx -influenza neg, legionella neg, Strep pneumoniae neg -crp=4 -repeat resp cx 08/01 +MRSA (likely a colonizer) Hyperglycemia: Monitor blood sugars with sliding scale coverage for now - Full code status - Prophylaxis with Lovenox, GI with Pepcid. The high probability of a clinically significant, sudden or life threatening deterioration of the [cv, neuro, renal, pulmonary] system(s) required my full and direct attention, intervention and personal management. The aggregate critical care time was [32] minutes. This time is in addition to time spent performing reported procedures but includes the following: [x] Data Review and interpretation [x] Patient assessment and monitoring of vital signs [x] Documentation [x] Medication orders and management History Interval history: Patient was seen and evaluated this morning, patient is non communicative. Discussed the management plan with his . Hospitalist Physical - Physical exam Narrative exam: Patient was on mechanical ventilation, currently on CPAP trial. The patient appeared well nourished and normally developed. Vital signs as documented. Head exam is unremarkable. No scleral icterus . Neck is without jugular venous distension, thyromegaly, or carotid bruits. Lungs are clear to auscultation. Cardiac exam reveals regular rate and Rhythm. First and second heart sounds normal. No murmurs, rubs or gallops. Abdominal exam reveals normal bowel sounds, no masses, no organomegaly and no aortic enlargement. Extremities are nonedematous and both femoral and pedal pulses are normal. FACTORY EXPERT: Comatose. - Constitutional Vitals: Temp Pulse Resp BP Pulse Ox 98.8 F 52 L 18 139/77 98 08/07/17 04:00 08/07/17 12:04 08/07/17 12:04 08/07/17 12:04 08/07/17 12:04 General appearance: Present: no acute distress, well-nourished (intubated and vent supported), other Results - Labs CBC & Chem 7: 08/07/17 05:24 08/07/17 05:24 Labs: Laboratory Last Values WBC 13.5 K/mm3 (4.5-11.0) H 08/07/17 05:24 RBC 3.58 M/mm3 (3.65-5.03) L 08/07/17 05:24 Hgb 10.4 gm/dl (11.8-15.2) L 08/07/17 05:24 Hct 31.4 % (35.5-45.6) L 08/07/17 05:24 MCV 88 fl (84-94) 08/07/17 05:24 MCH 29 pg (28-32) 08/07/17 05:24 MCHC 33 % (32-34) 08/07/17 05:24 RDW 14.4 % (13.2-15.2) 08/07/17 05:24 Plt Count 144 K/mm3 (140-440) 08/07/17 05:24 Lymph % (Auto) 5.8 % (13.4-35.0) L 08/07/17 05:24 [place] % (Auto) 8.7 % (0.0-7.3) H 08/07/17 05:24 Eos % (Auto) 1.7 % (0.0-4.3) 08/07/17 05:24 Baso % (Auto) 0.6 % (0.0-1.8) 08/07/17 05:24 Lymph # 0.8 K/mm3 (1.2-5.4) L 08/07/17 05:24 [place] # 1.2 K/mm3 (0.0-0.8) H 08/07/17 05:24 Eos # 0.2 K/mm3 (0.0-0.4) 08/07/17 05:24 Baso # 0.1 K/mm3 (0.0-0.1) 08/07/17 05:24 Add Manual Diff Complete 07/27/17 18:26 Total Counted 100 07/27/17 18:26 Seg Neutrophils % 83.2 % (40.0-70.0) H 08/07/17 05:24 Seg Neuts % (Manual) 57.0 % (40.0-70.0) 07/27/17 18:26 Band Neutrophils % 0 % 07/27/17 18:26 Lymphocytes % (Manual) 36.0 % (13.4-35.0) H 07/27/17 18:26 Reactive Lymphs % (Man) 0 % 07/27/17 18:26 Monocytes % (Manual) 7.0 % (0.0-7.3) 07/27/17 18:26 Eosinophils % (Manual) 0 % (0.0-4.3) 07/27/17 18:26 Basophils % (Manual) 0 % (0.0-1.8) 07/27/17 18:26 Metamyelocytes % 0 % 07/27/17 18:26 Myelocytes % 0 % 07/27/17 18:26 Promyelocytes % 0 % 07/27/17 18:26 Blast Cells % 0 % 07/27/17 18:26 Nucleated RBC % Not Reportable 07/27/17 18:26 Seg Neutrophils # 11.2 K/mm3 (1.8-7.7) H 08/07/17 05:24 Seg Neutrophils # Man 8.9 K/mm3 (1.8-7.7) H 07/27/17 18:26 Band Neutrophils # 0.0 K/mm3 07/27/17 18:26 Lymphocytes # (Manual) 5.6 K/mm3 (1.2-5.4) H 07/27/17 18:26 Abs React Lymphs (Man) 0.0 K/mm3 07/27/17 18:26 Monocytes # (Manual) 1.1 K/mm3 (0.0-0.8) H 07/27/17 18:26 Eosinophils # (Manual) 0.0 K/mm3 (0.0-0.4) 07/27/17 18:26 Basophils # (Manual) 0.0 K/mm3 (0.0-0.1) 07/27/17 18:26 Metamyelocytes # 0.0 K/mm3 07/27/17 18:26 Myelocytes # 0.0 K/mm3 07/27/17 18:26 Promyelocytes # 0.0 K/mm3 07/27/17 18:26 Blast Cells # 0.0 K/mm3 07/27/17 18:26 WBC Morphology Not Reportable 07/27/17 18:26 Hypersegmented Neuts Not Reportable 07/27/17 18:26 Hyposegmented Neuts Not Reportable 07/27/17 18:26 Hypogranular Neuts Not Reportable 07/27/17 18:26 Smudge Cells Not Reportable 07/27/17 18:26 Toxic Granulation Not Reportable 07/27/17 18:26 Toxic Vacuolation Not Reportable 07/27/17 18:26 Dohle Bodies Not Reportable 07/27/17 18:26 Pelger-Huet Anomaly Not Reportable 07/27/17 18:26 [place] Rods Not Reportable 07/27/17 18:26 Platelet Estimate Consistent w auto 07/27/17 18:26 Clumped Platelets Not Reportable 07/27/17 18:26 Plt Clumps, EDTA Not Reportable 07/27/17 18:26 Large Platelets Not Reportable 07/27/17 18:26 Giant Platelets Not Reportable 07/27/17 18:26 Platelet Satelliting Not Reportable 07/27/17 18:26 Plt Morphology Comment Not Reportable 07/27/17 18:26 RBC Morphology Not Reportable 07/27/17 18:26 Dimorphic RBCs Not Reportable 07/27/17 18:26 Polychromasia Not Reportable 07/27/17 18:26 Hypochromasia Not Reportable 07/27/17 18:26 Poikilocytosis Not Reportable 07/27/17 18:26 Anisocytosis Rare 07/27/17 18:26 Microcytosis Not Reportable 07/27/17 18:26 Macrocytosis Not Reportable 07/27/17 18:26 Spherocytes Not Reportable 07/27/17 18:26 Pappenheimer Bodies Not Reportable 07/27/17 18:26 Sickle Cells Not Reportable 07/27/17 18:26 Target Cells Not Reportable 07/27/17 18:26 Tear Drop Cells Not Reportable 07/27/17 18:26 Ovalocytes Not Reportable 07/27/17 18:26 Helmet Cells Not Reportable 07/27/17 18:26 Campbell-Darrington Bodies Not Reportable 07/27/17 18:26 [place] Rings Not Reportable 07/27/17 18:26 Moiz Cells Not Reportable 07/27/17 18:26 Bite Cells Not Reportable 07/27/17 18:26 Crenated Cell Not Reportable 07/27/17 18:26 Elliptocytes Not Reportable 07/27/17 18:26 Acanthocytes (Spur) Not Reportable 07/27/17 18:26 Rouleaux Not Reportable 07/27/17 18:26 Hemoglobin C Crystals Not Reportable 07/27/17 18:26 Schistocytes Not Reportable 07/27/17 18:26 Malaria parasites Not Reportable 07/27/17 18:26 Mina Bodies Not Reportable 07/27/17 18:26 Hem Pathologist Commnt No 07/27/17 18:26 PT 15.6 Sec. (12.2-14.9) H 07/27/17 18:26 INR 1.18 (0.87-1.13) H 07/27/17 18:26 APTT 38.5 Sec. (24.2-36.6) H 07/27/17 18:26 POC ABG pH 7.490 (7.35-7.45) H 08/04/17 10:58 POC ABG pCO2 39.0 (35-45) 08/04/17 10:58 POC ABG pO2 71 (80-105) L 08/04/17 10:58 POC ABG HCO3 29.7 08/04/17 10:58 POC ABG Total CO2 31 08/04/17 10:58 POC ABG O2 Sat 95 08/04/17 10:58 POC ABG Base Excess 6 08/04/17 10:58 FiO2 25 % 08/04/17 10:58 Sodium 144 mmol/L (137-145) 08/07/17 05:24 Potassium 3.8 mmol/L (3.6-5.0) 08/07/17 05:24 Chloride 105.7 mmol/L (98-107) 08/07/17 05:24 Carbon Dioxide 27 mmol/L (22-30) 08/07/17 05:24 Anion Gap 15 mmol/L 08/07/17 05:24 BUN 28 mg/dL (9-20) H 08/07/17 05:24 Creatinine 0.9 mg/dL (0.8-1.5) 08/07/17 05:24 Estimated GFR > 60 ml/min 08/07/17 05:24 BUN/Creatinine Ratio 31 % 08/07/17 05:24 Glucose 184 mg/dL (75-100) H 08/07/17 05:24 POC Glucose 192 (70-105) H 08/07/17 05:38 Lactic Acid 1.80 mmol/L (0.7-2.0) 08/03/17 03:29 Calcium 7.8 mg/dL (8.4-10.2) L 08/07/17 05:24 Phosphorus 1.90 mg/dL (2.5-4.5) L 08/05/17 07:34 Magnesium 2.10 mg/dL (1.7-2.3) 08/05/17 07:34 Total Creatine Kinase 434 units/L (55-170) H 07/28/17 05:44 CK-MB (CK-2) 10.8 ng/mL (0.0-4.0) H 07/28/17 05:44 CK-MB (CK-2) Rel Index 2.4 (0-4) 07/28/17 05:44 Troponin T 0.521 ng/mL (0.00-0.029) H* D 07/28/17 05:44 C-Reactive Protein 4.00 mg/dL (0.00-1.30) H 08/01/17 19:42 Serum Total Protein 4.9 g/dL (6.1-8.1) L 07/29/17 Unknown Albumin 2.9 g/dL (3.8-4.8) L 07/29/17 Unknown Qgyyo-4-Rikocxzva 0.4 g/dL (0.2-0.3) H 07/29/17 Unknown Lvoch-9-Ngscbteqq 0.6 g/dL (0.5-0.9) 07/29/17 Unknown Beta Globulins 0.2 g/dL (0.2-0.5) 07/29/17 Unknown Gamma Globulins 0.5 g/dL (0.8-1.7) L 07/29/17 Unknown Abnorm Protein Band 1 see below 07/29/17 Unknown PEP Interpretation see below H 07/29/17 Unknown Triglycerides 190 mg/dL (2-149) H 07/27/17 18:26 Cholesterol 93 mg/dL (50-199) 07/27/17 18:26 LDL Cholesterol Direct 34 mg/dL (50-130) L 07/27/17 18:26 HDL Cholesterol 21 mg/dL (40-59) L 07/27/17 18:26 Cholesterol/HDL Ratio 4.42 % 07/27/17 18:26 Urine Color Yellow (Yellow) 08/01/17 19:45 Urine Turbidity Clear (Clear) 08/01/17 19:45 Urine pH 6.0 (5.0-7.0) 08/01/17 19:45 Ur Specific [place] 1.018 (1.003-1.030) 08/01/17 19:45 Urine Protein 30 mg/dl mg/dL (Negative) 08/01/17 19:45 Urine Glucose (UA) 50 mg/dL (Negative) 08/01/17 19:45 Urine Ketones Neg mg/dL (Negative) 08/01/17 19:45 Urine Blood Mod (Negative) 08/01/17 19:45 Urine Nitrite Neg (Negative) 08/01/17 19:45 Ur Reducing Substances Not Reportable 07/27/17 22:46 Urine Bilirubin Neg (Negative) 08/01/17 19:45 Urine Ictotest Not Reportable 07/27/17 22:46 Urine Urobilinogen < 2.0 mg/dL (<2.0) 08/01/17 19:45 Ur Leukocyte Esterase Neg (Negative) 08/01/17 19:45 Urine WBC (Auto) 1.0 /HPF (0.0-6.0) 08/01/17 19:45 Urine RBC (Auto) 2.0 /HPF (0.0-6.0) 08/01/17 19:45 U Epithel Cells (Auto) < 1.0 /HPF (0-13.0) 08/01/17 19:45 Urine Bacteria (Auto) 1+ /HPF (Negative) 07/27/17 22:46 Amorphous Crystals Few 07/28/17 16:20 Urine Mucus Few /HPF 08/01/17 19:45 Urine Yeast (Budding) Few /HPF 07/28/17 16:20 Urine Eosinophils None seen (None Seen) 07/28/17 16:20 Urine Creatinine 58.4 mg/dL (0.1-20.0) H 07/28/17 16:20 Urine Sodium 94 mmol/L 07/28/17 16:20 Fraction Sodium Excret 2.6 07/28/17 16:20 Vancomycin Trough 7.1 ug/mL (5.0-20.0) 08/07/17 14:18 Urine Opiates Screen Presumptive negative 07/27/17 22:46 Urine Methadone Screen Presumptive negative 07/27/17 22:46 Ur Barbiturates Screen Presumptive negative 07/27/17 22:46 Ur Phencyclidine Scrn Presumptive negative 07/27/17 22:46 Ur Amphetamines Screen Presumptive negative 07/27/17 22:46 U Benzodiazepines Scrn Presumptive negative 07/27/17 22:46 Urine Cocaine Screen Presumptive negative 07/27/17 22:46 U Marijuana (THC) Screen Presumptive negative 07/27/17 22:46 Drugs of Abuse Note Disclamer 07/27/17 22:46 Proteinase 3 (PR3) Ab <1.0 AI (<1.0) 07/28/17 16:00 Myeloperoxidase Ab <1.0 AI (<1.0) 07/28/17 16:00 Double Strand DNA Ab <1 IU/mL (<=4) 07/28/17 16:00 Complement C3 67 mg/dL (90-180) L 07/28/17 16:00 Complement C4 14 mg/dL (16-47) L 07/28/17 16:00 Hepatitis A IgM Ab Non-reactive (NonReactive) 07/28/17 16:00 Hep Bs Antigen Non-reactive (Negative) 07/28/17 16:00 Hep B Core IgM Ab Non-reactive (NonReactive) 07/28/17 16:00 Hepatitis C Antibody Non-reactive (NonReactive) 07/28/17 16:00 Urine Legionella Ag Not detected (Not Detected) 08/01/17 19:45 Miscellaneous Test Flexitest 1 08/01/17 19:45 Blood Type A POSITIVE 07/27/17 18:24 Antibody Screen Negative 07/27/17 18:24
[2017-08-07] MEDS: CORDARONE PO SCH ×3 (18:17→22:56)
[2017-08-07] MEDS: LOVENOX SUB-Q SCH (22:55)
[2017-08-08] MEDS: ZOSYN/NS 3.375GM/50ML 3.375 GM/50 ML BAG IV SCH ×4 (05:30→22:20)
[2017-08-08] MEDS: D5W 1,000 ML IV SCH ×3 (06:36→19:32)
[2017-08-08 06:54] LABS: Basophils # (Auto) 0.1 K/mm3 (0.0-0.1); Basophils % (Auto) 0.6 % (0.0-1.8); Eosinophils # (Auto) 0.2 K/mm3 (0.0-0.4); Eosinophils % (Auto) 1.5 % (0.0-4.3); Hematocrit 33.7 % (35.5-45.6); Lymphocytes # (Auto) 1.1 K/mm3 (1.2-5.4); Lymphocytes % (Auto) 7.6 % (13.4-35.0); Mean Corpuscular HGB Conc 33 % (32-34); Mean Corpuscular Hemoglobin 28 pg (28-32); Mean Corpuscular Volume 87 fl (84-94); Monocytes # (Auto) 1.5 K/mm3 (0.0-0.8); Monocytes % (Auto) 9.9 % (0.0-7.3); Platelet Count 219 K/mm3 (140-440); Red Blood Count 3.86 M/mm3 (3.65-5.03); Red Cell Distribution Width 14.8 % (13.2-15.2)
[2017-08-08 07:11] LABS: BUN/Creatinine Ratio 32; Blood Urea Nitrogen 29 mg/dL (9-20); Calcium 8.2 mg/dL (8.4-10.2); Hemolysis Index 20
[2017-08-08] MEDS: PEPCID IV SCH ×2 (09:14→22:49)
[2017-08-08] MEDS: BABY ASPIRIN FEEDTUBE SCH (09:14)
[2017-08-08] MEDS: VANCOMYCIN/NS 1 GM/250 ML 1 GM/250 ML BAG IV SCH ×2 (09:45→21:42)
[2017-08-08] MEDS: CORDARONE PO SCH ×2 (10:00→22:47)
[2017-08-08] MEDS: ZESTRIL PO SCH (10:00)
[2017-08-08] MEDS: COREG PO SCH ×2 (10:00→22:48)
--- NOTE | 2017-08-08 13:29 | Progress Note ---
Assessment and Plan 71 y/o male with out of hospital cardiac arrest (Vfib/Vtach), with acute renal failure, and metabolic acidosis and now anoxic encephalopathy, not on sedation. 1. Continue Daily PSV trials 2. patient will need trach and peg placement, will discuss with this week 3. If she agrees will consult surgery for placement 4. LTACH will likely be the next step. Will follow up with neurology for any further recommendations. CCT 31 minutes. Subjective Date of service: 08/08/17 Principal diagnosis: cardiac arrest at home. Intubated and unresponcsive Interval history: Currently on PSV and tolerating. Remains unresponsive. went home to shower. Objective Vital Signs - 12hr 08/08/17 08/08/17 08/08/17 01:31 01:45 02:00 Temperature Pulse Rate 55 L 59 L 57 L Pulse Rate [ From Monitor] Respiratory 16 16 16 Rate Blood Pressure 141/77 141/77 162/81 O2 Sat by Pulse 97 95 95 Oximetry 08/08/17 08/08/17 08/08/17 02:15 02:31 02:45 Temperature Pulse Rate 57 L 56 L Pulse Rate [ From Monitor] Respiratory 17 14 Rate Blood Pressure 162/81 162/81 162/81 O2 Sat by Pulse 99 96 96 Oximetry 08/08/17 08/08/17 08/08/17 03:00 03:15 03:31 Temperature Pulse Rate 55 L 55 L 54 L Pulse Rate [ From Monitor] Respiratory 16 16 16 Rate Blood Pressure 144/81 162/81 162/81 O2 Sat by Pulse 93 96 96 Oximetry 08/08/17 08/08/17 08/08/17 03:45 03:53 04:00 Temperature 99.0 F Pulse Rate 62 Pulse Rate [ From Monitor] Respiratory 13 16 Rate Blood Pressure 162/81 O2 Sat by Pulse 94 98 Oximetry 08/08/17 08/08/17 08/08/17 04:01 04:15 04:31 Temperature Pulse Rate 55 L 55 L 55 L Pulse Rate [ From Monitor] Respiratory 16 15 16 Rate Blood Pressure 149/79 149/79 149/79 O2 Sat by Pulse 94 96 96 Oximetry 08/08/17 08/08/17 08/08/17 04:45 04:46 05:00 Temperature Pulse Rate 55 L 55 L 55 L Pulse Rate [ From Monitor] Respiratory 17 14 Rate Blood Pressure 149/79 149/79 149/82 O2 Sat by Pulse 96 96 92 Oximetry 08/08/17 08/08/17 08/08/17 05:15 05:31 05:45 Temperature Pulse Rate 55 L 59 L 55 L Pulse Rate [ From Monitor] Respiratory 17 14 16 Rate Blood Pressure 149/82 149/82 149/82 O2 Sat by Pulse 96 95 96 Oximetry 08/08/17 08/08/17 08/08/17 06:00 06:15 06:31 Temperature Pulse Rate 53 L 55 L 60 Pulse Rate [ From Monitor] Respiratory 16 16 16 Rate Blood Pressure 132/70 132/70 132/70 O2 Sat by Pulse 93 96 84 Oximetry 08/08/17 08/08/17 08/08/17 06:45 07:01 07:15 Temperature Pulse Rate 56 L 57 L 54 L Pulse Rate [ From Monitor] Respiratory 16 16 16 Rate Blood Pressure 132/70 146/80 146/80 O2 Sat by Pulse Oximetry 08/08/17 08/08/17 08/08/17 07:31 07:45 07:55 Temperature 99.2 F Pulse Rate 58 L 53 L Pulse Rate [ From Monitor] Respiratory 15 16 Rate Blood Pressure 146/80 146/80 O2 Sat by Pulse Oximetry 08/08/17 08/08/17 08/08/17 08:00 08:15 08:31 Temperature Pulse Rate 55 L 56 L 57 L Pulse Rate [ From Monitor] Respiratory 16 16 16 Rate Blood Pressure 152/80 152/80 152/80 O2 Sat by Pulse 100 Oximetry 08/08/17 08/08/17 08/08/17 08:35 08:45 08:46 Temperature Pulse Rate 57 L 57 L Pulse Rate [ 66 From Monitor] Respiratory 19 19 19 Rate Blood Pressure 152/80 161/80 O2 Sat by Pulse 96 95 95 Oximetry 08/08/17 08/08/17 08/08/17 09:00 09:15 09:31 Temperature Pulse Rate 57 L 55 L 57 L Pulse Rate [ From Monitor] Respiratory 18 17 17 Rate Blood Pressure 161/80 161/80 161/80 O2 Sat by Pulse 93 96 97 Oximetry 08/08/17 08/08/17 08/08/17 09:45 10:00 10:01 Temperature Pulse Rate 57 L 54 L 56 L Pulse Rate [ From Monitor] Respiratory 20 18 Rate Blood Pressure 161/80 159/81 O2 Sat by Pulse 96 96 Oximetry 08/08/17 08/08/17 08/08/17 10:15 10:31 10:45 Temperature Pulse Rate 56 L 53 L 54 L Pulse Rate [ From Monitor] Respiratory 18 16 16 Rate Blood Pressure 161/80 161/80 159/81 O2 Sat by Pulse 97 97 96 Oximetry 08/08/17 08/08/17 08/08/17 11:00 11:05 11:15 Temperature Pulse Rate 53 L 58 L 58 L Pulse Rate [ From Monitor] Respiratory 16 14 17 Rate Blood Pressure 137/72 137/72 137/72 O2 Sat by Pulse 94 95 97 Oximetry 08/08/17 08/08/17 08/08/17 11:31 11:36 11:43 Temperature 98.9 F Pulse Rate 56 L Pulse Rate [ 55 L From Monitor] Respiratory 17 17 Rate Blood Pressure 137/72 O2 Sat by Pulse 96 97 Oximetry 08/08/17 08/08/17 11:45 12:01 Temperature Pulse Rate 56 L 57 L Pulse Rate [ From Monitor] Respiratory 18 19 Rate Blood Pressure 137/72 140/77 O2 Sat by Pulse 97 95 Oximetry Constitutional: comatose (eyes open only when stimulated, not following commands , flaccid extremities), other (obese, breathing appears to be labored slightly on pressure support/CPAP) Eyes: non-icteric ENT: oropharynx moist Neck: supple, no JVD Effort: normal Ascultation: Bilateral: clear, diminished breath sounds Percussion: Bilateral: not dull Cardiovascular: regular rate and rhythm Gastrointestinal: normoactive bowel sounds, soft, non-tender, non-distended Integumentary: normal Extremities: no cyanosis, no edema, pink and warm Neurologic: other (see above) Psychiatric: other (unable to assess) CBC and BMP: 08/08/17 06:33 08/08/17 06:33 ABG, PT/INR, D-dimer: ABG POC ABG pH 7.490 (7.35-7.45) H 08/04/17 10:58 POC ABG pCO2 39.0 (35-45) 08/04/17 10:58 POC ABG pO2 71 (80-105) L 08/04/17 10:58 POC ABG HCO3 29.7 08/04/17 10:58 POC ABG Total CO2 31 08/04/17 10:58 POC ABG O2 Sat 95 08/04/17 10:58 PT/INR, D-dimer PT 15.6 Sec. (12.2-14.9) H 07/27/17 18:26 INR 1.18 (0.87-1.13) H 07/27/17 18:26 Abnormal lab findings: Abnormal Labs 07/27/17 07/27/17 07/27/17 18:26 18:26 18:26 WBC 15.6 H RBC Hgb Hct MCH MCHC Plt Count 115 L Lymph % (Auto) Kay % (Auto) Lymph # Kay # Seg Neutrophils % Lymphocytes % (Manual) 36.0 H Seg Neutrophils # Seg Neutrophils # Man 8.9 H Lymphocytes # (Manual) 5.6 H Monocytes # (Manual) 1.1 H PT 15.6 H INR 1.18 H APTT 38.5 H POC ABG pH POC ABG pCO2 POC ABG pO2 Sodium Potassium Chloride Carbon Dioxide 21 L BUN Creatinine Glucose 252 H POC Glucose Lactic Acid Calcium 7.7 L Phosphorus Total Creatine Kinase CK-MB (CK-2) CK-MB (CK-2) Rel Index Troponin T 0.090 H C-Reactive Protein Serum Total Protein Albumin Kaexx-5-Yniohdbjd Gamma Globulins PEP Interpretation Triglycerides 190 H LDL Cholesterol Direct 34 L HDL Cholesterol 21 L Urine WBC (Auto) Urine Creatinine Complement C3 Complement C4 07/27/17 07/27/17 07/27/17 19:02 19:25 21:43 WBC RBC Hgb Hct MCH MCHC Plt Count Lymph % (Auto) Kay % (Auto) Lymph # Kay # Seg Neutrophils % Lymphocytes % (Manual) Seg Neutrophils # Seg Neutrophils # Man Lymphocytes # (Manual) Monocytes # (Manual) PT INR APTT POC ABG pH 7.155 L POC ABG pCO2 47.7 H POC ABG pO2 229 H Sodium Potassium Chloride Carbon Dioxide BUN Creatinine Glucose POC Glucose Lactic Acid 6.00 H* Calcium Phosphorus Total Creatine Kinase CK-MB (CK-2) 4.8 H CK-MB (CK-2) Rel Index Troponin T 0.149 H* D C-Reactive Protein Serum Total Protein Albumin Lhifk-2-Kjcqahbay Gamma Globulins PEP Interpretation Triglycerides LDL Cholesterol Direct HDL Cholesterol Urine WBC (Auto) Urine Creatinine Complement C3 Complement C4 07/27/17 07/27/17 07/28/17 22:47 22:47 01:47 WBC RBC Hgb Hct MCH MCHC Plt Count Lymph % (Auto) Kay % (Auto) Lymph # Kay # Seg Neutrophils % Lymphocytes % (Manual) Seg Neutrophils # Seg Neutrophils # Man Lymphocytes # (Manual) Monocytes # (Manual) PT INR APTT POC ABG pH POC ABG pCO2 POC ABG pO2 Sodium Potassium Chloride Carbon Dioxide BUN Creatinine Glucose POC Glucose 199 H Lactic Acid 2.40 H* Calcium Phosphorus Total Creatine Kinase 222 H CK-MB (CK-2) 9.4 H CK-MB (CK-2) Rel Index 4.2 H Troponin T 0.852 H* D C-Reactive Protein Serum Total Protein Albumin Zlhkq-3-Yiqouvvfz Gamma Globulins PEP Interpretation Triglycerides LDL Cholesterol Direct HDL Cholesterol Urine WBC (Auto) Urine Creatinine Complement C3 Complement C4 07/28/17 07/28/17 07/28/17 05:29 05:44 05:44 WBC RBC Hgb Hct MCH MCHC Plt Count Lymph % (Auto) Kay % (Auto) Lymph # Kay # Seg Neutrophils % Lymphocytes % (Manual) Seg Neutrophils # Seg Neutrophils # Man Lymphocytes # (Manual) Monocytes # (Manual) PT INR APTT POC ABG pH 7.268 L POC ABG pCO2 34.8 L POC ABG pO2 Sodium 146 H Potassium 5.1 H D Chloride 113.3 H Carbon Dioxide 18 L BUN 29 H Creatinine 2.0 H D Glucose 194 H POC Glucose Lactic Acid 2.10 H* Calcium 6.8 L Phosphorus Total Creatine Kinase CK-MB (CK-2) CK-MB (CK-2) Rel Index Troponin T C-Reactive Protein Serum Total Protein Albumin Bvqfa-8-Wrdwueurj Gamma Globulins PEP Interpretation Triglycerides LDL Cholesterol Direct HDL Cholesterol Urine WBC (Auto) Urine Creatinine Complement C3 Complement C4 07/28/17 07/28/17 07/28/17 05:44 06:30 16:00 WBC 16.9 H RBC Hgb Hct MCH MCHC 31 L Plt Count Lymph % (Auto) 8.4 L Kay % (Auto) 7.5 H Lymph # Kay # 1.3 H Seg Neutrophils % 84.1 H Lymphocytes % (Manual) Seg Neutrophils # 14.2 H Seg Neutrophils # Man Lymphocytes # (Manual) Monocytes # (Manual) PT INR APTT POC ABG pH POC ABG pCO2 POC ABG pO2 Sodium 146 H Potassium Chloride Carbon Dioxide BUN Creatinine 2.4 H Glucose POC Glucose Lactic Acid Calcium Phosphorus Total Creatine Kinase 434 H CK-MB (CK-2) 10.8 H CK-MB (CK-2) Rel Index Troponin T 0.521 H* D C-Reactive Protein Serum Total Protein Albumin Glfrr-0-Mlkxvnexg Gamma Globulins PEP Interpretation Triglycerides LDL Cholesterol Direct HDL Cholesterol Urine WBC (Auto) Urine Creatinine Complement C3 Complement C4 07/28/17 07/28/17 07/28/17 16:00 16:00 16:20 WBC RBC Hgb Hct MCH MCHC Plt Count Lymph % (Auto) Kay % (Auto) Lymph # Kay # Seg Neutrophils % Lymphocytes % (Manual) Seg Neutrophils # Seg Neutrophils # Man Lymphocytes # (Manual) Monocytes # (Manual) PT INR APTT POC ABG pH POC ABG pCO2 POC ABG pO2 Sodium Potassium Chloride Carbon Dioxide BUN Creatinine Glucose POC Glucose Lactic Acid Calcium Phosphorus Total Creatine Kinase CK-MB (CK-2) CK-MB (CK-2) Rel Index Troponin T C-Reactive Protein Serum Total Protein Albumin Svgvn-1-Sickrntgq Gamma Globulins PEP Interpretation Triglycerides LDL Cholesterol Direct HDL Cholesterol Urine WBC (Auto) 12.0 H Urine Creatinine Complement C3 67 L Complement C4 14 L 07/28/17 07/29/17 07/29/17 16:20 04:02 05:00 WBC RBC Hgb Hct MCH MCHC Plt Count Lymph % (Auto) Kay % (Auto) Lymph # Kay # Seg Neutrophils % Lymphocytes % (Manual) Seg Neutrophils # Seg Neutrophils # Man Lymphocytes # (Manual) Monocytes # (Manual) PT INR APTT POC ABG pH 7.304 L POC ABG pCO2 31.6 L POC ABG pO2 Sodium Potassium Chloride 111.7 H Carbon Dioxide 18 L BUN 37 H Creatinine 2.1 H Glucose 213 H POC Glucose Lactic Acid Calcium 6.9 L Phosphorus Total Creatine Kinase CK-MB (CK-2) CK-MB (CK-2) Rel Index Troponin T C-Reactive Protein Serum Total Protein Albumin Afpke-9-Ghoqoodlu Gamma Globulins PEP Interpretation Triglycerides LDL Cholesterol Direct HDL Cholesterol Urine WBC (Auto) Urine Creatinine 58.4 H Complement C3 Complement C4 07/29/17 07/29/17 07/30/17 Unknown Unknown 04:07 WBC 14.4 H RBC Hgb Hct MCH MCHC Plt Count 125 L Lymph % (Auto) Kay % (Auto) Lymph # Kay # Seg Neutrophils % Lymphocytes % (Manual) Seg Neutrophils # Seg Neutrophils # Man Lymphocytes # (Manual) Monocytes # (Manual) PT INR APTT POC ABG pH 7.319 L POC ABG pCO2 27.8 L POC ABG pO2 121 H Sodium Potassium Chloride Carbon Dioxide BUN Creatinine Glucose POC Glucose Lactic Acid Calcium Phosphorus Total Creatine Kinase CK-MB (CK-2) CK-MB (CK-2) Rel Index Troponin T C-Reactive Protein Serum Total Protein 4.9 L Albumin 2.9 L Bybkl-8-Bgmrjqkgi 0.4 H Gamma Globulins 0.5 L PEP Interpretation see below H Triglycerides LDL Cholesterol Direct HDL Cholesterol Urine WBC (Auto) Urine Creatinine Complement C3 Complement C4 07/30/17 07/30/17 07/30/17 12:43 17:22 23:27 WBC RBC Hgb Hct MCH MCHC Plt Count Lymph % (Auto) Kay % (Auto) Lymph # Kay # Seg Neutrophils % Lymphocytes % (Manual) Seg Neutrophils # Seg Neutrophils # Man Lymphocytes # (Manual) Monocytes # (Manual) PT INR APTT POC ABG pH POC ABG pCO2 POC ABG pO2 Sodium Potassium Chloride Carbon Dioxide BUN Creatinine Glucose POC Glucose 134 H 117 H 173 H Lactic Acid Calcium Phosphorus Total Creatine Kinase CK-MB (CK-2) CK-MB (CK-2) Rel Index Troponin T C-Reactive Protein Serum Total Protein Albumin Tfruz-0-Pgqyzmbtb Gamma Globulins PEP Interpretation Triglycerides LDL Cholesterol Direct HDL Cholesterol Urine WBC (Auto) Urine Creatinine Complement C3 Complement C4 07/30/17 07/30/17 07/31/17 Unknown Unknown 04:13 WBC 15.6 H RBC Hgb Hct MCH MCHC Plt Count 117 L Lymph % (Auto) Kay % (Auto) Lymph # Kay # Seg Neutrophils % Lymphocytes % (Manual) Seg Neutrophils # Seg Neutrophils # Man Lymphocytes # (Manual) Monocytes # (Manual) PT INR APTT POC ABG pH POC ABG pCO2 26.8 L POC ABG pO2 74 L Sodium 146 H Potassium Chloride 113.8 H Carbon Dioxide 18 L BUN 36 H Creatinine 1.8 H Glucose 177 H POC Glucose Lactic Acid Calcium 6.9 L Phosphorus Total Creatine Kinase CK-MB (CK-2) CK-MB (CK-2) Rel Index Troponin T C-Reactive Protein Serum Total Protein Albumin Xpinr-7-Ifyvjkssk Gamma Globulins PEP Interpretation Triglycerides LDL Cholesterol Direct HDL Cholesterol Urine WBC (Auto) Urine Creatinine Complement C3 Complement C4 07/31/17 07/31/17 07/31/17 05:00 05:00 05:01 WBC 18.5 H RBC Hgb Hct MCH MCHC Plt Count 135 L Lymph % (Auto) Kay % (Auto) Lymph # Kay # Seg Neutrophils % Lymphocytes % (Manual) Seg Neutrophils # Seg Neutrophils # Man Lymphocytes # (Manual) Monocytes # (Manual) PT INR APTT POC ABG pH POC ABG pCO2 POC ABG pO2 Sodium 148 H Potassium Chloride 112.8 H Carbon Dioxide 20 L BUN 33 H Creatinine 1.6 H Glucose 188 H POC Glucose 219 H Lactic Acid Calcium 7.1 L Phosphorus Total Creatine Kinase CK-MB (CK-2) CK-MB (CK-2) Rel Index Troponin T C-Reactive Protein Serum Total Protein Albumin Ednhy-4-Vsxbbyrcc Gamma Globulins PEP Interpretation Triglycerides LDL Cholesterol Direct HDL Cholesterol Urine WBC (Auto) Urine Creatinine Complement C3 Complement C4 07/31/17 07/31/17 08/01/17 14:36 17:57 00:02 WBC RBC Hgb Hct MCH MCHC Plt Count Lymph % (Auto) Kay % (Auto) Lymph # Kay # Seg Neutrophils % Lymphocytes % (Manual) Seg Neutrophils # Seg Neutrophils # Man Lymphocytes # (Manual) Monocytes # (Manual) PT INR APTT POC ABG pH POC ABG pCO2 POC ABG pO2 Sodium Potassium Chloride Carbon Dioxide BUN Creatinine Glucose POC Glucose 199 H 216 H 131 H Lactic Acid Calcium Phosphorus Total Creatine Kinase CK-MB (CK-2) CK-MB (CK-2) Rel Index Troponin T C-Reactive Protein Serum Total Protein Albumin Juymg-0-Xcqrzbwne Gamma Globulins PEP Interpretation Triglycerides LDL Cholesterol Direct HDL Cholesterol Urine WBC (Auto) Urine Creatinine Complement C3 Complement C4 08/01/17 08/01/17 08/01/17 03:22 04:10 04:10 WBC 19.3 H RBC Hgb Hct MCH MCHC Plt Count 129 L Lymph % (Auto) Kay % (Auto) Lymph # Kay # Seg Neutrophils % Lymphocytes % (Manual) Seg Neutrophils # Seg Neutrophils # Man Lymphocytes # (Manual) Monocytes # (Manual) PT INR APTT POC ABG pH 7.481 H POC ABG pCO2 29.6 L POC ABG pO2 65 L Sodium 148 H Potassium Chloride 113.2 H Carbon Dioxide 21 L BUN 29 H Creatinine Glucose 173 H POC Glucose Lactic Acid Calcium 7.3 L Phosphorus Total Creatine Kinase CK-MB (CK-2) CK-MB (CK-2) Rel Index Troponin T C-Reactive Protein Serum Total Protein Albumin Ifjko-0-Qyoxxrqhx Gamma Globulins PEP Interpretation Triglycerides LDL Cholesterol Direct HDL Cholesterol Urine WBC (Auto) Urine Creatinine Complement C3 Complement C4 08/01/17 08/01/17 08/01/17 05:18 11:55 18:13 WBC RBC Hgb Hct MCH MCHC Plt Count Lymph % (Auto) Kay % (Auto) Lymph # Kay # Seg Neutrophils % Lymphocytes % (Manual) Seg Neutrophils # Seg Neutrophils # Man Lymphocytes # (Manual) Monocytes # (Manual) PT INR APTT POC ABG pH POC ABG pCO2 POC ABG pO2 Sodium Potassium Chloride Carbon Dioxide BUN Creatinine Glucose POC Glucose 179 H 174 H 189 H Lactic Acid Calcium Phosphorus Total Creatine Kinase CK-MB (CK-2) CK-MB (CK-2) Rel Index Troponin T C-Reactive Protein Serum Total Protein Albumin Yukzg-4-Hyeeibyoy Gamma Globulins PEP Interpretation Triglycerides LDL Cholesterol Direct HDL Cholesterol Urine WBC (Auto) Urine Creatinine Complement C3 Complement C4 08/01/17 08/01/17 08/02/17 19:42 22:01 00:01 WBC RBC Hgb Hct MCH MCHC Plt Count Lymph % (Auto) Kay % (Auto) Lymph # Kay # Seg Neutrophils % Lymphocytes % (Manual) Seg Neutrophils # Seg Neutrophils # Man Lymphocytes # (Manual) Monocytes # (Manual) PT INR APTT POC ABG pH POC ABG pCO2 POC ABG pO2 Sodium Potassium Chloride Carbon Dioxide BUN Creatinine Glucose POC Glucose 165 H 129 H Lactic Acid Calcium Phosphorus Total Creatine Kinase CK-MB (CK-2) CK-MB (CK-2) Rel Index Troponin T C-Reactive Protein 4.00 H Serum Total Protein Albumin Frgyh-6-Thceuuuqx Gamma Globulins PEP Interpretation Triglycerides LDL Cholesterol Direct HDL Cholesterol Urine WBC (Auto) Urine Creatinine Complement C3 Complement C4 08/02/17 08/02/17 08/02/17 03:40 04:10 06:00 WBC RBC Hgb Hct MCH MCHC Plt Count Lymph % (Auto) Kay % (Auto) Lymph # Kay # Seg Neutrophils % Lymphocytes % (Manual) Seg Neutrophils # Seg Neutrophils # Man Lymphocytes # (Manual) Monocytes # (Manual) PT INR APTT POC ABG pH 7.474 H POC ABG pCO2 33.8 L POC ABG pO2 73 L Sodium 148 H Potassium Chloride 109.3 H Carbon Dioxide BUN 31 H Creatinine Glucose 168 H POC Glucose 172 H Lactic Acid Calcium 6.8 L Phosphorus Total Creatine Kinase CK-MB (CK-2) CK-MB (CK-2) Rel Index Troponin T C-Reactive Protein Serum Total Protein Albumin Xjugs-1-Faxewyjyt Gamma Globulins PEP Interpretation Triglycerides LDL Cholesterol Direct HDL Cholesterol Urine WBC (Auto) Urine Creatinine Complement C3 Complement C4 08/02/17 08/02/17 08/02/17 07:09 11:25 17:46 WBC 20.1 H RBC Hgb 11.7 L Hct MCH MCHC Plt Count 127 L Lymph % (Auto) Kay % (Auto) Lymph # Kay # Seg Neutrophils % Lymphocytes % (Manual) Seg Neutrophils # Seg Neutrophils # Man Lymphocytes # (Manual) Monocytes # (Manual) PT INR APTT POC ABG pH POC ABG pCO2 POC ABG pO2 Sodium Potassium Chloride Carbon Dioxide BUN Creatinine Glucose POC Glucose 159 H 171 H Lactic Acid Calcium Phosphorus Total Creatine Kinase CK-MB (CK-2) CK-MB (CK-2) Rel Index Troponin T C-Reactive Protein Serum Total Protein Albumin Latwn-7-Barcauncz Gamma Globulins PEP Interpretation Triglycerides LDL Cholesterol Direct HDL Cholesterol Urine WBC (Auto) Urine Creatinine Complement C3 Complement C4 08/02/17 08/03/17 08/03/17 22:30 00:05 03:29 WBC RBC Hgb Hct MCH MCHC Plt Count Lymph % (Auto) Kay % (Auto) Lymph # Kay # Seg Neutrophils % Lymphocytes % (Manual) Seg Neutrophils # Seg Neutrophils # Man Lymphocytes # (Manual) Monocytes # (Manual) PT INR APTT POC ABG pH POC ABG pCO2 POC ABG pO2 Sodium 148 H Potassium Chloride 109.1 H Carbon Dioxide BUN 32 H Creatinine Glucose 179 H POC Glucose 179 H 199 H Lactic Acid Calcium 6.9 L Phosphorus Total Creatine Kinase CK-MB (CK-2) CK-MB (CK-2) Rel Index Troponin T C-Reactive Protein Serum Total Protein Albumin Qxhwr-0-Oqxzvslmp Gamma Globulins PEP Interpretation Triglycerides LDL Cholesterol Direct HDL Cholesterol Urine WBC (Auto) Urine Creatinine Complement C3 Complement C4 08/03/17 08/03/17 08/03/17 03:29 05:40 06:01 WBC 19.9 H RBC Hgb Hct MCH MCHC Plt Count 130 L Lymph % (Auto) 7.0 L Kay % (Auto) 11.1 H Lymph # Kay # 2.2 H Seg Neutrophils % 81.4 H Lymphocytes % (Manual) Seg Neutrophils # 16.2 H Seg Neutrophils # Man Lymphocytes # (Manual) Monocytes # (Manual) PT INR APTT POC ABG pH 7.468 H POC ABG pCO2 POC ABG pO2 70 L Sodium Potassium Chloride Carbon Dioxide BUN Creatinine Glucose POC Glucose 179 H Lactic Acid Calcium Phosphorus Total Creatine Kinase CK-MB (CK-2) CK-MB (CK-2) Rel Index Troponin T C-Reactive Protein Serum Total Protein Albumin Aebwp-3-Yvctlnriv Gamma Globulins PEP Interpretation Triglycerides LDL Cholesterol Direct HDL Cholesterol Urine WBC (Auto) Urine Creatinine Complement C3 Complement C4 08/03/17 08/03/17 08/04/17 11:43 17:34 00:02 WBC RBC Hgb Hct MCH MCHC Plt Count Lymph % (Auto) Kay % (Auto) Lymph # Kay # Seg Neutrophils % Lymphocytes % (Manual) Seg Neutrophils # Seg Neutrophils # Man Lymphocytes # (Manual) Monocytes # (Manual) PT INR APTT POC ABG pH POC ABG pCO2 POC ABG pO2 Sodium Potassium Chloride Carbon Dioxide BUN Creatinine Glucose POC Glucose 166 H 193 H 191 H Lactic Acid Calcium Phosphorus Total Creatine Kinase CK-MB (CK-2) CK-MB (CK-2) Rel Index Troponin T C-Reactive Protein Serum Total Protein Albumin Tgrjo-5-Obvppirfl Gamma Globulins PEP Interpretation Triglycerides LDL Cholesterol Direct HDL Cholesterol Urine WBC (Auto) Urine Creatinine Complement C3 Complement C4 08/04/17 08/04/17 08/04/17 05:18 05:44 05:44 WBC 16.8 H RBC Hgb 11.7 L Hct MCH 27 L MCHC Plt Count Lymph % (Auto) 5.0 L Kay % (Auto) 9.5 H Lymph # 0.8 L Kay # 1.6 H Seg Neutrophils % 84.7 H Lymphocytes % (Manual) Seg Neutrophils # 14.2 H Seg Neutrophils # Man Lymphocytes # (Manual) Monocytes # (Manual) PT INR APTT POC ABG pH POC ABG pCO2 POC ABG pO2 Sodium 148 H Potassium Chloride 108.1 H Carbon Dioxide BUN 31 H Creatinine Glucose 181 H POC Glucose 173 H Lactic Acid Calcium 7.6 L Phosphorus Total Creatine Kinase CK-MB (CK-2) CK-MB (CK-2) Rel Index Troponin T C-Reactive Protein Serum Total Protein Albumin Slizh-6-Mvgpuseaq Gamma Globulins PEP Interpretation Triglycerides LDL Cholesterol Direct HDL Cholesterol Urine WBC (Auto) Urine Creatinine Complement C3 Complement C4 08/04/17 08/04/17 08/04/17 10:58 12:34 17:35 WBC RBC Hgb Hct MCH MCHC Plt Count Lymph % (Auto) Kay % (Auto) Lymph # Kay # Seg Neutrophils % Lymphocytes % (Manual) Seg Neutrophils # Seg Neutrophils # Man Lymphocytes # (Manual) Monocytes # (Manual) PT INR APTT POC ABG pH 7.490 H POC ABG pCO2 POC ABG pO2 71 L Sodium Potassium Chloride Carbon Dioxide BUN Creatinine Glucose POC Glucose 191 H 188 H Lactic Acid Calcium Phosphorus Total Creatine Kinase CK-MB (CK-2) CK-MB (CK-2) Rel Index Troponin T C-Reactive Protein Serum Total Protein Albumin Apgdt-0-Sbbfvxjpe Gamma Globulins PEP Interpretation Triglycerides LDL Cholesterol Direct HDL Cholesterol Urine WBC (Auto) Urine Creatinine Complement C3 Complement C4 08/05/17 08/05/17 08/05/17 00:00 05:32 07:34 WBC 14.4 H RBC Hgb 10.6 L Hct 32.3 L MCH MCHC Plt Count Lymph % (Auto) 6.7 L Kay % (Auto) 8.6 H Lymph # 1.0 L Kay # 1.2 H Seg Neutrophils % 81.8 H Lymphocytes % (Manual) Seg Neutrophils # 11.8 H Seg Neutrophils # Man Lymphocytes # (Manual) Monocytes # (Manual) PT INR APTT POC ABG pH POC ABG pCO2 POC ABG pO2 Sodium Potassium Chloride Carbon Dioxide BUN Creatinine Glucose POC Glucose 216 H 240 H Lactic Acid Calcium Phosphorus Total Creatine Kinase CK-MB (CK-2) CK-MB (CK-2) Rel Index Troponin T C-Reactive Protein Serum Total Protein Albumin Iurey-7-Eksmpbiwl Gamma Globulins PEP Interpretation Triglycerides LDL Cholesterol Direct HDL Cholesterol Urine WBC (Auto) Urine Creatinine Complement C3 Complement C4 08/05/17 08/05/17 08/05/17 07:34 12:36 17:51 WBC RBC Hgb Hct MCH MCHC Plt Count Lymph % (Auto) Kay % (Auto) Lymph # Kay # Seg Neutrophils % Lymphocytes % (Manual) Seg Neutrophils # Seg Neutrophils # Man Lymphocytes # (Manual) Monocytes # (Manual) PT INR APTT POC ABG pH POC ABG pCO2 POC ABG pO2 Sodium 148 H Potassium Chloride 107.7 H Carbon Dioxide BUN 32 H Creatinine Glucose 241 H POC Glucose 206 H 190 H Lactic Acid Calcium 7.6 L Phosphorus 1.90 L Total Creatine Kinase CK-MB (CK-2) CK-MB (CK-2) Rel Index Troponin T C-Reactive Protein Serum Total Protein Albumin Bhxls-3-Gxrvqofin Gamma Globulins PEP Interpretation Triglycerides LDL Cholesterol Direct HDL Cholesterol Urine WBC (Auto) Urine Creatinine Complement C3 Complement C4 08/05/17 08/06/17 08/06/17 22:11 00:35 04:34 WBC 16.2 H RBC Hgb 11.6 L Hct MCH MCHC Plt Count Lymph % (Auto) 5.8 L Kay % (Auto) 9.3 H Lymph # 0.9 L Kay # 1.5 H Seg Neutrophils % 83.5 H Lymphocytes % (Manual) Seg Neutrophils # 13.5 H Seg Neutrophils # Man Lymphocytes # (Manual) Monocytes # (Manual) PT INR APTT POC ABG pH POC ABG pCO2 POC ABG pO2 Sodium Potassium Chloride Carbon Dioxide BUN Creatinine Glucose POC Glucose 169 H 191 H Lactic Acid Calcium Phosphorus Total Creatine Kinase CK-MB (CK-2) CK-MB (CK-2) Rel Index Troponin T C-Reactive Protein Serum Total Protein Albumin [id number] Gamma Globulins PEP Interpretation Triglycerides LDL Cholesterol Direct HDL Cholesterol Urine WBC (Auto) Urine Creatinine Complement C3 Complement C4 08/06/17 08/06/17 08/06/17 04:34 05:44 11:45 WBC RBC Hgb Hct MCH MCHC Plt Count Lymph % (Auto) Kay % (Auto) Lymph # Kay # Seg Neutrophils % Lymphocytes % (Manual) Seg Neutrophils # Seg Neutrophils # Man Lymphocytes # (Manual) Monocytes # (Manual) PT INR APTT POC ABG pH POC ABG pCO2 POC ABG pO2 Sodium Potassium Chloride Carbon Dioxide BUN 30 H Creatinine Glucose 241 H POC Glucose 223 H 239 H Lactic Acid Calcium 8.0 L Phosphorus Total Creatine Kinase CK-MB (CK-2) CK-MB (CK-2) Rel Index Troponin T C-Reactive Protein Serum Total Protein Albumin Yiyag-3-Dxelbdkok Gamma Globulins PEP Interpretation Triglycerides LDL Cholesterol Direct HDL Cholesterol Urine WBC (Auto) Urine Creatinine Complement C3 Complement C4 08/06/17 08/06/17 08/07/17 17:55 23:43 05:24 WBC 13.5 H RBC 3.58 L Hgb 10.4 L Hct 31.4 L MCH MCHC Plt Count Lymph % (Auto) 5.8 L Kay % (Auto) 8.7 H Lymph # 0.8 L Kay # 1.2 H Seg Neutrophils % 83.2 H Lymphocytes % (Manual) Seg Neutrophils # 11.2 H Seg Neutrophils # Man Lymphocytes # (Manual) Monocytes # (Manual) PT INR APTT POC ABG pH POC ABG pCO2 POC ABG pO2 Sodium Potassium Chloride Carbon Dioxide BUN Creatinine Glucose POC Glucose 227 H 243 H Lactic Acid Calcium Phosphorus Total Creatine Kinase CK-MB (CK-2) CK-MB (CK-2) Rel Index Troponin T C-Reactive Protein Serum Total Protein Albumin Qecxt-7-Ltlukiqbc Gamma Globulins PEP Interpretation Triglycerides LDL Cholesterol Direct HDL Cholesterol Urine WBC (Auto) Urine Creatinine Complement C3 Complement C4 08/07/17 08/07/17 08/07/17 05:24 05:38 18:16 WBC RBC Hgb Hct MCH MCHC Plt Count Lymph % (Auto) Kay % (Auto) Lymph # Kay # Seg Neutrophils % Lymphocytes % (Manual) Seg Neutrophils # Seg Neutrophils # Man Lymphocytes # (Manual) Monocytes # (Manual) PT INR APTT POC ABG pH POC ABG pCO2 POC ABG pO2 Sodium Potassium Chloride Carbon Dioxide BUN 28 H Creatinine Glucose 184 H POC Glucose 192 H 189 H Lactic Acid Calcium 7.8 L Phosphorus Total Creatine Kinase CK-MB (CK-2) CK-MB (CK-2) Rel Index Troponin T C-Reactive Protein Serum Total Protein Albumin Kgzsg-0-Silinurbe Gamma Globulins PEP Interpretation Triglycerides LDL Cholesterol Direct HDL Cholesterol Urine WBC (Auto) Urine Creatinine Complement C3 Complement C4 08/08/17 08/08/17 08/08/17 00:03 06:23 06:33 WBC 14.8 H RBC Hgb 11.0 L Hct 33.7 L MCH MCHC Plt Count Lymph % (Auto) 7.6 L Kay % (Auto) 9.9 H Lymph # 1.1 L Kay # 1.5 H Seg Neutrophils % 80.4 H Lymphocytes % (Manual) Seg Neutrophils # 11.9 H Seg Neutrophils # Man Lymphocytes # (Manual) Monocytes # (Manual) PT INR APTT POC ABG pH POC ABG pCO2 POC ABG pO2 Sodium Potassium Chloride Carbon Dioxide BUN Creatinine Glucose POC Glucose 205 H 173 H Lactic Acid Calcium Phosphorus Total Creatine Kinase CK-MB (CK-2) CK-MB (CK-2) Rel Index Troponin T C-Reactive Protein Serum Total Protein Albumin Tilde-1-Iqjvimqcs Gamma Globulins PEP Interpretation Triglycerides LDL Cholesterol Direct HDL Cholesterol Urine WBC (Auto) Urine Creatinine Complement C3 Complement C4 08/08/17 06:33 WBC RBC Hgb Hct MCH MCHC Plt Count Lymph % (Auto) Kay % (Auto) Lymph # Kay # Seg Neutrophils % Lymphocytes % (Manual) Seg Neutrophils # Seg Neutrophils # Man Lymphocytes # (Manual) Monocytes # (Manual) PT INR APTT POC ABG pH POC ABG pCO2 POC ABG pO2 Sodium Potassium Chloride Carbon Dioxide BUN 29 H Creatinine Glucose 195 H POC Glucose Lactic Acid Calcium 8.2 L Phosphorus Total Creatine Kinase CK-MB (CK-2) CK-MB (CK-2) Rel Index Troponin T C-Reactive Protein Serum Total Protein Albumin Cjupi-5-Vvtqupekf Gamma Globulins PEP Interpretation Triglycerides LDL Cholesterol Direct HDL Cholesterol Urine WBC (Auto) Urine Creatinine Complement C3 Complement C4
--- NOTE | 2017-08-08 14:00 | Progress Note ---
Assessment and Plan - Patient Problems (1) Cardiac arrest Current Visit: Yes Status: Acute Plan to address problem: Patient is status post out of hospital cardiopulmonary arrest. Cardiac arrest was manifested by ventricular fibrillation. Post resuscitation, has remained stable sinus rhythm on IV and now oral amiodarone. He has a history of coronary artery disease, previous coronary artery bypass, ischemic cardiomyopathy. He is reported to have declined a recommendation for prophylactic ICD by his doctors at [facility]. We'll continue supportive care for his hemodynamics and continue anti-ischemic cardiac medications as tolerated. Neurology consultation and follow-up is in place for his neuro status assessment. Subjective Date of service: 08/08/17 Principal diagnosis: cardiac arrest at home. Intubated and unresponcsive Interval history: Patient is unresponsive, on the vent, stable sinus rhythm on machine sand mixer. Objective Vital Signs Temp Pulse Pulse Resp BP Pulse Ox 08/08/17 12:01 57 L 19 140/77 95 08/08/17 11:45 56 L 18 137/72 97 08/08/17 11:43 98.9 F 08/08/17 11:36 55 L 17 97 08/08/17 11:31 56 L 17 137/72 96 08/08/17 11:15 58 L 17 137/72 97 08/08/17 11:05 58 L 14 137/72 95 08/08/17 11:00 53 L 16 137/72 94 08/08/17 10:45 54 L 16 159/81 96 08/08/17 10:31 53 L 16 161/80 97 08/08/17 10:15 56 L 18 161/80 97 08/08/17 10:01 56 L 18 159/81 96 08/08/17 10:00 54 L 08/08/17 09:45 57 L 20 161/80 96 08/08/17 09:31 57 L 17 161/80 97 08/08/17 09:15 55 L 17 161/80 96 08/08/17 09:00 57 L 18 161/80 93 08/08/17 08:46 57 L 19 161/80 95 08/08/17 08:45 57 L 19 152/80 95 08/08/17 08:35 66 19 96 08/08/17 08:31 57 L 16 152/80 100 08/08/17 08:15 56 L 16 152/80 08/08/17 08:00 55 L 16 152/80 08/08/17 07:55 99.2 F 08/08/17 07:45 53 L 16 146/80 08/08/17 07:31 58 L 15 146/80 08/08/17 07:15 54 L 16 146/80 08/08/17 07:01 57 L 16 146/80 08/08/17 06:45 56 L 16 132/70 08/08/17 06:31 60 16 132/70 84 08/08/17 06:15 55 L 16 132/70 96 08/08/17 06:00 53 L 16 132/70 93 08/08/17 05:45 55 L 16 149/82 96 08/08/17 05:31 59 L 14 149/82 95 08/08/17 05:15 55 L 17 149/82 96 08/08/17 05:00 55 L 14 149/82 92 08/08/17 04:46 55 L 149/79 96 08/08/17 04:45 55 L 17 149/79 96 08/08/17 04:31 55 L 16 149/79 96 08/08/17 04:15 55 L 15 149/79 96 08/08/17 04:01 55 L 16 149/79 94 08/08/17 04:00 99.0 F 08/08/17 03:53 16 98 08/08/17 03:45 62 13 162/81 94 08/08/17 03:31 54 L 16 162/81 96 08/08/17 03:15 55 L 16 162/81 96 08/08/17 03:00 55 L 16 144/81 93 08/08/17 02:45 56 L 14 162/81 96 08/08/17 02:31 57 L 17 162/81 96 08/08/17 02:15 162/81 99 08/08/17 02:00 57 L 16 162/81 95 08/08/17 01:45 59 L 16 141/77 95 08/08/17 01:31 55 L 16 141/77 97 08/08/17 01:15 55 L 16 141/77 96 08/08/17 01:00 55 L 17 141/77 94 08/08/17 00:45 57 L 15 139/77 95 08/08/17 00:31 56 L 16 139/77 96 08/08/17 00:15 60 14 139/77 96 08/08/17 00:00 98.8 F 56 L 16 139/77 93 08/07/17 23:45 56 L 16 148/86 96 08/07/17 23:30 58 L 17 148/86 96 08/07/17 23:27 59 L 140/80 95 08/07/17 23:15 56 L 18 148/86 96 08/07/17 23:01 62 14 148/86 95 08/07/17 22:45 56 L 17 140/80 95 08/07/17 22:31 55 L 16 140/80 95 08/07/17 22:15 57 L 14 140/80 95 08/07/17 22:00 55 L 16 140/80 92 08/07/17 21:45 54 L 16 143/81 95 08/07/17 21:31 53 L 16 143/81 95 08/07/17 21:15 53 L 16 143/81 95 08/07/17 21:00 53 L 16 143/81 93 08/07/17 20:45 54 L 16 143/86 95 08/07/17 20:31 54 L 16 143/86 95 08/07/17 20:15 54 L 16 143/86 95 08/07/17 20:00 98.9 F 58 L 18 143/86 93 08/07/17 19:53 56 L 153/77 96 08/07/17 19:45 62 19 153/77 95 08/07/17 19:31 55 L 19 153/77 96 08/07/17 19:15 55 L 14 153/77 96 08/07/17 19:00 57 L 16 153/77 93 08/07/17 18:45 55 L 18 143/79 96 08/07/17 18:31 55 L 19 143/79 96 08/07/17 18:15 55 L 18 143/79 96 08/07/17 18:13 54 L 18 143/79 96 08/07/17 18:00 55 L 20 143/79 93 08/07/17 17:54 54 L 18 146/72 96 08/07/17 17:45 55 L 19 146/72 96 08/07/17 17:31 55 L 19 146/72 95 08/07/17 17:15 55 L 17 146/72 95 08/07/17 17:00 54 L 18 146/72 93 08/07/17 16:45 54 L 17 144/72 95 08/07/17 16:31 54 L 18 144/72 96 08/07/17 16:15 55 L 17 144/72 96 08/07/17 16:13 54 L 19 144/72 96 08/07/17 16:01 56 L 19 144/72 94 08/07/17 16:00 98.6 F 08/07/17 15:45 54 L 18 132/67 96 08/07/17 15:31 53 L 18 132/67 96 08/07/17 15:15 55 L 19 132/67 96 08/07/17 15:00 53 L 17 132/67 93 08/07/17 14:45 53 L 18 133/73 95 08/07/17 14:31 56 L 17 133/73 96 08/07/17 14:15 58 L 19 133/73 95 08/07/17 14:00 57 L 17 133/73 94 - Physical Examination General: Other (intubated on the vent) Neck: Positive: neck supple, trachea midline. Negative: JVD/HJR, Masses Cardiac: Positive: Reg Rate and Rhythm Lungs: Positive: Decreased Breath Sounds Neuro: Positive: Other (unresponsive on the vent) Abdomen: Positive: Soft Skin: Positive: Clear Extremities: Absent: edema - Labs and Meds CBC 08/08/17 Range/Units 06:33 WBC 14.8 H (4.5-11.0) K/mm3 RBC 3.86 (3.65-5.03) M/mm3 Hgb 11.0 L (11.8-15.2) gm/dl Hct 33.7 L (35.5-45.6) % Plt Count 219 (140-440) K/mm3 Lymph # 1.1 L (1.2-5.4) K/mm3 [place] # 1.5 H (0.0-0.8) K/mm3 Eos # 0.2 (0.0-0.4) K/mm3 Baso # 0.1 (0.0-0.1) K/mm3 Comprehensive Metabolic Panel 08/08/17 Range/Units 06:33 Sodium 141 (137-145) mmol/L Potassium 3.8 (3.6-5.0) mmol/L Chloride 101.6 (98-107) mmol/L Carbon Dioxide 28 (22-30) mmol/L BUN 29 H (9-20) mg/dL Creatinine 0.9 (0.8-1.5) mg/dL Glucose 195 H (75-100) mg/dL Calcium 8.2 L (8.4-10.2) mg/dL - Imaging and Cardiology EKG: image reviewed
--- NOTE | 2017-08-08 18:02 | Progress Note ---
Assessment and Plan Assessment and plan: 71 year old man with history of CAD, CHF was brought to the emergency room after he had a cardiac arrest at home. He had a cough productive of yellow phlegm, fever 3 days. EMS was called, CPR was continued for another 40 minutes prior to arrival in the emergency room, he had a V. fib or V. tach rhythm for which he was shocked per EMS. CPR was continued in the emergency room, he was hypotensive and placed on levophed and vasopressin. Remains unresponsive. Neurologist evaaluated him EEG no active seizure. Showed slow waves Cardio-resp arrest at home. - Patient is comatose, on amiodarone Persistent vegetative state - Patient admitted PEG and trach placement Shock. Cardiogenic +/- septic shock. V fib sp shock off vasopressor, BP is stable. -Apparently, patient declined ICD 30 days ago Acute hypoxic Respiratory failure on MV >96 hours -continue vent management Ischemic cardiomyopathy, LVEF 15-20% - CAD s/p CABG 2005 at [place] - ONEILL to LAD; COREY to RI; SVG to PLOM; SVG to RV branch and PDA branch Non-specific troponin - Not consistent with ACS Acute kidney Injury due to acute tubular necrosis - Resolved CAD s/p CABG. cardiology note reviewed and appreciated Continue carvedilol, aspirin, lisinopril Ischemic cardiomyopathy: EF 15 - 20 % - Patient had declined AICD placement by his hold worker at [place] Anoxic Encephalopathy: - Secondary to cardiac arrest. - Anoxic encephalopathy. EEG showed no active seizure, slow waves - Dr. Brown following Hypernatremia - Resolved Leukocytosis: From presumed aspiration pneumonia versus community acquired pneumonia. Blood cultures no growth to date. Continue Zosyn/ vanco ID following Pneumonia/Septic shock: left lobar, likely aspiration Blood culture so far are neg. continue abx -influenza neg, legionella neg, Strep pneumoniae neg -crp=4 -repeat resp cx 08/01 +MRSA (likely a colonizer) Hyperglycemia: Monitor blood sugars with sliding scale coverage for now - Full code status - Prophylaxis with Lovenox, GI with Pepcid. The high probability of a clinically significant, sudden or life threatening deterioration of the [cv, neuro, renal, pulmonary] system(s) required my full and direct attention, intervention and personal management. The aggregate critical care time was [32] minutes. This time is in addition to time spent performing reported procedures but includes the following: [x] Data Review and interpretation [x] Patient assessment and monitoring of vital signs [x] Documentation [x] Medication orders and management History Interval history: Patient was seen and evaluated this morning, patient is non communicative. Discussed the management plan with his . Hospitalist Physical - Physical exam Narrative exam: Patient was on mechanical ventilation, currently on CPAP trial. The patient appeared well nourished and normally developed. Vital signs as documented. Head exam is unremarkable. No scleral icterus . Neck is without jugular venous distension, thyromegaly, or carotid bruits. Lungs are clear to auscultation. Cardiac exam reveals regular rate and Rhythm. First and second heart sounds normal. No murmurs, rubs or gallops. Abdominal exam reveals normal bowel sounds, no masses, no organomegaly and no aortic enlargement. Extremities are nonedematous and both femoral and pedal pulses are normal. CIRCULATION MANAGER: Comatose. - Constitutional Vitals: Temp Pulse Resp BP Pulse Ox 99.0 F 57 L 20 136/88 97 08/08/17 16:00 08/08/17 17:15 08/08/17 17:15 08/08/17 17:15 08/08/17 17:15 General appearance: Present: no acute distress, well-nourished (intubated and vent supported), other Results - Labs CBC & Chem 7: 08/08/17 06:33 08/08/17 06:33 Labs: Laboratory Last Values WBC 14.8 K/mm3 (4.5-11.0) H 08/08/17 06:33 RBC 3.86 M/mm3 (3.65-5.03) 08/08/17 06:33 Hgb 11.0 gm/dl (11.8-15.2) L 08/08/17 06:33 Hct 33.7 % (35.5-45.6) L 08/08/17 06:33 MCV 87 fl (84-94) 08/08/17 06:33 MCH 28 pg (28-32) 08/08/17 06:33 MCHC 33 % (32-34) 08/08/17 06:33 RDW 14.8 % (13.2-15.2) 08/08/17 06:33 Plt Count 219 K/mm3 (140-440) 08/08/17 06:33 Lymph % (Auto) 7.6 % (13.4-35.0) L 08/08/17 06:33 [place] % (Auto) 9.9 % (0.0-7.3) H 08/08/17 06:33 Eos % (Auto) 1.5 % (0.0-4.3) 08/08/17 06:33 Baso % (Auto) 0.6 % (0.0-1.8) 08/08/17 06:33 Lymph # 1.1 K/mm3 (1.2-5.4) L 08/08/17 06:33 [place] # 1.5 K/mm3 (0.0-0.8) H 08/08/17 06:33 Eos # 0.2 K/mm3 (0.0-0.4) 08/08/17 06:33 Baso # 0.1 K/mm3 (0.0-0.1) 08/08/17 06:33 Add Manual Diff Complete 07/27/17 18:26 Total Counted 100 07/27/17 18:26 Seg Neutrophils % 80.4 % (40.0-70.0) H 08/08/17 06:33 Seg Neuts % (Manual) 57.0 % (40.0-70.0) 07/27/17 18:26 Band Neutrophils % 0 % 07/27/17 18:26 Lymphocytes % (Manual) 36.0 % (13.4-35.0) H 07/27/17 18:26 Reactive Lymphs % (Man) 0 % 07/27/17 18:26 Monocytes % (Manual) 7.0 % (0.0-7.3) 07/27/17 18:26 Eosinophils % (Manual) 0 % (0.0-4.3) 07/27/17 18:26 Basophils % (Manual) 0 % (0.0-1.8) 07/27/17 18:26 Metamyelocytes % 0 % 07/27/17 18:26 Myelocytes % 0 % 07/27/17 18:26 Promyelocytes % 0 % 07/27/17 18:26 Blast Cells % 0 % 07/27/17 18:26 Nucleated RBC % Not Reportable 07/27/17 18:26 Seg Neutrophils # 11.9 K/mm3 (1.8-7.7) H 08/08/17 06:33 Seg Neutrophils # Man 8.9 K/mm3 (1.8-7.7) H 07/27/17 18:26 Band Neutrophils # 0.0 K/mm3 07/27/17 18:26 Lymphocytes # (Manual) 5.6 K/mm3 (1.2-5.4) H 07/27/17 18:26 Abs React Lymphs (Man) 0.0 K/mm3 07/27/17 18:26 Monocytes # (Manual) 1.1 K/mm3 (0.0-0.8) H 07/27/17 18:26 Eosinophils # (Manual) 0.0 K/mm3 (0.0-0.4) 07/27/17 18:26 Basophils # (Manual) 0.0 K/mm3 (0.0-0.1) 07/27/17 18:26 Metamyelocytes # 0.0 K/mm3 07/27/17 18:26 Myelocytes # 0.0 K/mm3 07/27/17 18:26 Promyelocytes # 0.0 K/mm3 07/27/17 18:26 Blast Cells # 0.0 K/mm3 07/27/17 18:26 WBC Morphology Not Reportable 07/27/17 18:26 Hypersegmented Neuts Not Reportable 07/27/17 18:26 Hyposegmented Neuts Not Reportable 07/27/17 18:26 Hypogranular Neuts Not Reportable 07/27/17 18:26 Smudge Cells Not Reportable 07/27/17 18:26 Toxic Granulation Not Reportable 07/27/17 18:26 Toxic Vacuolation Not Reportable 07/27/17 18:26 Dohle Bodies Not Reportable 07/27/17 18:26 Pelger-Huet Anomaly Not Reportable 07/27/17 18:26 Zion Rods Not Reportable 07/27/17 18:26 Platelet Estimate Consistent w auto 07/27/17 18:26 Clumped Platelets Not Reportable 07/27/17 18:26 Plt Clumps, EDTA Not Reportable 07/27/17 18:26 Large Platelets Not Reportable 07/27/17 18:26 Giant Platelets Not Reportable 07/27/17 18:26 Platelet Satelliting Not Reportable 07/27/17 18:26 Plt Morphology Comment Not Reportable 07/27/17 18:26 RBC Morphology Not Reportable 07/27/17 18:26 Dimorphic RBCs Not Reportable 07/27/17 18:26 Polychromasia Not Reportable 07/27/17 18:26 Hypochromasia Not Reportable 07/27/17 18:26 Poikilocytosis Not Reportable 07/27/17 18:26 Anisocytosis Rare 07/27/17 18:26 Microcytosis Not Reportable 07/27/17 18:26 Macrocytosis Not Reportable 07/27/17 18:26 Spherocytes Not Reportable 07/27/17 18:26 Pappenheimer Bodies Not Reportable 07/27/17 18:26 Sickle Cells Not Reportable 07/27/17 18:26 Target Cells Not Reportable 07/27/17 18:26 Tear Drop Cells Not Reportable 07/27/17 18:26 Ovalocytes Not Reportable 07/27/17 18:26 Helmet Cells Not Reportable 07/27/17 18:26 Campbell-Jauca Bodies Not Reportable 07/27/17 18:26 Ballard Rings Not Reportable 07/27/17 18:26 Muir Cells Not Reportable 07/27/17 18:26 Bite Cells Not Reportable 07/27/17 18:26 Crenated Cell Not Reportable 07/27/17 18:26 Elliptocytes Not Reportable 07/27/17 18:26 Acanthocytes (Spur) Not Reportable 07/27/17 18:26 Rouleaux Not Reportable 07/27/17 18:26 Hemoglobin C Crystals Not Reportable 07/27/17 18:26 Schistocytes Not Reportable 07/27/17 18:26 Malaria parasites Not Reportable 07/27/17 18:26 Mina Bodies Not Reportable 07/27/17 18:26 Hem Pathologist Commnt No 07/27/17 18:26 PT 15.6 Sec. (12.2-14.9) H 07/27/17 18:26 INR 1.18 (0.87-1.13) H 07/27/17 18:26 APTT 38.5 Sec. (24.2-36.6) H 07/27/17 18:26 POC ABG pH 7.490 (7.35-7.45) H 08/04/17 10:58 POC ABG pCO2 39.0 (35-45) 08/04/17 10:58 POC ABG pO2 71 (80-105) L 08/04/17 10:58 POC ABG HCO3 29.7 08/04/17 10:58 POC ABG Total CO2 31 08/04/17 10:58 POC ABG O2 Sat 95 08/04/17 10:58 POC ABG Base Excess 6 08/04/17 10:58 FiO2 25 % 08/04/17 10:58 Sodium 141 mmol/L (137-145) 08/08/17 06:33 Potassium 3.8 mmol/L (3.6-5.0) 08/08/17 06:33 Chloride 101.6 mmol/L (98-107) 08/08/17 06:33 Carbon Dioxide 28 mmol/L (22-30) 08/08/17 06:33 Anion Gap 15 mmol/L 08/08/17 06:33 BUN 29 mg/dL (9-20) H 08/08/17 06:33 Creatinine 0.9 mg/dL (0.8-1.5) 08/08/17 06:33 Estimated GFR > 60 ml/min 08/08/17 06:33 BUN/Creatinine Ratio 32 % 08/08/17 06:33 Glucose 195 mg/dL (75-100) H 08/08/17 06:33 POC Glucose 188 (70-105) H 08/08/17 11:32 Lactic Acid 1.80 mmol/L (0.7-2.0) 08/03/17 03:29 Calcium 8.2 mg/dL (8.4-10.2) L 08/08/17 06:33 Phosphorus 1.90 mg/dL (2.5-4.5) L 08/05/17 07:34 Magnesium 2.10 mg/dL (1.7-2.3) 08/05/17 07:34 Total Creatine Kinase 434 units/L (55-170) H 07/28/17 05:44 CK-MB (CK-2) 10.8 ng/mL (0.0-4.0) H 07/28/17 05:44 CK-MB (CK-2) Rel Index 2.4 (0-4) 07/28/17 05:44 Troponin T 0.521 ng/mL (0.00-0.029) H* D 07/28/17 05:44 C-Reactive Protein 4.00 mg/dL (0.00-1.30) H 08/01/17 19:42 Serum Total Protein 4.9 g/dL (6.1-8.1) L 07/29/17 Unknown Albumin 2.9 g/dL (3.8-4.8) L 07/29/17 Unknown Kkkmj-6-Tvslhorzs 0.4 g/dL (0.2-0.3) H 07/29/17 Unknown Gytex-4-Alcifvwgq 0.6 g/dL (0.5-0.9) 07/29/17 Unknown Beta Globulins 0.2 g/dL (0.2-0.5) 07/29/17 Unknown Gamma Globulins 0.5 g/dL (0.8-1.7) L 07/29/17 Unknown Abnorm Protein Band 1 see below 07/29/17 Unknown PEP Interpretation see below H 07/29/17 Unknown Triglycerides 190 mg/dL (2-149) H 07/27/17 18:26 Cholesterol 93 mg/dL (50-199) 07/27/17 18:26 LDL Cholesterol Direct 34 mg/dL (50-130) L 07/27/17 18:26 HDL Cholesterol 21 mg/dL (40-59) L 07/27/17 18:26 Cholesterol/HDL Ratio 4.42 % 07/27/17 18:26 Urine Color Yellow (Yellow) 08/01/17 19:45 Urine Turbidity Clear (Clear) 08/01/17 19:45 Urine pH 6.0 (5.0-7.0) 08/01/17 19:45 Ur Specific [place] 1.018 (1.003-1.030) 08/01/17 19:45 Urine Protein 30 mg/dl mg/dL (Negative) 08/01/17 19:45 Urine Glucose (UA) 50 mg/dL (Negative) 08/01/17 19:45 Urine Ketones Neg mg/dL (Negative) 08/01/17 19:45 Urine Blood Mod (Negative) 08/01/17 19:45 Urine Nitrite Neg (Negative) 08/01/17 19:45 Ur Reducing Substances Not Reportable 07/27/17 22:46 Urine Bilirubin Neg (Negative) 08/01/17 19:45 Urine Ictotest Not Reportable 07/27/17 22:46 Urine Urobilinogen < 2.0 mg/dL (<2.0) 08/01/17 19:45 Ur Leukocyte Esterase Neg (Negative) 08/01/17 19:45 Urine WBC (Auto) 1.0 /HPF (0.0-6.0) 08/01/17 19:45 Urine RBC (Auto) 2.0 /HPF (0.0-6.0) 08/01/17 19:45 U Epithel Cells (Auto) < 1.0 /HPF (0-13.0) 08/01/17 19:45 Urine Bacteria (Auto) 1+ /HPF (Negative) 07/27/17 22:46 Amorphous Crystals Few 07/28/17 16:20 Urine Mucus Few /HPF 08/01/17 19:45 Urine Yeast (Budding) Few /HPF 07/28/17 16:20 Urine Eosinophils None seen (None Seen) 07/28/17 16:20 Urine Creatinine 58.4 mg/dL (0.1-20.0) H 07/28/17 16:20 Urine Sodium 94 mmol/L 07/28/17 16:20 Fraction Sodium Excret 2.6 07/28/17 16:20 Vancomycin Trough 7.1 ug/mL (5.0-20.0) 08/07/17 14:18 Urine Opiates Screen Presumptive negative 07/27/17 22:46 Urine Methadone Screen Presumptive negative 07/27/17 22:46 Ur Barbiturates Screen Presumptive negative 07/27/17 22:46 Ur Phencyclidine Scrn Presumptive negative 07/27/17 22:46 Ur Amphetamines Screen Presumptive negative 07/27/17 22:46 U Benzodiazepines Scrn Presumptive negative 07/27/17 22:46 Urine Cocaine Screen Presumptive negative 07/27/17 22:46 U Marijuana (THC) Screen Presumptive negative 07/27/17 22:46 Drugs of Abuse Note Disclamer 07/27/17 22:46 Proteinase 3 (PR3) Ab <1.0 AI (<1.0) 07/28/17 16:00 Myeloperoxidase Ab <1.0 AI (<1.0) 07/28/17 16:00 Double Strand DNA Ab <1 IU/mL (<=4) 07/28/17 16:00 Complement C3 67 mg/dL (90-180) L 07/28/17 16:00 Complement C4 14 mg/dL (16-47) L 07/28/17 16:00 Hepatitis A IgM Ab Non-reactive (NonReactive) 07/28/17 16:00 Hep Bs Antigen Non-reactive (Negative) 07/28/17 16:00 Hep B Core IgM Ab Non-reactive (NonReactive) 07/28/17 16:00 Hepatitis C Antibody Non-reactive (NonReactive) 07/28/17 16:00 Urine Legionella Ag Not detected (Not Detected) 08/01/17 19:45 Miscellaneous Test Flexitest 1 08/01/17 19:45 Blood Type A POSITIVE 07/27/17 18:24 Antibody Screen Negative 07/27/17 18:24
[2017-08-08] MEDS: NOVOLOG SUB-Q SCH ×2 (21:47)
[2017-08-08] MEDS: LOVENOX SUB-Q SCH (22:49)
[2017-08-08] MEDS: ATIVAN IV PRN (22:50)
[2017-08-09] MEDS: ZOSYN/NS 3.375GM/50ML 3.375 GM/50 ML BAG IV SCH (04:00)
[2017-08-09] MEDS ORDERED: ADRENALIN ONE (07:00)
--- NOTE | 2017-08-09 07:19 | Event Note ---
Date: 08/09/17 Gigi David called around 0700 Hospitalized Cross Cover Nurse reports suctioning patient (already intubated) and he went into asystole, chest compression were started and he was given Epi and pulse was restored. Afterward, Respiratory Therapist had difficult suctioning patient. They replaced the ETT and patient vitals are stabilizing. I have contacted Dr. Chow , attending, I asked the Nursing to call Dr. Anglin, [facility] and Dr. Ireland, Chemist Helper
[2017-08-09] MEDS: ATIVAN IV PRN (07:23)
[2017-08-09] MEDS ORDERED: ATIVAN IV PRN (07:33)
--- NOTE | 2017-08-09 07:50 | Progress Note ---
Subjective Date of service: 08/09/17 (Called to ICU at approximately 7:30 AM for intubation. Easy mask airway, SpO2=95%. 2 mg midazolam and 100 mg succinylcholine were administered IV. 7.5 ETT was placed atraumatically, using Mac 3 blade. CO2 confirmed via color detector.) Principal diagnosis: cardiac arrest at home. Intubated and unresponcsive Objective - Constitutional Vitals: Vital Signs - 12hr 08/08/17 08/08/17 08/08/17 20:00 21:00 22:00 Temperature Pulse Rate 57 L 57 L 57 L Pulse Rate [ 55 L Apical] Pulse Rate [ 58 L From Monitor] Pulse Rate [ 59 L Left Radial] Pulse Rate [ 57 L Right Radial] Respiratory 17 16 16 Rate Blood Pressure 146/81 153/84 159/81 O2 Sat by Pulse 91 93 92 Oximetry 08/08/17 08/08/17 08/08/17 22:48 23:01 23:44 Temperature Pulse Rate 61 60 55 L Pulse Rate [ Apical] Pulse Rate [ From Monitor] Pulse Rate [ Left Radial] Pulse Rate [ Right Radial] Respiratory 16 Rate Blood Pressure 159/81 165/79 165/79 O2 Sat by Pulse 96 98 Oximetry 08/09/17 08/09/17 08/09/17 00:00 01:00 02:00 Temperature 99.7 F H Pulse Rate 57 L 57 L 63 Pulse Rate [ Apical] Pulse Rate [ From Monitor] Pulse Rate [ Left Radial] Pulse Rate [ Right Radial] Respiratory 16 16 16 Rate Blood Pressure 141/75 145/78 130/74 O2 Sat by Pulse 95 94 94 Oximetry 08/09/17 08/09/17 03:19 04:25 Temperature 97.6 F Pulse Rate 52 L Pulse Rate [ Apical] Pulse Rate [ From Monitor] Pulse Rate [ Left Radial] Pulse Rate [ Right Radial] Respiratory Rate Blood Pressure 124/67 O2 Sat by Pulse 97 Oximetry - Labs CBC & Chem 7: 08/08/17 06:33 08/08/17 06:33 Labs: Abnormal lab results 08/08/17 08/08/17 08/09/17 Range/Units 11:32 17:58 00:16 POC Glucose 188 H 215 H 193 H (70-105) 08/09/17 Range/Units 05:07 POC Glucose 231 H (70-105)
--- NOTE | 2017-08-09 08:45 | XRay Report ---
AP CHEST: HISTORY: Endotracheal tube placement An endotracheal tube terminates 5 cm superior to the pérez. Mild cardiomegaly and previous CABG changes are noted. The left hemidiaphragm remains elevated with compressive atelectasis at the left lung base. Otherwise, the lungs are clear. The feeding tube terminates in the cardia of the stomach. IMPRESSION: Endotracheal tube as described. Otherwise, no change since 08/03/17.
[2017-08-09] MEDS ORDERED: QUELICIN IV ONE (09:03)
[2017-08-09] MEDS ORDERED: VERSED IV ONE (09:04)
[2017-08-09] MEDS: COREG PO SCH ×2 (09:19→21:03)
[2017-08-09] MEDS: CORDARONE PO SCH ×2 (09:19→21:02)
[2017-08-09] MEDS: BABY ASPIRIN FEEDTUBE SCH (09:19)
[2017-08-09] MEDS: ZESTRIL PO SCH (09:20)
[2017-08-09] MEDS: VANCOMYCIN/NS 1 GM/250 ML 1 GM/250 ML BAG IV SCH ×2 (09:49→21:02)
--- NOTE | 2017-08-09 10:01 | XRay Report ---
SUPINE KUB: History: Dobbhoff tube insertion. Findings: The distal tip of the Dobbhoff tube terminates in the cardia of the stomach beneath the left hemidiaphragm. The abdominal gas pattern is unremarkable. No masses or organomegaly is identified and there is no gross evidence of free air or fluid. No significant soft tissue calcifications are noted. IMPRESSION: Feeding tube as described.
--- NOTE | 2017-08-09 10:12 | Progress Note ---
Assessment and Plan Assessment: 1) S/P prolonged cardiac arrest with presumed sepsis with initial septic vs cardiogenic shock: still fever and leukocytosis better. Etiology ? pneumonia ? central fever 2) Presumed aspiration versus CAP pneumonia: -CT chest showed patchy airspace disease with left sided trace pleural effusion. 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 Plan: -stop zosyn - day 10 of 10 -stop vanco after today - day 7 - will need trach and peg placement per pulmonary Prognosis guarded Thank you Dr Blanchard for your consultation, will follow up with you. Kathie Magdaleno MD Infectious Diseases Specialist [facility] ([facility]) M [phone] O [phone] Subjective Date of service: 08/09/17 Principal diagnosis: cardiac arrest at home. Intubated and unresponcsive Interval history: Coded in asystole while suction this am. Remains on the vent intubated, fio2 100 % p5, no fever. Current Antimicrobials: Zosyn 07/31 vanco 08/04 Previous Antimicrobials: Vancomycin 07/31-08/02 Microbiology: Blood cultures: 07/27 ngtd Respiratory cultures: 07/27 normal resp niko 08/01 +MRSA Urine cultures: 07/28 neg Influenza: neg Objective - Exam Narrative Exam: General appearance: sedated on the vent Eyes: anicteric sclerae, moist conjunctivae; no lid-lag; PERRLA HENT: Atraumatic; oropharynx +ETT + NGT Neck: Trachea midline; supple, no thyromegaly or lymphadenopathy Lungs: marcin rhonchi CV: RRR Abdomen: Soft, non-tender Extremities: No peripheral edema or extremity lymphadenopathy Skin: Normal temperature, turgor and texture; no rash, ulcers or subcutaneous nodules Psych: sedated Neuro: sedated Lines: femoral line - Constitutional Vitals: Vital Signs Temp Pulse Resp BP Pulse Ox 98.5 F 64 16 110/67 97 08/09/17 08:39 08/09/17 09:20 08/09/17 02:00 08/09/17 09:20 08/09/17 04:25 Temperature -Last 24 Hours Temperature 98.5 F Temperature 97.6 F Temperature 99.7 F Temperature 99.4 F Temperature 99.0 F Temperature 98.9 F - Labs CBC & Chem 7: 08/08/17 06:33 08/08/17 06:33 Labs: Abnormal lab results 08/08/17 08/08/17 08/09/17 Range/Units 11:32 17:58 00:16 POC Glucose 188 H 215 H 193 H (70-105) 08/09/17 Range/Units 05:07 POC Glucose 231 H (70-105)
--- NOTE | 2017-08-09 10:27 | Progress Note ---
Assessment and Plan 71 y/o male with out of hospital cardiac arrest (Vfib/Vtach), with acute renal failure, and metabolic acidosis and now anoxic encephalopathy, not on sedation. 1. Will investigate tube obstruction. Given clear CXR, no indication for bronchoscopy at this time. Discussed with family. Explained to them that blood in ET tube is likely from trauma, rather during repeat intubation or from attempts at suctioning with malfunctioned Tube 2. patient will need trach and peg placement. at bedside and in agreement with this. Will consult surgery [facility] for procedures 3. Hematuria is new, unsure of the cause presently. Will seen U/A and culture as well as cytology. 4. LTACH will likely be the next step. Will follow up with neurology for any further recommendations. CCT 31 minutes. Subjective Date of service: 08/09/17 Principal diagnosis: cardiac arrest at home. Intubated and unresponcsive Interval history: patient had cardiac arrest this am secondary to airway obstruction. Thought secondary to endotracheal tube malfunction. Patient extubated and then re- intubated by anesthesia. Was unresponsive prior to this episode and remains unresponsive now. He was given Versed and Succ by anesthesia this am. Family at bedside. Questions about blood in endotracheal tube and blood in urine. No labs presently. CXR reviewed and clear. Objective Vital Signs - 12hr 08/08/17 08/08/17 08/08/17 22:48 23:01 23:44 Temperature Pulse Rate 61 60 55 L Respiratory 16 Rate Blood Pressure 159/81 165/79 165/79 O2 Sat by Pulse 96 98 Oximetry 08/09/17 08/09/17 08/09/17 00:00 01:00 02:00 Temperature 99.7 F H Pulse Rate 57 L 57 L 63 Respiratory 16 16 16 Rate Blood Pressure 141/75 145/78 130/74 O2 Sat by Pulse 95 94 94 Oximetry 08/09/17 08/09/17 08/09/17 03:19 04:25 08:00 Temperature 97.6 F Pulse Rate 52 L 66 Respiratory Rate Blood Pressure 124/67 106/65 O2 Sat by Pulse 97 Oximetry 08/09/17 08/09/17 08/09/17 08:39 09:19 09:20 Temperature 98.5 F Pulse Rate 64 64 Respiratory Rate Blood Pressure 110/67 110/67 O2 Sat by Pulse Oximetry Constitutional: comatose (eyes open only when stimulated, not following commands , flaccid extremities), other (full vent support currently) Eyes: non-icteric ENT: oropharynx moist Neck: supple, no JVD Effort: normal Ascultation: Bilateral: clear, diminished breath sounds Percussion: Bilateral: not dull Cardiovascular: regular rate and rhythm Gastrointestinal: normoactive bowel sounds, soft, non-tender, non-distended Integumentary: normal Extremities: no cyanosis, no edema, pink and warm Neurologic: other (see above) Psychiatric: other (unable to assess) CBC and BMP: 08/08/17 06:33 08/08/17 06:33 ABG, PT/INR, D-dimer: ABG POC ABG pH 7.490 (7.35-7.45) H 08/04/17 10:58 POC ABG pCO2 39.0 (35-45) 08/04/17 10:58 POC ABG pO2 71 (80-105) L 08/04/17 10:58 POC ABG HCO3 29.7 08/04/17 10:58 POC ABG Total CO2 31 08/04/17 10:58 POC ABG O2 Sat 95 08/04/17 10:58 PT/INR, D-dimer PT 15.6 Sec. (12.2-14.9) H 07/27/17 18:26 INR 1.18 (0.87-1.13) H 07/27/17 18:26 Abnormal lab findings: Abnormal Labs 07/27/17 07/27/17 07/27/17 18:26 18:26 18:26 WBC 15.6 H RBC Hgb Hct MCH MCHC Plt Count 115 L Lymph % (Auto) Owen % (Auto) Lymph # Owen # Seg Neutrophils % Lymphocytes % (Manual) 36.0 H Seg Neutrophils # Seg Neutrophils # Man 8.9 H Lymphocytes # (Manual) 5.6 H Monocytes # (Manual) 1.1 H PT 15.6 H INR 1.18 H APTT 38.5 H POC ABG pH POC ABG pCO2 POC ABG pO2 Sodium Potassium Chloride Carbon Dioxide 21 L BUN Creatinine Glucose 252 H POC Glucose Lactic Acid Calcium 7.7 L Phosphorus Total Creatine Kinase CK-MB (CK-2) CK-MB (CK-2) Rel Index Troponin T 0.090 H C-Reactive Protein Serum Total Protein Albumin Uybnq-8-Nefnwdcfa Gamma Globulins PEP Interpretation Triglycerides 190 H LDL Cholesterol Direct 34 L HDL Cholesterol 21 L Urine WBC (Auto) Urine Creatinine Complement C3 Complement C4 07/27/17 07/27/17 07/27/17 19:02 19:25 21:43 WBC RBC Hgb Hct MCH MCHC Plt Count Lymph % (Auto) Owen % (Auto) Lymph # Owen # Seg Neutrophils % Lymphocytes % (Manual) Seg Neutrophils # Seg Neutrophils # Man Lymphocytes # (Manual) Monocytes # (Manual) PT INR APTT POC ABG pH 7.155 L POC ABG pCO2 47.7 H POC ABG pO2 229 H Sodium Potassium Chloride Carbon Dioxide BUN Creatinine Glucose POC Glucose Lactic Acid 6.00 H* Calcium Phosphorus Total Creatine Kinase CK-MB (CK-2) 4.8 H CK-MB (CK-2) Rel Index Troponin T 0.149 H* D C-Reactive Protein Serum Total Protein Albumin Noodn-0-Rgiojwtoe Gamma Globulins PEP Interpretation Triglycerides LDL Cholesterol Direct HDL Cholesterol Urine WBC (Auto) Urine Creatinine Complement C3 Complement C4 07/27/17 07/27/17 07/28/17 22:47 22:47 01:47 WBC RBC Hgb Hct MCH MCHC Plt Count Lymph % (Auto) Owen % (Auto) Lymph # Owen # Seg Neutrophils % Lymphocytes % (Manual) Seg Neutrophils # Seg Neutrophils # Man Lymphocytes # (Manual) Monocytes # (Manual) PT INR APTT POC ABG pH POC ABG pCO2 POC ABG pO2 Sodium Potassium Chloride Carbon Dioxide BUN Creatinine Glucose POC Glucose 199 H Lactic Acid 2.40 H* Calcium Phosphorus Total Creatine Kinase 222 H CK-MB (CK-2) 9.4 H CK-MB (CK-2) Rel Index 4.2 H Troponin T 0.852 H* D C-Reactive Protein Serum Total Protein Albumin Hwbud-0-Hmlluoxqu Gamma Globulins PEP Interpretation Triglycerides LDL Cholesterol Direct HDL Cholesterol Urine WBC (Auto) Urine Creatinine Complement C3 Complement C4 07/28/17 07/28/17 07/28/17 05:29 05:44 05:44 WBC RBC Hgb Hct MCH MCHC Plt Count Lymph % (Auto) Owen % (Auto) Lymph # Owen # Seg Neutrophils % Lymphocytes % (Manual) Seg Neutrophils # Seg Neutrophils # Man Lymphocytes # (Manual) Monocytes # (Manual) PT INR APTT POC ABG pH 7.268 L POC ABG pCO2 34.8 L POC ABG pO2 Sodium 146 H Potassium 5.1 H D Chloride 113.3 H Carbon Dioxide 18 L BUN 29 H Creatinine 2.0 H D Glucose 194 H POC Glucose Lactic Acid 2.10 H* Calcium 6.8 L Phosphorus Total Creatine Kinase CK-MB (CK-2) CK-MB (CK-2) Rel Index Troponin T C-Reactive Protein Serum Total Protein Albumin Cbeij-6-Hvxdllawi Gamma Globulins PEP Interpretation Triglycerides LDL Cholesterol Direct HDL Cholesterol Urine WBC (Auto) Urine Creatinine Complement C3 Complement C4 07/28/17 07/28/17 07/28/17 05:44 06:30 16:00 WBC 16.9 H RBC Hgb Hct MCH MCHC 31 L Plt Count Lymph % (Auto) 8.4 L Owen % (Auto) 7.5 H Lymph # Owen # 1.3 H Seg Neutrophils % 84.1 H Lymphocytes % (Manual) Seg Neutrophils # 14.2 H Seg Neutrophils # Man Lymphocytes # (Manual) Monocytes # (Manual) PT INR APTT POC ABG pH POC ABG pCO2 POC ABG pO2 Sodium 146 H Potassium Chloride Carbon Dioxide BUN Creatinine 2.4 H Glucose POC Glucose Lactic Acid Calcium Phosphorus Total Creatine Kinase 434 H CK-MB (CK-2) 10.8 H CK-MB (CK-2) Rel Index Troponin T 0.521 H* D C-Reactive Protein Serum Total Protein Albumin Fjjmw-2-Vjbcmptca Gamma Globulins PEP Interpretation Triglycerides LDL Cholesterol Direct HDL Cholesterol Urine WBC (Auto) Urine Creatinine Complement C3 Complement C4 07/28/17 07/28/17 07/28/17 16:00 16:00 16:20 WBC RBC Hgb Hct MCH MCHC Plt Count Lymph % (Auto) Owen % (Auto) Lymph # Owen # Seg Neutrophils % Lymphocytes % (Manual) Seg Neutrophils # Seg Neutrophils # Man Lymphocytes # (Manual) Monocytes # (Manual) PT INR APTT POC ABG pH POC ABG pCO2 POC ABG pO2 Sodium Potassium Chloride Carbon Dioxide BUN Creatinine Glucose POC Glucose Lactic Acid Calcium Phosphorus Total Creatine Kinase CK-MB (CK-2) CK-MB (CK-2) Rel Index Troponin T C-Reactive Protein Serum Total Protein Albumin Tcgdz-3-Qhnnaiika Gamma Globulins PEP Interpretation Triglycerides LDL Cholesterol Direct HDL Cholesterol Urine WBC (Auto) 12.0 H Urine Creatinine Complement C3 67 L Complement C4 14 L 07/28/17 07/29/17 07/29/17 16:20 04:02 05:00 WBC RBC Hgb Hct MCH MCHC Plt Count Lymph % (Auto) Owen % (Auto) Lymph # Owen # Seg Neutrophils % Lymphocytes % (Manual) Seg Neutrophils # Seg Neutrophils # Man Lymphocytes # (Manual) Monocytes # (Manual) PT INR APTT POC ABG pH 7.304 L POC ABG pCO2 31.6 L POC ABG pO2 Sodium Potassium Chloride 111.7 H Carbon Dioxide 18 L BUN 37 H Creatinine 2.1 H Glucose 213 H POC Glucose Lactic Acid Calcium 6.9 L Phosphorus Total Creatine Kinase CK-MB (CK-2) CK-MB (CK-2) Rel Index Troponin T C-Reactive Protein Serum Total Protein Albumin Ornil-5-Phpxjfcvc Gamma Globulins PEP Interpretation Triglycerides LDL Cholesterol Direct HDL Cholesterol Urine WBC (Auto) Urine Creatinine 58.4 H Complement C3 Complement C4 07/29/17 07/29/17 07/30/17 Unknown Unknown 04:07 WBC 14.4 H RBC Hgb Hct MCH MCHC Plt Count 125 L Lymph % (Auto) Owen % (Auto) Lymph # Owen # Seg Neutrophils % Lymphocytes % (Manual) Seg Neutrophils # Seg Neutrophils # Man Lymphocytes # (Manual) Monocytes # (Manual) PT INR APTT POC ABG pH 7.319 L POC ABG pCO2 27.8 L POC ABG pO2 121 H Sodium Potassium Chloride Carbon Dioxide BUN Creatinine Glucose POC Glucose Lactic Acid Calcium Phosphorus Total Creatine Kinase CK-MB (CK-2) CK-MB (CK-2) Rel Index Troponin T C-Reactive Protein Serum Total Protein 4.9 L Albumin 2.9 L Ifnqr-5-Ikhmbyzkn 0.4 H Gamma Globulins 0.5 L PEP Interpretation see below H Triglycerides LDL Cholesterol Direct HDL Cholesterol Urine WBC (Auto) Urine Creatinine Complement C3 Complement C4 07/30/17 07/30/17 07/30/17 12:43 17:22 23:27 WBC RBC Hgb Hct MCH MCHC Plt Count Lymph % (Auto) Owen % (Auto) Lymph # Owen # Seg Neutrophils % Lymphocytes % (Manual) Seg Neutrophils # Seg Neutrophils # Man Lymphocytes # (Manual) Monocytes # (Manual) PT INR APTT POC ABG pH POC ABG pCO2 POC ABG pO2 Sodium Potassium Chloride Carbon Dioxide BUN Creatinine Glucose POC Glucose 134 H 117 H 173 H Lactic Acid Calcium Phosphorus Total Creatine Kinase CK-MB (CK-2) CK-MB (CK-2) Rel Index Troponin T C-Reactive Protein Serum Total Protein Albumin Mgshy-2-Lojrmavuu Gamma Globulins PEP Interpretation Triglycerides LDL Cholesterol Direct HDL Cholesterol Urine WBC (Auto) Urine Creatinine Complement C3 Complement C4 07/30/17 07/30/17 07/31/17 Unknown Unknown 04:13 WBC 15.6 H RBC Hgb Hct MCH MCHC Plt Count 117 L Lymph % (Auto) Owen % (Auto) Lymph # Owen # Seg Neutrophils % Lymphocytes % (Manual) Seg Neutrophils # Seg Neutrophils # Man Lymphocytes # (Manual) Monocytes # (Manual) PT INR APTT POC ABG pH POC ABG pCO2 26.8 L POC ABG pO2 74 L Sodium 146 H Potassium Chloride 113.8 H Carbon Dioxide 18 L BUN 36 H Creatinine 1.8 H Glucose 177 H POC Glucose Lactic Acid Calcium 6.9 L Phosphorus Total Creatine Kinase CK-MB (CK-2) CK-MB (CK-2) Rel Index Troponin T C-Reactive Protein Serum Total Protein Albumin Teoav-7-Tpiaqzyqx Gamma Globulins PEP Interpretation Triglycerides LDL Cholesterol Direct HDL Cholesterol Urine WBC (Auto) Urine Creatinine Complement C3 Complement C4 07/31/17 07/31/17 07/31/17 05:00 05:00 05:01 WBC 18.5 H RBC Hgb Hct MCH MCHC Plt Count 135 L Lymph % (Auto) Owen % (Auto) Lymph # Owen # Seg Neutrophils % Lymphocytes % (Manual) Seg Neutrophils # Seg Neutrophils # Man Lymphocytes # (Manual) Monocytes # (Manual) PT INR APTT POC ABG pH POC ABG pCO2 POC ABG pO2 Sodium 148 H Potassium Chloride 112.8 H Carbon Dioxide 20 L BUN 33 H Creatinine 1.6 H Glucose 188 H POC Glucose 219 H Lactic Acid Calcium 7.1 L Phosphorus Total Creatine Kinase CK-MB (CK-2) CK-MB (CK-2) Rel Index Troponin T C-Reactive Protein Serum Total Protein Albumin Sjyag-2-Vedpejtua Gamma Globulins PEP Interpretation Triglycerides LDL Cholesterol Direct HDL Cholesterol Urine WBC (Auto) Urine Creatinine Complement C3 Complement C4 07/31/17 07/31/17 08/01/17 14:36 17:57 00:02 WBC RBC Hgb Hct MCH MCHC Plt Count Lymph % (Auto) Owen % (Auto) Lymph # Owen # Seg Neutrophils % Lymphocytes % (Manual) Seg Neutrophils # Seg Neutrophils # Man Lymphocytes # (Manual) Monocytes # (Manual) PT INR APTT POC ABG pH POC ABG pCO2 POC ABG pO2 Sodium Potassium Chloride Carbon Dioxide BUN Creatinine Glucose POC Glucose 199 H 216 H 131 H Lactic Acid Calcium Phosphorus Total Creatine Kinase CK-MB (CK-2) CK-MB (CK-2) Rel Index Troponin T C-Reactive Protein Serum Total Protein Albumin Wrgbb-2-Mkulscpzg Gamma Globulins PEP Interpretation Triglycerides LDL Cholesterol Direct HDL Cholesterol Urine WBC (Auto) Urine Creatinine Complement C3 Complement C4 08/01/17 08/01/17 08/01/17 03:22 04:10 04:10 WBC 19.3 H RBC Hgb Hct MCH MCHC Plt Count 129 L Lymph % (Auto) Owen % (Auto) Lymph # Owen # Seg Neutrophils % Lymphocytes % (Manual) Seg Neutrophils # Seg Neutrophils # Man Lymphocytes # (Manual) Monocytes # (Manual) PT INR APTT POC ABG pH 7.481 H POC ABG pCO2 29.6 L POC ABG pO2 65 L Sodium 148 H Potassium Chloride 113.2 H Carbon Dioxide 21 L BUN 29 H Creatinine Glucose 173 H POC Glucose Lactic Acid Calcium 7.3 L Phosphorus Total Creatine Kinase CK-MB (CK-2) CK-MB (CK-2) Rel Index Troponin T C-Reactive Protein Serum Total Protein Albumin Opdkf-4-Rtjyjwrqi Gamma Globulins PEP Interpretation Triglycerides LDL Cholesterol Direct HDL Cholesterol Urine WBC (Auto) Urine Creatinine Complement C3 Complement C4 08/01/17 08/01/17 08/01/17 05:18 11:55 18:13 WBC RBC Hgb Hct MCH MCHC Plt Count Lymph % (Auto) Owen % (Auto) Lymph # Owen # Seg Neutrophils % Lymphocytes % (Manual) Seg Neutrophils # Seg Neutrophils # Man Lymphocytes # (Manual) Monocytes # (Manual) PT INR APTT POC ABG pH POC ABG pCO2 POC ABG pO2 Sodium Potassium Chloride Carbon Dioxide BUN Creatinine Glucose POC Glucose 179 H 174 H 189 H Lactic Acid Calcium Phosphorus Total Creatine Kinase CK-MB (CK-2) CK-MB (CK-2) Rel Index Troponin T C-Reactive Protein Serum Total Protein Albumin Tulcf-3-Fkhitilhu Gamma Globulins PEP Interpretation Triglycerides LDL Cholesterol Direct HDL Cholesterol Urine WBC (Auto) Urine Creatinine Complement C3 Complement C4 08/01/17 08/01/17 08/02/17 19:42 22:01 00:01 WBC RBC Hgb Hct MCH MCHC Plt Count Lymph % (Auto) Owen % (Auto) Lymph # Owen # Seg Neutrophils % Lymphocytes % (Manual) Seg Neutrophils # Seg Neutrophils # Man Lymphocytes # (Manual) Monocytes # (Manual) PT INR APTT POC ABG pH POC ABG pCO2 POC ABG pO2 Sodium Potassium Chloride Carbon Dioxide BUN Creatinine Glucose POC Glucose 165 H 129 H Lactic Acid Calcium Phosphorus Total Creatine Kinase CK-MB (CK-2) CK-MB (CK-2) Rel Index Troponin T C-Reactive Protein 4.00 H Serum Total Protein Albumin Dcexq-9-Byvczbldr Gamma Globulins PEP Interpretation Triglycerides LDL Cholesterol Direct HDL Cholesterol Urine WBC (Auto) Urine Creatinine Complement C3 Complement C4 08/02/17 08/02/17 08/02/17 03:40 04:10 06:00 WBC RBC Hgb Hct MCH MCHC Plt Count Lymph % (Auto) Owen % (Auto) Lymph # Owen # Seg Neutrophils % Lymphocytes % (Manual) Seg Neutrophils # Seg Neutrophils # Man Lymphocytes # (Manual) Monocytes # (Manual) PT INR APTT POC ABG pH 7.474 H POC ABG pCO2 33.8 L POC ABG pO2 73 L Sodium 148 H Potassium Chloride 109.3 H Carbon Dioxide BUN 31 H Creatinine Glucose 168 H POC Glucose 172 H Lactic Acid Calcium 6.8 L Phosphorus Total Creatine Kinase CK-MB (CK-2) CK-MB (CK-2) Rel Index Troponin T C-Reactive Protein Serum Total Protein Albumin Qvqrx-2-Btxwowqis Gamma Globulins PEP Interpretation Triglycerides LDL Cholesterol Direct HDL Cholesterol Urine WBC (Auto) Urine Creatinine Complement C3 Complement C4 08/02/17 08/02/17 08/02/17 07:09 11:25 17:46 WBC 20.1 H RBC Hgb 11.7 L Hct MCH MCHC Plt Count 127 L Lymph % (Auto) Owen % (Auto) Lymph # Owen # Seg Neutrophils % Lymphocytes % (Manual) Seg Neutrophils # Seg Neutrophils # Man Lymphocytes # (Manual) Monocytes # (Manual) PT INR APTT POC ABG pH POC ABG pCO2 POC ABG pO2 Sodium Potassium Chloride Carbon Dioxide BUN Creatinine Glucose POC Glucose 159 H 171 H Lactic Acid Calcium Phosphorus Total Creatine Kinase CK-MB (CK-2) CK-MB (CK-2) Rel Index Troponin T C-Reactive Protein Serum Total Protein Albumin Hvcxv-2-Zrrtoszms Gamma Globulins PEP Interpretation Triglycerides LDL Cholesterol Direct HDL Cholesterol Urine WBC (Auto) Urine Creatinine Complement C3 Complement C4 08/02/17 08/03/17 08/03/17 22:30 00:05 03:29 WBC RBC Hgb Hct MCH MCHC Plt Count Lymph % (Auto) Owen % (Auto) Lymph # Owen # Seg Neutrophils % Lymphocytes % (Manual) Seg Neutrophils # Seg Neutrophils # Man Lymphocytes # (Manual) Monocytes # (Manual) PT INR APTT POC ABG pH POC ABG pCO2 POC ABG pO2 Sodium 148 H Potassium Chloride 109.1 H Carbon Dioxide BUN 32 H Creatinine Glucose 179 H POC Glucose 179 H 199 H Lactic Acid Calcium 6.9 L Phosphorus Total Creatine Kinase CK-MB (CK-2) CK-MB (CK-2) Rel Index Troponin T C-Reactive Protein Serum Total Protein Albumin Aopui-4-Ayaidsbtj Gamma Globulins PEP Interpretation Triglycerides LDL Cholesterol Direct HDL Cholesterol Urine WBC (Auto) Urine Creatinine Complement C3 Complement C4 08/03/17 08/03/17 08/03/17 03:29 05:40 06:01 WBC 19.9 H RBC Hgb Hct MCH MCHC Plt Count 130 L Lymph % (Auto) 7.0 L Owen % (Auto) 11.1 H Lymph # Owen # 2.2 H Seg Neutrophils % 81.4 H Lymphocytes % (Manual) Seg Neutrophils # 16.2 H Seg Neutrophils # Man Lymphocytes # (Manual) Monocytes # (Manual) PT INR APTT POC ABG pH 7.468 H POC ABG pCO2 POC ABG pO2 70 L Sodium Potassium Chloride Carbon Dioxide BUN Creatinine Glucose POC Glucose 179 H Lactic Acid Calcium Phosphorus Total Creatine Kinase CK-MB (CK-2) CK-MB (CK-2) Rel Index Troponin T C-Reactive Protein Serum Total Protein Albumin Brzjv-5-Rswfpiits Gamma Globulins PEP Interpretation Triglycerides LDL Cholesterol Direct HDL Cholesterol Urine WBC (Auto) Urine Creatinine Complement C3 Complement C4 08/03/17 08/03/17 08/04/17 11:43 17:34 00:02 WBC RBC Hgb Hct MCH MCHC Plt Count Lymph % (Auto) Owen % (Auto) Lymph # Owen # Seg Neutrophils % Lymphocytes % (Manual) Seg Neutrophils # Seg Neutrophils # Man Lymphocytes # (Manual) Monocytes # (Manual) PT INR APTT POC ABG pH POC ABG pCO2 POC ABG pO2 Sodium Potassium Chloride Carbon Dioxide BUN Creatinine Glucose POC Glucose 166 H 193 H 191 H Lactic Acid Calcium Phosphorus Total Creatine Kinase CK-MB (CK-2) CK-MB (CK-2) Rel Index Troponin T C-Reactive Protein Serum Total Protein Albumin Nwqiz-2-Ylcyupbxp Gamma Globulins PEP Interpretation Triglycerides LDL Cholesterol Direct HDL Cholesterol Urine WBC (Auto) Urine Creatinine Complement C3 Complement C4 08/04/17 08/04/17 08/04/17 05:18 05:44 05:44 WBC 16.8 H RBC Hgb 11.7 L Hct MCH 27 L MCHC Plt Count Lymph % (Auto) 5.0 L Owen % (Auto) 9.5 H Lymph # 0.8 L Owen # 1.6 H Seg Neutrophils % 84.7 H Lymphocytes % (Manual) Seg Neutrophils # 14.2 H Seg Neutrophils # Man Lymphocytes # (Manual) Monocytes # (Manual) PT INR APTT POC ABG pH POC ABG pCO2 POC ABG pO2 Sodium 148 H Potassium Chloride 108.1 H Carbon Dioxide BUN 31 H Creatinine Glucose 181 H POC Glucose 173 H Lactic Acid Calcium 7.6 L Phosphorus Total Creatine Kinase CK-MB (CK-2) CK-MB (CK-2) Rel Index Troponin T C-Reactive Protein Serum Total Protein Albumin Odbbd-0-Sdbflscbb Gamma Globulins PEP Interpretation Triglycerides LDL Cholesterol Direct HDL Cholesterol Urine WBC (Auto) Urine Creatinine Complement C3 Complement C4 08/04/17 08/04/17 08/04/17 10:58 12:34 17:35 WBC RBC Hgb Hct MCH MCHC Plt Count Lymph % (Auto) Owen % (Auto) Lymph # Owen # Seg Neutrophils % Lymphocytes % (Manual) Seg Neutrophils # Seg Neutrophils # Man Lymphocytes # (Manual) Monocytes # (Manual) PT INR APTT POC ABG pH 7.490 H POC ABG pCO2 POC ABG pO2 71 L Sodium Potassium Chloride Carbon Dioxide BUN Creatinine Glucose POC Glucose 191 H 188 H Lactic Acid Calcium Phosphorus Total Creatine Kinase CK-MB (CK-2) CK-MB (CK-2) Rel Index Troponin T C-Reactive Protein Serum Total Protein Albumin Rbicd-9-Hzbpwrjzh Gamma Globulins PEP Interpretation Triglycerides LDL Cholesterol Direct HDL Cholesterol Urine WBC (Auto) Urine Creatinine Complement C3 Complement C4 08/05/17 08/05/17 08/05/17 00:00 05:32 07:34 WBC 14.4 H RBC Hgb 10.6 L Hct 32.3 L MCH MCHC Plt Count Lymph % (Auto) 6.7 L Owen % (Auto) 8.6 H Lymph # 1.0 L Owen # 1.2 H Seg Neutrophils % 81.8 H Lymphocytes % (Manual) Seg Neutrophils # 11.8 H Seg Neutrophils # Man Lymphocytes # (Manual) Monocytes # (Manual) PT INR APTT POC ABG pH POC ABG pCO2 POC ABG pO2 Sodium Potassium Chloride Carbon Dioxide BUN Creatinine Glucose POC Glucose 216 H 240 H Lactic Acid Calcium Phosphorus Total Creatine Kinase CK-MB (CK-2) CK-MB (CK-2) Rel Index Troponin T C-Reactive Protein Serum Total Protein Albumin Ebtkt-3-Sgquqkrpe Gamma Globulins PEP Interpretation Triglycerides LDL Cholesterol Direct HDL Cholesterol Urine WBC (Auto) Urine Creatinine Complement C3 Complement C4 08/05/17 08/05/17 08/05/17 07:34 12:36 17:51 WBC RBC Hgb Hct MCH MCHC Plt Count Lymph % (Auto) Owen % (Auto) Lymph # Owen # Seg Neutrophils % Lymphocytes % (Manual) Seg Neutrophils # Seg Neutrophils # Man Lymphocytes # (Manual) Monocytes # (Manual) PT INR APTT POC ABG pH POC ABG pCO2 POC ABG pO2 Sodium 148 H Potassium Chloride 107.7 H Carbon Dioxide BUN 32 H Creatinine Glucose 241 H POC Glucose 206 H 190 H Lactic Acid Calcium 7.6 L Phosphorus 1.90 L Total Creatine Kinase CK-MB (CK-2) CK-MB (CK-2) Rel Index Troponin T C-Reactive Protein Serum Total Protein Albumin Agunx-5-Chizoebde Gamma Globulins PEP Interpretation Triglycerides LDL Cholesterol Direct HDL Cholesterol Urine WBC (Auto) Urine Creatinine Complement C3 Complement C4 08/05/17 08/06/17 08/06/17 22:11 00:35 04:34 WBC 16.2 H RBC Hgb 11.6 L Hct MCH MCHC Plt Count Lymph % (Auto) 5.8 L Owen % (Auto) 9.3 H Lymph # 0.9 L Owen # 1.5 H Seg Neutrophils % 83.5 H Lymphocytes % (Manual) Seg Neutrophils # 13.5 H Seg Neutrophils # Man Lymphocytes # (Manual) Monocytes # (Manual) PT INR APTT POC ABG pH POC ABG pCO2 POC ABG pO2 Sodium Potassium Chloride Carbon Dioxide BUN Creatinine Glucose POC Glucose 169 H 191 H Lactic Acid Calcium Phosphorus Total Creatine Kinase CK-MB (CK-2) CK-MB (CK-2) Rel Index Troponin T C-Reactive Protein Serum Total Protein Albumin Slkrd-4-Kffcbbzgh Gamma Globulins PEP Interpretation Triglycerides LDL Cholesterol Direct HDL Cholesterol Urine WBC (Auto) Urine Creatinine Complement C3 Complement C4 08/06/17 08/06/1708/06/17 04:34 05:44 11:45 WBC RBC Hgb Hct MCH MCHC Plt Count Lymph % (Auto) Owen % (Auto) Lymph # Owen # Seg Neutrophils % Lymphocytes % (Manual) Seg Neutrophils # Seg Neutrophils # Man Lymphocytes # (Manual) Monocytes # (Manual) PT INR APTT POC ABG pH POC ABG pCO2 POC ABG pO2 Sodium Potassium Chloride Carbon Dioxide BUN 30 H Creatinine Glucose 241 H POC Glucose 223 H 239 H Lactic Acid Calcium 8.0 L Phosphorus Total Creatine Kinase CK-MB (CK-2) CK-MB (CK-2) Rel Index Troponin T C-Reactive Protein Serum Total Protein Albumin Zjvev-5-Pmwcxivhv Gamma Globulins PEP Interpretation Triglycerides LDL Cholesterol Direct HDL Cholesterol Urine WBC (Auto) Urine Creatinine Complement C3 Complement C4 08/06/17 08/06/17 08/07/17 17:55 23:43 05:24 WBC 13.5 H RBC 3.58 L Hgb 10.4 L Hct 31.4 L MCH MCHC Plt Count Lymph % (Auto) 5.8 L Owen % (Auto) 8.7 H Lymph # 0.8 L Owen # 1.2 H Seg Neutrophils % 83.2 H Lymphocytes % (Manual) Seg Neutrophils # 11.2 H Seg Neutrophils # Man Lymphocytes # (Manual) Monocytes # (Manual) PT INR APTT POC ABG pH POC ABG pCO2 POC ABG pO2 Sodium Potassium Chloride Carbon Dioxide BUN Creatinine Glucose POC Glucose 227 H 243 H Lactic Acid Calcium Phosphorus Total Creatine Kinase CK-MB (CK-2) CK-MB (CK-2) Rel Index Troponin T C-Reactive Protein Serum Total Protein Albumin Mifxh-5-Rvqtubjof Gamma Globulins PEP Interpretation Triglycerides LDL Cholesterol Direct HDL Cholesterol Urine WBC (Auto) Urine Creatinine Complement C3 Complement C4 08/07/17 08/07/17 08/07/17 05:24 05:38 18:16 WBC RBC Hgb Hct MCH MCHC Plt Count Lymph % (Auto) Owen % (Auto) Lymph # Owen # Seg Neutrophils % Lymphocytes % (Manual) Seg Neutrophils # Seg Neutrophils # Man Lymphocytes # (Manual) Monocytes # (Manual) PT INR APTT POC ABG pH POC ABG pCO2 POC ABG pO2 Sodium Potassium Chloride Carbon Dioxide BUN 28 H Creatinine Glucose 184 H POC Glucose 192 H 189 H Lactic Acid Calcium 7.8 L Phosphorus Total Creatine Kinase CK-MB (CK-2) CK-MB (CK-2) Rel Index Troponin T C-Reactive Protein Serum Total Protein Albumin Sxwbv-6-Knqfzqgvc Gamma Globulins PEP Interpretation Triglycerides LDL Cholesterol Direct HDL Cholesterol Urine WBC (Auto) Urine Creatinine Complement C3 Complement C4 08/08/17 08/08/17 08/08/17 00:03 06:23 06:33 WBC 14.8 H RBC Hgb 11.0 L Hct 33.7 L MCH MCHC Plt Count Lymph % (Auto) 7.6 L Owen % (Auto) 9.9 H Lymph # 1.1 L Owen # 1.5 H Seg Neutrophils % 80.4 H Lymphocytes % (Manual) Seg Neutrophils # 11.9 H Seg Neutrophils # Man Lymphocytes # (Manual) Monocytes # (Manual) PT INR APTT POC ABG pH POC ABG pCO2 POC ABG pO2 Sodium Potassium Chloride Carbon Dioxide BUN Creatinine Glucose POC Glucose 205 H 173 H Lactic Acid Calcium Phosphorus Total Creatine Kinase CK-MB (CK-2) CK-MB (CK-2) Rel Index Troponin T C-Reactive Protein Serum Total Protein Albumin Ykqmb-3-Lpnonsyiy Gamma Globulins PEP Interpretation Triglycerides LDL Cholesterol Direct HDL Cholesterol Urine WBC (Auto) Urine Creatinine Complement C3 Complement C4 08/08/17 08/08/17 08/08/17 06:33 11:32 17:58 WBC RBC Hgb Hct MCH MCHC Plt Count Lymph % (Auto) Owen % (Auto) Lymph # Owen # Seg Neutrophils % Lymphocytes % (Manual) Seg Neutrophils # Seg Neutrophils # Man Lymphocytes # (Manual) Monocytes # (Manual) PT INR APTT POC ABG pH POC ABG pCO2 POC ABG pO2 Sodium Potassium Chloride Carbon Dioxide BUN 29 H Creatinine Glucose 195 H POC Glucose 188 H 215 H Lactic Acid Calcium 8.2 L Phosphorus Total Creatine Kinase CK-MB (CK-2) CK-MB (CK-2) Rel Index Troponin T C-Reactive Protein Serum Total Protein Albumin Knfgb-6-Awbnhiqcc Gamma Globulins PEP Interpretation Triglycerides LDL Cholesterol Direct HDL Cholesterol Urine WBC (Auto) Urine Creatinine Complement C3 Complement C4 08/09/17 08/09/17 00:16 05:07 WBC RBC Hgb Hct MCH MCHC Plt Count Lymph % (Auto) Owen % (Auto) Lymph # Owen # Seg Neutrophils % Lymphocytes % (Manual) Seg Neutrophils # Seg Neutrophils # Man Lymphocytes # (Manual) Monocytes # (Manual) PT INR APTT POC ABG pH POC ABG pCO2 POC ABG pO2 Sodium Potassium Chloride Carbon Dioxide BUN Creatinine Glucose POC Glucose 193 H 231 H Lactic Acid Calcium Phosphorus Total Creatine Kinase CK-MB (CK-2) CK-MB (CK-2) Rel Index Troponin T C-Reactive Protein Serum Total Protein Albumin Xgysm-0-Kelbirtbc Gamma Globulins PEP Interpretation Triglycerides LDL Cholesterol Direct HDL Cholesterol Urine WBC (Auto) Urine Creatinine Complement C3 Complement C4
--- NOTE | 2017-08-09 11:15 | Progress Note ---
Assessment and Plan Out of the hospital Cardiac arrest manifested by ventricular fibrillation 40 minutes of ACLS before ROSC Family member reports patient declined ICD 30 days ago on amiodarone Anoxic encephalopathy Ischemic cardiomyopathy, LVEF 15-20% CAD s/p CABG 2005 at [place] ONE[facility] to LAD; COREY to RI; SVG to PLOM; SVG to RV branch and PDA branch Non-specific troponin Acute renal failure LLL pneumonia Supportive cardiac management. Subjective Date of service: 08/09/17 Principal diagnosis: cardiac arrest at home. Intubated and unresponcsive Interval history: patient had pulmonary arrest this morning thought secondary to an occluded endotracheal tube. Patient extubated and then re-intubated by anesthesia. Objective Vital Signs Temp Pulse Pulse Pulse Pulse Pulse Resp 08/09/17 09:20 64 08/09/17 09:19 64 08/09/17 08:39 98.5 F 08/09/17 08:00 66 08/09/17 04:25 52 L 08/09/17 03:19 97.6 F 08/09/17 02:00 63 16 08/09/17 01:00 57 L 16 08/09/17 00:00 99.7 F H 57 L 16 08/08/17 23:44 55 L 08/08/17 23:01 60 16 08/08/17 22:48 61 08/08/17 22:00 57 L 16 08/08/17 21:00 57 L 16 08/08/17 20:00 57 L 55 L 58 L 59 L 57 L 17 08/08/17 19:34 99.4 F 08/08/17 19:25 58 L 08/08/17 19:00 58 L 21 08/08/17 18:06 63 22 08/08/17 18:00 59 L 22 08/08/17 17:45 62 18 08/08/17 17:31 59 L 21 08/08/17 17:15 57 L 20 08/08/17 17:00 57 L 22 08/08/17 16:45 57 L 20 08/08/17 16:35 57 L 21 08/08/17 16:31 55 L 20 08/08/17 16:15 57 L 21 08/08/17 16:01 56 L 20 08/08/17 16:00 99.0 F 08/08/17 15:55 57 L 21 08/08/17 15:45 58 L 20 08/08/17 15:31 57 L 20 08/08/17 15:15 56 L 20 08/08/17 15:01 55 L 20 08/08/17 14:45 56 L 19 08/08/17 14:31 56 L 20 08/08/17 14:15 57 L 21 08/08/17 14:01 56 L 19 08/08/17 13:45 56 L 19 08/08/17 13:31 56 L 21 08/08/17 13:15 58 L 21 08/08/17 13:00 56 L 19 08/08/17 12:45 55 L 19 08/08/17 12:31 56 L 19 08/08/17 12:15 57 L 19 08/08/17 12:01 57 L 19 08/08/17 11:45 56 L 18 08/08/17 11:43 98.9 F 08/08/17 11:36 55 L 17 08/08/17 11:31 56 L 17 08/08/17 11:15 58 L 17 BP Pulse Ox 08/09/17 09:20 110/67 08/09/17 09:19 110/67 08/09/17 08:39 08/09/17 08:00 106/65 08/09/17 04:25 124/67 97 08/09/17 03:19 08/09/17 02:00 130/74 94 08/09/17 01:00 145/78 94 08/09/17 00:00 141/75 95 08/08/17 23:44 165/79 98 08/08/17 23:01 165/79 96 08/08/17 22:48 159/81 08/08/17 22:00 159/81 92 08/08/17 21:00 153/84 93 08/08/17 20:00 146/81 91 08/08/17 19:34 08/08/17 19:25 147/80 96 08/08/17 19:00 147/80 95 08/08/17 18:06 126/81 99 08/08/17 18:00 141/87 95 08/08/17 17:45 136/88 97 08/08/17 17:31 136/88 97 08/08/17 17:15 136/88 97 08/08/17 17:00 136/88 96 08/08/17 16:45 126/81 97 08/08/17 16:35 97 08/08/17 16:31 126/81 96 08/08/17 16:15 126/81 97 08/08/17 16:01 126/81 96 08/08/17 16:00 08/08/17 15:55 142/85 96 08/08/17 15:45 142/85 96 08/08/17 15:31 142/85 96 08/08/17 15:15 142/85 97 08/08/17 15:01 142/85 95 08/08/17 14:45 121/82 96 08/08/17 14:31 121/82 96 08/08/17 14:15 121/82 96 08/08/17 14:01 121/82 96 08/08/17 13:45 126/84 96 08/08/17 13:31 126/84 96 08/08/17 13:15 126/84 97 08/08/17 13:00 140/77 96 08/08/17 12:45 140/77 97 08/08/17 12:31 140/77 96 08/08/17 12:15 140/77 96 08/08/17 12:01 140/77 95 08/08/17 11:45 137/72 97 08/08/17 11:43 08/08/17 11:36 97 08/08/17 11:31 137/72 96 08/08/17 11:15 137/72 97 - Physical Examination General: Other (unresponsive, intubated on the vent) Cardiac: Positive: Reg Rate and Rhythm - Imaging and Cardiology EKG: image reviewed
[2017-08-09] MEDS: PEPCID IV SCH ×2 (12:00→21:02)
[2017-08-09 12:38] LABS: Bilirubin,Urine NEG (Negative); Blood,Urine LG (Negative); Color,Urine Red (Yellow); Nitrite,Urine NEG (Negative)
[2017-08-09 12:40] LABS: RBC,Urine > 182.0 /HPF (0.0-6.0)
[2017-08-09 14:32] LABS: BUN/Creatinine Ratio 25; Blood Urea Nitrogen 27 mg/dL (9-20); Calcium 8.2 mg/dL (8.4-10.2); Hemolysis Index 7
--- NOTE | 2017-08-09 15:08 | Consultation ---
History of Present Illness Consult date: 08/09/17 Reason for consult: other (respiratory failure) Chief complaint: respiratory failure - History of present illness History of present illness: 71 y/o male with respiratory failure s/p cardiac arrest and pneumonia with subsequent anoxic encephalopathy. We were asked to place a Trach and PEG for senior living ventilator management and enteral access. Past History Past Medical History: CAD, diabetes, heart failure, other (anoxic encephalopahy) Past Surgical History: CABG Social history: no significant social history (denies smoking or drinking) Family history: no significant family history (negative for kidney disease) Medications and Allergies Allergies Allergy/AdvReac Type Severity Reaction Status Date / Time acetaminophen [From Vicodin] Allergy Unknown Verified 07/27/17 18:13 hydrocodone [From Vicodin] Allergy Unknown Verified 07/27/17 18:13 zolpidem [From Ambien] Allergy Unknown Verified 07/27/17 18:13 Home Medications Medication Instructions Recorded Confirmed Last Taken Type Aspirin [Aspirin BABY CHEW TAB] 1 tab PO QDAY 07/29/17 07/29/17 07/25/17 History AtorvaSTATin [Lipitor] 40 mg PO QHS 07/29/17 07/29/17 07/25/17 History Clopidogrel [Plavix] 75 mg PO QDAY 07/29/17 07/29/17 07/25/17 History ISOSORBIDE MONOnitrate [Imdur ER] 30 mg PO DAILY 07/29/17 07/29/17 07/25/17 History Spironolactone [Aldactone] 25 mg PO QDAY 07/29/17 07/29/17 07/25/17 History Tamsulosin HCl [Flomax] 1 tab PO QDAY 07/29/17 07/29/17 07/25/17 History Carvedilol [Coreg] 12.5 mg PO BID 07/30/17 07/30/17 07/27/17 09:00 History Sacubitril/Valsartan [Entresto 49 49 - 51 mg PO BID 07/30/17 07/30/17 07/27/17 09:00 History mg-51 mg Tablet] Active Meds: Active Medications Acetaminophen (Tylenol) 650 mg PO Q6HR PRN PRN Reason: Fever Last Admin: 08/01/17 13:51 Dose: 650 mg Albuterol (Proventil) 2.5 mg IH Q3HRT PRN PRN Reason: Shortness Of Breath Amiodarone HCl (Cordarone) 200 mg PO BID [facility] Last Admin: 08/09/17 09:19 Dose: Not Given Lipase/Protease/Amylase (Sarah Cuenca 10,500 Unit) 1 each FEEDTUBE PRN PRN PRN Reason: For Clogged Feeding Tube Last Admin: 07/31/17 10:07 Dose: 1 each Aspirin (Baby Aspirin) 81 mg FEEDTUBE QDAY [facility] Last Admin: 08/09/17 09:19 Dose: Not Given Carvedilol (Coreg) 3.125 mg PO BID [facility] Last Admin: 08/09/17 09:19 Dose: Not Given Enoxaparin Sodium (Lovenox) 40 mg SUB-Q QDAY@2200 [facility] Last Admin: 08/08/17 22:49 Dose: 40 mg Famotidine (Pepcid) 20 mg IV BID [facility] Last Admin: 08/09/17 12:00 Dose: Not Given Hydrophilic Ointment (Vaseline Lip Therapy) 1 applic TP Q2HR PRN PRN Reason: Dry Lips Vasopressin 20 unit/ Sodium (Chloride) 101 mls @ 9.09 mls/hr IV TITR DANIEL; 0.03 UNITS/MIN PRN Reason: Protocol Last Titration: 07/30/17 09:21 Dose: 0 units/min, 0 mls/hr Norepinephrine (Levophed Drip 4 Mg/Ns 250 Ml) 4 mg in 250 mls @ 7.5 mls/hr IV TITR DANIEL; 2 MCG/MIN PRN Reason: Protocol Dextrose (D5w) 1,000 mls @ 75 mls/hr IV DIRECT [facility] Last Admin: 08/08/17 19:32 Dose: 75 mls/hr Vancomycin HCl (Vancomycin/Ns 1 Gm/250 Ml) 1 gm in 250 mls @ 166.667 mls/hr IV Q12H [facility] Last Admin: 08/09/17 09:49 Dose: 166.667 mls/hr Insulin Aspart (Novolog) 0 units SUB-Q QHS DANIEL PRN Reason: Protocol Last Admin: 08/08/17 21:47 Dose: Not Given Insulin Human Regular (Novolin R) 0 units SUB-Q Q6HR [facility] PRN Reason: Protocol Last Admin: 08/09/17 12:32 Dose: 2 units Lisinopril (Zestril) 5 mg PO QDAY [facility] Last Admin: 08/09/17 09:20 Dose: Not Given Lorazepam (Ativan) 1 mg IV Q1H PRN PRN Reason: seizures/twitching Multi-Ingred Cream/Lotion/Oil/Oint (Artificial Tears Ophth Oint) 1 applic OU Q4HR PRN PRN Reason: Dry Eye(s) Ondansetron HCl (Zofran) 4 mg IV Q8H PRN PRN Reason: N/V unrelieved by Reglan Simple Syrup (Simple Syrup) 15 ml FEEDTUBE PRN PRN PRN Reason: Hypoglycemia Simple Syrup (Simple Syrup) 30 ml FEEDTUBE PRN PRN PRN Reason: Hypoglycemia Sodium Chloride (Nacl 0.9% 500 Ml) 1 ml IV DIRECT DANIEL Vancomycin HCl (Vancomycin Pharmacy To Dose) 1 each IV PKCONSULT DANIEL PRN Reason: Protocol Exam Vital Signs Pulse Resp 28 L 12 07/27/17 18:02 07/27/17 18:02 - General physical appearance Positive: well developed - Neck Positive: trachea midline, no venous distension - Respiratory Positive: normal expansion - Cardiovascular Rhythm: regular - Abdomen Abdomen: Present: soft, bowel sounds normal - Neurologic Neurologic: other (intubated and not following commands) Results - Labs 08/08/17 06:33 08/09/17 13:58 Abnormal lab results 08/08/17 08/08/17 08/09/17 Range/Units 11:32 17:58 00:16 Sodium (137-145) mmol/L Chloride (98-107) mmol/L BUN (9-20) mg/dL Glucose (75-100) mg/dL POC Glucose 188 H 215 H 193 H (70-105) Calcium (8.4-10.2) mg/dL Urine WBC (Auto) (0.0-6.0) /HPF 08/09/17 08/09/17 08/09/17 Range/Units 05:07 12:05 12:10 Sodium (137-145) mmol/L Chloride (98-107) mmol/L BUN (9-20) mg/dL Glucose (75-100) mg/dL POC Glucose 231 H 221 H (70-105) Calcium (8.4-10.2) mg/dL Urine WBC (Auto) 167.0 H (0.0-6.0) /HPF 08/09/17 Range/Units 13:58 Sodium 136 L (137-145) mmol/L Chloride 97.6 L (98-107) mmol/L BUN 27 H (9-20) mg/dL Glucose 165 H (75-100) mg/dL POC Glucose (70-105) Calcium 8.2 L (8.4-10.2) mg/dL Urine WBC (Auto) (0.0-6.0) /HPF Diabetes panel 08/09/17 Range/Units 13:58 Sodium 136 L (137-145) mmol/L Potassium 4.0 (3.6-5.0) mmol/L Chloride 97.6 L (98-107) mmol/L Carbon Dioxide 28 (22-30) mmol/L BUN 27 H (9-20) mg/dL Creatinine 1.1 (0.8-1.5) mg/dL Glucose 165 H (75-100) mg/dL Calcium 8.2 L (8.4-10.2) mg/dL Calcium panel 08/09/17 Range/Units 13:58 Calcium 8.2 L (8.4-10.2) mg/dL Phosphorus 3.30 (2.5-4.5) mg/dL Pituitary panel 08/09/17 Range/Units 13:58 Sodium 136 L (137-145) mmol/L Potassium 4.0 (3.6-5.0) mmol/L Chloride 97.6 L (98-107) mmol/L Carbon Dioxide 28 (22-30) mmol/L BUN 27 H (9-20) mg/dL Creatinine 1.1 (0.8-1.5) mg/dL Glucose 165 H (75-100) mg/dL Calcium 8.2 L (8.4-10.2) mg/dL Adrenal panel 08/09/17 Range/Units 13:58 Sodium 136 L (137-145) mmol/L Potassium 4.0 (3.6-5.0) mmol/L Chloride 97.6 L (98-107) mmol/L Carbon Dioxide 28 (22-30) mmol/L BUN 27 H (9-20) mg/dL Creatinine 1.1 (0.8-1.5) mg/dL Glucose 165 H (75-100) mg/dL Calcium 8.2 L (8.4-10.2) mg/dL Assessment and Plan Discussed Trach and PEG with patient's family. Risks, benefits and alternatives were discussed which include but are not limited to bleeding, infection, injury to adjacent organs, need for more procedures/surgery, problems with the tubes and loss of airway during the procedure which can result in . I answered all their questions until they said they understood and did not have any more questions. They wish to proceed with the Trach and PEG. Consent form has been signed. Will call the schedulers to get him on the schedule for a bedside Trach and PEG at the next available opening.
[2017-08-09 15:11] LABS: Hemoglobin 10.8 gm/dl (11.8-15.2); Mean Corpuscular HGB Conc 33 % (32-34); Mean Corpuscular Hemoglobin 28 pg (28-32); Mean Corpuscular Volume 87 fl (84-94); Platelet Count 253 K/mm3 (140-440); Red Cell Distribution Width 14.2 % (13.2-15.2)
--- NOTE | 2017-08-09 17:46 | Progress Note ---
Assessment and Plan Assessment and plan: 71 year old man with history of CAD, CHF was brought to the emergency room after he had a cardiac arrest at home. He had a cough productive of yellow phlegm, fever 3 days. EMS was called, CPR was continued for another 40 minutes prior to arrival in the emergency room, he had a V. fib or V. tach rhythm for which he was shocked per EMS. CPR was continued in the emergency room, he was hypotensive and placed on levophed and vasopressin. Remains unresponsive. Neurologist evaaluated him EEG no active seizure. Showed slow waves Cardio-resp arrest at home. - Patient is comatose, on amiodarone - Patient is briefly Coded on 08/09/2017 due to malfunction of the ET tube Persistent vegetative state - Was evaluated by surgeon for PEG and trach placement Shock. Cardiogenic +/- septic shock. V fib sp shock off vasopressor, BP is stable. -Apparently, patient declined ICD 30 days ago Hematuria - Likely due to UTI vs prostatitis cancer - We will monitor, if no improvement will consult urology - On antibiotics for UTI Acute hypoxic Respiratory failure on MV >96 hours -continue vent management Ischemic cardiomyopathy, LVEF 15-20% - CAD s/p CABG 2006 at [place] - ONEILL to LAD; COREY to RI; SVG to PLOM; SVG to RV branch and PDA branch Non-specific troponin - Not consistent with ACS Acute kidney Injury due to acute tubular necrosis - Resolved CAD s/p CABG. 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 - Anoxic encephalopathy. EEG showed no active seizure, slow waves - Dr. Brown following Hypernatremia - Resolved Leukocytosis: From presumed aspiration pneumonia versus community acquired pneumonia. Blood cultures no growth to date. Continue Zosyn/ vanco ID following Pneumonia/Septic shock: left lobar, likely aspiration Blood culture so far are neg. continue abx -influenza neg, legionella neg, Strep pneumoniae neg -crp=4 -repeat resp cx 08/01 +MRSA (likely a colonizer) Hyperglycemia: Monitor blood sugars with sliding scale coverage for now - Full code status - Prophylaxis with Lovenox, GI with Pepcid. The high probability of a clinically significant, sudden or life threatening deterioration of the [cv, neuro, renal, pulmonary] system(s) required my full and direct attention, intervention and personal management. The aggregate critical care time was [32] minutes. This time is in addition to time spent performing reported procedures but includes the following: [x] Data Review and interpretation [x] Patient assessment and monitoring of vital signs [x] Documentation [x] Medication orders and management History Interval history: Patient was seen and evaluated this morning, patient is non communicative. patient was coded briefly this morning due to asystole 2/2 malfunction of ET tube. Successfully resuscitated after 2 minutes of code. Hospitalist Physical - Physical exam Narrative exam: Patient was on mechanical ventilation, currently on CPAP trial. The patient appeared well nourished and normally developed. Vital signs as documented. Head exam is unremarkable. No scleral icterus . Neck is without jugular venous distension, thyromegaly, or carotid bruits. Lungs are clear to auscultation. Cardiac exam reveals regular rate and Rhythm. First and second heart sounds normal. No murmurs, rubs or gallops. Abdominal exam reveals normal bowel sounds, no masses, no organomegaly and no aortic enlargement. Extremities are nonedematous and both femoral and pedal pulses are normal. blood in the catheter. [employer] INSTRUCTOR: Comatose. - Constitutional Vitals: Temp Pulse Resp BP Pulse Ox 98.7 F 58 L 16 123/74 99 08/09/17 12:54 08/09/17 12:00 08/09/17 02:00 08/09/17 12:00 08/09/17 12:00 General appearance: Present: no acute distress, well-nourished (intubated and vent supported), other Results - Labs CBC & Chem 7: 08/09/17 14:56 08/09/17 13:58 Labs: Laboratory Last Values WBC 15.3 K/mm3 (4.5-11.0) H 08/09/17 14:56 RBC 3.80 M/mm3 (3.65-5.03) 08/09/17 14:56 Hgb 10.8 gm/dl (11.8-15.2) L 08/09/17 14:56 Hct 33.0 % (35.5-45.6) L 08/09/17 14:56 MCV 87 fl (84-94) 08/09/17 14:56 MCH 28 pg (28-32) 08/09/17 14:56 MCHC 33 % (32-34) 08/09/17 14:56 RDW 14.2 % (13.2-15.2) 08/09/17 14:56 Plt Count 253 K/mm3 (140-440) 08/09/17 14:56 Lymph % (Auto) 7.6 % (13.4-35.0) L 08/08/17 06:33 [place] % (Auto) 9.9 % (0.0-7.3) H 08/08/17 06:33 Eos % (Auto) 1.5 % (0.0-4.3) 08/08/17 06:33 Baso % (Auto) 0.6 % (0.0-1.8) 08/08/17 06:33 Lymph # 1.1 K/mm3 (1.2-5.4) L 08/08/17 06:33 Stark # 1.5 K/mm3 (0.0-0.8) H 08/08/17 06:33 Eos # 0.2 K/mm3 (0.0-0.4) 08/08/17 06:33 Baso # 0.1 K/mm3 (0.0-0.1) 08/08/17 06:33 Add Manual Diff Complete 07/27/17 18:26 Total Counted 100 07/27/17 18:26 Seg Neutrophils % 80.4 % (40.0-70.0) H 08/08/17 06:33 Seg Neuts % (Manual) 57.0 % (40.0-70.0) 07/27/17 18:26 Band Neutrophils % 0 % 07/27/17 18:26 Lymphocytes % (Manual) 36.0 % (13.4-35.0) H 07/27/17 18:26 Reactive Lymphs % (Man) 0 % 07/27/17 18:26 Monocytes % (Manual) 7.0 % (0.0-7.3) 07/27/17 18:26 Eosinophils % (Manual) 0 % (0.0-4.3) 07/27/17 18:26 Basophils % (Manual) 0 % (0.0-1.8) 07/27/17 18:26 Metamyelocytes % 0 % 07/27/17 18:26 Myelocytes % 0 % 07/27/17 18:26 Promyelocytes % 0 % 07/27/17 18:26 Blast Cells % 0 % 07/27/17 18:26 Nucleated RBC % Not Reportable 07/27/17 18:26 Seg Neutrophils # 11.9 K/mm3 (1.8-7.7) H 08/08/17 06:33 Seg Neutrophils # Man 8.9 K/mm3 (1.8-7.7) H 07/27/17 18:26 Band Neutrophils # 0.0 K/mm3 07/27/17 18:26 Lymphocytes # (Manual) 5.6 K/mm3 (1.2-5.4) H 07/27/17 18:26 Abs React Lymphs (Man) 0.0 K/mm3 07/27/17 18:26 Monocytes # (Manual) 1.1 K/mm3 (0.0-0.8) H 07/27/17 18:26 Eosinophils # (Manual) 0.0 K/mm3 (0.0-0.4) 07/27/17 18:26 Basophils # (Manual) 0.0 K/mm3 (0.0-0.1) 07/27/17 18:26 Metamyelocytes # 0.0 K/mm3 07/27/17 18:26 Myelocytes # 0.0 K/mm3 07/27/17 18:26 Promyelocytes # 0.0 K/mm3 07/27/17 18:26 Blast Cells # 0.0 K/mm3 07/27/17 18:26 WBC Morphology Not Reportable 07/27/17 18:26 Hypersegmented Neuts Not Reportable 07/27/17 18:26 Hyposegmented Neuts Not Reportable 07/27/17 18:26 Hypogranular Neuts Not Reportable 07/27/17 18:26 Smudge Cells Not Reportable 07/27/17 18:26 Toxic Granulation Not Reportable 07/27/17 18:26 Toxic Vacuolation Not Reportable 07/27/17 18:26 Dohle Bodies Not Reportable 07/27/17 18:26 Pelger-Huet Anomaly Not Reportable 07/27/17 18:26 [place] Rods Not Reportable 07/27/17 18:26 Platelet Estimate Consistent w auto 07/27/17 18:26 Clumped Platelets Not Reportable 07/27/17 18:26 Plt Clumps, EDTA Not Reportable 07/27/17 18:26 Large Platelets Not Reportable 07/27/17 18:26 Giant Platelets Not Reportable 07/27/17 18:26 Platelet Satelliting Not Reportable 07/27/17 18:26 Plt Morphology Comment Not Reportable 07/27/17 18:26 RBC Morphology Not Reportable 07/27/17 18:26 Dimorphic RBCs Not Reportable 07/27/17 18:26 Polychromasia Not Reportable 07/27/17 18:26 Hypochromasia Not Reportable 07/27/17 18:26 Poikilocytosis Not Reportable 07/27/17 18:26 Anisocytosis Rare 07/27/17 18:26 Microcytosis Not Reportable 07/27/17 18:26 Macrocytosis Not Reportable 07/27/17 18:26 Spherocytes Not Reportable 07/27/17 18:26 Pappenheimer Bodies Not Reportable 07/27/17 18:26 Sickle Cells Not Reportable 07/27/17 18:26 Target Cells Not Reportable 07/27/17 18:26 Tear Drop Cells Not Reportable 07/27/17 18:26 Ovalocytes Not Reportable 07/27/17 18:26 Helmet Cells Not Reportable 07/27/17 18:26 Campbell-Bolton Bodies Not Reportable 07/27/17 18:26 [place] Rings Not Reportable 07/27/17 18:26 [place] Cells Not Reportable 07/27/17 18:26 Bite Cells Not Reportable 07/27/17 18:26 Crenated Cell Not Reportable 07/27/17 18:26 Elliptocytes Not Reportable 07/27/17 18:26 Acanthocytes (Spur) Not Reportable 07/27/17 18:26 Rouleaux Not Reportable 07/27/17 18:26 Hemoglobin C Crystals Not Reportable 07/27/17 18:26 Schistocytes Not Reportable 07/27/17 18:26 Malaria parasites Not Reportable 07/27/17 18:26 Mina Bodies Not Reportable 07/27/17 18:26 Hem Pathologist Commnt No 07/27/17 18:26 PT 15.6 Sec. (12.2-14.9) H 07/27/17 18:26 INR 1.18 (0.87-1.13) H 07/27/17 18:26 APTT 38.5 Sec. (24.2-36.6) H 07/27/17 18:26 POC ABG pH 7.490 (7.35-7.45) H 08/04/17 10:58 POC ABG pCO2 39.0 (35-45) 08/04/17 10:58 POC ABG pO2 71 (80-105) L 08/04/17 10:58 POC ABG HCO3 29.7 08/04/17 10:58 POC ABG Total CO2 31 08/04/17 10:58 POC ABG O2 Sat 95 08/04/17 10:58 POC ABG Base Excess 6 08/04/17 10:58 FiO2 25 % 08/04/17 10:58 Sodium 136 mmol/L (137-145) L 08/09/17 13:58 Potassium 4.0 mmol/L (3.6-5.0) 08/09/17 13:58 Chloride 97.6 mmol/L (98-107) L 08/09/17 13:58 Carbon Dioxide 28 mmol/L (22-30) 08/09/17 13:58 Anion Gap 14 mmol/L 08/09/17 13:58 BUN 27 mg/dL (9-20) H 08/09/17 13:58 Creatinine 1.1 mg/dL (0.8-1.5) 08/09/17 13:58 Estimated GFR > 60 ml/min 08/09/17 13:58 BUN/Creatinine Ratio 25 % 08/09/17 13:58 Glucose 165 mg/dL (75-100) H 08/09/17 13:58 POC Glucose 221 (70-105) H 08/09/17 12:10 Lactic Acid 1.80 mmol/L (0.7-2.0) 08/03/17 03:29 Calcium 8.2 mg/dL (8.4-10.2) L 08/09/17 13:58 Phosphorus 3.30 mg/dL (2.5-4.5) 08/09/17 13:58 Magnesium 1.90 mg/dL (1.7-2.3) 08/09/17 13:58 Total Creatine Kinase 434 units/L (55-170) H 07/28/17 05:44 CK-MB (CK-2) 10.8 ng/mL (0.0-4.0) H 07/28/17 05:44 CK-MB (CK-2) Rel Index 2.4 (0-4) 07/28/17 05:44 Troponin T 0.521 ng/mL (0.00-0.029) H* D 07/28/17 05:44 C-Reactive Protein 4.00 mg/dL (0.00-1.30) H 08/01/17 19:42 Serum Total Protein 4.9 g/dL (6.1-8.1) L 07/29/17 Unknown Albumin 2.9 g/dL (3.8-4.8) L 07/29/17 Unknown Hzxuj-5-Apykdlcyp 0.4 g/dL (0.2-0.3) H 07/29/17 Unknown Almzi-4-Yzqsxunaw 0.6 g/dL (0.5-0.9) 07/29/17 Unknown Beta Globulins 0.2 g/dL (0.2-0.5) 07/29/17 Unknown Gamma Globulins 0.5 g/dL (0.8-1.7) L 07/29/17 Unknown Abnorm Protein Band 1 see below 07/29/17 Unknown PEP Interpretation see below H 07/29/17 Unknown Triglycerides 190 mg/dL (2-149) H 07/27/17 18:26 Cholesterol 93 mg/dL (50-199) 07/27/17 18:26 LDL Cholesterol Direct 34 mg/dL (50-130) L 07/27/17 18:26 HDL Cholesterol 21 mg/dL (40-59) L 07/27/17 18:26 Cholesterol/HDL Ratio 4.42 % 07/27/17 18:26 Urine Color Red (Yellow) 08/09/17 12:05 Urine Turbidity Clear (Clear) 08/09/17 12:05 Urine pH 7.0 (5.0-7.0) 08/09/17 12:05 Ur Specific [place] 1.009 (1.003-1.030) 08/09/17 12:05 Urine Protein 100 mg/dl mg/dL (Negative) 08/09/17 12:05 Urine Glucose (UA) 50 mg/dL (Negative) 08/09/17 12:05 Urine Ketones Neg mg/dL (Negative) 08/09/17 12:05 Urine Blood Lg (Negative) 08/09/17 12:05 Urine Nitrite Neg (Negative) 08/09/17 12:05 Ur Reducing Substances Not Reportable 07/27/17 22:46 Urine Bilirubin Neg (Negative) 08/09/17 12:05 Urine Ictotest Not Reportable 07/27/17 22:46 Urine Urobilinogen 4.0 mg/dL (<2.0) 08/09/17 12:05 Ur Leukocyte Esterase Sm (Negative) 08/09/17 12:05 Urine WBC (Auto) 167.0 /HPF (0.0-6.0) H 08/09/17 12:05 Urine RBC (Auto) > 182.0 /HPF (0.0-6.0) 08/09/17 12:05 U Epithel Cells (Auto) 1.0 /HPF (0-13.0) 08/09/17 12:05 Urine Bacteria (Auto) 1+ /HPF (Negative) 07/27/17 22:46 Amorphous Crystals Few 07/28/17 16:20 Urine Mucus Few /HPF 08/01/17 19:45 Urine Yeast (Budding) Few /HPF 07/28/17 16:20 Urine Eosinophils None seen (None Seen) 07/28/17 16:20 Urine Creatinine 58.4 mg/dL (0.1-20.0) H 07/28/17 16:20 Urine Sodium 94 mmol/L 07/28/17 16:20 Fraction Sodium Excret 2.6 07/28/17 16:20 Vancomycin Trough 7.1 ug/mL (5.0-20.0) 08/07/17 14:18 Urine Opiates Screen Presumptive negative 07/27/17 22:46 Urine Methadone Screen Presumptive negative 07/27/17 22:46 Ur Barbiturates Screen Presumptive negative 07/27/17 22:46 Ur Phencyclidine Scrn Presumptive negative 07/27/17 22:46 Ur Amphetamines Screen Presumptive negative 07/27/17 22:46 U Benzodiazepines Scrn Presumptive negative 07/27/17 22:46 Urine Cocaine Screen Presumptive negative 07/27/17 22:46 U Marijuana (THC) Screen Presumptive negative 07/27/17 22:46 Drugs of Abuse Note Disclamer 07/27/17 22:46 Proteinase 3 (PR3) Ab <1.0 AI (<1.0) 07/28/17 16:00 Myeloperoxidase Ab <1.0 AI (<1.0) 07/28/17 16:00 Double Strand DNA Ab <1 IU/mL (<=4) 07/28/17 16:00 Complement C3 67 mg/dL (90-180) L 07/28/17 16:00 Complement C4 14 mg/dL (16-47) L 07/28/17 16:00 Hepatitis A IgM Ab Non-reactive (NonReactive) 07/28/17 16:00 Hep Bs Antigen Non-reactive (Negative) 07/28/17 16:00 Hep B Core IgM Ab Non-reactive (NonReactive) 07/28/17 16:00 Hepatitis C Antibody Non-reactive (NonReactive) 07/28/17 16:00 Urine Legionella Ag Not detected (Not Detected) 08/01/17 19:45 Miscellaneous Test Flexitest 1 08/01/17 19:45 Blood Type A POSITIVE 07/27/17 18:24 Antibody Screen Negative 07/27/17 18:24
[2017-08-09] MEDS: LOVENOX SUB-Q SCH (21:51)
[2017-08-10] MEDS: NOVOLOG SUB-Q SCH ×2 (04:10→22:40)
[2017-08-10 04:17] LABS: Basophils % (Auto) 0.3 % (0.0-1.8); Eosinophils # (Auto) 0.1 K/mm3 (0.0-0.4); Eosinophils % (Auto) 1.1 % (0.0-4.3); Hematocrit 32.5 % (35.5-45.6); Hemoglobin 10.8 gm/dl (11.8-15.2); Lymphocytes # (Auto) 1.3 K/mm3 (1.2-5.4); Lymphocytes % (Auto) 10.2 % (13.4-35.0); Mean Corpuscular HGB Conc 33 % (32-34); Mean Corpuscular Hemoglobin 29 pg (28-32); Mean Corpuscular Volume 87 fl (84-94); Monocytes # (Auto) 1.6 K/mm3 (0.0-0.8); Platelet Count 243 K/mm3 (140-440); Red Blood Count 3.72 M/mm3 (3.65-5.03); Red Cell Distribution Width 14.1 % (13.2-15.2)
[2017-08-10 04:26] LABS: INR 1.07 (0.87-1.13)
[2017-08-10 04:27] LABS: Partial Thromboplastin Time 31.7 Sec. (24.2-36.6)
[2017-08-10 04:36] LABS: BUN/Creatinine Ratio 30; Blood Urea Nitrogen 30 mg/dL (9-20); Calcium 8.2 mg/dL (8.4-10.2); Hemolysis Index 8
[2017-08-10] MEDS ORDERED: NACL 0.9% 1000 ML 1,000 ML ONE (07:31)
[2017-08-10] MEDS ORDERED: VERSED ONE (07:49)
[2017-08-10] MEDS ORDERED: DIPRIVAN 10 MG/ML IV ONE (07:50)
[2017-08-10] MEDS ORDERED: NACL 0.9% 1000 ML 1,000 ML IV SCH (08:00)
--- NOTE | 2017-08-10 08:00 | Anesthesia Consultation ---
Anesthesia Consult and Med Hx Date of service: 08/10/17 - Pulmonary Exam CTA: No (rhochii, diminished ) - Cardiac Exam Anesthetic Concerns: irregular - Pre-Operative Health Status ASA Pre-Surgery Classification: ASA4 Proposed Anesthetic Plan: MAC - Pre-Anesthesia Comment Pre-Anesthesia Comments: Cardiac arrest at home, In hospital code, last 08/09/16 @ 0700, Anoxic Encephalopathy, ventilator-unresponsive EF 15-20%, MRSA blood - Pulmonary Hx Respiratory Symptoms: Yes (Respiratory Failure ) Hx Pneumonia: Yes - Cardiovascular System Hx Hypertension: Yes Hx Coronary Artery Disease: Yes (CABG ) Hx Heart Attack/AMI: Yes Hx Cardia Arrhythmia: Yes - Endocrine Hx Renal Disease: Yes (Acute Renal Failure )
--- NOTE | 2017-08-10 08:30 | Anesthesia Day of Surgery ---
Anesthesia Day of Surgery - Day of Surgery Patient Examined: Yes Patient H&P Reviewed: Yes Patient is NPO: Yes
[2017-08-10] MEDS ORDERED: WATER FOR IRRIG STERILE IR ONE (09:13)
--- NOTE | 2017-08-10 09:19 | Post Operative Note ---
Pre-op diagnosis: Anoxic brain injury, respiratory failure Procedure: Percutaneous tracheostomy, and PEG insertion Anesthesia: GETA, local Surgeon: JC HTOMAS Applied Technologist: VAUGHN CHUN Estimated blood loss: minimal Pathology: none Condition: critical Disposition: ICU
[2017-08-10] MEDS ORDERED: ZEMURON IV ONE ×2 (09:34)
[2017-08-10] MEDS ORDERED: XYLOCAINE MPF 2% ONE (09:34)
[2017-08-10] MEDS: CORDARONE PO SCH ×2 (10:23→22:39)
[2017-08-10] MEDS: BABY ASPIRIN FEEDTUBE SCH (10:23)
[2017-08-10] MEDS: COREG PO SCH ×2 (10:23→22:39)
[2017-08-10] MEDS: ZESTRIL PO SCH (10:24)
--- NOTE | 2017-08-10 10:32 | Progress Note ---
Assessment and Plan Out of the hospital Cardiac arrest manifested by ventricular fibrillation 40 minutes of ACLS before ROSC Family member reports patient declined ICD 30 days ago on oral amiodarone Anoxic encephalopathy Ischemic cardiomyopathy, LVEF 15-20% CAD s/p CABG 2005 at [place] ONEILL to LAD; COREY to RI; SVG to PLOM; SVG to RV branch and PDA branch Non-specific troponin Acute renal failure LLL pneumonia Supportive cardiac management. Subjective Date of service: 08/10/17 Principal diagnosis: cardiac arrest at home. Intubated and unresponcsive Interval history: status post trach and PEG placement this morning. Objective Vital Signs Temp Pulse Pulse Pulse Pulse Pulse Pulse 08/10/17 09:17 99.1 F 61 08/10/17 09:00 61 08/10/17 08:20 69 08/10/17 08:01 59 L 08/10/17 08:00 99.1 F 08/10/17 07:30 99.5 F 58 L 08/10/17 07:00 61 08/10/17 06:00 58 L 08/10/17 05:00 62 08/10/17 04:00 98.4 F 62 58 L 58 L 58 L 58 L 58 L 08/10/17 03:24 60 08/10/17 03:01 60 08/10/17 02:00 62 08/10/17 01:00 58 L 08/10/17 00:00 58 L 08/09/17 23:54 98.9 F 08/09/17 23:48 08/09/17 23:41 55 L 08/09/17 23:08 57 L 08/09/17 23:01 62 08/09/17 22:00 58 L 08/09/17 21:03 57 L 08/09/17 21:00 57 L 08/09/17 20:00 98.8 F 58 L 08/09/17 19:29 58 L 08/09/17 19:00 60 08/09/17 18:32 98.5 F 08/09/17 18:00 59 L 08/09/17 17:10 58 L 08/09/17 17:00 60 08/09/17 16:00 98.5 F 61 08/09/17 15:00 57 L 08/09/17 14:00 60 08/09/17 13:00 60 08/09/17 12:54 98.7 F 08/09/17 12:35 57 L 08/09/17 12:01 57 L 08/09/17 12:00 58 L 08/09/17 11:00 58 L Pulse Resp BP Pulse Ox 08/10/17 09:17 6 L 140/83 97 08/10/17 09:00 6 L 140/83 97 08/10/17 08:20 129/77 97 08/10/17 08:01 16 129/77 97 08/10/17 08:00 98 08/10/17 07:30 16 129/77 99 08/10/17 07:00 16 135/81 97 08/10/17 06:00 16 117/70 97 08/10/17 05:00 7 L 132/75 96 08/10/17 04:00 58 L 16 129/75 97 08/10/17 03:24 117/66 98 08/10/17 03:01 16 117/66 96 08/10/17 02:00 17 135/76 96 08/10/17 01:00 17 137/73 98 08/10/17 00:00 9 L 129/70 98 08/09/17 23:54 08/09/17 23:48 16 100 08/09/17 23:41 16 124/68 99 08/09/17 23:08 136/80 99 08/09/17 23:01 18 136/80 98 08/09/17 22:00 13 124/74 98 08/09/17 21:03 106/62 08/09/17 21:00 16 122/71 97 08/09/17 20:00 16 109/65 97 08/09/17 19:29 113/64 98 08/09/17 19:00 18 129/76 98 08/09/17 18:32 08/09/17 18:00 18 133/76 98 08/09/17 17:10 16 95 08/09/17 17:00 16 121/72 95 08/09/17 16:00 16 104/61 95 08/09/17 15:00 16 117/72 98 08/09/17 14:00 16 101/65 98 08/09/17 13:00 16 119/74 98 08/09/17 12:54 08/09/17 12:35 16 98 08/09/17 12:01 7 L 116/70 98 08/09/17 12:00 123/74 99 08/09/17 11:00 16 91/58 97 - Physical Examination General: Other (intubated on the vent) Cardiac: Positive: Reg Rate and Rhythm - Labs and Meds Coagulation 08/10/17 Range/Units 03:32 PT 14.5 (12.2-14.9) Sec. INR 1.07 (0.87-1.13) APTT 31.7 (24.2-36.6) Sec. CBC 08/09/17 08/10/17 Range/Units 14:56 03:32 WBC 15.3 H 12.3 H (4.5-11.0) K/mm3 RBC 3.80 3.72 (3.65-5.03) M/mm3 Hgb 10.8 L 10.8 L (11.8-15.2) gm/dl Hct 33.0 L 32.5 L (35.5-45.6) % Plt Count 253 243 (140-440) K/mm3 Lymph # 1.3 (1.2-5.4) K/mm3 [place] # 1.6 H (0.0-0.8) K/mm3 Eos # 0.1 (0.0-0.4) K/mm3 Baso # 0.0 (0.0-0.1) K/mm3 Comprehensive Metabolic Panel 08/09/17 08/10/17 Range/Units 13:58 03:32 Sodium 136 L 136 L (137-145) mmol/L Potassium 4.0 4.4 (3.6-5.0) mmol/L Chloride 97.6 L 97.5 L (98-107) mmol/L Carbon Dioxide 28 26 (22-30) mmol/L BUN 27 H 30 H (9-20) mg/dL Creatinine 1.1 1.0 (0.8-1.5) mg/dL Glucose 165 H 144 H (75-100) mg/dL Calcium 8.2 L 8.2 L (8.4-10.2) mg/dL - Imaging and Cardiology EKG: image reviewed
--- NOTE | 2017-08-10 10:33 | Progress Note ---
Assessment and Plan 71 y/o male with out of hospital cardiac arrest (Vfib/Vtach), with acute renal failure, and metabolic acidosis and now anoxic encephalopathy, not on sedation. 1. Trached and Pegged this am. Stable. Await surgery to tell us when safe to use peg. Will start weaning vent immediately. 2. Continue to monitor off sedations. Patient has not been on sedation since transfer to the ICU 13 days ago. He was given some sedation during the procedure this am but this will not continue. 3. UA is mildly positive. No fever, mild elevation in white count but this is improving. Vanco stopped. ID has been following. Will await cytology and continue to monitor off abx therapy for now. 4. LTACH will likely be the next step, referral has been made. Will follow up with neurology for any further recommendations. CCT 31 minutes. Subjective Date of service: 08/10/17 Principal diagnosis: cardiac arrest at home. Intubated and unresponcsive Interval history: Trached and pegged this am. Stable. Still not responsive. No further issues with endotracheal tube. Still no reasoning as to why the tube became occluded, at least this is the working diagnosis. Objective Vital Signs - 12hr 08/09/17 08/09/17 08/09/17 23:01 23:08 23:41 Temperature Pulse Rate 62 57 L 55 L Pulse Rate [ Apical] Pulse Rate [ From Monitor] Pulse Rate [ Left Dorsalis Pedis] Pulse Rate [ Left Radial] Pulse Rate [ Right Dorsalis Pedis] Pulse Rate [ Right Radial] Respiratory 18 16 Rate Blood Pressure 136/80 136/80 124/68 O2 Sat by Pulse 98 99 99 Oximetry 08/09/17 08/09/17 08/10/17 23:48 23:54 00:00 Temperature 98.9 F Pulse Rate 58 L Pulse Rate [ Apical] Pulse Rate [ From Monitor] Pulse Rate [ Left Dorsalis Pedis] Pulse Rate [ Left Radial] Pulse Rate [ Right Dorsalis Pedis] Pulse Rate [ Right Radial] Respiratory 16 9 L Rate Blood Pressure 129/70 O2 Sat by Pulse 100 98 Oximetry 08/10/17 08/10/17 08/10/17 01:00 02:00 03:01 Temperature Pulse Rate 58 L 62 60 Pulse Rate [ Apical] Pulse Rate [ From Monitor] Pulse Rate [ Left Dorsalis Pedis] Pulse Rate [ Left Radial] Pulse Rate [ Right Dorsalis Pedis] Pulse Rate [ Right Radial] Respiratory 17 17 16 Rate Blood Pressure 137/73 135/76 117/66 O2 Sat by Pulse 98 96 96 Oximetry 08/10/17 08/10/17 08/10/17 03:24 04:00 05:00 Temperature 98.4 F Pulse Rate 60 62 62 Pulse Rate [ 58 L Apical] Pulse Rate [ 58 L From Monitor] Pulse Rate [ 58 L Left Dorsalis Pedis] Pulse Rate [ 58 L Left Radial] Pulse Rate [ 58 L Right Dorsalis Pedis] Pulse Rate [ 58 L Right Radial] Respiratory 16 7 L Rate Blood Pressure 117/66 129/75 132/75 O2 Sat by Pulse 98 97 96 Oximetry 08/10/17 08/10/17 08/10/17 06:00 07:00 07:30 Temperature 99.5 F Pulse Rate 58 L 61 58 L Pulse Rate [ Apical] Pulse Rate [ From Monitor] Pulse Rate [ Left Dorsalis Pedis] Pulse Rate [ Left Radial] Pulse Rate [ Right Dorsalis Pedis] Pulse Rate [ Right Radial] Respiratory 16 16 16 Rate Blood Pressure 117/70 135/81 129/77 O2 Sat by Pulse 97 97 99 Oximetry 08/10/17 08/10/17 08/10/17 08:00 08:01 08:20 Temperature 99.1 F Pulse Rate 59 L 69 Pulse Rate [ Apical] Pulse Rate [ From Monitor] Pulse Rate [ Left Dorsalis Pedis] Pulse Rate [ Left Radial] Pulse Rate [ Right Dorsalis Pedis] Pulse Rate [ Right Radial] Respiratory 16 Rate Blood Pressure 129/77 129/77 O2 Sat by Pulse 98 97 97 Oximetry 08/10/17 08/10/17 09:00 09:17 Temperature 99.1 F Pulse Rate 61 61 Pulse Rate [ Apical] Pulse Rate [ From Monitor] Pulse Rate [ Left Dorsalis Pedis] Pulse Rate [ Left Radial] Pulse Rate [ Right Dorsalis Pedis] Pulse Rate [ Right Radial] Respiratory 6 L 6 L Rate Blood Pressure 140/83 140/83 O2 Sat by Pulse 97 97 Oximetry Constitutional: comatose (eyes open only when stimulated, not following commands , flaccid extremities), other (full vent support currently) Eyes: non-icteric ENT: oropharynx moist Neck: supple, no JVD Effort: normal Ascultation: Bilateral: clear, diminished breath sounds Percussion: Bilateral: not dull Cardiovascular: regular rate and rhythm Gastrointestinal: normoactive bowel sounds, soft, non-tender, non-distended Integumentary: normal Extremities: no cyanosis, no edema, pink and warm Neurologic: other (see above) Psychiatric: other (unable to assess) CBC and BMP: 08/10/17 03:32 08/10/17 03:32 ABG, PT/INR, D-dimer: ABG POC ABG pH 7.490 (7.35-7.45) H 08/04/17 10:58 POC ABG pCO2 39.0 (35-45) 08/04/17 10:58 POC ABG pO2 71 (80-105) L 08/04/17 10:58 POC ABG HCO3 29.7 08/04/17 10:58 POC ABG Total CO2 31 08/04/17 10:58 POC ABG O2 Sat 95 08/04/17 10:58 PT/INR, D-dimer PT 14.5 Sec. (12.2-14.9) 08/10/17 03:32 INR 1.07 (0.87-1.13) 08/10/17 03:32 Abnormal lab findings: Abnormal Labs 07/27/17 07/27/17 07/27/17 18:26 18:26 18:26 WBC 15.6 H RBC Hgb Hct MCH MCHC Plt Count 115 L Lymph % (Auto) [place] % (Auto) Lymph # [place] # Seg Neutrophils % Lymphocytes % (Manual) 36.0 H Seg Neutrophils # Seg Neutrophils # Man 8.9 H Lymphocytes # (Manual) 5.6 H Monocytes # (Manual) 1.1 H PT 15.6 H INR 1.18 H APTT 38.5 H POC ABG pH POC ABG pCO2 POC ABG pO2 Sodium Potassium Chloride Carbon Dioxide 21 L BUN Creatinine Glucose 252 H POC Glucose Lactic Acid Calcium 7.7 L Phosphorus Total Creatine Kinase CK-MB (CK-2) CK-MB (CK-2) Rel Index Troponin T 0.090 H C-Reactive Protein Serum Total Protein Albumin Xxcxf-7-Zbkycjcno Gamma Globulins PEP Interpretation Triglycerides 190 H LDL Cholesterol Direct 34 L HDL Cholesterol 21 L Urine WBC (Auto) Urine Creatinine Complement C3 Complement C4 07/27/17 07/27/17 07/27/17 19:02 19:25 21:43 WBC RBC Hgb Hct MCH MCHC Plt Count Lymph % (Auto) [place] % (Auto) Lymph # [place] # Seg Neutrophils % Lymphocytes % (Manual) Seg Neutrophils # Seg Neutrophils # Man Lymphocytes # (Manual) Monocytes # (Manual) PT INR APTT POC ABG pH 7.155 L POC ABG pCO2 47.7 H POC ABG pO2 229 H Sodium Potassium Chloride Carbon Dioxide BUN Creatinine Glucose POC Glucose Lactic Acid 6.00 H* Calcium Phosphorus Total Creatine Kinase CK-MB (CK-2) 4.8 H CK-MB (CK-2) Rel Index Troponin T 0.149 H* D C-Reactive Protein Serum Total Protein Albumin Xcagi-0-Nmrfsffew Gamma Globulins PEP Interpretation Triglycerides LDL Cholesterol Direct HDL Cholesterol Urine WBC (Auto) Urine Creatinine Complement C3 Complement C4 07/27/17 07/27/17 07/28/17 22:47 22:47 01:47 WBC RBC Hgb Hct MCH MCHC Plt Count Lymph % (Auto) [place] % (Auto) Lymph # [place] # Seg Neutrophils % Lymphocytes % (Manual) Seg Neutrophils # Seg Neutrophils # Man Lymphocytes # (Manual) Monocytes # (Manual) PT INR APTT POC ABG pH POC ABG pCO2 POC ABG pO2 Sodium Potassium Chloride Carbon Dioxide BUN Creatinine Glucose POC Glucose 199 H Lactic Acid 2.40 H* Calcium Phosphorus Total Creatine Kinase 222 H CK-MB (CK-2) 9.4 H CK-MB (CK-2) Rel Index 4.2 H Troponin T 0.852 H* D C-Reactive Protein Serum Total Protein Albumin Eulda-1-Ndryuerde Gamma Globulins PEP Interpretation Triglycerides LDL Cholesterol Direct HDL Cholesterol Urine WBC (Auto) Urine Creatinine Complement C3 Complement C4 07/28/17 07/28/17 07/28/17 05:29 05:44 05:44 WBC RBC Hgb Hct MCH MCHC Plt Count Lymph % (Auto) [place] % (Auto) Lymph # [place] # Seg Neutrophils % Lymphocytes % (Manual) Seg Neutrophils # Seg Neutrophils # Man Lymphocytes # (Manual) Monocytes # (Manual) PT INR APTT POC ABG pH 7.268 L POC ABG pCO2 34.8 L POC ABG pO2 Sodium 146 H Potassium 5.1 H D Chloride 113.3 H Carbon Dioxide 18 L BUN 29 H Creatinine 2.0 H D Glucose 194 H POC Glucose Lactic Acid 2.10 H* Calcium 6.8 L Phosphorus Total Creatine Kinase CK-MB (CK-2) CK-MB (CK-2) Rel Index Troponin T C-Reactive Protein Serum Total Protein Albumin Avdjv-8-Uucqmmuni Gamma Globulins PEP Interpretation Triglycerides LDL Cholesterol Direct HDL Cholesterol Urine WBC (Auto) Urine Creatinine Complement C3 Complement C4 07/28/17 07/28/17 07/28/17 05:44 06:30 16:00 WBC 16.9 H RBC Hgb Hct MCH MCHC 31 L Plt Count Lymph % (Auto) 8.4 L [place] % (Auto) 7.5 H Lymph # [place] # 1.3 H Seg Neutrophils % 84.1 H Lymphocytes % (Manual) Seg Neutrophils # 14.2 H Seg Neutrophils # Man Lymphocytes # (Manual) Monocytes # (Manual) PT INR APTT POC ABG pH POC ABG pCO2 POC ABG pO2 Sodium 146 H Potassium Chloride Carbon Dioxide BUN Creatinine 2.4 H Glucose POC Glucose Lactic Acid Calcium Phosphorus Total Creatine Kinase 434 H CK-MB (CK-2) 10.8 H CK-MB (CK-2) Rel Index Troponin T 0.521 H* D C-Reactive Protein Serum Total Protein Albumin Pcann-7-Pnjkksbsd Gamma Globulins PEP Interpretation Triglycerides LDL Cholesterol Direct HDL Cholesterol Urine WBC (Auto) Urine Creatinine Complement C3 Complement C4 07/28/17 07/28/17 07/28/17 16:00 16:00 16:20 WBC RBC Hgb Hct MCH MCHC Plt Count Lymph % (Auto) [place] % (Auto) Lymph # [place] # Seg Neutrophils % Lymphocytes % (Manual) Seg Neutrophils # Seg Neutrophils # Man Lymphocytes # (Manual) Monocytes # (Manual) PT INR APTT POC ABG pH POC ABG pCO2 POC ABG pO2 Sodium Potassium Chloride Carbon Dioxide BUN Creatinine Glucose POC Glucose Lactic Acid Calcium Phosphorus Total Creatine Kinase CK-MB (CK-2) CK-MB (CK-2) Rel Index Troponin T C-Reactive Protein Serum Total Protein Albumin Tumiy-4-Kmunxenrf Gamma Globulins PEP Interpretation Triglycerides LDL Cholesterol Direct HDL Cholesterol Urine WBC (Auto) 12.0 H Urine Creatinine Complement C3 67 L Complement C4 14 L 07/28/17 07/29/17 07/29/17 16:20 04:02 05:00 WBC RBC Hgb Hct MCH MCHC Plt Count Lymph % (Auto) [place] % (Auto) Lymph # [place] # Seg Neutrophils % Lymphocytes % (Manual) Seg Neutrophils # Seg Neutrophils # Man Lymphocytes # (Manual) Monocytes # (Manual) PT INR APTT POC ABG pH 7.304 L POC ABG pCO2 31.6 L POC ABG pO2 Sodium Potassium Chloride 111.7 H Carbon Dioxide 18 L BUN 37 H Creatinine 2.1 H Glucose 213 H POC Glucose Lactic Acid Calcium 6.9 L Phosphorus Total Creatine Kinase CK-MB (CK-2) CK-MB (CK-2) Rel Index Troponin T C-Reactive Protein Serum Total Protein Albumin Sqgkf-1-Sewgijhah Gamma Globulins PEP Interpretation Triglycerides LDL Cholesterol Direct HDL Cholesterol Urine WBC (Auto) Urine Creatinine 58.4 H Complement C3 Complement C4 07/29/17 07/29/17 07/30/17 Unknown Unknown 04:07 WBC 14.4 H RBC Hgb Hct MCH MCHC Plt Count 125 L Lymph % (Auto) [place] % (Auto) Lymph # [place] # Seg Neutrophils % Lymphocytes % (Manual) Seg Neutrophils # Seg Neutrophils # Man Lymphocytes # (Manual) Monocytes # (Manual) PT INR APTT POC ABG pH 7.319 L POC ABG pCO2 27.8 L POC ABG pO2 121 H Sodium Potassium Chloride Carbon Dioxide BUN Creatinine Glucose POC Glucose Lactic Acid Calcium Phosphorus Total Creatine Kinase CK-MB (CK-2) CK-MB (CK-2) Rel Index Troponin T C-Reactive Protein Serum Total Protein 4.9 L Albumin 2.9 L Kxtzo-8-Atycqrykt 0.4 H Gamma Globulins 0.5 L PEP Interpretation see below H Triglycerides LDL Cholesterol Direct HDL Cholesterol Urine WBC (Auto) Urine Creatinine Complement C3 Complement C4 07/30/17 07/30/17 07/30/17 12:43 17:22 23:27 WBC RBC Hgb Hct MCH MCHC Plt Count Lymph % (Auto) [place] % (Auto) Lymph # [place] # Seg Neutrophils % Lymphocytes % (Manual) Seg Neutrophils # Seg Neutrophils # Man Lymphocytes # (Manual) Monocytes # (Manual) PT INR APTT POC ABG pH POC ABG pCO2 POC ABG pO2 Sodium Potassium Chloride Carbon Dioxide BUN Creatinine Glucose POC Glucose 134 H 117 H 173 H Lactic Acid Calcium Phosphorus Total Creatine Kinase CK-MB (CK-2) CK-MB (CK-2) Rel Index Troponin T C-Reactive Protein Serum Total Protein Albumin Ecskc-4-Boxcvbwst Gamma Globulins PEP Interpretation Triglycerides LDL Cholesterol Direct HDL Cholesterol Urine WBC (Auto) Urine Creatinine Complement C3 Complement C4 07/30/17 07/30/17 07/31/17 Unknown Unknown 04:13 WBC 15.6 H RBC Hgb Hct MCH MCHC Plt Count 117 L Lymph % (Auto) [place] % (Auto) Lymph # [place] # Seg Neutrophils % Lymphocytes % (Manual) Seg Neutrophils # Seg Neutrophils # Man Lymphocytes # (Manual) Monocytes # (Manual) PT INR APTT POC ABG pH POC ABG pCO2 26.8 L POC ABG pO2 74 L Sodium 146 H Potassium Chloride 113.8 H Carbon Dioxide 18 L BUN 36 H Creatinine 1.8 H Glucose 177 H POC Glucose Lactic Acid Calcium 6.9 L Phosphorus Total Creatine Kinase CK-MB (CK-2) CK-MB (CK-2) Rel Index Troponin T C-Reactive Protein Serum Total Protein Albumin Ehvzs-3-Fbzwubmnf Gamma Globulins PEP Interpretation Triglycerides LDL Cholesterol Direct HDL Cholesterol Urine WBC (Auto) Urine Creatinine Complement C3 Complement C4 07/31/17 07/31/17 07/31/17 05:00 05:00 05:01 WBC 18.5 H RBC Hgb Hct MCH MCHC Plt Count 135 L Lymph % (Auto) [place] % (Auto) Lymph # [place] # Seg Neutrophils % Lymphocytes % (Manual) Seg Neutrophils # Seg Neutrophils # Man Lymphocytes # (Manual) Monocytes # (Manual) PT INR APTT POC ABG pH POC ABG pCO2 POC ABG pO2 Sodium 148 H Potassium Chloride 112.8 H Carbon Dioxide 20 L BUN 33 H Creatinine 1.6 H Glucose 188 H POC Glucose 219 H Lactic Acid Calcium 7.1 L Phosphorus Total Creatine Kinase CK-MB (CK-2) CK-MB (CK-2) Rel Index Troponin T C-Reactive Protein Serum Total Protein Albumin Kaaxz-5-Vlehaxxak Gamma Globulins PEP Interpretation Triglycerides LDL Cholesterol Direct HDL Cholesterol Urine WBC (Auto) Urine Creatinine Complement C3 Complement C4 07/31/17 07/31/17 08/01/17 14:36 17:57 00:02 WBC RBC Hgb Hct MCH MCHC Plt Count Lymph % (Auto) [place] % (Auto) Lymph # [place] # Seg Neutrophils % Lymphocytes % (Manual) Seg Neutrophils # Seg Neutrophils # Man Lymphocytes # (Manual) Monocytes # (Manual) PT INR APTT POC ABG pH POC ABG pCO2 POC ABG pO2 Sodium Potassium Chloride Carbon Dioxide BUN Creatinine Glucose POC Glucose 199 H 216 H 131 H Lactic Acid Calcium Phosphorus Total Creatine Kinase CK-MB (CK-2) CK-MB (CK-2) Rel Index Troponin T C-Reactive Protein Serum Total Protein Albumin Gimpr-5-Cxmpholrf Gamma Globulins PEP Interpretation Triglycerides LDL Cholesterol Direct HDL Cholesterol Urine WBC (Auto) Urine Creatinine Complement C3 Complement C4 08/01/17 08/01/17 08/01/17 03:22 04:10 04:10 WBC 19.3 H RBC Hgb Hct MCH MCHC Plt Count 129 L Lymph % (Auto) [place] % (Auto) Lymph # [place] # Seg Neutrophils % Lymphocytes % (Manual) Seg Neutrophils # Seg Neutrophils # Man Lymphocytes # (Manual) Monocytes # (Manual) PT INR APTT POC ABG pH 7.481 H POC ABG pCO2 29.6 L POC ABG pO2 65 L Sodium 148 H Potassium Chloride 113.2 H Carbon Dioxide 21 L BUN 29 H Creatinine Glucose 173 H POC Glucose Lactic Acid Calcium 7.3 L Phosphorus Total Creatine Kinase CK-MB (CK-2) CK-MB (CK-2) Rel Index Troponin T C-Reactive Protein Serum Total Protein Albumin Tcimx-4-Xnfuyyhnu Gamma Globulins PEP Interpretation Triglycerides LDL Cholesterol Direct HDL Cholesterol Urine WBC (Auto) Urine Creatinine Complement C3 Complement C4 08/01/17 08/01/17 08/01/17 05:18 11:55 18:13 WBC RBC Hgb Hct MCH MCHC Plt Count Lymph % (Auto) [place] % (Auto) Lymph # [place] # Seg Neutrophils % Lymphocytes % (Manual) Seg Neutrophils # Seg Neutrophils # Man Lymphocytes # (Manual) Monocytes # (Manual) PT INR APTT POC ABG pH POC ABG pCO2 POC ABG pO2 Sodium Potassium Chloride Carbon Dioxide BUN Creatinine Glucose POC Glucose 179 H 174 H 189 H Lactic Acid Calcium Phosphorus Total Creatine Kinase CK-MB (CK-2) CK-MB (CK-2) Rel Index Troponin T C-Reactive Protein Serum Total Protein Albumin Wmfnc-9-Dqgdafswd Gamma Globulins PEP Interpretation Triglycerides LDL Cholesterol Direct HDL Cholesterol Urine WBC (Auto) Urine Creatinine Complement C3 Complement C4 08/01/17 08/01/17 08/02/17 19:42 22:01 00:01 WBC RBC Hgb Hct MCH MCHC Plt Count Lymph % (Auto) [place] % (Auto) Lymph # [place] # Seg Neutrophils % Lymphocytes % (Manual) Seg Neutrophils # Seg Neutrophils # Man Lymphocytes # (Manual) Monocytes # (Manual) PT INR APTT POC ABG pH POC ABG pCO2 POC ABG pO2 Sodium Potassium Chloride Carbon Dioxide BUN Creatinine Glucose POC Glucose 165 H 129 H Lactic Acid Calcium Phosphorus Total Creatine Kinase CK-MB (CK-2) CK-MB (CK-2) Rel Index Troponin T C-Reactive Protein 4.00 H Serum Total Protein Albumin Lxynh-1-Zakhtgzyc Gamma Globulins PEP Interpretation Triglycerides LDL Cholesterol Direct HDL Cholesterol Urine WBC (Auto) Urine Creatinine Complement C3 Complement C4 08/02/17 08/02/17 08/02/17 03:40 04:10 06:00 WBC RBC Hgb Hct MCH MCHC Plt Count Lymph % (Auto) [place] % (Auto) Lymph # [place] # Seg Neutrophils % Lymphocytes % (Manual) Seg Neutrophils # Seg Neutrophils # Man Lymphocytes # (Manual) Monocytes # (Manual) PT INR APTT POC ABG pH 7.474 H POC ABG pCO2 33.8 L POC ABG pO2 73 L Sodium 148 H Potassium Chloride 109.3 H Carbon Dioxide BUN 31 H Creatinine Glucose 168 H POC Glucose 172 H Lactic Acid Calcium 6.8 L Phosphorus Total Creatine Kinase CK-MB (CK-2) CK-MB (CK-2) Rel Index Troponin T C-Reactive Protein Serum Total Protein Albumin Fjbgh-0-Ccxuehwut Gamma Globulins PEP Interpretation Triglycerides LDL Cholesterol Direct HDL Cholesterol Urine WBC (Auto) Urine Creatinine Complement C3 Complement C4 08/02/17 08/02/17 08/02/17 07:09 11:25 17:46 WBC 20.1 H RBC Hgb 11.7 L Hct MCH MCHC Plt Count 127 L Lymph % (Auto) [place] % (Auto) Lymph # [place] # Seg Neutrophils % Lymphocytes % (Manual) Seg Neutrophils # Seg Neutrophils # Man Lymphocytes # (Manual) Monocytes # (Manual) PT INR APTT POC ABG pH POC ABG pCO2 POC ABG pO2 Sodium Potassium Chloride Carbon Dioxide BUN Creatinine Glucose POC Glucose 159 H 171 H Lactic Acid Calcium Phosphorus Total Creatine Kinase CK-MB (CK-2) CK-MB (CK-2) Rel Index Troponin T C-Reactive Protein Serum Total Protein Albumin Becqf-5-Nrsgmqery Gamma Globulins PEP Interpretation Triglycerides LDL Cholesterol Direct HDL Cholesterol Urine WBC (Auto) Urine Creatinine Complement C3 Complement C4 08/02/17 08/03/17 08/03/17 22:30 00:05 03:29 WBC RBC Hgb Hct MCH MCHC Plt Count Lymph % (Auto) [place] % (Auto) Lymph # [place] # Seg Neutrophils % Lymphocytes % (Manual) Seg Neutrophils # Seg Neutrophils # Man Lymphocytes # (Manual) Monocytes # (Manual) PT INR APTT POC ABG pH POC ABG pCO2 POC ABG pO2 Sodium 148 H Potassium Chloride 109.1 H Carbon Dioxide BUN 32 H Creatinine Glucose 179 H POC Glucose 179 H 199 H Lactic Acid Calcium 6.9 L Phosphorus Total Creatine Kinase CK-MB (CK-2) CK-MB (CK-2) Rel Index Troponin T C-Reactive Protein Serum Total Protein Albumin Zgybg-5-Ozcezvbxt Gamma Globulins PEP Interpretation Triglycerides LDL Cholesterol Direct HDL Cholesterol Urine WBC (Auto) Urine Creatinine Complement C3 Complement C4 08/03/17 08/03/17 08/03/17 03:29 05:40 06:01 WBC 19.9 H RBC Hgb Hct MCH MCHC Plt Count 130 L Lymph % (Auto) 7.0 L [place] % (Auto) 11.1 H Lymph # [place] # 2.2 H Seg Neutrophils % 81.4 H Lymphocytes % (Manual) Seg Neutrophils # 16.2 H Seg Neutrophils # Man Lymphocytes # (Manual) Monocytes # (Manual) PT INR APTT POC ABG pH 7.468 H POC ABG pCO2 POC ABG pO2 70 L Sodium Potassium Chloride Carbon Dioxide BUN Creatinine Glucose POC Glucose 179 H Lactic Acid Calcium Phosphorus Total Creatine Kinase CK-MB (CK-2) CK-MB (CK-2) Rel Index Troponin T C-Reactive Protein Serum Total Protein Albumin Qmxpu-3-Deddhrwbh Gamma Globulins PEP Interpretation Triglycerides LDL Cholesterol Direct HDL Cholesterol Urine WBC (Auto) Urine Creatinine Complement C3 Complement C4 08/03/17 08/03/17 08/04/17 11:43 17:34 00:02 WBC RBC Hgb Hct MCH MCHC Plt Count Lymph % (Auto) [place] % (Auto) Lymph # [place] # Seg Neutrophils % Lymphocytes % (Manual) Seg Neutrophils # Seg Neutrophils # Man Lymphocytes # (Manual) Monocytes # (Manual) PT INR APTT POC ABG pH POC ABG pCO2 POC ABG pO2 Sodium Potassium Chloride Carbon Dioxide BUN Creatinine Glucose POC Glucose 166 H 193 H 191 H Lactic Acid Calcium Phosphorus Total Creatine Kinase CK-MB (CK-2) CK-MB (CK-2) Rel Index Troponin T C-Reactive Protein Serum Total Protein Albumin Czwln-3-Tveetvnle Gamma Globulins PEP Interpretation Triglycerides LDL Cholesterol Direct HDL Cholesterol Urine WBC (Auto) Urine Creatinine Complement C3 Complement C4 08/04/17 08/04/17 08/04/17 05:18 05:44 05:44 WBC 16.8 H RBC Hgb 11.7 L Hct MCH 27 L MCHC Plt Count Lymph % (Auto) 5.0 L [place] % (Auto) 9.5 H Lymph # 0.8 L [place] # 1.6 H Seg Neutrophils % 84.7 H Lymphocytes % (Manual) Seg Neutrophils # 14.2 H Seg Neutrophils # Man Lymphocytes # (Manual) Monocytes # (Manual) PT INR APTT POC ABG pH POC ABG pCO2 POC ABG pO2 Sodium 148 H Potassium Chloride 108.1 H Carbon Dioxide BUN 31 H Creatinine Glucose 181 H POC Glucose 173 H Lactic Acid Calcium 7.6 L Phosphorus Total Creatine Kinase CK-MB (CK-2) CK-MB (CK-2) Rel Index Troponin T C-Reactive Protein Serum Total Protein Albumin Xzhdu-9-Nvcjzocwd Gamma Globulins PEP Interpretation Triglycerides LDL Cholesterol Direct HDL Cholesterol Urine WBC (Auto) Urine Creatinine Complement C3 Complement C4 08/04/17 08/04/17 08/04/17 10:58 12:34 17:35 WBC RBC Hgb Hct MCH MCHC Plt Count Lymph % (Auto) [place] % (Auto) Lymph # [place] # Seg Neutrophils % Lymphocytes % (Manual) Seg Neutrophils # Seg Neutrophils # Man Lymphocytes # (Manual) Monocytes # (Manual) PT INR APTT POC ABG pH 7.490 H POC ABG pCO2 POC ABG pO2 71 L Sodium Potassium Chloride Carbon Dioxide BUN Creatinine Glucose POC Glucose 191 H 188 H Lactic Acid Calcium Phosphorus Total Creatine Kinase CK-MB (CK-2) CK-MB (CK-2) Rel Index Troponin T C-Reactive Protein Serum Total Protein Albumin Tawre-0-Hunkknjrg Gamma Globulins PEP Interpretation Triglycerides LDL Cholesterol Direct HDL Cholesterol Urine WBC (Auto) Urine Creatinine Complement C3 Complement C4 08/05/17 08/05/17 08/05/17 00:00 05:32 07:34 WBC 14.4 H RBC Hgb 10.6 L Hct 32.3 L MCH MCHC Plt Count Lymph % (Auto) 6.7 L [place] % (Auto) 8.6 H Lymph # 1.0 L [place] # 1.2 H Seg Neutrophils % 81.8 H Lymphocytes % (Manual) Seg Neutrophils # 11.8 H Seg Neutrophils # Man Lymphocytes # (Manual) Monocytes # (Manual) PT INR APTT POC ABG pH POC ABG pCO2 POC ABG pO2 Sodium Potassium Chloride Carbon Dioxide BUN Creatinine Glucose POC Glucose 216 H 240 H Lactic Acid Calcium Phosphorus Total Creatine Kinase CK-MB (CK-2) CK-MB (CK-2) Rel Index Troponin T C-Reactive Protein Serum Total Protein Albumin Qhjdp-7-Llblmiftz Gamma Globulins PEP Interpretation Triglycerides LDL Cholesterol Direct HDL Cholesterol Urine WBC (Auto) Urine Creatinine Complement C3 Complement C4 08/05/17 08/05/17 08/05/17 07:34 12:36 17:51 WBC RBC Hgb Hct MCH MCHC Plt Count Lymph % (Auto) [place] % (Auto) Lymph # [place] # Seg Neutrophils % Lymphocytes % (Manual) Seg Neutrophils # Seg Neutrophils # Man Lymphocytes # (Manual) Monocytes # (Manual) PT INR APTT POC ABG pH POC ABG pCO2 POC ABG pO2 Sodium 148 H Potassium Chloride 107.7 H Carbon Dioxide BUN 32 H Creatinine Glucose 241 H POC Glucose 206 H 190 H Lactic Acid Calcium 7.6 L Phosphorus 1.90 L Total Creatine Kinase CK-MB (CK-2) CK-MB (CK-2) Rel Index Troponin T C-Reactive Protein Serum Total Protein Albumin Sczeu-9-Fgpwefxat Gamma Globulins PEP Interpretation Triglycerides LDL Cholesterol Direct HDL Cholesterol Urine WBC (Auto) Urine Creatinine Complement C3 Complement C4 08/05/17 08/06/17 08/06/17 22:11 00:35 04:34 WBC 16.2 H RBC Hgb 11.6 L Hct MCH MCHC Plt Count Lymph % (Auto) 5.8 L [place] % (Auto) 9.3 H Lymph # 0.9 L [place] # 1.5 H Seg Neutrophils % 83.5 H Lymphocytes % (Manual) Seg Neutrophils # 13.5 H Seg Neutrophils # Man Lymphocytes # (Manual) Monocytes # (Manual) PT INR APTT POC ABG pH POC ABG pCO2 POC ABG pO2 Sodium Potassium Chloride Carbon Dioxide BUN Creatinine Glucose POC Glucose 169 H 191 H Lactic Acid Calcium Phosphorus Total Creatine Kinase CK-MB (CK-2) CK-MB (CK-2) Rel Index Troponin T C-Reactive Protein Serum Total Protein Albumin Xtasg-6-Mcqhsgddv Gamma Globulins PEP Interpretation Triglycerides LDL Cholesterol Direct HDL Cholesterol Urine WBC (Auto) Urine Creatinine Complement C3 Complement C4 08/06/17 08/06/17 08/06/17 04:34 05:44 11:45 WBC RBC Hgb Hct MCH MCHC Plt Count Lymph % (Auto) [place] % (Auto) Lymph # [place] # Seg Neutrophils % Lymphocytes % (Manual) Seg Neutrophils # Seg Neutrophils # Man Lymphocytes # (Manual) Monocytes # (Manual) PT INR APTT POC ABG pH POC ABG pCO2 POC ABG pO2 Sodium Potassium Chloride Carbon Dioxide BUN 30 H Creatinine Glucose 241 H POC Glucose 223 H 239 H Lactic Acid Calcium 8.0 L Phosphorus Total Creatine Kinase CK-MB (CK-2) CK-MB (CK-2) Rel Index Troponin T C-Reactive Protein Serum Total Protein Albumin Wdswy-7-Ofrwgbfzl Gamma Globulins PEP Interpretation Triglycerides LDL Cholesterol Direct HDL Cholesterol Urine WBC (Auto) Urine Creatinine Complement C3 Complement C4 08/06/17 08/06/17 08/07/17 17:55 23:43 05:24 WBC 13.5 H RBC 3.58 L Hgb 10.4 L Hct 31.4 L MCH MCHC Plt Count Lymph % (Auto) 5.8 L [place] % (Auto) 8.7 H Lymph # 0.8 L [place] # 1.2 H Seg Neutrophils % 83.2 H Lymphocytes % (Manual) Seg Neutrophils # 11.2 H Seg Neutrophils # Man Lymphocytes # (Manual) Monocytes # (Manual) PT INR APTT POC ABG pH POC ABG pCO2 POC ABG pO2 Sodium Potassium Chloride Carbon Dioxide BUN Creatinine Glucose POC Glucose 227 H 243 H Lactic Acid Calcium Phosphorus Total Creatine Kinase CK-MB (CK-2) CK-MB (CK-2) Rel Index Troponin T C-Reactive Protein Serum Total Protein Albumin Mwkpf-4-Rlhkvztrm Gamma Globulins PEP Interpretation Triglycerides LDL Cholesterol Direct HDL Cholesterol Urine WBC (Auto) Urine Creatinine Complement C3 Complement C4 08/07/17 08/07/17 08/07/17 05:24 05:38 18:16 WBC RBC Hgb Hct MCH MCHC Plt Count Lymph % (Auto) [place] % (Auto) Lymph # [place] # Seg Neutrophils % Lymphocytes % (Manual) Seg Neutrophils # Seg Neutrophils # Man Lymphocytes # (Manual) Monocytes # (Manual) PT INR APTT POC ABG pH POC ABG pCO2 POC ABG pO2 Sodium Potassium Chloride Carbon Dioxide BUN 28 H Creatinine Glucose 184 H POC Glucose 192 H 189 H Lactic Acid Calcium 7.8 L Phosphorus Total Creatine Kinase CK-MB (CK-2) CK-MB (CK-2) Rel Index Troponin T C-Reactive Protein Serum Total Protein Albumin Avepu-7-Nvymfvpyg Gamma Globulins PEP Interpretation Triglycerides LDL Cholesterol Direct HDL Cholesterol Urine WBC (Auto) Urine Creatinine Complement C3 Complement C4 08/08/17 08/08/1718 00:03 06:23 06:33 WBC 14.8 H RBC Hgb 11.0 L Hct 33.7 L MCH MCHC Plt Count Lymph % (Auto) 7.6 L [place] % (Auto) 9.9 H Lymph # 1.1 L [place] # 1.5 H Seg Neutrophils % 80.4 H Lymphocytes % (Manual) Seg Neutrophils # 11.9 H Seg Neutrophils # Man Lymphocytes # (Manual) Monocytes # (Manual) PT INR APTT POC ABG pH POC ABG pCO2 POC ABG pO2 Sodium Potassium Chloride Carbon Dioxide BUN Creatinine Glucose POC Glucose 205 H 173 H Lactic Acid Calcium Phosphorus Total Creatine Kinase CK-MB (CK-2) CK-MB (CK-2) Rel Index Troponin T C-Reactive Protein Serum Total Protein Albumin Cjbbp-2-Qrsynhotl Gamma Globulins PEP Interpretation Triglycerides LDL Cholesterol Direct HDL Cholesterol Urine WBC (Auto) Urine Creatinine Complement C3 Complement C4 08/08/17 08/08/17 08/08/17 06:33 11:32 17:58 WBC RBC Hgb Hct MCH MCHC Plt Count Lymph % (Auto) [place] % (Auto) Lymph # [place] # Seg Neutrophils % Lymphocytes % (Manual) Seg Neutrophils # Seg Neutrophils # Man Lymphocytes # (Manual) Monocytes # (Manual) PT INR APTT POC ABG pH POC ABG pCO2 POC ABG pO2 Sodium Potassium Chloride Carbon Dioxide BUN 29 H Creatinine Glucose 195 H POC Glucose 188 H 215 H Lactic Acid Calcium 8.2 L Phosphorus Total Creatine Kinase CK-MB (CK-2) CK-MB (CK-2) Rel Index Troponin T C-Reactive Protein Serum Total Protein Albumin Rzeny-1-Drvorgfim Gamma Globulins PEP Interpretation Triglycerides LDL Cholesterol Direct HDL Cholesterol Urine WBC (Auto) Urine Creatinine Complement C3 Complement C4 08/09/17 08/09/17 08/09/17 00:16 05:07 12:05 WBC RBC Hgb Hct MCH MCHC Plt Count Lymph % (Auto) [place] % (Auto) Lymph # [place] # Seg Neutrophils % Lymphocytes % (Manual) Seg Neutrophils # Seg Neutrophils # Man Lymphocytes # (Manual) Monocytes # (Manual) PT INR APTT POC ABG pH POC ABG pCO2 POC ABG pO2 Sodium Potassium Chloride Carbon Dioxide BUN Creatinine Glucose POC Glucose 193 H 231 H Lactic Acid Calcium Phosphorus Total Creatine Kinase CK-MB (CK-2) CK-MB (CK-2) Rel Index Troponin T C-Reactive Protein Serum Total Protein Albumin Mjfuu-6-Hgabkbwde Gamma Globulins PEP Interpretation Triglycerides LDL Cholesterol Direct HDL Cholesterol Urine WBC (Auto) 167.0 H Urine Creatinine Complement C3 Complement C4 08/09/17 08/09/17 08/09/17 12:10 13:58 14:56 WBC 15.3 H RBC Hgb 10.8 L Hct 33.0 L MCH MCHC Plt Count Lymph % (Auto) [place] % (Auto) Lymph # [place] # Seg Neutrophils % Lymphocytes % (Manual) Seg Neutrophils # Seg Neutrophils # Man Lymphocytes # (Manual) Monocytes # (Manual) PT INR APTT POC ABG pH POC ABG pCO2 POC ABG pO2 Sodium 136 L Potassium Chloride 97.6 L Carbon Dioxide BUN 27 H Creatinine Glucose 165 H POC Glucose 221 H Lactic Acid Calcium 8.2 L Phosphorus Total Creatine Kinase CK-MB (CK-2) CK-MB (CK-2) Rel Index Troponin T C-Reactive Protein Serum Total Protein Albumin Oalrs-8-Zggxryyts Gamma Globulins PEP Interpretation Triglycerides LDL Cholesterol Direct HDL Cholesterol Urine WBC (Auto) Urine Creatinine Complement C3 Complement C4 08/09/17 08/10/17 08/10/17 23:39 03:32 03:32 WBC 12.3 H RBC Hgb 10.8 L Hct 32.5 L MCH MCHC Plt Count Lymph % (Auto) 10.2 L [place] % (Auto) 13.0 H Lymph # [place] # 1.6 H Seg Neutrophils % 75.4 H Lymphocytes % (Manual) Seg Neutrophils # 9.3 H Seg Neutrophils # Man Lymphocytes # (Manual) Monocytes # (Manual) PT INR APTT POC ABG pH POC ABG pCO2 POC ABG pO2 Sodium 136 L Potassium Chloride 97.5 L Carbon Dioxide BUN 30 H Creatinine Glucose 144 H POC Glucose 177 H Lactic Acid Calcium 8.2 L Phosphorus Total Creatine Kinase CK-MB (CK-2) CK-MB (CK-2) Rel Index Troponin T C-Reactive Protein Serum Total Protein Albumin Xksra-9-Hjlqloelr Gamma Globulins PEP Interpretation Triglycerides LDL Cholesterol Direct HDL Cholesterol Urine WBC (Auto) Urine Creatinine Complement C3 Complement C4 08/10/17 05:13 WBC RBC Hgb Hct MCH MCHC Plt Count Lymph % (Auto) [place] % (Auto) Lymph # [place] # Seg Neutrophils % Lymphocytes % (Manual) Seg Neutrophils # Seg Neutrophils # Man Lymphocytes # (Manual) Monocytes # (Manual) PT INR APTT POC ABG pH POC ABG pCO2 POC ABG pO2 Sodium Potassium Chloride Carbon Dioxide BUN Creatinine Glucose POC Glucose 135 H Lactic Acid Calcium Phosphorus Total Creatine Kinase CK-MB (CK-2) CK-MB (CK-2) Rel Index Troponin T C-Reactive Protein Serum Total Protein Albumin Wjyrx-7-Hzmskeuvv Gamma Globulins PEP Interpretation Triglycerides LDL Cholesterol Direct HDL Cholesterol Urine WBC (Auto) Urine Creatinine Complement C3 Complement C4
--- NOTE | 2017-08-10 11:30 | Progress Note ---
Assessment and Plan Assessment: 1) S/P prolonged cardiac arrest with presumed sepsis with initial septic vs cardiogenic shock: still fever and leukocytosis better. Etiology ? pneumonia ? central fever 2) Presumed aspiration versus CAP pneumonia: -CT chest showed patchy airspace disease with left sided trace pleural effusion. 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 Plan: -monitor off antibiotics Prognosis guarded Thank you Dr Blanchard for your consultation, will follow up with you. Kathie Magdaleno MD Infectious Diseases Specialist [facility] ([facility] M [phone] O [phone] Subjective Date of service: 08/10/17 Principal diagnosis: cardiac arrest at home. Intubated and unresponcsive Interval history: Remains on the vent intubated, fio2 80% p5, no fever. Underwent trach and PEG placement. Current Antimicrobials: none Previous Antimicrobials: Vancomycin 07/31-08/02 Zosyn 07/31 vanco 08/04 Microbiology: Blood cultures: 07/27 ngtd Respiratory cultures: 07/27 normal resp niko 08/01 +MRSA Urine cultures: 07/28 neg 2 neg Influenza: neg Objective - Exam Narrative Exam: General appearance: sedated on the vent Eyes: anicteric sclerae, moist conjunctivae; no lid-lag; PERRLA HENT: Atraumatic; oropharynx +ETT + NGT Neck: +trach with bloody secretion Lungs: loud marcin rhonchi CV: RRR Abdomen: Soft, non-tender +PEG with mild bleeding around Extremities: No peripheral edema or extremity lymphadenopathy Skin: Normal temperature, turgor and texture; no rash, ulcers or subcutaneous nodules Psych: sedated Neuro: sedated Lines: femoral line - Constitutional Vitals: Vital Signs Temp Pulse Resp BP Pulse Ox 99.1 F 56 L 13 142/78 100 08/10/17 09:17 08/10/17 11:01 08/10/17 11:01 08/10/17 11:01 08/10/17 11:01 Temperature -Last 24 Hours Temperature 99.1 F Temperature 99.1 F Temperature 99.5 F Temperature 98.4 F Temperature 98.9 F Temperature 98.8 F Temperature 98.5 F Temperature 98.5 F Temperature 98.7 F - Labs CBC & Chem 7: 08/10/17 03:32 08/10/17 03:32 Labs: Abnormal lab results 08/09/17 08/09/17 08/09/17 Range/Units 12:05 12:10 13:58 WBC (4.5-11.0) K/mm3 Hgb (11.8-15.2) gm/dl Hct (35.5-45.6) % Lymph % (Auto) (13.4-35.0) % [place] % (Auto) (0.0-7.3) % [place] # (0.0-0.8) K/mm3 Seg Neutrophils % (40.0-70.0) % Seg Neutrophils # (1.8-7.7) K/mm3 Sodium 136 L (137-145) mmol/L Chloride 97.6 L (98-107) mmol/L BUN 27 H (9-20) mg/dL Glucose 165 H (75-100) mg/dL POC Glucose 221 H (70-105) Calcium 8.2 L (8.4-10.2) mg/dL Urine WBC (Auto) 167.0 H (0.0-6.0) /HPF 08/09/17 08/09/17 08/10/17 Range/Units 14:56 23:39 03:32 WBC 15.3 H 12.3 H (4.5-11.0) K/mm3 Hgb 10.8 L 10.8 L (11.8-15.2) gm/dl Hct 33.0 L 32.5 L (35.5-45.6) % Lymph % (Auto) 10.2 L (13.4-35.0) % [place] % (Auto) 13.0 H (0.0-7.3) % [place] # 1.6 H (0.0-0.8) K/mm3 Seg Neutrophils % 75.4 H (40.0-70.0) % Seg Neutrophils # 9.3 H (1.8-7.7) K/mm3 Sodium (137-145) mmol/L Chloride (98-107) mmol/L BUN (9-20) mg/dL Glucose (75-100) mg/dL POC Glucose 177 H (70-105) Calcium (8.4-10.2) mg/dL Urine WBC (Auto) (0.0-6.0) /HPF 08/10/17 08/10/17 Range/Units 03:32 05:13 WBC (4.5-11.0) K/mm3 Hgb (11.8-15.2) gm/dl Hct (35.5-45.6) % Lymph % (Auto) (13.4-35.0) % [place] % (Auto) (0.0-7.3) % [place] # (0.0-0.8) K/mm3 Seg Neutrophils % (40.0-70.0) % Seg Neutrophils # (1.8-7.7) K/mm3 Sodium 136 L (137-145) mmol/L Chloride 97.5 L (98-107) mmol/L BUN 30 H (9-20) mg/dL Glucose 144 H (75-100) mg/dL POC Glucose 135 H (70-105) Calcium 8.2 L (8.4-10.2) mg/dL Urine WBC (Auto) (0.0-6.0) /HPF
--- NOTE | 2017-08-10 14:46 | Operative Report ---
PREOPERATIVE DIAGNOSES: Respiratory failure and anoxic brain injury. POSTOPERATIVE DIAGNOSES: Respiratory failure and anoxic brain injury. PROCEDURES: Percutaneous endoscopic gastrostomy tube placement and percutaneous tracheostomy. ATTENDING: Marcelo Martinez MD SHOT PACKER: Aprly Pathak MD ESTIMATED BLOOD LOSS: Minimal. SPECIMENS: None. COMPLICATIONS: None. INDICATION FOR PROCEDURE: The patient is a 71-year-old male patient, who sustained a cardiorespiratory arrest, which led to anoxic brain injury. For this reason, the patient has been unable to be extubated and thus requires a tracheostomy. He is also unable to feed himself for which reason a percutaneous gastrostomy tube was also indicated. The patient's immediate family members were made well aware of all the possible complications of the procedure as well as all the risks associated with the procedure and agreed to have the procedure done after informed consent had been given. The consent form was filled out with the patient and witnessed by the nurse. PROCEDURE IN DETAIL: The patient was laid in his ICU bed and the abdomen was prepped and draped as per the usual sterile fashion. At this point, a timeout was taken to verify the correct patient and the correct procedure. Following this, a gastroscope was passed through the patient's mouth, esophagus, and into the stomach. There appeared to be no abnormalities in the stomach lining. We then proceeded to transilluminate across the anterior abdominal wall and after adequate transillumination a needle with a guidewire was then passed through the anterior abdominal wall and through the anterior wall of the stomach. This guidewire was then grasped with the snare through the gastroscope. This was passed out through the patient's mouth and a PEG tube was then lassoed at the guidewire. The guidewire was then pulled carrying along with it the gastrostomy tube through the anterior abdominal wall into the anterior wall of the stomach, thus creating a gastrostomy tube. This was done all under direct visualization. Pictures were taken. The tube was settled at the 3 cm bruna at the skin. Once this had been completed, we proceeded to secure the tube through the anterior abdominal wall using Tegaderm and this part of the procedure was then terminated. We then turned our attention to the neck, which was prepped and draped as per the usual sterile fashion. Once prepping and draping were done, we proceeded by making a small incision over where the trachea was palpated. This was carried down through the skin and subcutaneous tissue down to the trachea with the help of hemostats. Once at the trachea, the rings were encountered using tactile identification and at the second or at the third tracheal ring, a large bore needle was inserted followed by a guidewire, followed by a tracheal dilator. Once the dilator had been in place, we then proceeded to use the Blue Rhino device to create a larger tracheal defect. This Blue Rhino was then followed by a tracheostomy tube. Once the tracheostomy was in place, the guidewire and dilators were removed, and a capnometer was applied and adequate placement was verified by adequate capnometer color change. Once this had been done, the surgical ____ was then connected to the tracheostomy tube and numbers were verified, good tidal volumes and good O2 saturations. At this point, after verifying correct placement, the tracheostomy was then sutured in place. An endotracheal collar was placed. Please note that prior to inserting the needle into the trachea, we then asked anesthesia to withdraw the endotracheal tube up to ____. The patient tolerated the procedure well and was left in the ICU. JOB# [id number] BOOKER/NORIS
--- NOTE | 2017-08-10 15:53 | Progress Note ---
Assessment and Plan Assessment and plan: 71 year old man with history of CAD, CHF was brought to the emergency room after he had a cardiac arrest at home. He had a cough productive of yellow phlegm, fever 3 days. EMS was called, CPR was continued for another 40 minutes prior to arrival in the emergency room, he had a V. fib or V. tach rhythm for which he was shocked per EMS. CPR was continued in the emergency room, he was hypotensive and placed on levophed and vasopressin. Remains unresponsive. Neurologist evaaluated him EEG no active seizure. Showed slow waves Cardio-resp arrest at home. - Patient is comatose, on amiodarone - Patient is briefly Coded on 08/09/2017 due to malfunction of the ET tube Persistent vegetative state - Was evaluated by surgeon for PEG and trach placement Shock. Cardiogenic +/- septic shock. V fib sp shock off vasopressor, BP is stable. -Apparently, patient declined ICD 30 days ago Hematuria - Likely due to UTI vs prostatitis cancer - We will monitor, if no improvement will consult urology - On antibiotics for UTI Acute hypoxic Respiratory failure on MV >96 hours -continue vent management Ischemic cardiomyopathy, LVEF 15-20% - CAD s/p CABG 2006 at [place] - ONEILL to LAD; COREY to RI; SVG to PLOM; SVG to RV branch and PDA branch Non-specific troponin - Not consistent with ACS Acute kidney Injury due to acute tubular necrosis - Resolved CAD s/p CABG. 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 - Anoxic encephalopathy. EEG showed no active seizure, slow waves - Dr. Brown following Hypernatremia - Resolved Leukocytosis: From presumed aspiration pneumonia versus community acquired pneumonia. Blood cultures no growth to date. Continue Zosyn/ vanco ID following Pneumonia/Septic shock: left lobar, likely aspiration Blood culture so far are neg. continue abx -influenza neg, legionella neg, Strep pneumoniae neg -crp=4 -repeat resp cx 08/01 +MRSA (likely a colonizer) Hyperglycemia: Monitor blood sugars with sliding scale coverage for now - Full code status - Prophylaxis with Lovenox, GI with Pepcid. The high probability of a clinically significant, sudden or life threatening deterioration of the [cv, neuro, renal, pulmonary] system(s) required my full and direct attention, intervention and personal management. The aggregate critical care time was [32] minutes. This time is in addition to time spent performing reported procedures but includes the following: [x] Data Review and interpretation [x] Patient assessment and monitoring of vital signs [x] Documentation [x] Medication orders and management History Interval history: Patient was seen and evaluated this morning, patient is non communicative. patient is on PEG and trach. Hospitalist Physical - Physical exam Narrative exam: Patient is on PEG and trach. The patient appeared well nourished and normally developed. Vital signs as documented. Head exam is unremarkable. No scleral icterus . Neck is without jugular venous distension, thyromegaly, or carotid bruits. Lungs are clear to auscultation. Cardiac exam reveals regular rate and Rhythm. First and second heart sounds normal. No murmurs, rubs or gallops. Abdominal exam reveals normal bowel sounds, no masses, no organomegaly and no aortic enlargement. Extremities are nonedematous and both femoral and pedal pulses are normal. blood in the catheter. [place]: Comatose. - Constitutional Vitals: Temp Pulse Resp BP Pulse Ox 99.8 F H 64 15 150/85 100 08/10/17 12:00 08/10/17 12:01 08/10/17 12:01 08/10/17 12:01 08/10/17 12:01 General appearance: Present: no acute distress, well-nourished (intubated and vent supported), other Results - Labs CBC & Chem 7: 08/10/17 03:32 08/10/17 03:32 Labs: Laboratory Last Values WBC 12.3 K/mm3 (4.5-11.0) H 08/10/17 03:32 RBC 3.72 M/mm3 (3.65-5.03) 08/10/17 03:32 Hgb 10.8 gm/dl (11.8-15.2) L 08/10/17 03:32 Hct 32.5 % (35.5-45.6) L 08/10/17 03:32 MCV 87 fl (84-94) 08/10/17 03:32 MCH 29 pg (28-32) 08/10/17 03:32 MCHC 33 % (32-34) 08/10/17 03:32 RDW 14.1 % (13.2-15.2) 08/10/17 03:32 Plt Count 243 K/mm3 (140-440) 08/10/17 03:32 Lymph % (Auto) 10.2 % (13.4-35.0) L 08/10/17 03:32 [place] % (Auto) 13.0 % (0.0-7.3) H 08/10/17 03:32 Eos % (Auto) 1.1 % (0.0-4.3) 08/10/17 03:32 Baso % (Auto) 0.3 % (0.0-1.8) 08/10/17 03:32 Lymph # 1.3 K/mm3 (1.2-5.4) 08/10/17 03:32 [place] # 1.6 K/mm3 (0.0-0.8) H 08/10/17 03:32 Eos # 0.1 K/mm3 (0.0-0.4) 08/10/17 03:32 Baso # 0.0 K/mm3 (0.0-0.1) 08/10/17 03:32 Add Manual Diff Complete 07/27/17 18:26 Total Counted 100 07/27/17 18:26 Seg Neutrophils % 75.4 % (40.0-70.0) H 08/10/17 03:32 Seg Neuts % (Manual) 57.0 % (40.0-70.0) 07/27/17 18:26 Band Neutrophils % 0 % 07/27/17 18:26 Lymphocytes % (Manual) 36.0 % (13.4-35.0) H 07/27/17 18:26 Reactive Lymphs % (Man) 0 % 07/27/17 18:26 Monocytes % (Manual) 7.0 % (0.0-7.3) 07/27/17 18:26 Eosinophils % (Manual) 0 % (0.0-4.3) 07/27/17 18:26 Basophils % (Manual) 0 % (0.0-1.8) 07/27/17 18:26 Metamyelocytes % 0 % 07/27/17 18:26 Myelocytes % 0 % 07/27/17 18:26 Promyelocytes % 0 % 07/27/17 18:26 Blast Cells % 0 % 07/27/17 18:26 Nucleated RBC % Not Reportable 07/27/17 18:26 Seg Neutrophils # 9.3 K/mm3 (1.8-7.7) H 08/10/17 03:32 Seg Neutrophils # Man 8.9 K/mm3 (1.8-7.7) H 07/27/17 18:26 Band Neutrophils # 0.0 K/mm3 07/27/17 18:26 Lymphocytes # (Manual) 5.6 K/mm3 (1.2-5.4) H 07/27/17 18:26 Abs React Lymphs (Man) 0.0 K/mm3 07/27/17 18:26 Monocytes # (Manual) 1.1 K/mm3 (0.0-0.8) H 07/27/17 18:26 Eosinophils # (Manual) 0.0 K/mm3 (0.0-0.4) 07/27/17 18:26 Basophils # (Manual) 0.0 K/mm3 (0.0-0.1) 07/27/17 18:26 Metamyelocytes # 0.0 K/mm3 07/27/17 18:26 Myelocytes # 0.0 K/mm3 07/27/17 18:26 Promyelocytes # 0.0 K/mm3 07/27/17 18:26 Blast Cells # 0.0 K/mm3 07/27/17 18:26 WBC Morphology Not Reportable 07/27/17 18:26 Hypersegmented Neuts Not Reportable 07/27/17 18:26 Hyposegmented Neuts Not Reportable 07/27/17 18:26 Hypogranular Neuts Not Reportable 07/27/17 18:26 Smudge Cells Not Reportable 07/27/17 18:26 Toxic Granulation Not Reportable 07/27/17 18:26 Toxic Vacuolation Not Reportable 07/27/17 18:26 Dohle Bodies Not Reportable 07/27/17 18:26 Pelger-Huet Anomaly Not Reportable 07/27/17 18:26 [place] Rods Not Reportable 07/27/17 18:26 Platelet Estimate Consistent w auto 07/27/17 18:26 Clumped Platelets Not Reportable 07/27/17 18:26 Plt Clumps, EDTA Not Reportable 07/27/17 18:26 Large Platelets Not Reportable 07/27/17 18:26 Giant Platelets Not Reportable 07/27/17 18:26 Platelet Satelliting Not Reportable 07/27/17 18:26 Plt Morphology Comment Not Reportable 07/27/17 18:26 RBC Morphology Not Reportable 07/27/17 18:26 Dimorphic RBCs Not Reportable 07/27/17 18:26 Polychromasia Not Reportable 07/27/17 18:26 Hypochromasia Not Reportable 07/27/17 18:26 Poikilocytosis Not Reportable 07/27/17 18:26 Anisocytosis Rare 07/27/17 18:26 Microcytosis Not Reportable 07/27/17 18:26 Macrocytosis Not Reportable 07/27/17 18:26 Spherocytes Not Reportable 07/27/17 18:26 Pappenheimer Bodies Not Reportable 07/27/17 18:26 Sickle Cells Not Reportable 07/27/17 18:26 Target Cells Not Reportable 07/27/17 18:26 Tear Drop Cells Not Reportable 07/27/17 18:26 Ovalocytes Not Reportable 07/27/17 18:26 Helmet Cells Not Reportable 07/27/17 18:26 [place] Bodies Not Reportable 07/27/17 18:26 Bath Rings Not Reportable 07/27/17 18:26 Chili Cells Not Reportable 07/27/17 18:26 Bite Cells Not Reportable 07/27/17 18:26 Crenated Cell Not Reportable 07/27/17 18:26 Elliptocytes Not Reportable 07/27/17 18:26 Acanthocytes (Spur) Not Reportable 07/27/17 18:26 Rouleaux Not Reportable 07/27/17 18:26 Hemoglobin C Crystals Not Reportable 07/27/17 18:26 Schistocytes Not Reportable 07/27/17 18:26 Malaria parasites Not Reportable 07/27/17 18:26 Mina Bodies Not Reportable 07/27/17 18:26 Hem Pathologist Commnt No 07/27/17 18:26 PT 14.5 Sec. (12.2-14.9) 08/10/17 03:32 INR 1.07 (0.87-1.13) 08/10/17 03:32 APTT 31.7 Sec. (24.2-36.6) 08/10/17 03:32 POC ABG pH 7.490 (7.35-7.45) H 08/04/17 10:58 POC ABG pCO2 39.0 (35-45) 08/04/17 10:58 POC ABG pO2 71 (80-105) L 08/04/17 10:58 POC ABG HCO3 29.7 08/04/17 10:58 POC ABG Total CO2 31 08/04/17 10:58 POC ABG O2 Sat 95 08/04/17 10:58 POC ABG Base Excess 6 08/04/17 10:58 FiO2 25 % 08/04/17 10:58 Sodium 136 mmol/L (137-145) L 08/10/17 03:32 Potassium 4.4 mmol/L (3.6-5.0) 08/10/17 03:32 Chloride 97.5 mmol/L (98-107) L 08/10/17 03:32 Carbon Dioxide 26 mmol/L (22-30) 08/10/17 03:32 Anion Gap 17 mmol/L 08/10/17 03:32 BUN 30 mg/dL (9-20) H 08/10/17 03:32 Creatinine 1.0 mg/dL (0.8-1.5) 08/10/17 03:32 Estimated GFR > 60 ml/min 08/10/17 03:32 BUN/Creatinine Ratio 30 % 08/10/17 03:32 Glucose 144 mg/dL (75-100) H 08/10/17 03:32 POC Glucose 135 (70-105) H 08/10/17 05:13 Lactic Acid 1.80 mmol/L (0.7-2.0) 08/03/17 03:29 Calcium 8.2 mg/dL (8.4-10.2) L 08/10/17 03:32 Phosphorus 3.30 mg/dL (2.5-4.5) 08/09/17 13:58 Magnesium 1.90 mg/dL (1.7-2.3) 08/09/17 13:58 Total Creatine Kinase 434 units/L (55-170) H 07/28/17 05:44 CK-MB (CK-2) 10.8 ng/mL (0.0-4.0) H 07/28/17 05:44 CK-MB (CK-2) Rel Index 2.4 (0-4) 07/28/17 05:44 Troponin T 0.521 ng/mL (0.00-0.029) H* D 07/28/17 05:44 C-Reactive Protein 4.00 mg/dL (0.00-1.30) H 08/01/17 19:42 Serum Total Protein 4.9 g/dL (6.1-8.1) L 07/29/17 Unknown Albumin 2.9 g/dL (3.8-4.8) L 07/29/17 Unknown Dijed-7-Yicejdjye 0.4 g/dL (0.2-0.3) H 07/29/17 Unknown Orbpy-5-Sjqjsebgf 0.6 g/dL (0.5-0.9) 07/29/17 Unknown Beta Globulins 0.2 g/dL (0.2-0.5) 07/29/17 Unknown Gamma Globulins 0.5 g/dL (0.8-1.7) L 07/29/17 Unknown Abnorm Protein Band 1 see below 07/29/17 Unknown PEP Interpretation see below H 07/29/17 Unknown Triglycerides 190 mg/dL (2-149) H 07/27/17 18:26 Cholesterol 93 mg/dL (50-199) 07/27/17 18:26 LDL Cholesterol Direct 34 mg/dL (50-130) L 07/27/17 18:26 HDL Cholesterol 21 mg/dL (40-59) L 07/27/17 18:26 Cholesterol/HDL Ratio 4.42 % 07/27/17 18:26 Urine Color Red (Yellow) 08/09/17 12:05 Urine Turbidity Clear (Clear) 08/09/17 12:05 Urine pH 7.0 (5.0-7.0) 08/09/17 12:05 Ur Specific Watson 1.009 (1.003-1.030) 08/09/17 12:05 Urine Protein 100 mg/dl mg/dL (Negative) 08/09/17 12:05 Urine Glucose (UA) 50 mg/dL (Negative) 08/09/17 12:05 Urine Ketones Neg mg/dL (Negative) 08/09/17 12:05 Urine Blood Lg (Negative) 08/09/17 12:05 Urine Nitrite Neg (Negative) 08/09/17 12:05 Ur Reducing Substances Not Reportable 07/27/17 22:46 Urine Bilirubin Neg (Negative) 08/09/17 12:05 Urine Ictotest Not Reportable 07/27/17 22:46 Urine Urobilinogen 4.0 mg/dL (<2.0) 08/09/17 12:05 Ur Leukocyte Esterase Sm (Negative) 08/09/17 12:05 Urine WBC (Auto) 167.0 /HPF (0.0-6.0) H 08/09/17 12:05 Urine RBC (Auto) > 182.0 /HPF (0.0-6.0) 08/09/17 12:05 U Epithel Cells (Auto) 1.0 /HPF (0-13.0) 08/09/17 12:05 Urine Bacteria (Auto) 1+ /HPF (Negative) 07/27/17 22:46 Amorphous Crystals Few 07/28/17 16:20 Urine Mucus Few /HPF 08/01/17 19:45 Urine Yeast (Budding) Few /HPF 07/28/17 16:20 Urine Eosinophils None seen (None Seen) 07/28/17 16:20 Urine Creatinine 58.4 mg/dL (0.1-20.0) H 07/28/17 16:20 Urine Sodium 94 mmol/L 07/28/17 16:20 Fraction Sodium Excret 2.6 07/28/17 16:20 Vancomycin Trough 7.1 ug/mL (5.0-20.0) 08/07/17 14:18 Urine Opiates Screen Presumptive negative 07/27/17 22:46 Urine Methadone Screen Presumptive negative 07/27/17 22:46 Ur Barbiturates Screen Presumptive negative 07/27/17 22:46 Ur Phencyclidine Scrn Presumptive negative 07/27/17 22:46 Ur Amphetamines Screen Presumptive negative 07/27/17 22:46 U Benzodiazepines Scrn Presumptive negative 07/27/17 22:46 Urine Cocaine Screen Presumptive negative 07/27/17 22:46 U Marijuana (THC) Screen Presumptive negative 07/27/17 22:46 Drugs of Abuse Note Disclamer 07/27/17 22:46 Proteinase 3 (PR3) Ab <1.0 AI (<1.0) 07/28/17 16:00 Myeloperoxidase Ab <1.0 AI (<1.0) 07/28/17 16:00 Double Strand DNA Ab <1 IU/mL (<=4) 07/28/17 16:00 Complement C3 67 mg/dL (90-180) L 07/28/17 16:00 Complement C4 14 mg/dL (16-47) L 07/28/17 16:00 Hepatitis A IgM Ab Non-reactive (NonReactive) 07/28/17 16:00 Hep Bs Antigen Non-reactive (Negative) 07/28/17 16:00 Hep B Core IgM Ab Non-reactive (NonReactive) 07/28/17 16:00 Hepatitis C Antibody Non-reactive (NonReactive) 07/28/17 16:00 Urine Legionella Ag Not detected (Not Detected) 08/01/17 19:45 Miscellaneous Test Flexitest 1 08/01/17 19:45 Blood Type A POSITIVE 08/10/17 03:32 Antibody Screen Negative 08/10/17 03:32
[2017-08-10] MEDS: PEPCID IV SCH ×2 (16:55→22:36)
[2017-08-10] MEDS: LOVENOX SUB-Q SCH (22:37)
[2017-08-11] MEDS: PEPCID IV SCH ×2 (10:00→22:06)
[2017-08-11] MEDS: CORDARONE PO SCH ×2 (10:00→22:06)
[2017-08-11] MEDS: BABY ASPIRIN FEEDTUBE SCH (10:00)
[2017-08-11] MEDS: ZESTRIL PO SCH (10:00)
[2017-08-11] MEDS: COREG PO SCH ×2 (10:00→22:05)
--- NOTE | 2017-08-11 10:17 | Progress Note ---
Assessment and Plan Out of the hospital Cardiac arrest manifested by ventricular fibrillation 40 minutes of ACLS before ROSC Family member reports patient declined ICD 30 days ago on oral amiodarone Anoxic encephalopathy Ischemic cardiomyopathy, LVEF 15-20% CAD s/p CABG 2005 at [place] ONEILL to LAD; COREY to RI; SVG to PLOM; SVG to RV branch and PDA branch Non-specific troponin Acute renal failure LLL pneumonia Supportive cardiac management. Subjective Date of service: 08/11/17 Principal diagnosis: cardiac arrest at home. Intubated and unresponcsive Interval history: Remains unresponsive on the vent. Objective Vital Signs Temp Pulse Pulse Pulse Pulse Pulse Pulse 08/11/17 09:43 08/11/17 09:28 63 08/11/17 08:00 98.6 F 62 08/11/17 07:00 64 08/11/17 06:01 64 08/11/17 05:00 62 08/11/17 04:00 99.6 F 62 63 08/11/17 03:28 64 08/11/17 03:00 63 08/11/17 02:00 64 08/11/17 01:00 64 08/11/17 00:00 100.1 F H 59 L 65 65 65 65 08/10/17 23:27 08/10/17 23:25 63 08/10/17 23:00 63 08/10/17 22:59 63 08/10/17 22:39 63 08/10/17 22:00 62 08/10/17 21:00 63 08/10/17 20:01 70 08/10/17 20:00 99.7 F H 62 62 62 62 62 08/10/17 19:35 65 08/10/17 19:00 66 08/10/17 18:00 64 08/10/17 17:40 58 L 08/10/17 17:00 61 08/10/17 16:00 99.6 F 63 08/10/17 15:00 66 08/10/17 14:00 64 08/10/17 13:50 64 08/10/17 13:00 57 L 08/10/17 12:01 64 08/10/17 12:00 99.8 F H 08/10/17 11:01 56 L Resp BP Pulse Ox Pulse Ox 08/11/17 09:43 96 01/04/18 09:28 136/83 98 01/04/18 08:00 16 116/70 98 08/11/17 07:00 16 132/78 96 08/11/17 06:01 9 L 138/76 98 08/11/17 05:00 16 118/69 97 08/11/17 04:00 11 L 122/72 97 08/11/17 03:28 131/81 98 08/11/17 03:00 16 131/81 97 08/11/17 02:00 16 132/81 98 08/11/17 01:00 16 120/73 96 08/11/17 00:00 16 134/76 96 08/10/17 23:27 98 08/10/17 23:25 138/78 98 08/10/17 23:00 16 138/79 98 08/10/17 22:59 16 138/79 99 08/10/17 22:39 138/79 08/10/17 22:00 16 138/83 96 08/10/17 21:00 16 127/79 97 08/10/17 20:01 12 146/92 100 08/10/17 20:00 98 08/10/17 19:35 140/82 98 08/10/17 19:00 16 137/81 99 08/10/17 18:00 16 139/81 98 08/10/17 17:40 139/81 97 08/10/17 17:00 16 142/81 99 08/10/17 16:00 15 145/83 100 08/10/17 15:00 17 149/90 99 08/10/17 14:00 16 144/87 100 08/10/17 13:50 139/81 98 08/10/17 13:00 7 L 146/80 99 08/10/17 12:01 15 150/85 100 08/10/17 12:00 99 08/10/17 11:01 13 142/78 100 - Physical Examination General: Other (Unresponsive, ventilated to trach) Cardiac: Positive: Reg Rate and Rhythm - Imaging and Cardiology EKG: image reviewed
--- NOTE | 2017-08-11 10:35 | Progress Note ---
Assessment and Plan Assessment: 1) S/P prolonged cardiac arrest with presumed sepsis with initial septic vs cardiogenic shock: had a low grade fever. Etiology ? pneumonia ? central fever 2) Presumed aspiration versus CAP pneumonia: -CT chest showed patchy airspace disease with left sided trace pleural effusion. 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 Plan: -monitor off antibiotics I am signing off Thank you Dr Blanchard for your consultation, will follow up with you. Kathie Magdaleno MD Infectious Diseases Specialist [facility] [phone] O [phone] Subjective Date of service: 08/11/17 Principal diagnosis: cardiac arrest at home. Intubated and unresponcsive Interval history: Remains on the vent via trach no fever. Current Antimicrobials: none Previous Antimicrobials: Vancomycin 07/31-08/02 Zosyn 07/31 vanco 08/04 Microbiology: Blood cultures: 07/27 neg Respiratory cultures: 07/27 normal resp niko 08/01 +MRSA Urine cultures: 07/28 neg 1/2 neg Influenza: neg Objective - Exam Narrative Exam: General appearance: sedated on the vent Eyes: anicteric sclerae, moist conjunctivae; no lid-lag; PERRLA HENT: Atraumatic; oropharynx +ETT + NGT Neck: +trach with bloody secretion Lungs: loud marcin rhonchi CV: RRR Abdomen: Soft, non-tender +PEG with mild bleeding around Extremities: No peripheral edema or extremity lymphadenopathy Skin: Normal temperature, turgor and texture; no rash, ulcers or subcutaneous nodules Psych: sedated Neuro: sedated Lines: femoral line - Constitutional Vitals: Vital Signs Temp Pulse Resp BP Pulse Ox 98.6 F 63 16 136/83 96 08/11/17 08:00 08/11/17 09:28 08/11/17 08:00 08/11/17 09:28 08/11/17 09:43 Temperature -Last 24 Hours Temperature 98.6 F Temperature 99.6 F Temperature 100.1 F Temperature 99.7 F Temperature 99.6 F Temperature 99.8 F - Labs CBC & Chem 7: 08/10/17 03:32 08/10/17 03:32 Labs: Abnormal lab results 08/09/17 08/10/17 08/10/17 Range/Units 17:30 12:06 18:06 POC Glucose 186 H 145 H 114 H (70-105) 08/10/17 08/11/17 Range/Units 21:10 05:28 POC Glucose 119 H 108 H (70-105)
--- NOTE | 2017-08-11 11:58 | Progress Note ---
Assessment and Plan 71 y/o male with out of hospital cardiac arrest (Vfib/Vtach), with acute renal failure, and metabolic acidosis and now anoxic encephalopathy, not on sedation. 1. Attempt PSV trials with patient as tolerated. 2. Continue to monitor off sedations. Patient has not been on sedation since transfer to the ICU 14 days ago. 3. Per rounds, LTACH was approached with and currently referals are being made. Clinically stable for transfer when ready. 4. Reviewed ID note and agree with their current assessment and plan in regards to current clinical findings. CCT 31 minutes. Subjective Date of service: 08/11/17 Principal diagnosis: cardiac arrest at home. Intubated and unresponcsive Interval history: Trached and pegged on yesterday. Tolerated well with no acute issues. Nursing asking when safe to use peg and restart feeds. mental status is the same, unresponsive. Objective Vital Signs - 12hr 08/11/17 08/11/17 08/11/17 00:00 01:00 02:00 Temperature 100.1 F H Pulse Rate 59 L 64 64 Pulse Rate [ 65 Apical] Pulse Rate [ 65 From Monitor] Pulse Rate [ 65 Left Dorsalis Pedis] Pulse Rate [ 65 Right Dorsalis Pedis] Respiratory 16 16 16 Rate Blood Pressure 134/76 120/73 132/81 O2 Sat by Pulse 96 96 98 Oximetry O2 Sat by Pulse Oximetry [ Assessment] 08/11/17 08/11/17 08/11/17 03:00 03:28 04:00 Temperature 99.6 F Pulse Rate 63 64 62 Pulse Rate [ Apical] Pulse Rate [ From Monitor] Pulse Rate [ Left Dorsalis Pedis] Pulse Rate [ 63 Right Dorsalis Pedis] Respiratory 16 11 L Rate Blood Pressure 131/81 131/81 122/72 O2 Sat by Pulse 97 98 97 Oximetry O2 Sat by Pulse Oximetry [ Assessment] 08/11/17 08/11/17 08/11/17 05:00 06:01 07:00 Temperature Pulse Rate 62 64 64 Pulse Rate [ Apical] Pulse Rate [ From Monitor] Pulse Rate [ Left Dorsalis Pedis] Pulse Rate [ Right Dorsalis Pedis] Respiratory 16 9 L 16 Rate Blood Pressure 118/69 138/76 132/78 O2 Sat by Pulse 97 98 96 Oximetry O2 Sat by Pulse Oximetry [ Assessment] 08/11/17 08/11/17 08/11/17 08:00 09:00 09:28 Temperature 98.6 F Pulse Rate 62 62 63 Pulse Rate [ Apical] Pulse Rate [ From Monitor] Pulse Rate [ Left Dorsalis Pedis] Pulse Rate [ Right Dorsalis Pedis] Respiratory 16 15 Rate Blood Pressure 116/70 136/83 136/83 O2 Sat by Pulse 98 97 98 Oximetry O2 Sat by Pulse Oximetry [ Assessment] 08/11/17 08/11/17 08/11/17 09:43 10:01 11:01 Temperature Pulse Rate 63 65 Pulse Rate [ Apical] Pulse Rate [ From Monitor] Pulse Rate [ Left Dorsalis Pedis] Pulse Rate [ Right Dorsalis Pedis] Respiratory 17 20 Rate Blood Pressure 140/77 134/81 O2 Sat by Pulse 96 98 Oximetry O2 Sat by Pulse 96 Oximetry [ Assessment] Constitutional: comatose (eyes open only when stimulated, not following commands , flaccid extremities), other (full vent support currently) Eyes: non-icteric ENT: oropharynx moist Neck: supple, no JVD Effort: normal Ascultation: Bilateral: clear, diminished breath sounds Percussion: Bilateral: not dull Cardiovascular: regular rate and rhythm Gastrointestinal: normoactive bowel sounds, soft, non-tender, non-distended Integumentary: normal Extremities: no cyanosis, no edema, pink and warm Neurologic: other (see above) Psychiatric: other (unable to assess) CBC and BMP: 08/10/17 03:32 08/10/17 03:32 ABG, PT/INR, D-dimer: ABG POC ABG pH 7.490 (7.35-7.45) H 08/04/17 10:58 POC ABG pCO2 39.0 (35-45) 08/04/17 10:58 POC ABG pO2 71 (80-105) L 08/04/17 10:58 POC ABG HCO3 29.7 08/04/17 10:58 POC ABG Total CO2 31 08/04/17 10:58 POC ABG O2 Sat 95 08/04/17 10:58 PT/INR, D-dimer PT 14.5 Sec. (12.2-14.9) 08/10/17 03:32 INR 1.07 (0.87-1.13) 08/10/17 03:32 Abnormal lab findings: Abnormal Labs 07/27/17 07/27/17 07/27/17 18:26 18:26 18:26 WBC 15.6 H RBC Hgb Hct MCH MCHC Plt Count 115 L Lymph % (Auto) [place] % (Auto) Lymph # [place] # Seg Neutrophils % Lymphocytes % (Manual) 36.0 H Seg Neutrophils # Seg Neutrophils # Man 8.9 H Lymphocytes # (Manual) 5.6 H Monocytes # (Manual) 1.1 H PT 15.6 H INR 1.18 H APTT 38.5 H POC ABG pH POC ABG pCO2 POC ABG pO2 Sodium Potassium Chloride Carbon Dioxide 21 L BUN Creatinine Glucose 252 H POC Glucose Lactic Acid Calcium 7.7 L Phosphorus Total Creatine Kinase CK-MB (CK-2) CK-MB (CK-2) Rel Index Troponin T 0.090 H C-Reactive Protein Serum Total Protein Albumin Vherq-9-Pqygjtykt Gamma Globulins PEP Interpretation Triglycerides 190 H LDL Cholesterol Direct 34 L HDL Cholesterol 21 L Urine WBC (Auto) Urine Creatinine Complement C3 Complement C4 07/27/17 07/27/17 07/27/17 19:02 19:25 21:43 WBC RBC Hgb Hct MCH MCHC Plt Count Lymph % (Auto) [place] % (Auto) Lymph # [place] # Seg Neutrophils % Lymphocytes % (Manual) Seg Neutrophils # Seg Neutrophils # Man Lymphocytes # (Manual) Monocytes # (Manual) PT INR APTT POC ABG pH 7.155 L POC ABG pCO2 47.7 H POC ABG pO2 229 H Sodium Potassium Chloride Carbon Dioxide BUN Creatinine Glucose POC Glucose Lactic Acid 6.00 H* Calcium Phosphorus Total Creatine Kinase CK-MB (CK-2) 4.8 H CK-MB (CK-2) Rel Index Troponin T 0.149 H* D C-Reactive Protein Serum Total Protein Albumin Kdwnt-0-Ssoztnblp Gamma Globulins PEP Interpretation Triglycerides LDL Cholesterol Direct HDL Cholesterol Urine WBC (Auto) Urine Creatinine Complement C3 Complement C4 07/27/17 07/27/17 07/28/17 22:47 22:47 01:47 WBC RBC Hgb Hct MCH MCHC Plt Count Lymph % (Auto) [place] % (Auto) Lymph # [place] # Seg Neutrophils % Lymphocytes % (Manual) Seg Neutrophils # Seg Neutrophils # Man Lymphocytes # (Manual) Monocytes # (Manual) PT INR APTT POC ABG pH POC ABG pCO2 POC ABG pO2 Sodium Potassium Chloride Carbon Dioxide BUN Creatinine Glucose POC Glucose 199 H Lactic Acid 2.40 H* Calcium Phosphorus Total Creatine Kinase 222 H CK-MB (CK-2) 9.4 H CK-MB (CK-2) Rel Index 4.2 H Troponin T 0.852 H* D C-Reactive Protein Serum Total Protein Albumin Tcbat-6-Mxvfnvdct Gamma Globulins PEP Interpretation Triglycerides LDL Cholesterol Direct HDL Cholesterol Urine WBC (Auto) Urine Creatinine Complement C3 Complement C4 07/28/17 07/28/17 07/28/17 05:29 05:44 05:44 WBC RBC Hgb Hct MCH MCHC Plt Count Lymph % (Auto) [place] % (Auto) Lymph # [place] # Seg Neutrophils % Lymphocytes % (Manual) Seg Neutrophils # Seg Neutrophils # Man Lymphocytes # (Manual) Monocytes # (Manual) PT INR APTT POC ABG pH 7.268 L POC ABG pCO2 34.8 L POC ABG pO2 Sodium 146 H Potassium 5.1 H D Chloride 113.3 H Carbon Dioxide 18 L BUN 29 H Creatinine 2.0 H D Glucose 194 H POC Glucose Lactic Acid 2.10 H* Calcium 6.8 L Phosphorus Total Creatine Kinase CK-MB (CK-2) CK-MB (CK-2) Rel Index Troponin T C-Reactive Protein Serum Total Protein Albumin Tpggs-2-Tbokpahvi Gamma Globulins PEP Interpretation Triglycerides LDL Cholesterol Direct HDL Cholesterol Urine WBC (Auto) Urine Creatinine Complement C3 Complement C4 07/28/17 07/28/17 07/28/17 05:44 06:30 16:00 WBC 16.9 H RBC Hgb Hct MCH MCHC 31 L Plt Count Lymph % (Auto) 8.4 L [place] % (Auto) 7.5 H Lymph # [place] # 1.3 H Seg Neutrophils % 84.1 H Lymphocytes % (Manual) Seg Neutrophils # 14.2 H Seg Neutrophils # Man Lymphocytes # (Manual) Monocytes # (Manual) PT INR APTT POC ABG pH POC ABG pCO2 POC ABG pO2 Sodium 146 H Potassium Chloride Carbon Dioxide BUN Creatinine 2.4 H Glucose POC Glucose Lactic Acid Calcium Phosphorus Total Creatine Kinase 434 H CK-MB (CK-2) 10.8 H CK-MB (CK-2) Rel Index Troponin T 0.521 H* D C-Reactive Protein Serum Total Protein Albumin Uyken-7-Galbxkxni Gamma Globulins PEP Interpretation Triglycerides LDL Cholesterol Direct HDL Cholesterol Urine WBC (Auto) Urine Creatinine Complement C3 Complement C4 07/28/17 07/28/1717 16:00 16:00 16:20 WBC RBC Hgb Hct MCH MCHC Plt Count Lymph % (Auto) [place] % (Auto) Lymph # [place] # Seg Neutrophils % Lymphocytes % (Manual) Seg Neutrophils # Seg Neutrophils # Man Lymphocytes # (Manual) Monocytes # (Manual) PT INR APTT POC ABG pH POC ABG pCO2 POC ABG pO2 Sodium Potassium Chloride Carbon Dioxide BUN Creatinine Glucose POC Glucose Lactic Acid Calcium Phosphorus Total Creatine Kinase CK-MB (CK-2) CK-MB (CK-2) Rel Index Troponin T C-Reactive Protein Serum Total Protein Albumin Klpdd-7-Hfuwgegmm Gamma Globulins PEP Interpretation Triglycerides LDL Cholesterol Direct HDL Cholesterol Urine WBC (Auto) 12.0 H Urine Creatinine Complement C3 67 L Complement C4 14 L 07/28/17 07/29/17 07/29/17 16:20 04:02 05:00 WBC RBC Hgb Hct MCH MCHC Plt Count Lymph % (Auto) [place] % (Auto) Lymph # [place] # Seg Neutrophils % Lymphocytes % (Manual) Seg Neutrophils # Seg Neutrophils # Man Lymphocytes # (Manual) Monocytes # (Manual) PT INR APTT POC ABG pH 7.304 L POC ABG pCO2 31.6 L POC ABG pO2 Sodium Potassium Chloride 111.7 H Carbon Dioxide 18 L BUN 37 H Creatinine 2.1 H Glucose 213 H POC Glucose Lactic Acid Calcium 6.9 L Phosphorus Total Creatine Kinase CK-MB (CK-2) CK-MB (CK-2) Rel Index Troponin T C-Reactive Protein Serum Total Protein Albumin Euwiw-0-Hkbnyvlja Gamma Globulins PEP Interpretation Triglycerides LDL Cholesterol Direct HDL Cholesterol Urine WBC (Auto) Urine Creatinine 58.4 H Complement C3 Complement C4 07/29/17 07/29/17 07/30/17 Unknown Unknown 04:07 WBC 14.4 H RBC Hgb Hct MCH MCHC Plt Count 125 L Lymph % (Auto) [place] % (Auto) Lymph # [place] # Seg Neutrophils % Lymphocytes % (Manual) Seg Neutrophils # Seg Neutrophils # Man Lymphocytes # (Manual) Monocytes # (Manual) PT INR APTT POC ABG pH 7.319 L POC ABG pCO2 27.8 L POC ABG pO2 121 H Sodium Potassium Chloride Carbon Dioxide BUN Creatinine Glucose POC Glucose Lactic Acid Calcium Phosphorus Total Creatine Kinase CK-MB (CK-2) CK-MB (CK-2) Rel Index Troponin T C-Reactive Protein Serum Total Protein 4.9 L Albumin 2.9 L Gmuim-4-Eplmfrixo 0.4 H Gamma Globulins 0.5 L PEP Interpretation see below H Triglycerides LDL Cholesterol Direct HDL Cholesterol Urine WBC (Auto) Urine Creatinine Complement C3 Complement C4 07/30/17 07/30/17 07/30/17 12:43 17:22 23:27 WBC RBC Hgb Hct MCH MCHC Plt Count Lymph % (Auto) [place] % (Auto) Lymph # [place] # Seg Neutrophils % Lymphocytes % (Manual) Seg Neutrophils # Seg Neutrophils # Man Lymphocytes # (Manual) Monocytes # (Manual) PT INR APTT POC ABG pH POC ABG pCO2 POC ABG pO2 Sodium Potassium Chloride Carbon Dioxide BUN Creatinine Glucose POC Glucose 134 H 117 H 173 H Lactic Acid Calcium Phosphorus Total Creatine Kinase CK-MB (CK-2) CK-MB (CK-2) Rel Index Troponin T C-Reactive Protein Serum Total Protein Albumin Tmyks-1-Zbzesnuyt Gamma Globulins PEP Interpretation Triglycerides LDL Cholesterol Direct HDL Cholesterol Urine WBC (Auto) Urine Creatinine Complement C3 Complement C4 07/30/17 07/30/17 07/31/17 Unknown Unknown 04:13 WBC 15.6 H RBC Hgb Hct MCH MCHC Plt Count 117 L Lymph % (Auto) [place] % (Auto) Lymph # [place] # Seg Neutrophils % Lymphocytes % (Manual) Seg Neutrophils # Seg Neutrophils # Man Lymphocytes # (Manual) Monocytes # (Manual) PT INR APTT POC ABG pH POC ABG pCO2 26.8 L POC ABG pO2 74 L Sodium 146 H Potassium Chloride 113.8 H Carbon Dioxide 18 L BUN 36 H Creatinine 1.8 H Glucose 177 H POC Glucose Lactic Acid Calcium 6.9 L Phosphorus Total Creatine Kinase CK-MB (CK-2) CK-MB (CK-2) Rel Index Troponin T C-Reactive Protein Serum Total Protein Albumin Gmdyo-3-Wuojdqqfh Gamma Globulins PEP Interpretation Triglycerides LDL Cholesterol Direct HDL Cholesterol Urine WBC (Auto) Urine Creatinine Complement C3 Complement C4 07/31/17 07/31/17 07/31/17 05:00 05:00 05:01 WBC 18.5 H RBC Hgb Hct MCH MCHC Plt Count 135 L Lymph % (Auto) [place] % (Auto) Lymph # [place] # Seg Neutrophils % Lymphocytes % (Manual) Seg Neutrophils # Seg Neutrophils # Man Lymphocytes # (Manual) Monocytes # (Manual) PT INR APTT POC ABG pH POC ABG pCO2 POC ABG pO2 Sodium 148 H Potassium Chloride 112.8 H Carbon Dioxide 20 L BUN 33 H Creatinine 1.6 H Glucose 188 H POC Glucose 219 H Lactic Acid Calcium 7.1 L Phosphorus Total Creatine Kinase CK-MB (CK-2) CK-MB (CK-2) Rel Index Troponin T C-Reactive Protein Serum Total Protein Albumin Jlpfs-4-Qwtohwaqk Gamma Globulins PEP Interpretation Triglycerides LDL Cholesterol Direct HDL Cholesterol Urine WBC (Auto) Urine Creatinine Complement C3 Complement C4 07/31/17 07/31/17 08/01/17 14:36 17:57 00:02 WBC RBC Hgb Hct MCH MCHC Plt Count Lymph % (Auto) [place] % (Auto) Lymph # [place] # Seg Neutrophils % Lymphocytes % (Manual) Seg Neutrophils # Seg Neutrophils # Man Lymphocytes # (Manual) Monocytes # (Manual) PT INR APTT POC ABG pH POC ABG pCO2 POC ABG pO2 Sodium Potassium Chloride Carbon Dioxide BUN Creatinine Glucose POC Glucose 199 H 216 H 131 H Lactic Acid Calcium Phosphorus Total Creatine Kinase CK-MB (CK-2) CK-MB (CK-2) Rel Index Troponin T C-Reactive Protein Serum Total Protein Albumin Qmlht-6-Ytsrziles Gamma Globulins PEP Interpretation Triglycerides LDL Cholesterol Direct HDL Cholesterol Urine WBC (Auto) Urine Creatinine Complement C3 Complement C4 08/01/17 08/01/17 08/01/17 03:22 04:10 04:10 WBC 19.3 H RBC Hgb Hct MCH MCHC Plt Count 129 L Lymph % (Auto) [place] % (Auto) Lymph # [place] # Seg Neutrophils % Lymphocytes % (Manual) Seg Neutrophils # Seg Neutrophils # Man Lymphocytes # (Manual) Monocytes # (Manual) PT INR APTT POC ABG pH 7.481 H POC ABG pCO2 29.6 L POC ABG pO2 65 L Sodium 148 H Potassium Chloride 113.2 H Carbon Dioxide 21 L BUN 29 H Creatinine Glucose 173 H POC Glucose Lactic Acid Calcium 7.3 L Phosphorus Total Creatine Kinase CK-MB (CK-2) CK-MB (CK-2) Rel Index Troponin T C-Reactive Protein Serum Total Protein Albumin Wijey-9-Agsspukpj Gamma Globulins PEP Interpretation Triglycerides LDL Cholesterol Direct HDL Cholesterol Urine WBC (Auto) Urine Creatinine Complement C3 Complement C4 08/01/17 08/01/17 08/01/17 05:18 11:55 18:13 WBC RBC Hgb Hct MCH MCHC Plt Count Lymph % (Auto) [place] % (Auto) Lymph # [place] # Seg Neutrophils % Lymphocytes % (Manual) Seg Neutrophils # Seg Neutrophils # Man Lymphocytes # (Manual) Monocytes # (Manual) PT INR APTT POC ABG pH POC ABG pCO2 POC ABG pO2 Sodium Potassium Chloride Carbon Dioxide BUN Creatinine Glucose POC Glucose 179 H 174 H 189 H Lactic Acid Calcium Phosphorus Total Creatine Kinase CK-MB (CK-2) CK-MB (CK-2) Rel Index Troponin T C-Reactive Protein Serum Total Protein Albumin Ywayb-7-Jcyggnbxq Gamma Globulins PEP Interpretation Triglycerides LDL Cholesterol Direct HDL Cholesterol Urine WBC (Auto) Urine Creatinine Complement C3 Complement C4 08/01/17 08/01/17 08/02/17 19:42 22:01 00:01 WBC RBC Hgb Hct MCH MCHC Plt Count Lymph % (Auto) [place] % (Auto) Lymph # [place] # Seg Neutrophils % Lymphocytes % (Manual) Seg Neutrophils # Seg Neutrophils # Man Lymphocytes # (Manual) Monocytes # (Manual) PT INR APTT POC ABG pH POC ABG pCO2 POC ABG pO2 Sodium Potassium Chloride Carbon Dioxide BUN Creatinine Glucose POC Glucose 165 H 129 H Lactic Acid Calcium Phosphorus Total Creatine Kinase CK-MB (CK-2) CK-MB (CK-2) Rel Index Troponin T C-Reactive Protein 4.00 H Serum Total Protein Albumin Kglds-0-Yxjytgjtw Gamma Globulins PEP Interpretation Triglycerides LDL Cholesterol Direct HDL Cholesterol Urine WBC (Auto) Urine Creatinine Complement C3 Complement C4 08/02/17 08/02/17 08/02/17 03:40 04:10 06:00 WBC RBC Hgb Hct MCH MCHC Plt Count Lymph % (Auto) [place] % (Auto) Lymph # [place] # Seg Neutrophils % Lymphocytes % (Manual) Seg Neutrophils # Seg Neutrophils # Man Lymphocytes # (Manual) Monocytes # (Manual) PT INR APTT POC ABG pH 7.474 H POC ABG pCO2 33.8 L POC ABG pO2 73 L Sodium 148 H Potassium Chloride 109.3 H Carbon Dioxide BUN 31 H Creatinine Glucose 168 H POC Glucose 172 H Lactic Acid Calcium 6.8 L Phosphorus Total Creatine Kinase CK-MB (CK-2) CK-MB (CK-2) Rel Index Troponin T C-Reactive Protein Serum Total Protein Albumin Wvcjz-8-Rkugbizwl Gamma Globulins PEP Interpretation Triglycerides LDL Cholesterol Direct HDL Cholesterol Urine WBC (Auto) Urine Creatinine Complement C3 Complement C4 08/02/17 08/02/17 08/02/17 07:09 11:25 17:46 WBC 20.1 H RBC Hgb 11.7 L Hct MCH MCHC Plt Count 127 L Lymph % (Auto) [place] % (Auto) Lymph # [place] # Seg Neutrophils % Lymphocytes % (Manual) Seg Neutrophils # Seg Neutrophils # Man Lymphocytes # (Manual) Monocytes # (Manual) PT INR APTT POC ABG pH POC ABG pCO2 POC ABG pO2 Sodium Potassium Chloride Carbon Dioxide BUN Creatinine Glucose POC Glucose 159 H 171 H Lactic Acid Calcium Phosphorus Total Creatine Kinase CK-MB (CK-2) CK-MB (CK-2) Rel Index Troponin T C-Reactive Protein Serum Total Protein Albumin Ebfoi-3-Hhrvlokal Gamma Globulins PEP Interpretation Triglycerides LDL Cholesterol Direct HDL Cholesterol Urine WBC (Auto) Urine Creatinine Complement C3 Complement C4 08/02/17 08/03/17 08/03/17 22:30 00:05 03:29 WBC RBC Hgb Hct MCH MCHC Plt Count Lymph % (Auto) [place] % (Auto) Lymph # [place] # Seg Neutrophils % Lymphocytes % (Manual) Seg Neutrophils # Seg Neutrophils # Man Lymphocytes # (Manual) Monocytes # (Manual) PT INR APTT POC ABG pH POC ABG pCO2 POC ABG pO2 Sodium 148 H Potassium Chloride 109.1 H Carbon Dioxide BUN 32 H Creatinine Glucose 179 H POC Glucose 179 H 199 H Lactic Acid Calcium 6.9 L Phosphorus Total Creatine Kinase CK-MB (CK-2) CK-MB (CK-2) Rel Index Troponin T C-Reactive Protein Serum Total Protein Albumin Oofbj-7-Uozamxfru Gamma Globulins PEP Interpretation Triglycerides LDL Cholesterol Direct HDL Cholesterol Urine WBC (Auto) Urine Creatinine Complement C3 Complement C4 08/03/17 08/03/17 08/03/17 03:29 05:40 06:01 WBC 19.9 H RBC Hgb Hct MCH MCHC Plt Count 130 L Lymph % (Auto) 7.0 L [place] % (Auto) 11.1 H Lymph # [place] # 2.2 H Seg Neutrophils % 81.4 H Lymphocytes % (Manual) Seg Neutrophils # 16.2 H Seg Neutrophils # Man Lymphocytes # (Manual) Monocytes # (Manual) PT INR APTT POC ABG pH 7.468 H POC ABG pCO2 POC ABG pO2 70 L Sodium Potassium Chloride Carbon Dioxide BUN Creatinine Glucose POC Glucose 179 H Lactic Acid Calcium Phosphorus Total Creatine Kinase CK-MB (CK-2) CK-MB (CK-2) Rel Index Troponin T C-Reactive Protein Serum Total Protein Albumin Xhogc-4-Ysstkfhos Gamma Globulins PEP Interpretation Triglycerides LDL Cholesterol Direct HDL Cholesterol Urine WBC (Auto) Urine Creatinine Complement C3 Complement C4 08/03/17 08/03/17 08/04/17 11:43 17:34 00:02 WBC RBC Hgb Hct MCH MCHC Plt Count Lymph % (Auto) [place] % (Auto) Lymph # [place] # Seg Neutrophils % Lymphocytes % (Manual) Seg Neutrophils # Seg Neutrophils # Man Lymphocytes # (Manual) Monocytes # (Manual) PT INR APTT POC ABG pH POC ABG pCO2 POC ABG pO2 Sodium Potassium Chloride Carbon Dioxide BUN Creatinine Glucose POC Glucose 166 H 193 H 191 H Lactic Acid Calcium Phosphorus Total Creatine Kinase CK-MB (CK-2) CK-MB (CK-2) Rel Index Troponin T C-Reactive Protein Serum Total Protein Albumin Aapqg-4-Rvxeyqlsv Gamma Globulins PEP Interpretation Triglycerides LDL Cholesterol Direct HDL Cholesterol Urine WBC (Auto) Urine Creatinine Complement C3 Complement C4 08/04/17 08/04/17 08/04/17 05:18 05:44 05:44 WBC 16.8 H RBC Hgb 11.7 L Hct MCH 27 L MCHC Plt Count Lymph % (Auto) 5.0 L [place] % (Auto) 9.5 H Lymph # 0.8 L [place] # 1.6 H Seg Neutrophils % 84.7 H Lymphocytes % (Manual) Seg Neutrophils # 14.2 H Seg Neutrophils # Man Lymphocytes # (Manual) Monocytes # (Manual) PT INR APTT POC ABG pH POC ABG pCO2 POC ABG pO2 Sodium 148 H Potassium Chloride 108.1 H Carbon Dioxide BUN 31 H Creatinine Glucose 181 H POC Glucose 173 H Lactic Acid Calcium 7.6 L Phosphorus Total Creatine Kinase CK-MB (CK-2) CK-MB (CK-2) Rel Index Troponin T C-Reactive Protein Serum Total Protein Albumin Rojga-8-Qcodmkgtv Gamma Globulins PEP Interpretation Triglycerides LDL Cholesterol Direct HDL Cholesterol Urine WBC (Auto) Urine Creatinine Complement C3 Complement C4 08/04/17 08/04/17 08/04/17 10:58 12:34 17:35 WBC RBC Hgb Hct MCH MCHC Plt Count Lymph % (Auto) [place] % (Auto) Lymph # [place] # Seg Neutrophils % Lymphocytes % (Manual) Seg Neutrophils # Seg Neutrophils # Man Lymphocytes # (Manual) Monocytes # (Manual) PT INR APTT POC ABG pH 7.490 H POC ABG pCO2 POC ABG pO2 71 L Sodium Potassium Chloride Carbon Dioxide BUN Creatinine Glucose POC Glucose 191 H 188 H Lactic Acid Calcium Phosphorus Total Creatine Kinase CK-MB (CK-2) CK-MB (CK-2) Rel Index Troponin T C-Reactive Protein Serum Total Protein Albumin Seyxr-4-Abfczlxeo Gamma Globulins PEP Interpretation Triglycerides LDL Cholesterol Direct HDL Cholesterol Urine WBC (Auto) Urine Creatinine Complement C3 Complement C4 08/05/17 08/05/17 08/05/17 00:00 05:32 07:34 WBC 14.4 H RBC Hgb 10.6 L Hct 32.3 L MCH MCHC Plt Count Lymph % (Auto) 6.7 L [place] % (Auto) 8.6 H Lymph # 1.0 L [place] # 1.2 H Seg Neutrophils % 81.8 H Lymphocytes % (Manual) Seg Neutrophils # 11.8 H Seg Neutrophils # Man Lymphocytes # (Manual) Monocytes # (Manual) PT INR APTT POC ABG pH POC ABG pCO2 POC ABG pO2 Sodium Potassium Chloride Carbon Dioxide BUN Creatinine Glucose POC Glucose 216 H 240 H Lactic Acid Calcium Phosphorus Total Creatine Kinase CK-MB (CK-2) CK-MB (CK-2) Rel Index Troponin T C-Reactive Protein Serum Total Protein Albumin Htxnw-5-Kfbicftct Gamma Globulins PEP Interpretation Triglycerides LDL Cholesterol Direct HDL Cholesterol Urine WBC (Auto) Urine Creatinine Complement C3 Complement C4 08/05/17 08/05/17 08/05/17 07:34 12:36 17:51 WBC RBC Hgb Hct MCH MCHC Plt Count Lymph % (Auto) [place] % (Auto) Lymph # [place] # Seg Neutrophils % Lymphocytes % (Manual) Seg Neutrophils # Seg Neutrophils # Man Lymphocytes # (Manual) Monocytes # (Manual) PT INR APTT POC ABG pH POC ABG pCO2 POC ABG pO2 Sodium 148 H Potassium Chloride 107.7 H Carbon Dioxide BUN 32 H Creatinine Glucose 241 H POC Glucose 206 H 190 H Lactic Acid Calcium 7.6 L Phosphorus 1.90 L Total Creatine Kinase CK-MB (CK-2) CK-MB (CK-2) Rel Index Troponin T C-Reactive Protein Serum Total Protein Albumin Ixpos-3-Mfgjteidr Gamma Globulins PEP Interpretation Triglycerides LDL Cholesterol Direct HDL Cholesterol Urine WBC (Auto) Urine Creatinine Complement C3 Complement C4 08/05/17 08/06/17 08/06/17 22:11 00:35 04:34 WBC 16.2 H RBC Hgb 11.6 L Hct MCH MCHC Plt Count Lymph % (Auto) 5.8 L [place] % (Auto) 9.3 H Lymph # 0.9 L [place] # 1.5 H Seg Neutrophils % 83.5 H Lymphocytes % (Manual) Seg Neutrophils # 13.5 H Seg Neutrophils # Man Lymphocytes # (Manual) Monocytes # (Manual) PT INR APTT POC ABG pH POC ABG pCO2 POC ABG pO2 Sodium Potassium Chloride Carbon Dioxide BUN Creatinine Glucose POC Glucose 169 H 191 H Lactic Acid Calcium Phosphorus Total Creatine Kinase CK-MB (CK-2) CK-MB (CK-2) Rel Index Troponin T C-Reactive Protein Serum Total Protein Albumin Iaanr-7-Jrgusltxh Gamma Globulins PEP Interpretation Triglycerides LDL Cholesterol Direct HDL Cholesterol Urine WBC (Auto) Urine Creatinine Complement C3 Complement C4 08/06/17 08/06/17 08/06/17 04:34 05:44 11:45 WBC RBC Hgb Hct MCH MCHC Plt Count Lymph % (Auto) [place] % (Auto) Lymph # [place] # Seg Neutrophils % Lymphocytes % (Manual) Seg Neutrophils # Seg Neutrophils # Man Lymphocytes # (Manual) Monocytes # (Manual) PT INR APTT POC ABG pH POC ABG pCO2 POC ABG pO2 Sodium Potassium Chloride Carbon Dioxide BUN 30 H Creatinine Glucose 241 H POC Glucose 223 H 239 H Lactic Acid Calcium 8.0 L Phosphorus Total Creatine Kinase CK-MB (CK-2) CK-MB (CK-2) Rel Index Troponin T C-Reactive Protein Serum Total Protein Albumin Xfooj-4-Kayggnqtm Gamma Globulins PEP Interpretation Triglycerides LDL Cholesterol Direct HDL Cholesterol Urine WBC (Auto) Urine Creatinine Complement C3 Complement C4 08/06/17 08/06/17 08/07/17 17:55 23:43 05:24 WBC 13.5 H RBC 3.58 L Hgb 10.4 L Hct 31.4 L MCH MCHC Plt Count Lymph % (Auto) 5.8 L [place] % (Auto) 8.7 H Lymph # 0.8 L [place] # 1.2 H Seg Neutrophils % 83.2 H Lymphocytes % (Manual) Seg Neutrophils # 11.2 H Seg Neutrophils # Man Lymphocytes # (Manual) Monocytes # (Manual) PT INR APTT POC ABG pH POC ABG pCO2 POC ABG pO2 Sodium Potassium Chloride Carbon Dioxide BUN Creatinine Glucose POC Glucose 227 H 243 H Lactic Acid Calcium Phosphorus Total Creatine Kinase CK-MB (CK-2) CK-MB (CK-2) Rel Index Troponin T C-Reactive Protein Serum Total Protein Albumin Bcbio-0-Pmtxjbtsc Gamma Globulins PEP Interpretation Triglycerides LDL Cholesterol Direct HDL Cholesterol Urine WBC (Auto) Urine Creatinine Complement C3 Complement C4 08/07/17 08/07/17 08/07/17 05:24 05:38 18:16 WBC RBC Hgb Hct MCH MCHC Plt Count Lymph % (Auto) [place] % (Auto) Lymph # [place] # Seg Neutrophils % Lymphocytes % (Manual) Seg Neutrophils # Seg Neutrophils # Man Lymphocytes # (Manual) Monocytes # (Manual) PT INR APTT POC ABG pH POC ABG pCO2 POC ABG pO2 Sodium Potassium Chloride Carbon Dioxide BUN 28 H Creatinine Glucose 184 H POC Glucose 192 H 189 H Lactic Acid Calcium 7.8 L Phosphorus Total Creatine Kinase CK-MB (CK-2) CK-MB (CK-2) Rel Index Troponin T C-Reactive Protein Serum Total Protein Albumin Tuhsf-2-Hinqrdzli Gamma Globulins PEP Interpretation Triglycerides LDL Cholesterol Direct HDL Cholesterol Urine WBC (Auto) Urine Creatinine Complement C3 Complement C4 08/08/17 08/08/17 08/08/17 00:03 06:23 06:33 WBC 14.8 H RBC Hgb 11.0 L Hct 33.7 L MCH MCHC Plt Count Lymph % (Auto) 7.6 L [place] % (Auto) 9.9 H Lymph # 1.1 L [place] # 1.5 H Seg Neutrophils % 80.4 H Lymphocytes % (Manual) Seg Neutrophils # 11.9 H Seg Neutrophils # Man Lymphocytes # (Manual) Monocytes # (Manual) PT INR APTT POC ABG pH POC ABG pCO2 POC ABG pO2 Sodium Potassium Chloride Carbon Dioxide BUN Creatinine Glucose POC Glucose 205 H 173 H Lactic Acid Calcium Phosphorus Total Creatine Kinase CK-MB (CK-2) CK-MB (CK-2) Rel Index Troponin T C-Reactive Protein Serum Total Protein Albumin Jjmog-6-Qqirylosk Gamma Globulins PEP Interpretation Triglycerides LDL Cholesterol Direct HDL Cholesterol Urine WBC (Auto) Urine Creatinine Complement C3 Complement C4 08/08/17 08/08/17 08/08/17 06:33 11:32 17:58 WBC RBC Hgb Hct MCH MCHC Plt Count Lymph % (Auto) [place] % (Auto) Lymph # [place] # Seg Neutrophils % Lymphocytes % (Manual) Seg Neutrophils # Seg Neutrophils # Man Lymphocytes # (Manual) Monocytes # (Manual) PT INR APTT POC ABG pH POC ABG pCO2 POC ABG pO2 Sodium Potassium Chloride Carbon Dioxide BUN 29 H Creatinine Glucose 195 H POC Glucose 188 H 215 H Lactic Acid Calcium 8.2 L Phosphorus Total Creatine Kinase CK-MB (CK-2) CK-MB (CK-2) Rel Index Troponin T C-Reactive Protein Serum Total Protein Albumin Wgdhk-0-Ysnqadexc Gamma Globulins PEP Interpretation Triglycerides LDL Cholesterol Direct HDL Cholesterol Urine WBC (Auto) Urine Creatinine Complement C3 Complement C4 08/09/17 08/09/17 08/09/17 00:16 05:07 12:05 WBC RBC Hgb Hct MCH MCHC Plt Count Lymph % (Auto) [place] % (Auto) Lymph # [place] # Seg Neutrophils % Lymphocytes % (Manual) Seg Neutrophils # Seg Neutrophils # Man Lymphocytes # (Manual) Monocytes # (Manual) PT INR APTT POC ABG pH POC ABG pCO2 POC ABG pO2 Sodium Potassium Chloride Carbon Dioxide BUN Creatinine Glucose POC Glucose 193 H 231 H Lactic Acid Calcium Phosphorus Total Creatine Kinase CK-MB (CK-2) CK-MB (CK-2) Rel Index Troponin T C-Reactive Protein Serum Total Protein Albumin Ngjow-8-Ijuwfxwpi Gamma Globulins PEP Interpretation Triglycerides LDL Cholesterol Direct HDL Cholesterol Urine WBC (Auto) 167.0 H Urine Creatinine Complement C3 Complement C4 08/09/17 08/09/17 08/09/17 12:10 13:58 14:56 WBC 15.3 H RBC Hgb 10.8 L Hct 33.0 L MCH MCHC Plt Count Lymph % (Auto) [place] % (Auto) Lymph # [place] # Seg Neutrophils % Lymphocytes % (Manual) Seg Neutrophils # Seg Neutrophils # Man Lymphocytes # (Manual) Monocytes # (Manual) PT INR APTT POC ABG pH POC ABG pCO2 POC ABG pO2 Sodium 136 L Potassium Chloride 97.6 L Carbon Dioxide BUN 27 H Creatinine Glucose 165 H POC Glucose 221 H Lactic Acid Calcium 8.2 L Phosphorus Total Creatine Kinase CK-MB (CK-2) CK-MB (CK-2) Rel Index Troponin T C-Reactive Protein Serum Total Protein Albumin Jgyus-7-Hfeipodde Gamma Globulins PEP Interpretation Triglycerides LDL Cholesterol Direct HDL Cholesterol Urine WBC (Auto) Urine Creatinine Complement C3 Complement C4 08/09/17 08/09/17 08/10/17 17:30 23:39 03:32 WBC 12.3 H RBC Hgb 10.8 L Hct 32.5 L MCH MCHC Plt Count Lymph % (Auto) 10.2 L [place] % (Auto) 13.0 H Lymph # [place] # 1.6 H Seg Neutrophils % 75.4 H Lymphocytes % (Manual) Seg Neutrophils # 9.3 H Seg Neutrophils # Man Lymphocytes # (Manual) Monocytes # (Manual) PT INR APTT POC ABG pH POC ABG pCO2 POC ABG pO2 Sodium Potassium Chloride Carbon Dioxide BUN Creatinine Glucose POC Glucose 186 H 177 H Lactic Acid Calcium Phosphorus Total Creatine Kinase CK-MB (CK-2) CK-MB (CK-2) Rel Index Troponin T C-Reactive Protein Serum Total Protein Albumin Kjruh-7-Xmpcieijw Gamma Globulins PEP Interpretation Triglycerides LDL Cholesterol Direct HDL Cholesterol Urine WBC (Auto) Urine Creatinine Complement C3 Complement C4 08/10/17 08/10/17 08/10/17 03:32 05:13 12:06 WBC RBC Hgb Hct MCH MCHC Plt Count Lymph % (Auto) [place] % (Auto) Lymph # [place] # Seg Neutrophils % Lymphocytes % (Manual) Seg Neutrophils # Seg Neutrophils # Man Lymphocytes # (Manual) Monocytes # (Manual) PT INR APTT POC ABG pH POC ABG pCO2 POC ABG pO2 Sodium 136 L Potassium Chloride 97.5 L Carbon Dioxide BUN 30 H Creatinine Glucose 144 H POC Glucose 135 H 145 H Lactic Acid Calcium 8.2 L Phosphorus Total Creatine Kinase CK-MB (CK-2) CK-MB (CK-2) Rel Index Troponin T C-Reactive Protein Serum Total Protein Albumin Drsac-9-Ymckaootb Gamma Globulins PEP Interpretation Triglycerides LDL Cholesterol Direct HDL Cholesterol Urine WBC (Auto) Urine Creatinine Complement C3 Complement C4 08/10/17 08/10/17 08/11/17 18:06 21:10 05:28 WBC RBC Hgb Hct MCH MCHC Plt Count Lymph % (Auto) [place] % (Auto) Lymph # [place] # Seg Neutrophils % Lymphocytes % (Manual) Seg Neutrophils # Seg Neutrophils # Man Lymphocytes # (Manual) Monocytes # (Manual) PT INR APTT POC ABG pH POC ABG pCO2 POC ABG pO2 Sodium Potassium Chloride Carbon Dioxide BUN Creatinine Glucose POC Glucose 114 H 119 H 108 H Lactic Acid Calcium Phosphorus Total Creatine Kinase CK-MB (CK-2) CK-MB (CK-2) Rel Index Troponin T C-Reactive Protein Serum Total Protein Albumin Jryjd-9-Lgqlokbqh Gamma Globulins PEP Interpretation Triglycerides LDL Cholesterol Direct HDL Cholesterol Urine WBC (Auto) Urine Creatinine Complement C3 Complement C4
--- NOTE | 2017-08-11 13:52 | Progress Note ---
Assessment and Plan POD # 1 S/P trach and PEG without complications We will sign off Subjective Date of service: 08/11/17 Patient Reports: Positive: other (family at bedside) Objective Vital Signs - 12hr 08/11/17 08/11/17 08/11/17 02:00 03:00 03:28 Temperature Pulse Rate 64 63 64 Pulse Rate [ Right Dorsalis Pedis] Respiratory 16 16 Rate Blood Pressure 132/81 131/81 131/81 O2 Sat by Pulse 98 97 98 Oximetry O2 Sat by Pulse Oximetry [ Assessment] 08/11/17 08/11/17 08/11/17 04:00 05:00 06:01 Temperature 99.6 F Pulse Rate 62 62 64 Pulse Rate [ 63 Right Dorsalis Pedis] Respiratory 11 L 16 9 L Rate Blood Pressure 122/72 118/69 138/76 O2 Sat by Pulse 97 97 98 Oximetry O2 Sat by Pulse Oximetry [ Assessment] 08/11/17 08/11/17 08/11/17 07:00 08:00 09:00 Temperature 98.6 F Pulse Rate 64 62 62 Pulse Rate [ Right Dorsalis Pedis] Respiratory 16 16 15 Rate Blood Pressure 132/78 116/70 136/83 O2 Sat by Pulse 96 98 97 Oximetry O2 Sat by Pulse Oximetry [ Assessment] 08/11/17 08/11/17 08/11/17 09:28 09:43 10:01 Temperature Pulse Rate 63 63 Pulse Rate [ Right Dorsalis Pedis] Respiratory 17 Rate Blood Pressure 136/83 140/77 O2 Sat by Pulse 98 96 Oximetry O2 Sat by Pulse 96 Oximetry [ Assessment] 08/11/17 11:01 Temperature Pulse Rate 65 Pulse Rate [ Right Dorsalis Pedis] Respiratory 20 Rate Blood Pressure 134/81 O2 Sat by Pulse 98 Oximetry O2 Sat by Pulse Oximetry [ Assessment] - Neck other (trach site clean and dry) - Abdomen other (PEG site clean and dry) - Labs 08/10/17 03:32 08/10/17 03:32
--- NOTE | 2017-08-11 17:02 | Progress Note ---
Assessment and Plan Assessment and plan: 71 year old man with history of CAD, CHF was brought to the emergency room after he had a cardiac arrest at home. He had a cough productive of yellow phlegm, fever 3 days. EMS was called, CPR was continued for another 40 minutes prior to arrival in the emergency room, he had a V. fib or V. tach rhythm for which he was shocked per EMS. CPR was continued in the emergency room, he was hypotensive and placed on levophed and vasopressin. Remains unresponsive. Neurologist evaaluated him EEG no active seizure. Showed slow waves Cardio-resp arrest at home. - Patient is comatose, on amiodarone - Patient is briefly Coded on 08/09/2017 due to malfunction of the ET tube Persistent vegetative state - Was evaluated by surgeon for PEG and trach placement Shock. Cardiogenic +/- septic shock. V fib sp shock off vasopressor, BP is stable. -Apparently, patient declined ICD 30 days ago Hematuria - Resolved Acute hypoxic Respiratory failure on MV >96 hours -continue vent management Ischemic cardiomyopathy, LVEF 15-20% - CAD s/p CABG 2005 at [facility] - [facility] to LAD; COREY to RI; SVG to PLOM; SVG to RV branch and PDA branch Non-specific troponin - Not consistent with ACS Acute kidney Injury due to acute tubular necrosis - Resolved CAD s/p CABG. 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 - Anoxic encephalopathy. EEG showed no active seizure, slow waves - Dr. Brown following Hypernatremia - Resolved Leukocytosis: From presumed aspiration pneumonia versus community acquired pneumonia. Blood cultures no growth to date. Continue Zosyn/ vanco ID following Pneumonia/Septic shock: left lobar, likely aspiration Blood culture so far are neg. continue abx -influenza neg, legionella neg, Strep pneumoniae neg -crp=4 -repeat resp cx 08/01 +MRSA (likely a colonizer) Hyperglycemia: Monitor blood sugars with sliding scale coverage for now - Full code status - Prophylaxis with Lovenox, GI with Pepcid. [facility] The high probability of a clinically significant, sudden or life threatening deterioration of the [cv, neuro, renal, pulmonary] system(s) required my full and direct attention, intervention and personal management. The aggregate critical care time was [32] minutes. This time is in addition to time spent performing reported procedures but includes the following: [x] Data Review and interpretation [x] Patient assessment and monitoring of vital signs [x] Documentation [x] Medication orders and management History Interval history: Patient was seen and evaluated this morning, patient is non communicative. patient is on PEG and trach. Discussed management plan with his who was in the room by the time of examination. Hospitalist Physical - Physical exam Narrative exam: Patient is on PEG and trach. The patient appeared well nourished and normally developed. Vital signs as documented. Head exam is unremarkable. No scleral icterus . Neck is without jugular venous distension, thyromegaly, or carotid bruits. Lungs are clear to auscultation. Cardiac exam reveals regular rate and Rhythm. First and second heart sounds normal. No murmurs, rubs or gallops. Abdominal exam reveals normal bowel sounds, no masses, no organomegaly and no aortic enlargement. Extremities are nonedematous and both femoral and pedal pulses are normal. blood in the catheter. TRACTOR OPERATOR HELPER: Comatose. - Constitutional Vitals: Temp Pulse Resp BP Pulse Ox 98.8 F 62 17 119/70 98 08/11/17 12:00 08/11/17 14:01 08/11/17 14:01 08/11/17 14:01 08/11/17 14:01 General appearance: Present: no acute distress, well-nourished (intubated and vent supported), other Results - Labs CBC & Chem 7: 08/10/17 03:32 08/10/17 03:32 Labs: Laboratory Last Values WBC 12.3 K/mm3 (4.5-11.0) H 08/10/17 03:32 RBC 3.72 M/mm3 (3.65-5.03) 08/10/17 03:32 Hgb 10.8 gm/dl (11.8-15.2) L 08/10/17 03:32 Hct 32.5 % (35.5-45.6) L 08/10/17 03:32 MCV 87 fl (84-94) 08/10/17 03:32 MCH 29 pg (28-32) 08/10/17 03:32 MCHC 33 % (32-34) 08/10/17 03:32 RDW 14.1 % (13.2-15.2) 08/10/17 03:32 Plt Count 243 K/mm3 (140-440) 08/10/17 03:32 Lymph % (Auto) 10.2 % (13.4-35.0) L 08/10/17 03:32 [place] % (Auto) 13.0 % (0.0-7.3) H 08/10/17 03:32 Eos % (Auto) 1.1 % (0.0-4.3) 08/10/17 03:32 Baso % (Auto) 0.3 % (0.0-1.8) 08/10/17 03:32 Lymph # 1.3 K/mm3 (1.2-5.4) 08/10/17 03:32 [place] # 1.6 K/mm3 (0.0-0.8) H 08/10/17 03:32 Eos # 0.1 K/mm3 (0.0-0.4) 08/10/17 03:32 Baso # 0.0 K/mm3 (0.0-0.1) 08/10/17 03:32 Add Manual Diff Complete 07/27/17 18:26 Total Counted 100 07/27/17 18:26 Seg Neutrophils % 75.4 % (40.0-70.0) H 08/10/17 03:32 Seg Neuts % (Manual) 57.0 % (40.0-70.0) 07/27/17 18:26 Band Neutrophils % 0 % 07/27/17 18:26 Lymphocytes % (Manual) 36.0 % (13.4-35.0) H 07/27/17 18:26 Reactive Lymphs % (Man) 0 % 07/27/17 18:26 Monocytes % (Manual) 7.0 % (0.0-7.3) 07/27/17 18:26 Eosinophils % (Manual) 0 % (0.0-4.3) 07/27/17 18:26 Basophils % (Manual) 0 % (0.0-1.8) 07/27/17 18:26 Metamyelocytes % 0 % 07/27/17 18:26 Myelocytes % 0 % 07/27/17 18:26 Promyelocytes % 0 % 07/27/17 18:26 Blast Cells % 0 % 07/27/17 18:26 Nucleated RBC % Not Reportable 07/27/17 18:26 Seg Neutrophils # 9.3 K/mm3 (1.8-7.7) H 08/10/17 03:32 Seg Neutrophils # Man 8.9 K/mm3 (1.8-7.7) H 07/27/17 18:26 Band Neutrophils # 0.0 K/mm3 07/27/17 18:26 Lymphocytes # (Manual) 5.6 K/mm3 (1.2-5.4) H 07/27/17 18:26 Abs React Lymphs (Man) 0.0 K/mm3 07/27/17 18:26 Monocytes # (Manual) 1.1 K/mm3 (0.0-0.8) H 07/27/17 18:26 Eosinophils # (Manual) 0.0 K/mm3 (0.0-0.4) 07/27/17 18:26 Basophils # (Manual) 0.0 K/mm3 (0.0-0.1) 07/27/17 18:26 Metamyelocytes # 0.0 K/mm3 07/27/17 18:26 Myelocytes # 0.0 K/mm3 07/27/17 18:26 Promyelocytes # 0.0 K/mm3 07/27/17 18:26 Blast Cells # 0.0 K/mm3 07/27/17 18:26 WBC Morphology Not Reportable 07/27/17 18:26 Hypersegmented Neuts Not Reportable 07/27/17 18:26 Hyposegmented Neuts Not Reportable 07/27/17 18:26 Hypogranular Neuts Not Reportable 07/27/17 18:26 Smudge Cells Not Reportable 07/27/17 18:26 Toxic Granulation Not Reportable 07/27/17 18:26 Toxic Vacuolation Not Reportable 07/27/17 18:26 Dohle Bodies Not Reportable 07/27/17 18:26 Pelger-Huet Anomaly Not Reportable 07/27/17 18:26 [place] Rods Not Reportable 07/27/17 18:26 Platelet Estimate Consistent w auto 07/27/17 18:26 Clumped Platelets Not Reportable 07/27/17 18:26 Plt Clumps, EDTA Not Reportable 07/27/17 18:26 Large Platelets Not Reportable 07/27/17 18:26 Giant Platelets Not Reportable 07/27/17 18:26 Platelet Satelliting Not Reportable 07/27/17 18:26 Plt Morphology Comment Not Reportable 07/27/17 18:26 RBC Morphology Not Reportable 07/27/17 18:26 Dimorphic RBCs Not Reportable 07/27/17 18:26 Polychromasia Not Reportable 07/27/17 18:26 Hypochromasia Not Reportable 07/27/17 18:26 Poikilocytosis Not Reportable 07/27/17 18:26 Anisocytosis Rare 07/27/17 18:26 Microcytosis Not Reportable 07/27/17 18:26 Macrocytosis Not Reportable 07/27/17 18:26 Spherocytes Not Reportable 07/27/17 18:26 Pappenheimer Bodies Not Reportable 07/27/17 18:26 Sickle Cells Not Reportable 07/27/17 18:26 Target Cells Not Reportable 07/27/17 18:26 Tear Drop Cells Not Reportable 07/27/17 18:26 Ovalocytes Not Reportable 07/27/17 18:26 Helmet Cells Not Reportable 07/27/17 18:26 [place] Bodies Not Reportable 07/27/17 18:26 Edmonds Rings Not Reportable 07/27/17 18:26 Moiz Cells Not Reportable 07/27/17 18:26 Bite Cells Not Reportable 07/27/17 18:26 Crenated Cell Not Reportable 07/27/17 18:26 Elliptocytes Not Reportable 07/27/17 18:26 Acanthocytes (Spur) Not Reportable 07/27/17 18:26 Rouleaux Not Reportable 07/27/17 18:26 Hemoglobin C Crystals Not Reportable 07/27/17 18:26 Schistocytes Not Reportable 07/27/17 18:26 Malaria parasites Not Reportable 07/27/17 18:26 Mina Bodies Not Reportable 07/27/17 18:26 Hem Pathologist Commnt No 07/27/17 18:26 PT 14.5 Sec. (12.2-14.9) 08/10/17 03:32 INR 1.07 (0.87-1.13) 08/10/17 03:32 APTT 31.7 Sec. (24.2-36.6) 08/10/17 03:32 POC ABG pH 7.490 (7.35-7.45) H 08/04/17 10:58 POC ABG pCO2 39.0 (35-45) 08/04/17 10:58 POC ABG pO2 71 (80-105) L 08/04/17 10:58 POC ABG HCO3 29.7 08/04/17 10:58 POC ABG Total CO2 31 08/04/17 10:58 POC ABG O2 Sat 95 08/04/17 10:58 POC ABG Base Excess 6 08/04/17 10:58 FiO2 25 % 08/04/17 10:58 Sodium 136 mmol/L (137-145) L 08/10/17 03:32 Potassium 4.4 mmol/L (3.6-5.0) 08/10/17 03:32 Chloride 97.5 mmol/L (98-107) L 08/10/17 03:32 Carbon Dioxide 26 mmol/L (22-30) 08/10/17 03:32 Anion Gap 17 mmol/L 08/10/17 03:32 BUN 30 mg/dL (9-20) H 08/10/17 03:32 Creatinine 1.0 mg/dL (0.8-1.5) 08/10/17 03:32 Estimated GFR > 60 ml/min 08/10/17 03:32 BUN/Creatinine Ratio 30 % 08/10/17 03:32 Glucose 144 mg/dL (75-100) H 08/10/17 03:32 POC Glucose 108 (70-105) H 08/11/17 05:28 Lactic Acid 1.80 mmol/L (0.7-2.0) 08/03/17 03:29 Calcium 8.2 mg/dL (8.4-10.2) L 08/10/17 03:32 Phosphorus 3.30 mg/dL (2.5-4.5) 08/09/17 13:58 Magnesium 1.90 mg/dL (1.7-2.3) 08/09/17 13:58 Total Creatine Kinase 434 units/L (55-170) H 07/28/17 05:44 CK-MB (CK-2) 10.8 ng/mL (0.0-4.0) H 07/28/17 05:44 CK-MB (CK-2) Rel Index 2.4 (0-4) 07/28/17 05:44 Troponin T 0.521 ng/mL (0.00-0.029) H* D 07/28/17 05:44 C-Reactive Protein 4.00 mg/dL (0.00-1.30) H 08/01/17 19:42 Serum Total Protein 4.9 g/dL (6.1-8.1) L 07/29/17 Unknown Albumin 2.9 g/dL (3.8-4.8) L 07/29/17 Unknown Gnizf-4-Sepidovhc 0.4 g/dL (0.2-0.3) H 07/29/17 Unknown Tznxe-1-Aujbakyme 0.6 g/dL (0.5-0.9) 07/29/17 Unknown Beta Globulins 0.2 g/dL (0.2-0.5) 07/29/17 Unknown Gamma Globulins 0.5 g/dL (0.8-1.7) L 07/29/17 Unknown Abnorm Protein Band 1 see below 07/29/17 Unknown PEP Interpretation see below H 07/29/17 Unknown Triglycerides 190 mg/dL (2-149) H 07/27/17 18:26 Cholesterol 93 mg/dL (50-199) 07/27/17 18:26 LDL Cholesterol Direct 34 mg/dL (50-130) L 07/27/17 18:26 HDL Cholesterol 21 mg/dL (40-59) L 07/27/17 18:26 Cholesterol/HDL Ratio 4.42 % 07/27/17 18:26 Urine Color Red (Yellow) 08/09/17 12:05 Urine Turbidity Clear (Clear) 08/09/17 12:05 Urine pH 7.0 (5.0-7.0) 08/09/17 12:05 Ur Specific [place] 1.009 (1.003-1.030) 08/09/17 12:05 Urine Protein 100 mg/dl mg/dL (Negative) 08/09/17 12:05 Urine Glucose (UA) 50 mg/dL (Negative) 08/09/17 12:05 Urine Ketones Neg mg/dL (Negative) 08/09/17 12:05 Urine Blood Lg (Negative) 08/09/17 12:05 Urine Nitrite Neg (Negative) 08/09/17 12:05 Ur Reducing Substances Not Reportable 07/27/17 22:46 Urine Bilirubin Neg (Negative) 08/09/17 12:05 Urine Ictotest Not Reportable 07/27/17 22:46 Urine Urobilinogen 4.0 mg/dL (<2.0) 08/09/17 12:05 Ur Leukocyte Esterase Sm (Negative) 08/09/17 12:05 Urine WBC (Auto) 167.0 /HPF (0.0-6.0) H 08/09/17 12:05 Urine RBC (Auto) > 182.0 /HPF (0.0-6.0) 08/09/17 12:05 U Epithel Cells (Auto) 1.0 /HPF (0-13.0) 08/09/17 12:05 Urine Bacteria (Auto) 1+ /HPF (Negative) 07/27/17 22:46 Amorphous Crystals Few 07/28/17 16:20 Urine Mucus Few /HPF 08/01/17 19:45 Urine Yeast (Budding) Few /HPF 07/28/17 16:20 Urine Eosinophils None seen (None Seen) 07/28/17 16:20 Urine Creatinine 58.4 mg/dL (0.1-20.0) H 07/28/17 16:20 Urine Sodium 94 mmol/L 07/28/17 16:20 Fraction Sodium Excret 2.6 07/28/17 16:20 Vancomycin Trough 7.1 ug/mL (5.0-20.0) 08/07/17 14:18 Urine Opiates Screen Presumptive negative 07/27/17 22:46 Urine Methadone Screen Presumptive negative 07/27/17 22:46 Ur Barbiturates Screen Presumptive negative 07/27/17 22:46 Ur Phencyclidine Scrn Presumptive negative 07/27/17 22:46 Ur Amphetamines Screen Presumptive negative 07/27/17 22:46 U Benzodiazepines Scrn Presumptive negative 07/27/17 22:46 Urine Cocaine Screen Presumptive negative 07/27/17 22:46 U Marijuana (THC) Screen Presumptive negative 07/27/17 22:46 Drugs of Abuse Note Disclamer 07/27/17 22:46 Proteinase 3 (PR3) Ab <1.0 AI (<1.0) 07/28/17 16:00 Myeloperoxidase Ab <1.0 AI (<1.0) 07/28/17 16:00 Double Strand DNA Ab <1 IU/mL (<=4) 07/28/17 16:00 Complement C3 67 mg/dL (90-180) L 07/28/17 16:00 Complement C4 14 mg/dL (16-47) L 07/28/17 16:00 Hepatitis A IgM Ab Non-reactive (NonReactive) 07/28/17 16:00 Hep Bs Antigen Non-reactive (Negative) 07/28/17 16:00 Hep B Core IgM Ab Non-reactive (NonReactive) 07/28/17 16:00 Hepatitis C Antibody Non-reactive (NonReactive) 07/28/17 16:00 Urine Legionella Ag Not detected (Not Detected) 08/01/17 19:45 Miscellaneous Test Flexitest 1 08/01/17 19:45 Blood Type A POSITIVE 08/10/17 03:32 Antibody Screen Negative 08/10/17 03:32
[2017-08-11] MEDS: LOVENOX SUB-Q SCH (22:05)
[2017-08-11] MEDS: NOVOLOG SUB-Q SCH (22:07)
--- NOTE | 2017-08-12 09:55 | Event Note ---
Chart was reviewed Patient's renal function has normalized CT scan shows evidence of cyst and kidney stone, which clinically does not make any difference at this time Given the patient's renal function has normalized would like to sign off the case Please call if needed
--- NOTE | 2017-08-12 10:58 | Progress Note ---
Assessment and Plan Out of the hospital Cardiac arrest manifested by ventricular fibrillation 40 minutes of ACLS before ROSC Family member reports patient declined ICD 30 days ago on oral amiodarone Anoxic encephalopathy Ischemic cardiomyopathy, LVEF 15-20% CAD s/p CABG 2005 at [place] [facility] to LAD; COREY to RI; SVG to PLOM; SVG to RV branch and PDA branch Non-specific troponin Acute renal failure LLL pneumonia MRSA + culture Supportive cardiac management. Subjective Date of service: 08/12/17 Principal diagnosis: cardiac arrest at home. Intubated and unresponcsive Interval history: Remains unresponsive on the vent. Objective Vital Signs Temp Pulse Pulse Pulse Resp BP Pulse Ox 08/12/17 09:10 64 19 157/86 96 08/12/17 08:50 61 117/68 99 08/12/17 08:00 98.6 F 58 L 16 118/70 97 08/12/17 07:00 60 16 124/77 97 08/12/17 06:00 61 16 137/82 97 08/12/17 05:00 61 16 140/81 98 08/12/17 04:00 98.6 F 61 61 61 16 137/84 98 08/12/17 03:41 62 134/79 98 08/12/17 03:00 62 16 135/82 98 08/12/17 02:00 62 16 141/84 100 08/12/17 01:00 61 16 142/86 100 08/12/17 00:01 63 15 135/86 100 08/12/17 00:00 98.4 F 61 61 98 08/11/17 23:32 08/11/17 23:29 64 135/86 98 08/11/17 23:21 64 21 135/86 98 08/11/17 23:00 65 21 135/86 98 08/11/17 22:05 65 152/95 08/11/17 22:00 67 16 152/95 97 08/11/17 21:00 63 19 147/89 08/11/17 20:01 62 21 145/85 99 08/11/17 20:00 98.4 F 65 65 98 08/11/17 19:37 63 17 124/77 98 08/11/17 19:00 62 17 128/77 96 08/11/17 18:01 68 20 150/97 96 08/11/17 17:55 70 22 150/91 98 08/11/17 17:25 08/11/17 17:01 64 19 148/79 98 08/11/17 16:01 61 20 144/87 100 08/11/17 16:00 97.3 F L 98 08/11/17 15:00 60 17 121/73 97 08/11/17 14:01 62 17 119/70 98 08/11/17 13:40 62 17 119/70 99 08/11/17 13:01 63 19 131/82 100 08/11/17 12:01 63 19 137/79 99 08/11/17 12:00 98.8 F 99 08/11/17 11:01 65 20 134/81 98 Pulse Ox 08/12/17 09:10 08/12/17 08:50 99 08/12/17 08:00 08/12/17 07:00 08/12/17 06:00 08/12/17 05:00 08/12/17 04:00 08/12/17 03:41 08/12/17 03:00 08/12/17 02:00 08/12/17 01:00 08/12/17 00:01 08/12/17 00:00 08/11/17 23:32 98 08/11/17 23:29 08/11/17 23:21 08/11/17 23:00 08/11/17 22:05 08/11/17 22:00 08/11/17 21:00 08/11/17 20:01 08/11/17 20:00 08/11/17 19:37 08/11/17 19:00 08/11/17 18:01 08/11/17 17:55 08/11/17 17:25 98 08/11/17 17:01 08/11/17 16:01 08/11/17 16:00 08/11/17 15:00 08/11/17 14:01 08/11/17 13:40 08/11/17 13:01 08/11/17 12:01 08/11/17 12:00 08/11/17 11:01 - Physical Examination General: Other (Unresponsive, ventilated to trach) Cardiac: Positive: Reg Rate and Rhythm - Imaging and Cardiology EKG: image reviewed
--- NOTE | 2017-08-12 11:31 | Progress Note ---
Assessment and Plan 71 y/o male with out of hospital cardiac arrest (Vfib/Vtach), with acute renal failure, and metabolic acidosis and now anoxic encephalopathy, not on sedation. 1. Attempt PSV trials with patient as tolerated. 2. Continue to monitor off sedations. Patient has not been on sedation since transfer to the ICU 15 days ago. 3. Ok with transfer to LTACH, later today. CCT 31 minutes. Subjective Date of service: 08/12/17 Principal diagnosis: cardiac arrest at home. Intubated and unresponcsive Interval history: Currently on PSV trial and tolerating. Accepted to LTACH and will be transferred today. Objective Vital Signs - 12hr 08/11/17 08/12/17 08/12/17 23:32 00:00 00:01 Temperature 98.4 F Pulse Rate 63 Pulse Rate [ 61 Left Dorsalis Pedis] Pulse Rate [ 61 Right Dorsalis Pedis] Respiratory 15 Rate Blood Pressure 135/86 O2 Sat by Pulse 98 100 Oximetry O2 Sat by Pulse 98 Oximetry [ Assessment] 08/12/17 08/12/17 08/12/17 01:00 02:00 03:00 Temperature Pulse Rate 61 62 62 Pulse Rate [ Left Dorsalis Pedis] Pulse Rate [ Right Dorsalis Pedis] Respiratory 16 16 16 Rate Blood Pressure 142/86 141/84 135/82 O2 Sat by Pulse 100 100 98 Oximetry O2 Sat by Pulse Oximetry [ Assessment] 08/12/17 08/12/17 08/12/17 03:41 04:00 05:00 Temperature 98.6 F Pulse Rate 62 61 61 Pulse Rate [ 61 Left Dorsalis Pedis] Pulse Rate [ 61 Right Dorsalis Pedis] Respiratory 16 16 Rate Blood Pressure 134/79 137/84 140/81 O2 Sat by Pulse 98 98 98 Oximetry O2 Sat by Pulse Oximetry [ Assessment] 08/12/17 08/12/17 08/12/17 06:00 07:00 08:00 Temperature 98.6 F Pulse Rate 61 60 58 L Pulse Rate [ Left Dorsalis Pedis] Pulse Rate [ Right Dorsalis Pedis] Respiratory 16 16 16 Rate Blood Pressure 137/82 124/77 118/70 O2 Sat by Pulse 97 97 97 Oximetry O2 Sat by Pulse Oximetry [ Assessment] 08/12/17 08/12/17 08:50 09:10 Temperature Pulse Rate 61 64 Pulse Rate [ Left Dorsalis Pedis] Pulse Rate [ Right Dorsalis Pedis] Respiratory 19 Rate Blood Pressure 117/68 157/86 O2 Sat by Pulse 99 96 Oximetry O2 Sat by Pulse 99 Oximetry [ Assessment] Constitutional: comatose (eyes open only when stimulated, not following commands , flaccid extremities), other (full vent support currently) Eyes: non-icteric ENT: oropharynx moist Neck: supple, no JVD Effort: normal Ascultation: Bilateral: clear, diminished breath sounds Percussion: Bilateral: not dull Cardiovascular: regular rate and rhythm Gastrointestinal: normoactive bowel sounds, soft, non-tender, non-distended Integumentary: normal Extremities: no cyanosis, no edema, pink and warm Neurologic: other (see above) Psychiatric: other (unable to assess) CBC and BMP: 08/10/17 03:32 08/10/17 03:32 ABG, PT/INR, D-dimer: ABG POC ABG pH 7.490 (7.35-7.45) H 08/04/17 10:58 POC ABG pCO2 39.0 (35-45) 08/04/17 10:58 POC ABG pO2 71 (80-105) L 08/04/17 10:58 POC ABG HCO3 29.7 08/04/17 10:58 POC ABG Total CO2 31 08/04/17 10:58 POC ABG O2 Sat 95 08/04/17 10:58 PT/INR, D-dimer PT 14.5 Sec. (12.2-14.9) 08/10/17 03:32 INR 1.07 (0.87-1.13) 08/10/17 03:32 Abnormal lab findings: Abnormal Labs 07/27/17 07/27/17 07/27/17 18:26 18:26 18:26 WBC 15.6 H RBC Hgb Hct MCH MCHC Plt Count 115 L Lymph % (Auto) [place] % (Auto) Lymph # [place] # Seg Neutrophils % Lymphocytes % (Manual) 36.0 H Seg Neutrophils # Seg Neutrophils # Man 8.9 H Lymphocytes # (Manual) 5.6 H Monocytes # (Manual) 1.1 H PT 15.6 H INR 1.18 H APTT 38.5 H POC ABG pH POC ABG pCO2 POC ABG pO2 Sodium Potassium Chloride Carbon Dioxide 21 L BUN Creatinine Glucose 252 H POC Glucose Lactic Acid Calcium 7.7 L Phosphorus Total Creatine Kinase CK-MB (CK-2) CK-MB (CK-2) Rel Index Troponin T 0.090 H C-Reactive Protein Serum Total Protein Albumin Ridxa-9-Dvkcbyawb Gamma Globulins PEP Interpretation Triglycerides 190 H LDL Cholesterol Direct 34 L HDL Cholesterol 21 L Urine WBC (Auto) Urine Creatinine Complement C3 Complement C4 07/27/17 07/27/17 07/27/17 19:02 19:25 21:43 WBC RBC Hgb Hct MCH MCHC Plt Count Lymph % (Auto) [place] % (Auto) Lymph # [place] # Seg Neutrophils % Lymphocytes % (Manual) Seg Neutrophils # Seg Neutrophils # Man Lymphocytes # (Manual) Monocytes # (Manual) PT INR APTT POC ABG pH 7.155 L POC ABG pCO2 47.7 H POC ABG pO2 229 H Sodium Potassium Chloride Carbon Dioxide BUN Creatinine Glucose POC Glucose Lactic Acid 6.00 H* Calcium Phosphorus Total Creatine Kinase CK-MB (CK-2) 4.8 H CK-MB (CK-2) Rel Index Troponin T 0.149 H* D C-Reactive Protein Serum Total Protein Albumin Gnbck-7-Puubamylb Gamma Globulins PEP Interpretation Triglycerides LDL Cholesterol Direct HDL Cholesterol Urine WBC (Auto) Urine Creatinine Complement C3 Complement C4 07/27/17 07/27/17 07/28/17 22:47 22:47 01:47 WBC RBC Hgb Hct MCH MCHC Plt Count Lymph % (Auto) [place] % (Auto) Lymph # [place] # Seg Neutrophils % Lymphocytes % (Manual) Seg Neutrophils # Seg Neutrophils # Man Lymphocytes # (Manual) Monocytes # (Manual) PT INR APTT POC ABG pH POC ABG pCO2 POC ABG pO2 Sodium Potassium Chloride Carbon Dioxide BUN Creatinine Glucose POC Glucose 199 H Lactic Acid 2.40 H* Calcium Phosphorus Total Creatine Kinase 222 H CK-MB (CK-2) 9.4 H CK-MB (CK-2) Rel Index 4.2 H Troponin T 0.852 H* D C-Reactive Protein Serum Total Protein Albumin Ffwyt-0-Iexunklnl Gamma Globulins PEP Interpretation Triglycerides LDL Cholesterol Direct HDL Cholesterol Urine WBC (Auto) Urine Creatinine Complement C3 Complement C4 07/28/17 07/28/17 07/28/17 05:29 05:44 05:44 WBC RBC Hgb Hct MCH MCHC Plt Count Lymph % (Auto) [place] % (Auto) Lymph # [place] # Seg Neutrophils % Lymphocytes % (Manual) Seg Neutrophils # Seg Neutrophils # Man Lymphocytes # (Manual) Monocytes # (Manual) PT INR APTT POC ABG pH 7.268 L POC ABG pCO2 34.8 L POC ABG pO2 Sodium 146 H Potassium 5.1 H D Chloride 113.3 H Carbon Dioxide 18 L BUN 29 H Creatinine 2.0 H D Glucose 194 H POC Glucose Lactic Acid 2.10 H* Calcium 6.8 L Phosphorus Total Creatine Kinase CK-MB (CK-2) CK-MB (CK-2) Rel Index Troponin T C-Reactive Protein Serum Total Protein Albumin Fqxhr-7-Fqfuiiykw Gamma Globulins PEP Interpretation Triglycerides LDL Cholesterol Direct HDL Cholesterol Urine WBC (Auto) Urine Creatinine Complement C3 Complement C4 07/28/17 07/28/17 07/28/17 05:44 06:30 16:00 WBC 16.9 H RBC Hgb Hct MCH MCHC 31 L Plt Count Lymph % (Auto) 8.4 L [place] % (Auto) 7.5 H Lymph # [place] # 1.3 H Seg Neutrophils % 84.1 H Lymphocytes % (Manual) Seg Neutrophils # 14.2 H Seg Neutrophils # Man Lymphocytes # (Manual) Monocytes # (Manual) PT INR APTT POC ABG pH POC ABG pCO2 POC ABG pO2 Sodium 146 H Potassium Chloride Carbon Dioxide BUN Creatinine 2.4 H Glucose POC Glucose Lactic Acid Calcium Phosphorus Total Creatine Kinase 434 H CK-MB (CK-2) 10.8 H CK-MB (CK-2) Rel Index Troponin T 0.521 H* D C-Reactive Protein Serum Total Protein Albumin Nwapn-5-Xhotaxphk Gamma Globulins PEP Interpretation Triglycerides LDL Cholesterol Direct HDL Cholesterol Urine WBC (Auto) Urine Creatinine Complement C3 Complement C4 07/28/17 07/28/17 07/28/17 16:00 16:00 16:20 WBC RBC Hgb Hct MCH MCHC Plt Count Lymph % (Auto) [place] % (Auto) Lymph # [place] # Seg Neutrophils % Lymphocytes % (Manual) Seg Neutrophils # Seg Neutrophils # Man Lymphocytes # (Manual) Monocytes # (Manual) PT INR APTT POC ABG pH POC ABG pCO2 POC ABG pO2 Sodium Potassium Chloride Carbon Dioxide BUN Creatinine Glucose POC Glucose Lactic Acid Calcium Phosphorus Total Creatine Kinase CK-MB (CK-2) CK-MB (CK-2) Rel Index Troponin T C-Reactive Protein Serum Total Protein Albumin Pnaxw-7-Rxoqecaks Gamma Globulins PEP Interpretation Triglycerides LDL Cholesterol Direct HDL Cholesterol Urine WBC (Auto) 12.0 H Urine Creatinine Complement C3 67 L Complement C4 14 L 07/28/17 07/29/17 07/29/17 16:20 04:02 05:00 WBC RBC Hgb Hct MCH MCHC Plt Count Lymph % (Auto) [place] % (Auto) Lymph # [place] # Seg Neutrophils % Lymphocytes % (Manual) Seg Neutrophils # Seg Neutrophils # Man Lymphocytes # (Manual) Monocytes # (Manual) PT INR APTT POC ABG pH 7.304 L POC ABG pCO2 31.6 L POC ABG pO2 Sodium Potassium Chloride 111.7 H Carbon Dioxide 18 L BUN 37 H Creatinine 2.1 H Glucose 213 H POC Glucose Lactic Acid Calcium 6.9 L Phosphorus Total Creatine Kinase CK-MB (CK-2) CK-MB (CK-2) Rel Index Troponin T C-Reactive Protein Serum Total Protein Albumin Kfbui-0-Puvdgthcb Gamma Globulins PEP Interpretation Triglycerides LDL Cholesterol Direct HDL Cholesterol Urine WBC (Auto) Urine Creatinine 58.4 H Complement C3 Complement C4 07/29/17 07/29/17 07/30/17 Unknown Unknown 04:07 WBC 14.4 H RBC Hgb Hct MCH MCHC Plt Count 125 L Lymph % (Auto) [place] % (Auto) Lymph # [place] # Seg Neutrophils % Lymphocytes % (Manual) Seg Neutrophils # Seg Neutrophils # Man Lymphocytes # (Manual) Monocytes # (Manual) PT INR APTT POC ABG pH 7.319 L POC ABG pCO2 27.8 L POC ABG pO2 121 H Sodium Potassium Chloride Carbon Dioxide BUN Creatinine Glucose POC Glucose Lactic Acid Calcium Phosphorus Total Creatine Kinase CK-MB (CK-2) CK-MB (CK-2) Rel Index Troponin T C-Reactive Protein Serum Total Protein 4.9 L Albumin 2.9 L Mkvkc-4-Ptxntnkcx 0.4 H Gamma Globulins 0.5 L PEP Interpretation see below H Triglycerides LDL Cholesterol Direct HDL Cholesterol Urine WBC (Auto) Urine Creatinine Complement C3 Complement C4 07/30/17 07/30/17 07/30/17 12:43 17:22 23:27 WBC RBC Hgb Hct MCH MCHC Plt Count Lymph % (Auto) [place] % (Auto) Lymph # [place] # Seg Neutrophils % Lymphocytes % (Manual) Seg Neutrophils # Seg Neutrophils # Man Lymphocytes # (Manual) Monocytes # (Manual) PT INR APTT POC ABG pH POC ABG pCO2 POC ABG pO2 Sodium Potassium Chloride Carbon Dioxide BUN Creatinine Glucose POC Glucose 134 H 117 H 173 H Lactic Acid Calcium Phosphorus Total Creatine Kinase CK-MB (CK-2) CK-MB (CK-2) Rel Index Troponin T C-Reactive Protein Serum Total Protein Albumin Lnmgo-5-Prtuxpznt Gamma Globulins PEP Interpretation Triglycerides LDL Cholesterol Direct HDL Cholesterol Urine WBC (Auto) Urine Creatinine Complement C3 Complement C4 07/30/17 07/30/17 07/31/17 Unknown Unknown 04:13 WBC 15.6 H RBC Hgb Hct MCH MCHC Plt Count 117 L Lymph % (Auto) [place] % (Auto) Lymph # [place] # Seg Neutrophils % Lymphocytes % (Manual) Seg Neutrophils # Seg Neutrophils # Man Lymphocytes # (Manual) Monocytes # (Manual) PT INR APTT POC ABG pH POC ABG pCO2 26.8 L POC ABG pO2 74 L Sodium 146 H Potassium Chloride 113.8 H Carbon Dioxide 18 L BUN 36 H Creatinine 1.8 H Glucose 177 H POC Glucose Lactic Acid Calcium 6.9 L Phosphorus Total Creatine Kinase CK-MB (CK-2) CK-MB (CK-2) Rel Index Troponin T C-Reactive Protein Serum Total Protein Albumin Uslgl-8-Sbrywfsew Gamma Globulins PEP Interpretation Triglycerides LDL Cholesterol Direct HDL Cholesterol Urine WBC (Auto) Urine Creatinine Complement C3 Complement C4 07/31/17 07/31/17 07/31/17 05:00 05:00 05:01 WBC 18.5 H RBC Hgb Hct MCH MCHC Plt Count 135 L Lymph % (Auto) [place] % (Auto) Lymph # [place] # Seg Neutrophils % Lymphocytes % (Manual) Seg Neutrophils # Seg Neutrophils # Man Lymphocytes # (Manual) Monocytes # (Manual) PT INR APTT POC ABG pH POC ABG pCO2 POC ABG pO2 Sodium 148 H Potassium Chloride 112.8 H Carbon Dioxide 20 L BUN 33 H Creatinine 1.6 H Glucose 188 H POC Glucose 219 H Lactic Acid Calcium 7.1 L Phosphorus Total Creatine Kinase CK-MB (CK-2) CK-MB (CK-2) Rel Index Troponin T C-Reactive Protein Serum Total Protein Albumin Cuhkt-4-Qrlvioqmo Gamma Globulins PEP Interpretation Triglycerides LDL Cholesterol Direct HDL Cholesterol Urine WBC (Auto) Urine Creatinine Complement C3 Complement C4 07/31/17 07/31/17 08/01/17 14:36 17:57 00:02 WBC RBC Hgb Hct MCH MCHC Plt Count Lymph % (Auto) [place] % (Auto) Lymph # [place] # Seg Neutrophils % Lymphocytes % (Manual) Seg Neutrophils # Seg Neutrophils # Man Lymphocytes # (Manual) Monocytes # (Manual) PT INR APTT POC ABG pH POC ABG pCO2 POC ABG pO2 Sodium Potassium Chloride Carbon Dioxide BUN Creatinine Glucose POC Glucose 199 H 216 H 131 H Lactic Acid Calcium Phosphorus Total Creatine Kinase CK-MB (CK-2) CK-MB (CK-2) Rel Index Troponin T C-Reactive Protein Serum Total Protein Albumin Yfqjp-2-Hlkgtzsha Gamma Globulins PEP Interpretation Triglycerides LDL Cholesterol Direct HDL Cholesterol Urine WBC (Auto) Urine Creatinine Complement C3 Complement C4 08/01/17 08/01/17 08/01/17 03:22 04:10 04:10 WBC 19.3 H RBC Hgb Hct MCH MCHC Plt Count 129 L Lymph % (Auto) [place] % (Auto) Lymph # [place] # Seg Neutrophils % Lymphocytes % (Manual) Seg Neutrophils # Seg Neutrophils # Man Lymphocytes # (Manual) Monocytes # (Manual) PT INR APTT POC ABG pH 7.481 H POC ABG pCO2 29.6 L POC ABG pO2 65 L Sodium 148 H Potassium Chloride 113.2 H Carbon Dioxide 21 L BUN 29 H Creatinine Glucose 173 H POC Glucose Lactic Acid Calcium 7.3 L Phosphorus Total Creatine Kinase CK-MB (CK-2) CK-MB (CK-2) Rel Index Troponin T C-Reactive Protein Serum Total Protein Albumin Jyvpl-7-Gcsuueani Gamma Globulins PEP Interpretation Triglycerides LDL Cholesterol Direct HDL Cholesterol Urine WBC (Auto) Urine Creatinine Complement C3 Complement C4 08/01/17 08/01/17 08/01/17 05:18 11:55 18:13 WBC RBC Hgb Hct MCH MCHC Plt Count Lymph % (Auto) [place] % (Auto) Lymph # [place] # Seg Neutrophils % Lymphocytes % (Manual) Seg Neutrophils # Seg Neutrophils # Man Lymphocytes # (Manual) Monocytes # (Manual) PT INR APTT POC ABG pH POC ABG pCO2 POC ABG pO2 Sodium Potassium Chloride Carbon Dioxide BUN Creatinine Glucose POC Glucose 179 H 174 H 189 H Lactic Acid Calcium Phosphorus Total Creatine Kinase CK-MB (CK-2) CK-MB (CK-2) Rel Index Troponin T C-Reactive Protein Serum Total Protein Albumin Wxuzq-4-Hlxvlcpgt Gamma Globulins PEP Interpretation Triglycerides LDL Cholesterol Direct HDL Cholesterol Urine WBC (Auto) Urine Creatinine Complement C3 Complement C4 08/01/17 08/01/17 08/02/17 19:42 22:01 00:01 WBC RBC Hgb Hct MCH MCHC Plt Count Lymph % (Auto) [place] % (Auto) Lymph # [place] # Seg Neutrophils % Lymphocytes % (Manual) Seg Neutrophils # Seg Neutrophils # Man Lymphocytes # (Manual) Monocytes # (Manual) PT INR APTT POC ABG pH POC ABG pCO2 POC ABG pO2 Sodium Potassium Chloride Carbon Dioxide BUN Creatinine Glucose POC Glucose 165 H 129 H Lactic Acid Calcium Phosphorus Total Creatine Kinase CK-MB (CK-2) CK-MB (CK-2) Rel Index Troponin T C-Reactive Protein 4.00 H Serum Total Protein Albumin Uqztt-4-Bkjiujtiv Gamma Globulins PEP Interpretation Triglycerides LDL Cholesterol Direct HDL Cholesterol Urine WBC (Auto) Urine Creatinine Complement C3 Complement C4 08/02/17 08/02/17 08/02/17 03:40 04:10 06:00 WBC RBC Hgb Hct MCH MCHC Plt Count Lymph % (Auto) [place] % (Auto) Lymph # [place] # Seg Neutrophils % Lymphocytes % (Manual) Seg Neutrophils # Seg Neutrophils # Man Lymphocytes # (Manual) Monocytes # (Manual) PT INR APTT POC ABG pH 7.474 H POC ABG pCO2 33.8 L POC ABG pO2 73 L Sodium 148 H Potassium Chloride 109.3 H Carbon Dioxide BUN 31 H Creatinine Glucose 168 H POC Glucose 172 H Lactic Acid Calcium 6.8 L Phosphorus Total Creatine Kinase CK-MB (CK-2) CK-MB (CK-2) Rel Index Troponin T C-Reactive Protein Serum Total Protein Albumin Aeycb-3-Fojomoebc Gamma Globulins PEP Interpretation Triglycerides LDL Cholesterol Direct HDL Cholesterol Urine WBC (Auto) Urine Creatinine Complement C3 Complement C4 08/02/17 08/02/17 08/02/17 07:09 11:25 17:46 WBC 20.1 H RBC Hgb 11.7 L Hct MCH MCHC Plt Count 127 L Lymph % (Auto) [place] % (Auto) Lymph # [place] # Seg Neutrophils % Lymphocytes % (Manual) Seg Neutrophils # Seg Neutrophils # Man Lymphocytes # (Manual) Monocytes # (Manual) PT INR APTT POC ABG pH POC ABG pCO2 POC ABG pO2 Sodium Potassium Chloride Carbon Dioxide BUN Creatinine Glucose POC Glucose 159 H 171 H Lactic Acid Calcium Phosphorus Total Creatine Kinase CK-MB (CK-2) CK-MB (CK-2) Rel Index Troponin T C-Reactive Protein Serum Total Protein Albumin Pwhnl-1-Yrxhiqbsq Gamma Globulins PEP Interpretation Triglycerides LDL Cholesterol Direct HDL Cholesterol Urine WBC (Auto) Urine Creatinine Complement C3 Complement C4 08/02/17 08/03/17 08/03/17 22:30 00:05 03:29 WBC RBC Hgb Hct MCH MCHC Plt Count Lymph % (Auto) [place] % (Auto) Lymph # [place] # Seg Neutrophils % Lymphocytes % (Manual) Seg Neutrophils # Seg Neutrophils # Man Lymphocytes # (Manual) Monocytes # (Manual) PT INR APTT POC ABG pH POC ABG pCO2 POC ABG pO2 Sodium 148 H Potassium Chloride 109.1 H Carbon Dioxide BUN 32 H Creatinine Glucose 179 H POC Glucose 179 H 199 H Lactic Acid Calcium 6.9 L Phosphorus Total Creatine Kinase CK-MB (CK-2) CK-MB (CK-2) Rel Index Troponin T C-Reactive Protein Serum Total Protein Albumin Vtesf-6-Rkdjxaswy Gamma Globulins PEP Interpretation Triglycerides LDL Cholesterol Direct HDL Cholesterol Urine WBC (Auto) Urine Creatinine Complement C3 Complement C4 08/03/17 08/03/17 08/03/17 03:29 05:40 06:01 WBC 19.9 H RBC Hgb Hct MCH MCHC Plt Count 130 L Lymph % (Auto) 7.0 L [place] % (Auto) 11.1 H Lymph # [place] # 2.2 H Seg Neutrophils % 81.4 H Lymphocytes % (Manual) Seg Neutrophils # 16.2 H Seg Neutrophils # Man Lymphocytes # (Manual) Monocytes # (Manual) PT INR APTT POC ABG pH 7.468 H POC ABG pCO2 POC ABG pO2 70 L Sodium Potassium Chloride Carbon Dioxide BUN Creatinine Glucose POC Glucose 179 H Lactic Acid Calcium Phosphorus Total Creatine Kinase CK-MB (CK-2) CK-MB (CK-2) Rel Index Troponin T C-Reactive Protein Serum Total Protein Albumin Yhwoc-3-Oetkckmuf Gamma Globulins PEP Interpretation Triglycerides LDL Cholesterol Direct HDL Cholesterol Urine WBC (Auto) Urine Creatinine Complement C3 Complement C4 08/03/17 08/03/17 08/04/17 11:43 17:34 00:02 WBC RBC Hgb Hct MCH MCHC Plt Count Lymph % (Auto) [place] % (Auto) Lymph # [place] # Seg Neutrophils % Lymphocytes % (Manual) Seg Neutrophils # Seg Neutrophils # Man Lymphocytes # (Manual) Monocytes # (Manual) PT INR APTT POC ABG pH POC ABG pCO2 POC ABG pO2 Sodium Potassium Chloride Carbon Dioxide BUN Creatinine Glucose POC Glucose 166 H 193 H 191 H Lactic Acid Calcium Phosphorus Total Creatine Kinase CK-MB (CK-2) CK-MB (CK-2) Rel Index Troponin T C-Reactive Protein Serum Total Protein Albumin Eighe-9-Clcvlzgxv Gamma Globulins PEP Interpretation Triglycerides LDL Cholesterol Direct HDL Cholesterol Urine WBC (Auto) Urine Creatinine Complement C3 Complement C4 08/04/17 08/04/17 08/04/17 05:18 05:44 05:44 WBC 16.8 H RBC Hgb 11.7 L Hct MCH 27 L MCHC Plt Count Lymph % (Auto) 5.0 L [place] % (Auto) 9.5 H Lymph # 0.8 L [place] # 1.6 H Seg Neutrophils % 84.7 H Lymphocytes % (Manual) Seg Neutrophils # 14.2 H Seg Neutrophils # Man Lymphocytes # (Manual) Monocytes # (Manual) PT INR APTT POC ABG pH POC ABG pCO2 POC ABG pO2 Sodium 148 H Potassium Chloride 108.1 H Carbon Dioxide BUN 31 H Creatinine Glucose 181 H POC Glucose 173 H Lactic Acid Calcium 7.6 L Phosphorus Total Creatine Kinase CK-MB (CK-2) CK-MB (CK-2) Rel Index Troponin T C-Reactive Protein Serum Total Protein Albumin Reekz-9-Cudivlatf Gamma Globulins PEP Interpretation Triglycerides LDL Cholesterol Direct HDL Cholesterol Urine WBC (Auto) Urine Creatinine Complement C3 Complement C4 08/04/17 08/04/17 08/04/17 10:58 12:34 17:35 WBC RBC Hgb Hct MCH MCHC Plt Count Lymph % (Auto) [place] % (Auto) Lymph # [place] # Seg Neutrophils % Lymphocytes % (Manual) Seg Neutrophils # Seg Neutrophils # Man Lymphocytes # (Manual) Monocytes # (Manual) PT INR APTT POC ABG pH 7.490 H POC ABG pCO2 POC ABG pO2 71 L Sodium Potassium Chloride Carbon Dioxide BUN Creatinine Glucose POC Glucose 191 H 188 H Lactic Acid Calcium Phosphorus Total Creatine Kinase CK-MB (CK-2) CK-MB (CK-2) Rel Index Troponin T C-Reactive Protein Serum Total Protein Albumin Rwwdo-0-Xbhaayerj Gamma Globulins PEP Interpretation Triglycerides LDL Cholesterol Direct HDL Cholesterol Urine WBC (Auto) Urine Creatinine Complement C3 Complement C4 08/05/17 08/05/17 08/05/17 00:00 05:32 07:34 WBC 14.4 H RBC Hgb 10.6 L Hct 32.3 L MCH MCHC Plt Count Lymph % (Auto) 6.7 L [place] % (Auto) 8.6 H Lymph # 1.0 L [place] # 1.2 H Seg Neutrophils % 81.8 H Lymphocytes % (Manual) Seg Neutrophils # 11.8 H Seg Neutrophils # Man Lymphocytes # (Manual) Monocytes # (Manual) PT INR APTT POC ABG pH POC ABG pCO2 POC ABG pO2 Sodium Potassium Chloride Carbon Dioxide BUN Creatinine Glucose POC Glucose 216 H 240 H Lactic Acid Calcium Phosphorus Total Creatine Kinase CK-MB (CK-2) CK-MB (CK-2) Rel Index Troponin T C-Reactive Protein Serum Total Protein Albumin Bztjb-8-Ajcsftsje Gamma Globulins PEP Interpretation Triglycerides LDL Cholesterol Direct HDL Cholesterol Urine WBC (Auto) Urine Creatinine Complement C3 Complement C4 08/05/17 08/05/17 08/05/17 07:34 12:36 17:51 WBC RBC Hgb Hct MCH MCHC Plt Count Lymph % (Auto) [place] % (Auto) Lymph # [place] # Seg Neutrophils % Lymphocytes % (Manual) Seg Neutrophils # Seg Neutrophils # Man Lymphocytes # (Manual) Monocytes # (Manual) PT INR APTT POC ABG pH POC ABG pCO2 POC ABG pO2 Sodium 148 H Potassium Chloride 107.7 H Carbon Dioxide BUN 32 H Creatinine Glucose 241 H POC Glucose 206 H 190 H Lactic Acid Calcium 7.6 L Phosphorus 1.90 L Total Creatine Kinase CK-MB (CK-2) CK-MB (CK-2) Rel Index Troponin T C-Reactive Protein Serum Total Protein Albumin Sctvr-0-Jqrtfpouo Gamma Globulins PEP Interpretation Triglycerides LDL Cholesterol Direct HDL Cholesterol Urine WBC (Auto) Urine Creatinine Complement C3 Complement C4 08/05/17 08/06/17 08/06/17 22:11 00:35 04:34 WBC 16.2 H RBC Hgb 11.6 L Hct MCH MCHC Plt Count Lymph % (Auto) 5.8 L [place] % (Auto) 9.3 H Lymph # 0.9 L [place] # 1.5 H Seg Neutrophils % 83.5 H Lymphocytes % (Manual) Seg Neutrophils # 13.5 H Seg Neutrophils # Man Lymphocytes # (Manual) Monocytes # (Manual) PT INR APTT POC ABG pH POC ABG pCO2 POC ABG pO2 Sodium Potassium Chloride Carbon Dioxide BUN Creatinine Glucose POC Glucose 169 H 191 H Lactic Acid Calcium Phosphorus Total Creatine Kinase CK-MB (CK-2) CK-MB (CK-2) Rel Index Troponin T C-Reactive Protein Serum Total Protein Albumin Jszfc-1-Bhhjngjss Gamma Globulins PEP Interpretation Triglycerides LDL Cholesterol Direct HDL Cholesterol Urine WBC (Auto) Urine Creatinine Complement C3 Complement C4 08/06/17 08/06/17 08/06/17 04:34 05:44 11:45 WBC RBC Hgb Hct MCH MCHC Plt Count Lymph % (Auto) [place] % (Auto) Lymph # [place] # Seg Neutrophils % Lymphocytes % (Manual) Seg Neutrophils # Seg Neutrophils # Man Lymphocytes # (Manual) Monocytes # (Manual) PT INR APTT POC ABG pH POC ABG pCO2 POC ABG pO2 Sodium Potassium Chloride Carbon Dioxide BUN 30 H Creatinine Glucose 241 H POC Glucose 223 H 239 H Lactic Acid Calcium 8.0 L Phosphorus Total Creatine Kinase CK-MB (CK-2) CK-MB (CK-2) Rel Index Troponin T C-Reactive Protein Serum Total Protein Albumin Pyedh-0-Mphhgqrfz Gamma Globulins PEP Interpretation Triglycerides LDL Cholesterol Direct HDL Cholesterol Urine WBC (Auto) Urine Creatinine Complement C3 Complement C4 08/06/17 08/06/17 08/07/17 17:55 23:43 05:24 WBC 13.5 H RBC 3.58 L Hgb 10.4 L Hct 31.4 L MCH MCHC Plt Count Lymph % (Auto) 5.8 L [place] % (Auto) 8.7 H Lymph # 0.8 L [place] # 1.2 H Seg Neutrophils % 83.2 H Lymphocytes % (Manual) Seg Neutrophils # 11.2 H Seg Neutrophils # Man Lymphocytes # (Manual) Monocytes # (Manual) PT INR APTT POC ABG pH POC ABG pCO2 POC ABG pO2 Sodium Potassium Chloride Carbon Dioxide BUN Creatinine Glucose POC Glucose 227 H 243 H Lactic Acid Calcium Phosphorus Total Creatine Kinase CK-MB (CK-2) CK-MB (CK-2) Rel Index Troponin T C-Reactive Protein Serum Total Protein Albumin Dtqxc-5-Xuupwpegv Gamma Globulins PEP Interpretation Triglycerides LDL Cholesterol Direct HDL Cholesterol Urine WBC (Auto) Urine Creatinine Complement C3 Complement C4 08/07/17 08/07/17 08/07/17 05:24 05:38 18:16 WBC RBC Hgb Hct MCH MCHC Plt Count Lymph % (Auto) [place] % (Auto) Lymph # [place] # Seg Neutrophils % Lymphocytes % (Manual) Seg Neutrophils # Seg Neutrophils # Man Lymphocytes # (Manual) Monocytes # (Manual) PT INR APTT POC ABG pH POC ABG pCO2 POC ABG pO2 Sodium Potassium Chloride Carbon Dioxide BUN 28 H Creatinine Glucose 184 H POC Glucose 192 H 189 H Lactic Acid Calcium 7.8 L Phosphorus Total Creatine Kinase CK-MB (CK-2) CK-MB (CK-2) Rel Index Troponin T C-Reactive Protein Serum Total Protein Albumin [id number] Gamma Globulins PEP Interpretation Triglycerides LDL Cholesterol Direct HDL Cholesterol Urine WBC (Auto) Urine Creatinine Complement C3 Complement C4 08/08/17 08/08/17 08/08/17 00:03 06:23 06:33 WBC 14.8 H RBC Hgb 11.0 L Hct 33.7 L MCH MCHC Plt Count Lymph % (Auto) 7.6 L [place] % (Auto) 9.9 H Lymph # 1.1 L [place] # 1.5 H Seg Neutrophils % 80.4 H Lymphocytes % (Manual) Seg Neutrophils # 11.9 H Seg Neutrophils # Man Lymphocytes # (Manual) Monocytes # (Manual) PT INR APTT POC ABG pH POC ABG pCO2 POC ABG pO2 Sodium Potassium Chloride Carbon Dioxide BUN Creatinine Glucose POC Glucose 205 H 173 H Lactic Acid Calcium Phosphorus Total Creatine Kinase CK-MB (CK-2) CK-MB (CK-2) Rel Index Troponin T C-Reactive Protein Serum Total Protein Albumin Lrequ-7-Iiqshihfy Gamma Globulins PEP Interpretation Triglycerides LDL Cholesterol Direct HDL Cholesterol Urine WBC (Auto) Urine Creatinine Complement C3 Complement C4 08/08/17 08/08/17 08/08/17 06:33 11:32 17:58 WBC RBC Hgb Hct MCH MCHC Plt Count Lymph % (Auto) [place] % (Auto) Lymph # [place] # Seg Neutrophils % Lymphocytes % (Manual) Seg Neutrophils # Seg Neutrophils # Man Lymphocytes # (Manual) Monocytes # (Manual) PT INR APTT POC ABG pH POC ABG pCO2 POC ABG pO2 Sodium Potassium Chloride Carbon Dioxide BUN 29 H Creatinine Glucose 195 H POC Glucose 188 H 215 H Lactic Acid Calcium 8.2 L Phosphorus Total Creatine Kinase CK-MB (CK-2) CK-MB (CK-2) Rel Index Troponin T C-Reactive Protein Serum Total Protein Albumin Twmnc-6-Qqbmoaszt Gamma Globulins PEP Interpretation Triglycerides LDL Cholesterol Direct HDL Cholesterol Urine WBC (Auto) Urine Creatinine Complement C3 Complement C4 08/09/17 08/09/17 08/09/17 00:16 05:07 12:05 WBC RBC Hgb Hct MCH MCHC Plt Count Lymph % (Auto) [place] % (Auto) Lymph # [place] # Seg Neutrophils % Lymphocytes % (Manual) Seg Neutrophils # Seg Neutrophils # Man Lymphocytes # (Manual) Monocytes # (Manual) PT INR APTT POC ABG pH POC ABG pCO2 POC ABG pO2 Sodium Potassium Chloride Carbon Dioxide BUN Creatinine Glucose POC Glucose 193 H 231 H Lactic Acid Calcium Phosphorus Total Creatine Kinase CK-MB (CK-2) CK-MB (CK-2) Rel Index Troponin T C-Reactive Protein Serum Total Protein Albumin Mkzbb-1-Rijkfodfk Gamma Globulins PEP Interpretation Triglycerides LDL Cholesterol Direct HDL Cholesterol Urine WBC (Auto) 167.0 H Urine Creatinine Complement C3 Complement C4 08/09/17 08/09/17 08/09/17 12:10 13:58 14:56 WBC 15.3 H RBC Hgb 10.8 L Hct 33.0 L MCH MCHC Plt Count Lymph % (Auto) [place] % (Auto) Lymph # [place] # Seg Neutrophils % Lymphocytes % (Manual) Seg Neutrophils # Seg Neutrophils # Man Lymphocytes # (Manual) Monocytes # (Manual) PT INR APTT POC ABG pH POC ABG pCO2 POC ABG pO2 Sodium 136 L Potassium Chloride 97.6 L Carbon Dioxide BUN 27 H Creatinine Glucose 165 H POC Glucose 221 H Lactic Acid Calcium 8.2 L Phosphorus Total Creatine Kinase CK-MB (CK-2) CK-MB (CK-2) Rel Index Troponin T C-Reactive Protein Serum Total Protein Albumin Qkiam-7-Joiderovb Gamma Globulins PEP Interpretation Triglycerides LDL Cholesterol Direct HDL Cholesterol Urine WBC (Auto) Urine Creatinine Complement C3 Complement C4 08/09/17 08/09/17 08/10/17 17:30 23:39 03:32 WBC 12.3 H RBC Hgb 10.8 L Hct 32.5 L MCH MCHC Plt Count Lymph % (Auto) 10.2 L [place] % (Auto) 13.0 H Lymph # [place] # 1.6 H Seg Neutrophils % 75.4 H Lymphocytes % (Manual) Seg Neutrophils # 9.3 H Seg Neutrophils # Man Lymphocytes # (Manual) Monocytes # (Manual) PT INR APTT POC ABG pH POC ABG pCO2 POC ABG pO2 Sodium Potassium Chloride Carbon Dioxide BUN Creatinine Glucose POC Glucose 186 H 177 H Lactic Acid Calcium Phosphorus Total Creatine Kinase CK-MB (CK-2) CK-MB (CK-2) Rel Index Troponin T C-Reactive Protein Serum Total Protein Albumin Fjtwi-0-Uibztzhtb Gamma Globulins PEP Interpretation Triglycerides LDL Cholesterol Direct HDL Cholesterol Urine WBC (Auto) Urine Creatinine Complement C3 Complement C4 08/10/17 08/10/17 08/10/17 03:32 05:13 12:06 WBC RBC Hgb Hct MCH MCHC Plt Count Lymph % (Auto) [place] % (Auto) Lymph # [place] # Seg Neutrophils % Lymphocytes % (Manual) Seg Neutrophils # Seg Neutrophils # Man Lymphocytes # (Manual) Monocytes # (Manual) PT INR APTT POC ABG pH POC ABG pCO2 POC ABG pO2 Sodium 136 L Potassium Chloride 97.5 L Carbon Dioxide BUN 30 H Creatinine Glucose 144 H POC Glucose 135 H 145 H Lactic Acid Calcium 8.2 L Phosphorus Total Creatine Kinase CK-MB (CK-2) CK-MB (CK-2) Rel Index Troponin T C-Reactive Protein Serum Total Protein Albumin Zeqbz-5-Cahbjbalc Gamma Globulins PEP Interpretation Triglycerides LDL Cholesterol Direct HDL Cholesterol Urine WBC (Auto) Urine Creatinine Complement C3 Complement C4 08/10/17 08/10/17 08/11/17 18:06 21:10 05:28 WBC RBC Hgb Hct MCH MCHC Plt Count Lymph % (Auto) [place] % (Auto) Lymph # [place] # Seg Neutrophils % Lymphocytes % (Manual) Seg Neutrophils # Seg Neutrophils # Man Lymphocytes # (Manual) Monocytes # (Manual) PT INR APTT POC ABG pH POC ABG pCO2 POC ABG pO2 Sodium Potassium Chloride Carbon Dioxide BUN Creatinine Glucose POC Glucose 114 H 119 H 108 H Lactic Acid Calcium Phosphorus Total Creatine Kinase CK-MB (CK-2) CK-MB (CK-2) Rel Index Troponin T C-Reactive Protein Serum Total Protein Albumin Zqdqk-8-Mpfevadpc Gamma Globulins PEP Interpretation Triglycerides LDL Cholesterol Direct HDL Cholesterol Urine WBC (Auto) Urine Creatinine Complement C3 Complement C4 08/11/17 08/11/17 11:36 21:57 WBC RBC Hgb Hct MCH MCHC Plt Count Lymph % (Auto) [place] % (Auto) Lymph # [place] # Seg Neutrophils % Lymphocytes % (Manual) Seg Neutrophils # Seg Neutrophils # Man Lymphocytes # (Manual) Monocytes # (Manual) PT INR APTT POC ABG pH POC ABG pCO2 POC ABG pO2 Sodium Potassium Chloride Carbon Dioxide BUN Creatinine Glucose POC Glucose 107 H 113 H Lactic Acid Calcium Phosphorus Total Creatine Kinase CK-MB (CK-2) CK-MB (CK-2) Rel Index Troponin T C-Reactive Protein Serum Total Protein Albumin Twvyf-2-Wmtmoptwu Gamma Globulins PEP Interpretation Triglycerides LDL Cholesterol Direct HDL Cholesterol Urine WBC (Auto) Urine Creatinine Complement C3 Complement C4
[2017-08-12] MEDS: ZESTRIL PO SCH (11:36)
[2017-08-12] MEDS: COREG PO SCH (11:37)
[2017-08-12] MEDS: CORDARONE PO SCH (11:37)
[2017-08-12] MEDS: BABY ASPIRIN FEEDTUBE SCH (11:37)
[2017-08-12] MEDS: PEPCID IV SCH (11:38)
--- NOTE | 2017-08-12 11:51 | Discharge Summary ---
Providers - Providers Date of Admission: 07/27/17 22:37 Attending physician: JENNIFER LUZ MD 08/09/17 11:59 Consult to Physician [CONS] Routine Consulting Provider: APRYL CHUN I Reason For Exam: Need of trach and PEG Place consult to:: Apryl Chun Notified:: yes Phone number called:: [phone] Was contact made?: Yes If yes, spoke with:: Vivian Time called:: 13:15 07/27/17 18:19 Consult to Physician [CONS] Stat Consulting Provider: RANDY PERALTA Reason For Exam: arrest Notified:: yes 07/27/17 19:12 Consult to Physician [CONS] Urgent Consulting Provider: TROY ZUÑIGA Reason For Exam: resp failure Notified:: awaiting call back 07/28/17 10:33 Consult to Physician [CONS] Routine Consulting Provider: TALISHA VERGARA Reason For Exam: KATELYN post cardiac arrest Place consult to:: Talisha Vergara Notified:: office Phone number called:: [phone] Was contact made?: Yes If yes, spoke with:: foot miter operator Time called:: 12:30 07/30/17 11:32 Consult to Physician [CONS] Routine Consulting Provider: RUBEN MARCELO Reason For Exam: AMS Place consult to:: Corine Correia Notified:: yes Phone number called:: [phone] Was contact made?: Yes If yes, spoke with:: Donavon Time called:: 11:44 07/30/17 12:18 Consult to Physician [CONS] Routine Consulting Provider: CORINE DOUGLAS Reason For Exam: Anoxic Encephelopathy Place consult to:: James Notified:: Yes 07/30/17 12:23 Consult to Dietitian/Nutrition [CONS] Routine Physician Instructions: Reason For Exam: Tube feeding Reason for Consult: Tube feeding 07/30/17 14:31 Consult to Dietitian/Nutrition [CONS] Routine Physician Instructions: Reason For Exam: Reason for Consult: Write/Manage Tube Feeding 08/01/17 12:33 Consult to Physician [CONS] Routine Consulting Provider: AFRICA PIZANO Reason For Exam: leucocytosis Notified:: please call 08/07/17 09:03 Consult to Wound/ET Nurse [CONS] Urgent Reason For Exam: wound eval: pt's tongue has slight bleeding... Hospitalization Reason for admission: S/P cardiac arrest, vegetative state Condition: Critical Hospital course: 71 year old man with history of CAD, CHF was brought to the emergency room after he had a cardiac arrest at home. He had a cough productive of yellow phlegm, fever 3 days. EMS was called, CPR was continued for another 40 minutes prior to arrival in the emergency room, he had a V. fib or V. tach rhythm for which he was shocked per EMS. CPR was continued in the emergency room, he was hypotensive and placed on levophed and vasopressin. Remains unresponsive. Neurologist evaaluated him EEG no active seizure. Showed slow waves Cardio-resp arrest at home, continue amiodarone Persistent vegetative state; PEG and trach placed Shock. Cardiogenic +/- septic shock. V fib sp shock, currently patient's BP is stable and off pressors. patient refused ICD a month ago. Ischemic cardiomyopathy, LVEF 15-20%, CAD s/p CABG 2005 at [place], ONEILL to LAD; COREY to RI; SVG to PLOM; SVG to RV branch and PDA branch. Continue carvedilol, aspirin, lisinopril. Hematuria: patient has prostate cancer and currently hematuria resolved. Acute hypoxic Respiratory failure on MV >96 hours: patient is still on MV and patient will continuw with MV @[facility] through the [facility]. Acute kidney Injury due to acute tubular necrosis, Resolved Anoxic Encephalopathy: Secondary to cardiac arrest. Neurology consult appreciated. Pneumonia/Septic shock: left lobar, likely aspiration. Patient was treated with IV antibiotics, ID consult appreciated. Hyperglycemia: Monitor blood sugars with sliding scale coverage for now [facility] Patient's disease condition was explained to his in detail. Disposition: [id number]/[id number] [facility] Time spent for discharge: 31 minutes - Discharge Diagnoses (1) CAD (coronary artery disease) Status: Acute (2) Cardiac arrest Status: Acute (3) Cardiomyopathy Status: Acute (4) SIRS (systemic inflammatory response syndrome) Status: Acute (5) Ventricular fibrillation Status: Acute (6) Vegetative state Status: Acute Core Measure Documentation - Palliative Care Palliative Care/ Comfort Measures: Not Applicable - Core Measures Any of the following diagnoses?: none Exam - Physical Exam Narrative exam: Patient is on PEG and trach. On mechanical ventilation. The patient appeared well nourished and normally developed. Vital signs as documented. Head exam is unremarkable. No scleral icterus . Neck is without jugular venous distension, thyromegaly, or carotid bruits. Lungs are clear to auscultation. Cardiac exam reveals regular rate and Rhythm. First and second heart sounds normal. No murmurs, rubs or gallops. Abdominal exam reveals normal bowel sounds, no masses, no organomegaly and no aortic enlargement. Extremities are nonedematous and both femoral and pedal pulses are normal. blood in the catheter. [employer]: Comatose. - Constitutional Vitals: Temp Pulse Resp BP Pulse Ox 98.6 F 61 19 125/75 96 08/12/17 08:00 08/12/17 11:37 08/12/17 09:10 08/12/17 11:37 08/12/17 09:10 Plan Activity: other (non ambulatory) Weight Bearing Status: Non-Weight Bearing Diet: per dietitian instruction Wound: per wound nurse instructions Follow up with: PRIMARY CARE, [Referring] - 7 Days
[2017-08-12 19:11] VITALS: BP 129/81
== END 2017-08-12 16:00 | DRG 4 ==
LOC: ED 17:54 → CC1 22:37
PROVIDERS: ADMIT Internal Medicine; ATTEND Internal Medicine
PROC: 4A033R1 Measurement of Arterial Saturation, Peripheral, Percutaneous Approach (ICD-10-PCS; 2017-07-27)
PROC: 5A12012 Performance of Cardiac Output, Single, Manual (ICD-10-PCS; 2017-07-27)
PROC: 06HN33Z Insertion of Infusion Device into Left Femoral Vein, Percutaneous Approach (ICD-10-PCS; 2017-07-27)
PROC: B54CZZA Ultrasonography of Left Lower Extremity Veins, Guidance (ICD-10-PCS; 2017-07-27)
PROC: 3E0234Z Introduction of Serum, Toxoid and Vaccine into Muscle, Percutaneous Approach (ICD-10-PCS; 2017-07-28)
PROC: 5A1955Z Respiratory Ventilation, Greater than 96 Consecutive Hours (ICD-10-PCS; principal; 2017-08-05)
PROC: 0B113F4 Bypass Trachea to Cutaneous with Tracheostomy Device, Percutaneous Approach (ICD-10-PCS; 2017-08-10)
PROC: 0DH63UZ Insertion of Feeding Device into Stomach, Percutaneous Approach (ICD-10-PCS; 2017-08-10)
DX: A41.9 Sepsis, unspecified organism (principal); J96.01 Acute respiratory failure with hypoxia; N17.0 Acute kidney failure with tubular necrosis; I46.9 Cardiac arrest, cause unspecified; R65.21 Severe sepsis with septic shock; I49.01 Ventricular fibrillation; J18.1 Lobar pneumonia, unspecified organism; G93.1 Anoxic brain damage, not elsewhere classified; E87.0 Hyperosmolality and hypernatremia; I25.10 Atherosclerotic heart disease of native coronary artery without angina pectoris; I50.9 Heart failure, unspecified; D69.6 Thrombocytopenia, unspecified; Z23 Encounter for immunization; Z88.8 Allergy status to other drugs, medicaments and biological substances; Z95.1 Presence of aortocoronary bypass graft; E11.9 Type 2 diabetes mellitus without complications; I25.5 Ischemic cardiomyopathy; Z82.49 Family history of ischemic heart disease and other diseases of the circulatory system; Z79.82 Long term (current) use of aspirin
CPT/HCPCS: 36415; 36600; 70450; 71010; 71045; 71250; 74000; 74018; 74176; 76770; 80048; 80061; 80074; 80202; 80307; 81001; 82140; 82550; 82553; 82565; 82570; 82803; 82962; 83735; 84100; 84165; 84295; 84300; 84484; 85007; 85025; 85027; 85610; 85730; 86021; 86140; 86160; 86225; 86850; 86900; 86901; 87040; 87070; 87076; 87086; 87186; 87205; 87400; 87449; 89050; 90686; 90732; 92950; 93005; 93010; 93306; 94002; 94003; 95819; 96361; 96365; A6250; J0171; J0282; J0330; J0696; J1650; J1815; J1940; J2060; J2250; J2543; J2704; J3010; J3370; J7030; J7040; J7050; J7060; J7070